=== PATIENT | female | born 1965 | race Hispanic/Latino ===

== ENCOUNTER 2017-07-09 09:50 | Emergency (ER) | payer BC ==
[2017-07-09 11:03] LABS: Absolute Lymphocytes (CBC) 1.8 K/uL (0.7-4.9); Absolute Monocytes 0.6 K/uL (0.1-1.3); Absolute Neutrophil 5.4 K/uL (1.8-8.0); Basophils % 0.3 % (0-1.3); Hematocrit 46.4 % (36.0-45.0); Lymphocytes % 22.7 % (15.3-44.8); MCH 31.3 pg (27.0-35.0); MCV 90.3 fL (80-100); MPV 8.7 fL (7.6-11.3); RBC Red Blood Cell Count 5.14 M/uL (3.86-4.86)
[2017-07-09 11:08] LABS: Protime INR 1.03
[2017-07-09 11:15] LABS: Bicarbonate 29 mEq/L (21-31); Glucose Level 98 mg/dL (65-120); Lipase 19 U/L (22-51); Sodium Level 137 mEq/L (135-145)
[2017-07-09] MEDS ORDERED: ASPIRIN 81 MG CHEWABLE TABLET ONE (11:16)
[2017-07-09 11:21] LABS: ALT/SGPT 40 IU/L (10-60); AST/SGOT 30 IU/L (10-42); Alkaline Phosphatase 94 IU/L (42-121); BUN Blood Urea Nitrogen 11 mg/dL (6-20); Bilirubin Direct 0.1 mg/dL (0-0.2); Bilirubin Total 0.4 mg/dL (0.3-1.2); Creatine Phosphokinase 109 IU/L (22-269); Magnesium 2.2 mg/dL (1.8-2.5); Protein, Total 8.3 g/dL (6.0-8.3)
[2017-07-09 11:23] LABS: CKMB Creatine Kinase MB 2.2 ng/ml (0.3-4.0)
--- NOTE | 2017-07-09 11:46 | RAD REPORT ---
EXAM DESCRIPTION: Vikki Single View07/09/2017 11:15 am CLINICAL HISTORY: Chest pain COMPARISON: April 2017 FINDINGS: The lungs appear clear of acute infiltrate. The heart is normal size IMPRESSION: No acute abnormalities displayed
[2017-07-09 11:47] LABS: Urine Blood NEGATIVE (NEG); Urine Glucose NEGATIVE (NEG); Urine Protein NEGATIVE (NEG)
--- NOTE | 2017-07-09 11:55 | EDPHYS ---
Physician Documentation [facility] Name: Sonya Duff Age: 52 yrs Sex: Female : 1965 Arrival Date: 07/09/2017 Time: 09:52 Bed 8 Private MD: Reema Lehman ED Physician Marcos Cody HPI: 07/09 10:35 This 52 yrs old Female presents to ER via Ambulatory with complaints of Low cp Back Pain, Chest Pain. 10:35 The patient presents with pain that is acute, with no known mechanism of injury. cp 10:35 The symptoms are located in the generalized back pain that started in upper back and cp now radiates to under left breast. The problem was sustained from unknown cause. Onset: The symptoms/episode began/occurred yesterday. Associated signs and symptoms: Pertinent negatives: constipation, dysuria, fever, headache, incontinence, numbness, urinary retention, vomiting, weakness. Severity of symptoms: in the emergency department the symptoms are unchanged, despite home interventions. 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 - Social history:: Smoking status: Patient/guardian denies using tobacco. ROS: 10:40 Constitutional: Negative for body aches, chills, fever, poor PO intake. cp 10:40 Eyes: Negative for injury, pain, redness, and discharge. cp 10:40 ENT: Negative for drainage from ear(s), ear pain, sore throat, difficulty swallowing, difficulty handling secretions. 10:40 Neck: Negative for pain with movement, pain at rest, stiffness, swollen nodes, tenderness. 10:40 Cardiovascular: Positive for chest pain, Negative for edema, palpitations. 10:40 Respiratory: Negative for cough, shortness of breath, wheezing. 10:40 Back: Positive for pain at rest, pain with movement. 10:40 : Negative for urinary symptoms. 10:40 Skin: Negative for cellulitis, rash. 10:40 Neuro: Negative for altered mental status, dizziness, headache, weakness. 10:40 All other systems are negative. Exam: 10:30 ECG was reviewed by the Attending Physician. cp 10:54 Head/Face: Normocephalic, atraumatic. Eyes: Pupils equal round and reactive to light, cp extra-ocular motions intact. Lids and lashes normal. Conjunctiva and sclera are non-icteric and not injected. Cornea within normal limits. Periorbital areas with no swelling, redness, or edema. ENT: Nares patent. No nasal discharge, no septal abnormalities noted. Tympanic membranes are normal and external auditory canals are clear. Oropharynx with no redness, swelling, or masses, exudates, or evidence of obstruction, uvula midline. Mucous membranes moist. Neck: Trachea midline, no thyromegaly or masses palpated, and no cervical lymphadenopathy. Supple, full range of motion without nuchal rigidity, or vertebral point tenderness. No Meningismus. Chest/axilla: Normal chest wall appearance and motion. Nontender with no deformity. No lesions are appreciated. 10:54 Constitutional: The patient appears in no acute distress, alert, awake, non-diaphoretic, non-toxic, well developed, well nourished. 10:54 Cardiovascular: Rate: normal, Rhythm: regular, Pulses: Pulses are 2+ in right radial artery and left radial artery. Heart sounds: murmur, not appreciated, rub, not appreciated, gallop, not appreciated, Edema: is not appreciated, JVD: is not appreciated. 10:54 Respiratory: the patient does not display signs of respiratory distress, Respirations: cp normal, no use of accessory muscles, no retractions, no splinting, no tachypnea, labored breathing, is not present, Breath sounds: are clear throughout, no decreased breath sounds, no stridor, no wheezing. 10:54 Abdomen/GI: Inspection: obese Bowel sounds: active, all quadrants, Palpation: abdomen is soft and non-tender, in all quadrants, rebound tenderness, is not appreciated, voluntary guarding, is not appreciated, involuntary guarding, is not appreciated. 10:54 Back: pain, that is mild, of the left scapular area, right scapular area, left subscapular area, right subscapular area, low back area and mid back area, ROM is normal, muscle spasm, is not present, Straight leg raises: of both lower extremities does not illicit pain. 10:54 Skin: cellulitis, is not appreciated, no rash present. 10:54 Neuro: Orientation: to person, place \T\ time. Mentation: is normal, Cerebellar function: is grossly normal, Motor: moves all fours, strength is normal, Sensation: no obvious gross deficits, Gait: is steady, at a normal pace, without difficulty. Vital Signs: 10:14 BP 152 / 103; Pulse 85; Resp 18; Temp 98.6; Pulse Ox 97% on R/A; Weight 79.83 kg; aj Height 5 ft. 1 in. (154.94 cm); Pain 10/10; 10:45 BP 149 / 97; Pulse 88; Resp 17; Pulse Ox 98% on R/A; tw2 11:14 BP 128 / 87; Pulse 76; Resp 12; Pulse Ox 98% on R/A; tw2 12:03 BP 142 / 90; Pulse 72; Resp 14; Pulse Ox 99% on R/A; tw2 10:14 Body Mass Index 33.25 (79.83 kg, 154.94 cm) aj MDM: 10:20 Patient medically screened. cp 11:00 Differential diagnosis: strain, sciatica, Herniated disc UTI, rhabdomyolysis. cp 11:50 Data reviewed: vital signs, nurses notes, lab test result(s), EKG, radiologic studies, cp plain films. 11:50 Test interpretation: by ED physician or midlevel provider: ECG, plain radiologic cp studies. Response to treatment: the patient's symptoms have mildly improved after treatment, and as a result, I will discharge patient. 07/09 10:37 Order name: Basic Metabolic Panel; Complete Time: 11:40 cp 07/09 11:41 Interpretation: Reviewed. cp 07/09 10:37 Order name: BNP; Complete Time: 11:40 cp 07/09 10:37 Order name: CBC with Diff; Complete Time: 11:40 cp 07/09 11:40 Interpretation: Normal except: RBC 5.14; HGB 16.1; HCT 46.4. cp 07/09 10:37 Order name: Ckmb; Complete Time: 11:40 cp 07/09 10:37 Order name: CPK; Complete Time: 11:40 cp 07/09 10:37 Order name: LFT's; Complete Time: 11:40 cp 07/09 10:37 Order name: Magnesium; Complete Time: 11:40 cp 07/09 11:43 Interpretation: Reviewed. cp 07/09 10:37 Order name: PT-INR; Complete Time: 11:40 cp 07/09 10:37 Order name: Ptt, Activated; Complete Time: 11:40 cp 07/09 10:37 Order name: Troponin (emerg Dept Use Only); Complete Time: 11:40 cp 07/09 11:41 Interpretation: Reviewed. cp 07/09 10:37 Order name: Lipase; Complete Time: 11:40 cp 07/09 11:40 Interpretation: LIP 19; Reviewed. cp 07/09 10:37 Order name: XRAY Chest (1 view); Complete Time: 11:47 cp 07/09 11:47 Interpretation: Report review. 07/09 10:38 Order name: Urine Dipstick--Ancillary (enter results); Complete Time: 11:47 mw 07/09 11:47 Interpretation: Reviewed. 07/09 10:37 Order name: Urine Test (obtain specimen); Complete Time: 11:20 cp 07/09 10:37 Order name: EKG; Complete Time: 10:37 cp 07/09 10:37 Order name: Cardiac monitoring; Complete Time: 11:07 cp 07/09 10:37 Order name: EKG - Nurse/Tech; Complete Time: 11:07 cp 07/09 10:37 Order name: IV Saline Lock; Complete Time: 11:07 cp 07/09 10:37 Order name: Labs collected and sent; Complete Time: 11:07 cp 07/09 10:37 Order name: O2 Per Protocol; Complete Time: 11:07 cp 07/09 10:37 Order name: O2 Sat Monitoring; Complete Time: 11:07 cp 07/09 10:37 Order name: Urine Dipstick-Ancillary (obtain specimen); Complete Time: 11:20 cp EC:30 Rate is 85 beats/min. Rhythm is regular. PA interval is normal. QRS interval is normal. cp QT interval is normal. No ST changes noted. Interpreted by me. Reviewed by me. Administered Medications: 11:20 Drug: Aspirin Chewable Tablet 324 mg Route: PO; tw2 12:20 Follow up: Response: No adverse reaction tw2 Disposition: 19:06 Co-signature as Attending Physician, Marcos Cody MD I agree with the assessment and [facility] plan of care. Disposition: 07/09/17 11:53 Discharged to Home. Impression: Back Pain, Other chest pain. - Condition is Stable. - Discharge Instructions: Back Pain, Adult, Nonspecific Chest Pain, Musculoskeletal Pain, Aspirin and Your Heart, Back Exercises, [id number]. - Prescriptions for Naprosyn 500 mg Oral Tablet - take 1 tablet by ORAL route 2 times per day take with food; 20 tablet. Cyclobenzaprine 10 mg Oral Tablet - take 1 tablet by ORAL route every 8 hours As needed no driving while taking medication; 20 tablet. - Medication Reconciliation Form, Thank You Letter, Antibiotic Education, Prescription Opioid Use, Work release form form. - Follow up: Reema Lehman MD; When: Tomorrow; Reason: Recheck today's complaints, as scheduled. - Problem is new. - Symptoms have improved. Signatures: Dispatcher [employer] Roopa Kate, RN Marcos Moncada MD MD cha Page, Corey, PA PA cp Wise, Tara, RN RN tw2
--- NOTE | 2017-07-09 11:55 | ER ---
Nurse's Notes [facility] Name: Sonya Duff Age: 52 yrs Sex: Female : 1965 Arrival Date: 07/09/2017 Time: 09:52 Bed 8 Private MD: Reema Lehman Diagnosis: Other chest pain;Back Pain Presentation: 07/09 10:12 Presenting complaint: Patient states: Reports mid-low back pain that started yesterday. aj Reports pain radiates to chest. Transition of care: patient was not received from another setting of care. Onset of symptoms was July 08, 2017. Initial Sepsis Screen: Does the patient meet any 2 criteria? No. Patient's initial sepsis screen is negative. Does the patient have a suspected source of infection? No. Patient's initial sepsis screen is negative. Care prior to arrival: None. 10:12 Method Of Arrival: Ambulatory aj 10:12 Acuity: MICHELLE 3 aj Triage Assessment: 10:14 General: Appears in no apparent distress. uncomfortable, Behavior is cooperative, aj appropriate for age, crying. Pain: Complains of pain in left mid back, posterior aspect of left lateral abdomen and anterior aspect of left lateral abdomen. Neuro: Level of Consciousness is awake, alert, obeys commands, Oriented to person, place, time, situation. Cardiovascular: Reports chest pain. Respiratory: Airway is patent Respiratory effort is even, unlabored, Respiratory pattern is regular, symmetrical. GI: Reports nausea. : Reports pain in left flank(s). Derm: Skin is intact, is healthy with good turgor, Skin is pink, warm \T\ dry. normal. 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 - Social history:: Smoking status: Patient/guardian denies using tobacco. Screenin:04 Abuse screen: Denies threats or abuse. Nutritional screening: No deficits noted. tw2 Tuberculosis screening: No symptoms or risk factors identified. Fall Risk None identified. Assessment: 11:15 Reassessment: Patient appears in no apparent distress at this time. No changes from tw2 previously documented assessment. Patient and/or family updated on plan of care and expected duration. Pain level reassessed. Patient is alert, oriented x 3, equal unlabored respirations, skin warm/dry/pink. 12:04 Reassessment: Patient appears in no apparent distress at this time. No changes from tw2 previously documented assessment. Patient and/or family updated on plan of care and expected duration. Pain level reassessed. Patient is alert, oriented x 3, equal unlabored respirations, skin warm/dry/pink. 12:05 Pain: Pain does not radiate. Pain began 1 day ago. tw2 Vital Signs: 10:14 BP 152 / 103; Pulse 85; Resp 18; Temp 98.6; Pulse Ox 97% on R/A; Weight 79.83 kg; aj Height 5 ft. 1 in. (154.94 cm); Pain 10/10; 10:45 BP 149 / 97; Pulse 88; Resp 17; Pulse Ox 98% on R/A; tw2 11:14 BP 128 / 87; Pulse 76; Resp 12; Pulse Ox 98% on R/A; tw2 12:03 BP 142 / 90; Pulse 72; Resp 14; Pulse Ox 99% on R/A; tw2 10:14 Body Mass Index 33.25 (79.83 kg, 154.94 cm) ED Course: 09:52 Patient arrived in ED. rg4 09:52 Reema Lehman MD is Private Physician. rg4 10:13 Triage completed. aj 10:14 Arm band placed on right wrist. Patient placed in an exam room. aj 10:17 Niecy Celis RN is Primary Nurse. tw2 10:20 Marcos Mcguire PA is PHCP. cp 10:20 Marcos Cody MD is Attending Physician. cp 10:20 Placed in gown. Bed in low position. Call light in reach. hospital monitor on. Pulse ox tw2 on. NIBP on. Warm blanket given. 10:32 Inserted saline lock: 20 gauge in left antecubital area, using aseptic technique. Blood tw2 collected. Patient maintains SpO2 saturation greater than 95% on room air. 10:37 EKG done, by geothermal technician. reviewed by Marcos NIETO. at1 11:15 XRAY Chest (1 view) In Process Unspecified. EDMS 11:15 X-ray completed. Portable x-ray completed in exam room. Patient tolerated procedure mh1 well. 11:51 Reema Lehman MD is Referral Physician. cp 12:05 No provider procedures requiring assistance completed. tw2 12:18 IV discontinued, intact, bleeding controlled, No redness/swelling at site. Pressure tw2 dressing applied. Administered Medications: 11:20 Drug: Aspirin Chewable Tablet 324 mg Route: PO; tw2 12:20 Follow up: Response: No adverse reaction tw2 Outcome: 11:53 Discharge ordered by MD. cp 12:18 Discharged to home ambulatory. tw2 12:18 Condition: stable 12:18 Discharge instructions given to patient, Instructed on discharge instructions, follow up and referral plans. no drinking with medication, no driving heavy equipment, medication usage, Demonstrated understanding of instructions, follow-up care, medications, Prescriptions given X 2. 12:19 Patient left the ED. tw2 Signatures: Dispatcher [employer] EDMS Roopa Rene, RN Autumn Rosenthal 1 Roopa farrell, industrial design intern EKG Tat1 Marcos Mcguire PA PA cp Niecy Celis RN RN tw2 Blanquita Garcia rg4
--- NOTE | 2017-07-09 17:02 | EKG ---
Test Date: 2017-07-09 Test Time: 10:24:32 Vice President Media Relations: YAS MEASUREMENT RESULTS: Intervals: Rate: 85 [place]: 124 QRSD: 70 QT: 378 QTc: 449 Lamar: P: 33 [place]: 124 QRS: 14 T: 20 INTERPRETIVE STATEMENTS: Normal sinus rhythm Normal ECG Compared to ECG 02/28/2016 09:18:06 No significant changes Electronically Signed On 07-09-17 17:01:54 CDT by Ramon Nieto
== END 2017-07-09 12:19 | disposition home or self-care (01) ==
LOC: ER 09:50
DX: R07.89 Other chest pain (principal); I10 Essential (primary) hypertension; E11.9 Type 2 diabetes mellitus without complications; E78.00 Pure hypercholesterolemia, unspecified
CPT/HCPCS: 36415; 71045; 80048; 80076; 81003; 82550; 82553; 83690; 83735; 83880; 84484; 85025; 85610; 85730; 93005; 99285

== ENCOUNTER 2019-04-11 15:40 | Emergency (ER) | payer BC ==
--- OUTSIDE RECORDS SUMMARY | 2019-04-11 15:42 | XMS REPORT ---
:1965 [facility] [address] [place] [address] Dr. Coleman [address] [place] [id number] Care Team Providers Name Role Phone Unavailable Unavailable Unavailable Problems This patient has no known problems. Allergies, Adverse Reactions, Alerts This patient has no known allergies or adverse reactions. Medications This patient has no known medications.
--- OUTSIDE RECORDS SUMMARY | 2019-04-11 15:43 | XMS REPORT | Summary of Care ---
:1965 Author Organization [facility] - Health Address [address] [place] [address] Care Team Providers Name Role Phone Reema Lehman Primary Care Provider Encounter Details Date Type Department Care Team Description 10/25/2018 Orders Only [facility] Doctor Unassigned, No [address] [facility] [place] [address] [address] [place] [address] Allergies No Known Allergiesdocumented as of this encounter (statuses as of 10/25/2018) Medications Medication Sig Dispensed Refills Start Date End Date Status zolpidem (AMBIEN) 5 mg Take 5 mg by 0 Active tablet mouth at bedtime as needed for Insomnia. levothyroxine Take 1 Tab by 90 Tab 1 10/06/2014 Active (SYNTHROID) 50 mcg mouth every tabletIndications: morning. Central hypothyroidism lisinopril Take 20 mg by 0 Active (PRINIVIL,ZESTRIL) 20 mg mouth daily. tablet metFORMIN (GLUCOPHAGE) Take 500 mg by 0 Active 500 mg tablet mouth daily. amitriptyline (ELAVIL) Take 50 mg by 0 Active 50 mg tablet mouth at bedtime. pantoprazole (PROTONIX) Take 40 mg by 0 Active 40 mg EC tablet mouth daily. metoprolol tartrate Take 25 mg by 0 Active (LOPRESSOR) 25 mg tablet mouth 2 (two) times daily. clindamycin (CLEOCIN) Take 1 Cap by 30 Cap 1 01/31/2015 Active 150 mg mouth 3 (three) capsuleIndications: times daily. Staph aureus infection mupirocin (BACTROBAN Apply to 22 g 5 01/31/2015 Active OINT) 2 % area(s) 3 ointmentIndications: (three) times Staph aureus infection daily. 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 Clinical Medical Aubree Carr MD [address] [place] [address] Laboratory 1, [facility] Health Maintenance Due Date Last Done Comments PNEUMOCOCCAL 0-64 YEARS COMBINED 1973 SERIES (1 of 1 - PPSV23) EYE EXAM 1977 FOOT EXAM 1985 DTaP,Tdap,and Td Vaccines (1 - 1986 Tdap) PAP SMEAR 05/26/2011 05/25/2008 COLONOSCOPY 2017 Zoster Recombinant Vaccine 2017 (SHINGRIX) (1 of 2) MAMMOGRAM 07/24/2018 07/24/2017, 05/29/2016, 05/18/2015, Additional history exists HgA1C 11/12/2018 05/15/2018, 07/11/2017, 12/30/2016, Additional history exists INFLUENZA VACCINE 11/21/2018 CREATININE (SERUM) 05/15/2019 05/15/2018, 07/11/2017, 12/30/2016, Additional history exists LDL-C 05/15/2019 05/15/2018, 07/11/2017, 12/30/2016, Additional history exists URINE MICROALBUMIN 05/15/2019 05/15/2018, 12/30/2016, 06/05/2016 documented as of this encounter Procedures Procedure Name Priority Date/Time Associated Diagnosis Comments CONSENT/REFUSAL FOR Routine 10/25/2018 12:20 PM DIAGNOSIS AND TREATMENT CDT ASSIGNMENT OF BENEFITS Routine 10/25/2018 12:20 PM CDT documented in this encounter Results Not on filedocumented in this encounter Insurance Payer Benefit Plan Subscriber ID Effective Dates Phone Address Type / Group [facility] [id number] [phone] [address]PO/[place] [id number] [place] [address] documented as of this encounter
--- OUTSIDE RECORDS SUMMARY | 2019-04-11 15:43 | XMS REPORT ---
:1965 Author Organization [employer] Care Team Providers Name Role Phone Fallon Reema Provider Role Unavailable Allergies, Adverse Reactions, Alerts Substance Reaction Event Type N.K.D.A. Info Not Available Non Drug Allergy Problems Problem Type Condition Code Onset Dates Condition Status Assessment Insomnia, unspecified type G47.00 Active Assessment Depression, unspecified depression F32.9 Active type Assessment Hypothyroidism, unspecified type E03.9 Active Assessment Vitamin D deficiency E55.9 Active Assessment Hyperlipidemia, unspecified E78.5 Active hyperlipidemia type Assessment Uncontrolled type 2 diabetes E11.65 Active mellitus with hyperglycemia Assessment Irritable bowel syndrome with K58.1 Active constipation Assessment Dietary surveillance and counseling Z71.3 Active Assessment Obesity (BMI 35.0-39.9 without E66.9 Active comorbidity) Problem Hypothyroidism, unspecified type E03.9 Active Assessment Nausea without vomiting R11.0 Active Problem Hyperlipidemia, unspecified E78.5 Active hyperlipidemia type Assessment Dizziness R42 Active Problem Dietary surveillance and counseling Z71.3 Active Problem Acute left-sided back pain, M54.9 Active unspecified back location Problem Hypertension, unspecified type I10 Active Problem Nausea without vomiting R11.0 Active Problem Irritable bowel syndrome with K58.1 Active constipation Problem Thyroid condition E07.9 Active Problem Dizziness R42 Active Assessment Hypertension, unspecified type I10 Active Problem Hypertension I10 Active Problem Anxiety F41.9 Active Problem Uncontrolled type 2 diabetes E11.65 Active mellitus with hyperglycemia Problem Hyperlipidemia E78.5 Active Problem Type II diabetes mellitus, well E11.9 Active controlled Problem Migraine G43.909 Active Problem Obesity (BMI 35.0-39.9 without E66.9 Active comorbidity) Problem IBS (irritable bowel syndrome) K58.9 Active Problem Insomnia, unspecified type G47.00 Active Problem Depression, unspecified depression F32.9 Active type Problem Edema R60.9 Active Problem Vitamin D deficiency E55.9 Active Medications Medication Code Code Instructions Start End Status Dosage System Date Date Metformin HCl [facility] 62812627533 500 MG Orally Active 1 tablet Once a day Metoprolol [facility] 86987895496 25 MG Orally Active 1 tablet Tartrate Twice a day with food Ultram [facility] 21502532748 50 MG Orally Active 1 tablet bid as needed Zolpidem Tartrate [facility] 11325954192 5 MG Orally Active 1 tablet Once a day at bedtime Linzess [facility] 86817602034 290 MCG Orally Feb 08, Active 1 capsule Once a day [address] [facility] 01661216556 10 MG Orally Active 1 tablet Twice a day prn anxiety Synthroid [facility] 61795430685 50 MCG Orally Active 1 tablet Once a day on an empty stomach in the morning Amitriptyline HCl [facility] 72999774019 75 MG Orally Active 1 tablet Once a day as at bedtime needed for insomnia Wellbutrin XL [facility] 27518660205 150 MG Orally Jen Active 1 tablet Once a day 2017 in the morning Trazodone HCl [facility] 36282725316 100 MG Orally Active 1 tablet Once a day at bedtime Belsomra [facility] 04213384473 10 MG Orally Active 1 tablet Once a day at bedtime as needed Ambien [facility] 05816849205 5 MG Orally Active 1 tablet Once a day at bedtime Vitamin D3 [facility] 57493460625 75866 UNIT Active 1 tablet Orally once a week Lipitor [facility] 86439338376 40 MG Orally Active 1 tablet Once a day in evening Lisinopril [facility] 29036288067 20 mg Orally Active 1 tablet Twice daily HydrOXYzine HCl [facility] 40101605851 25 MG Orally Active 1 tablet every 6 hrs as needed Gabapentin [facility] 86087635522 300 MG Orally Active 1 capsule Once a day before bedtime Norvasc [facility] 81026674536 5 MG Orally Active 1 tablet Once a day Protonix [facility] 62531323750 40 MG Orally Active 1 tablet Once a day Adipex-P [facility] 12781738357 37.5 MG Orally Nancy Active 1 tablet Once a day 22, in am 2018 Results No Known Results Summary Purpose [employer] Submission
--- OUTSIDE RECORDS SUMMARY | 2019-04-11 15:43 | XMS REPORT ---
:1965 Author Organization [employer] Care Team Providers Name Role Phone Reema Lehman Provider Role Unavailable Allergies No Known Allergies Problems Problem Type Condition Code Onset Dates Condition Status Problem Dietary surveillance and counseling Z71.3 Active Problem Acute left-sided back pain, M54.9 Active unspecified back location Problem Hypertension, unspecified type I10 Active Problem Nausea without vomiting R11.0 Active Problem Thyroid condition E07.9 Active Problem Irritable bowel syndrome with K58.1 Active constipation Assessment Hypothyroidism, unspecified type E03.9 Active Problem Dizziness R42 Active Problem Hypertension I10 Active Problem Anxiety [...] Active type Problem Edema R60.9 Active Problem Hypothyroidism, unspecified type E03.9 Active Problem Vitamin D deficiency E55.9 Active Problem Hyperlipidemia, unspecified E78.5 Active hyperlipidemia type Medications Medication Code Code Instructions Start End Status Dosage System Date Date Amitriptyline HCl [facility] 21757137529 75 MG Orally Active 1 tablet Once a day as at bedtime needed for insomnia Lisinopril [facility] 31842384591 20 mg Orally Active 1 tablet Twice daily Wellbutrin XL ND 16805644667 150 MG Orally June Active 1 tablet Once a day 2017 in the morning Metoprolol ND 64226578133 25 MG Orally Active 1 tablet Tartrate Twice a day with food HydrOXYzine HCl ND 06540041096 25 MG Orally Active 1 tablet every 6 hrs as needed Ultram [facility] 09307931416 50 MG Orally Active 1 tablet bid as needed Adipex-P [facility] 51630009970 37.5 MG Orally Nancy Active 1 tablet Once a day 22, in am 2018 Belsomra [facility] 82263971987 10 MG Orally Active 1 tablet Once a day at bedtime as needed Lipitor [facility] 97379610041 40 MG Orally Active 1 tablet Once a day in evening Gabapentin [facility] 38160756391 300 MG Orally Active 1 capsule Once a day before bedtime BusPIRone HCl [facility] 08056230274 10 MG Orally Active 1 tablet Twice a day prn anxiety Protonix [facility] 01889154680 40 MG Orally Active 1 tablet Once a day Norvasc [facility] 86870787940 5 MG Orally Active 1 tablet Once a day Linzess [facility] 88187450699 290 MCG Orally Feb 08, Active 1 capsule Once a day 2018 Synthroid [facility] 96214718039 50 MCG Orally Active 1 tablet Once a day on an empty stomach in the morning Vitamin D3 [facility] 31790394174 33748 UNIT Active 1 tablet Orally once a week Trazodone HCl [facility] 49839944205 100 MG Orally Active 1 tablet Once a day at bedtime Zolpidem Tartrate [facility] 70224636467 5 MG Orally Active 1 tablet Once a day at bedtime Metformin HCl [facility] 24607083250 500 MG Orally Active 1 tablet Once a day Ambien [facility] 62222590535 5 MG Orally Active 1 tablet Once a day at bedtime Results No Known Results Summary Purpose eClinicalWorks Submission
--- OUTSIDE RECORDS SUMMARY | 2019-04-11 15:44 | XMS REPORT | Summary of Care ---
:1965 Author Organization [facility] Address [address] [place] [id number] Care Team Providers Name Role Phone Reema Lehman Primary Care Provider Reason for Visit Reason Comments LAB WORK Auth/Cert Status Reason Specialty Diagnoses / Referred By Referred To Procedures Contact Contact Clinical Medical Diagnoses Essential (primary) hypertension Obesity, unspecified Essential (primary) hypertension [I10] Obesity, unspecified [E66.9] [facility] Lab Laboratory Procedures VITAMIN D, 25-OH GLYCOSYLATED HEMOGLOBIN (A1C) THYROID STIMULATING HORMONE MICROALBUMIN URINE CBC WITH DIFF COMP. 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 Utility Fatigue 06/06/2014 documented as of this [...] filedocumented in this encounter Plan of Treatment Name Type Priority Associated Diagnoses Date/Time FREE T3 LAB Routine Hypertension, unspecified 10/25/2018 12:58 PM type CDT Obesity, unspecified classification, unspecified obesity type, unspecified whether serious comorbidity present Uncontrolled type 2 diabetes mellitus with hyperglycemia Hyperlipidemia, unspecified hyperlipidemia type Hypothyroidism, adult Insomnia, unspecified type Depression, unspecified depression type FREE T4 LAB Routine Hypertension, unspecified 10/25/2018 12:58 PM type CDT Obesity, unspecified classification, unspecified obesity type, unspecified whether serious comorbidity present Uncontrolled type 2 diabetes mellitus with hyperglycemia Hyperlipidemia, unspecified hyperlipidemia type Hypothyroidism, adult Insomnia, unspecified type Depression, unspecified depression type LIPID PANEL LAB Routine Hypertension, unspecified 10/25/2018 12:58 PM (43723)(TOTAL type CDT CHOLESTEROL, Obesity, unspecified TRIGLYCERIDES, HDL) classification, unspecified obesity type, unspecified whether serious comorbidity present Uncontrolled type 2 diabetes mellitus with hyperglycemia Hyperlipidemia, unspecified hyperlipidemia type Hypothyroidism, adult Insomnia, unspecified type Depression, unspecified depression type CBC WITH DIFF LAB Routine Hypertension, unspecified 10/25/2018 12:58 PM type CDT Obesity, unspecified classification, unspecified obesity type, unspecified whether serious comorbidity present Uncontrolled type 2 diabetes mellitus with hyperglycemia Hyperlipidemia, unspecified hyperlipidemia type Hypothyroidism, adult Insomnia, unspecified type Depression, unspecified depression type COMP. METABOLIC PANEL LAB Routine Hypertension, unspecified 10/25/2018 12: 58 PM (06750) type CDT Obesity, unspecified classification, unspecified obesity type, unspecified whether serious comorbidity present Uncontrolled type 2 diabetes mellitus with hyperglycemia Hyperlipidemia, unspecified hyperlipidemia type Hypothyroidism, adult Insomnia, unspecified type Depression, unspecified depression type MICROALBUMIN URINE LAB Routine Hypertension, unspecified 10/25/2018 12:58 PM type CDT Obesity, unspecified classification, unspecified obesity type, unspecified whether serious comorbidity present Uncontrolled type 2 diabetes mellitus with hyperglycemia Hyperlipidemia, unspecified hyperlipidemia type Hypothyroidism, adult Insomnia, unspecified type Depression, unspecified depression type THYROID STIMULATING LAB Routine Hypertension, unspecified 10/25/2018 12:58 PM HORMONE type CDT Obesity, unspecified classification, unspecified obesity type, unspecified whether serious comorbidity present Uncontrolled type 2 diabetes mellitus with hyperglycemia Hyperlipidemia, unspecified hyperlipidemia type Hypothyroidism, adult Insomnia, unspecified type Depression, unspecified depression type GLYCOSYLATED HEMOGLOBIN LAB Routine Hypertension, unspecified 10/25/2018 12 :58 PM (A1C) type CDT Obesity, unspecified classification, unspecified obesity type, unspecified whether serious comorbidity present Uncontrolled type 2 diabetes mellitus with hyperglycemia Hyperlipidemia, unspecified hyperlipidemia type Hypothyroidism, adult Insomnia, unspecified type Depression, unspecified depression type VITAMIN D, 25-OH LAB Routine Hypertension, unspecified 10/25/2018 12:58 PM type CDT Obesity, unspecified classification, unspecified obesity type, unspecified whether serious comorbidity present Uncontrolled type 2 diabetes mellitus with hyperglycemia Hyperlipidemia, unspecified hyperlipidemia type Hypothyroidism, adult Insomnia, unspecified type Depression, unspecified depression type CBC WITH DIFFERENTIAL LAB Routine Hypertension, unspecified 10/25/2018 12: 58 PM type CDT Obesity, unspecified classification, unspecified obesity type, unspecified whether serious comorbidity present Uncontrolled type 2 diabetes mellitus with hyperglycemia Hyperlipidemia, unspecified hyperlipidemia type Hypothyroidism, adult Insomnia, unspecified type Depression, unspecified depression type Health Maintenance Due Date Last Done Comments [...] 12/30/2016, 06/05/2016 documented as of this encounter Results Not on filedocumented in this encounter Visit Diagnoses Diagnosis Obesity, unspecified classification, unspecified obesity type, unspecified whether serious comorbidity present - Primary Hypertension, unspecified type Uncontrolled type 2 diabetes mellitus with hyperglycemia Hyperlipidemia, unspecified hyperlipidemia type Hypothyroidism, adult Other specified acquired hypothyroidism Insomnia, unspecified type Depression, unspecified depression type documented in this encounter Insurance Payer Benefit Plan Subscriber ID Effective Dates Phone Address Type / Group [employer] [facility] [id number] 2014-Yvette [phone] [address] PPO/POS [facility] [id number] [place] [address] documented as of this encounter
--- OUTSIDE RECORDS SUMMARY | 2019-04-11 15:44 | XMS REPORT ---
:1965 Author Organization [employer] Care Team Providers Name Role Phone Reema Lehman Provider Role Unavailable Allergies No Known Allergies Problems Problem Type Condition Code Onset Dates Condition Status Problem Migraine G43.909 Active Problem Vitamin D deficiency E55.9 Active Problem Edema R60.9 Active Problem Nausea and vomiting, intractability R11.2 Active of vomiting not specified, unspecified vomiting type Problem Depression, unspecified depression F32.9 Active type Problem Abdominal pain, unspecified R10.9 Active abdominal location Problem Acute left-sided back pain, M54.9 Active unspecified back location Problem Hypertension, unspecified type I10 Active Problem Migraine without status G43.909 Active migrainosus, not intractable, unspecified migraine type Problem Uncontrolled type 2 diabetes E11.65 Active mellitus with hyperglycemia Problem Dizziness R42 Active Problem Irritable bowel syndrome with K58.1 Active constipation Problem Nausea without vomiting R11.0 Active Problem Anxiety F41.9 Active Problem Hypertension I10 Active Problem Hypothyroidism, unspecified type E03.9 Active Problem Hyperlipidemia, unspecified E78.5 Active hyperlipidemia type Problem Thyroid condition E07.9 Active Problem Obesity (BMI 35.0-39.9 without E66.9 Active comorbidity) Problem Hyperlipidemia E78.5 Active Problem IBS (irritable bowel syndrome) K58.9 Active Problem Dietary surveillance and counseling Z71.3 Active Problem Insomnia, unspecified type G47.00 Active Problem Type II diabetes mellitus, well E11.9 Active controlled Medications Medication Code System Code Instructions Start Date End Date Status Dosage Crestor [facility] 02916725173 20 MG Orally Once Oct 29, Active 1 tablet a day 2019 Results No Known Results Summary Purpose eClinicalWorks Submission
--- OUTSIDE RECORDS SUMMARY | 2019-04-11 15:44 | XMS REPORT ---
:1965 Author Organization eClinicalWorks Care Team Providers Name Role Phone Fallon Reema Provider Role Unavailable Allergies, Adverse Reactions, Alerts Substance Reaction Event Type N.K.D.A. Info Not Available Non Drug Allergy Problems Problem Type Condition Code Onset Dates Condition Status Assessment Hypothyroidism, unspecified type E03.9 Active Assessment Vitamin D deficiency E55.9 Active Assessment Uncontrolled type 2 diabetes E11.65 Active mellitus with hyperglycemia Assessment Hyperlipidemia, unspecified E78.5 Active hyperlipidemia type Assessment Irritable bowel syndrome with K58.1 Active constipation Assessment Abdominal pain, unspecified R10.9 Active abdominal location Assessment Nausea and vomiting, intractability R11.2 Active of vomiting not specified, unspecified vomiting type Assessment Migraine without status G43.909 Active migrainosus, not intractable, unspecified migraine type Assessment Hypertension, unspecified type I10 Active Problem IBS (irritable bowel syndrome) K58.9 Active Problem Type II diabetes mellitus, well E11.9 Active controlled Problem Dietary surveillance and counseling Z71.3 Active Problem Migraine G43.909 Active Problem Vitamin D deficiency E55.9 Active Problem Edema R60.9 Active Problem Nausea and vomiting, intractability R11.2 Active of vomiting not specified, unspecified vomiting type Problem Abdominal pain, unspecified R10.9 Active abdominal location Problem Depression, unspecified depression F32.9 Active type Problem Acute left-sided back pain, M54.9 Active unspecified back location Problem Migraine without status G43.909 Active migrainosus, not intractable, unspecified migraine type Problem Hypertension, unspecified type I10 Active Problem Uncontrolled type 2 diabetes E11.65 Active mellitus with hyperglycemia Problem Dizziness R42 Active Problem Irritable bowel syndrome with K58.1 Active constipation Problem Nausea without vomiting R11.0 Active Assessment Insomnia, unspecified type G47.00 Active Problem Anxiety F41.9 Active Assessment Obesity (BMI 35.0-39.9 without E66.9 Active comorbidity) Problem Hypertension I10 Active Problem Hypothyroidism, unspecified type E03.9 Active Assessment Depression, unspecified depression F32.9 Active type Problem Hyperlipidemia, unspecified E78.5 Active hyperlipidemia type Problem Thyroid condition E07.9 Active Problem Obesity (BMI 35.0-39.9 without E66.9 Active comorbidity) Problem Hyperlipidemia E78.5 Active Problem Insomnia, unspecified type G47.00 Active Medications Medication Code Code Instructions Start End Status Dosage System Date Date Zolpidem [facility] 34197049237 5 MG Orally Active 1 tablet at Tartrate Once a day bedtime Vitamin D3 [facility] 49127273501 80219 UNIT Active 1 tablet Orally once a week Topamax [facility] 39620569416 25 MG Orally Oct 25, Active 1 tablet at Once a day 2018 bedtime for migraines Ambien [facility] 37682765256 5 MG Orally Active 1 tablet at Once a day bedtime BusPIRone HCl [facility] 90157415064 10 MG Orally Active 1 tablet Twice a day prn anxiety Lisinopril [facility] 47520353413 20 mg Orally Active 1 tablet Twice daily Trazodone HCl [facility] 40245868883 100 MG Orally Active 1 tablet at Once a day bedtime Wellbutrin XL [facility] 25345986864 150 MG Orally Jen Active 1 tablet in Once a day 2017 the morning Synthroid [facility] 60767290443 50 MCG Orally Active 1 tablet on Once a day an empty stomach in the morning Metoprolol [facility] 48087358650 25 MG Orally Active 1 tablet Tartrate Twice a day with food Belsomra [facility] 06090660737 10 MG Orally Active 1 tablet at Once a day bedtime as needed Metformin HCl [facility] 94584588036 500 MG Orally Active 1 tablet Once a day Lipitor [facility] 56770941080 40 MG Orally Active 1 tablet in Once a day evening Gabapentin [facility] 82629436899 300 MG Orally Active 1 capsule Once a day before bedtime Linzess [facility] 28842798600 290 MCG Orally July 21, Active 1 capsule Once a day 2019 Protonix [facility] 40921284597 40 MG Orally Active 1 tablet Once a day Ultram [facility] 98960087843 50 MG Orally Active 1 tablet as bid needed Amitriptyline [facility] 50560777135 75 MG Orally Active 1 tablet at HCl Once a day as bedtime needed for insomnia Norvasc [facility] 84312077899 5 MG Orally Active 1 tablet Once a day Zofran [facility] 89966489296 4 MG Orally Oct 25, Active 1 tablet as Every 4-6 hours 2018 needed for nausea/vomi ting HydrOXYzine HCl [facility] 58769946475 25 MG Orally Active 1 tablet as every 6 hrs needed Imitrex [facility] 77843292229 50 MG Orally 1 Oct 25, Active as directed tablet 2018 initially for migraine; may repeat q2h prn MYERS; max of 200 mg/day Results No Known Results Summary Purpose eClinicalWorks Submission
[2019-04-11] MEDS ORDERED: MAGNE/ALUM HYDROXD 30 ML UCUP ONE (16:19)
[2019-04-11] MEDS ORDERED: NA CHLORIDE 0.9% 1,000 ML ONE (16:20)
[2019-04-11] MEDS ORDERED: ONDANSETRON 4 MG/2 ML VIAL ONE (16:20)
[2019-04-11] MEDS ORDERED: LIDOCAINE VISCOUS 2% SOLN 15 ML UDC ONE (16:20)
[2019-04-11] MEDS ORDERED: MORPHINE 2 MG/ML SYR ONE (16:20)
[2019-04-11] MEDS ORDERED: FAMOTIDINE 20 MG/2 ML VIAL IV ONE (16:20)
[2019-04-11 16:33] LABS: Absolute Lymphocytes (CBC) 2.3 K/uL (0.7-4.9); Basophils % 0.7 % (0-1.3); Hematocrit 41.2 % (36.0-45.0); Lymphocytes % 31.8 % (15.3-44.8); MPV 8.6 fL (7.6-11.3)
[2019-04-11 16:56] LABS: Albumin 3.9 g/dL (3.4-5.0); Bilirubin Direct 0.1 mg/dL (0-0.2); Bilirubin Total 0.3 mg/dL (0.2-1.0); Protein, Total 7.2 g/dL (6.4-8.2)
[2019-04-11 17:13] LABS: Urine Blood NEGATIVE (NEG); Urine Glucose NEGATIVE (NEG); Urine Protein NEGATIVE (NEG)
--- NOTE | 2019-04-11 17:50 | RAD REPORT ---
EXAM DESCRIPTION: CT - Abdomen Pelvis W Contrast - 04/11/2019 5:27 pm CLINICAL HISTORY: Abdominal pain COMPARISON: 2015 TECHNIQUE: Computed axial tomography of the abdomen pelvis was obtained. 100 cc Isovue-300 was admin istered intravenously. Oral contrast was not requested which limits evaluation of bowel. All CT scans are performed using dose optimization technique as appropriate and may include automated exposure control or mA/KV adjustment according to patient size. FINDINGS: Fatty liver Spleen, pancreas, adrenal and kidneys appear unremarkable. There is no evidence of diverticulitis. A normal appendix. Hysterectomy. Small umbilical hernia A 9 millimeter partially calcified splenic arterial aneurysm IMPRESSION: A 9 millimeter partially calcified splenic arterial aneurysm Fatty liver
--- NOTE | 2019-04-11 17:57 | ER ---
Nurse's Notes [facility] Name: Sonya Duff Age: 54 yrs Sex: Female : 1965 Arrival Date: 04/11/2019 Time: 15:42 Bed 7 Private MD: Diagnosis: Upper abdominal pain, unspecified Presentation: 04/11 15:47 Presenting complaint: Patient states: i have abdominal pain radiating to my back for 4 mg2 days now. i had tummy tuck done last year Nov. Olga been nauseous too. Transition of care: patient was not received from another setting of care. Onset of symptoms was March 2019. Risk Assessment: Do you want to hurt yourself or someone else? Patient reports no desire to harm self or others. Initial Sepsis Screen: Does the patient meet any 2 criteria? No. Patient's initial sepsis screen is negative. Does the patient have a suspected source of infection? No. Patient's initial sepsis screen is negative. Care prior to arrival: None. 15:47 Method Of Arrival: Ambulatory mg2 15:47 Acuity: MICHELLE 3 mg2 Historical: - Allergies: 15:50 No Known Allergies; mg2 - Home Meds: 15:50 lisinopril Oral [Active]; Metformin Oral [Active]; Metoprolol Tartrate Oral [Active]; mg2 - PMHx: 15:50 Diabetes - NIDDM; Gastric Reflux; High Cholesterol; Hypertension; mg2 - PSHx: 15:50 tummy tuck; mg2 - Immunization history:: Flu vaccine is not up to date. - Social history:: Smoking status: Patient denies any tobacco usage or history of. Patient uses alcohol, occasionally. Patient/guardian denies using street drugs, IV drugs, Patient/guardian denies using alcohol, The patient lives with family. - Ebola Screening: : No symptoms or risks identified at this time. - Family history:: not pertinent. Screenin:53 Abuse screen: Denies threats or abuse. Denies injuries from another. Nutritional sv screening: No deficits noted. Tuberculosis screening: No symptoms or risk factors identified. Fall Risk None identified. Assessment: 16:20 General: Appears in no apparent distress. uncomfortable, well groomed, well developed, sv Behavior is calm, cooperative, appropriate for age. General: Reports HTN that has been ongoing for years, Dr Lehman has been adjusting her BP meds routinely and says her BP fluctuates. Pain: Complains of pain in chest Pain radiates to back Pain currently is 5 out of 10 on a pain scale. Pain began 1 day ago. Is intermittent. Neuro: Level of Consciousness is awake, alert, obeys commands, Oriented to person, place, time, situation, Moves all extremities. Full function Gait is steady, Speech is normal. Respiratory: Airway is patent Respiratory effort is even, unlabored, Respiratory pattern is regular, symmetrical. GI: Abdomen is round Abd is soft X 4 quads Reports lower abdominal pain, upper abdominal pain, nausea. Derm: Skin is pink, warm \T\ dry. 17:00 Reassessment: Patient appears in no apparent distress at this time. Patient and/or sv family updated on plan of care and expected duration. Pain level reassessed. Patient is alert, oriented x 3, equal unlabored respirations, skin warm/dry/pink. 18:15 Reassessment: Patient appears in no apparent distress at this time. Patient and/or sv family updated on plan of care and expected duration. Pain level reassessed. Patient is alert, oriented x 3, equal unlabored respirations, skin warm/dry/pink. Patient states feeling better. Patient states symptoms have improved. Vital Signs: 15:49 BP 155 / 85; Pulse 87; Resp 18; Temp 98.3; Pulse Ox 100% on R/A; Weight 81.65 kg; mg2 Height 5 ft. 2 in. (157.48 cm); 16:42 BP 174 / 107; Pulse 88; Resp 16; Pulse Ox 96% ; sv 17:06 BP 150 / 88; Pulse 78; Resp 16; Pulse Ox 95% ; sv 18:14 BP 146 / 89; Pulse 77; Resp 17; Pulse Ox 99% ; sv 15:49 Body Mass Index 32.92 (81.65 kg, 157.48 cm) mg2 ED Course: 15:42 Patient arrived in ED. ds1 15:49 Triage completed. mg2 15:50 Arm band placed on. mg2 15:53 Sheyla Son, DOUGLAS is Primary Nurse. sv 15:53 Patient has correct armband on for positive identification. Placed in gown. Bed in low sv position. Call light in reach. Door closed. Head of bed elevated. 15:55 Lana Moy MD is Attending Physician. ma2 16:00 Pulse ox on. NIBP on. jp3 16:00 Patient maintains SpO2 saturation greater than 95% on room air. jp3 16:00 Urine collected: clean catch specimen, clear, jack colored. jp3 16:20 Inserted saline lock: 20 gauge in left antecubital area, using aseptic technique. Blood sv collected. Flushed left antecubital with 5 ml normal saline. 16:[address] Scan. sv 17:[address] via wheelchair. sv 17:27 CT Abd/Pelvis - IV Contrast Only In Process Unspecified. EDMS 18:15 No provider procedures requiring assistance completed. IV discontinued, intact, sv bleeding controlled, No redness/swelling at site. Pressure dressing applied. Administered Medications: 16:30 Drug: NS 0.9% 1000 ml Route: IV; Rate: 1 bolus; Site: left antecubital; sv 18:15 Follow up: Response: No adverse reaction; IV Status: Completed infusion; IV Intake: sv 1000ml 16:30 Drug: Zofran 4 mg Route: IVP; Site: left antecubital; sv 17:08 Follow up: Response: No adverse reaction sv 16:32 Drug: Pepcid 20 mg Route: IVP; Site: left antecubital; sv 17:08 Follow up: Response: No adverse reaction sv 16:34 Drug: morphine 2 mg {Note: rass0.} Route: IVP; Site: left antecubital; sv 17:08 Follow up: Response: No adverse reaction; RASS: Alert and Calm (0) sv 16:39 Drug: GI Cocktail without - (Maalox Suspension 30 ml, Lidocaine Liquid 2 % 15 sv ml) Route: PO; 17:08 Follow up: Response: No adverse reaction sv Intake: 18:15 IV: 1000ml; Total: 1000ml. sv Outcome: 17:56 Discharge ordered by . ma2 18:15 Discharged to home ambulatory, with family. sv 18:15 Condition: stable 18:15 Discharge instructions given to patient, Instructed on discharge instructions, follow up and referral plans. medication usage, Demonstrated understanding of instructions, follow-up care, medications, Prescriptions given X 2. 18:15 Patient left the ED. sv Signatures: Dispatcher [employer] EDMT Sheyla Son RN RN Christine Sterling ds1 Lana Moy MD MD ma2 Grover Christianson RN RN mg2 Macario Cr jp3 Corrections: (The following items were deleted from the chart) 16:39 16:34 morphine 2 mg IVP in left antecubital sv sv
--- NOTE | 2019-04-11 17:57 | EDPHYS ---
Physician Documentation [facility] Name: Sonya Duff Age: 54 yrs Sex: Female : 1965 Arrival Date: 04/11/2019 Time: 15:42 Bed 7 Private MD: ED Physician Lana Moy HPI: 04/11 16:13 This 54 yrs old Female presents to ER via Ambulatory with complaints of ma2 Abdominal Pain, High Blood Pressure. 16:13 Onset: The symptoms/episode began/occurred gradually, 1 day(s) ago. Associated signs ma2 and symptoms: Pertinent negatives: dizziness, lightheadedness, visual changes, vomiting. Severity of symptoms: At its worst the blood pressure was mild, in the emergency department the blood pressure is unchanged. The patient has not experienced similar symptoms in the past. Historical: - Allergies: 15:50 No Known Allergies; mg2 - Home Meds: 15:50 lisinopril Oral [Active]; Metformin Oral [Active]; Metoprolol Tartrate Oral [Active]; mg2 - PMHx: 15:50 Diabetes - NIDDM; Gastric Reflux; High Cholesterol; Hypertension; mg2 - PSHx: 15:50 tummy tuck; mg2 - Immunization history:: Flu vaccine is not up to date. - Social history:: Smoking status: Patient denies any tobacco usage or history of. Patient uses alcohol, occasionally. Patient/guardian denies using street drugs, IV drugs, Patient/guardian denies using alcohol, The patient lives with family. - Ebola Screening: : No symptoms or risks identified at this time. - Family history:: not pertinent. ROS: 16:13 Constitutional: Negative for fever, chills, and weight loss. ma2 16:13 All other systems are negative. Exam: 16:13 Constitutional: This is a well developed, well nourished patient who is awake, alert, ma2 and in no acute distress. Neck: Trachea midline, no thyromegaly or masses palpated, and no cervical lymphadenopathy. Supple, full range of motion without nuchal rigidity, or vertebral point tenderness. No Meningismus. Chest/axilla: Normal chest wall appearance and motion. Nontender with no deformity. No lesions are appreciated. Cardiovascular: Regular rate and rhythm with a normal S1 and S2. No gallops, murmurs, or rubs. Normal PMI, no JVD. No pulse deficits. Respiratory: Lungs have equal breath sounds bilaterally, clear to auscultation and percussion. No rales, rhonchi or wheezes noted. No increased work of breathing, no retractions or nasal flaring. Abdomen/GI: Soft, non-tender, with normal bowel sounds. No distension or tympany. No guarding or rebound. No evidence of tenderness throughout. MS/ Extremity: Pulses equal, no cyanosis. Neurovascular intact. Full, normal range of motion. Neuro: Awake and alert, GCS 15, oriented to person, place, time, and situation. Cranial nerves II-XII grossly intact. Motor strength 5/5 in all extremities. Sensory grossly intact. Cerebellar exam normal. Normal gait. Vital Signs: 15:49 BP 155 / 85; Pulse 87; Resp 18; Temp 98.3; Pulse Ox 100% on R/A; Weight 81.65 kg; mg2 Height 5 ft. 2 in. (157.48 cm); 16:42 BP 174 / 107; Pulse 88; Resp 16; Pulse Ox 96% ; sv 17:06 BP 150 / 88; Pulse 78; Resp 16; Pulse Ox 95% ; sv 18:14 BP 146 / 89; Pulse 77; Resp 17; Pulse Ox 99% ; sv 15:49 Body Mass Index 32.92 (81.65 kg, 157.48 cm) mg2 MDM: 15:55 Patient medically screened. ma2 16:13 Differential diagnosis: hypertensive crisis, abd pain, vs gastritis. Data reviewed: ma2 vital signs, nurses notes. Counseling: I had a detailed discussion with the patient and/or guardian regarding: the historical points, exam findings, and any diagnostic results supporting the discharge/admit diagnosis, the presence of at least one elevated blood pressure reading (>120/80) during this emergency department visit, the need for outpatient follow up. Response to treatment: the patient's symptoms have markedly improved after treatment. 04/11 16:00 Order name: Urine Dipstick--Ancillary (enter results); Complete Time: 17:55 bd 04/11 16:00 Order name: Urine --Ancillary (enter results); Complete Time: 17:55 bd 04/11 16:06 Order name: Basic Metabolic Panel; Complete Time: 17:55 ma2 01/20 16:06 Order name: CBC with Diff; Complete Time: 17:55 ma2 04/11 16:06 Order name: Creatinine for Radiology; Complete Time: 17:55 ma2 04/11 16:06 Order name: Hepatic Function; Complete Time: 17:55 ma2 04/11 16:06 Order name: Lipase; Complete Time: 17:55 ma2 04/11 16:06 Order name: IV Saline Lock; Complete Time: 16:28 ma2 04/11 16:12 Order name: CT Abd/Pelvis - IV Contrast Only; Complete Time: 17:55 ma2 04/11 16:06 Order name: Labs collected and sent; Complete Time: 16:28 ma2 04/11 16:06 Order name: Urine Dipstick-Ancillary (obtain specimen); Complete Time: 16:28 ma2 Administered Medications: 16:30 Drug: NS 0.9% 1000 ml Route: IV; Rate: 1 bolus; Site: left antecubital; sv 18:15 Follow up: Response: No adverse reaction; IV Status: Completed infusion; IV Intake: sv 1000ml 16:30 Drug: Zofran 4 mg Route: IVP; Site: left antecubital; sv 17:08 Follow up: Response: No adverse reaction sv 16:32 Drug: Pepcid 20 mg Route: IVP; Site: left antecubital; sv 17:08 Follow up: Response: No adverse reaction sv 16:34 Drug: morphine 2 mg {Note: rass0.} Route: IVP; Site: left antecubital; sv 17:08 Follow up: Response: No adverse reaction; RASS: Alert and Calm (0) sv 16:39 Drug: GI Cocktail without - (Maalox Suspension 30 ml, Lidocaine Liquid 2 % 15 sv ml) Route: PO; 17:08 Follow up: Response: No adverse reaction sv Disposition: 04/11/19 17:56 Discharged to Home. Impression: Upper abdominal pain, unspecified. - Condition is Stable. - Discharge Instructions: Abdominal Pain, Adult. - Prescriptions for Pepcid 20 mg Oral Tablet - take 1 tablet by ORAL route every 12 hours for 5 days; 10 tablet. Zofran 4 mg Oral Tablet - take 1 tablet by ORAL route every 12 hours As needed; 20 tablet. - Medication Reconciliation Form, Thank You Letter, Antibiotic Education, Prescription Opioid Use form. - Follow up: Private Physician; When: Tomorrow; Reason: Continuance of care. Signatures: Dispatcher [employer] Sheyla Villalta RN RN sv Lana Moy MD MD ma2 Grover Christianson RN RN mg2 Corrections: (The following items were deleted from the chart) 18:15 17:56 04/11/2019 17:56 Discharged to Home. Impression: Upper abdominal pain, sv unspecified. Condition is Stable. Prescriptions for Pepcid 20 mg Oral Tablet - take 1 tablet by ORAL route every 12 hours for 5 days; 10 tablet, Zofran 4 mg Oral Tablet - take 1 tablet by ORAL route every 12 hours As needed; 20 tablet. and Forms are Medication Reconciliation Form, Thank You Letter, Antibiotic Education, Prescription Opioid Use. Follow up: Private Physician; When: Tomorrow; Reason: Continuance of care. ma2
[2019-04-11 21:20] VITALS: TEMP 98.3
[2019-04-11 21:23] VITALS: BP 146/89; O2SAT 99
== END 2019-04-11 18:15 | disposition home or self-care (01) ==
LOC: ER 15:40
DX: R10.10 Upper abdominal pain, unspecified (principal); I10 Essential (primary) hypertension; E11.9 Type 2 diabetes mellitus without complications; E78.00 Pure hypercholesterolemia, unspecified
CPT/HCPCS: 96361; 85025; 80048; 36415; 81025; 80076; 81003; 83690; 74177; 96375; 96374; 99285; Q9967; J2270; J7030; J2405

== ENCOUNTER 2019-07-16 12:20 | Emergency (ER) | payer BC ==
--- OUTSIDE RECORDS SUMMARY | 2019-07-16 12:22 | XMS REPORT ---
:1965 Author Organization [employer] Care Team Providers Name Role Phone Reema Lehman Provider Role Unavailable Allergies No Known Allergies Problems Problem Type Condition Code Onset Dates Condition Statu s Problem Dietary surveillance and counseling Z71.3 Active Problem Acute left-sided back pain, M54.9 Active unspecified back location Problem Hypertension, unspecified type I10 Active Problem Nausea without vomiting R11.0 Acti ve Problem Thyroid condition E07.9 Active Problem Irritable [...] K58.9 Active Problem Insomnia, unspecified type G47.00 A ctive Problem Depression, unspecified depression F32.9 Active type Problem Edema R60.9 Active Problem Hypothyroidism, unspecified type E03.9 Active Problem Vitamin D deficiency E55.9 Active Problem Hyperlipidemia, unspecified E78.5 Active hyperlipidemia type Medications Medication Code Code Instructions Start End Status Dosage System Date Date Amitriptyline HCl ND 54794779393 75 MG Orally Activ e 1 tablet Once a day as at bedtime needed for insomnia Lisinopril ND 34530018743 20 mg Orally Active 1 ta blet Twice daily Wellbutrin XL ND 52191089289 150 MG Orally Jen Active 1 tablet Once a day 2017 in the morning Metoprolol ND 23742789782 25 MG Orally Active 1 ta blet Tartrate Twice a day with food HydrOXYzine HCl ND 78005562087 25 MG Orally Active 1 tablet every 6 hrs as needed Ultram ND 76611422621 50 MG Orally Active 1 table t bid as needed Adipex-P ND 36452328330 37.5 MG Orally Nancy Active 1 ta blet Once a day , in am [address] [facility] 04948890169 10 MG Orally Active 1 tabl et Once a day at bedtime as needed Lipitor [facility] 81477508189 40 MG Orally Active 1 table t Once a day in evening Gabapentin [facility] 09548886493 300 MG Orally Active 1 c apsule Once a day before bedtime BusPIRone HCl [facility] 96709318424 10 MG Orally Active 1 tablet Twice a day prn anxiety Protonix [facility] 32908565314 40 MG Orally Active 1 tabl et Once a day Norvasc [facility] 38606968053 5 MG Orally Active 1 tablet Once a day Linzess [facility] 03702362518 290 MCG Orally Feb 08, Active 1 cap timmy Once a day [address] [facility] 95007849859 50 MCG Orally Active 1 ta blet Once a day on an empty stomach in the morning Vitamin D3 [facility] 83061537071 61889 UNIT Active 1 tabl et Orally once a week Trazodone HCl [facility] 76230208029 100 MG Orally Active 1 tablet Once a day at bedtime Zolpidem Tartrate [facility] 64376375646 5 MG Orally Active 1 tablet Once a day at bedtime Metformin HCl [facility] 33085469124 500 MG Orally Active 1 tablet Once a day Ambien [facility] 98106810714 5 MG Orally Active 1 tablet Once a day at bedtime Results No Known Results Summary Purpose [employer] Submission
--- OUTSIDE RECORDS SUMMARY | 2019-07-16 12:22 | XMS REPORT ---
:1965 Author Organization [facility] t Address [address] [place] [address] Care Team Providers Name Role Phone Unavailable Unavailable Unavailable Problems Condition Condition Condition Status Onset Resolution Last Treatin g Comments Name Details Category Date Date Treatment Clinician Date Insomnia, Insomnia, Problem Active unspecified unspecified type type Obesity Obesity Problem Active (BMI (BMI 35.0-39.9 35.0-39.9 without without comorbidity comorbidity ) ) Dietary Dietary Problem Active surveillanc surveillanc e and e and counseling counseling Vitamin D Vitamin D Problem Active deficiency deficiency Hypothyroid Hypothyroid Problem Active ism, ism, unspecified unspecified type type Hyperlipide Hyperlipide Problem Active jt jt Thyroid Thyroid Problem Active condition condition IBS IBS Problem Active (irritable (irritable bowel bowel syndrome) syndrome) Hypertensio Hypertensio Problem Active n, n, unspecified unspecified type type Anxiety Anxiety Problem Active Depression, Depression, Problem Active unspecified unspecified depression depression type type Type II Type II Problem Active diabetes diabetes mellitus, mellitus, well well controlled controlled Migraine Migraine Problem Active without without status status migrainosus migrainosus , not , not intractable intractable , , unspecified unspecified migraine migraine type type Edema Edema Problem Active Acute Acute Problem Active left-sided left-sided back pain, back pain, unspecified unspecified back back location location Uncontrolle Uncontrolle Problem Active d type 2 d type 2 diabetes diabetes mellitus mellitus with with hyperglycem hyperglycem ia ia Irritable Irritable Problem Active bowel bowel syndrome syndrome with with constipatio constipatio n n Nausea Nausea Problem Active without without vomiting vomiting Dizziness Dizziness Problem Active Abdominal Abdominal Problem Active pain, pain, unspecified unspecified abdominal abdominal location location Nausea and Nausea and Problem Active vomiting, vomiting, intractabil intractabil ity of ity of vomiting vomiting not not specified, specified, unspecified unspecified vomiting vomiting type type Mixed Mixed Problem Active hyperlipide hyperlipide jt jt Screening Screening Diagnosis Active mammogram, mammogram, encounter encounter for for Allergies, Adverse Reactions, Alerts This patient has no known allergies or adverse reactions. Medications Ordered Filled Start Stop Current Ordering Indication Dosage Frequency Signature Comments Components Medication Medication Date Date Medication? Clinician (SIG) Name Name Simvastatin Simvastatin Yes Reema 1 table t 2-18 [facility] in the 00:00: evening 00 Crestor Crestor 2018- Yes Reema 1 tablet 8-09 [facility] 00:00: 00 Zofran Zofran Yes Reema 1 tablet 8-05 [facility]ender as needed 00:00: for 00 nausea/vom iting Topamax Topamax 2018- Yes Reema 1 tablet 8-05 Millender at bedtime 00:00: for 00 migraines Imitrex Imitrex Yes Reema as 8-05 Millender directed 00:00: 00 Wellbutrin Wellbutrin Yes Reema 1 tablet XL XL 4-20 Millender in the 00:00: morning 00 Ultram Ultram Yes Reema 1 tablet [place]ender as needed Vitamin D3 Vitamin D3 Yes Reema 1 tablet [place] Ambien Ambien Yes Reema 1 tablet Millender at bedtime Metoprolol Metoprolol Yes Reema 1 tablet Tartrate Tartrate Millender with food Trazodone Trazodone Yes Reema 1 tablet HCl HCl Millender at bedtime Protonix Protonix Yes Reema 1 tablet [place] HydrOXYzine HydrOXYzine Yes Reema 1 tablet HCl HCl Millender as needed Amitriptyli Amitriptyli Yes Reema 1 tablet ne HCl ne HCl Millender at bedtime Gabapentin Gabapentin Yes Reema 1 capsule Millender before bedtime Lipitor Lipitor Yes Reema 1 tablet Millender in evening Synthroid Synthroid Yes Reema 1 tablet Millender on an empty stomach in the morning Belsomra Belsomra Yes Reema 1 tablet Millender at bedtime as needed BusPIRone BusPIRone Yes Reema 1 tablet HCl HCl Millender prn anxiety Metformin Metformin Yes Reema 1 tablet HCl HCl [place] Lisinopril Lisinopril Yes Reema 1 tablet [place] Zolpidem Zolpidem Yes Reema 1 tablet Tartrate Tartrate Millender at bedtime Norvasc Norvasc Yes Reema 1 tablet [place] Linzess Linzess 2020- No Reema 1 capsule 0501 [facility]ender 00:00 :00 Encounters Start End Encounter Admission Attending Care Care Encounter Date/Time Date/Time Type Type Clinicians Facility Department ID 2019-05-10 2019-05-10 [id number] 16:45:00 16:45:00 [facility] 2018-10-29 2018-10-29 [id number] 15:28:00 15:28:00 [facility] 2018-10-25 2018-10-25 [facility] [id number] 10:00:00 10:00:00 [facility] 2018-05-24 2018-05-24 [facility] [id number] 14:15:00 14:15:00 [facility] 2018-05-14 2018-05-14 [id number] 13:00:00 13:00:00 [facility] 2017-07-17 2017-07-17 [facility] [id number] 14:52:00 14:52:00 [facility] 2017-07-10 2017-07-10 [facility] [id number] 10:00:00 10:00:00 [facility]
--- OUTSIDE RECORDS SUMMARY | 2019-07-16 12:22 | XMS REPORT ---
:1965 [facility] Care Team Providers Name Role Phone Rogejerod Reema Provider Role Unavailable Allergies, Adverse Reactions, Alerts Substance Reaction Event Type N.K.D.A. Info Not Available Non Drug Allergy Problems Problem Type Condition Code Onset Dates Condition Statu s Assessment Insomnia, unspecified type G47.00 A ctive Assessment Depression, unspecified depression F32.9 Active type [...] E03.9 Active Assessment Nausea without vomiting R11.0 Acti ve Problem Hyperlipidemia, unspecified E78.5 Active hyperlipidemia type Assessment Dizziness R42 Active Problem Dietary surveillance and counseling Z71.3 Active Problem Acute left-sided back pain, M54.9 Active unspecified back location Problem Hypertension, unspecified type I10 Active Problem Nausea without vomiting R11.0 Acti ve Problem Irritable bowel syndrome with K58.1 Active [...] Status Dosage System Date Date Metformin HCl [facility] 16981653976 500 MG Orally Active 1 tablet Once a day Metoprolol [facility] 55054486615 25 MG Orally Active 1 ta blet Tartrate Twice a day with food Ultram [facility] 17085855785 50 MG Orally Active 1 table t bid as needed Zolpidem Tartrate ND 06320763428 5 MG Orally Active 1 tablet Once a day at bedtime Linzess [facility] 27763815818 290 MCG Orally Feb 08, Active 1 cap timmy Once a day 2018 BusPIRone HCl [facility] 61273218757 10 MG Orally Active 1 tablet Twice a day prn anxiety Synthroid [facility] 88872185445 50 MCG Orally Active 1 ta blet Once a day on an empty stomach in the morning Amitriptyline HCl [facility] 07216250075 75 MG Orally Activ e 1 tablet Once a day as at bedtime needed for insomnia Wellbutrin XL [facility] 08604206980 150 MG Orally Jen Active 1 tablet Once a day 2017 in the morning Trazodone HCl [facility] 18241109322 100 MG Orally Active 1 tablet Once a day at bedtime Belsomra [facility] 78493080364 10 MG Orally Active 1 tabl et Once a day at bedtime as needed Ambien [facility] 57775216083 5 MG Orally Active 1 tablet Once a day at bedtime Vitamin D3 [facility] 09790556096 67410 UNIT Active 1 tabl et Orally once a week Lipitor [facility] 24720456415 40 MG Orally Active 1 table t Once a day in evening Lisinopril [facility] 15053368317 20 mg Orally Active 1 ta blet Twice daily HydrOXYzine HCl [facility] 53354408742 25 MG Orally Active 1 tablet every 6 hrs as needed Gabapentin [facility] 76661243729 300 MG Orally Active 1 c apsule Once a day before bedtime Norvasc [facility] 69896952292 5 MG Orally Active 1 tablet Once a day Protonix [facility] 32778437009 40 MG Orally Active 1 tabl et Once a day Adipex-P [facility] 17840788553 37.5 MG Orally Nancy Active 1 ta blet Once a day 22, in am 2019 Results No Known Results Summary Purpose eClinicalWorks Submission
--- OUTSIDE RECORDS SUMMARY | 2019-07-16 12:23 | XMS REPORT ---
:1965 Author Organization [employer] Care Team Providers Name Role Phone Reema Lehman Provider Role Unavailable Allergies No Known Allergies Problems Problem Type Condition Code Onset Dates Condition Statu s Problem Migraine G43.909 Active Problem Vitamin D [...] I10 Active Problem Migraine without status G43.909 Acti ve migrainosus, not intractable, unspecified migraine type Problem Uncontrolled type 2 diabetes E11.65 Active mellitus with hyperglycemia Problem Dizziness R42 Active Problem Irritable bowel syndrome with K58.1 Active constipation Problem Nausea without vomiting R11.0 Acti ve Problem Anxiety F41.9 Active Problem Hypertension I10 Active Problem Hypothyroidism, unspecified type E03.9 Active Problem Hyperlipidemia, unspecified E78.5 Active hyperlipidemia type Problem Thyroid condition E07.9 Active Problem Obesity (BMI 35.0-39.9 without E66.9 Active comorbidity) Problem Hyperlipidemia E78.5 Active Problem IBS (irritable bowel syndrome) K58.9 Active Problem Dietary surveillance and counseling Z71.3 Active Problem Insomnia, unspecified type G47.00 A ctive Problem Type II diabetes mellitus, well E11.9 Active controlled Medications Medication Code System Code Instructions Start Date End Date Status Dosage Crestor [facility] 55084742911 20 MG Orally Once Oct 29, Active 1 tablet a day 2018 Results No Known Results Summary Purpose eClinicalWorks Submission
--- OUTSIDE RECORDS SUMMARY | 2019-07-16 12:23 | XMS REPORT | Summary of Care ---
:1965 Author Organization [facility] - Health Address [address] [place] [address] Care Team Providers Name Role Phone Maribell Lehman Primary Care Provider Encounter Details Date Type Department Care Team Description 05/04/2019 Orders Only [facility] Doctor Unassigned, No [address] [facility] [place] [address] [address] [place] [address] Allergies No Known Allergiesdocumented as of this encounter (statuses as of 05/04/2019) Medications Medication Sig Dispensed Refills Start Date End Date Status zolpidem (AMBIEN) 5 mg Take 5 mg by 0 Active tablet mouth at bedtime as needed for Insomnia. levothyroxine Take 1 Tab by 90 Tab 1 10/06/2014 A ctive (SYNTHROID) 50 mcg mouth every tabletIndications: morning. Central hypothyroidism lisinopril Take 20 mg by 0 Activ e (PRINIVIL,ZESTRIL) 20 mg mouth daily. tablet metFORMIN [...] as of this encounter (statuses as of 05/04/2019) Active Problems Problem Noted Date Type 2 diabetes mellitus without complication 02/01/20 15 Essential hypertension 01/31/2015 Vitamin D deficiency 06/15/2014 Abnormal weight gain 06/06/2014 Headache 06/06/2014 Overview: ICD10 Diagnosis Term Manager Fraud Utility Fatigue 06/06/2014 documented as of this encounter (statuses as of 05/04/2019) Resolved Problems Problem Noted Date Resolved Date Prediabetes 06/06/2014 01/31/2015 documented as of this encounter (statuses as of 05/04/2019) Social History Tobacco Use Types Packs/Day Years [...] Treatment Date Type Specialty Care Team Description 05/04/2019 Supercharge Repair Supervisor Visit Phlebotomy Aubree Carr MD [address] [place] [phone] Arrived Pob, Adc Lab Main Health Maintenance Due Date Last Done Comments PNEUMOCOCCAL 0-64 YEARS COMBINED 1973 SERIES (1 of 1 - PPSV23) EYE EXAM 1977 FOOT EXAM 1985 DTaP,Tdap,and Td Vaccines (1 - 1986 Tdap) PAP SMEAR 05/26/2011 05/25/2008 COLONOSCOPY 2017 Zoster Recombinant Vaccine 2017 (SHINGRIX) (1 of 2) Breast Cancer Screening 07/24/2018 07/24/2017, 05/29/2016, (MAMMOGRAM) 05/18/2015, Additional history exists INFLUENZA VACCINE (#1) 2018 HgA1C 04/27/2019 10/25/2018, 05/15/2018, 07/11/2017, Additional history exists CREATININE (SERUM) 10/26/2019 10/25/2018, 05/15/2018, 07/11/2017, Additional history exists LDL-C 10/26/2019 10/25/2018, 05/15/2018, 07/11/2017, Additional history exists URINE MICROALBUMIN 10/26/2019 10/25/2018, 05/15/2018, 12/30/2016, Additional history exists documented as of this encounter Procedures Procedure Name Priority Date/Time Associated Diagnosis Comme nts CONSENT/REFUSAL FOR Routine 05/04/2019 7:54 AM DIAGNOSIS AND TREATMENT CSO ASSIGNMENT OF BENEFITS Routine 05/04/2019 7:54 AM CSO documented in this encounter Results Not on filedocumented in this encounter Insurance Payer Benefit Plan Subscriber ID Effective Dates Phone Address Type / Group BCBS OF [facility] [id number] 2014-Prese [phone] [address] PPO/POS [place] nt [address] [id number] [place] [address] documented as of this encounter
--- OUTSIDE RECORDS SUMMARY | 2019-07-16 12:23 | XMS REPORT ---
:1965 Author Organization eClinicalWorks Care Team Providers Name Role Phone Fallon Reema Provider Role Unavailable Allergies, Adverse Reactions, Alerts Substance Reaction Event Type N.K.D.A. Info Not Available Non Drug Allergy Problems Problem Type Condition Code Onset Dates Condition Statu s Assessment Hypothyroidism, unspecified type E03.9 Active Assessment [...] vomiting type Assessment Migraine without status G43.909 Acti ve migrainosus, not intractable, unspecified migraine type Assessment [...] back location Problem Migraine without status G43.909 Acti ve migrainosus, not intractable, unspecified migraine type Problem Hypertension, unspecified type I10 Active Problem Uncontrolled type 2 diabetes E11.65 Active mellitus with hyperglycemia Problem Dizziness R42 Active Problem Irritable bowel syndrome with K58.1 Active constipation Problem Nausea without vomiting R11.0 Acti ve Assessment Insomnia, unspecified type G47.00 A ctive Problem Anxiety F41.9 Active Assessment Obesity (BMI 35.0-39.9 without E66.9 Active comorbidity) Problem Hypertension I10 Active Problem Hypothyroidism, unspecified type E03.9 Active Assessment Depression, unspecified depression F32.9 Active type Problem Hyperlipidemia, unspecified E78.5 Active hyperlipidemia type Problem Thyroid condition E07.9 Active Problem Obesity (BMI 35.0-39.9 without E66.9 Active comorbidity) Problem Hyperlipidemia E78.5 Active Problem Insomnia, unspecified type G47.00 A ctive Medications Medication Code Code Instructions Start End Status Dosage System Date Date Zolpidem [facility] 15267181389 5 MG Orally Active 1 table t at Tartrate Once a day bedtime Vitamin D3 [facility] 00517998203 93127 UNIT Active 1 tabl et Orally once a week Topamax [facility] 08236212174 25 MG Orally Oct 25, Active 1 table t at Once a day 2018 bedtime for migraines Ambien [facility] 10432288762 5 MG Orally Active 1 tablet at Once a day bedtime BusPIRone HCl [facility] 41831970532 10 MG Orally Active 1 tablet Twice a day prn anxiety Lisinopril ND 85842826764 20 mg Orally Active 1 ta blet Twice daily Trazodone HCl [facility] 28626658855 100 MG Orally Active 1 tablet at Once a day bedtime Wellbutrin XL [facility] 84939438829 150 MG Orally June Active 1 tablet in Once a day 2017 the morning Synthroid [facility] 57873095422 50 MCG Orally Active 1 ta blet on Once a day an empty stomach in the morning Metoprolol ND 51741205486 25 MG Orally Active 1 ta blet Tartrate Twice a day with food Belsomra [facility] 29451032599 10 MG Orally Active 1 tabl et at Once a day bedtime as needed Metformin HCl [facility] 69035014685 500 MG Orally Active 1 tablet Once a day Lipitor ND 93453258050 40 MG Orally Active 1 table t in Once a day evening Gabapentin ND 40385643716 300 MG Orally Active 1 c apsule Once a day before bedtime Linzess [facility] 54678439974 290 MCG Orally July 21, Active 1 cap timmy Once a day 2019 Protonix ND 25324973899 40 MG Orally Active 1 tabl et Once a day Ultram [facility] 28720828861 50 MG Orally Active 1 table t as bid needed Amitriptyline [facility] 74180787840 75 MG Orally Active 1 tablet at HCl Once a day as bedtime needed for insomnia Norvasc [facility] 64743055708 5 MG Orally Active 1 tablet Once a day Zofran [facility] 87480005403 4 MG Orally Oct 25, Active 1 tablet as Every 4-6 hours 2018 needed f or nausea/vomi ting HydrOXYzine HCl [facility] 88484645400 25 MG Orally Active 1 tablet as every 6 hrs needed Imitrex [facility] 67592670758 50 MG Orally 1 Oct 25, Active as di rected tablet 2018 initially for migraine; july repeat q2h prn MYERS; max of 200 mg/day Results No Known Results Summary Purpose eClinicalWorks Submission
--- OUTSIDE RECORDS SUMMARY | 2019-07-16 12:24 | XMS REPORT | Summary of Care ---
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 [facility] Aubree Carr MD [address] [place] [address] Shortness of breath (Primary Dx); Professional Office Pob, Adc Lab Main Type 2 diabetes mellitus without complic ation, without long- term current use of insulin; Building Phlebotomy Elevated lipoprotein A level Lab Professional [facility] Building [address] [facility] , [address] [place] [address] Allergies No Known Allergiesdocumented as of this [...] 06/06/2014 Headache 06/06/2014 Overview: ICD10 Diagnosis 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 METABOLIC PANEL LAB Routine Shortness of breath 05/04/2019 8:17 AM (34913) Type 2 diabetes mellitus SHIFT LEADER without complication, without long-term current use of i nsulin Elevated lipoprotein A level GLYCOSYLATED HEMOGLOBIN LAB Routine Shortnes s of breath 05/04/2019 8:17 AM (A1C) Type 2 diabetes mellitus SHIFT LEADER without complication, without long-term current use of i nsulin Elevated lipoprotein A level LIPID PANEL (73508)(TOTAL LAB Routine Shortn ess of breath 05/04/2019 8:17 AM CHOLESTEROL, Type 2 diabetes mellitus SHIFT LEADER TRIGLYCERIDES, HDL) without complication, without long-term current use of i nsulin Elevated lipoprotein A level THYROID STIMULATING LAB Routine Shortness of breath 05/04/2019 8:17 AM HORMONE Type 2 diabetes mellitus SHIFT LEADER without complication, without long-term current use of i nsulin Elevated lipoprotein A level HIGH SENSITIVITY CRP LAB Routine Shortness o f breath 05/04/2019 8:17 AM Type 2 diabetes mellitus SHIFT LEADER without complication, without long-term current use of i nsulin Elevated lipoprotein A level CBC WITH DIFFERENTIAL LAB Routine Shortness of breath 05/04/2019 8:17 AM Type 2 diabetes mellitus SHIFT LEADER without complication, without long-term current use of i nsulin Elevated lipoprotein A level Name Type Priority Associated Diagnoses Order S chedule CBC WITH DIFF LAB Routine Shortness of parminder ath Expected: 05/04/2019, Type 2 diabetes mellitus Exp ires: 05/04/2020 without complication, without long-term current use of i nsulin Elevated lipoprotein A level COMP. METABOLIC PANEL LAB Routine Shortness of breath Expected: 05/04/2019, (77478) Type 2 diabetes mellitus Exp ires: 05/04/2020 without complication, without long-term current use of i nsulin Elevated lipoprotein A level GLYCOSYLATED HEMOGLOBIN LAB Routine Shortnes s of breath Expected: 05/04/2019, (A1C) Type 2 diabetes mellitus Exp ires: 05/04/2020 without complication, without long-term current use of i nsulin Elevated lipoprotein A level LIPID PANEL (50585)(TOTAL LAB Routine Shortn ess of breath Expected: 05/04/2019, CHOLESTEROL, Type 2 diabetes mellitus Exp ires: 05/04/2020 TRIGLYCERIDES, HDL) without complication, without long-term current use of i nsulin Elevated lipoprotein A level THYROID STIMULATING LAB Routine Shortness of breath Expected: 05/04/2019, HORMONE Type 2 diabetes mellitus Exp ires: 05/04/2020 without complication, without long-term current use of i nsulin Elevated lipoprotein A level HIGH SENSITIVITY CRP LAB Routine Shortness o f breath Expected: 05/04/2019, Type 2 diabetes mellitus Exp ires: 05/04/2020 without complication, without long-term current use of i nsulin Elevated lipoprotein A level Health Maintenance Due Date Last Done Comments PNEUMOCOCCAL 0-64 YEARS COMBINED 1973 SERIES (1 of 1 - PPSV23) EYE EXAM 1977 DTaP,Tdap,and Td Vaccines (1 - 1978 Tdap) FOOT EXAM 1985 PAP SMEAR 05/26/2011 05/25/2008 COLONOSCOPY 2017 Zoster [...] history exists documented as of this encounter Results Not on filedocumented in this encounter Visit Diagnoses Diagnosis Shortness of breath - Primary Type 2 diabetes mellitus without complic ation, without long-term current use of insulin Elevated lipoprotein A level Other disorders of lipoid metabolism documented in this encounter Insurance Payer Benefit Plan Subscriber ID Effective Dates Phone Address Type / Group [facility] [id number] 2014-Yvette [phone] [address] PPO/POS [place] nt 7 [id number] [place] [address] documented as of this encounter
--- OUTSIDE RECORDS SUMMARY | 2019-07-16 12:24 | XMS REPORT | Summary of Care ---
:1965 Author Organization [facility] Address [address] [place] [address] Care Team Providers Name Role Phone Maribell Lehman Primary Care Provider Reason for Referral Radiology Services (Routine) Status Reason Specialty Diagnoses / Referred By Referred To Procedures Contact Contact Closed Diagnostic Diagnoses Breast cancer screening by mammogram Breast cancer screening by mammogram Reema Lehman Radiology Procedures BI SCREENING TOMOSYNTHESIS BILATERAL CHG SCREENING DIGITAL BREAST TOMOSYNTHESIS BI CHG SCREENING MAMMOGRAPHY BI 2-VIEW BREAST INC CAD BI SCREENING TOMOSYNTHESIS BILATERAL L [address] [place] [address] Reason for Visit Radiology Services (Routine) Status Reason Specialty Diagnoses / Referred By Referred To Procedures Contact Contact Closed Diagnostic Diagnoses Breast cancer screening by mammogram Breast cancer screening by mammogram Reema Lehman Radiology Procedures BI SCREENING TOMOSYNTHESIS BILATERAL CHG SCREENING DIGITAL BREAST TOMOSYNTHESIS BI CHG SCREENING MAMMOGRAPHY BI 2-VIEW BREAST INC CAD BI SCREENING TOMOSYNTHESIS BILATERAL L [address] [place] [address] Encounter Details Date Type Department Care Team Description 05/27/2019 Hospital Encounter [facility] Radiolog y Arrived [facility] [address] [place] [address] [place] [phone] Allergies No Known Allergiesdocumented as of this encounter (statuses as of 05/28/2019) Medications Medication Sig Dispensed Refills Start Date [...] as of this encounter (statuses as of 05/28/2019) Active Problems Problem Noted Date Type 2 diabetes mellitus without complication 02/01/20 15 Essential hypertension 01/31/2015 Vitamin D deficiency 06/15/2014 Abnormal weight gain 06/06/2014 Headache 06/06/2014 Overview: ICD10 Diagnosis 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 06/06/2014 documented as of this encounter (statuses as of 05/28/2019) Resolved Problems Problem Noted Date Resolved Date Prediabetes 06/06/2014 01/31/2015 documented as of this encounter (statuses as of 05/28/2019) Social History Tobacco Use Types Packs/Day Years [...] Name Type Priority Associated Diagnoses Date/Ti me BI SCREENING IMAGING Routine Breast cancer 05/27/2019 9: 51 AM TOMOSYNTHESIS BILATERAL screening 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 Name Type Priority Associated Diagnoses Order S chedule BI SCREENING IMAGING Routine Breast cancer 1 Occurrences starting TOMOSYNTHESIS BILATERAL screening by 08/2019 until mammogram 05/27/2019 Health Maintenance Due Date Last Done Comments PNEUMOCOCCAL 0-64 YEARS COMBINED 1973 SERIES (1 of 1 - PPSV23) EYE EXAM 1977 DTaP,Tdap,and Td Vaccines (1 - 1978 Tdap) FOOT EXAM 1985 PAP SMEAR 05/26/2011 05/25/2008 COLONOSCOPY 2017 Zoster Recombinant Vaccine 2017 (SHINGRIX) (1 of 2) Breast Cancer Screening 07/24/2018 07/24/2017, 05/29/2016, (MAMMOGRAM) 05/18/2015, Additional history exists INFLUENZA VACCINE (#1) 2018 URINE MICROALBUMIN 10/26/2019 10/25/2018, 05/15/2018, 12/30/2016, Additional history exists HgA1C 11/02/2019 05/04/2019, 10/25/2018, 05/15/2018, Additional history exists CREATININE (SERUM) 05/04/2020 05/04/2019, 10/25/2018, 05/15/2018, Additional history exists LDL-C 05/04/2020 05/04/2019, 10/25/2018, 05/15/2018, Additional history exists documented as of this encounter Results Not on filedocumented in this encounter Visit Diagnoses Diagnosis Breast cancer screening by mammogram documented in this encounter Insurance Payer Benefit Plan Subscriber ID Effective Dates Phone Address Type / Group [employer] [place] [id number] 2014-Yvette [phone] [address]PO/[place] nt [address] [id number] [place] [address] documented as of this encounter
--- OUTSIDE RECORDS SUMMARY | 2019-07-16 12:24 | XMS REPORT ---
:1965 [facility] Providers Name Role Phone Reema Lehman Provider Role Unavailable Allergies, Adverse Reactions, Alerts Substance Reaction Event Type N.K.D.A. Info Not Available Non Drug Allergy Problems Problem Type Condition Code Onset Dates Condition Statu s Assessment Hypothyroidism, unspecified type E03.9 Active Assessment Migraine without status G43.909 Acti ve migrainosus, not intractable, unspecified migraine type Assessment Mixed hyperlipidemia E78.2 Active Assessment Type II diabetes mellitus, well E11.9 Active controlled Assessment Screening mammogram, encounter for Z12.31 Active Assessment Hypertension, unspecified type I10 Active Problem Dietary surveillance and counseling Z71.3 Active Problem Type II diabetes mellitus, well E11.9 Active controlled Problem Migraine G43.909 Active Problem Depression, unspecified depression F32.9 Active type Problem Edema R60.9 Active Problem Dizziness R42 Active Problem Vitamin D deficiency E55.9 Active Problem Migraine without status G43.909 Acti ve migrainosus, not intractable, unspecified migraine type Problem Nausea and vomiting, intractability R11.2 Active of vomiting not specified, unspecified vomiting type Problem Insomnia, unspecified type G47.00 A ctive Problem Hyperlipidemia, unspecified E78.5 Active hyperlipidemia type Problem Mixed hyperlipidemia E78.2 Active Problem Hypothyroidism, unspecified type E03.9 Active Problem Uncontrolled type 2 diabetes E11.65 Active mellitus with hyperglycemia Problem Irritable bowel syndrome with K58.1 Active constipation Problem Abdominal pain, unspecified R10.9 Active abdominal location Problem Nausea without vomiting R11.0 Acti ve Problem Anxiety F41.9 Active Problem Hypertension I10 Active Problem Hypertension, unspecified type I10 Active Problem Acute left-sided back pain, M54.9 Active unspecified back location Problem Obesity (BMI 35.0-39.9 without E66.9 Active comorbidity) Problem IBS (irritable bowel syndrome) K58.9 Active Problem Hyperlipidemia E78.5 Active Problem Thyroid condition E07.9 Active Medications Medication Code Code Instructions Start End Status Dosage System Date Date Wellbutrin XL [facility] 88482947273 150 MG Orally June Active 1 tablet in Once a day 2017 the morning Ultram [facility] 48478390073 50 MG Orally bid Active 1 t ablet as needed Vitamin D3 [facility] 73911313388 13648 UNIT Active 1 tabl et Orally once a week Ambien [facility] 21727382414 5 MG Orally Once Active 1 t ablet at a day bedtime Metoprolol ND 76804507517 25 MG Orally Active 1 ta blet Tartrate Twice a day with food Trazodone HCl [facility] 96217492364 100 MG Orally Active 1 tablet at Once a day bedtime Crestor ND 27851540427 20 MG Orally Oct 29, Active 1 table t Once a day 2018 Zofran ND 96739812751 4 MG Orally Oct 25, Active 1 tablet as Every 4-6 hours 2018 needed f or nausea/vomi ting Protonix [facility] 15205241878 40 MG Orally Active 1 tabl et Once a day HydrOXYzine HCl ND 50377897466 25 MG Orally Active 1 tablet as every 6 hrs needed Amitriptyline [facility] 30926888000 75 MG Orally Active 1 tablet at HCl Once a day as bedtime needed for insomnia Gabapentin ND 70413536210 300 MG Orally Active 1 c apsule Once a day before bedtime Lipitor ND 62322492882 40 MG Orally Active 1 table t in Once a day evening Synthroid ND 45296365981 50 MCG Orally Active 1 ta blet on Once a day an empty stomach in the morning Simvastatin ND 92568117503 20 MG Orally May 10, Active 1 t ablet in Once a day for 2019 the eveni ng high cholesterol/high triglycerides Topamax [facility] 79036099126 25 MG Orally Oct 25, Active 1 table t at Once a day 2019 bedtime for migraines Belsomra ND 52423604549 10 MG Orally Active 1 tabl et at Once a day bedtime as needed BusPIRone HCl [facility] 40956789455 10 MG Orally Active 1 tablet Twice a day prn anxiety Imitrex ND 41775950844 50 MG Orally Oct 25, Active as di rected tablet initially 2019 for migraine; may repeat q2h prn MYERS; max of 200 mg/day Metformin HCl [facility] 76286480304 500 MG Orally Active 1 tablet Once a day Lisinopril [facility] 86834317533 20 MG Orally Active 1 ta blet Twice daily Zolpidem [facility] 61008507478 5 MG Orally Once Active 1 tablet at Tartrate a day bedtime Norvasc [facility] 17853572265 10 MG Orally Active 1 table t Once a day Linzess [facility] 98269238812 290 MCG Orally May Active 1 cap timmy Once a day 2019 Results No Known Results Summary Purpose eClinicalWorks Submission
--- OUTSIDE RECORDS SUMMARY | 2019-07-16 12:24 | XMS REPORT | Summary of Care ---
:1965 Author Organization [facility] - Health Address [address] [place] [address] Care Team Providers Name Role Phone Maribell Lehman Primary Care Provider Encounter Details Date Type Department Care Team Description 05/27/2019 Orders Only [facility] Doctor Unassigned, No [address] [facility] [place] [place] [address] [address] [place] [address] Allergies No Known Allergiesdocumented as of this encounter (statuses as of 05/27/2019) Medications Medication Sig Dispensed Refills Start Date [...] as of this encounter (statuses as of 05/27/2019) Active Problems Problem Noted Date Type 2 diabetes mellitus without complication 02/01/20 15 Essential hypertension 01/31/2015 Vitamin D deficiency 06/15/2014 Abnormal weight gain 06/06/2014 Headache 06/06/2014 Overview: ICD10 Diagnosis 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 06/06/2014 documented as of this encounter (statuses as of 05/27/2019) Resolved Problems Problem Noted Date Resolved Date Prediabetes 06/06/2014 01/31/2015 documented as of this encounter (statuses as of 05/27/2019) Social History Tobacco Use Types Packs/Day Years [...] filedocumented in this encounter Plan of Treatment Health Maintenance Due Date Last Done Comments [...] Name Priority Date/Time Associated Diagnosis Comme nts ASSIGNMENT OF BENEFITS Routine 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
[2019-07-16] MEDS ORDERED: ACETAMINOPHEN 325 MG TABLET ONE (13:01)
--- NOTE | 2019-07-16 14:01 | ER ---
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 Left arm and ll1 left knee area bruising and pain since. Slight pain to abdomen area also. No LOC. Coronavirus screen: Proceed with normal triage. Patient denies a cough. Patient denies shortness of breath or difficulty breathing. Patient denies measured and/or subjective temperature greater than 100.4F prior to today's visit. Patient denies travel on a cruise ship or to a country the [facility] currently lists as an affected area. Patient denies contact with known and/or suspected case of COVID-19. Ebola Screen: Patient denies travel to an Ebola-affected area in the 21 days before illness onset. Initial Sepsis Screen: Does the patient meet any 2 criteria? No. Patient's initial sepsis screen is negative. Does the patient have a suspected source of infection? No. Patient's initial sepsis screen is negative. Risk Assessment: Do you want to hurt yourself or someone else? Patient reports no desire to harm self or others. Onset of symptoms was July 15, 2019. 12:34 Method Of Arrival: Ambulatory ll1 12:34 Acuity: MICHELLE 4 ll1 Historical: - Allergies: 12:36 No Known Drug Allergies; ll1 - PMHx: 12:36 Diabetes - NIDDM; High Cholesterol; Hypertension; Gastric Reflux; ll1 - Immunization history:: Adult Immunizations unknown. - Social history:: Patient uses alcohol, only on a social basis. Patient/guardian denies using street drugs, tobacco products, Smoking status: unknown. Screenin:13 Abuse screen: Denies threats or abuse. Denies injuries from another. Nutritional ph screening: No deficits noted. Tuberculosis screening: No symptoms or risk factors identified. Fall Risk None identified. Assessment: 13:08 General: Appears in no apparent distress. comfortable, well groomed, Behavior is calm, ph cooperative, appropriate for age. Pain: Complains of pain in left arm and left leg. Neuro: Level of Consciousness is awake, alert, obeys commands, Oriented to person, place, time, situation. Cardiovascular: Capillary refill < 3 seconds in bilateral fingers Patient's skin is warm and dry. Respiratory: Airway is patent Respiratory effort is even, unlabored. Derm: Skin is healthy with good turgor, Skin is pink, warm \T\ dry. Bruising that is on palmar aspect of left forearm and left knee. Vital Signs: 12:34 BP 146 / 84; Pulse 81; Resp 17; Temp 98.3; Pulse Ox 99% ; Pain 9/10; ll1 14:35 BP 132 / 78; Pulse 71; Resp 18; Temp 98.0; Pulse Ox 99% on R/A; ph ED Course: 12:22 Patient arrived in ED. mr 12:22 Reema Lehman MD is Private Physician. mr 12:23 Noel Sahu FNP-C [facility]. la1 12:23 Marcos Cody MD is Attending Physician. la1 12:34 Ronda Kohler, DOUGLAS is Primary Nurse. ph 12:35 Triage completed. ll1 12:36 Arm band placed on Patient placed in an exam room, on a stretcher. ll1 13:13 Patient has correct armband on for positive identification. Placed in gown. Bed in low ph position. Call light in reach. Side rails up X 1. Pulse ox on. NIBP on. Door closed. Noise minimized. Warm blanket given. 13:45 Forearm Left XRAY In Process Unspecified. EDMS 13:46 Knee Left 3 View XRAY In Process Unspecified. EDMS 14:34 No provider procedures requiring assistance completed. Patient did not have IV access ph during this emergency room visit. [place] wrap to left wrist and left knee. Administered Medications: 13:04 Drug: Tylenol 650 mg Route: PO; ph 14:32 Follow up: Response: No adverse reaction ph Outcome: 14:01 Discharge ordered by . la1 14:34 Discharged to home ambulatory. ph 14:34 Condition: good 14:34 Discharge instructions given to patient, Instructed on discharge instructions, follow up and referral plans. medication usage, Demonstrated understanding of instructions, follow-up care, medications, Prescriptions given X 1. 14:35 Patient left the ED. ph Signatures: Dispatcher [employer] MARGARET Karrie Plunkett AdelinaNoel, GARAGEMAN-C GARAGEMAN-Cla1 Ronda Kohler RN RN ph Luis Alfredo Mcfarland RN RN ll1
--- NOTE | 2019-07-16 14:02 | EDPHYS ---
Physician Documentation [facility] Name: Sonya Duff Age: 54 yrs Sex: Female : 1965 Arrival Date: 07/16/2019 Time: 12:22 Bed 6 Private MD: Reema Lehman ED Physician Marcos Cody HPI: 07/15 13:10 This 54 yrs old Female presents to ER via Ambulatory with complaints of Fall la1 Injury. 13:10 Details of fall: The patient fell from an upright position, while standing. Onset: The la1 symptoms/episode began/occurred yesterday. Associated injuries: The patient sustained abdomen, left forearm, left knee. Severity of symptoms: At their worst the symptoms were mild. The patient has not experienced similar symptoms in the past. 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 Historical: - Allergies: 12:36 No Known Drug Allergies; ll1 - PMHx: 12:36 Diabetes - NIDDM; High Cholesterol; Hypertension; Gastric Reflux; ll1 - Immunization history:: Adult Immunizations unknown. - Social history:: Patient uses alcohol, only on a social basis. Patient/guardian denies using street drugs, tobacco products, Smoking status: unknown. ROS: 13:11 Constitutional: Negative for fever, chills, and weight loss, Eyes: Negative for injury, la1 pain, redness, and discharge, ENT: Negative for injury, pain, and discharge, Neck: Negative for injury, pain, and swelling, Cardiovascular: Negative for chest pain, palpitations, and edema, Respiratory: Negative for shortness of breath, cough, wheezing, and pleuritic chest pain. 13:11 Back: Negative for injury and pain, : Negative for injury, bleeding, discharge, and swelling. 13:11 Neuro: Negative for headache, weakness, numbness, tingling, and seizure. 13:11 Abdomen/GI: Positive for very mild abdominal pain. 13:11 MS/extremity: Positive for pain, swelling, of the left forearm and left knee. Exam: 13:13 Constitutional: This is a well developed, well nourished patient who is awake, alert, la1 and in no acute distress. Head/Face: Normocephalic, atraumatic. Eyes: Pupils equal round and reactive to light, extra-ocular motions intact ENT: Mucous membranes moist. Cardiovascular: Regular rate and rhythm with a normal S1 and S2. 13:13 Respiratory: Lungs have equal breath sounds bilaterally, clear to auscultation 13:13 Abdomen/GI: Inspection: obese Bowel sounds: normal, in all quadrants, Palpation: soft, in all quadrants, mild abdominal tenderness, in the epigastric area. 13:13 Musculoskeletal/extremity: Extremities: noted in the lateral aspect of distal left forearm and proximal aspect of left knee: ecchymosis, swelling, ROM: intact in all extremities, Pulses: noted to be 3+ in the right radial artery and left radial artery, Sensation intact. Vital Signs: 12:34 BP 146 / 84; Pulse 81; Resp 17; Temp 98.3; Pulse Ox 99% ; Pain 9/10; ll1 14:35 BP 132 / 78; Pulse 71; Resp 18; Temp 98.0; Pulse Ox 99% on R/A; ph MDM: 12:33 [facility] 13:59 Data reviewed: vital signs, nurses notes, radiologic studies, and as a result, I will la1 discharge patient. Data interpreted: Pulse oximetry: on room air is 99 %. Interpretation: normal. Test interpretation: by ED physician or midlevel provider: plain radiologic studies. Counseling: I had a detailed discussion with the patient and/or guardian regarding: the historical points, exam findings, and any diagnostic results supporting the discharge/admit diagnosis, radiology results, the need for outpatient follow up, a orthopedic surgeon, to return to the emergency department if symptoms worsen or persist or if there are any questions or concerns that arise at home. Special discussion: Based on the patient's Hx, exam, and Dx evaluation, there is no indication for emergent surgery or inpatient Tx. It is understood by the patient/guardian that if the Sx's persist or worsen they need to return immediately for re-evaluation. ED course: no obvious fractures noted to left forearm or left knee. Pt not having abd pain at this time with very mild tenderness only. Pt given strict return precautions and instructed to take tylenol for pain. . 07/15 12:51 Order name: Forearm Left XRAY la1 07/15 13:02 Order name: Knee Left 3 View XRAY la1 07/15 13:58 Order name: Washington Wrap: left knee and forearm please; Complete Time: 14:32 la1 Administered Medications: 13:04 Drug: Tylenol 650 mg Route: PO; ph 14:32 Follow up: Response: No adverse reaction ph Disposition: 07/16/19 14:01 Discharged to Home. Impression: Fall on same level from slipping, tripping and stumbling, Pain in left knee, Pain in left forearm. - Condition is Stable. - Discharge Instructions: Hematoma, Musculoskeletal Pain. - Prescriptions for Cyclobenzaprine 10 mg Oral Tablet - take 1 tablet by ORAL route every 8 hours As needed; 20 tablet. - Medication Reconciliation Form, Thank You Letter form. - Follow up: Private Physician; When: 2 - 3 days; Reason: Recheck today's complaints, Re-evaluation by your physician. Follow up: Emergency Department; When: As needed; Reason: Worsening of condition. - Problem is new. - Symptoms have improved. Addendum: 07/18/2019 09:56 Co-signature as Attending Physician, Marcos Cody MD I agree with the assessment and c vieyra plan of care. Signatures: Dispatcher [employer] EDMT Marcos Cody MD MD cha Attema, Lee, MARKET SALES MANAGER-C MARKET SALES MANAGER-Cla1 Ronda Kohler, RN RN Luis Alfredo Lion RN RN ll1 Corrections: (The following items were deleted from the chart) 07/15 14:35 14:01 07/16/2019 14:01 Discharged to Home. Impression: Fall on same level from ph slipping, tripping and stumbling; Pain in left knee; Pain in left forearm. Condition is Stable. Forms are Medication Reconciliation Form, Thank You Letter, Antibiotic Education, Prescription Opioid Use. Follow up: Private Physician; When: 2 - 3 days; Reason: Recheck today's complaints, Re-evaluation by your physician. Follow up: Emergency Department; When: As needed; Reason: Worsening of condition. Problem is new. Symptoms have improved. la1
--- NOTE | 2019-07-16 14:07 | RAD REPORT ---
EXAM DESCRIPTION: RAD - Forearm Left - 07/16/2019 1:45 pm CLINICAL HISTORY: Left forearm pain status post injury FINDINGS: No fracture is seen
--- NOTE | 2019-07-16 14:20 | RAD REPORT ---
EXAM DESCRIPTION: RAD - Knee Left 3 View - 07/16/2019 1:46 pm CLINICAL HISTORY: Left knee pain status post injury FINDINGS: A small bony/calcific density appears to be present within the intercondylar notch presuma calderon loose body. Age is indeterminate. There does not appear to be a significant joint effusion so thi s probably is not acute. No dislocation. If patient continues have symptoms to suggest an occult fracture, ligamentous or meniscal injury MRI would be recommended
[2019-07-16 14:42] VITALS: O2SAT 99
[2019-07-16 14:43] VITALS: BP 132/78; TEMP 98
== END 2019-07-16 14:35 | disposition home or self-care (01) ==
LOC: ER 12:20
DX: M79.632 Pain in left forearm (principal); W01.198A Fall on same level from slipping, tripping and stumbling with subsequent striking against other object, initial encounter; Y93.9 Activity, unspecified; Y92.9 Unspecified place or not applicable; I10 Essential (primary) hypertension
CPT/HCPCS: 99284

== ENCOUNTER 2021-01-16 08:44 | Day surgery (SDC) | payer BC ==
[2021-01-14 09:36] LABS: Absolute Lymphocytes (CBC) 1.5 K/uL (0.7-4.9); Basophils % 0.5 % (0-1.3); Hematocrit 42.6 % (36.0-45.0); Lymphocytes % 24.1 % (15.3-44.8); MPV 7.4 fL (7.6-11.3); RBC Red Blood Cell Count 4.64 M/uL (3.86-4.86)
[2021-01-14 09:40] LABS: Protime INR 1.03
--- NOTE | 2021-01-14 10:29 | RAD REPORT ---
EXAM DESCRIPTION: RAD - Chest Pa And Lat (2 Views) - 01/14/2021 9:34 am CLINICAL HISTORY: Pre Op pending Knee arthroscopy Chest pain. COMPARISON: Chest Single View dated 07/09/2017; Chest Single View dated 05/11/2017; Chest Pa And Lat ( 2 Views) dated 02/28/2016; CHEST SINGLE VIEW dated 07/26/2013 FINDINGS: The lungs are clear. The heart is normal in size. No displaced fractures. IMPRESSION: No acute or concerning finding suspected.
[2021-01-14 10:46] LABS: SARS-COV-2 RT PCR NEGATIVE (NEGATIVE)
[2021-01-14 13:43] LABS: Potassium 4.3 mmol/L (3.5-5.1)
[2021-01-16] MEDS ORDERED: MIDAZOLAM HCL 2 MG/2 ML INJ ONE (09:23)
[2021-01-16] MEDS ORDERED: FENTANYL CITR 100 MCG/2 ML ONE ×2 (09:23→12:20)
[2021-01-16] MEDS ORDERED: propofoL 200 MG/20 ML VIAL IV ONE ×2 (09:23→11:34)
[2021-01-16] MEDS ORDERED: dexAMETHasone 10 MG/ML VIAL ONE (09:23)
[2021-01-16] MEDS ORDERED: LIDOCAINE 2% MPF 5 ML VIAL ONE (09:24)
[2021-01-16] MEDS ORDERED: KETOROLAC 30 MG/ML INJ ONE (09:24)
[2021-01-16] MEDS ORDERED: ONDANSETRON 4 MG/2 ML VIAL ONE (09:25)
[2021-01-16] MEDS ORDERED: CEFAZOLIN/NS 1gm 1 GM/50 ML BAG ONE (09:28)
[2021-01-16] MEDS ORDERED: Ringers Lactate 1,000 ML IV ONE (09:28)
[2021-01-16] MEDS ORDERED: CELECOXIB 100 MG CAPSULE ONE (09:52)
[2021-01-16] MEDS ORDERED: ACETAMINOPHEN 500 MG TAB ONE (09:52)
[2021-01-16] MEDS ORDERED: BUPIVACAINE 0.25% PF 30 ML VIAL ONE (10:37)
[2021-01-16] MEDS ORDERED: GLYCOPYRROLATE 0.2 MG/ML SYR ONE (10:52)
--- NOTE | 2021-01-16 11:40 | P.BOP ---
Preoperative diagnosis: left knee medial meniscus tear Postoperative diagnosis: same,left knee lateral meniscus tear, chondromalacia medial femoral condyle Primary procedure: left knee arthroscopic partial medial and lateral meniscectomies Rack Cleaner: NONE,NONE Estimated blood loss: 5 cc Specimen: none Findings: see dictation Anesthesia: General Complications: None Implants: none Fluids & blood products: per anesthesia record; TT: 28 mins @ 300 mmHg Transferred to: Recovery Room Condition: Good
[2021-01-16] MEDS ORDERED: HYDROCODONE/APAP 5/325 MG TAB ONE (13:00)
[2021-01-16 13:18] VITALS: BP 145/74; TEMP 97.4; O2SAT 95
== END 2021-01-16 13:50 | disposition home or self-care (01) ==
LOC: PRE 08:44
PROVIDERS: ATTEND Orthopaedic Surgery Sports Medicine
PROC: 0SBD4ZZ Excision of Left Knee Joint, Percutaneous Endoscopic Approach (ICD-10-PCS; 2021-01-16)
PROC: 0SBD4ZZ Excision of Left Knee Joint, Percutaneous Endoscopic Approach (ICD-10-PCS; principal; 2021-01-16 10:45)
DX: S83.242A Other tear of medial meniscus, current injury, left knee, initial encounter (principal); M25.562 Pain in left knee; M25.561 Pain in right knee; M17.11 Unilateral primary osteoarthritis, right knee; Z20.822 Contact with and (suspected) exposure to COVID-19
CPT/HCPCS: 93005; 85025; 80048; 36415; 85610; 85730; 0241U; 71046; 29880; J2704 ×2; J2250; J3010 ×2; J1100; J0690; J7120; J2405

== ENCOUNTER 2021-04-06 10:19 | Emergency (ER) | payer SELFPAY ==
--- OUTSIDE RECORDS SUMMARY | 2021-04-06 10:23 | XMS REPORT | Clinical Summary ---
:1965 Author Organization [facility] MD Nava [facility] Address [address] [place] [address] Care Team Providers Name Role Phone Justin Smith MD Primary Care Provider Meghann Daigle MD Unavailable [phone] Chaparro Arroyo MD Unavailable Allergies No known active allergies Medications Medication Sig Dispensed Refills Start End Date Status Date levothyroxine Take 50 mcg 0 Acti ve (SYNTHROID, by mouth 5 LEVOTHROID) 50 mcg daily. tablet pantoprazole Take 20 mg by 0 Act jie (PROTONIX) 40 mg EC mouth daily tablet with breakfast. metoprolol tartrate Take 25 mg by 0 Active (LOPRESSOR) 25 mg mouth twice 0 tablet daily. lisinopril Take 10 mg by 0 Activ e (PRINIVIL,ZESTRIL) mouth every 10 mg tablet morning. amLODIPine (NORVASC) Take 5 mg by 0 Active 5 mg tablet mouth daily. 0 atorvastatin Take 20 mg by 0 Act jie (LIPITOR) 20 mg mouth. tablet prochlorperazine Take 1 tablet 30 tablet 3 Active (COMPAZINE) 10 mg (10 mg) by 0 tabletIndications: mouth every 6 Infiltrating duct (six) hours carcinoma of upper as needed for outer quadrant of nausea or left female breast vomiting. lidocaine-prilocaine Apply to 30 g 3 Active (EMLA) 2.5-2.5% Port-A-Cath 0 creamIndications: area 30 to 45 Infiltrating duct minutes prior carcinoma of upper to port outer quadrant of access as left female breast directed (topical anesthetic). triamcinolone Apply 30 g 0 Active (KENALOG) ointment topically to 0 0.1%Indications: affected Infiltrating duct area(s) twice carcinoma of upper daily. outer quadrant of left female breast, Dermatitis, not otherwise specified traMADol (ULTRAM) 50 Take 1 tablet 30 tablet 0 Active mg (50 mg) by 1 tabletIndications: mouth every 6 Infiltrating duct (six) hours carcinoma of upper as needed for outer quadrant of moderate left female breast pain. Linzess 290 mcg cap Take 1 0 Active capsule by 1 mouth as needed. citalopram (CeleXA) Take 1 tablet 30 tablet 3 Active 20 mg (20 mg) by 1 tabletIndications: mouth daily. Infiltrating duct carcinoma, 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; Left>, Reactive depression (situational) letrozole (FEMARA) TAKE 1 90 tablet 3 A ctive 2.5 mg TABLET(2.5 1 tabletIndications: MG) BY MOUTH Infiltrating duct DAILY carcinoma, 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; Left> ergocalciferol Take 1 12 capsule 0 05/24/19 Acti ve (Vitamin D2) 50,000 capsule 1 22 units (50,000 capsuleIndications: Units) by Infiltrating duct mouth every 7 carcinoma, NOS of days for 12 upper-outer quadrant doses. Take of breast <Female; 1 capsule PO Left>, Vitamin D once a week. deficiency, not After 12 otherwise specified weeks, then take Vit D3 5000 IU (OTC) once daily pregabalin (LYRICA) TAKE 1 90 capsule 0 Active 75 mg CAPSULE BY 2 capsuleIndications: MOUTH THREE Infiltrating duct TIMES DAILY carcinoma, 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; Left>, Drug-induced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 zolpidem (AMBIEN) 5 Take 5 mg by 0 0 Discontinued mg tablet mouth nightly 3 21 (Not A pplicable) as needed. busPIRone (BUSPAR) Take 10 mg by 0 05/26/2 0 Discontinued 10 mg tablet mouth daily. 21 (Not Applicable) ondansetron (ZOFRAN) Take 1 tablet 30 tablet 3 08/15 Discontinued 8 mg (8 mg) by 0 21 (Therapy tabletIndications: mouth every 8 completed) Infiltrating duct (eight) hours carcinoma of upper as needed for outer quadrant of nausea or left female breast vomiting. traMADol (ULTRAM) 50 Take 1 tablet 20 tablet 1 05/01 Discontinued mg (50 mg) by 0 21 (Reorder) tabletIndications: mouth every 6 Infiltrating duct (six) hours carcinoma of upper as needed for outer quadrant of moderate left female breast pain. gabapentin Take 1 tablet 90 tablet 3 05/01/19 Disco ntinued (NEURONTIN) 800 mg (800 mg) by 1 21 tabletIndications: mouth 3 Drug-induced (three) times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 a day. amoxicillin-clavulan Take 1 tablet 14 tablet 0 04/23 ate (AUGMENTIN) 875 (875 mg) by 1 21 mg-125 mg per mouth twice tabletIndications: daily for 7 Paronychia days. gabapentin Take 3 90 capsule 1 07/21/19 Disconti nued (NEURONTIN) 300 mg capsules (900 1 21 capsuleIndications: mg) by mouth Drug-induced 3 (three)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 times a day. traMADol (ULTRAM) 50 Take 1 tablet 20 tablet 0 05/18 Discontinued mg (50 mg) by 1 21 (Reorder) tabletIndications: mouth every 6 Infiltrating duct (six) hours carcinoma of upper as needed for outer quadrant of moderate left female breast pain. letrozole (FEMARA) Take 1 tablet 90 tablet 3 0 2.5 mg (2.5 mg) by 1 21 tabletIndications: mouth daily Infiltrating duct for 90 days. carcinoma of upper outer quadrant of left female breast pregabalin (Lyrica) Take 1 90 capsule 0 06/20/19 Discontinued 50 mg capsule (50 1 21 capsuleIndications: mg) by mouth Infiltrating duct 3 (three) carcinoma of upper times a day. outer quadrant of left female breast, Drug-induced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 pregabalin (LYRICA) TAKE 1 90 capsule 0 07/21/19 Discontinued 50 mg CAPSULE(50 1 21 (Reorder) capsuleIndications: MG) BY MOUTH Infiltrating duct THREE TIMES carcinoma of upper DAILY outer quadrant of left female breast, Drug-induced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 pregabalin (LYRICA) TAKE 1 90 capsule 0 08/07/19 Discontinued 50 mg CAPSULE(50 1 21 (Reorder) capsuleIndications: MG) BY MOUTH Infiltrating duct THREE TIMES carcinoma of upper DAILY outer quadrant of left female breast, Drug-induced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 pregabalin (LYRICA) TAKE 1 90 capsule 1 10/18/19 Discontinued 75 mg CAPSULE(50 1 21 capsuleIndications: MG) BY MOUTH Infiltrating duct THREE TIMES carcinoma of upper DAILY outer quadrant of left female breast, Drug-induced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 citalopram (CeleXA) Take 1 tablet 30 tablet 1 Discontinued 20 mg (20 mg) by 1 21 tabletIndications: mouth daily. 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, Reactive depression (situational) pregabalin (LYRICA) TAKE 1 90 capsule 0 11/22/19 Discontinued 75 mg CAPSULE BY 1 21 capsuleIndications: MOUTH THREE Infiltrating duct TIMES DAILY carcinoma of upper outer quadrant of left female breast, Drug-induced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 citalopram (CeleXA) TAKE 1 30 tablet 1 11/24/19 Discontinued 20 mg TABLET(20 MG) 1 21 tabletIndications: BY MOUTH Infiltrating duct DAILY carcinoma of upper outer quadrant of left female breast, Reactive depression (situational) pregabalin (LYRICA) TAKE 1 90 capsule 0 12/28/19 Discontinued 75 mg CAPSULE BY 1 21 capsuleIndications: MOUTH THREE Infiltrating duct TIMES DAILY carcinoma of upper outer quadrant of left female breast, Drug-induced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 citalopram (CeleXA) TAKE 1 30 tablet 0 02/05/20 Discontinued 20 mg TABLET(20 MG) 1 21 (Reord er) tabletIndications: BY MOUTH Infiltrating duct DAILY carcinoma of upper outer quadrant of left female breast, Reactive depression (situational) letrozole (FEMARA) Take 2.5 mg 0 02/20/20 Discontinued 2.5 mg tablet by mouth 1 21 daily. ergocalciferol Take 1 8 capsule 0 01/27/20 Expir ed (Vitamin D2) 50,000 capsule 1 21 units (50,000 capsuleIndications: Units) by Infiltrating duct mouth every 7 carcinoma of upper days for 8 outer quadrant of doses. Take left female breast, 1 capsule PO Reactive depression once a week. (situational), After 8 Vitamin D weeks, then deficiency, not take Vit D3 otherwise specified 5000 IU (OTC) once daily pregabalin (LYRICA) TAKE 1 90 capsule 0 01/31/20 Discontinued 75 mg CAPSULE BY 1 21 capsuleIndications: MOUTH THREE Infiltrating duct TIMES DAILY carcinoma, 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; Left>, Drug-induced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 pregabalin (LYRICA) TAKE 1 90 capsule 0 04/01/19 Discontinued 75 mg CAPSULE BY 1 22 capsuleIndications: MOUTH THREE Infiltrating duct TIMES DAILY carcinoma, 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; Left>, Drug-induced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 Cancer Staging: Pathologic: Stage IB (pT 2, pN0(sn), cM0, G3, ER+, GA+, HER2-, Oncotype DX score: 43) - Unsigned Encounters Date Type Specialty Care Team Description 04/01/2021 Refill Thoracic Medicine Irene Sherman Infiltra ting duct carcinoma, 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; Left>; RAAD Joseph Drug-induced po lyneuropathy 03/20/2021 Ancillary Procedure Radiology Daron Smith MD 03/20/2021 Ancillary Procedure Radiology Daron Smith MD 03/20/2021 Ancillary Procedure Radiology Daron Smith MD 03/20/2021 Ancillary Procedure Radiology Daron Smith MD 03/06/2021 Office Visit Thoracic Medicine Leslee Heredia, Infiltrati ng duct carcinoma, 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; Left>; MD Justin Reactive depres ryan (situational); Vitamin D defic iency, not otherwise specified 03/06/2021 Travel 02/19/2021 Refill Oncology Irene Sherman Infiltrating duct 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, 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 carcinoma of 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 outer quadrant of left female parminder ast (Primary Dx) 02/04/2021 Refill Oncology Irene Sherman Infiltrating duct carcinoma, 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; Left>; Opal, 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 Reactive depres ryan (situational) 01/29/2021 Refill Thoracic Medicine Irene Sherman Infiltra ting duct carcinoma, 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; Left>; 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, 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 Drug-induced po lyneuropathy 12/27/2020 Refill Thoracic Medicine Irene Sherman Infiltra ting duct carcinoma, 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; Left>; 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, 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 Drug-induced po lyneuropathy 12/07/2020 Office Visit Thoracic Medicine [facility], Vitamin D deficiency, not otherwise specified (Primary Dx); MD Justin 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; Reactive depres ryan (situational) 12/07/2020 Refill Thoracic Medicine [facility], Infiltrati ng duct carcinoma of upper outer quadrant of left female breast; MD Justin Reactive depres ryan (situational); Vitamin D defic iency, not otherwise specified 12/07/2020 Travel 11/23/2020 Refill Thoracic Medicine Irene Sherman Infiltra ting duct carcinoma of upper outer quadrant of left female breast; 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, 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 Reactive depres ryan (situational) 11/20/2020 Refill Thoracic Medicine Irene Sherman Infiltra ting duct carcinoma of upper outer quadrant of left female breast; 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, 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 Drug-induced po lyneuropathy 11/15/2020 Telephone Oncology Sonal Elizabeth RN vaccine 11/15/2020 Telephone Oncology Rasheeda Elizabeth RN 10/16/2020 Refill Thoracic Medicine [facility], Infiltrati ng duct carcinoma of upper outer quadrant of left female breast; MD Justin Drug-induced po lyneuropathy; Reactive depres ryan (situational) 08/15/2020 Office Visit Thoracic Medicine [facility], Reactive d epression (situational) (Primary Dx); MD Justin 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 08/15/2020 Ancillary Procedure Radiology Irene Sherman, 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 08/15/2020 Ancillary Procedure Radiology Irene Sherman Infilt rating duct Opal, 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 carcinoma of up per outer quadrant of left female parminder ast 08/15/2020 Ancillary Procedure Radiology Irene Sherman Infilt rating duct 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, 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 carcinoma of up per outer quadrant of left female parminder ast 08/15/2020 Travel 08/06/2020 Orders Only Thoracic Medicine [facility], Infiltrati ng duct carcinoma of upper outer quadrant of left female breast; MD Justin Drug-induced po lyneuropathy 07/27/2020 Documentation Radiation Oncology Dain Castillo MD 07/27/2020 Travel 07/26/2020 Travel 07/25/2020 Clinical Support Radiation Oncology Dain Castillo MD 07/25/2020 Travel 07/24/2020 Travel 07/23/2020 Documentation Radiation Oncology Denita Sen MD 07/23/2020 Travel 07/20/2020 Refill Thoracic Medicine [facility], Infiltrati ng duct carcinoma of upper outer quadrant of left female breast; MD Justin Drug-induced po lyneuropathy 07/20/2020 Travel 07/19/2020 Travel 07/18/2020 Clinical Support Radiation Oncology Dain Castillo MD 07/18/2020 Travel 07/17/2020 Travel 07/16/2020 Travel 07/13/2020 Documentation Radiation Oncology Dain Castillo MD 07/13/2020 Travel 07/12/2020 Travel 07/11/2020 Clinical Support Radiation Dain Kim MD 07/11/2020 Documentation Radiation Oncology Dain Castillo MD 07/11/2020 Travel 07/10/2020 Travel 07/09/2020 Travel 07/06/2020 Travel 07/05/2020 Travel 07/04/2020 Clinical Support Radiation Oncology Dain Castillo MD 07/04/2020 Travel 07/03/2020 Travel 07/02/2020 Documentation Radiation Oncology Dain Castillo MD 07/02/2020 Travel 06/29/2020 Documentation Radiation Oncology Dain Castillo MD 06/25/2020 Hospital Encounter Radiation Oncology Justin Smith MD 06/21/2020 Documentation Radiation Oncology Dain Castillo MD 06/21/2020 Documentation Radiation Oncology Dain Castillo MD 06/21/2020 Travel 06/20/2020 Documentation Radiation Oncology Iraida Macdonald 06/18/2020 Refill Oncology Leslee Heredia, 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; MD Justin Drug-induced po lyneuropathy 05/25/2020 Documentation Radiation Oncology Iraida Macdonald 05/24/2020 Clinical Support Infectious Rachel Celis PA Suspicion (Primary Dx); Diseases Maryam, 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 DOUGLAS Wilhelm 05/24/2020 Office Visit Radiation Oncology Dain Castillo rating duct RMD carcinoma of up per outer quadrant of left female parminder ast (Primary Dx) 05/24/2020 Documentation Radiation Oncology Dain Castillo MD 05/24/2020 Documentation Radiation Oncology Dain Castillo MD 05/24/2020 Documentation Radiation Oncology Iraida Macdonald 05/24/2020 Travel 05/23/2020 Orders Only Radiation Oncology Dain Castillo rating duct RMD carcinoma of up per outer quadrant of left female parminder ast (Primary Dx) 05/18/2020 Office Visit Oncology Leslee Heredia, 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; MD Justin Drug-induced po lyneuropathy; Encounter for a ntineoplastic chemotherapy; Anemia, not oth erwise specified 05/18/2020 Ancillary Procedure Radiology Lelsee Heredia, Infiltra ting duct carcinoma of upper outer quadrant of left female breast; MD Justin Drug-induced po lyneuropathy; Encounter for a ntineoplastic chemotherapy; Anemia, not oth erwise specified 05/18/2020 Travel 05/11/2020 Telephone Oncology Glenn, port removal in queleazar Dunn RN 05/01/2020 Telephone Oncology Irene Sherman FNP 04/19/2020 Orders Only Infectious [place], SARS-CoV-2 Diseases MD Mulu vaccination 04/16/2020 Orders Only Oncology Irene Sherman (RAAD Li Dx) 04/16/2020 Telephone Oncology carlos Elizabeth RN return to rk 04/10/2020 Infusion Infusion Services Irene Sherman Infiltra ting duct RAAD Joseph carcinoma of up per outer quadrant of left female parminder ast (Primary Dx) 04/10/2020 Travel after 04/06/2020 Immunizations Name Administration Dates Next Due Pfizer SARS-CoV-2 Vaccination 11/09/2020, 10/19/2020 Surgical History Surgery Date Site/Laterality Comments COLONOSCOPY 03/23/2017 - 03/22/2018 HYSTERECTOMY 03/23/1990 - 03/22/1991 STOMACH SURGERY 03/23/2017 - 03/22/2018 Frances Min Medical History Medical History Date Comments Hypertension 2017 Hyperlipidemia 2017 Migraine 2019 Fatty liver 2017 Irritable bowel syndrome 2010 Menopause 1993 Endometriosis 1992 Disorder of thyroid gland 2017 Diabetes mellitus 2017 Anxiety 2015 Breast cancer 2020 Gastroesophageal reflux disease Family History Medical History Relation Name Comments Lung cancer Maternal Uncle 2 70s+smoker Lymphoma Son follicular Relation Name Status Comments Brother 1 Alive Brother 2 (Age 54) Liver cirrhos is Daughter 1 Alive no cancer Daughter 2 Alive no cancer Father Alive Grandchild Alive Maternal Aunt 1 (Age 70s) Covid Maternal Aunt 2 Alive 2 living aunts, no cancer Maternal Cousin Alive multiple nieces/ nephews no cancer history Maternal Grandfather (Age 90s) Maternal Grandmother (Age 90s) Maternal Uncle 1 (Age 70s) 2 unclesno cancer Maternal Uncle 2 (Age 70s) Maternal Uncle 3 Alive no cancer Mother Keila Maxi Alive Benign breast biopsyhysterecto my at 27 Niece/Nephew Alive No nieces/nephew s with cancer history Paternal Aunt Alive 4 aunts no cance r Paternal Grandfather Paternal Grandmother Paternal Uncle Alive 3 uncles no canc er Sister Alive Son Alive Social History Tobacco Use Types Packs/Day Years Used Date Never Smoker 0 0 Smokeless Tobacco: Never Used Alcohol Use Standard Drinks/Week Comments Never 0 (1 standard drink = 0.6 oz pure alcoho l) Sex Assigned at Date Recorded Not on file Job Start Date Occupation Industry Not on file Not on file Not on file Obstetrics History Last Filed Vital Signs Vital Sign Reading Time Taken Comments Blood Pressure 143/88 03/06/2021 7:55 AM 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 CART 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 Pulse 77 03/06/2021 7:55 AM FOOD CART ATTENDANT Temperature 36.9 C (98.4 F) 03/06/2021 7:55 AM FOOD CART ATTENDANT Respiratory Rate 18 03/06/2021 7:55 AM FOOD CART ATTENDANT Oxygen Saturation 97% 03/06/2021 7:55 AM FOOD CART ATTENDANT Inhaled Oxygen Concentration - - Weight 97.2 kg (214 lb 4.6 oz) 03/06/2021 7:55 AM FOOD CART ATTENDANT Height 147.3 cm (4' 10") 05/18/2020 10:00 AM FOOD CART ATTENDANT Body Mass Index 44.79 05/18/2020 10:00 AM FOOD CART ATTENDANT Plan of Treatment Date Type Specialty Care Team Description 06/19/2021 Lab Lab Danielle Smith MD [address] [place], [place] [address] (Wo rk) 06/19/2021 Office Visit Thoracic Medicine Deborah Smith MD [address] [place], [place] [address] (Wo rk) Health Maintenance Due Date Last Done Comments COVID-19 Vaccination (3 - Pfizer risk 12/07/2020 11/09/2020 , 10/19/2020 4-dose series) Procedures Procedure Name Priority Date/Time Associated Diagnosis Comme nts FRACTIONATED BILIRUBIN Routine 03/06/2021 6:59 Infiltrating d uct Results for this AM FO[employer] CART ATTENDANT carcinoma, NOS of procedure are in upper-outer quadrant the res ults of breast <Female; section. Left> Reactive depression (situational) Vitamin D deficiency, not otherwise specified TOTAL PROTEIN Routine 03/06/2021 6:59 Infiltrating duct Resul ts for this AM [employer] CART ATTENDANT carcinoma, NOS of procedure are in upper-outer quadrant the res ults of breast <Female; section. Left> Reactive depression (situational) Vitamin D deficiency, not otherwise specified ASPARTATE Routine 03/06/2021 6:59 Infiltrating duct Result s for this AMINOTRANSFERASE AM FOOD CART ATTENDANT carcinoma, NOS of proced ure are in upper-outer quadrant the res ults of breast <Female; section. Left> Reactive depression (situational) Vitamin D deficiency, not otherwise specified ALANINE Routine 03/06/2021 6:59 Infiltrating duct Result s for this AMINOTRANSFERASE AM FOOD CART ATTENDANT carcinoma, NOS of proced ure are in upper-outer quadrant the res ults of breast <Female; section. Left> Reactive depression (situational) Vitamin D deficiency, not otherwise specified ALKALINE PHOSPHATASE Routine 03/06/2021 6:59 Infiltrating ramakrishna t Results for this AM FOOD CART ATTENDANT carcinoma, NOS of procedure are in upper-outer quadrant the res ults of breast <Female; section. Left> Reactive depression (situational) Vitamin D deficiency, not otherwise specified ALBUMIN LEVEL Routine 03/06/2021 6:59 Infiltrating duct Resul ts for this AM FO[employer] CART ATTENDANT carcinoma, NOS of procedure are in upper-outer quadrant the res ults of breast <Female; section. Left> Reactive depression (situational) Vitamin D deficiency, not otherwise specified CALCIUM LEVEL TOTAL Routine 03/06/2021 6:59 Infil[address]ating duct Results for this AM FO[employer] CART ATTENDANT carcinoma, NOS of procedure are in upper-outer quadrant the res ults of breast <Female; section. Left> Reactive depression (situational) Vitamin D deficiency, not otherwise specified .GLOMERULAR FILTRATION Routine 03/06/2021 6:59 Infiltrating d uct Results for this RATE AM [employer]OD CART ATTENDANT carcinoma, NOS of procedure are in upper-outer quadrant the res ults of breast <Female; section. Left> Reactive depression (situational) Vitamin D deficiency, not otherwise specified SERUM CREATININE Routine 03/06/2021 6:59 Infil[address]ating duct Re sults for this AM FOOD CART ATTENDANT carcinoma, NOS of procedure are in upper-outer quadrant the res ults of breast <Female; section. Left> Reactive depression (situational) Vitamin D deficiency, not otherwise specified ELECTROLYTE PANEL Routine 03/06/2021 6:59 In[address] duct R esults for this AM FOOD CART ATTENDANT carcinoma, NOS of procedure are in upper-outer quadrant the res ults of breast <Female; section. Left> Reactive depression (situational) Vitamin D deficiency, not otherwise specified BLOOD UREA NITROGEN Routine 03/06/2021 6:59 [address] duct Results for this AM FOOD CART ATTENDANT carcinoma, NOS of procedure are in upper-outer quadrant the res ults of breast <Female; section. Left> Reactive depression (situational) Vitamin D deficiency, not otherwise specified GLUCOSE LEVEL Routine 03/06/2021 6:59 Infil[address]ating duct Resul ts for this AM FOOD CART ATTENDANT carcinoma, NOS of procedure are in upper-outer quadrant the res ults of breast <Female; section. Left> Reactive depression (situational) Vitamin D deficiency, not otherwise specified MANUAL DIFFERENTIAL Routine 03/06/2021 6:59 Infiltrating duct Results for this AM FOOD CART ATTENDANT carcinoma, NOS of procedure are in upper-outer quadrant the res ults of breast <Female; section. Left> Reactive depression (situational) Vitamin D deficiency, not otherwise specified Results CBC Routine 03/06/2021 6:59 Infiltrating duct Result s for this AM FOOD CART ATTENDANT carcinoma, NOS of procedure are in upper-outer quadrant the res ults of breast <Female; section. Left> Reactive depression (situational) Vitamin D deficiency, not otherwise specified VITAMIN D 25 HYDROXY Routine 03/06/2021 6:59 Infiltrating ramakrishna t Results for this LEVEL AM FOOD CART ATTENDANT carcinoma, NOS of procedure are in upper-outer quadrant the res ults of breast <Female; section. Left> Reactive depression (situational) Vitamin D deficiency, not otherwise specified LACTATE DEHYDROGENASE Routine 03/06/2021 6:[address] Results for this AM FOOD CART ATTENDANT carcinoma, NOS of procedure are in upper-outer quadrant the res ults of breast <Female; section. Left> Reactive depression (situational) Vitamin D deficiency, not otherwise specified PHOSPHORUS LEVEL Routine 03/06/2021 6:59 [address] duct Re sults for this AM FOOD CART ATTENDANT carcinoma, NOS of procedure are in upper-outer quadrant the res ults of breast <Female; section. Left> Reactive depression (situational) Vitamin D deficiency, not otherwise specified MAGNESIUM LEVEL Routine 03/06/2021 6:59 Infil[address]ating duct Res ults for this AM FOOD CART ATTENDANT carcinoma, NOS of procedure are in upper-outer quadrant the res ults of breast <Female; section. Left> Reactive depression (situational) Vitamin D deficiency, not otherwise specified COMPREHENSIVE METABOLIC Routine 03/06/2021 6:59 [address] duct PANEL AM FOOD CART ATTENDANT carcinoma, 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; Left> Reactive depression (situational) Vitamin D deficiency, not otherwise specified COMPLETE BLOOD COUNT W/ Routine 03/06/2021 6:59 Infil[address]ating duct DIFFERENTIAL AM FOOD CART ATTENDANT carcinoma, 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; Left> Reactive depression (situational) Vitamin D deficiency, not otherwise specified FRACTIONATED BILIRUBIN Routine 12/07/2020 7:00 Infiltrating d uct Results for this AM CDT carcinoma of upper procedure are in outer quadrant of the result s left female coral st section. Reactive depression (situational) TOTAL PROTEIN Routine 12/07/2020 7:00 Infiltrating duct Resul ts for this AM CDT carcinoma of upper procedure are in outer quadrant of the result s left female coral st section. Reactive depression (situational) ASPARTATE Routine 12/07/2020 7:00 Infiltrating duct Result s for this AMINOTRANSFERASE AM CDT carcinoma of upper proce dure are in outer quadrant of the result s left female coral st section. Reactive depression (situational) ALANINE Routine 12/07/2020 7:00 Infiltrating duct Result s for this AMINOTRANSFERASE AM CDT carcinoma of upper proce dure are in outer quadrant of the result s left female coral st section. 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 ASPARTATE Routine 08/15/2020 9:11 [address] duct Result s for this AMINOTRANSFERASE AM CDT carcinoma of upper proce dure are in outer quadrant of the result s left female breast section. ALANINE Routine 08/15/2020 9:11 [address] duct Result s for this AMINOTRANSFERASE AM CDT carcinoma of upper proce dure are in outer quadrant of the result s left female breast section. 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 URIC ACID Routine 08/15/2020 9:[address] Result s for this AM CDT carcinoma of upper procedure are in outer quadrant of the result s left female breast section. PHOSPHORUS LEVEL Routine 08/15/2020 9:[address] duct Re sults for this AM CDT carcinoma of upper procedure are in outer quadrant of the result s left female breast section. MAGNESIUM LEVEL Routine 08/15/2020 9:[address] duct Res ults for this AM CDT carcinoma of upper procedure are in outer quadrant of the result s left female breast section. 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 COMPREHENSIVE METABOLIC Routine 08/15/2020 9:[address] PANEL AM CDT carcinoma of upper outer quadrant of left female breast COMPLETE BLOOD COUNT W/ Routine 08/15/2020 9:[address] DIFFERENTIAL AM CDT carcinoma of upper outer quadrant of left female breast 2019-NCOV COVID-19 Routine 05/24/2020 3:43 Suspicion Re sults for this PM FOOD CART ATTENDANT procedure are i n the results section. DEXA BONE MINERAL Routine 05/18/2020 10:45 [address] duct R esults for this DENSITY BOTH HIPS AND AM FOOD CART ATTENDANT carcinoma of upper procedure are in SPINE outer quadrant of the result s left female coral st section. Drug-induced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 Encounter for antineoplastic chemotherapy Anemia, not otherwise specified FRACTIONATED BILIRUBIN Routine 05/18/2020 10:31 Infiltrating d uct Results for this AM FOOD CART ATTENDANT carcinoma of upper procedure are in outer quadrant of the result s left female coral st section. Drug-induced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 Encounter for antineoplastic chemotherapy Anemia, not otherwise specified TOTAL PROTEIN Routine 05/18/2020 10:[address] duct Resul ts for this AM FOOD CART ATTENDANT carcinoma of upper procedure are in outer quadrant of the result s left female coral st section. Drug-induced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 Encounter for antineoplastic chemotherapy Anemia, not otherwise specified ASPARTATE Routine 05/18/2020 10:31 [address] duct Result s for this AMINOTRANSFERASE AM FOOD CART ATTENDANT carcinoma of upper proce dure are in outer quadrant of the result s left female coral st section. Drug-induced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 Encounter for antineoplastic chemotherapy Anemia, not otherwise specified ALANINE Routine 05/18/2020 10:31 [address] duct Result s for this AMINOTRANSFERASE AM FOOD CART ATTENDANT carcinoma of upper proce dure are in outer quadrant of the result s left female coral st section. Drug-induced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 Encounter for antineoplastic chemotherapy Anemia, not otherwise specified ALKALINE PHOSPHATASE Routine 05/18/2020 10:31 Infiltrating ramakrishna t Results for this AM FOOD CART ATTENDANT carcinoma of upper procedure are in outer quadrant of the result s left female coral st section. Drug-induced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 Encounter for antineoplastic chemotherapy Anemia, not otherwise specified ALBUMIN LEVEL Routine 05/18/2020 10:31 [address] duct Resul ts for this AM FOOD CART ATTENDANT carcinoma of upper procedure are in outer quadrant of the result s left female coral st section. Drug-induced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 Encounter for antineoplastic chemotherapy Anemia, not otherwise specified CALCIUM LEVEL TOTAL Routine 05/18/2020 10:31 [address] duct Results for this AM FOOD CART ATTENDANT carcinoma of upper procedure are in outer quadrant of the result s left female coral st section. Drug-induced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 Encounter for antineoplastic chemotherapy Anemia, not otherwise specified .GLOMERULAR FILTRATION Routine 05/18/2020 10:31 Infiltrating d uct Results for this RATE AM FOOD CART ATTENDANT carcinoma of upper procedure are in outer quadrant of the result s left female coral st section. Drug-induced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 Encounter for antineoplastic chemotherapy Anemia, not otherwise specified SERUM CREATININE Routine 05/18/2020 10:31 [address] duct Re sults for this AM FOOD CART ATTENDANT carcinoma of upper procedure are in outer quadrant of the result s left female coral st section. Drug-induced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 Encounter for antineoplastic chemotherapy Anemia, not otherwise specified ELECTROLYTE PANEL Routine 05/18/2020 10:31 [address] duct R esults for this AM FOOD CART ATTENDANT carcinoma of upper procedure are in outer quadrant of the result s left female coral st section. Drug-induced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 Encounter for antineoplastic chemotherapy Anemia, not otherwise specified BLOOD UREA NITROGEN Routine 05/18/2020 10:31 [address] duct Results for this AM FOOD CART ATTENDANT carcinoma of upper procedure are in outer quadrant of the result s left female coral st section. Drug-induced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 Encounter for antineoplastic chemotherapy Anemia, not otherwise specified GLUCOSE LEVEL Routine 05/18/2020 10:31 [address] duct Resul ts for this AM FOOD CART ATTENDANT carcinoma of upper procedure are in outer quadrant of the result s left female coral st section. Drug-induced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 Encounter for antineoplastic chemotherapy Anemia, not otherwise specified MANUAL DIFFERENTIAL Routine 05/18/2020 10:31 In[address] duct Results for this AM FOOD CART ATTENDANT carcinoma of upper procedure are in outer quadrant of the result s left female coral st section. Drug-induced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 Encounter for antineoplastic chemotherapy Anemia, not otherwise specified Results CBC Routine 05/18/2020 10:31 [address] duct Result s for this AM FOOD CART ATTENDANT carcinoma of upper procedure are in outer quadrant of the result s left female coral st section. Drug-induced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 Encounter for antineoplastic chemotherapy Anemia, not otherwise specified VITAMIN D 25 HYDROXY Routine 05/18/2020 10:31 Infiltrating ramakrishna t Results for this LEVEL AM FOOD CART ATTENDANT carcinoma of upper procedure are in outer quadrant of the result s left female coral st section. Drug-induced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 Encounter for antineoplastic chemotherapy Anemia, not otherwise specified LACTATE DEHYDROGENASE Routine 05/18/2020 10:[address] Results for this AM FOOD CART ATTENDANT carcinoma of upper procedure are in outer quadrant of the result s left female coral st section. Drug-induced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 Encounter for antineoplastic chemotherapy Anemia, not otherwise specified PHOSPHORUS LEVEL Routine 05/18/2020 10:31 [address] duct Re sults for this AM FOOD CART ATTENDANT carcinoma of upper procedure are in outer quadrant of the result s left female coral st section. Drug-induced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 Encounter for antineoplastic chemotherapy Anemia, not otherwise specified MAGNESIUM LEVEL Routine 05/18/2020 10:31 Infil[address] duct Res ults for this AM FOOD CART ATTENDANT carcinoma of upper procedure are in outer quadrant of the result s left female coral st section. Drug-induced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 Encounter for antineoplastic chemotherapy Anemia, not otherwise specified COMPREHENSIVE METABOLIC Routine 05/18/2020 10:[address] duct PANEL AM FOOD CART ATTENDANT carcinoma of upper outer quadrant of left female ocral st Drug-induced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 Encounter for antineoplastic chemotherapy Anemia, not otherwise specified COMPLETE BLOOD COUNT W/ Routine 05/18/2020 10:31 [address] duct DIFFERENTIAL AM FOOD CART ATTENDANT carcinoma of upper outer quadrant of left female coral st Drug-induced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 Encounter for antineoplastic chemotherapy Anemia, not otherwise specified MANUAL DIFFERENTIAL Routine 04/10/2020 12:52 [address] duct Results for this PM FOOD CART ATTENDANT carcinoma of upper procedure are in outer quadrant of the result s left female breast section. Results CBC Routine 04/10/2020 12:52 [address] duct Result s for this PM FOOD CART ATTENDANT carcinoma of upper procedure are in outer quadrant of the result s left female breast section. COMPLETE BLOOD COUNT W/ Routine 04/10/2020 12:52 [address] duct DIFFERENTIAL PM FOOD CART ATTENDANT carcinoma of upper outer quadrant of left female breast after 04/06/2020 Results .Serum Creatinine (03/06/2021 6:59 AM FOOD CART ATTENDANT)Only the most recent of4 results within the time period is included. Pathologist Sig nature Creatinine 0.69Comment: Testing 0.51 - 0.95 mg/dL LYERLY performed at [facility], [address] [place] [address] Specimen Blood Performing Organization Address City/State/ZIP Code Phon e Number [place], [place] [id number] [place] [address] (ABNORMAL) .CBC (03/06/2021 6:59 AM FOOD CART ATTENDANT)Only the most recent of5 resultswithin the time period is included. Pathologist [facility] WBC 5.1Comment: All 4.0 - 11.0 K/uL LYERLY components of the CBC performed at [facility], [address] [place] [address]497 RBC 4.32Comment: All 4.00 - 5.50 LYERLY components of the CBC M/uL performed at [facility], [address] [place] [address] 41398 Hgb 13.5Comment: As part 12.0 - 16.0 LYERLY of CBC or as an gm/dL individual orderable testing performed at [facility], [address] [place] [address] 21625 Hct 40.4Comment: As part 37.0 - 47.0 % LYERLY of CBC testing performed at [facility], [address] [place] [address] MCV 94Comment: As part of 82 - 98 fL LYERLY CBC testing performed at [facility], [address] [place] [address] MCH 31.3 (H)Comment: As 27.0 - 31.0 pg LYERLY part of CBC testing performed at [facility], [address] [place] [address], [place] [address] MCHC 33.4Comment: As part 31.0 - 36.0 LYERLY of CBC testing gm/dL performed at [facility], [address] [place] [address], [place] [address] RDW-SD 42.9Comment: As part 35.1 - 46.3 fL LYERLY of CBC testing performed at [facility], [address] [place] [address] RDW-CV 12.6Comment: As part 12.0 - 15.5 % LYERLY of CBC testing performed at [facility], [address] [place] [address] Platelet count 261Comment: As part 140 - 440 K/uL LYERLY of CBC or an individual orderable testing performed at [facility], [address] [place] [address] MPV 9.4Comment: As part 4.0 - 10.4 fL LYERLY of CBC testing performed at [facility], [address] [place] [address] Specimen Blood Performing Organization Address City/State/ZIP Code Phon e Number [place], [place] [id number] [place] [address] Glomerular Filtration Rate (03/06/2021 6:59 AM FOOD CART ATTENDANT)Only the most recent of4 resultswithin the time period is included. Pathologist Sig nature eGFR-AA 114 >=60 mL/min/1.73 LYERLY Comment: sq. m Normal eGFR >= 60 mL/min/1.73 m2 Note: The eGFR is calculated using the CKD-EPI equation. The eGFR declines with age. eGFR <60 mL/min/1.73 m2 is considered as "decreased". This equation should only be used for patients 18 and older. According to the National [facility]'s Kidney Disease Outcome Quality Initiative (KDOQI) classification and 2012 Kidney Disease Improving Global Outcomes (KDIGO) Clinical Practice Guideline, the stage of CKD should be categorized based on estimated GFR. Stage Description GFR mL/min/1.73 m2 1 Normal or high GFR >=90 2 Mildly decreased GFR 60-89 3a Mildly to moderately decreased GFR 45-59 3b Moderately to severely decreased GFR 30-44 4 Severely decreased GFR 15-29 5 Kidney failure <15 Testing performed at [facility], [address] [place] [address], [place] [address] eGFR-BRANDEN 99 >=60 mL/min/1.73 LYERLY Comment: sq. m Normal eGFR >= 60 mL/min/1.73 m2 Note: The eGFR is calculated using the CKD-EPI equation. The eGFR declines with age. eGFR <60 mL/min/1.73 m2 is considered as "decreased". This equation should only be used for patients 18 and older. According to the National [facility]'s Kidney Disease Outcome Quality Initiative (KDOQI) classification and 2012 Kidney Disease Improving Global Outcomes (KDIGO) Clinical Practice Guideline, the stage of CKD should be categorized based on estimated GFR. Stage Description GFR mL/min/1.73 m2 1 Normal or high GFR >=90 2 Mildly decreased GFR 60-89 3a Mildly to moderately decreased GFR 45-59 3b Moderately to severely decreased GFR 30-44 4 Severely decreased GFR 15-29 5 Kidney failure <15 Testing performed at [facility], [address] [place] [address], [place] [address] Specimen Blood Performing Organization Address City/State/[place] [address] [place] [address] Fractionated Bilirubin (03/06/2021 6:59 AM FOOD CART ATTENDANT)Only the most recent of4 results within the time period is included. [facility] Bili Total 0.3 <=1.2 mg/dL LYERLY Comment: Indocyanine Green (ICG) may cause falsely elevated bilirubin results. Total and direct bilirubin must not be measured from samples containing indocyanine green. False elevation of total michael irubin can be seen in patients with IgG concentrations above 28 g/L. Testing performed at [facility], [address] [place] [address], [place] [address] Bili Direct <0.2 <=0.3 mg/dL LYERLY Comment: Indocyanine Green (ICG) may cause falsely elevated bilirubin results. Total and direct bilirubin must not be measured from samples containing indocyanine green. Testing performed at [facility], [address] [place] [address] Bili Indirect See Note 0.0 - 0.9 LYERLY Comment: mg/dL Unable to calculate Indirect Bilirubin result due to some parameters are outside reportable range Testing performed at [facility], [address] [place] [address] Specimen Blood Performing Organization Address City/[facility]/[address] (ABNORMAL) Vitamin D 25OH (03/06/2021 6:59 AM FOOD CART ATTENDANT)Only the most recent of4 resultswithin the time period is included. Pathologist Will adams Vitamin D 25 OH 22 (L) 30 - 100 ng/mL LYERLY Comment: Reference Range: Deficiency: <10 ng/mL Insufficiency: 10-29 ng/mL Sufficiency: 30-100 ng/mL Potential toxicity: >100 ng/mL Testing performed at [facility], [address] [place] [address] Specimen Blood Performing Organization Address City/[facility] [place], [place] [id number] [place] [address] (ABNORMAL) Differential (03/06/2021 6:59 AM FOOD CART ATTENDANT)Only the most recent of5 resultswithin the time period is included. Neutrophil % 61.9Comment: All 42.0 - 66.0 % LYERLY components of the Differential performed at [facility], [address] [place] [address] Lymphocyte % 22.6 (L)Comment: As 24.0 - 44.0 % LYERLY part of the Differential testing performed at [facility], [address] [place] [address] Monocyte % 11.0 (H)Comment: As 2.0 - 7.0 % LYERLY part of the Differential testing performed at [facility], [address], [place] [address] Eosinophil % 3.3Comment: As part of 1.0 - 4.0 % LYERLY the Differential testing performed at [facility], [address] [place] [address] Basophil % 0.6Comment: As part of 0.0 - 1.0 % LYERLY the Differential testing performed at [facility], [address] [place] [address] IGRE % 0.6 (H) 0.0 - 0.4 % LYERLY Comment: IGRE % count includes Metamyelocytes, Myelocytes, and Promyelocytes. As part of the Differential testing performed at [facility], [address] [place] [address]6067 Neutrophil Abs 3.15Comment: As part 1.70 - 7.30 LYERLY of the Differential K/uL testing performed at [facility], [address] [place] [address]695 Lymphocyte Abs 1.15Comment: As part 1.00 - 4.80 LYERLY of the Differential K/uL testing performed at [facility], [address] [place] [address]202 Monocyte Abs 0.56Comment: As part 0.08 - 0.70 LYERLY of the Differential K/uL testing performed at [facility], [address] [place] [address] 61891 Eosinophil Abs 0.17Comment: As part 0.04 - 0.40 LYERLY of the Differential K/uL testing performed at [facility], [address] [place] [address]58[address] Basophil Abs 0.03Comment: As part 0.00 - 0.10 LYERLY of the Differential K/uL testing performed at [facility], [address] [place] [address] 32610 IG Abs 0.03Comment: As part 0.00 - 0.04 LYERLY of the Differential K/uL testing performed at [facility], [address] [place] [address]1699 Specimen Blood Performing Organization Address City/State/[facility] [place] [address] [place] [address] BUN (03/06/2021 6:59 AM FOOD CART ATTENDANT)Only the most recent of4 resultswithin the time period is included. Pathologist Sig [facility] BUN 8Comment: Testing performed 6 - 23 mg/dL [facility], [address] [place] [address] [id number] Specimen Blood Performing Organization Address City/[facility]/[place] [address] [place] [address] (ABNORMAL) ALT (03/06/2021 6:59 AM FOOD CART ATTENDANT)Only the most recent of4 resultswithin the time period is included. Pathologist Sig [facility] ALT 36 (H)Comment: Testing <=33 U/L LYERLY performed at [facility], [address] [place] [address] Specimen Blood Performing Organization Address City/[facility]/ZIP Code Phon e Number [place], [place] [id number] [place] [address] Aspartate Aminotransferase (03/06/2021 6:59 AM FOOD CART ATTENDANT)Only the most recent of4 resultswithin the time period is included. Pathologist [facility] AST 27Comment: Testing performed <=32 U/L [facility], [address] [place] [address] Specimen Blood Performing Organization Address City/[facility]/[place] [address] [place] [address] Total Protein (03/06/2021 6:59 AM FOOD CART ATTENDANT)Only the most recent of4 resultswithin the time period is included. Pathologist [facility] Total Protein 6.6Comment: Testing 6.4 - 8.3 g/dL LYERLY performed at [facility], [address] [place] [address] Specimen Blood Performing Organization Address City/State/[place] [address] [place] [address] Phosphorus Level (03/06/2021 6:59 AM FOOD CART ATTENDANT)Only the most recent of4 resultswithin the time period is included. Pathologist Sig nature Phosphorus 3.5Comment: Testing 2.5 - 4.5 mg/dL LYERLY performed at [facility], [address] [place] [address] Specimen Blood Performing Organization Address City/[facility]/ZIP Code Phon e Number [place], [place] [id number] [place] [address] (ABNORMAL) Alkaline Phosphatase (03/06/2021 6:59 AM FOOD CART ATTENDANT)Only the most recent of 4 resultswithin the time period is included. Pathologist Sig nature Alk Phos 117 (H)Comment: Testing 35 - 104 U/L LYERLY performed at [facility], [address] [place] [address] Specimen Blood Performing Organization Address City/[facility] Code Phon e [address] Magnesium Level (03/06/2021 6:59 AM FOOD CART ATTENDANT)Only the most recent of4 resultswithin the time period is included. Pathologist Sig nature Magnesium 1.9Comment: Testing 1.6 - 2.6 mg/dL LYERLY performed at [facility], [address] [place] [address] Specimen Blood Performing Organization Address City/[facility]/ZIP Code Phon e Number [address] (ABNORMAL) LDH (03/06/2021 6:59 AM FOOD CART ATTENDANT)Only the most recent of4 resultswithin the time period is included. Pathologist Sig nature LDH 284 (H) 135 - 214 U/L LYERLY Comment: Results greater than 1651 U/ L may not be reliable due to matrix effect with extended dilution as it exceeds the publications writer s recommended limit. Caution should be exercised when interpreting such donnell ues and done in conjunction with clinical context. Testing performed at [facility], [address] [place] [address] Specimen Blood Performing Organization Address City/[facility]/[place]IP [place] [address] (ABNORMAL) Glucose Level (03/06/2021 6:59 AM FOOD CART ATTENDANT)Only the most recent of4 resultswithin the time period is included. Pathologist Sig nature Glucose Level 103 (H) 70 - 99 mg/dL LYERLY Comment: Effective 10/17/15, the gluco se reference intervals have been updated based on [place] [employer] guidelines (Standards of Medical Care in Diabetes 2016. Diabetes Care 2016; 39: S13-S22). Fasting blood glucose: Normal: 70-99 mg/dL Impaired fasting glucose (in creased risk for diabetes or pre-diabetes): 100- 125 mg/dL Diabetes mellitus: >/=126 mg/dL Random blood glucose: Normal: 70-199 mg/dL Note: Random glucose >100 mg/dL is assoc iated with increased risk for diabetes Testing performed at [facility], [address] [place] [address] Specimen Blood Performing Organization Address City/[facility]/ZIP Code Phon e Number [address] Calcium Level (03/06/2021 6:59 AM FOOD CART ATTENDANT)Only the most recent of4 resultswithin the time period is included. Pathologist Sig nature Calcium Lvl 8.8Comment: Testing 8.4 - 10.2 mg/dL LYERLY performed at [facility], [address] [place] [address] Specimen Blood Performing Organization Address City/[facility]/ZIP Code Phon e Number [place] [id number] [place] [address] Albumin Level (03/06/2021 6:59 AM FOOD CART ATTENDANT)Only the most recent of4 resultswithin the time period is included. Pathologist Sig nature Albumin Lvl 4.3Comment: Testing 3.5 - 5.2 gm/dL LYERLY performed at [facility], [address] [place] [address]779 Specimen Blood Performing Organization Address City/[facility]/ZIP Code Phon e Number [address] Electrolyte Panel (03/06/2021 6:59 AM FOOD CART ATTENDANT)Only the most recent of4 results within the time period is included. Pathologist Sig nature Sodium Lvl 143Comment: Testing 136 - 145 mEq/L LYERLY performed at [facility], [address] [place] [address] Potassium Lvl 3.8Comment: Testing 3.5 - 5.1 mEq/L LYERLY performed at [facility], [address] [place] [address]266 Chloride 106Comment: Testing 98 - 107 mEq/L LYERLY performed at [facility], [address] [place] [address]283 CO2 27Comment: Testing 22 - 29 mEq/L LYERLY performed at [facility], [address] [place] [address] Anion Gap 10Comment: Testing 4 - 14 mEq/L LYERLY performed at [facility], [address] [place] [address] Specimen Blood Performing Organization Address City/State/[place] [address] [place] [address] NM Bone Scan Whole Body (08/15/2020 12:04 PM CDT) Specimen Impressions [id number] - 08/15/2020 12:10 PM CDT No scintigraphic evidence of osseous met astatic disease. Narrative [id number] - 08/15/2020 12:10 PM CDT FULL RESULT: Examination: Whole-Body Bone Scan, 2020 12:04 PM Clinical History: Breast cancer Indication: Subsequent treatment plannin g Comparison: Bone scan from 10/18/2019 Technique: Following the intravenous adm inistration of 21.4 mCi of technetium- 99m MDP, anterior and posterior delayed whole body planar images were acquired. Findings: No suspicious focal uptake in the osseous structures. Focal uptake in the left lower lumbar sp ine, stable, correlating with degenerative facet changes on CT. Hyperostosis. Mild diffuse activity in the left breast, nonspecific, possibly postsurgical. Simila r appearance of heterogeneous activity i n the thoracolumbar spine correlating with probable degenerative changes on CT. Excreted activity identified in the kidneys and urinary bladder. Procedure Note Annika Grossman MD - 08/15/2020 FULL RESULT: Examination: Whole-Body Bone Scan, 2020 12:04 PM Clinical History: Breast cancer Indication: Subsequent treatment plannin g Comparison: Bone scan from 10/18/2019 Technique: Following the intravenous adm inistration of 21.4 mCi of technetium- 99m MDP, anterior and posterior delayed whole body planar images were acquired. Findings: No suspicious focal uptake in the osseous structures. Focal uptake in the left lower lumbar sp ine, stable, correlating with degenerative facet changes on CT. Hyperostosis. Mild diffuse activity in the left breast, nonspecific, possibly postsurgical. Similar appearance of heterogeneous activity in the thoracolum bar spine correlating with probable degenerative changes on CT. Excreted activity identified in the kidneys and urinary bladder. IMPRESSION: No scintigraphic evidence of osseous met astatic disease. Performing Organization Address City/State/ZIP Code Phon e Number [id number] CT Chest Abdomen Pelvis with Contrast (08/15/2020 11:40 AM CDT) Specimen Impressions [id number] - 08/15/2020 12:06 PM CDT Incidental findings and postsurgical nani nges as described above without evidence of local disease recurrence or metastasis within the thorax, abdomen and pelvis. 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 Findings: CT thorax: Postsurgical changes of left segmental m astectomy. Diffuse skin thickening of the left breast seen. There is no lung mass or consolidation. A stable tiny left lower lobe lung nodule (series 7, image 100 ). Tiny right upper lobe lung nodule has resolved. There is no significant mediastinal, hilar or axillary lymphadenopathy. The heart and great vessels are normal. No pleural or pericardial effusion. The trachea and bilateral major airways are unremarkable. Multilevel degenerative changes of the visualized axial skeleton. CT abdomen and pelvis: Diffuse hepatic steatosis; a stable, tin y left hepatic vascular shunt (series 6, image 81). Tiny right perihepatic nodule has resolved. The pancreas, both adrenals, spleen, gallbladder and bilateral kid neys are normal. The stomach and small b owel loops are normal. Incidental sigmoid diverticulosis. There is no significant pelvic, retroperitoneal or mesenteric lymphadenopathy. There is no ascites. The urinary bladder is partially distended. Status post hysterectomy. Bilateral small ovarian cysts are seen. There is no solid adnexal mass. Partial thrombus within the right ovarian vein again seen. Anter ior pelvic wall subcutaneous postinjecti on changes. Multilevel degenerative changes of the visualized axial skeleton. Atherosclerotic changes of the abdominal aorta and its branches. 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 Findings: CT thorax: Postsurgical changes of left segmental m astectomy. Diffuse skin thickening of the left breast seen. There is no lung mass or consolidation. A stable tiny left lower lobe lung nodule (series 7, image 100). Tiny right upper lobe lung nodule has resolved. There is no significant mediastinal, hilar or axillary lymphadenopathy. The heart and great vessels are normal. No pleural or pericardial effusion. The trachea and bilateral major airways are unremarkable. Multilevel degenerativ e changes of the visualized axial skeleton. CT abdomen and pelvis: Diffuse hepatic steatosis; a stable, tin y left hepatic vascular shunt (series 6, image 81). Tiny right perihepatic nodule has resolved. The pancreas, both adrenals, spleen, gallbladder and bilateral kidneys are normal. The stomach and small bowel loop s are normal. Incidental sigmoid diverticulosis. There is no significant pelvic, retroperitoneal or mesenteric lymphadenopathy. There is no ascites. The urinary bladder is partially distended. Status post hystere ctomy. Bilateral small ovarian cysts are seen. There is no solid adnexal mass. Partial thrombus within the right ovarian vein again seen. Anterior pelvic wall subcutaneous postinjection changes. Multilevel degene rative changes of the visualized axial skeleton. Atherosclerotic changes of the abdominal aorta and its branches. IMPRESSION: Incidental findings and postsurgical nani nges as described above without evidence of local disease recurrence or metastasis within the thorax, abdomen and pelvis. Performing Organization Address City/State/ZIP Code Phon e Number [id number] Uric Acid (08/15/2020 9:11 AM CDT) Pathologist Sig nature Uric Acid 5.5Comment: Testing 2.4 - 5.7 mg/dL LYERLY performed at [facility], [address] [facility], [place] [address] Specimen Blood Performing Organization Address City/[facility]/[place] [address] [address] [facility] (ABNORMAL) COVID-19 (HAWK-CoV-2) PCR Asymptomatic (05/24/2020 3:43 PM FOOD CART ATTENDANT) COVID19 SARS Pre-Radiation Therapy [facility] COVID19 SARS Result Detected (C) Not Detected [facility] COVID19 SARS SARS-CoV-2 Detected. [facility] Reference Range: Not Detected Methodology: The Pak Real Time SARS-CoV-2 assay is a qualitative real-time reverse fur cleaner polymerase chain reaction (glove former-PCR) test to detect RNA from SARS-CoV-2 in nasal, nasopharyngeal and oropharyngeal swabs from patients with signs and symptoms of infection who ar e suspected of COVID-19 by their health care provider. The Pak RealTime SARS-CoV-2 performed on the Nuevora000 System is a dual target assay with primers and probes for the RdRp and N genes. Results must be interpreted within the context of all relevant clinical and laboratory findings, and epidemiological risk factors. Positive results are indicative of the presence of SARS-CoV-2 RNA; clinical correlation with patient history and other diagnostic information is ne cessary to determine patient infection status. Positive results do not rule out bacterial infection or co-infection with other viruses. Negative results do not preclude SARS- CoV-2 infection and should not be used as the sole basis for patient management decisions. The Pak RealTime SARS-CoV -2 assay is for in vitro diagnostic use under FDA Emergency Use Authorization only. Testing is limited to laboratories certified under the Clinical Laboratory Improvement Delmy ndments of 1988 (CLIA), 42U.S.C. 263a, to perform high complexity tests. The T est was performed by the CLIA-certified, high- complexity Molecular Diagnostics Laboratory ([facility]) at [facility] under the Food and Drug Administration (FDA) s Emergency Use Authorization. Factsheet for patients: https://www.[facility]erson.org/Abb ottFactSheetPatients Factsheet for healthcare pro viders: https://www.[facility]erson.org/AbbottFactSheetHCP Test performed by: [facility] [address] [place] [address] Specimen Nasopharyngeal Swab Performing Organization Address City/State/ZIP Code Phon e Number [facility] Unless otherwise noted, [place] [address] CENTER all lab tests performed by: Division of Pathology and Laboratory Medicine [address] [facility] DEXA Bone Mineral Density Both Hips and Spine (05/18/2020 10:45 AM FOOD CART ATTENDANT) Specimen Impressions [id number] - 05/18/2020 12:48 PM FOOD CART ATTENDANT Osteopenia based on measurements in the lumbar spine I personally reviewed these image(s) phuong baca with the resident's/fellow's interpretations, certify that if a procedure was performed I was physically present, and agree with the final report. Narrative [id number] - 05/18/2020 12:48 PM FOOD CART ATTENDANT FULL RESULT: Examination: Bone Mineral Density (DXA), 05/18/2020 Clinical History: 55-year-old postmenopa usal female with breast cancer. Indication: Assessment of bone mineral d ensity.. Comparison: None. Technique: Bone mineral density was obta ined using Hologic dual-energy X-ray absorptiometry. The nondominant distal forearm was added due to patient's BMI more than 40. Findings: The findings are provided in t he below table(s). Bone Density: Region Exam Date BMD T- Z- g/cm2 Score Score AP Spine (L1-L4) 05/18/2020 0. 910 -1.2 -0.3 Femoral Neck (Left) 05/18/2020 0. 849 0.0 0.9 Total Hip (Left) 05/18/2020 1. 018 0.6 1.2 Femoral Neck (Right) 05/18/2020 0. 776 -0.7 0.3 Total Hip (Right) 05/18/2020 0. 967 0.2 0.8 1/3 Forearm (Left) 05/18/2020 0. 632 -0.9 0.0 For postmenopausal women and men age 50 and over, the World Health Organization criteria for BMD interpreta tion classify patients as: Normal (T-score at or above -1.0), Osteopenia ( T-score between -1.0 and -2.5), or Osteoporosis (T-score at or be low -2.5). Procedure Note Phan Saez MD - 05/18/2020 FULL RESULT: Examination: Bone Mineral Density (DXA), 05/18/2020 Clinical History: 55-year-old postmenopa usal female with breast cancer. Indication: Assessment of bone mineral d ensity.. Comparison: None. Technique: Bone mineral density was obta ined using Hologic dual-energy X-ray absorptiometry. The nondominant distal forearm was added due to patient's BMI more than 40. Findings: The findings are provided in t he below table(s). Bone Density: Region Exam Date BMD T- Z- g/c m2 Score Score AP Spine (L1-L4) 05/18/2020 0.910 -1. 2 -0.3 Femoral Neck (Left) 05/18/2020 0.849 0. 0 0.9 Total Hip (Left) 05/18/2020 1.018 0. 6 1.2 Femoral Neck (Right) 05/18/2020 0.776 -0. 7 0.3 Total Hip (Right) 05/18/2020 0.967 0. 2 0.8 1/3 Forearm (Left) 05/18/2020 0.632 -0. 9 0.0 For postmenopausal women and men age 50 and over, the World Health Organization criteria for BMD interpreta tion classify patients as: Normal (T-score at or above -1.0), Osteopenia ( T-score between -1.0 and -2.5), or Osteoporosis (T-score at or be low -2.5). IMPRESSION: Osteopenia based on measurements in the lumbar spine I personally reviewed these image(s) phuong baca with the resident's/fellow's interpretations, certify that if a procedure was performed I was physically present, and agree with the final report. Performing Organization Address City/State/ZIP Code Phon e Number [id number] after 04/06/2020 Insurance Payer Benefit Plan / Subscriber ID Effective Dates Phone Addre ss Type Group [employer] PPO POS [id number] 2020-Present [id number] [place] [address] Care Teams Health Nurse Relationship Specialty Start Date End Date Justin Smith MD PCP - General Medical Oncology 09/27/[address] [place] [address] Meghann Daigle PCP - External Referring Surgical Oncology 09/27/19 MD Saba Calixto Arroyo, PCP - External Follow Up 05/18/20 MD Vidal VALENZUELA [place], [place] [address]
--- OUTSIDE RECORDS SUMMARY | 2021-04-06 10:29 | XMS REPORT | Continuity of Care Document ---
:1965 Author Organization [facility] t Address [address] [place] [address] Care Team Providers Name Role Phone [phone] Primary Care Physician Unavailable Jeanette BLAKELY Attending Clinician Unavailable SYSTEM, NOT IN Attending Clinician Unavailable Zora MONTEJO S Attending Clinician Opal Malagon Attending Clinician Melina Dixon MD Attending Clinician MELINA DIXON Attending Clinician Unavailable Jass CENTENO Attending Clinician Unavailable Glenn COLE, L. Attending Clinician Unavailable Jass Centeno MD Attending Clinician Doctor Unassigned, Name Attending Clinician Unavailable Latrell Castillo MD Attending Clinician Rosa Sen MD Attending Clinician Torres Attending Clinician Unavailable Demetrio Turcios DO Attending Clinician Vimal NIETO Attending Clinician Maryam COLE Attending Clinician Unavailable Maya MONTEJO Attending Clinician Elodia Gan RN Attending Clinician Unavailable Only, Test Attending Clinician Unavailable Latrell CASTILLO Attending Clinician Unavailable Deangelo MONTEJO Attending Clinician Edith CAMPOVERDE Attending Clinician Unavailable Only, Test Attending Clinician Unavailable Marlen Knight LMSW Attending Clinician Unavailable RADIOLOGY Attending Clinician Unavailable Radiology Attending Clinician Unavailable Pob, Lab Main Attending Clinician Unavailable Santiago Carr MD Attending Clinician 1, Lab Attending Clinician Unavailable Jeanette BLAKELY Admitting Clinician Unavailable Jeanette Blakely MD Admitting Clinician Maribell ALFARO Admitting Clinician Unavailable Payers Payer Name Policy Type Policy Number Effective Date Expiration Date S ource [employer] [place] [id number] 2014 00:00:00 BLUE CROSS BLUE [id number] 2020 MD [facility] [place] [facility] 00:00:00 [id number] 03/2020-[id number], [place] [id number] Problems Condition Condition Condition Status Onset Resolution Last Treating Co mments Source Name Details Category Date Date Treatment Clinician Date 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 unspecifie unspecifie Added d site of d site of automatic breast breast ally from request for surgery [id number] Type 2 Type 2 Disease Active 2014-03 Univers diabetes diabetes 1-11 ity of mellitus mellitus 00:00: [place] without without 00 Medical complicati complicati Br anch on on Essential Essential Disease Active 2014-03 Uni vers hypertensi hypertensi 1-11 it y of on on 00:00: [address] Branch Vitamin D Vitamin D Disease Active Uni vers deficiency deficiency 3-26 it y of 00:00: [place] [facility] Branch Abnormal Abnormal Disease Active Unive rs weight weight 3-17 ity of gain gain 00:00: [place] [facility] Branch Headache Headache Disease Active Overview: Un [place] 3-17 Form[place] ity of 00:00: g of this note Medical might be Branch different from the original. ICD10 Diagnosis Term [employer]ker[employer] Utility Fatigue Fatigue Disease Active Univers 3-17 ity of 00:00: [place] [address] Medical Branch Allergies, Adverse Reactions, Alerts Allergy Allergy Status Severity Reaction(s) Onset Inactive Treating Comm ents Source Name Type Date Date Clinician NO KNOWN Drug Active Univers ALLERGIE Class ity of [facility] Family History Family Member Diagnosis Comments Start Date Stop Date Source Maternal uncle Lung cancer MD [place]uca on Natural son Lymphoma MD [place] Social History Social Habit Start Date Stop Date Quantity Comments Source Exposure to Not sure [facility]-CoV-2 [facility] (event) Branch Alcohol intake 2021-03-06 2021-03-06 Lifetime MD [place] n 00:00:00 00:00:00 non-drinker (finding) Tobacco use and 2019-10-12 2019-10-12 Smokeless tobacco MD Cody exposure 00:00:00 00:00:00 non-user Sex Ass[birth year] At [birth year] MD [place] on 00:00:00 00:00:00 Smoking Status Start Date Stop Date Source Never smoked tobacco MD Cody Medications Ordered Filled Start Stop Current Ordering Indication Dosage Frequency Signature Comments Components Source Medication Medication Date Date Medication? Clinician (SIG) Name Name pregabalin Yes Drug-induce TAKE 1 MD (LYRICA) 75 1-10 d CAPSULE BY An derso mg capsule 00:00: polyneuropa MOUTH n 00 thy THREE TIMES DAILY pantoprazol 2020-03 Yes 20mg Take 20 mg MD e 2-15 by mouth Anderso (PROTONIX) 08:22: daily with n 40 mg EC 11 breakfast. tablet lisinopril 2020-03 Yes 10mg Take 10 mg M D (PRINIVIL,Z 2-15 by mouth Ronald rso ESTRIL) 10 08:22: every n mg tablet 11 morning. atorvastati 2020-03 Yes 20mg Take 20 mg MD n (LIPITOR) 2-15 by mouth. And erso 20 mg 08:22: n tablet 11 ergocalcife 2020-03- Yes Vitamin D 94201A Take 1 MD rol 2-15 03-04 deficiency, capsule Ronald rso (Vitamin 00:00: 05:59 not (50,000 n D2) 50,000 00 :00 otherwise Units) by units specified mouth capsule every 7 days for 12 doses. Take 1 capsule PO once a week. After 12 weeks, then take Vit D3 5000 IU (OTC) once daily letrozole 2020-03 Yes Infiltratin TAKE 1 MD (FEMARA) 1-30 g duct TABLET(2.5 And erso 2.5 mg 00:00: carcinoma, MG) BY n tablet 00 NOS of MOUTH upper-outer DAILY quadrant of breast <Female; Left> citalopram 2020-03 Yes Reactive 20mg Take 1 M D (CeleXA) 20 1-15 depression tablet (20 Anderso mg tablet 00:00: (situationa mg) by n 00 l) mouth daily. pregabalin 2020-03- No Drug-induce TAKE 1 MD (LYRICA) 75 1-10 01-10 d CAPSULE BY A nderso mg capsule 00:00: 00:00 polyneuropa MOUTH n 00 :00 thy THREE TIMES DAILY pregabalin 2020-03- No Drug-induce TAKE 1 MD (LYRICA) 75 0-07 11-10 d CAPSULE BY A nderso mg capsule 00:00: 00:00 polyneuropa MOUTH n 00 :00 thy THREE TIMES DAILY ergocalcife 2020- No Vitamin D 19450T Take 1 MD rol 9-17 11-07 deficiency, capsule Ronald rso (Vitamin 00:00: 04:59 not (50,000 n D2) 50,000 00 :00 otherwise Units) by units specified mouth capsule every 7 days for 8 doses. Take 1 capsule PO once a week. After 8 weeks, then take Vit D3 5000 IU (OTC) once daily citalopram 2020- No Reactive TAKE 1 MD (CeleXA) 20 9-03 11-15 depression TABLET(20 Anderso mg tablet 00:00: 00:00 (situationa MG) BY n 00 :00 l) MOUTH DAILY letrozole 2020- No 2.5mg Take 2.5 MD (FEMARA) 11-21 11-30 mg by Anderso 2.5 mg 00:00: 00:00 mouth n tablet 00 :00 daily. pregabalin 2020- No Drug-induce TAKE 1 MD (LYRICA) 75 11-21 10-07 d CAPSULE BY A nderso mg capsule 00:00: 00:00 polyneuropa MOUTH n 00 :00 thy THREE TIMES DAILY citalopram 2020- No Reactive TAKE 1 MD (CeleXA) 20 10-17 09- depression TABLET(20 Anderso mg tablet 00:00: 00:00 (situationa MG) BY n 00 :00 l) MOUTH DAILY pregabalin 2020- No Drug-induce TAKE 1 MD (LYRICA) 75 10-17 d CAPSULE BY A nderso mg capsule 00:00: 00:00 polyneuropa MOUTH n 00 :00 thy THREE TIMES DAILY busPIRone 2020- No 10mg Take 10 mg M D (BUSPAR) 10 08-15 05- by mouth And erso mg tablet 14:33: 00:00 daily. n 26 :00 citalopram 2020- No Reactive 20mg Take 1 MD (CeleXA) 20 08-15 depression tablet (20 Anderso mg tablet 00:00: 00:00 (situationa mg) by n 00 :00 l) mouth daily. pregabalin 2020- No Drug-induce TAKE 1 MD (LYRICA) 75 08-06 d CAPSULE(50 A nderso mg capsule 00:00: 00:00 polyneuropa MG) BY n 00 :00 thy MOUTH THREE TIMES DAILY zolpidem Yes 5mg Take 5 mg Univ ers (AMBIEN) 5 5-14 by mouth ity o f mg tablet 14:48: at [place]time [place] 13 as needed Medical for Branch Insomnia. lisinopril Yes 20mg Take 20 mg U nivers (PRINIVIL,Z 5-14 by mouth ity of ESTRIL) 20 14:48: daily. [place] mg tablet 13 Medical Branch metFORMIN Yes 500mg Take 500 Uni vers (GLUCOPHAGE 5-14 mg by ity of ) 500 mg 14:48: mouth [place] tablet 13 daily. Medical Branch amitriptyli 0 Yes 50mg Take 50 mg Univers ne (ELAVIL) 5-14 by mouth ity of 50 mg 14:48: at [place] tablet 13 bedtime. Medical Branch pantoprazol 0 Yes 40mg Take 40 mg Univers e 5-14 by mouth ity of (PROTONIX) 14:48: daily. [place] 40 mg EC 13 Medical tablet Branch zolpidem 0 Yes 5mg Take 5 mg Univ ers (AMBIEN) 5 5-14 by mouth ity o f mg tablet 14:48: at bedtime [place] 13 as needed Medical for Branch Insomnia. lisinopril 0 Yes 20mg Take 20 mg U nivers (PRINIVIL,Z 5-14 by mouth ity of ESTRIL) 20 14:48: daily. [place] mg tablet 13 Medical Branch metFORMIN Yes 500mg Take 500 Uni vers (GLUCOPHAGE 5-14 mg by ity of ) 500 mg 14:48: mouth [place] tablet 13 daily. Medical Branch amitriptyli Yes 50mg Take 50 mg Univers ne (ELAVIL) 5-14 by mouth ity of 50 mg 14:48: at [place] tablet 13 bedtime. Medical Branch pantoprazol Yes 40mg Take 40 mg Univers e 5-14 by mouth ity of (PROTONIX) 14:48: daily. [place] 40 mg EC 13 Medical tablet Branch zolpidem Yes 5mg Take 5 mg Univ ers (AMBIEN) 5 5-14 by mouth ity o f mg tablet 14:48: at bedtime [place] 13 as needed Medical for Branch Insomnia. lisinopril 0 Yes 20mg Take 20 mg U nivers (PRINIVIL,Z 5-14 by mouth ity of ESTRIL) 20 14:48: daily. [place] mg tablet 13 Medical Branch metFORMIN 0 Yes 500mg Take 500 Uni vers (GLUCOPHAGE 5-14 mg by ity of ) 500 mg 14:48: mouth [place] tablet 13 daily. Medical Branch amitriptyli 0 Yes 50mg Take 50 mg Univers ne (ELAVIL) 5-14 by mouth ity of 50 mg 14:48: at [place] tablet 13 bedtime. Medical Branch pantoprazol 0 Yes 40mg Take 40 mg Univers e 5-14 by mouth ity of (PROTONIX) 14:48: daily. [place] 40 mg EC 13 Medical tablet Branch zolpidem 0 Yes 5mg Take 5 mg Univ ers (AMBIEN) 5 5-14 by mouth ity o f mg tablet 14:48: at bedtime [place] 13 as needed Medical for Branch Insomnia. lisinopril 2020-0 Yes 20mg Take 20 mg U nivers (PRINIVIL,Z 5-14 by mouth ity of ESTRIL) 20 14:48: daily. [place] mg tablet 13 Medical Branch metFORMIN 0 Yes 500mg Take 500 Uni vers (GLUCOPHAGE 5-14 mg by ity of ) 500 mg 14:48: mouth [place] tablet 13 daily. Medical Branch amitriptyli 0 Yes 50mg Take 50 mg Univers ne (ELAVIL) 5-14 by mouth ity of 50 mg 14:48: at [place] tablet 13 bedtime. Medical Branch pantoprazol 0 Yes 40mg Take 40 mg Univers e 5-14 by mouth ity of (PROTONIX) 14:48: daily. [place] 40 mg EC 13 Medical tablet Branch zolpidem 0 Yes 5mg Take 5 mg Univ ers (AMBIEN) 5 5-14 by mouth ity o f mg tablet 14:48: at bedtime [place] 13 as needed Medical for Branch Insomnia. lisinopril 2020-0 Yes 20mg Take 20 mg U nivers (PRINIVIL,Z 5-14 by mouth ity of ESTRIL) 20 14:48: daily. [place] mg tablet 13 Medical Branch metFORMIN 0 Yes 500mg Take 500 Uni vers (GLUCOPHAGE 5-14 mg by ity of ) 500 mg 14:48: mouth [place] tablet 13 daily. Medical Branch amitriptyli 2020-0 Yes 50mg Take 50 mg Univers ne (ELAVIL) 5-14 by mouth ity of 50 mg 14:48: at [place] tablet 13 bedtime. Medical Branch pantoprazol 0 Yes 40mg Take 40 mg Univers e 5-14 by mouth ity of (PROTONIX) 14:48: daily. [place] 40 mg EC 13 Medical tablet Branch zolpidem 2021-0 Yes 5mg Take 5 mg Univ ers (AMBIEN) 5 5-14 by mouth ity o f mg tablet 14:48: at bedtime [place] 13 as needed Medical for Branch Insomnia. lisinopril Yes 20mg Take 20 mg U nivers (PRINIVIL,Z 5-14 by mouth ity of ESTRIL) 20 14:48: daily. [place] mg tablet 13 Medical Branch metFORMIN Yes 500mg Take 500 Uni vers (GLUCOPHAGE 5-14 mg by ity of ) 500 mg 14:48: mouth [place] tablet 13 daily. Medical Branch amitriptyli Yes 50mg Take 50 mg Univers ne (ELAVIL) 5-14 by mouth ity of 50 mg 14:48: at [place] tablet 13 bedtime. Medical Branch pantoprazol Yes 40mg Take 40 mg Univers e 5-14 by mouth ity of (PROTONIX) 14:48: daily. [place] 40 mg EC 13 Medical tablet Branch zolpidem Yes 5mg Take 5 mg Univ ers (AMBIEN) 5 5-14 by mouth ity o f mg tablet 09:48: at bedtime [place] 13 as needed Medical for Branch Insomnia. lisinopril Yes 20mg Take 20 mg U nivers (PRINIVIL,Z 5-14 by mouth ity of ESTRIL) 20 09:48: daily. [place] mg tablet 13 Medical Branch metFORMIN Yes 500mg Take 500 Uni vers (GLUCOPHAGE 5-14 mg by ity of ) 500 mg 09:48: mouth [place] tablet 13 daily. Medical Branch amitriptyli Yes 50mg Take 50 mg Univers ne (ELAVIL) 5-14 by mouth ity of 50 mg 09:48: at [place] tablet 13 bedtime. Medical Branch pantoprazol Yes 40mg Take 40 mg Univers e 5-14 by mouth ity of (PROTONIX) 09:48: daily. [place] 40 mg EC 13 Medical tablet Branch pregabalin 2020- No Drug-induce TAKE 1 MD (LYRICA) 50 4-30 05-17 d CAPSULE(50 A nderso mg capsule 00:00: 00:00 polyneuropa MG) BY n 00 :00 thy MOUTH THREE TIMES DAILY Linzess 290 Yes 1{capsu Take 1 M D mcg cap 4-21 le} capsule by [place] o 00:00: mouth as n 00 needed. pregabalin 2020- No Drug-induce TAKE 1 MD (LYRICA) 50 3-30 04-30 d CAPSULE(50 A nderso mg capsule 00:00: 00:00 polyneuropa MG) BY n 00 :00 thy MOUTH THREE TIMES DAILY traMADol Yes Infiltratin 50mg Take 1 MD (ULTRAM) 50 2-26 g duct tablet (50 Anderso mg tablet 00:00: carcinoma mg) by n 00 of upper mouth outer every 6 quadrant of (six) left female hours as breast needed for moderate pain. letrozole 2020- No Infiltratin 2.5mg Take 1 MD (FEMARA) 2-26 05-28 g duct tablet [place] o 2.5 mg 00:00: 04:59 carcinoma (2.5 mg) n tablet 00 :00 of upper by mouth outer daily for quadrant of 90 days. left female breast pregabalin 2020- No Drug-induce 50mg Take 1 MD (Lyrica) 50 2-26 03-30 d capsule Ronald rso mg capsule 00:00: 00:00 polyneuropa (50 mg) by n 00 :00 thy mouth 3 (three) times a day. gabapentin 2020- No Drug-induce 900mg Take 3 MD (NEURONTIN) 2-09 04-30 d capsules And erso 300 mg 00:00: 00:00 polyneuropa (900 mg) n capsule 00 :00 thy by mouth 3 (three) times a day. traMADol 2020- No Infiltratin 50mg Take 1 MD (ULTRAM) 50 2-09 02-26 g duct tablet (50 Anderso mg tablet 00:00: 00:00 carcinoma mg) by n 00 :00 of upper mouth outer every 6 quadrant of (six) left female hours as breast needed for moderate pain. amoxicillin 2020- No Paronychia 875mg Take 1 MD -clavulanat 1-25 02-02 tablet Elijah so e 00:00: 05:59 (875 mg) n (AUGMENTIN) 00 :00 by mouth 875 mg-125 twice mg per daily for tablet 7 days. gabapentin 2020-0 2020- No Drug-induce 800mg Take 1 MD (NEURONTIN) 104 02-09 d tablet Elijah so 800 mg 00:00: 00:00 polyneuropa (800 mg) n tablet 00 :00 thy by mouth 3 (three) times a day. triamcinolo 2019-03 Yes Dermatitis, Apply MD chahal 04-14 not topically Anderso (KENALOG) 00:00: otherwise to n ointment 00 specified affected 0.1% area(s) twice daily. zolpidem 2019-0 Yes 5mg Take 5 mg Univ ers (AMBIEN) 5 7-30 by mouth ity o f mg tablet 19:24: at bedtime [place] 55 as needed Medical for Branch Insomnia. lisinopril 2019-0 Yes 20mg Take 20 mg U nivers (PRINIVIL,Z 7-30 by mouth ity of ESTRIL) 20 19:24: daily. [place] mg tablet 55 Medical Branch metFORMIN 2019-0 Yes 500mg Take 500 Uni vers (GLUCOPHAGE 7-30 mg by ity of ) 500 mg 19:24: mouth [place] tablet 55 daily. Medical Branch amitriptyli 2019-0 Yes 50mg Take 50 mg Univers ne (ELAVIL) 7-30 by mouth ity of 50 mg 19:24: at [place] tablet 55 bedtime. Medical Branch pantoprazol 2019-0 Yes 40mg Take 40 mg Univers e 7-30 by mouth ity of (PROTONIX) 19:24: daily. [place] 40 mg EC 55 Medical tablet Branch metoprolol 2019-0 Yes 25mg Take 25 mg U nivers tartrate 7-30 by mouth 2 ity o f (LOPRESSOR) 19:24: (two) [place] 25 mg 55 times Medical tablet daily. Branch phentermine 2019-0 Yes 37.5mg Take 37.5 Univers 37.5 mg 7-30 mg by ity of capsule 19:24: mouth [place] 55 every Medical morning. Branch traZODone 2020-0 Yes 50mg Take 50 mg [place] 50 mg 7-30 by mouth ity of tablet 19:24: at [place] 55 bedtime. Medical Branch busPIRone 2019-0 Yes 10mg Take 10 mg Un [place] 10 mg 7-30 by mouth ity of tablet 19:24: as needed. [place] [address] Medical Branch topiramate 2020-0 Yes 25mg Take 25 mg U nivers 25 mg 7-30 by mouth. ity of tablet 19:24: [place] [address] Medical Branch zolpidem 2020-0 Yes 5mg Take 5 mg Univ ers (AMBIEN) 5 7-30 by mouth ity o f mg tablet 19:24: at bedtime [place] 55 as needed Medical for Branch Insomnia. lisinopril 2020-0 Yes 20mg Take 20 mg U nivers (PRINIVIL,Z 7-30 by mouth ity of ESTRIL) 20 19:24: daily. [place] mg tablet 55 Medical Branch metFORMIN 2020-0 Yes 500mg Take 500 Uni vers (GLUCOPHAGE 7-30 mg by ity of ) 500 mg 19:24: mouth [place] tablet 55 daily. Medical Branch amitriptyli 2020-0 Yes 50mg Take 50 mg Univers ne (ELAVIL) 7-30 by mouth ity of 50 mg 19:24: at [place] tablet 55 bedtime. Medical Branch pantoprazol 2020-0 Yes 40mg Take 40 mg Univers e 7-30 by mouth ity of (PROTONIX) 19:24: daily. [place] 40 mg EC 55 Medical tablet Branch metoprolol 2020-0 Yes 25mg Take 25 mg U nivers tartrate 7-30 by mouth 2 ity o f (LOPRESSOR) 19:24: (two) [place] 25 mg 55 times Medical tablet daily. Branch phentermine 2020-0 Yes 37.5mg Take 37.5 Univers 37.5 mg 7-30 mg by ity of capsule 19:24: mouth [place] 55 every Medical morning. Branch traZODone 2020-0 Yes 50mg Take 50 mg Un [place] 50 mg 7-30 by mouth ity of tablet 19:24: at [place] 55 bedtime. Medical Branch busPIRone 2020-0 Yes 10mg Take 10 mg Un [place] 10 mg 7-30 by mouth ity of tablet 19:24: as needed. [place] [address] Medical Branch topiramate 2020-0 Yes 25mg Take 25 mg U nivers 25 mg 7-30 by mouth. ity of tablet 19:24: [place] [address] Medical Branch zolpidem 2020-0 Yes 5mg Take 5 mg Univ ers (AMBIEN) 5 7-30 by mouth ity o f mg tablet 19:24: at bedtime [place] 55 as needed Medical for Branch Insomnia. lisinopril 2020-0 Yes 20mg Take 20 mg U nivers (PRINIVIL,Z 7-30 by mouth ity of ESTRIL) 20 19:24: daily. [place] mg tablet 55 Medical Branch metFORMIN 2020-0 Yes 500mg Take 500 Uni vers (GLUCOPHAGE 7-30 mg by ity of ) 500 mg 19:24: mouth [place] tablet 55 daily. Medical Branch amitriptyli 2020-0 Yes 50mg Take 50 mg Univers ne (ELAVIL) 7-30 by mouth ity of 50 mg 19:24: at [place] tablet 55 bedtime. Medical Branch pantoprazol 2020-0 Yes 40mg Take 40 mg Univers e 7-30 by mouth ity of (PROTONIX) 19:24: daily. [place] 40 mg EC 55 Medical tablet Branch metoprolol 2020-0 Yes 25mg Take 25 mg U nivers tartrate 7-30 by mouth 2 ity o f (LOPRESSOR) 19:24: (two) [place] 25 mg 55 times Medical tablet daily. Branch phentermine 2020-0 Yes 37.5mg Take 37.5 Univers 37.5 mg 7-30 mg by ity of capsule 19:24: mouth [place] 55 every Medical morning. Branch traZODone 2020-0 Yes 50mg Take 50 mg Un [place] 50 mg 7-30 by mouth ity of tablet 19:24: at [place] 55 bedtime. Medical Branch busPIRone 2020-0 Yes 10mg Take 10 mg Un [place] 10 mg 7-30 by mouth ity of tablet 19:24: as needed. [place] [address] Medical Branch topiramate 2020-0 Yes 25mg Take 25 mg U nivers 25 mg 7-30 by mouth. ity of tablet 19:24: [place] 55 Medical Branch zolpidem 2020-0 Yes 5mg Take 5 mg Univ ers (AMBIEN) 5 7-30 by mouth ity o f mg tablet 19:24: at bedtime [place] 55 as needed Medical for Branch Insomnia. lisinopril 2020-0 Yes 20mg Take 20 mg U nivers (PRINIVIL,Z 7-30 by mouth ity of ESTRIL) 20 19:24: daily. [place] mg tablet 55 Medical Branch metFORMIN 2020-0 Yes 500mg Take 500 Uni vers (GLUCOPHAGE 7-30 mg by ity of ) 500 mg 19:24: mouth [place] tablet 55 daily. Medical Branch amitriptyli 2020-0 Yes 50mg Take 50 mg Univers ne (ELAVIL) 7-30 by mouth ity of 50 mg 19:24: at [place] tablet 55 bedtime. Medical Branch pantoprazol 2020-0 Yes 40mg Take 40 mg Univers e 7-30 by mouth ity of (PROTONIX) 19:24: daily. [place] 40 mg EC 55 Medical tablet Branch metoprolol 2020-0 Yes 25mg Take 25 mg U nivers tartrate 7-30 by mouth 2 ity o f (LOPRESSOR) 19:24: (two) [place] 25 mg 55 times Medical tablet daily. Branch phentermine 2020-0 Yes 37.5mg Take 37.5 Univers 37.5 mg 7-30 mg by ity of capsule 19:24: mouth [place] 55 every Medical morning. Branch traZODone 2020-0 Yes 50mg Take 50 mg [place] 50 mg 7-30 by mouth ity of tablet 19:24: at [place] 55 bedtime. Medical Branch busPIRone 2020-0 Yes 10mg Take 10 mg Un [place] 10 mg 7-30 by mouth ity of tablet 19:24: as needed. [place] [address] Medical Branch topiramate 2020-0 Yes 25mg Take 25 mg U nivers 25 mg 7-30 by mouth. ity of tablet 19:24: [place] [address] Medical Branch zolpidem 2020-0 Yes 5mg Take 5 mg Univ ers (AMBIEN) 5 7-30 by mouth ity o f mg tablet 19:24: at bedtime [place] 55 as needed Medical for Branch Insomnia. lisinopril 2020-0 Yes 20mg Take 20 mg U nivers (PRINIVIL,Z 7-30 by mouth ity of ESTRIL) 20 19:24: daily. [place] mg tablet 55 Medical Branch metFORMIN 2020-0 Yes 500mg Take 500 Uni vers (GLUCOPHAGE 7-30 mg by ity of ) 500 mg 19:24: mouth [place] tablet 55 daily. Medical Branch amitriptyli 2020-0 Yes 50mg Take 50 mg Univers ne (ELAVIL) 7-30 by mouth ity of 50 mg 19:24: at [place] tablet 55 bedtime. Medical Branch pantoprazol 2020-0 Yes 40mg Take 40 mg Univers e 7-30 by mouth ity of (PROTONIX) 19:24: daily. [place] 40 mg EC 55 Medical tablet Branch metoprolol 2020-0 Yes 25mg Take 25 mg U nivers tartrate 7-30 by mouth 2 ity o f (LOPRESSOR) 19:24: (two) [place] 25 mg 55 times Medical tablet daily. Branch phentermine 2020-0 Yes 37.5mg Take 37.5 Univers 37.5 mg 7-30 mg by ity of capsule 19:24: mouth [place] 55 every Medical morning. Branch traZODone 2020-0 Yes 50mg Take 50 mg [place] 50 mg 7-30 by mouth ity of tablet 19:24: at [place] 55 bedtime. Medical Branch busPIRone 2020-0 Yes 10mg Take 10 mg [place] 10 mg 7-30 by mouth ity of tablet 19:24: as needed. [place] [address] Medical Branch topiramate 2020-0 Yes 25mg Take 25 mg U nivers 25 mg 7-30 by mouth. ity of tablet 19:24: [place] [address] Medical Branch zolpidem 2020-0 Yes 5mg Take 5 mg Univ ers (AMBIEN) 5 7-30 by mouth ity o f mg tablet 19:24: at bedtime [place] 55 as needed Medical for Branch Insomnia. lisinopril 2020-0 Yes 20mg Take 20 mg U nivers (PRINIVIL,Z 7-30 by mouth ity of ESTRIL) 20 19:24: daily. [place] mg tablet 55 Medical Branch metFORMIN 2020-0 Yes 500mg Take 500 Uni vers (GLUCOPHAGE 7-30 mg by ity of ) 500 mg 19:24: mouth [place] tablet 55 daily. Medical Branch amitriptyli 2020-0 Yes 50mg Take 50 mg Univers ne (ELAVIL) 7-30 by mouth ity of 50 mg 19:24: at [place] tablet 55 bedtime. Medical Branch pantoprazol 2020-0 Yes 40mg Take 40 mg Univers e 7-30 by mouth ity of (PROTONIX) 19:24: daily. [place] 40 mg EC 55 Medical tablet Branch metoprolol 2020-0 Yes 25mg Take 25 mg U nivers tartrate 7-30 by mouth 2 ity o f (LOPRESSOR) 19:24: (two) [place] 25 mg 55 times Medical tablet daily. Branch phentermine 2020-0 Yes 37.5mg Take 37.5 Univers 37.5 mg 7-30 mg by ity of capsule 19:24: mouth [place] 55 every Medical morning. Branch traZODone 2020-0 Yes 50mg Take 50 mg [place] 50 mg 7-30 by mouth ity of tablet 19:24: at [place] [address] bedtime. Medical Branch busPIRone 2020-0 Yes 10mg Take 10 mg [place] 10 mg 7-30 by mouth ity of tablet 19:24: as needed. [place] [address] Medical Branch topiramate 2020-0 Yes 25mg Take 25 mg U nivers 25 mg 7-30 by mouth. ity of tablet 19:24: [place] [address] Medical Branch metoprolol 2020-0 Yes 25mg Take 25 mg U nivers tartrate 7-30 by mouth 2 ity o f (LOPRESSOR) 19:24: (two) [place] 25 mg 55 times Medical tablet daily. Branch phentermine 2020-0 Yes 37.5mg Take 37.5 Univers 37.5 mg 7-30 mg by ity of capsule 19:24: mouth [place] 55 every Medical morning. Branch traZODone 2020-0 Yes 50mg Take 50 mg [place] 50 mg 7-30 by mouth ity of tablet 19:24: at [place] [address] bedtime. Medical Branch busPIRone 2020-0 Yes 10mg Take 10 mg [place] 10 mg 7-30 by mouth ity of tablet 19:24: as needed. [place] [address] Medical Branch topiramate 2020-0 Yes 25mg Take 25 mg U nivers 25 mg 7-30 by mouth. ity of tablet 19:24: [place] [address] Medical Branch metoprolol 2020-0 Yes 25mg Take 25 mg U nivers tartrate 7-30 by mouth 2 ity o f (LOPRESSOR) 19:24: (two) [place] 25 mg 55 times Medical tablet daily. Branch phentermine 2020-0 Yes 37.5mg Take 37.5 Univers 37.5 mg 7-30 mg by ity of capsule 19:24: mouth [place] 55 every Medical morning. Branch traZODone 2020-0 Yes 50mg Take 50 mg [place] 50 mg 7-30 by mouth ity of tablet 19:24: at [place] [address] bedtime. Medical Branch busPIRone 2020-0 Yes 10mg Take 10 mg [place] 10 mg 7-30 by mouth ity of tablet 19:24: as needed. [place] [address] Medical Branch topiramate 2020-0 Yes 25mg Take 25 mg U nivers 25 mg 7-30 by mouth. ity of tablet 19:24: [place] [address] Medical Branch metoprolol 2020-0 Yes 25mg Take 25 mg U nivers tartrate 7-30 by mouth 2 ity o f (LOPRESSOR) 19:24: (two) [place] 25 mg 55 times Medical tablet daily. Branch phentermine 2020-0 Yes 37.5mg Take 37.5 Univers 37.5 mg 7-30 mg by ity of capsule 19:24: mouth [place] 55 every Medical morning. Branch traZODone 2020-0 Yes 50mg Take 50 mg [place] 50 mg 7-30 by mouth ity of tablet 19:24: at [place] [address] bedtime. Medical Branch busPIRone 2020-0 Yes 10mg Take 10 mg [place] 10 mg 7-30 by mouth ity of tablet 19:24: as needed. [place] [address] Medical Branch topiramate 2020-0 Yes 25mg Take 25 mg U nivers 25 mg 7-30 by mouth. ity of tablet 19:24: [place] [address] Medical Branch metoprolol 2020-0 Yes 25mg Take 25 mg U nivers tartrate 7-30 by mouth 2 ity o f (LOPRESSOR) 19:24: (two) [place] 25 mg 55 times Medical tablet daily. Branch phentermine 2020-0 Yes 37.5mg Take 37.5 Univers 37.5 mg 7-30 mg by ity of capsule 19:24: mouth [place] 55 every Medical morning. Branch traZODone 2020-0 Yes 50mg Take 50 mg [place] 50 mg 7-30 by mouth ity of tablet 19:24: at [place] [address] bedtime. Medical Branch busPIRone 2020-0 Yes 10mg Take 10 mg [place] 10 mg 7-30 by mouth ity of tablet 19:24: as needed. [place] [address] Medical Branch topiramate 2020-0 Yes 25mg Take 25 mg U nivers 25 mg 7-30 by mouth. ity of tablet 19:24: [place] [address] Medical Branch metoprolol 2020-0 Yes 25mg Take 25 mg U nivers tartrate 7-30 by mouth 2 ity o f (LOPRESSOR) 19:24: (two) [place] 25 mg 55 times Medical tablet daily. Branch phentermine 2020-0 Yes 37.5mg Take 37.5 Univers 37.5 mg 7-30 mg by ity of capsule 19:24: mouth [place] 55 every Medical morning. Branch traZODone 2020-0 Yes 50mg Take 50 mg [place] 50 mg 7-30 by mouth ity of tablet 19:24: at [place] [address] bedtime. Medical Branch busPIRone 2020-0 Yes 10mg Take 10 mg [place] 10 mg 7-30 by mouth ity of tablet 19:24: as needed. [place] [address] Medical Branch topiramate 2020-0 Yes 25mg Take 25 mg U nivers 25 mg 7-30 by mouth. ity of tablet 19:24: [place] [address] Medical Branch metoprolol 2020-0 Yes 25mg Take 25 mg U nivers tartrate 7-30 by mouth 2 ity o f (LOPRESSOR) 19:24: (two) [place] 25 mg 55 times Medical tablet daily. Branch phentermine 2020-0 Yes 37.5mg Take 37.5 Univers 37.5 mg 7-30 mg by ity of capsule 19:24: mouth [place] [address] every Medical morning. Branch traZODone 2020-0 Yes 50mg Take 50 mg [place] 50 mg 7-30 by mouth ity of tablet 19:24: at [place] [address] bedtime. Medical Branch busPIRone 2020-0 Yes 10mg Take 10 mg [place] 10 mg 7-30 by mouth ity of tablet 19:24: as needed. [place] [address] Medical Branch topiramate 2020-0 Yes 25mg Take 25 mg U nivers 25 mg 7-30 by mouth. ity of tablet 19:24: [place] [address] Medical Branch lactated 2020-0 Yes 500mL at 75 Univers ringers IV 7-30 mL/hr, 500 ity of infusion 18:45: mL, IV [place] 500 mL 00 Infusion, Medical CONTINUOUS Branch , Starting [facility] 10/20/19 at 1345, Until Discontinu ed, Routine, PACU ondansetron 2020-0 Yes 4mg 4 mg, Slow Univers (ZOFRAN 7-30 IV Push, ity of (PF)) 18:34: PRN, 1 [place] injection 4 20 dose, Medical mg Starting Branch [facility] 10/20/19 at 1334, Until Discontinu ed, Routine, Nausea and Vomiting (N/V), PACU morpHINE 2020-0 Yes 2mg 2 mg, Slow Uni vers injection 2 7-30 IV Push, ity of mg 18:34: Q5MIN PRN, [place] 19 5 doses, Medical Starting Branch [facility] 10/20/19 at 1334, Until Discontinu ed, Routine, Pain (scale 4-6), PACU traMADol 2020-0 Yes 50mg 50 mg, Univers (ULTRAM) 7-30 Oral, PRN, ity o f tablet 50 18:34: 1 dose, [place] mg [address] [facility] 10/20/19 at 1334, Until Discontinu ed, Routine, Pain (scale 7-10), DSU Recovery traMADol 2020-0 Yes 50mg 50 mg, Univers (ULTRAM) 7-30 Oral, PRN, ity o f tablet 50 18:34: 1 dose, [place] mg [address] [facility] 10/20/19 at 1334, Until Discontinu ed, Routine, Pain (scale 4-6), DSU Recovery ibuprofen 2020-0 Yes 800mg 800 mg, Univ ers (IBU) 7-30 Oral, PRN, ity of tablet 800 18:34: 1 dose, [place] mg [address] [facility] 10/20/19 at 1334, Until Discontinu ed, Routine, Pain (scale 1-3), DSU Recovery hydrogen 2020-0 Yes PRN, Univers peroxide 3 10-19 Starting ity o f % topical 17:37: [facility] [place] solution 00 10/20/19 at Medic al 1237, Branch Until Discontinu ed, Routine, Intra-op heparin 2020-0 Yes PRN, Univers lock flush 10-19 Starting ity o f (HEPARIN 17:37: [facility] [place] LOCKFLUSH(P 10/20/19 at [place] dical ORCINE)(PF) 1237, Home ) 100 Until unit/mL Discontinu injection ed, Routine, Intra-op bupivacaine 2020-0 Yes PRN, Univer s (preserv 10-19 Starting ity of free) 0.5% 17:36: [facility] [place] (SENSORCAIN 00 10/20/19 at [place] dicnm E MPF) 0.5 1236, Home % (5 mg/mL) Intra-op 30 mL, NaCl 0.9% (NS) 30 mL lactated 2020-0 2020- No 1000mL at [address] [place] [address] rs ringers IV 10-19 07-30 mL/hr, ity of infusion 15:00: 15:09 1,000 mL, [place] as 1,000 mL 00 :00 IV Medical Infusion, Branch ONCE, 1 dose, [facility] 10/20/19 at 1000, Routine, DSU Pre-op metoprolol 2020-0 Yes 25mg Take 25 mg U nivers tartrate 7-30 by mouth 2 ity o f (LOPRESSOR) 14:24: (two) [place] 25 mg 55 times Medical tablet daily. Branch phentermine 2020-0 Yes 37.5mg Take 37.5 Univers 37.5 mg 7-30 mg by ity of capsule 14:24: mouth [place] 55 every Medical morning. Branch traZODone 2020-0 Yes 50mg Take 50 mg [place] 50 mg 7-30 by mouth ity of tablet 14:24: at [place] [address] bedtime. Medical Branch busPIRone 2020-0 Yes 10mg Take 10 mg [place] 10 mg 7-30 by mouth ity of tablet 14:24: as needed. [place] [address] Medical Branch topiramate 2020-0 Yes 25mg Take 25 mg U nivers 25 mg 7-30 by mouth. ity of tablet 14:24: [place] [address] Medical Branch prochlorper 2020-0 Yes Infiltratin 10mg Take 1 MD azine 7-27 g duct tablet (10 [place] o (COMPAZINE) 00:00: carcinoma mg) by n 10 mg 00 of upper mouth tablet outer every 6 quadrant of (six) left female hours as breast needed for nausea or vomiting. lidocaine-p 2019- Yes Infiltratin Apply to MD rilocaine 7-27 g duct Port-A-Cat An derso (EMLA) 00:00: carcinoma h area 30 n 2.5-2.5% 00 of upper to 45 cream outer minutes quadrant of prior to left female port breast access as directed (topical anesthetic ). ondansetron 2020- No Infiltratin 8mg Take 1 MD (ZOFRAN) 8 7-27 05-26 g duct tablet (8 A nderso mg tablet 00:00: 00:00 carcinoma mg) by n 00 :00 of upper mouth outer every 8 quadrant of (eight) left female hours as breast needed for nausea or vomiting. traMADol 2019-2020- No Infiltratin 50mg Take 1 MD (ULTRAM) 50 7-27 02-09 g duct tablet (50 [place] mg tablet 00:00: 00:00 carcinoma mg) by n 00 :00 of upper mouth outer every 6 quadrant of (six) left female hours as breast needed for moderate pain. zolpidem 2020-0 Yes 5mg Take 5 mg Univ ers (AMBIEN) 5 7-24 by mouth ity o f mg tablet 21:03: at bedtime [place] 07 as needed Medical for Branch Insomnia. metFORMIN 2020-0 Yes 500mg Take 500 Uni vers (GLUCOPHAGE 7-24 mg by ity of ) 500 mg 21:03: mouth [place] tablet 07 daily. Medical Branch pantoprazol 2020-0 Yes 40mg Take 40 mg Univers e 7-24 by mouth ity of (PROTONIX) 21:03: daily. [place] 40 mg EC 07 Medical tablet Branch metoprolol 2020-0 Yes 25mg Take 25 mg U nivers tartrate 7-24 by mouth 2 ity o f (LOPRESSOR) 21:03: (two) [place] 25 mg 07 times Medical tablet daily. Branch topiramate 2020-0 Yes 25mg Take 25 mg U nivers 25 mg 7-24 by mouth. ity of tablet 21:03: Medical Branch zolpidem 2020-0 Yes 5mg Take 5 mg Univ ers (AMBIEN) 5 7-24 by mouth ity o f mg tablet 21:03: at bedtime [place] 07 as needed Medical for Branch Insomnia. metFORMIN 2020-0 Yes 500mg Take 500 Uni vers (GLUCOPHAGE 7-24 mg by ity of ) 500 mg 21:03: mouth [place] tablet 07 daily. Medical Branch pantoprazol 2020-0 Yes 40mg Take 40 mg Univers e 7-24 by mouth ity of (PROTONIX) 21:03: daily. [place] 40 mg EC 07 Medical tablet Branch metoprolol 2020-0 Yes 25mg Take 25 mg U nivers tartrate 7-24 by mouth 2 ity o f (LOPRESSOR) 21:03: (two) [place] 25 mg 07 times Medical tablet daily. Branch topiramate 2020-0 Yes 25mg Take 25 mg U nivers 25 mg 7-24 by mouth. ity of tablet 21:03: Medical Branch zolpidem 2020-0 Yes 5mg Take 5 mg Univ ers (AMBIEN) 5 7-24 by mouth ity o f mg tablet 21:03: at bedtime [place] 07 as needed Medical for Branch Insomnia. metFORMIN 2020-0 Yes 500mg Take 500 Uni vers (GLUCOPHAGE 7-24 mg by ity of ) 500 mg 21:03: mouth [place] tablet 07 daily. Medical Branch pantoprazol 2020-0 Yes 40mg Take 40 mg Univers e 7-24 by mouth ity of (PROTONIX) 21:03: daily. [place] 40 mg EC 07 Medical tablet Branch metoprolol 2020-0 Yes 25mg Take 25 mg U nivers tartrate 7-24 by mouth 2 ity o f (LOPRESSOR) 21:03: (two) [place] 25 mg 07 times Medical tablet daily. Branch topiramate 2020-0 Yes 25mg Take 25 mg U nivers 25 mg 7-24 by mouth. ity of tablet 21:03: [place] 07 Medical Branch lisinopril 2020-0 Yes 20mg Take 20 mg U nivers (PRINIVIL,Z 7-24 by mouth ity of ESTRIL) 20 21:02: daily. [place] mg tablet 37 Medical Branch amitriptyli 2020-0 Yes 50mg Take 50 mg Univers ne (ELAVIL) 7-24 by mouth ity of 50 mg 21:02: at [place] tablet 37 bedtime. Medical Branch busPIRone 2020-0 Yes 10mg Take 10 mg [place] 10 mg 7-24 by mouth ity of tablet 21:02: as needed. [place] 37 Medical Branch lisinopril 2020-0 Yes 20mg Take 20 mg U nivers (PRINIVIL,Z 7-24 by mouth ity of ESTRIL) 20 21:02: daily. [place] mg tablet 37 Medical Branch amitriptyli 2020-0 Yes 50mg Take 50 mg Univers ne (ELAVIL) 7-24 by mouth ity of 50 mg 21:02: at [place] tablet 37 bedtime. Medical Branch busPIRone 2020-0 Yes 10mg Take 10 mg [place] 10 mg 7-24 by mouth ity of tablet 21:02: as needed. [place] [address] Medical Branch lisinopril 2020-0 Yes 20mg Take 20 mg U nivers (PRINIVIL,Z 7-24 by mouth ity of ESTRIL) 20 21:02: daily. [place] mg tablet 37 Medical Branch amitriptyli 2020-0 Yes 50mg Take 50 mg Univers ne (ELAVIL) 7-24 by mouth ity of 50 mg 21:02: at [place] tablet 37 bedtime. Medical Branch busPIRone 2020-0 Yes 10mg Take 10 mg [place] 10 mg 7-24 by mouth ity of tablet 21:02: as needed. [place] 37 Medical Branch amitriptyli 2020-0 Yes 50mg Take 50 mg Univers ne (ELAVIL) 7-06 by mouth ity of 50 mg 18:26: at [place] tablet 36 bedtime. Medical Branch pantoprazol 2020-0 Yes 40mg Take 40 mg Univers e 7-06 by mouth ity of (PROTONIX) 18:26: daily. [place] 40 mg EC 36 Medical tablet Branch metoprolol 2020-0 Yes 25mg Take 25 mg U nivers tartrate 7-06 by mouth 2 ity o f (LOPRESSOR) 18:26: (two) [place] 25 mg 36 times Medical tablet daily. Branch amitriptyli 2020-0 Yes 50mg Take 50 mg Univers ne (ELAVIL) 7-06 by mouth ity of 50 mg 18:26: at [place] tablet 36 bedtime. Medical Branch pantoprazol 2020-0 Yes 40mg Take 40 mg Univers e 7-06 by mouth ity of (PROTONIX) 18:26: daily. [place] 40 mg EC 36 Medical tablet Branch metoprolol 2020-0 Yes 25mg Take 25 mg U nivers tartrate 7-06 by mouth 2 ity o f (LOPRESSOR) 18:26: (two) [place] 25 mg 36 times Medical tablet daily. Branch amitriptyli 2020-0 Yes 50mg Take 50 mg Univers ne (ELAVIL) 7-06 by mouth ity of 50 mg 18:26: at [place] tablet 36 bedtime. Medical Branch pantoprazol 2020-0 Yes 40mg Take 40 mg Univers e 7-06 by mouth ity of (PROTONIX) 18:26: daily. [place] 40 mg EC 36 Medical tablet Branch metoprolol 2020-0 Yes 25mg Take 25 mg U nivers tartrate 7-06 by mouth 2 ity o f (LOPRESSOR) 18:26: (two) [place] 25 mg 36 times Medical tablet daily. Branch amitriptyli 2020-0 Yes 50mg Take 50 mg Univers ne (ELAVIL) 7-06 by mouth ity of 50 mg 18:26: at [place] tablet 36 bedtime. Medical Branch pantoprazol 2020-0 Yes 40mg Take 40 mg Univers e 7-06 by mouth ity of (PROTONIX) 18:26: daily. [place] 40 mg EC 36 Medical tablet Branch metoprolol 2020-0 Yes 25mg Take 25 mg U nivers tartrate 7-06 by mouth 2 ity o f (LOPRESSOR) 18:26: (two) [place] 25 mg 36 times Medical tablet daily. Branch zolpidem 2020-0 Yes 5mg Take 5 mg Univ ers (AMBIEN) 5 7-06 by mouth ity o f mg tablet 18:26: at bedtime [place] 16 as needed Medical for Branch Insomnia. lisinopril 2020-0 Yes 20mg Take 20 mg U nivers (PRINIVIL,Z 7-06 by mouth ity of ESTRIL) 20 18:26: daily. [place] mg tablet 16 Medical Branch metFORMIN 2020-0 Yes 500mg Take 500 Uni vers (GLUCOPHAGE 7-06 mg by ity of ) 500 mg 18:26: mouth [place] tablet 16 daily. Medical Branch phentermine 2020-0 Yes 37.5mg Take 37.5 Univers 37.5 mg 7-06 mg by ity of capsule 18:26: mouth [place] 16 every Medical morning. Branch traZODone 2020-0 Yes 50mg Take 50 mg [place] 50 mg 7-06 by mouth ity of tablet 18:26: at [place] 16 bedtime. Medical Branch busPIRone 2020-0 Yes 10mg Take 10 mg [place] 10 mg 7-06 by mouth ity of tablet 18:26: as needed. [place] [address] Medical Branch topiramate 2020-0 Yes 25mg Take 25 mg U nivers 25 mg 7-06 by mouth. ity of tablet 18:26: [place] 16 Medical Branch zolpidem 2020-0 Yes 5mg Take 5 mg Univ ers (AMBIEN) 5 7-06 by mouth ity o f mg tablet 18:26: at bedtime [place] 16 as needed Medical for Branch Insomnia. lisinopril 2020-0 Yes 20mg Take 20 mg U nivers (PRINIVIL,Z 7-06 by mouth ity of ESTRIL) 20 18:26: daily. [place] mg tablet 16 Medical Branch metFORMIN 2020-0 Yes 500mg Take 500 Uni vers (GLUCOPHAGE 7-06 mg by ity of ) 500 mg 18:26: mouth [place] tablet 16 daily. Medical Branch phentermine 2020-0 Yes 37.5mg Take 37.5 Univers 37.5 mg 7-06 mg by ity of capsule 18:26: mouth [place] 16 every Medical morning. Branch traZODone 2020-0 Yes 50mg Take 50 mg [place] 50 mg 7-06 by mouth ity of tablet 18:26: at [place] [address] bedtime. Medical Branch busPIRone 2020-0 Yes 10mg Take 10 mg [place] 10 mg 7-06 by mouth ity of tablet 18:26: as needed. [place] [address] Medical Branch topiramate 2020-0 Yes 25mg Take 25 mg U nivers 25 mg 7-06 by mouth. ity of tablet 18:26: [place] [address] Medical Branch zolpidem 2020-0 Yes 5mg Take 5 mg Univ ers (AMBIEN) 5 7-06 by mouth ity o f mg tablet 18:26: at bedtime [place] 16 as needed Medical for Branch Insomnia. lisinopril 2020-0 Yes 20mg Take 20 mg U nivers (PRINIVIL,Z 7-06 by mouth ity of ESTRIL) 20 18:26: daily. [place] mg tablet 16 Medical Branch metFORMIN 2020-0 Yes 500mg Take 500 Uni vers (GLUCOPHAGE 7-06 mg by ity of ) 500 mg 18:26: mouth [place] tablet 16 daily. Medical Branch phentermine 2020-0 Yes 37.5mg Take 37.5 Univers 37.5 mg 7-06 mg by ity of capsule 18:26: mouth [place] 16 every Medical morning. Branch traZODone 2020-0 Yes 50mg Take 50 mg [place] 50 mg 7-06 by mouth ity of tablet 18:26: at [place] [address] bedtime. Medical Branch busPIRone 2020-0 Yes 10mg Take 10 mg [place] 10 mg 7-06 by mouth ity of tablet 18:26: as needed. [place] [address] Medical Branch topiramate 2020-0 Yes 25mg Take 25 mg U nivers 25 mg 7-06 by mouth. ity of tablet 18:26: [place] [address] Medical Branch zolpidem 2020-0 Yes 5mg Take 5 mg Univ ers (AMBIEN) 5 7-06 by mouth ity o f mg tablet 18:26: at bedtime [place] 16 as needed Medical for Branch Insomnia. lisinopril 2020-0 Yes 20mg Take 20 mg U nivers (PRINIVIL,Z 7-06 by mouth ity of ESTRIL) 20 18:26: daily. [place] mg tablet 16 Medical Branch metFORMIN 2020-0 Yes 500mg Take 500 Uni vers (GLUCOPHAGE 7-06 mg by ity of ) 500 mg 18:26: mouth [place] tablet 16 daily. Medical Branch phentermine 2020-0 Yes 37.5mg Take 37.5 Univers 37.5 mg 7-06 mg by ity of capsule 18:26: mouth [place] 16 every Medical morning. Branch traZODone 2020-0 Yes 50mg Take 50 mg [place] 50 mg 7-06 by mouth ity of tablet 18:26: at [place] [address] bedtime. Medical Branch busPIRone 2020-0 Yes 10mg Take 10 mg [place] 10 mg 7-06 by mouth ity of tablet 18:26: as needed. [place] [address] Medical Branch topiramate 2020-0 Yes 25mg Take 25 mg U nivers 25 mg 7-06 by mouth. ity of tablet 18:26: [place] [address] Medical Branch phentermine 2020-0 Yes 37.5mg Take 37.5 Univers 37.5 mg 7-06 mg by ity of capsule 18:26: mouth [place] 16 every Medical morning. Branch traZODone 2020-0 Yes 50mg Take 50 mg [place] 50 mg 7-06 by mouth ity of tablet 18:26: at [place] [address] bedtime. Medical Branch phentermine 2020-0 Yes 37.5mg Take 37.5 Univers 37.5 mg 7-06 mg by ity of capsule 18:26: mouth [place] 16 every Medical morning. Branch traZODone 2020-0 Yes 50mg Take 50 mg [place] 50 mg 7-06 by mouth ity of tablet 18:26: at [place] [address] bedtime. Medical Branch phentermine 2020-0 Yes 37.5mg Take 37.5 Univers 37.5 mg 7-06 mg by ity of capsule 18:26: mouth [place] 16 every Medical morning. Branch traZODone 2020-0 Yes 50mg Take 50 mg [place] 50 mg 7-06 by mouth ity of tablet 18:26: at [place] [address] bedtime. Medical Branch zolpidem 2020-0 Yes 5mg Take 5 mg Univ ers (AMBIEN) 5 6-25 by mouth ity o f mg tablet 18:27: at bedtime [place] 13 as needed Medical for Branch Insomnia. lisinopril 2020-0 Yes 20mg Take 20 mg U nivers (PRINIVIL,Z 6-25 by mouth ity of ESTRIL) 20 18:27: daily. [place] mg tablet 13 Medical Branch metFORMIN 2020-0 Yes 500mg Take 500 Uni vers (GLUCOPHAGE 6-25 mg by ity of ) 500 mg 18:27: mouth [place] tablet 13 daily. Medical Branch amitriptyli 2020-0 Yes 50mg Take 50 mg Univers ne (ELAVIL) 6-25 by mouth ity of 50 mg 18:27: at [place] tablet 13 bedtime. Medical Branch pantoprazol 2020-0 Yes 40mg Take 40 mg Univers e 6-25 by mouth ity of (PROTONIX) 18:27: daily. [place] 40 mg EC 13 Medical tablet Branch metoprolol 2020-0 Yes 25mg Take 25 mg U nivers tartrate 6-25 by mouth 2 ity o f (LOPRESSOR) 18:27: (two) [place] 25 mg 13 times Medical tablet daily. Branch phentermine 2020-0 Yes 37.5mg Take 37.5 Univers 37.5 mg 6-25 mg by ity of capsule 18:27: mouth [place] 13 every Medical morning. Branch traZODone 2020-0 Yes 50mg Take 50 mg [place] 50 mg 6-25 by mouth ity of tablet 18:27: at [place] 13 bedtime. Medical Branch busPIRone 2020-0 Yes 10mg Take 10 mg [place] 10 mg 6-25 by mouth ity of tablet 18:27: as needed. [place] 13 Medical Branch topiramate 2020-0 Yes 25mg Take 25 mg U nivers 25 mg 6-25 by mouth. ity of tablet 18:27: 13 Medical Branch zolpidem 2020-0 Yes 5mg Take 5 mg Univ ers (AMBIEN) 5 6-25 by mouth ity o f mg tablet 18:27: at bedtime [place] 13 as needed Medical for Branch Insomnia. lisinopril 2020-0 Yes 20mg Take 20 mg U nivers (PRINIVIL,Z 6-25 by mouth ity of ESTRIL) 20 18:27: daily. [place] mg tablet 13 Medical Branch metFORMIN 2020-0 Yes 500mg Take 500 Uni vers (GLUCOPHAGE 6-25 mg by ity of ) 500 mg 18:27: mouth [place] tablet 13 daily. Medical Branch amitriptyli 2020-0 Yes 50mg Take 50 mg Univers ne (ELAVIL) 6-25 by mouth ity of 50 mg 18:27: at [place] tablet 13 bedtime. Medical Branch pantoprazol 2020-0 Yes 40mg Take 40 mg Univers e 6-25 by mouth ity of (PROTONIX) 18:27: daily. [place] 40 mg EC 13 Medical tablet Branch metoprolol 2020-0 Yes 25mg Take 25 mg U nivers tartrate 6-25 by mouth 2 ity o f (LOPRESSOR) 18:27: (two) [place] 25 mg 13 times Medical tablet daily. Branch phentermine 2020-0 Yes 37.5mg Take 37.5 Univers 37.5 mg 6-25 mg by ity of capsule 18:27: mouth [place] 13 every Medical morning. Branch traZODone 2020-0 Yes 50mg Take 50 mg [place] 50 mg 6-25 by mouth ity of tablet 18:27: at [place] 13 bedtime. Medical Branch busPIRone 2020-0 Yes 10mg Take 10 mg [place] 10 mg 6-25 by mouth ity of tablet 18:27: as needed. [place] [address] Medical Branch topiramate 2020-0 Yes 25mg Take 25 mg U nivers 25 mg 6-25 by mouth. ity of tablet 18:27: [place] [address] Medical Branch HYDROcodone 2020-0 Yes 1{tbl} 1 tablet, Univers -acetaminop 6-25 Oral, PRN, it y of hen (NORCO 17:07: 1 dose, [place] 5) 5-325 mg 51 Starting Medi ami tablet 1 [facility] Branch tablet 09/15/19 at 1207, Until Discontinu ed, Routine, Pain (scale 4-6), DSU Recovery ibuprofen 2020-0 Yes 800mg 800 mg, Univ ers (IBU) 6-25 Oral, PRN, ity of tablet 800 17:07: 1 dose, [place] mg 51 Starting Medical [facility] Branch 09/15/19 at 1207, Until Discontinu ed, Routine, Pain (scale 1-3), DSU Recovery HYDROmorpho 2020-0 Yes .2mg 0.2 mg, Uni vers ne 6-25 Slow IV ity of (DILAUDID) 17:07: Push, [place] injection 47 Q5MIN PRN, Medi ami 0.2 mg 10 doses, Branch Starting [facility] 09/15/19 at 1207, Until Discontinu ed, Routine, Pain (scale 7-10), PACU
Us e approved by (Faculty): PACU USE -ANESTHESI A SERVICE-HY DROMORPHON E INJECTIONS FENTanyl PF 2020-0 Yes 25ug 25 mcg, Uni vers (SUBLIMAZE 6-25 Slow IV ity of (PF)) 17:07: Push, [place] injection 47 Q5MIN PRN, Medi ami 25 mcg 4 doses, Branch Starting [facility] 09/15/19 at 1207, Until Discontinu ed, Routine, Pain (scale 4-6), PACU ondansetron 2019-0 Yes 4mg 4 mg, Slow Univers (ZOFRAN 6-25 IV Push, ity of (PF)) 17:07: PRN, 1 [place] injection 4 47 dose, Medical mg Starting Branch [facility] 09/15/19 at 1207, Until Discontinu ed, Routine, Nausea and Vomiting (N/V), PACU hydralAZINE 2019-0 Yes 5mg 5 mg, Unive rs (APRESOLINE 6-25 Intravenou it y of ) injection 15:00: s, Q15MIN [place] 5 mg 01 PRN, 4 Medical doses, Branch Starting [facility] 09/15/19 at 1000, Until Discontinu ed, Routine, Hypertensi on, SBP >160 or DBP >100 water for 2020-0 Yes PRN, Univers irrigation 6-25 Starting ity o f irrigation 14:17: [facility] [place] [facility] solution 09/15/19 at Medic al 0917, Branch Until Discontinu ed, Routine, Intra-op bupivacaine 2020-0 Yes PRN, Univer s (preserv 6-25 Starting ity of free) 0.5% 14:07: [facility] [place] [facility] (SENSORCAIN 00 09/15/19 at [place] d[place] E [facility]) 0.5 0907, Branch % (5 mg/mL) Intra-op 30 mL, NaCl 0.9% (NS) 30 mL isosulfan 2020-0 Yes PRN, Univers blue 6-25 Starting ity of (LYMPHAZURI 13:57: [facility] [place] [facility] N) 1 % 00 09/15/19 at Medical injection 0857, Branch Until Discontinu ed, Routine, Intra-op [place] 99m-garland. 2020- No 1mCi 1 Unive rs sulfur 09-14 millicurie ity of colloid 13:45: 13:42 , [place] injection 1 00 :00 Intraderma Me dical millicurie l, ONCE, 1 Bra nch dose, [facility] 09/15/19 at [facility], Routine gabapentin 2019- No 600mg 600 mg, [place] (NEURONTIN) 09-14 Oral, ity of tablet 600 12:45: 13:00 ONCE, 1 [place] mg 00 :00 dose, [facility] Medical 09/15/19 at [place] [address], Routine, DSU Pre-op acetaminoph 2019- No 1000mg 1,000 mg, Univers en 09-14 Oral, ity of (TYLENOL) 12:45: 13:00 ONCE, 1 [place] tablet 00 :00 dose, [facility] Medical 1,000 mg 09/15/19 at [place] [address], Routine, DSU Pre-op celecoxib 2019- No 200mg 200 mg, Uni vers (CELEBREX) 09-14 Oral, ity of capsule 200 12:45: 13:00 ONCE, 1 [place] mg 00 :00 dose, [facility] Medical 09/15/19 at [place] [address], Routine, DSU Pre-op lactated 2019- No 1000mL at 20 [place] [facility] rs ringers IV 09-14- mL/hr, ity of infusion 12:45: 13:01 1,000 mL, [place] 1,000 mL 00 :00 IV Medical Infusion, Branch ONCE, 1 dose, [facility] 09/15/19 at [facility], Routine, DSU Pre-op scopolamine 2019- Yes 1.5mg 1.5 mg, [place] transdermal 25 Topical, ity of (TRANSDERM- 12:42: Administer [place] SCOP) patch 16 over 72 Medic al 1.5 mg Hours, Branch Q72H, First dose on [facility] 09/15/19 at [facility], Until Discontinu ed, Routine, DSU Pre-op HYDROcodone 2019-0 Yes [id number] 1{tbl} Take 1 Univers -acetaminop -25 tablet by ity of hen (NORCO) 00:00: mouth [place] 5-325 mg 00 every 6 Medical tablet (six) Branch hours as needed for Pain (scale 7-10). HYDROcodone 2020-0 Yes [id number] 1{tbl} Take 1 Univers -acetaminop 6-25 tablet by ity of hen (NORCO) 00:00: mouth [place] 5-325 mg 00 every 6 Medical tablet (six) Branch hours as needed for Pain (scale 7-10). HYDROcodone 2020-0 Yes [id number] 1{tbl} Take 1 Univers -acetaminop 6-25 tablet by ity of hen (NORCO) 00:00: mouth [place] 5-325 mg 00 every 6 Medical tablet (six) Branch hours as needed for Pain (scale 7-10). HYDROcodone 2020-0 Yes [id number] 1{tbl} Take 1 Univers -acetaminop 6-25 tablet by ity of hen (NORCO) 00:00: mouth [place] 5-325 mg 00 every 6 Medical tablet (six) Branch hours as needed for Pain (scale 7-10). HYDROcodone 2020-0 Yes [id number] 1{tbl} Take 1 Univers -acetaminop 6-25 tablet by ity of hen (NORCO) 00:00: mouth [place] 5-325 mg 00 every 6 Medical tablet (six) Branch hours as needed for Pain (scale 7-10). HYDROcodone 2020-0 Yes [id number] 1{tbl} Take 1 Univers -acetaminop 6-25 tablet by ity of hen (NORCO) 00:00: mouth [place] 5-325 mg 00 every 6 Medical tablet (six) Branch hours as needed for Pain (scale 7-10). HYDROcodone 2020-0 Yes [id number] 1{tbl} Take 1 Univers -acetaminop 6-25 tablet by ity of hen (NORCO) 00:00: mouth [place] 5-325 mg 00 every 6 Medical tablet (six) Branch hours as needed for Pain (scale 7-10). HYDROcodone 2020-0 Yes [id number] 1{tbl} Take 1 [facility] -acetaminop 6-25 tablet by [facility] (NORCO) 00:00: mouth [place] 5-325 mg 00 every 6 Medical tablet (six) Branch hours as needed for Pain (scale 7-10). HYDROcodone 2020-0 Yes [id number] 1{tbl} Take 1 [facility] -acetaminop 6-25 tablet by [facility] of hen (NORCO) 00:00: mouth [place] 5-325 mg 00 every 6 Medical tablet (six) Branch hours as needed for Pain (scale 7-10). HYDROcodone 2020-0 Yes [id number] 1{tbl} Take 1 [facility] -acetaminop 6-25 tablet by [facility] of hen (NORCO) 00:00: mouth [place] 5-325 mg 00 every 6 Medical tablet (six) Branch hours as needed for Pain (scale 7-10). HYDROcodone 2020-0 Yes [id number] 1{tbl} Take 1 [facility] -acetaminop 6-25 tablet by [facility] of hen (NORCO) 00:00: mouth [place] 5-325 mg 00 every 6 Medical tablet (six) Branch hours as needed for Pain (scale 7-10). HYDROcodone 2020-0 Yes [id number] 1{tbl} Take 1 [facility] -acetaminop 6-25 tablet by [facility] of hen (NORCO) 00:00: mouth [place] 5-325 mg 00 every 6 Medical tablet (six) Branch hours as needed for Pain (scale 7-10). HYDROcodone 2020-0 Yes [id number] 1{tbl} Take 1 [facility] -acetaminop 6-25 tablet by [facility] of hen (NORCO) 00:00: mouth [place] 5-325 mg 00 every 6 Medical tablet (six) Branch hours as needed for Pain (scale 7-10). HYDROcodone 2020-0 Yes [id number] 1{tbl} Take 1 [facility] -acetaminop 6-25 tablet by [facility] of hen (NORCO) 00:00: mouth [place] 5-325 mg 00 every 6 Medical tablet (six) Branch hours as needed for Pain (scale 7-10). HYDROcodone 2020-0 Yes [id number] 1{tbl} Take 1 [facility] -acetaminop 6-25 tablet by [facility] of hen (NORCO) 00:00: mouth [place] 5-325 mg 00 every 6 Medical tablet (six) Branch hours as needed for Pain (scale 7-10). HYDROcodone 2020-0 Yes [id number] 1{tbl} Take 1 [facility] -acetaminop 6-25 tablet by [facility] of hen (NORCO) 00:00: mouth [place] 5-325 mg 00 every 6 Medical tablet (six) Branch hours as needed for Pain (scale 7-10). HYDROcodone 2020-0 Yes [id number] 1{tbl} Take 1 [facility] -acetaminop 6-25 tablet by [facility] ([facility]) 00:00: mouth [place] 5-325 mg 00 every 6 Medical tablet (six) Branch hours as needed for Pain (scale 7-10). HYDROcodone 2020-0 Yes [id number] 1{tbl} Take 1 [facility] -acetaminop 6-25 tablet by [facility] ([facility] at Home) 00:00: mouth [place] 5-325 mg 00 every 6 Medical tablet (six) Branch hours as needed for Pain (scale 7-10). HYDROcodone 2020-0 Yes [id number] 1{tbl} Take 1 [facility] -acetaminop 6-25 tablet by [facility] hen ([facility] at Home) 00:00: mouth [place] 5-325 mg 00 every 6 Medical tablet (six) Branch hours as needed for Pain (scale 7-10). HYDROcodone 2020-0 Yes [id number] 1{tbl} Take 1 [facility] -acetaminop 6-25 tablet by [facility] hen ([facility] at Home) 00:00: mouth [place] 5-325 mg 00 every 6 Medical tablet (six) Branch hours as needed for Pain (scale 7-10). HYDROcodone 2020-0 Yes [id number] 1{tbl} Take 1 [facility] -acetaminop 6-25 tablet by [facility] hen ([facility] at Home) 00:00: mouth [place] 5-325 mg 00 every 6 Medical tablet (six) Branch hours as needed for Pain (scale 7-10). zolpidem 2020-0 Yes 5mg Take 5 mg [facility] ers (AMBIEN) 5 6-19 by mouth ity o f mg tablet 21:35: at bedtime [place] 15 as needed Medical for Branch Insomnia. pantoprazol 2020-0 Yes 40mg Take 40 mg [facility] e 6-19 by mouth ity of (PROTONIX) 21:35: daily. [place] 40 mg EC 15 Medical tablet Branch phentermine 2020-0 Yes 37.5mg Take 37.5 [facility] 37.5 mg 6-19 mg by ity of capsule 21:35: mouth [place] 15 every Medical morning. Branch traZODone 2020-0 Yes 50mg Take 50 mg [facility] [place] 50 mg 6-19 by mouth ity of tablet 21:35: at [place] 15 bedtime. Medical Branch topiramate 2020-0 Yes 25mg Take 25 mg [facility] nivers 25 mg 6-19 by mouth. ity of tablet 21:35: [place] 15 Medical Branch zolpidem 2020-0 Yes 5mg Take 5 mg [facility] ers (AMBIEN) 5 6-19 by mouth ity o f mg tablet 21:35: at bedtime [place] 15 as needed Medical for Branch Insomnia. pantoprazol 2020-0 Yes 40mg Take 40 mg [facility] e 6-19 by mouth ity of (PROTONIX) 21:35: daily. [place] 40 mg EC 15 Medical tablet Branch phentermine 2020-0 Yes 37.5mg Take 37.5 [facility] 37.5 mg 6-19 mg by ity of capsule 21:35: mouth [place] 15 every Medical morning. Branch traZODone 2020-0 Yes 50mg Take 50 mg [facility] [place] 50 mg 6-19 by mouth ity of tablet 21:35: at [place] 15 bedtime. Medical Branch topiramate 2020-0 Yes 25mg Take 25 mg U nivers 25 mg 6-19 by mouth. ity of tablet 21:35: [place] 15 Medical Branch lisinopril 2020-0 Yes 20mg Take 20 mg U nivers (PRINIVIL,Z 6-19 by mouth ity of ESTRIL) 20 21:33: daily. [place] mg tablet 58 Medical Branch metFORMIN 2020-0 Yes 500mg Take 500 Uni vers (GLUCOPHAGE 6-19 mg by ity of ) 500 mg 21:33: mouth [place] tablet 58 daily. Medical Branch amitriptyli 2020-0 Yes 50mg Take 50 mg [facility] ne (ELAVIL) 6-19 by mouth ity of 50 mg 21:33: at [place] tablet 58 bedtime. Medical Branch metoprolol 2020-0 Yes 25mg Take 25 mg U nivers tartrate 6-19 by mouth 2 ity o f (LOPRESSOR) 21:33: (two) [place] 25 mg 58 times Medical tablet daily. Branch busPIRone 2020-0 Yes 10mg Take 10 mg [facility] [place] 10 mg 6-19 by mouth ity of tablet 21:33: as needed. [place] [address] Medical Branch lisinopril 2020-0 Yes 20mg Take 20 mg U nivers (PRINIVIL,Z 6-19 by mouth ity of ESTRIL) 20 21:33: daily. [place] mg tablet 58 Medical Branch metFORMIN 2020-0 Yes 500mg Take 500 Uni vers (GLUCOPHAGE 6-19 mg by ity of ) 500 mg 21:33: mouth [place] tablet 58 daily. Medical Branch amitriptyli 2020-0 Yes 50mg Take 50 mg [facility] ne (ELAVIL) 6-19 by mouth ity of 50 mg 21:33: at [place] tablet 58 bedtime. Medical Branch metoprolol 2020-0 Yes 25mg Take 25 mg U nivers tartrate 6-19 by mouth 2 ity o f (LOPRESSOR) 21:33: (two) [place] 25 mg 58 times Medical tablet daily. Branch busPIRone 2020-0 Yes 10mg Take 10 mg [facility] [place] 10 mg 6-19 by mouth ity of tablet 21:33: as needed. [place] [address] Medical Branch topiramate 2020-0 Yes 25mg Take 25 mg U nivers 25 mg 6-10 by mouth. ity of tablet 18:46: [place] [address] Medical Branch topiramate 2020-0 Yes 25mg Take 25 mg U nivers 25 mg 6-10 by mouth. ity of tablet 18:46: [place] [address] Medical Branch topiramate 2020-0 Yes 25mg Take 25 mg U nivers 25 mg 6-10 by mouth. ity of tablet 18:46: [place] [address] Medical Branch topiramate 2020-0 Yes 25mg Take 25 mg U nivers 25 mg 6-10 by mouth. ity of tablet 18:46: [place] [address] Medical Branch topiramate 2020-0 Yes 25mg Take 25 mg U nivers 25 mg 6-10 by mouth. ity of tablet 18:46: [place] [address] Medical Branch zolpidem 2020-0 Yes 5mg Take 5 mg [facility] ers (AMBIEN) 5 6-10 by mouth ity o f mg tablet 18:44: at bedtime [place] 57 as needed Medical for Branch Insomnia. metFORMIN 2020-0 Yes 500mg Take 500 [facility] vers (GLUCOPHAGE 6-10 mg by ity of ) 500 mg 18:44: mouth [place] tablet 57 daily. Medical Branch amitriptyli 2020-0 Yes 50mg Take 50 mg [facility] ne (ELAVIL) 6-10 by mouth ity of 50 mg 18:44: at [place] tablet 57 bedtime. Medical Branch pantoprazol 2020-0 Yes 40mg Take 40 mg [facility] e 6-10 by mouth ity of (PROTONIX) 18:44: daily. [place] 40 mg EC 57 Medical tablet Branch metoprolol 2020-0 Yes 25mg Take 25 mg U nivers tartrate 6-10 by mouth 2 ity o f (LOPRESSOR) 18:44: (two) [place] 25 mg 57 times Medical tablet daily. Branch phentermine 2020-0 Yes 37.5mg Take 37.5 [facility] 37.5 mg 6-10 mg by ity of capsule 18:44: mouth [place] 57 every Medical morning. Branch traZODone 2020-0 Yes 50mg Take 50 mg [facility] [place] 50 mg 6-10 by mouth ity of tablet 18:44: at [place] 57 bedtime. Medical Branch busPIRone 2020-0 Yes 10mg Take 10 mg [facility] [place] 10 mg 6-10 by mouth ity of tablet 18:44: as needed. [place] [facility] zolpidem 2020-0 Yes 5mg Take 5 mg [facility] ers (AMBIEN) 5 6-10 by mouth ity o f mg tablet 18:44: at bedtime [place] 57 as needed Medical for Branch Insomnia. metFORMIN 2020-0 Yes 500mg Take 500 [facility] vers (GLUCOPHAGE 6-10 mg by ity of ) 500 mg 18:44: mouth [place] tablet 57 daily. Medical Branch amitriptyli 2020-0 Yes 50mg Take 50 mg [facility] ne (ELAVIL) 6-10 by mouth ity of 50 mg 18:44: at [place] tablet 57 bedtime. Medical Branch pantoprazol 2020-0 Yes 40mg Take 40 mg [facility] e 6-10 by mouth ity of (PROTONIX) 18:44: daily. [place] 40 mg EC 57 Medical tablet Branch metoprolol 2020-0 Yes 25mg Take 25 mg U nivers tartrate 6-10 by mouth 2 ity o f (LOPRESSOR) 18:44: (two) [place] 25 mg 57 times Medical tablet daily. Branch phentermine 2020-0 Yes 37.5mg Take 37.5 [facility] 37.5 mg 6-10 mg by ity of capsule 18:44: mouth [place] 57 every Medical morning. Branch traZODone 2020-0 Yes 50mg Take 50 mg [place] 50 mg 6-10 by mouth ity of tablet 18:44: at [place] 57 bedtime. Medical Branch busPIRone 2020-0 Yes 10mg Take 10 mg [place] 10 mg 6-10 by mouth ity of tablet 18:44: as needed. [place] [address] Medical Branch zolpidem 2020-0 Yes 5mg Take 5 mg [facility] ers (AMBIEN) 5 6-10 by mouth ity o f mg tablet 18:44: at bedtime [place] 57 as needed Medical for Branch Insomnia. metFORMIN 2020-0 Yes 500mg Take 500 [facility] vers (GLUCOPHAGE 6-10 mg by ity of ) 500 mg 18:44: mouth [place] tablet 57 daily. Medical Branch amitriptyli 2020-0 Yes 50mg Take 50 mg [facility] ne (ELAVIL) 6-10 by mouth ity of 50 mg 18:44: at [place] tablet 57 bedtime. Medical Branch pantoprazol 2020-0 Yes 40mg Take 40 mg [facility] e 6-10 by mouth ity of (PROTONIX) 18:44: daily. [place] 40 mg EC 57 Medical tablet Branch metoprolol 2020-0 Yes 25mg Take 25 mg U nivers tartrate 6-10 by mouth 2 ity o f (LOPRESSOR) 18:44: (two) [place] 25 mg 57 times Medical tablet daily. Branch phentermine 2020-0 Yes 37.5mg Take 37.5 [facility] 37.5 mg 6-10 mg by ity of capsule 18:44: mouth [place] 57 every Medical morning. Branch traZODone 2020-0 Yes 50mg Take 50 mg [place] 50 mg 6-10 by mouth ity of tablet 18:44: at [place] 57 bedtime. Medical Branch busPIRone 2020-0 Yes 10mg Take 10 mg [place] 10 mg 6-10 by mouth ity of tablet 18:44: as needed. [place] [address] Medical Branch zolpidem 2020-0 Yes 5mg Take 5 mg [facility] ers (AMBIEN) 5 6-10 by mouth ity o f mg tablet 18:44: at bedtime [place] 57 as needed Medical for Branch Insomnia. metFORMIN 2020-0 Yes 500mg Take 500 Uni vers (GLUCOPHAGE 6-10 mg by ity of ) 500 mg 18:44: mouth [place] tablet 57 daily. Medical Branch amitriptyli 2020-0 Yes 50mg Take 50 mg [facility] ne (ELAVIL) 6-10 by mouth ity of 50 mg 18:44: at [place] tablet 57 bedtime. Medical Branch pantoprazol 2020-0 Yes 40mg Take 40 mg [facility] e 6-10 by mouth ity of (PROTONIX) 18:44: daily. [place] 40 mg EC 57 Medical tablet Branch metoprolol 2020-0 Yes 25mg Take 25 mg U nivers tartrate 6-10 by mouth 2 ity o f (LOPRESSOR) 18:44: (two) [place] 25 mg 57 times Medical tablet daily. Branch phentermine 2020-0 Yes 37.5mg Take 37.5 [facility] 37.5 mg 6-10 mg by ity of capsule 18:44: mouth [place] 57 every Medical morning. Branch traZODone 2020-0 Yes 50mg Take 50 mg [place] 50 mg 6-10 by mouth ity of tablet 18:44: at [place] 57 bedtime. Medical Branch busPIRone 2020-0 Yes 10mg Take 10 mg [place] 10 mg 6-10 by mouth ity of tablet 18:44: as needed. [place] 57 Medical Branch zolpidem 2020-0 Yes 5mg Take 5 mg [facility] ers (AMBIEN) 5 6-10 by mouth ity o f mg tablet 18:44: at bedtime [place] 57 as needed Medical for Branch Insomnia. metFORMIN 2020-0 Yes 500mg Take 500 Uni vers (GLUCOPHAGE 6-10 mg by ity of ) 500 mg 18:44: mouth [place] tablet 57 daily. Medical Branch amitriptyli 2020-0 Yes 50mg Take 50 mg [facility] ne (ELAVIL) 6-10 by mouth ity of 50 mg 18:44: at [place] tablet 57 bedtime. Medical Branch pantoprazol 2020-0 Yes 40mg Take 40 mg [facility] e 6-10 by mouth ity of (PROTONIX) 18:44: daily. [place] 40 mg EC 57 Medical tablet Branch metoprolol 2020-0 Yes 25mg Take 25 mg U nivers tartrate 6-10 by mouth 2 ity o f (LOPRESSOR) 18:44: (two) [place] 25 mg 57 times Medical tablet daily. Branch phentermine 2020-0 Yes 37.5mg Take 37.5 [facility] 37.5 mg 6-10 mg by ity of capsule 18:44: mouth [place] 57 every Medical morning. Branch traZODone 2020-0 Yes 50mg Take 50 mg [place] 50 mg 6-10 by mouth ity of tablet 18:44: at [place] 57 bedtime. Medical Branch busPIRone 2020-0 Yes 10mg Take 10 mg [place] 10 mg 6-10 by mouth ity of tablet 18:44: as needed. [place] 57 Medical Branch lisinopril 2020-0 Yes 20mg Take 20 mg U nivers (PRINIVIL,Z 6-10 by mouth ity of ESTRIL) 20 18:40: daily. [place] mg tablet 15 Medical Branch lisinopril 2020-0 Yes 20mg Take 20 mg U nivers (PRINIVIL,Z 6-10 by mouth ity of ESTRIL) 20 18:40: daily. [place] mg tablet 15 Medical Branch lisinopril 2020-0 Yes 20mg Take 20 mg U nivers (PRINIVIL,Z 6-10 by mouth ity of ESTRIL) 20 18:40: daily. [place] mg tablet 15 Medical Branch lisinopril 2020-0 Yes 20mg Take 20 mg U nivers (PRINIVIL,Z 6-10 by mouth ity of ESTRIL) 20 18:40: daily. [place] mg tablet 15 Medical Branch lisinopril 2020-0 Yes 20mg Take 20 mg U nivers (PRINIVIL,Z 6-10 by mouth ity of ESTRIL) 20 18:40: daily. [place] mg tablet 15 Medical Branch BusPIRone BusPIRone 2020-0 Yes Reema [address] [facility] 6-10 [facility] busPIRone 2020-0 Yes as needed. [place] 7.5 mg 6-10 ity of tablet 00:00: [place] [facility] busPIRone 2020-0 Yes as needed. [place] 7.5 mg 6-10 ity of tablet 00:00: [place] [facility] busPIRone 2020-0 Yes as needed. [place] 7.5 mg 6-10 ity of tablet 00:00: [place] [facility] busPIRone 2020-0 Yes as needed. [place] 7.5 mg 6-10 ity of tablet 00:00: [place] [facility] busPIRone 2020-0 Yes as needed. [place] 7.5 mg 6-10 ity of tablet 00:00: [place] [facility] busPIRone 2020-0 Yes as needed. [place] 7.5 mg 6-10 ity of tablet 00:00: [place] 00 Medical Branch busPIRone 2020-0 Yes as needed. [place] 7.5 mg 6-10 ity of tablet 00:00: 00 Medical Branch busPIRone 2020-0 Yes as needed. [place] 7.5 mg 6-10 ity of tablet 00:00: 00 Medical Branch busPIRone 2020-0 Yes as needed. [place] 7.5 mg 6-10 ity of tablet 00:00: 00 Medical Branch busPIRone 2020-0 Yes as needed. [place] 7.5 mg 6-10 ity of tablet 00:00: 00 Medical Branch busPIRone 2020-0 Yes as needed. [place] 7.5 mg 6-10 ity of tablet 00:00: 00 Medical Branch busPIRone 2020-0 Yes as needed. [place] 7.5 mg 6-10 ity of tablet 00:00: 00 Medical Branch busPIRone 2020-0 Yes as needed. [place] 7.5 mg 6-10 ity of tablet 00:00: 00 Medical Branch busPIRone 2020-0 Yes as needed. [place] 7.5 mg 6-10 ity of tablet 00:00: 00 Medical Branch busPIRone 2020-0 Yes as needed. [place] 7.5 mg 6-10 ity of tablet 00:00: 00 Medical Branch busPIRone 2020-0 Yes as needed. [place] 7.5 mg 6-10 ity of tablet 00:00: 00 [facility] Branch busPIRone 2020-0 Yes as needed. [place] 7.5 mg 6-10 ity of tablet 00:00: 00 Medical Branch busPIRone 2020-0 Yes as needed. [place] 7.5 mg 6-10 ity of tablet 00:00: 00 [facility] Branch busPIRone 2020-0 Yes as needed. [place] 7.5 mg 6-10 ity of tablet 00:00: 00 [facility] Branch busPIRone 2020-0 Yes as needed. [place] 7.5 mg 6-10 ity of tablet 00:00: 00 [facility] Branch busPIRone 2020-0 Yes as needed. [place] 7.5 mg 6-10 ity of tablet 00:00: [place] 00 Medical Branch busPIRone 2020-0 Yes as needed. [place] 7.5 mg 6-10 ity of tablet 00:00: [place] [facility] busPIRone 2020-0 Yes as needed. [place] 7.5 mg 6-10 ity of tablet 00:00: [place] [facility] busPIRone 2020-0 Yes as needed. [place] 7.5 mg 6-10 ity of tablet 00:00: [place] [facility] amLODIPine 2020-0 Yes 5mg Take 5 mg MD (NORVASC) 5 4-26 by mouth [facility] mg tablet 00:00: daily. 00 amLODIPine 2020-0 Yes TK 1 T PO [place] 5 mg tablet 4-26 ONCE A DAY it y of 00:00: [place] [facility] amLODIPine 2020-0 Yes TK 1 T PO [place] 5 mg tablet 4-26 ONCE A DAY it y of 00:00: [place] [facility] amLODIPine 2020-0 Yes TK 1 T PO [place] 5 mg tablet 4-26 ONCE A DAY it y of 00:00: [place] [facility] amLODIPine 2020-0 Yes TK 1 T PO [place] 5 mg tablet 4-26 ONCE A DAY it y of 00:00: [place] [facility] amLODIPine 2020-0 Yes TK 1 T PO [place] 5 mg tablet 4-26 ONCE A DAY it y of 00:00: [place] [facility] amLODIPine 2020-0 Yes TK 1 T PO [place] 5 mg tablet 4-26 ONCE A DAY it y of 00:00: [place] [facility] amLODIPine 2020-0 Yes TK 1 T PO [place] 5 mg tablet 4-26 ONCE A DAY it y of 00:00: [place] [facility] amLODIPine 2020-0 Yes TK 1 T PO [place] 5 mg tablet 4-26 ONCE A DAY it y of 00:00: [place] [facility] amLODIPine 2020-0 Yes TK 1 T PO [place] 5 mg tablet 4-26 ONCE A DAY it y of 00:00: [place] [facility] amLODIPine 2020-0 Yes TK 1 T PO [place] 5 mg tablet 4-26 ONCE A DAY it y of 00:00: [place] [facility] amLODIPine 2020-0 Yes TK 1 T PO [place] 5 mg tablet 4-26 ONCE A DAY it y of 00:00: [place] 00 Medical Branch amLODIPine 2020-0 Yes TK 1 T PO [place] 5 mg tablet 4-26 ONCE A DAY it y of 00:00: [place] [facility] amLODIPine 2020-0 Yes TK 1 T PO [place] 5 mg tablet 4-26 ONCE A DAY it y of 00:00: [place] [facility] amLODIPine 2020-0 Yes TK 1 T PO [place] 5 mg tablet 4-26 ONCE A DAY it y of 00:00: [place] [facility] amLODIPine 2020-0 Yes TK 1 T PO [place] 5 mg tablet 4-26 ONCE A DAY it y of 00:00: [place] [facility] amLODIPine 2020-0 Yes TK 1 T PO [place] 5 mg tablet 4-26 ONCE A DAY it y of 00:00: [place] [facility] amLODIPine 2020-0 Yes TK 1 T PO [place] 5 mg tablet 4-26 ONCE A DAY it y of 00:00: [place] [facility] amLODIPine 2020-0 Yes TK 1 T PO [place] 5 mg tablet 4-26 ONCE A DAY it y of 00:00: [place] [facility] amLODIPine 2020-0 Yes TK 1 T PO [place] 5 mg tablet 4-26 ONCE A DAY it y of 00:00: [place] [facility] amLODIPine 2020-0 Yes TK 1 T PO [place] 5 mg tablet 4-26 ONCE A DAY it y of 00:00: [place] [facility] amLODIPine 2020-0 Yes TK 1 T PO [place] 5 mg tablet 4-26 ONCE A DAY it y of 00:00: [place] [facility] amLODIPine 2020-0 Yes TK 1 T PO [place] 5 mg tablet 4-26 ONCE A DAY it y of 00:00: [place] [facility] amLODIPine 2020-0 Yes TK 1 T PO [place] 5 mg tablet 4-26 ONCE A DAY it y of 00:00: [place] [facility] amLODIPine 2020-0 Yes TK 1 T PO [place] 5 mg tablet 4-26 ONCE A DAY it y of 00:00: [place] [facility] metoprolol 2020-0 Yes 25mg Take 25 mg M D tartrate 2-18 by mouth [place] (LOPRESSOR) 00:00: twice n 25 mg 00 daily. tablet Simvastatin Simvastatin 2020-0 Yes Reema [address] [facility] 2[facility] Crestor Crestor Yes [facility] [address] [facility] [address] [facility] Guilherme Vanegas Yes Reema [address] [facility] - [facility] for [facility] nausea[facility]vom l [facility] Imitrex Imitrex Yes Re[facility] as [facility] Wellbutrin Wellbutrin Yes [place] [address] [facility] XL XL 4-20 [facility] amitriptyli 2014-03 Yes 50mg Take 50 mg [facility] ne (ELAVIL) 1-11 by mouth ity of 50 mg 21:45: at [place] tablet 32 bedtime. Medical Branch pantoprazol 2014-03 Yes 40mg Take 40 mg [facility] e 1-11 by mouth ity of (PROTONIX) 21:45: daily. [place] 40 mg EC 32 Medical tablet Branch metoprolol 2014-03 Yes 25mg Take 25 mg U nivers tartrate 1-11 by mouth 2 ity o f (LOPRESSOR) 21:45: (two) [place] 25 mg 32 times Medical tablet daily. Branch zolpidem 2014-03 Yes 5mg Take 5 mg Univ ers (AMBIEN) 5 1-11 by mouth ity o f mg tablet 21:45: at bedtime [place] 32 as needed Medical for Branch Insomnia. amitriptyli 2014-03 Yes 50mg Take 50 mg [facility] ne (ELAVIL) 1-11 by mouth ity of 50 mg 21:45: at [place] tablet 32 bedtime. Medical Branch pantoprazol 2014-03 Yes 40mg Take 40 mg [facility] e 1-11 by mouth ity of (PROTONIX) 21:45: daily. [place] 40 mg EC 32 Medical tablet Branch metoprolol 2014-03 Yes 25mg Take 25 mg U nivers tartrate 1-11 by mouth 2 ity o f (LOPRESSOR) 21:45: (two) [place] 25 mg 32 times Medical tablet daily. Branch zolpidem 2014-03 Yes 5mg Take 5 mg [facility] ers (AMBIEN) 5 1-11 by mouth ity o f mg tablet 21:45: at bedtime [place] 32 as needed Medical for Branch Insomnia. amitriptyli 2014-03 Yes 50mg Take 50 mg [facility] ne (ELAVIL) 1-11 by mouth ity of 50 mg 21:45: at [place] tablet 32 bedtime. Medical Branch pantoprazol 2014-03 Yes 40mg Take 40 mg [facility] e 1-11 by mouth ity of (PROTONIX) 21:45: daily. [place] 40 mg EC 32 Medical tablet Branch metoprolol 2014-03 Yes 25mg Take 25 mg U nivers tartrate 1-11 by mouth 2 ity o f (LOPRESSOR) 21:45: (two) [place] 25 mg 32 times Medical tablet daily. Branch zolpidem 2014-03 Yes 5mg Take 5 mg [facility] ers (AMBIEN) 5 1-11 by mouth ity o f mg tablet 21:45: at bedtime [place] 32 as needed Medical for Branch Insomnia. amitriptyli 2014-03 Yes 50mg Take 50 mg [facility] ne (ELAVIL) 1-11 by mouth ity of 50 mg 21:45: at [place] tablet 32 bedtime. Medical Branch pantoprazol 2014-03 Yes 40mg Take 40 mg [facility] e 1-11 by mouth ity of (PROTONIX) 21:45: daily. [place] 40 mg EC 32 Medical tablet Branch metoprolol 2014-03 Yes 25mg Take 25 mg U nivers tartrate 1-11 by mouth 2 ity o f (LOPRESSOR) 21:45: (two) [place] 25 mg 32 times Medical tablet daily. Branch zolpidem 2014-03 Yes 5mg Take 5 mg [facility] ers (AMBIEN) 5 1-11 by mouth ity o f mg tablet 21:45: at bedtime [place] 32 as needed Medical for Branch Insomnia. amitriptyli 2014-03 Yes 50mg Take 50 mg [facility] ne (ELAVIL) 1-11 by mouth ity of 50 mg 21:45: at [place] tablet 32 bedtime. Medical Branch pantoprazol 2014-03 Yes 40mg Take 40 mg [facility] e 1-11 by mouth ity of (PROTONIX) 21:45: daily. [place] 40 mg EC 32 Medical tablet Branch metoprolol 2014-03 Yes 25mg Take 25 mg U nivers tartrate 1-11 by mouth 2 ity o f (LOPRESSOR) 21:45: (two) [place] 25 mg 32 times Medical tablet daily. Branch zolpidem 2014-03 Yes 5mg Take 5 mg Univ ers (AMBIEN) 5 1-11 by mouth ity o f mg tablet 21:45: at bedtime [place] 32 as needed Medical for Branch Insomnia. amitriptyli 2014-03 Yes 50mg Take 50 mg [facility] ne (ELAVIL) 1-11 by mouth ity of 50 mg 21:45: at [place] tablet 32 bedtime. Medical Branch pantoprazol 2014-03 Yes 40mg Take 40 mg [facility] e 1-11 by mouth ity of (PROTONIX) 21:45: daily. [place] 40 mg EC 32 Medical tablet Branch metoprolol 2014-03 Yes 25mg Take 25 mg U nivers tartrate 1-11 by mouth 2 ity o f (LOPRESSOR) 21:45: (two) [place] 25 mg 32 times Medical tablet daily. Branch zolpidem 2014-03 Yes 5mg Take 5 mg Univ ers (AMBIEN) 5 1-11 by mouth ity o f mg tablet 21:45: at bedtime [place] 32 as needed Medical for Branch Insomnia. amitriptyli 2014-03 Yes 50mg Take 50 mg [facility] ne (ELAVIL) 1-11 by mouth ity of 50 mg 21:45: at [place] tablet 32 bedtime. Medical Branch pantoprazol 2014-03 Yes 40mg Take 40 mg [facility] e 1-11 by mouth ity of (PROTONIX) 21:45: daily. [place] 40 mg EC 32 Medical tablet Branch metoprolol 2014-03 Yes 25mg Take 25 mg U nivers tartrate 1-11 by mouth 2 ity o f (LOPRESSOR) 21:45: (two) [place] 25 mg 32 times Medical tablet daily. Branch zolpidem 2014-03 Yes 5mg Take 5 mg Univ ers (AMBIEN) 5 1-11 by mouth ity o f mg tablet 21:45: at bedtime [place] 32 as needed Medical for Branch Insomnia. amitriptyli 2014-03 Yes 50mg Take 50 mg [facility] ne (ELAVIL) 1-11 by mouth ity of 50 mg 21:45: at [place] tablet 32 bedtime. Medical Branch pantoprazol 2014-03 Yes 40mg Take 40 mg [facility] e 1-11 by mouth ity of (PROTONIX) 21:45: daily. [place] 40 mg EC 32 Medical tablet Branch metoprolol 2014-03 Yes 25mg Take 25 mg U nivers tartrate 1-11 by mouth 2 ity o f (LOPRESSOR) 21:45: (two) [place] 25 mg 32 times Medical tablet daily. Branch zolpidem 2014-03 Yes 5mg Take 5 mg Univ ers (AMBIEN) 5 1-11 by mouth ity o f mg tablet 21:45: at bedtime [place] 32 as needed Medical for Branch Insomnia. lisinopril 2014-03 Yes 20mg Take 20 mg U nivers (PRINIVIL,Z 1-11 by mouth ity of ESTRIL) 20 21:45: daily. [place] mg tablet 31 Medical Branch metFORMIN 2014-03 Yes 500mg Take 500 Uni vers (GLUCOPHAGE 1-11 mg by ity of ) 500 mg 21:45: mouth [place] tablet 31 daily. Medical Branch lisinopril 2014-03 Yes 20mg Take 20 mg U nivers (PRINIVIL,Z 1-11 by mouth ity of ESTRIL) 20 21:45: daily. [place] mg tablet 31 Medical Branch metFORMIN 2014-03 Yes 500mg Take 500 Uni vers (GLUCOPHAGE 1-11 mg by ity of ) 500 mg 21:45: mouth [place] tablet 31 daily. Medical Branch lisinopril 2014-03 Yes 20mg Take 20 mg U nivers (PRINIVIL,Z 1-11 by mouth ity of ESTRIL) 20 21:45: daily. [place] mg tablet 31 Medical Branch metFORMIN 2014-03 Yes 500mg Take 500 Uni vers (GLUCOPHAGE 1-11 mg by ity of ) 500 mg 21:45: mouth [place] tablet 31 daily. Medical Branch lisinopril 2014-03 Yes 20mg Take 20 mg U nivers (PRINIVIL,Z 1-11 by mouth ity of ESTRIL) 20 21:45: daily. [place] mg tablet 31 Medical Branch metFORMIN 2014-03 Yes 500mg Take 500 Uni vers (GLUCOPHAGE 1-11 mg by ity of ) 500 mg 21:45: mouth [place] tablet 31 daily. Medical Branch lisinopril 2014-03 Yes 20mg Take 20 mg U nivers (PRINIVIL,Z 1-11 by mouth ity of ESTRIL) 20 21:45: daily. [place] mg tablet 31 Medical [facility] metFORMIN 2014-03 Yes 500mg Take 500 Uni vers (GLUCOPHAGE 1-11 mg by ity of ) 500 mg 21:45: mouth [place] tablet 31 daily. Medical [facility] lisinopril 2014-03 Yes 20mg Take 20 mg U nivers (PRINIVIL,Z 1-11 by mouth ity of ESTRIL) 20 21:45: daily. [place] mg tablet 31 Medical Branch metFORMIN 2014-03 Yes 500mg Take 500 Uni vers (GLUCOPHAGE 1-11 mg by ity of ) 500 mg 21:45: mouth [place] tablet 31 daily. Medical Branch lisinopril 2014-03 Yes 20mg Take 20 mg U nivers (PRINIVIL,Z 1-11 by mouth ity of ESTRIL) 20 21:45: daily. [place] mg tablet 31 [facility] Branch metFORMIN 2014-03 Yes 500mg Take 500 Uni vers (GLUCOPHAGE 1-11 mg by ity of ) 500 mg 21:45: mouth [place] tablet 31 daily. Medical Branch lisinopril 2014-03 Yes 20mg Take 20 mg U nivers (PRINIVIL,Z 1-11 by mouth ity of ESTRIL) 20 21:45: daily. [place] mg tablet 31 Medical Branch metFORMIN 2014-03 Yes 500mg Take 500 Uni vers (GLUCOPHAGE 1-11 mg by ity of ) 500 mg 21:45: mouth [place] tablet 31 daily. Medical Branch clindamycin 2014-03 Yes [id number] 150mg Take 1 Cap Univers (CLEOCIN) 1-11 by mouth 3 ity of 150 mg 00:00: (three) [place] capsule 00 times Medical daily. Branch mupirocin 2014-03 Yes [id number] Apply to Univers (BACTROBAN 1-11 area(s) 3 ity of OINT) 2 % 00:00: (three) [place] ointment 00 times Medical daily. Branch clindamycin 2014-03 Yes [id number] 150mg Take 1 Cap Univers (CLEOCIN) 1-11 by mouth 3 ity of 150 mg 00:00: (three) [place] capsule 00 times Medical daily. Branch mupirocin 2014-03 Yes [id number] Apply to Univers (BACTROBAN 1-11 area(s) 3 ity of OINT) 2 % 00:00: (three) [place] ointment 00 times Medical daily. Branch clindamycin 2014-03 Yes [id number] 150mg Take 1 Cap Univers (CLEOCIN) 1-11 by mouth 3 ity of 150 mg 00:00: (three) [place] capsule 00 times Medical daily. Branch mupirocin 2014-03 Yes [id number] Apply to Univers (BACTROBAN 1-11 area(s) 3 ity of OINT) 2 % 00:00: (three) [place] ointment 00 times Medical daily. Branch clindamycin 2014-03 Yes [id number] 150mg Take 1 Cap Univers (CLEOCIN) 1-11 by mouth 3 ity of 150 mg 00:00: (three) [place] capsule 00 times Medical daily. Branch mupirocin 2014-03 Yes [id number] Apply to Univers (BACTROBAN 1-11 area(s) 3 ity of OINT) 2 % 00:00: (three) [place] ointment 00 times Medical daily. Branch clindamycin 2014-03 Yes [id number] 150mg Take 1 Cap Univers (CLEOCIN) 1-11 by mouth 3 ity of 150 mg 00:00: (three) [place] capsule 00 times Medical daily. Home mupirocin 2014-03 Yes [id number] Apply to Univers (BACTROBAN 1-11 area(s) 3 ity of OINT) 2 % 00:00: (three) [place] ointment 00 times Medical daily. Branch clindamycin 2014-03 Yes [id number] 150mg Take 1 Cap Univers (CLEOCIN) 1-11 by mouth 3 ity of 150 mg 00:00: (three) [place] capsule 00 times Medical daily. Branch mupirocin 2014-03 Yes [id number] Apply to Univers (BACTROBAN 1-11 area(s) 3 ity of OINT) 2 % 00:00: (three) [place] ointment 00 times Medical daily. Branch clindamycin 2014-03 Yes [id number] 150mg Take 1 Cap Univers (CLEOCIN) 1-11 by mouth 3 ity of 150 mg 00:00: (three) [place] capsule 00 times Medical daily. Branch mupirocin 2014-03 Yes [id number] Apply to Univers (BACTROBAN 1-11 area(s) 3 ity of OINT) 2 % 00:00: (three) [place] ointment 00 times Medical daily. Branch clindamycin 2014-03 Yes [id number] 150mg Take 1 Cap Univers (CLEOCIN) 1-11 by mouth 3 ity of 150 mg 00:00: (three) [place] capsule 00 times Medical daily. Branch mupirocin 2014-03 Yes [id number] Apply to Univers (BACTROBAN 1-11 area(s) 3 ity of OINT) 2 % 00:00: (three) [place] ointment 00 times Medical daily. Branch clindamycin 2014-03 Yes [id number] 150mg Take 1 Cap Univers (CLEOCIN) 1-11 by mouth 3 ity of 150 mg 00:00: (three) [place] capsule 00 times Medical daily. Branch mupirocin 2014-03 Yes [id number] Apply to Univers (BACTROBAN 1-11 area(s) 3 ity of OINT) 2 % 00:00: (three) [place] ointment 00 times Medical daily. Branch clindamycin 2014-03 Yes [id number] 150mg Take 1 Cap Univers (CLEOCIN) 1-11 by mouth 3 ity of 150 mg 00:00: (three) [place] capsule 00 times Medical daily. Branch mupirocin 2014-03 Yes [id number] Apply to Univers (BACTROBAN 1-11 area(s) 3 ity of OINT) 2 % 00:00: (three) [place] ointment 00 times Medical daily. Branch clindamycin 2014-03 Yes [id number] 150mg Take 1 Cap Univers (CLEOCIN) 1-11 by mouth 3 ity of 150 mg 00:00: (three) [place] capsule 00 times Medical daily. Branch mupirocin 2014-03 Yes [id number] Apply to Univers (BACTROBAN 1-11 area(s) 3 ity of OINT) 2 % 00:00: (three) [place] ointment 00 times Medical daily. Branch clindamycin 2014-03 Yes [id number] 150mg Take 1 Cap Univers (CLEOCIN) 1-11 by mouth 3 ity of 150 mg 00:00: (three) [place] capsule 00 times Medical daily. Branch mupirocin 2014-03 Yes [id number] Apply to Univers (BACTROBAN 1-11 area(s) 3 ity of OINT) 2 % 00:00: (three) [place] ointment 00 times Medical daily. Branch clindamycin 2014-03 Yes [id number] 150mg Take 1 Cap Univers (CLEOCIN) 1-11 by mouth 3 ity of 150 mg 00:00: (three) [place] capsule 00 times Medical daily. Branch mupirocin 2014-03 Yes [id number] Apply to Univers (BACTROBAN 11 area(s) 3 ity of OINT) 2 % 00:00: (three) [place] ointment 00 times Medical daily. Branch clindamycin 2014-03 2020- No [id number] 150mg Take 1 Cap Univers (CLEOCIN) 04-02 by mouth 3 ity of 150 mg 00:00: 00:00 (three) [place] capsule 00 :00 times Medical daily. Branch mupirocin 2014-03- No [id number] Apply to Univers (BACTROBAN 04-02 area(s) 3 ity of OINT) 2 % 00:00: 00:00 (three[place] 00 :00 times Medical daily. Branch levothyroxi Yes [id number] 50ug Take 1 Tab Univers ne 7-17 by mouth ity of (SYNTHROID) 00:00: every [place] 50 mcg 00 morning. Medical tablet Branch levothyroxi Yes [id number] 50ug Take 1 Tab Univers ne 7-17 by mouth ity of (SYNTHROID) 00:00: every [place] 50 mcg 00 morning. Medical tablet Branch levothyroxi Yes [id number] 50ug Take 1 Tab Univers ne 7-17 by mouth ity of (SYNTHROID) 00:00: every [place] 50 mcg 00 morning. Medical tablet Branch levothyroxi Yes [id number] 50ug Take 1 Tab Univers ne 7-17 by mouth ity of (SYNTHROID) 00:00: every [place] 50 mcg 00 morning. Medical tablet Branch levothyroxi Yes [id number] 50ug Take 1 Tab Univers ne 7-17 by mouth ity of (SYNTHROID) 00:00: every [place] 50 mcg 00 morning. Medical tablet Branch levothyroxi Yes [id number] 50ug Take 1 Tab Univers ne 7-17 by mouth ity of (SYNTHROID) 00:00: every [place] 50 mcg 00 morning. Medical tablet Branch levothyroxi Yes [id number] 50ug Take 1 Tab Univers ne 7-17 by mouth ity of (SYNTHROID) 00:00: every [place] 50 mcg 00 morning. Medical tablet Branch levothyroxi Yes [id number] 50ug Take 1 Tab Univers ne 7-17 by mouth ity of (SYNTHROID) 00:00: every [place] 50 mcg 00 morning. Medical tablet Branch levothyroxi Yes [id number] 50ug Take 1 Tab Univers ne 7-17 by mouth ity of (SYNTHROID) 00:00: every [place] 50 mcg 00 morning. Medical tablet Branch levothyroxi Yes [id number] 50ug Take 1 Tab Univers ne 7-17 by mouth ity of (SYNTHROID) 00:00: every [place] 50 mcg 00 morning. Medical tablet Branch levothyroxi Yes [id number] 50ug Take 1 Tab Univers ne 7-17 by mouth ity of (SYNTHROID) 00:00: every [place] 50 mcg 00 morning. Medical tablet Branch levothyroxi Yes [id number] 50ug Take 1 Tab Univers ne 7-17 by mouth ity of (SYNTHROID) 00:00: every [place] 50 mcg 00 morning. Medical tablet Branch levothyroxi Yes [id number] 50ug Take 1 Tab Univers ne 7-17 by mouth ity of (SYNTHROID) 00:00: every [place] 50 mcg 00 morning. Medical tablet Branch levothyroxi Yes [id number] 50ug Take 1 Tab Univers ne 7-17 by mouth ity of (SYNTHROID) 00:00: every [place] 50 mcg 00 morning. Medical tablet Branch levothyroxi Yes [id number] 50ug Take 1 Tab Univers ne 7-17 by mouth ity of (SYNTHROID) 00:00: every [place] 50 mcg 00 morning. Medical tablet Branch levothyroxi Yes [id number] 50ug Take 1 Tab Univers ne 7-17 by mouth ity of (SYNTHROID) 00:00: every [place] 50 mcg 00 morning. Medical tablet Branch levothyroxi Yes 50ug Take 50 MD ne 7-17 mcg by Anderso (SYNTHROID, 00:00: mouth n LEVOTHROID) 00 daily. 50 mcg tablet levothyroxi Yes [id number] 50ug Take 1 Tab Univers ne 7-17 by mouth ity of (SYNTHROID) 00:00: every [place] 50 mcg 00 morning. Medical tablet Branch levothyroxi Yes [id number] 50ug Take 1 Tab Univers ne 7-17 by mouth ity of (SYNTHROID) 00:00: every [place] 50 mcg 00 morning. Medical tablet Branch levothyroxi 0 Yes [id number] 50ug Take 1 Tab Univers ne 7-17 by mouth ity of (SYNTHROID) 00:00: every [place] 50 mcg 00 morning. Medical tablet Branch levothyroxi 0 Yes [id number] 50ug Take 1 Tab Univers ne 7-17 by mouth ity of (SYNTHROID) 00:00: every [place] 50 mcg 00 morning. Medical tablet Branch levothyroxi Yes [id number] 50ug Take 1 Tab Univers ne 7-17 by mouth ity of (SYNTHROID) 00:00: every [place] 50 mcg 00 morning. Medical tablet Branch levothyroxi Yes [id number] 50ug Take 1 Tab Univers ne 7-17 by mouth ity of (SYNTHROID) 00:00: every [place] 50 mcg 00 morning. Medical tablet Branch levothyroxi Yes [id number] 50ug Take 1 Tab Univers ne 7-17 by mouth ity of (SYNTHROID) 00:00: every [place] 50 mcg 00 morning. Medical tablet Branch levothyroxi Yes [id number] 50ug Take 1 Tab Univers ne 7-17 by mouth ity of (SYNTHROID) 00:00: every [place] 50 mcg 00 morning. Medical tablet Branch levothyroxi Yes [id number] 50ug Take 1 Tab Univers ne 7-17 by mouth ity of (SYNTHROID) 00:00: every [place] 50 mcg 00 morning. Medical tablet Branch levothyroxi Yes [id number] 50ug Take 1 Tab Univers ne 7-17 by mouth ity of (SYNTHROID) 00:00: every [place] 50 mcg 00 morning. Medical tablet Branch levothyroxi Yes [id number] 50ug Take 1 Tab Univers ne 7-17 by mouth ity of (SYNTHROID) 00:00: every [place] 50 mcg 00 morning. Medical tablet Branch levothyroxi Yes [id number] 50ug Take 1 Tab Univers ne 7-17 by mouth ity of (SYNTHROID) 00:00: every [place] 50 mcg 00 morning. Medical tablet Branch levothyroxi Yes [id number] 50ug Take 1 Tab Univers ne 7-17 by mouth ity of (SYNTHROID) 00:00: every [place] 50 mcg 00 morning. Medical tablet Branch levothyroxi Yes [id number] 50ug Take 1 Tab Univers ne 7-17 by mouth ity of (SYNTHROID) 00:00: every [place] 50 mcg 00 morning. Medical tablet Branch levothyroxi Yes [id number] 50ug Take 1 Tab Univers ne 7-17 by mouth ity of (SYNTHROID) 00:00: every [place] 50 mcg 00 morning. Medical tablet Branch levothyroxi Yes [id number] 50ug Take 1 Tab Univers ne 7-17 by mouth ity of (SYNTHROID) 00:00: every [place] 50 mcg 00 morning. Medical tablet Branch levothyroxi Yes [id number] 50ug Take 1 Tab Univers ne 7-17 by mouth ity of (SYNTHROID) 00:00: every [place] 50 mcg 00 morning. Medical tablet Branch levothyroxi Yes [id number] 50ug Take 1 Tab Univers ne 7-17 by mouth ity of (SYNTHROID) 00:00: every [place] 50 mcg 00 morning. Medical tablet Branch levothyroxi Yes [id number] 50ug Take 1 Tab Univers ne 7-17 by mouth ity of (SYNTHROID) 00:00: every [place] 50 mcg 00 morning. Medical tablet Branch levothyroxi Yes [id number] 50ug Take 1 Tab Univers ne 7-17 by mouth ity of (SYNTHROID) 00:00: every [place] 50 mcg 00 morning. Medical tablet Branch levothyroxi Yes [id number] 50ug Take 1 Tab Univers ne 7-17 by mouth ity of (SYNTHROID) 00:00: every [place] 50 mcg 00 morning. Medical tablet Branch pantoprazol 0 Yes Univer s e 40 mg EC 6-25 ity of tablet 00:00: [place] 00 Medical Branch pantoprazol 0 Yes Univer s e 40 mg EC 6-25 ity of tablet 00:00: [place] 00 Medical Branch pantoprazol 0 2020- No Unive rs e 40 mg EC 6-25 06-25 ity of tablet 00:00: 00:00 [place] 00 :00 Medical Branch pantoprazol 0 2020- No Unive rs e 40 mg EC 6-25 06-25 ity of tablet 00:00: 00:00 [place] 00 :00 Medical Branch amitriptyli 0 Yes as needed. Univers ne 50 mg 5-29 ity of tablet 00:00: Medical Branch amitriptyli Yes as needed. Univers ne 50 mg 5-29 ity of tablet 00:00: Medical Branch amitriptyli 2020- No as needed. Univers ne 50 mg 5-29 06-25 ity of tablet 00:00: 00:00 00 : Medical Branch amitriptyli 2020- No as needed. Univers ne 50 mg 5-29 06-25 ity of tablet 00:00: 00:00 00 :00 Medical Branch metoprolol Yes Univers tartrate 25 5-26 ity of mg tablet 00:00: [facility] metoprolol Yes Univers tartrate 25 5-26 ity of mg tablet 00:00: [facility] Branch metoprolol 2020- No Univer s tartrate 25 5-26 06-25 ity of mg tablet 00:00: 00:00 [place] 00 : Medical Branch metoprolol 2020- No Univer s tartrate 25 5-26 06-25 ity of mg tablet 00:00: 00:00 [place] 00 :00 Medical Branch zolpidem 2012-2020- No 5mg Take 5 mg MD MARY) 5 0-09 09-17 by mouth Ronald rso mg tablet 00:00: 00:00 nightly as n 00 :00 needed. BusPIRone BusPIRone Yes Reema [address] [facility] HCl HCl [facility] Ambien Ambien Yes Reema [address] [facility] [place] at bedtime [facility] Lipitor Lipitor Yes Reema [address] [facility] in evening [facility] Synthroid Synthroid Yes Reema [address] [facility] [place] on an [facility] empty [facility] stomach in l the Outpat[facility] morning ent [facility]ics Norvasc Norvasc Yes Reema [address] [facility] Ultram Ultram Yes Reema [address] [facility] as needed [facility] Gabapentin Gabapentin Yes Reema [address] [facility] before [facility] Lisinopril Lisinopril Yes Reema [address] [facility] Metoprolol Metoprolol Yes Reema [address] [facility] Tartrate Tartrate [place] with food [facility] Metformin Metformin Yes Reema [address] [facility] HCl HCl [place] [facility] Protonix Protonix Yes [facility]ema [address] [facility] Vitamin D3 Vitamin D3 Yes Reema [address] [facility] Amitriptyli Amitriptyli Yes Reema [address] [facility] ne HCl ne HCl [place] at bedtime [facility] Zolpidem Zolpidem Yes Reema [address] Tartrate Tartrate [place] at bedtime [facility] Topamax Topamax Yes Reema [address] [facility] [place] at bedtime [facility] - for [facility] migraines l [facility] HydrOXYzine HydrOXYzine Yes Reema [address] [facility] HCl HCl [place] as needed [facility] Belsomra Belsomra Yes Reema [address] [place] at bedtime [facility] - as needed [facility] Trazodone Trazodone Yes Reema [address] [facility] [address] HCl HCl [place] at bedtime [facility] Pantoprazol Pantoprazol Yes Reema [address] [facility] e Sodium e Sodium [place] Nadja kes - [facility] Immunizations Ordered Immunization Filled Immunization Date Status Commen ts Source Name Name Pfizer SARS-CoV-2 2020-11-09 Completed MD Cardenas rson Vaccination 00:00:00 Pfizer SARS-CoV-2 2020-10-19 Completed MD Cardenas rson Vaccination 00:00:00 Vital Signs Vital Name Observation Time Observation Value Comments Source Systolic blood 2020-08-03 14:46:00 137 mm[Hg] Univer sity of pressure [facility] Diastolic blood 2020-08-03 14:46:00 82 mm[Hg] Unive rsity of pressure [facility] Heart rate 2020-08-03 14:46:00 90 /min [facility] [place] [facility] Body temperature 2020-08-03 14:46:00 37.11 Sri [facility] ers[facility] [place] [facility] Respiratory rate 2020-08-03 14:46:00 18 /min [facility] [place] [facility] Body height 2020-08-03 14:46:00 152.4 cm [facility] [place] [facility] Body weight 2020-08-03 14:46:00 88.905 kg [facility] [place] [facility] BMI 2020-08-03 14:46:00 38.28 kg/m2 [facility] [place] [facility] Oxygen saturation in 2020-08-03 14:46:00 96 /min University of Arterial blood by [facility] Pulse oximetry Branch Systolic blood 2019-10-20 19:00:00 142 mm[Hg] Univer sity of pressure [place] [facility] Diastolic blood 2019-10-20 19:00:00 92 mm[Hg] Unive rsity of pressure [place] [facility] Heart rate 2019-10-20 18:55:00 81 /min [facility] [place] [facility] Respiratory rate 2019-10-20 18:55:00 16 /min Univ ers[facility] [place] [facility] Oxygen saturation in 2019-10-20 18:55:00 96 /min University of Arterial blood by [facility] Pulse oximetry Branch Body temperature 2019-10-20 18:25:00 36.67 Sri [facility] [place] [facility] Body height 2019-10-20 15:11:00 149.9 cm [facility] [place] [facility] Body weight 2019-10-20 15:11:00 86.183 kg [facility] [place] [facility] BMI 2019-10-20 15:11:00 38.38 kg/m2 [facility] [place] [facility] Systolic blood 2019-09-26 18:25:00 150 mm[Hg] Univer sity of pressure [place] [facility] Diastolic blood 2019-09-26 18:25:00 89 mm[Hg] Unive rsity of pressure [place] [facility] Heart rate 2019-09-26 18:25:00 89 /min [facility] [place] [facility] Body temperature 2019-09-26 18:25:00 37.17 Sri [facility] [place] [facility] Respiratory rate 2019-09-26 18:25:00 18 /min [facility] [place] [facility] Body height 2019-09-26 18:25:00 152.4 cm [facility] [place] [facility] Body weight 2019-09-26 18:25:00 87.544 kg [facility] [place] [facility] BMI 2019-09-26 18:25:00 37.69 kg/m2 [facility] [place] [facility] Oxygen saturation in 2019-09-26 18:25:00 98 /min University of Arterial blood by [facility] Pulse oximetry Branch Heart rate 2019-09-15 18:10:00 114 /min [facility] [place] [facility] Oxygen saturation in 2019-09-15 18:10:00 100 /min University of Arterial blood by [facility] Pulse oximetry Branch Systolic blood 2019-09-15 17:50:00 134 mm[Hg] Univer sity of pressure [place] [facility] Diastolic blood 2019-09-15 17:50:00 81 mm[Hg] Unive rsity of pressure [place] [facility] Respiratory rate 2019-09-15 17:50:00 11 /min Univ [facility] [place] [facility] Body temperature 2019-09-15 17:00:00 36.33 Sri [facility] [place] [facility] Body height 2019-09-15 13:06:00 152.4 cm [facility] [place] [facility] Body weight 2019-09-15 13:06:00 81.647 kg [facility] [place] [facility] BMI 2019-09-15 13:06:00 35.15 kg/m2 [facility] [place] [facility] Systolic blood 2019-08-31 18:39:00 158 mm[Hg] Univer sity of pressure [place] [facility] Diastolic blood 2019-08-31 18:39:00 100 mm[Hg] Unive rsity of pressure [place] [facility] Heart rate 2019-08-31 18:38:00 88 /min [facility] [place] [facility] Body temperature 2019-08-31 18:38:00 37.06 Sri [facility] [place] [facility] Respiratory rate 2019-08-31 18:38:00 18 /min Univ [facility] [place] [facility] Body height 2019-08-31 18:38:00 152.4 cm [facility] [place] [facility] Body weight 2019-08-31 18:38:00 87.771 kg [facility] [place] [facility] BMI 2019-08-31 18:38:00 37.79 kg/m2 [facility] [place] [facility] Oxygen saturation in 2019-08-31 18:38:00 97 /min University Arterial blood by [facility] Pulse oximetry Branch Systolic blood 2021-03-06 13:55:50 143 mm[Hg] pressure Diastolic blood 2021-03-06 13:55:50 88 mm[Hg] MD Blossom jacome pressure Heart rate 2021-03-06 13:55:50 77 /min MD Elijah dejesus Body temperature 2021-03-06 13:55:50 36.89 Sri MD Vidal johnson Respiratory rate 2021-03-06 13:55:50 18 /min MD Vidal aroraon Body weight 2021-03-06 13:55:50 97.2 kg MD Elijah dejesus BMI 2021-03-06 13:55:50 44.79 kg/m2 MD Elijah dejesus Oxygen saturation in 2021-03-06 13:55:50 97 /min MD Cody Arterial blood by Pulse oximetry Body height 2020-05-18 16:00:00 147.3 cm MD Elijah dejesus Procedures Procedure Date / Time Performing Clinician Source Performed COMPLETE BLOOD COUNT W/ 2021-03-06 12:59:17 Justin Smith DIFFERENTIAL COMPREHENSIVE METABOLIC 2021-03-06 12:59:17 Justin Smith PANEL MAGNESIUM LEVEL 2021-03-06 12:59:17 Justin Smith MD on PHOSPHORUS LEVEL 2021-03-06 12:59:17 uJstin Smith MD Elijah son LACTATE DEHYDROGENASE 2021-03-06 12:59:17 Justin Smith MD VITAMIN D 25 HYDROXY LEVEL 2021-03-06 12:59:17 Nancy Smith Results CBC 2021-03-06 12:59:17 Justin Smith MD on MANUAL DIFFERENTIAL 2021-03-06 12:59:17 Justin Smith MD GLUCOSE LEVEL 2021-03-06 12:59:17 Justin Smith MD on BLOOD UREA NITROGEN 2021-03-06 12:59:17 Justin Smith MD ELECTROLYTE PANEL 2021-03-06 12:59:17 Justin Smith MD rson SERUM CREATININE 2021-03-06 12:59:17 Justin Smith MD Elijah son .GLOMERULAR FILTRATION 2021-03-06 12:59:17 Justin Smith MD RATE CALCIUM LEVEL TOTAL 2021-03-06 12:59:17 Justin Smith MDson ALBUMIN LEVEL 2021-03-06 12:59:17 Justin Smith MD on ALKALINE PHOSPHATASE 2021-03-06 12:59:17 Justin Smith MD nderson ALANINE AMINOTRANSFERASE 2021-03-06 12:59:17 Justin Smith MD ASPARTATE AMINOTRANSFERASE 2021-03-06 12:59:17 Nancy Smith TOTAL PROTEIN 2021-03-06 12:59:17 Justin Smith MD on FRACTIONATED BILIRUBIN 2021-03-06 12:59:17 Justin Smith MD COMPLETE BLOOD COUNT W/ 2020-12-07 12:00:00 Justin Smith DIFFERENTIAL COMPREHENSIVE METABOLIC 2020-12-07 12:00:00 Justin Smith PANEL MAGNESIUM LEVEL 2020-12-07 12:00:00 Justin Smith MD on PHOSPHORUS LEVEL 2020-12-07 12:00:00 Justin Smith MD Elijah son LACTATE DEHYDROGENASE 2020-12-07 12:00:00 Justin Smith MD VITAMIN D 25 HYDROXY LEVEL 2020-12-07 12:00:00 Nancy Smith Results CBC 2020-12-07 12:00:00 Justin Smith MD on MANUAL DIFFERENTIAL 2020-12-07 12:00:00 Justin Smith MDson GLUCOSE LEVEL 2020-12-07 12:00:00 Justin Smith MD on BLOOD UREA NITROGEN 2020-12-07 12:00:00 Justin Smith MD ELECTROLYTE PANEL 2020-12-07 12:00:00 Justin Smith MD rson SERUM CREATININE 2020-12-07 12:00:00 Justin Smith MD Elijah son .GLOMERULAR FILTRATION 2020-12-07 12:00:00 Justin Smith MD RATE CALCIUM LEVEL TOTAL 2020-12-07 12:00:00 Justin Smith MD derson ALBUMIN LEVEL 2020-12-07 12:00:00 Justin Smith MD on ALKALINE PHOSPHATASE 2020-12-07 12:00:00 Justin Smith MD nderson ALANINE AMINOTRANSFERASE 2020-12-07 12:00:00 Justin Smith MD ASPARTATE AMINOTRANSFERASE 2020-12-07 12:00:00 Nancy Smith TOTAL PROTEIN 2020-12-07 12:00:00 Justin Smith MD on FRACTIONATED BILIRUBIN 2020-12-07 12:00:00 Justin Smith MD NM BONE SCAN WHOLE BODY 2020-08-15 17:04:[address] CHEST ABDOMEN PELVIS W 2020-08-15 16:40:00 Irene Sherman MD CONTRAST COMPLETE BLOOD COUNT W/ 2020-08-15 14:11:00 Irene Sherman MD DIFFERENTIAL COMPREHENSIVE METABOLIC 2020-08-15 14:11:00 Irene Sherman MD PANEL LACTATE DEHYDROGENASE 2020-08-15 14:11:00 Irene Sherman MAGNESIUM LEVEL 2020-08-15 14:11:00 Irene Sherman MD Ronald rson PHOSPHORUS LEVEL 2020-08-15 14:11:00 Irene Sherman MD And erson URIC ACID 2020-08-15 14:11:00 Irene Sherman MD Ronald rson VITAMIN D 25 HYDROXY LEVEL 2020-08-15 14:11:00 Irene Sherman MD Results CBC 2020-08-15 14:11:00 Irene Sherman MD Ronald rson MANUAL DIFFERENTIAL 2020-08-15 14:11:00 Irene Sherman MD GLUCOSE LEVEL 2020-08-15 14:11:00 Irene Sherman MD Ronald rson BLOOD UREA NITROGEN 2020-08-15 14:11:00 Irene Sherman MD ELECTROLYTE PANEL 2020-08-15 14:11:00 Irene Sherman MDson SERUM CREATININE 2020-08-15 14:11:00 Irene Sherman MD And erson .GLOMERULAR FILTRATION 2020-08-15 14:11:00 Irene Sherman MD RATE CALCIUM LEVEL TOTAL 2020-08-15 14:11:00 Irene Sherman MD ALBUMIN LEVEL 2020-08-15 14:11:00 Irene Sherman MD Ronald rson ALKALINE PHOSPHATASE 2020-08-15 14:11:00 Irene Sherman MD ALANINE AMINOTRANSFERASE 2020-08-15 14:11:00 Irene Sherman MD ASPARTATE AMINOTRANSFERASE 2020-08-15 14:11:00 Irene Sherman MD TOTAL PROTEIN 2020-08-15 14:11:00 Irene Sherman MD Ronald rson FRACTIONATED BILIRUBIN 2020-08-15 14:11:00 Irene Sherman MD PATIENT QUESTIONNAIRE 2020-08-03 05:01:00 Doctor Unassigned, [facility] [place] [facility] HC 2019-NCOV COVID-19 2020-05-24 21:43:00 Justin Smith MD DISCLOSURE AND CONSENT, 2020-05-23 06:01:00 Doctor Unassigned, [facility] [place] [facility] PROCEDURES DEXA BONE MINERAL DENSITY 2020-05-18 16:45:00 Justin Smith MD BOTH HIPS AND SPINE COMPLETE BLOOD COUNT W/ 2020-05-18 16:31:00 Justin Smith DIFFERENTIAL COMPREHENSIVE METABOLIC 2020-05-18 16:31:00 Justin Smith PANEL MAGNESIUM LEVEL 2020-05-18 16:31:00 Justin Smithers on PHOSPHORUS LEVEL 2020-05-18 16:31:00 Justin Smith MD Elijah son LACTATE DEHYDROGENASE 2020-05-18 16:31:00 Justin Smith MD VITAMIN D 25 HYDROXY LEVEL 2020-05-18 16:31:00 Nancy Smith Results CBC 2020-05-18 16:31:00 Justin Smith MD on MANUAL DIFFERENTIAL 2020-05-18 16:31:00 Justin Smith MDson GLUCOSE LEVEL 2020-05-18 16:31:00 Justin Smith MD on BLOOD UREA NITROGEN 2020-05-18 16:31:00 Justin Smith MDson ELECTROLYTE PANEL 2020-05-18 16:31:00 Justin Smith MD rson SERUM CREATININE 2020-05-18 16:31:00 Justin Smith MD Elijah son .GLOMERULAR FILTRATION 2020-05-18 16:31:00 Justin Smith MD RATE CALCIUM LEVEL TOTAL 2020-05-18 16:31:00 Justin Smith MD ALBUMIN LEVEL 2020-05-18 16:31:00 Justin Smith MD on ALKALINE PHOSPHATASE 2020-05-18 16:31:00 Justin Smith MD nderson ALANINE AMINOTRANSFERASE 2020-05-18 16:31:00 Justin Smith MD ASPARTATE AMINOTRANSFERASE 2020-05-18 16:31:00 Nancy Smith TOTAL PROTEIN 2020-05-18 16:31:00 Justin Smith MD on FRACTIONATED BILIRUBIN 2020-05-18 16:31:00 Justin Smith MD COMPLETE BLOOD COUNT W/ 2020-04-10 18:52:00 Irene Sherman MD DIFFERENTIAL Results CBC 2020-04-10 18:52:00 Irene Sherman MD rson MANUAL DIFFERENTIAL 2020-04-10 18:52:00 Irene Sherman MD XR CHEST 1 VW 2019-10-20 18:44:27 Uli [facility] [place] TIME OR 2019-10-20 18:27:[address] [facility] (NON-REPORTABLE) [facility] POCT GLUCOSE (AUTOMATED) 2019-10-20 15:08:00 [facility] 2019-10-20 05:01:00 Doctor Kaileessanthony, Uni versity of [facility] [place] [facility] DAY SURGERY - [facility] 2019-10-19 05:01:00 Doctor Kaileessanthony, [facility] [place] [facility] NON-UTMB ORDERS 2019-10-13 05:01:00 Doctor Woods, [facility] [place] [facility] SCANNED LAB RESULTS 2019-10-03 05:01:00 Doctor Chuck, [facility] [place] [facility] FL TIME OR 2019-09-15 15:52:05 [facility] (NON-REPORTABLE) Medical Branch NM INJECTION SENTINEL NODE 2019-09-15 13:44:00 Rae Card Ma luigi [facility] Home POCT GLUCOSE (AUTOMATED) 2019-09-15 13:04:00 Meghann Blakely U [facility] Medical Branch CONSENT/REFUSAL FOR 2019-09-15 12:36:41 Doctor Kaileessanthony, [facility] DIAGNOSIS AND TREATMENT [place] [facility] ASSIGNMENT OF BENEFITS 2019-09-15 12:36:11 Doctor [facility]essanthony, [facility] [place] [facility] SURG[facility] - [facility] 2019-09-15 05:01:00 Doctor Chuck, [facility] [place] [facility] ASSIGNMENT OF BENEFITS 2019-09-13 15:43:50 Doctor Kaileessanthony, [facility] [place] [facility] PATIENT QUESTIONNAIRE 2019-08-31 05:01:00 Doctor Chuck, [facility] [place] [facility] DISCLOSURE AND CONSENT, 2019-08-31 05:01:00 Doctor Kaileessanthony, [facility] MEDICAL AND SURGICAL [place] Medical Bra nch PROCEDURES BI ULTRASOUND BREAST 2019-08-12 22:20:10 Reema Alfaro [facility] COMPLETE LEFT Medical Branch ASSIGNMENT OF BENEFITS 2019-05-27 15:18:16 Doctor Unassigned, [facility] [place] [facility] CONSENT/REFUSAL FOR 2019-05-04 13:54:[address]NOSIS [facility] TREATMENT [place] [facility] ASSIGNMENT OF BENEFITS 2019-05-04 13:54:08 Doctor Unassigned, Un [facility] [place] [facility] CONSENT/REFUSAL FOR 2018-10-25 17:20:35 Doctor Unassigned, [facility] DIAGNOSIS AND TREATMENT [place] [facility] ASSIGNMENT OF BENEFITS 2018-10-25 17:20:19 Doctor Kaileessigned, Ricardo [facility] [place] [facility] Plan of Care Planned Activity Planned Date Details Comments Source Future Scheduled Test 2020-12-07 00:00:00 COVID-19 Vaccination (3 MD Escobar - Pfizer risk 4-dose series) [code = COVID-19 Vaccination (3 - Pfizer risk 4-dose series)] Encounters Start End Encounter Admission Attending Care Care Encounter Source Date/Time Date/Time Type Type Clinicians Facility Department ID 2021-01-18 [facility] [id number] Univers 08:20:19 MEGHANN [facility] 2021-01-15 Outpatient SYSTEM, RITA SALINAS [id number] 11:13:43 PROVIDER Yosi childers 2019-09-27 Outpatient SYSTEMRITA MDA [id number] 14:51:57 PROVIDER Yosi childers 2021-09-30 2021-09-[address] [facility] [id number] Univers 10:30:00 10:30:00 MEGHANN [id number] [facility] 2021-04-03 2021-04-03 [facility] [id number] Univers 00:00:00 00:00:00 [facility] [id number] ity of CANCER 4.2.7.2.686 [facility] - [phone] Med [place] [address] Branch 2021-04-02 2021-04-02 ambulatory STLMLC STLMLC [id number] [facility]ence [facility]ics 2021-03-20 2021-03-20 Outpatient ROBERT DIXON MDA MDA [id number] 13:31:43 13:31:43 JUSTIN childers 2021-03-20 2021-03-20 Outpatient ROBERT DIXON MDA MDA [id number] 13:29:23 13:29:23 JUSTIN childers 2021-03-20 2021-03-20 Outpatient ROBERT DIXON MDA MDA [id number] 13:29:19 13:29:19 JUSTIN childers 2021-03-20 2021-03-20 Outpatient ROBERT DIXON MDA MDA [id number] 13:12:06 13:12:06 JUSTIN childers 2021-03-14 2021-03-14 ambulatory STLMLC STLMLC [id number] [facility] 2021-03-12 2021-03-12 ambulatory STLMLC STLMLC [id number] [facility] 2021-03-11 2021-03-11 ambulatory STLMLC STLMLC [id number] [facility] 2021-03-07 2021-03-07 ambulatory STLMLC STLMLC [id number] [facility] 2021-03-06 2021-03-06 Outpatient ROBERT DIXON MDA MDA [id number] 07:06:22 08:43:54 JUSTIN childers 2021-03-06 2021-03-06 Outpatient ROBERT DIXON MDA MDA [id number] 06:50:19 06:55:29 JUSTIN childers 2021-03-05 2021-03-05 ambulatory STLMLC STLMLC [id number] [facility] 2021-02-25 2021-02-25 ambulatory STLMLC STLMLC [id number] [facility] 2021-02-19 2021-02-19 ambulatory STLMLC STLMLC [id number] [facility] 2021-02-12 2021-02-12 ambulatory STLMLC STLMLC [id number] [facility] 2021-02-07 2021-02-07 ambulatory STLMLC STLMLC [id number] [facility] 2021-02-04 2021-02-04 ambulatory STLMLC STLMLC [id number] [facility] 2021-01-24 2021-01-24 ambulatory STLMLC STLMLC [id number] [facility] 2021-01-15 2021-01-15 Outpatient STLMLC STLMLC [id number] [facility] 2020-12-27 2020-12-27 Outpatient STLMLC STLMLC [id number] [facility] 2020-12-26 2020-12-26 Outpatient STLMLC [facility]LMLC [id number] [facility] 2020-12-26 2020-12-26 ambulatory STLMLC STLMLC [id number] [facility] 2020-12-25 2020-12-25 Outpatient STLMLC STLMLC [id number] [facility] 2020-12-20 2020-12-20 Outpatient STLMLC STLMLC [id number] [facility] 2020-12-17 2020-12-17 Outpatient STLMLC [facility]LMLC [id number] [facility] 2020-12-07 2020-12-07 Outpatient ROBERT DIXON [facility] [id number] 07:04:33 09:15:23 JUSTIN childers 2020-12-07 2020-12-07 Outpatient ROBERT DIXON MDA [facility] [id number] 06:51:59 06:55:15 JUSTIN childers 2020-12-05 2020-12-05 Outpatient CAHRITY KINNEY [facility] [id number] Univers 13:30:00 13:30:00 [id number] [facility] 2020-12-05 2020-12-05 Outpatient STLMLC STLMLC [id number] [facility] 2020-11-29 2020-11-29 Outpatient STLMLC STLC [id number] [facility] 2020-10-15 2020-10-15 [facility] 1.2.840.114 [id number] Univers 14:30:00 23:59:00 Encounter Meghann Reid SPECIALTY [id number] ity of CARE 4.2.7.2.686 Aretha [facility] AT [phone] [address] 2020-10-15 2020-10-15 [facility]patient [facility] [id number] Univers 15:30:00 15:30:00 MEGHANN [id number] [facility] 2020-10-15 2020-10-15 Outpatient Latrell [facility] [id number] Univers 15:30:00 15:30:00 MEGHANN [facility] 2020-10-01 2020-10-01 [facility] [id number] Univers 14:00:00 14:00:00 MEGHANN [id number] [facility] 2020-08-29 2020-08-29 Outpatient STLMLC STLC [id number] [facility] 2020-08-27 2020-08-27 Outpatient STLMLC STLMLC [id number] [facility] 2020-08-22 2020-08-22 [facility] [id number] [facility] 2020-08-22 2020-08-22 [facility] [id number] [facility] 2020-08-22 2020-08-22 [facility] [id number] [facility] 2020-08-17 2020-08-17 [facility] [id number] [facility] 2020-08-07 2020-08-07 Telephone Charity Centeno [facility] 1.2.840.114 [id number] Univers 00:00:00 00:00:00 E Health 350.1.13.10 it y of Cancer 4.2.7.2.686 [facility] - [phone] Med ical [address] 2020-08-03 2020-08-03 Office Charity Centeno [facility] 1.2.840.114 [id number] Univers 09:25:44 09:55:44 Visit E Health 350.1.13.10 it y of Cancer 4.2.7.2.686 [facility] [place] - [phone] Med ica[address] 2020-08-03 2020-08-03 Outpatient R CHARITY CENTENO [facility] [id number] Univers 09:45:00 09:45:00 [id number] ity [facility] 2020-08-03 2020-08-03 Outpatient R CHARITY CENETNO [facility] [id number] Univers 09:45:00 09:45:00 ity [facility] 2020-08-03 2020-08-03 Orders Doctor MOHAMUD 1.2.840.114 [id number] Univers 00:00:00 00:00:00 Only Unassigned, GINI 350.1.13.10 ity of [place] [facility] 4.2.7.2.686 Benjamin [id number] [facility] 009 Branch 2020-07-31 2020-07-31 Outpatient [facility] [id number] [facility] 2020-07-24 2020-07-24 [facility] [id number] [facility] 2020-07-17 2020-07-17 [facility] [id number] [facility] 2020-07-11 2020-07-11 [facility] [id number] [facility] 2020-07-10 2020-07-10 [facility] [id number] [facility] 2020-06-05 2020-06-05 [facility] 1.2.840.114 [id number] Univers 00:00:00 00:00:00 Outreach Janusz GORE 350.1.13.10 i ty of [facility] 4.2.7.2.686 Aretha SOTO [phone] Ok dical 388 Branch 2020-05-23 2020-05-23 Outpatient Latrell [facility] [id number] Univers 15:45:00 15:45:00 MEGHANN [id number] ity [facility] 2020-05-23 2020-05-23 Outpatient Lartell [facility] [id number] Univers 15:45:00 15:45:00 [facility] 2020-05-23 2020-05-23 Orders Doctor MOHAMUD 1.2.840.114 [id number] Univers 00:00:00 00:00:00 Only Unassigned, GINI 350.1.13.10 ity of [place] [facility] 4.2.7.2.686 Benjamin as [phone] [facility] 009 Branch 2020-04-25 2020-04-25 [facility] [id number] [facility] 2020-04-04 2020-04-04 [facility] [id number] [facility] 2019-12-05 2019-12-05 [facility] [id number] 08:20:00 08:20:00 [facility] [address] s - Road [facility] Family [facility] l Medicine Outpati ent Clinics 2019-11-29 2019-11-29 [facility] [id number] 10:26:00 10:26:00 t [employer] Track s - Drive [facility] l Medicine Outpati ent Clinics 2019-11-02 2019-11-02 Outpatient R [facility] [id number] Univers 15:30:00 15:30:00 MEGHANN [id number] ity [facility] 2019-11-02 2019-11-02 Outpatient R [facility] [id number] Univers 13:30:00 13:30:00 MEGHANN [facility] 2019-11-02 2019-11-02 Tele[facility] 1.2.840.114 [id number] Univers 08:57:33 09:12:33 ne Visit Meghann S Health 350.1.13.10 i ty of Cancer 4.2.7.2.686 [facility] [place] - [phone] Med ical MDA [id number] Home 2019-10-20 2019-10-20 [facility] 1.2.840.114 [id number] Univers 13:28:00 23:59:00 Encounter Meghann S SPECIALTY 350.1.13.10 ity of CARE 4.2.7.2.686 [facility] AT [phone] Ok charlene ROJO 807 [facility] 2019-10-20 2019-10-20 [facility] 1.2.840.114 [id number] Univers 09:46:00 14:23:00 Encounter Meghann S Health 350.1.13.10 ity of [place] 4.2.7.2.686 [facility] [phone] [address] ([facility]) 2019-10-20 2019-10-20 Outpatient R [facility] [id number] Univers 08:00:00 08:00:[address] [facility] 2019-10-19 2019-10-19 Telephone Beaumarinal ONEIDA 1.2.475.002 [id number] Univers 00:00:00 00:00:00 MalikGINI rodriguez 350.1.13.10 ity of [facility] 4.2.7.2.686 Benjamin as [phone] [address] 2019-10-19 2019-10-19 Orders Doctor ONEIDA 1.2.840.114 [id number] Univers 00:00:00 00:00:00 Only UnassGINI cruz 350.1.13.10 ity of [facility] 4.2.7.2.686 Benjamin as [id number] [address] 2019-10-18 2019-10-18 Outpatient R [facility] [id number] Univers 13:00:00 13:00:[id number] [facility] 2019-10-18 2019-10-18 Outpatient R [facility] [id number] Univers 13:00:00 13:00:[address] [facility] 2019-10-18 2019-10-18 Laboratory Only, [facility] Test [facility] 1.2.840. 114 [id number] Univers 12:24:47 12:39:47 Only Meghann Blakely S SPECIALTY 350.1.13.1 0 ity of CARE 4.2.7.2.686 [facility] AT [phone] Ok abanils [address] 2019-10-17 2019-10-17 Outpatient R [facility] [id number] Univers 09:00:00 09:00:00 [id number] ity [facility] 2019-10-14 2019-10-14 Outpatient ROBERT CASTILLO MDA MDA [id number] 00:00:00 00:00:00 NICOLLE childers 2019-10-13 2019-10-13 Outpatient MDA MDA [id number] 00:00:00 00:00:00 Yosi o n 2019-10-12 2019-10-12 Outpatient EL SUMMERS DESTINY, MDA MDA [id number] 00:00:00 00:00:00 JUSTIN Yosi o n 2019-10-12 2019-10-12 Outpatient EL SUMMERS DESTINY, MDA MDA [id number] MD 00:00:00 00:00:00 JUSTIN Deluca o n 2019-10-12 2019-10-12 Prep For ONEIDA Bright 1.2.840.[id number] [place] [address] 00:00:00 00:00:00 Surgery Andrew GINI 350.1.13.10 it y of [facility] 4.2.7.2.686 Benjamin as [phone] [facility] ami 010 Branch 2019-10-10 2019-10-10 Outpatient EL SUMMERS DESTINY, MDA MDA [id number] MD 00:00:00 00:00:00 JUSTIN Deluca o n 2019-10-06 2019-10-06 Outpatient EL BESSYMAD, MDA MDA [id number] MD 00:00:00 00:00:00 NICOLLE Nava so alvarado 2019-10-05 2019-10-05 Outpatient EL SUMMERS DESTINY, MDA MDA [id number] 00:00:00 00:00:00 JUSTIN Gomezers o n 2019-10-05 2019-10-05 Outpatient EL MDA MDA [id number] MD 00:00:00 00:00:00 Yosi o alvarado 2019-10-03 2019-10-03 Outpatient EL MDA MDA [id number] MD 00:00:00 00:00:00 Yosi o alvarado 2019-10-03 2019-10-03 Orders Doctor MOHAMUD 1.2.840.114 [id number] [facility] 00:00:00 00:00:00 Only Unassigned, GINI 350.1.13.10 ity of [facility] 4.2.7.2.686 Benjamin as [phone] Medi ami 009 Branch 2019-09-29 2019-09-29 Outpatient EL CAMPOVERDE, MDA MDA [id number] MD 14:37:37 14:37:37 PARKER childers 2019-09-28 2019-09-28 Outpatient SUMMERS DESTINY, MDA MDA [id number] 08:22:18 08:22:18 JUSTIN Yosi o n 2019-09-28 2019-09-28 Outpatient SUMMERS DESTINY, MDA MDA [id number] 08:22:16 08:22:16 JUSTIN Yosi o n 2019-09-28 2019-09-28 Outpatient SUMMERS DESTINY, MDA MDA [id number] 08:22:15 08:22:15 JUSTIN Yosi vinh n 2019-09-28 2019-09-28 Outpatient SUMMERS DESTINY, MDA MDA [id number] 08:22:15 08:22:15 JUSTIN Yosi vinh n 2019-09-28 2019-09-28 Outpatient SUMMERS DESTINY, MDA MDA [id number] 08:22:14 08:22:14 JUSTIN Yosi vinh n 2019-09-28 2019-09-28 Outpatient SUMMERS DESTINY, MDA MDA [id number] 08:22:13 08:22:13 JUSTIN Yosi vinh childers 2019-09-28 2019-09-28 Outpatient SUMMERS DESTINY, MDA MDA [id number] 08:22:12 08:22:12 JUSTIN Yosi vinh childers 2019-09-28 2019-09-28 Outpatient SUMMERS DESTINY, MDA MDA [id number] 08:22:10 08:22:10 JUSTIN Yosi vinh childers 2019-09-28 2019-09-28 Outpatient SUMMERS DESTINY, MDA MDA [id number] 08:22:09 08:22:09 JUSTIN Yois vinh childers 2019-09-26 2019-09-[address] [facility] [id number] Univers 13:30:00 13:30:00 MEGHANN Parkinson06 [facility] 2019-09-26 2019-09-[address] [facility] [id number] Univers 13:30:00 13:30:00 MEGHANN [facility] 2019-09-26 2019-09-26 Office [facility] [id number] Univers 13:08:27 13:23:27 Visit [facility] 350.1.13.10 it y of Cancer 4.2.7.2.686 [facility] - [phone] [place] [address] Branch 2019-09-15 2019-09-15 [facility] 1.2.840.114 [id number] Univers 08:49:00 23:59:00 Encounter Meghann Reid SPECIALTY 350.1.13.10 ity of [facility] 4.2.7.2.686 [facility] AT [phone] Ok charlene ROJO 5 [facility] 2019-09-15 2019-09-15 [facility] 1.2.840.114 [id number] Univers 07:35:00 13:27:00 Encounter Meghann [facility] 350.1.13.10 ity of [place] 4.2.7.2.686 [facility] [id number] [address] ([facility]) 2019-09-15 2019-09-15 Outpatient [facility] VLS [id number] Univers 07:35:00 13:27:00 MEGHANN [facility] 2019-09-13 2019-09-13 Laboratory Only, Adc Test [facility] 1.2.840. 114 [id number] Univers 10:45:33 11:00:33 Only JossydeeMeghann [place] 350.1.13.10 ity of [place] 4.2.7.2.686 [facility] [id number] [facility] 353 Home 2019-09-13 2019-09-13 Outpatient [facility] [id number] Univers 10:45:00 10:45:00 [id number] ity [facility] 2019-09-13 2019-09-[address] [facility] [id number] Univers 10:45:00 10:45:00 [facility] 2019-09-13 2019-09-13 Orders Doctor ONEIDA 1.2.840.114 [id number] Univers 00:00:00 00:00:00 Only Unassigned, GINI 350.1.13.10 ity of [place] [facility] 4.2.7.2.686 [facility] [id number] [facility] 009 Branch 2019-09-02 2019-09-02 Telephone [facility] 1.2.840.114 [id number] Univers 00:00:00 00:00:00 Meghann Reid [facility] 350.1.13.10 it y of Cancer 4.2.7.2.686 [facility] [id number] Med ical MDA [address] [place] [address] 2019-08-31 2019-08-[address] [facility] [id number] Univers 15:15:00 15:15:00 MEGHANN ity [facility] 2019-08-31 2019-08-31 Office [facility] [id number] Univers 13:23:54 13:53:54 Visit [facility] 350.1.13.10 it y of Cancer 4.2.7.2.686 [facility] [phone] Med ical [address] 2019-08-31 2019-08-[address] [facility] [id number] Univers 13:30:00 13:30:00 MEGHANN [facility] 2019-08-31 2019-08-31 [facility] 1.2.840.114 [id number] Univers 00:00:00 00:00:00 Outreach [employer] 350.1.13.10 ity of K Cancer 4.2.7.2.686 [facility] [id number] Med ica[address] 2019-08-30 2019-08-30 [facility] [id number] 16:35:00 16:35:00 [facility] Medicine Outpati ent Clinics 2019-08-30 2019-08-30 Outpatient R ZORA [facility] [id number] Univers 14:00:00 14:00:[address] of [facility] 2019-08-30 2019-08-30 Outpatient R ZORA [facility] [id number] Univers 14:00:00 14:00:00 MEGHANN cruzy [facility] 2019-08-22 2019-08-22 Outpatient R RADIOLOGY [facility] [id number] Univers 10:09:40 23:59:[address] [facility] 2019-08-22 2019-08-22 Outpatient [facility] [id number] Univers 10:30:00 10:30:[address] [facility] 2019-08-19 2019-08-19 [facility] [id number] [facility] [address] 09:37:00 09:37:00 [facility] Medicine Outpati ent Clinics 2019-08-18 2019-08-18 Outpatient R [facility] [id number] Univers 08:30:00 08:30:[id number] [facility] 2019-08-17 2019-08-17 [facility] [id number] [address] 10:12:00 10:12:00 [facility] Medicine Outpati ent [facility] 2019-08-12 2019-08-12 Outpatient R RADIOLOGY [facility] [id number] [facility] 15:24:39 23:59:[address] [facility] 2019-08-12 2019-08-12 Hospital Radiology [facility] [id number] [facility] 15:24:00 23:59:00 Encounter SPECIALTY [id number] ity of CARE [id number] [facility] AT [id number] Ok dical VICTORY [address] [place] [address] 2019-08-12 2019-08-12 Outpatient R RADIOLOGY [facility] [id number] Univers 15:30:00 15:30:00 [id number] [facility] [facility] 2019-08-12 2019-08-12 Hospital Radiology [facility] [id number] Univers 15:17:00 15:23:00 Encounter SPECIALTY [id number] [id number] [phone] Ok dical HORATIOBraulio [address] [place] [address] 2019-08-01 2019-08-01 Outpatient [facility] [id number] Univers 14:30:00 14:30:[id number] [facility] 2019-07-21 2019-07-21 [facility] [id number] 14:48:00 14:48:00 [facility] Medicine Outpati ent Clinics 2019-07-21 2019-07-21 [facility] [id number] 10:18:00 10:18:00 [facility] Medicine Outpati ent Clinics 2019-05-27 2019-05-27 Hospital Radiology [facility] [id number] Univers 09:15:00 23:59:00 Encounter Mio [id number] [id number] [id number] [facility] [address] 2019-05-27 2019-05-27 Outpatient R RADIOLOGY [facility] [id number] Univers 09:15:00 09:15:[address] [facility] 2019-05-27 2019-05-27 Outpatient R RADIOLOGY [facility] [id number] Univers 00:00:00 00:00:[address] [facility] 2019-05-27 2019-05-27 Orders Doctor ONEIDA [id number] Univers 00:00:00 00:00:00 Only Unassigned, GINI [id number] ity of [place] [facility] [id number] Benjamin as [id number] [address] 2019-05-10 2019-05-10 [facility] [id number] [facility] 16:45:00 16:45:00 [facility] Medicine Outpati ent Clinics 2019-05-04 2019-05-04 Shoe Handler [place], Adc Lab Main [facility] [id number] Univers 07:53:31 08:08:31 Visit Aubree Carr 350.1.13 .10 ity of [place] [facility] [phone] Ok dic[address] Building 2019-05-04 2019-05-04 Orders Doctor ONEIDA [id number] Univers 00:00:00 00:00:00 Only Unassigned, GINI [id number] ity of [place] [facility] [id number] Benjamin as [phone] [facility] [address] 2018-10-29 2018-10-29 [facility] [id number] 15:28:00 15:28:00 [facility] Medicine Outpati ent Clinics 2018-10-25 2018-10-25 Shoe Handler 1, Karol Lab [facility] [id number] [facility] 12:22:10 12:37:10 Visit BrunoAubree zavaleta 350.1.13 .10 ity of [place] 4.2.7.2.686 [facility] [phone] [facility] [address] 2018-10-25 2018-10-25 [facility] [id number] 10:00:00 10:00:00 [facility] Medicine Outpati ent Clinics 2018-10-25 2018-10-25 Orders Doctor ONEIDA [id number] 00:00:00 00:00:00 Only Unassigned, GINI [id number] ity of [facility] 4.2.7.2.686 [facility] [id number] [facility] [address] 2018-05-24 2018-05-24 [facility] [id number] 14:15:00 14:15:00 [facility] Medicine Outpati ent Clinics 2018-05-14 2018-05-14 [facility] [id number] 13:00:00 13:00:00 [facility] Medicine Outpati ent Clinics 2017-07-17 2017-07-17 [facility] [id number] 14:52:00 14:52:00 [facility] Medicine Outpati ent Clinics 2017-07-10 2017-07-10 [facility] [id number] 10:00:00 10:00:00 [facility] Medicine Outpati ent Clinics Results Test Description Test Time Test Comments Results Result Comments Source COVID-19 (HAWK-CoV-2) PCR Asymptomatic 2020-05-25 12:21:43 Test Item Value Reference Range Interpretation Comme nts COVID19 SARS Indication (test Pre-Radiation Therapy code = 37536) COVID19 SARS Result (test code = Detected Not Detected A 71646-1) COVID19 SARS Interpretation SARS-CoV-2 Detected. Reference (test code = 07125) Range: Not Detected Methodology: The Pak RealTime SARS-CoV-2 assay is a qualitative real-time reverse lending advisor polymerase chain reaction (campus recruiting internship-PCR) test to detect RNA from SARS-CoV-2 in nasal, nasopharyngeal and oropharyngeal swabs from patients with signs and symptoms of infection who are suspected of COVID-19 by their health care provider. The Pak RealTime SARS-CoV-2 performed on the [employer]iusTech000 System is a dual target assay with primers and probes for the RdRp and N genes. Results must be interpreted within the context of all relevant clinical and laboratory findings, and epidemiological risk factors. Positive results are indicative of the presence of SARS-CoV-2 RNA; clinical correlation with patient history and other diagnostic information is necessary to determine patient infection status. Positive results do not rule out bacterial infection or co-infection with other viruses. Negative results do not preclude SARS-CoV-2 infection and should not be used as the sole basis for patient management decisions. The Pak RealTime SARS-CoV-2 assay is for in vitro diagnostic use under FDA Emergency Use Authorization only. Testing is limited to laboratories certified under the Clinical Laboratory Improvement Amendments of 1988 (CLIA), 42U.S.C. 263a, to perform high complexity tests. The Test was performed by the CLIA-certified, high-complexity Molecular Diagnostics Laboratory (MDL) at [facility] under the Food and Drug Administration (FDA) s Emergency Use Authorization. Factsheet for patients: https://www.[facility].org/[facility] tSheetPatientsFactsheet for healthcare providers: https://www.[facility].org/AbbottFa tSheetHCP Test performed by:[facility] Molecular Diagnostic [id number] [place] [address] Lab Interpretation (test code = Abnormal 84242-7) OffermanXR CHEST 1 [id number] 18:47:30FINDINGS/IMPRESSION: A right chest wall port is present with the distal tip of the catheterending atthe cavoatrial junction. No parenchymal consolidation, pneumothorax, or pleural effusion. Thecardiomediastinal be seen with a silhouette is not enlarged.EXAM: XR CHEST 1 VW HISTORY: ?54 yearsyear-old Female after right subclavian hemaport placement COMPARISON: None [facility], Radiant Results Inft User - 10/20/2019 1:48 PM CDTEXAM: XR CHEST 1 VWHISTORY: 54 yearsyear-old Female after right subclavian hemaport placementCOMPARISON: NoneIMPRESSIONFINDINGS/IMPRESSION:A right chest wall port is present with the distal tip of the catheterending at the cavoatrial junction.No parenchymal consolidation, pneumothorax, or pleural effusion. Thecardiomediastinal be seen with a silhouette is not enlarged.[facility] (NON-REPORTABLE)2019-10-20 18:27:48These images do not require a Radiology diagnostic report.[facility] POCT GLUCOSE (AUTOMATED)2019-10-20 15:10:00 Test Item Value Reference Range Interpretation Comments POCT GLU (test code = 0321900802) 106 mg/dL 70-110 Lab Interpretation (test code = Normal 54913-6) [facility] SENTINEL [id number] 16:30:27 Status post left breast injection for axillary sentinel node mapping.SENTINEL NODE INJECTION CLINICAL INDICATION: Left breast cancer TECHNIQUE AND FINDINGS: With aseptic technique 1 mCi of technetium 99multra filtrated sulfur colloid was injected intradermally in 4 doses aroundleft periareolar region. No images were obtained. The patient willfollow-up with intraoperative sentinel node localization. [facility], Radiant Results Inft User - 09/15/2019 11:31 AM CDTSENTINEL NODE INJECTION CLINICAL INDICATION:Left breast cancer TECHNIQUE AND FINDINGS: With aseptic technique 1 mCi of technetium 99multra filtrated sulfur colloid was injected intradermally in 4 doses aroundleft periareolar region. No images were obtained. The patient willfollow-up with intraoperative sentinel node localization.IMPRESSION Status post left breast injection for axillary sentinel node mapping.[facility] (NON-REPORTABLE) 2019-09-15 15:52:58These images do not require a Radiology diagnostic report. [facility])2019-09-15 13:05:00 Test Item Value Reference Range Interpretation Comments POCT GLU (test code = [id number]) 112 mg/dL 70-110 H Lab Interpretation (test code = Abnormal 10432-9) [facility] BRE[facility] COMPLETE [id number] 23:52:53Examination:BI ULTRASOUND BREAST COMPLETE LEFT History:Patient is 54 year old and is seen for: LEFT BREAST architectural distortion with associated fine linear calcifications in the upper outer quadrant at middle depth at a distance of 6 cm from the nipple.? Recommend Ultrasound with possible tomosynth esis spot compression - Left Comparisons: 05/27/2019 BI SCREENING TOMOSYNTHESIS BILATERAL, 07/24/2017 BI SCREENING TOMOSYNTHESIS BILATERAL, 05/29/2016 DIGITAL MAMMOGRAM, SCREENING, 05/18/2015 DIGITAL MAMMOGRAM, SCREENING, and 07/18/2008 DIGITAL MAMMOGRAM, SCREENING Findings:Complete breast ultrasound was performed There is a 23 mm x 19 mm x 17 mm irregularly shaped, non-parallel mass with spiculatedmargins with shadowing seen in the upper outer quadrant of the left breast at 2 o'clock, 6 cm from the nipple. The mass correlates with the prior mammogram finding. ? No internal vascularity is seen with color flow imaging. No sonographic abnormalities were identified in the remaining upper inner, lower outer, and lower inner quadrants or in the subareolar region. There is no lymphadenopathy including the axillary, infraclavicular, supraclavicular, and internal mammary chain regions. Impression:LEFT BREAST: 23 mm irregular mass with spiculated margins at 2 o'clock, 6 cm from the nipple is highly suggestive of malignancy. ?This mass correlates with the recent mammographic finding. Recommendation:Ultrasound guided core biopsy ?- Left - at 2 o'clock, 6 cm from the nipple BI-RADS Category: Left 5 - Highly Suggestive of Malignancy ?These findings and recommendations were discussed with the patient at the conclusion of today's examination.[facility]
--- NOTE | 2021-04-06 11:57 | EDPHYS ---
Physician Documentation [facility] Name: Sonya Duff Age: 56 yrs Sex: Female : 1965 Arrival Date: 04/06/2021 Time: 10:21 Bed Waiting Private MD: ARIELLE Physician Marcos Cody HPI: 04/06 11:47 This 56 yrs old Female presents to ER via Ambulatory with complaints of Covid nani Test, Headache, Fatigue. 11:47 The patient complains of pain to the forehead, right eye and left eye. The patient nani describes the headache as aching. Onset: The symptoms/episode began/occurred 2 day(s) ago. Associated signs and symptoms: Pertinent positives: sinus congestion. Severity of symptoms: At its worst the pain was mild, in the emergency department the pain is unchanged. 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 - Hysterectomy tw2 Historical: - Allergies: 10:28 No Known Allergies; tw2 - Home Meds: 10:28 zolpidem 10 mg Oral tab 1 tab once daily [Active]; pregabalin 75 mg Oral cap 1 cap 3 tw2 times per day [Active]; phentermine 30 mg oral TbDi 1 tab once daily [Active]; citalopram 10 mg tab 1 tab once daily [Active]; - PMHx: 10:28 Diabetes - NIDDM; Gastric Reflux; High Cholesterol; Hypertension; breast cancer, LEFT- tw2 invasive ductal; - PSHx: 10:28 hysterectomy, partial; left knee repair; breast reduction, with implants; tw2 - Immunization history:: Client reports receiving the 2nd dose of the Covid vaccine, Flu vaccine status is unknown. - Social history:: Smoking status: Patient denies any tobacco usage or history of. ROS: 11:50 Constitutional: Negative for fever, chills, and weight loss, Eyes: Negative for injury, nani pain, redness, and discharge, Neck: Negative for injury, pain, and swelling, Cardiovascular: Negative for chest pain, palpitations, and edema, Abdomen/GI: Negative for abdominal pain, nausea, vomiting, diarrhea, and constipation, Back: Negative for injury and pain, : Negative for injury, bleeding, discharge, and swelling, MS/Extremity: Negative for injury and deformity, Skin: Negative for injury, rash, and discoloration, Neuro: Negative for headache, weakness, numbness, tingling, and seizure, Psych: Negative for depression, anxiety, suicide ideation, homicidal ideation, and hallucinations, Allergy/Immunology: Negative for hives, rash, and allergies, Endocrine: Negative for neck swelling, polydipsia, polyuria, polyphagia, and marked weight changes, Hematologic/Lymphatic: Negative for swollen nodes, abnormal bleeding, and unusual bruising. 11:50 ENT: Positive for rhinorrhea, sinus congestion. Exam: 11:50 Constitutional: This is a well developed, well nourished patient who is awake, alert, nani and in no acute distress. Head/Face: Normocephalic, atraumatic. Eyes: Pupils equal round and reactive to light, extra-ocular motions intact. Lids and lashes normal. Conjunctiva and sclera are non-icteric and not injected. Cornea within normal limits. Periorbital areas with no swelling, redness, or edema. ENT: Nares patent. No nasal discharge, no septal abnormalities noted. Tympanic membranes are normal and external auditory canals are clear. Oropharynx with no redness, swelling, or masses, exudates, or evidence of obstruction, uvula midline. Mucous membranes moist. Neck: Trachea midline, no thyromegaly or masses palpated, and no cervical lymphadenopathy. Supple, full range of motion without nuchal rigidity, or vertebral point tenderness. No Meningismus. Chest/axilla: Normal chest wall appearance and motion. Nontender with no deformity. No lesions are appreciated. Cardiovascular: Regular rate and rhythm with a normal S1 and S2. No gallops, murmurs, or rubs. Normal PMI, no JVD. No pulse deficits. Abdomen/GI: Soft, non-tender, with normal bowel sounds. No distension or tympany. No guarding or rebound. No evidence of tenderness throughout. Back: No spinal tenderness. No costovertebral tenderness. Full range of motion. Skin: Warm, dry with normal turgor. Normal color with no rashes, no lesions, and no evidence of cellulitis. MS/ Extremity: Pulses equal, no cyanosis. Neurovascular intact. Full, normal range of motion. Neuro: Awake and alert, GCS 15, oriented to person, place, time, and situation. Cranial nerves II-XII grossly intact. Motor strength 5/5 in all extremities. Sensory grossly intact. Cerebellar exam normal. Normal gait. Psych: Awake, alert, with orientation to person, place and time. Behavior, mood, and affect are within normal limits. 11:50 Respiratory: the patient does not display signs of respiratory distress, Respirations: normal, Breath sounds: are clear throughout, rhonchi, that are mild, are scattered. Vital Signs: 10:26 BP 147 / 96; Pulse 100; Resp 18; Temp 97.5(TE); Pulse Ox 97% on R/A; tw2 Jessica Coma Score: 11:52 Eye Response: spontaneous(4). Verbal Response: oriented(5). Motor Response: obeys [facility] commands(6). Total: 15. MDM: 11:52 Differential diagnosis: sinusitis. Data reviewed: vital signs, nurses notes, lab test [facility] result(s). Data interpreted: monitoring manager: rate is 100 beats/min, Pulse oximetry: on room air is 97 %. Counseling: I had a detailed discussion with the patient and/or guardian regarding: the historical points, exam findings, and any diagnostic results supporting the discharge/admit diagnosis, lab results, the need for outpatient follow up, for definitive care, a family practitioner. 11:56 Patient medically screened. [facility] 04/06 10:34 Order name: SARS-COV-2 RT PCR (Document "Date of Onset" if Symptomatic); Complete Time: iw 11:43 Administered Medications: No medications were administered Disposition Summary: 04/06/21 11:56 Discharge Ordered Location: Home [facility] Problem: new nani Symptoms: have improved nani Condition: Stable nani Diagnosis - Acute upper respiratory infection, unspecified nani - Cough nani Followup: [facility] - With: Private Physician - When: 2 - 3 days - Reason: Recheck today's complaints, Continuance of care, Re-evaluation by your physician Discharge Instructions: - Discharge Summary Sheet nani - Upper Respiratory Infection, Adult nani - Cool Mist Vaporizer nani - Upper Respiratory Infection, Adult, Xedn-gf-Lrbd nani - Cough, Adult, Nseq-je-Pqay nani - Cough, Adult nani Forms: - Medication Reconciliation Form nani - Thank You Letter nani - Antibiotic Education nani - Prescription Opioid Use [facility] Prescriptions: - Coretta-D 12 Hour 60-120 mg Oral Tablet Sustained Release 12 hr - take 1 tablet by ORAL route every 12 hours As needed; 20 tablet; Refills: 0, nani Product Selection Permitted - Zithromax Z-Kamran 250 mg Oral Tablet - take 1 tablet by ORAL route as directed for 5 days Day 1 - take two (2) tablets nani one time. Day 2, 3, 4 , 5 take one (1) tablet once daily.; 6 tablet; Refills: 0, Product Selection Permitted - Medrol (Kamran) 4 mg Oral Tablets, Dose Pack - take 1 tablet by ORAL route as directed - follow package instructions; 1 nani packet; Refills: 0, Product Selection Permitted - Guaifenesin AC 10-100 mg/5 mL Oral Liquid - take 10 milliliters by ORAL route every 6 hours As needed; 160 milliliter; nani Refills: 0, Product Selection Permitted Signatures: Dispatcher [employer] Marcos Resendiz MD MD cha Wise, Tara RN RN tw2 Corrections: (The following items were deleted from the chart) 10:30 10:28 Allergies: Zolpidem; tw2 tw2
--- NOTE | 2021-04-06 11:57 | ER ---
Nurse's Notes [facility] Name: Sonya Duff Age: 56 yrs Sex: Female : 1965 Arrival Date: 04/06/2021 Time: 10:21 Bed Waiting Private MD: Diagnosis: Acute upper respiratory infection, unspecified;Cough Presentation: 04/06 10:26 Chief complaint: Patient states: i need to see if i can get tested. its been like 4 tw2 days. i have fever, drainage, and coughing at night with chills. i am congested. and a headache. Coronavirus screen: chills, cough unrelated to allergies, fatigue, Client presents with at least one sign or symptom that may indicate coronavirus-19. Standard/surgical mask placed on the client. Provider contacted for isolation considerations. Ebola Screen: Patient denies travel to an Ebola-affected area in the 21 days before illness onset. Initial Sepsis Screen: Does the patient meet any 2 criteria? HR > 90 bpm. No. Patient's initial sepsis screen is negative. Does the patient have a suspected source of infection? No. Patient's initial sepsis screen is negative. Risk Assessment: Do you want to hurt yourself or someone else? Patient reports no desire to harm self or others. Onset of symptoms was April 06, 2021. 10:26 Method Of Arrival: Ambulatory tw2 10:26 Acuity: MICHELLE 4 tw2 Triage Assessment: 10:31 Headache History: The patient has had previous headaches and this one is similar to tw2 previous episodes, and this one is more severe than previous episodes. General: Appears in no apparent distress. obese, well groomed, Behavior is calm, cooperative, appropriate for age. Pain: Pain currently is 8 out of 10 on a pain scale. Pain began 2-3 days ago. Also complains of no other associated symptoms. Neuro: Level of Consciousness is awake, alert, obeys commands, Oriented to person, place, time, situation. Respiratory: Airway is patent Respiratory effort is even, unlabored, Respiratory pattern is regular, symmetrical. 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 tw2 Historical: - Allergies: 10:28 No Known Allergies; tw2 - Home Meds: 10:28 zolpidem 10 mg Oral tab 1 tab once daily [Active]; pregabalin 75 mg Oral cap 1 cap 3 tw2 times per day [Active]; phentermine 30 mg oral TbDi 1 tab once daily [Active]; citalopram 10 mg tab 1 tab once daily [Active]; - PMHx: 10:28 Diabetes - NIDDM; Gastric Reflux; High Cholesterol; Hypertension; breast cancer, LEFT- tw2 invasive ductal; - PSHx: 10:28 hysterectomy, partial; left knee repair; breast reduction, with implants; tw2 - Immunization history:: Client reports receiving the 2nd dose of the Covid vaccine, Flu vaccine status is unknown. - Social history:: Smoking status: Patient denies any tobacco usage or history of. Screenin:55 Abuse screen: Denies threats or abuse. Denies injuries from another. Nutritional tw2 screening: No deficits noted. Tuberculosis screening: No symptoms or risk factors identified. Fall Risk None identified. Vital Signs: 10:26 BP 147 / 96; Pulse 100; Resp 18; Temp 97.5(TE); Pulse Ox 97% on R/A; tw2 Hestand Coma Score: 11:52 Eye Response: spontaneous(4). Verbal Response: oriented(5). Motor Response: obeys [facility] commands(6). Total: 15. ED Course: 10:21 Patient arrived in ED. mr 10:28 Triage completed. tw2 10:31 Arm band placed on. tw2 10:32 Marcos Cody MD is Attending Physician. [facility] 10:54 SARS-COV-2 RT PCR (Document "Date of Onset" if Symptomatic) Sent. 5 10:54 COVID swab sent to lab. [facility] 10:56 pt NAD returned to [facility] waiting area for results. pt texting on her phone at this time.tw2 12:07 Maite Cowan, RN is Primary Nurse. iw 12:07 No provider procedures requiring assistance completed. Patient did not have IV access iw during this emergency room visit. Administered Medications: No medications were administered Outcome: 11:56 Discharge ordered by . [facility] 12:07 Discharged to home ambulatory. iw 12:07 Condition: good 12:07 Discharge instructions given to patient, Instructed on discharge instructions, follow up and referral plans. medication usage, Demonstrated understanding of instructions, follow-up care, medications, Prescriptions given X 4. 12:07 Patient left the ED. iw Signatures: Marcos Cody MD MD cha Rivera, Mary mr Matie Cowan, RN RN iw Niecy Celis RN RN 2 Ivett Ramirez [facility] Corrections: (The following items were deleted from the chart) 10: 10:28 Allergies: Zolpidem; tw2 tw2 10:31 10:26 Chief complaint: Patient states: i need to see if i can get tested. its been like tw2 4 days. i have fever, drainage, and coughing at night with chills. i am congested. tw2
[2021-04-06 12:20] VITALS: BP 147/96; TEMP 97.5; O2SAT 97
== END 2021-04-06 12:07 | disposition home or self-care (01) ==
LOC: ER 10:19
DX: J06.9 Acute upper respiratory infection, unspecified (principal); R05.9 Cough, unspecified; I10 Essential (primary) hypertension; E11.9 Type 2 diabetes mellitus without complications; Z20.822 Contact with and (suspected) exposure to COVID-19; Z98.82 Breast implant status
CPT/HCPCS: 99283; U0003

== ENCOUNTER 2021-05-01 12:24 | Emergency (ER) | payer SELFPAY ==
--- OUTSIDE RECORDS SUMMARY | 2021-05-01 12:28 | XMS REPORT | Clinical Summary ---
:1965 Author Organization [facility] MD [facility] Address [address] [place] [address] Care Team Providers Name Role Phone Justin Simth MD Primary Care Provider Meghann Daigle MD Unavailable [phone] Chaparro Arroyo MD Unavailable Allergies No [...] 3 Drug-induced (three) times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 a day. gabapentin Take 3 90 capsule 1 07/21/19 [...] IB (pT 2, pN0(sn), cM0, G3, ER+, NE+, HER2-, Oncotype DX score: 43) - Unsigned Encounters Date Type Specialty Care Team Description 04/01/2021 Refill Thoracic Medicine Irene Shermana ting duct carcinoma, 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; Left>; RAAD Joseph Drug-induced po lyneuropathy 03/20/2021 Ancillary Procedure Radiology Daron Smith MD 03/20/2021 Ancillary Procedure Radiology Daron Smith MD 03/20/2021 Ancillary Procedure Radiology Daron Smith MD 03/20/2021 Ancillary Procedure Radiology Daron Smith MD 03/06/2021 Office Visit Thoracic Medicine Leslee Heredia, Ivetati ng duct carcinoma, 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; Left>; MD Justin Reactive depres ryan (situational); Vitamin D defic iency, not otherwise specified 03/06/2021 Travel 02/19/2021 Refill Oncology Irene Sherman Infiltrating duct Opal, BLASTING GANG MINER carcinoma of up per outer quadrant of left female parminder ast (Primary Dx) 02/04/2021 Refill Oncology Irene Sherman Infiltrating duct carcinoma, 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; Left>; Opal, BLASTING GANG MINER Reactive depres ryan (situational) 01/29/2021 Refill Thoracic Medicine Irene Sherman Infiltra ting duct carcinoma, 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; Left>; Opal, BLASTING GANG MINER Drug-induced po lyneuropathy 12/27/2020 Refill Thoracic Medicine Irene Sherman Infiltra ting duct carcinoma, 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; Left>; Opal, BLASTING GANG MINER Drug-induced po lyneuropathy 12/07/2020 Office Visit Thoracic Medicine [facility], Vitamin D deficiency, not otherwise specified (Primary Dx); MD Justin 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; Reactive depres ryan (situational) 12/07/2020 Refill Thor[facility], Infiltrati ng duct carcinoma of upper outer quadrant of left female breast; MD Justin Reactive depres ryan (situational); Vitamin D defic iency, not otherwise specified 12/07/2020 Travel 11/23/2020 Refill Thoracic Medicine Irene Sherman Infiltra ting duct carcinoma of upper outer quadrant of left female breast; Opal, BLASTING GANG MINER Reactive depres ryan (situational) 11/20/2020 Refill Thoracic Medicine Irene Sherman Infiltra ting duct carcinoma of upper outer quadrant of left female breast; Opal, BLASTING GANG MINER Drug-induced po lyneuropathy 11/15/2020 Telephone Oncology Bella Elizabeth RN vaccine 11/15/2020 Telephone Oncology Bella Elizabeth RN 10/16/2020 Refill Thoracic Medicine [facility], Infiltrati ng duct carcinoma of upper outer quadrant of left female breast; MD Justin Drug-induced po lyneuropathy; Reactive depres ryan (situational) 08/15/2020 Office Visit Thoracic Medicine [facility], Reactive d epression (situational) (Primary Dx); MD Justin 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 08/15/2020 Ancillary Procedure Radiology Irene Sherman, BLASTING GANG MINER 08/15/2020 Ancillary Procedure Radiology Irene Sherman Infilt rating duct Opal, BLASTING GANG MINER carcinoma of up per outer quadrant of left female parminder ast 08/15/2020 Ancillary Procedure Radiology Irene Sherman Infilt rating duct Opal, BLASTING GANG MINER carcinoma of up per outer quadrant of left female parminder ast 08/15/2020 Travel 08/06/2020 Orders Only Thoracic Medicine [facility], Infiltrati ng duct carcinoma of upper outer quadrant of left female breast; MD Justin Drug-induced po lyneuropathy 07/27/2020 Documentation Radiation Dain Castillo Oncology MD Latre[place] 07/27/2020 Travel 07/26/2020 Travel 07/25/2020 Clinical Support Radiation Hemant Castilloofbrian Oncology MD [place] 07/25/2020 Travel 07/24/2020 Travel 07/23/2020 Documentation Radiation Denita Sen Oncology MD Rosa 07/23/2020 Travel 07/20/2020 Refill Thoracic Medicine [facility], Infiltrati ng duct carcinoma of upper outer quadrant of left female breast; MD Justin Drug-induced po lyneuropathy 07/20/2020 Travel 07/19/2020 Travel 07/18/2020 Clinical Support Radiation Hemant Castilloofbrian Oncology MD [place] 07/18/2020 Travel 07/17/2020 Travel 07/16/2020 Travel 07/13/2020 Documentation Radiation Dain Castillo Oncology MD [place] 07/13/2020 Travel 07/12/2020 Travel 07/11/2020 Clinical Support Dain Palacios Oncology MD [place] 07/11/2020 Documentation Radiation Dain Castillo Oncology MD [place] 07/11/2020 Travel 07/10/2020 Travel 07/09/2020 Travel 07/06/2020 Travel 07/05/2020 Travel 07/04/2020 Clinical Support Hemant Palaciosofbrian Oncology MD [place] 07/04/2020 Travel 07/03/2020 Travel 07/02/2020 Documentation Radiation Hemant Castilloofbrian Oncology MD [place] 07/02/2020 Travel 06/29/2020 Documentation Radiation Hemant Castilloofbrian Oncology MD [place] 06/25/2020 Hospital Encounter Radiation Leslee Heredia, Oncology MD Justin 06/21/2020 Documentation Radiation Ahmad, Neelofur Oncology RMD 06/21/2020 Documentation Radiation Ansonmamargo Neelofur Oncology MD [place] 06/21/2020 Travel 06/20/2020 Documentation Radiation Iraida Macdonald Oncology 06/18/2020 Refill Oncology Leslee Heredia, 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; MD Justin Drug-induced po lyneuropathy 05/25/2020 Documentation Radiation Iraida Macdonald Oncology 05/24/2020 Clinical Support Rachel Lopez PA Suspicion (Primary Dx); Maryam, 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 DOUGLAS Wilhelm 05/24/2020 Office Visit Radiation Dain Castillo Infiltrating duct Oncology RMD carcinoma of up per outer quadrant of left female parminder ast (Primary Dx) 05/24/2020 Documentation Radiation AnsonmaGenesis aragonelofbrian Oncology MD [place] 05/24/2020 Documentation Radiation Anna Neelofur Oncology MD [place] 05/24/2020 Documentation Radiation Iraida Macdonald Oncology 05/24/2020 Travel 05/23/2020 Orders Only Radiation Ansonmamargo Neelofbrian Infiltrating duct Oncology RMD carcinoma of up per outer quadrant of left female parminder ast (Primary Dx) 05/18/2020 Office Visit Oncology Camilo Flandreau, 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; MD Justin Drug-induced po lyneuropathy; Encounter for a ntineoplastic chemotherapy; Anemia, not oth erwise specified 05/18/2020 Ancillary Procedure Radiology Camilo Giovanna, Infiltra ting duct carcinoma of upper outer quadrant of left female breast; MD Justin Drug-induced po lyneuropathy; Encounter for a ntineoplastic chemotherapy; Anemia, not oth erwise specified 05/18/2020 Travel 05/11/2020 Telephone Oncology Bella Elizabeth RN 05/01/2020 Telephone Oncology Irene Sherman FNP after 05/01/2020 Immunizations Name Administration Dates Next Due Pfizer [...] Comments Blood Pressure 143/88 03/06/2021 7:55 AM [employer]IOR [employer]EDIT OFFICER Pulse 77 03/06/2021 7:55 AM [employer]IOR [employer]ICER Temperature 36.9 C (98.4 F) 03/06/2021 7:55 AM S[employer]IOR [employer]EDIT OFFICER Respiratory Rate 18 03/06/2021 7:55 AM S[employer]IOR CREDIT OFFICER Oxygen Saturation 97% 03/06/2021 7:55 AM S[employer]IOR CREDIT OFFICER Inhaled Oxygen Concentration - - Weight 97.2 kg (214 lb 4.6 oz) 03/06/2021 7:55 AM S[employer]IOR CREDIT OFFICER Height 147.3 cm (4' 10") 05/18/2020 10:00 AM S[employer]IOR [employer]EDIT OFFICER Body Mass Index 44.79 05/18/2020 10:00 AM [employer]IOR [employer]EDIT OFFICER Plan of Treatment Date Type Specialty Care Team Description 06/19/2021 Lab Lab Danielle Smith MD [address], [place] [address] (Wo rk) 06/19/2021 Office Visit Thoracic Medicine Deborah Smith MD [address], [place] [address] (Wo rk) Health Maintenance Due Date Last Done Comments COVID-19 Vaccination (3 - Pfizer risk 12/07/2020 11/09/2020 , 10/19/2020 4-dose series) Procedures Procedure Name Priority Date/Time Associated Diagnosis Comme nts FRACTIONATED BILIRUBIN Routine 03/06/2021 6:59 Infiltrating d uct Results for this AM [employer]ER carcinoma, NOS of procedure are in upper-outer quadrant the res ults of breast <Female; section. Left> Reactive depression (situational) Vitamin D deficiency, not otherwise specified TOTAL PROTEIN Routine 03/06/2021 6:59 [address] duct Resul ts for this AM [employer] carcinoma, NOS of procedure are in upper-outer quadrant the res ults of breast <Female; section. Left> Reactive depression (situational) Vitamin D deficiency, not otherwise specified ASPARTATE Routine 03/06/2021 6:59 Infil[address]ating duct Result s for this AMINOTRANSFERASE AM [employer]ICER carcinoma, NOS of proced ure are in upper-outer quadrant the res ults of breast <Female; section. Left> Reactive depression (situational) Vitamin D deficiency, not otherwise specified ALANINE Routine 03/06/2021 6:59 Infil[address] duct Result s for this AMINOTRANSFERASE AM [employer]ER carcinoma, NOS of proced ure are in upper-outer quadrant the res ults of breast <Female; section. Left> Reactive depression (situational) Vitamin D deficiency, not otherwise specified ALKALINE PHOSPHATASE Routine 03/06/2021 6:59 Infiltrating ramakrishna t Results for this AM [employer]ER carcinoma, NOS of procedure are in upper-outer quadrant the res ults of breast <Female; section. Left> Reactive depression (situational) Vitamin D deficiency, not otherwise specified ALBUMIN LEVEL Routine 03/06/2021 6:59 In[address] duct Resul ts for this AM [employer] carcinoma, NOS of procedure are in upper-outer quadrant the res ults of breast <Female; section. Left> Reactive depression (situational) Vitamin D deficiency, not otherwise specified CALCIUM LEVEL TOTAL Routine 03/06/2021 6:59 [address] duct Results for this AM [employer]ER carcinoma, NOS of procedure are in upper-outer quadrant the res ults of breast <Female; section. Left> Reactive depression (situational) Vitamin D deficiency, not otherwise specified .GLOMERULAR FILTRATION Routine 03/06/2021 6:59 Infiltrating d uct Results for this RATE AM [employer]ER carcinoma, NOS of procedure are in upper-outer quadrant the res ults of breast <Female; section. Left> Reactive depression (situational) Vitamin D deficiency, not otherwise specified SERUM CREATININE Routine 03/06/2021 6:59 [address] duct Re sults for this AM [employer]ER carcinoma, NOS of procedure are in upper-outer quadrant the res ults of breast <Female; section. Left> Reactive depression (situational) Vitamin D deficiency, not otherwise specified ELECTROLYTE PANEL Routine 03/06/2021 6:59 [address] duct R esults for this AM [employer]ER carcinoma, NOS of procedure are in upper-outer quadrant the res ults of breast <Female; section. Left> Reactive depression (situational) Vitamin D deficiency, not otherwise specified BLOOD UREA NITROGEN Routine 03/06/2021 6:59 [address] duct Results for this AM [employer] carcinoma, NOS of procedure are in upper-outer quadrant the res ults of breast <Female; section. Left> Reactive depression (situational) Vitamin D deficiency, not otherwise specified GLUCOSE LEVEL Routine 03/06/2021 6:59 In[address] duct Resul ts for this AM [employer]ER carcinoma, NOS of procedure are in upper-outer quadrant the res ults of breast <Female; section. Left> Reactive depression (situational) Vitamin D deficiency, not otherwise specified MANUAL DIFFERENTIAL Routine 03/06/2021 6:59 [address] duct Results for this AM [employer]ER carcinoma, NOS of procedure are in upper-outer quadrant the res ults of breast <Female; section. Left> Reactive depression (situational) Vitamin D deficiency, not otherwise specified Results CBC Routine 03/06/2021 6:59 Infil[address]ating duct Result s for this AM [employer]ER carcinoma, NOS of procedure are in upper-outer quadrant the res ults of breast <Female; section. Left> Reactive depression (situational) Vitamin D deficiency, not otherwise specified VITAMIN D 25 HYDROXY Routine 03/06/2021 6:59 Infiltrating ramakrishna t Results for this LEVEL AM [employer]ER carcinoma, NOS of procedure are in upper-outer quadrant the res ults of breast <Female; section. Left> Reactive depression (situational) Vitamin D deficiency, not otherwise specified LACTATE DEHYDROGENASE Routine 03/06/2021 6:[address] Results for this AM [employer]ER carcinoma, NOS of procedure are in upper-outer quadrant the res ults of breast <Female; section. Left> Reactive depression (situational) Vitamin D deficiency, not otherwise specified PHOSPHORUS LEVEL Routine 03/06/2021 6:59 In[address] duct Re sults for this AM [employer]ER carcinoma, NOS of procedure are in upper-outer quadrant the res ults of breast <Female; section. Left> Reactive depression (situational) Vitamin D deficiency, not otherwise specified MAGNESIUM LEVEL Routine 03/06/2021 6:59 Infil[address] duct Res ults for this AM [employer]ICER carcinoma, NOS of procedure are in upper-outer quadrant the res ults of breast <Female; section. Left> Reactive depression (situational) Vitamin D deficiency, not otherwise specified COMPREHENSIVE METABOLIC Routine 03/06/2021 6:59 [address] duct PANEL AM [employer]ICER carcinoma, 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; Left> Reactive depression (situational) Vitamin D deficiency, not otherwise specified COMPLETE BLOOD COUNT W/ Routine 03/06/2021 6:59 Infil[address] duct DIFFERENTIAL AM [employer]ICER carcinoma, NOS of upper-outer quadrant of breast [...] female coral st section. Reactive depression (situational) PHOSPHORUS LEVEL [...] upper outer quadrant of left female breast HC 2019-NCOV COVID-19 Routine 05/24/2020 3:43 Suspicion Re sults for this PM [employer] OFFICER procedure are i n the results section. DEXA BONE MINERAL Routine 05/18/2020 10:45 Infiltrating duct R esults for this DENSITY BOTH HIPS AND AM [employer]EDIT OFFICER carcinoma of upper procedure are in SPINE outer quadrant of the result s left female coral st section. Drug-induced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 Encounter for antineoplastic chemotherapy Anemia, not otherwise specified FRACTIONATED BILIRUBIN Routine 05/18/2020 10:31 Infiltrating d uct Results for this AM [employer] carcinoma of upper procedure are in outer quadrant of the result s left female coral st section. Drug-induced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 Encounter for antineoplastic chemotherapy Anemia, not otherwise specified TOTAL PROTEIN Routine 05/18/2020 10:31 Infiltrating duct Resul ts for this AM [employer]ER carcinoma of upper procedure are in outer quadrant of the result s left female [address] section. Drug-induced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 Encounter for antineoplastic chemotherapy Anemia, not otherwise specified ASPARTATE Routine 05/18/2020 10:31 Infiltrating duct Result s for this AMINOTRANSFERASE AM [employer]ER carcinoma of upper proce dure are in outer quadrant of the result s left female coral st section. Drug-induced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 Encounter for antineoplastic chemotherapy Anemia, not otherwise specified ALANINE Routine 05/18/2020 10:31 Infiltrating duct Result s for this AMINOTRANSFERASE AM [employer]ICER carcinoma of upper proce dure are in outer quadrant of the result s left female coral st section. Drug-induced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 Encounter for antineoplastic chemotherapy Anemia, not otherwise specified ALKALINE PHOSPHATASE Routine 05/18/2020 10:31 Infiltrating ramakrishna t Results for this AM [employer]ER carcinoma of upper procedure are in outer quadrant of the result s left female coral st section. Drug-induced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 Encounter for antineoplastic chemotherapy Anemia, not otherwise specified ALBUMIN LEVEL Routine 05/18/2020 10:31 Infiltrating duct Resul ts for this AM [employer]ER carcinoma of upper procedure are in outer quadrant of the result s left female coral st section. Drug-induced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 Encounter for antineoplastic chemotherapy Anemia, not otherwise specified CALCIUM LEVEL TOTAL Routine 05/18/2020 10:31 Infiltrating duct Results for this AM [employer]ER carcinoma of upper procedure are in outer quadrant of the result s left female coral st section. Drug-induced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 Encounter for antineoplastic chemotherapy Anemia, not otherwise specified .GLOMERULAR FILTRATION Routine 05/18/2020 10:31 Infiltrating d uct Results for this RATE AM [employer]ER carcinoma of upper procedure are in outer quadrant of the result s left female coral st section. Drug-induced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 Encounter for antineoplastic chemotherapy Anemia, not otherwise specified SERUM CREATININE Routine 05/18/2020 10:31 Infiltrating duct Re sults for this AM [employer]ICER carcinoma of upper procedure are in outer quadrant of the result s left female [address] section. Drug-induced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 Encounter for antineoplastic chemotherapy Anemia, not otherwise specified ELECTROLYTE PANEL Routine 05/18/2020 10:31 In[address]ating duct R esults for this AM [employer]ICER carcinoma of upper procedure are in outer quadrant of the result s left female coral st section. Drug-induced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 Encounter for antineoplastic chemotherapy Anemia, not otherwise specified BLOOD UREA NITROGEN Routine 05/18/2020 10:31 Infil[address]ating duct Results for this AM [employer]ER carcinoma of upper procedure are in outer quadrant of the result s left female coral st section. Drug-induced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 Encounter for antineoplastic chemotherapy Anemia, not otherwise specified GLUCOSE LEVEL Routine 05/18/2020 10:31 Infiltrating duct Resul ts for this AM [employer] OFFICER carcinoma of upper procedure are in outer quadrant of the result s left female coral st section. Drug-induced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 Encounter for antineoplastic chemotherapy Anemia, not otherwise specified MANUAL DIFFERENTIAL Routine 05/18/2020 10:31 Infiltrating duct Results for this AM [employer]ICER carcinoma of upper procedure are in outer quadrant of the result s left female coral [address] section. Drug-induced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 Encounter for antineoplastic chemotherapy Anemia, not otherwise specified Results CBC Routine 05/18/2020 10:31 Infiltrating duct Result s for this AM [employer]ICER carcinoma of upper procedure are in outer quadrant of the result s left female coral st section. Drug-induced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 Encounter for antineoplastic chemotherapy Anemia, not otherwise specified VITAMIN D 25 HYDROXY Routine 05/18/2020 10:31 Infiltrating ramakrishna t Results for this LEVEL AM [employer]ICER carcinoma of upper procedure are in outer quadrant of the result s left female coral st section. Drug-induced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 Encounter for antineoplastic chemotherapy Anemia, not otherwise specified LACTATE DEHYDROGENASE Routine 05/18/2020 10:[address] Results for this AM [employer]ICER carcinoma of upper procedure are in outer quadrant of the result s left female coral st section. Drug-induced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 Encounter for antineoplastic chemotherapy Anemia, not otherwise specified PHOSPHORUS LEVEL Routine 05/18/2020 10:31 Infiltrating duct Re sults for this AM [employer] OFFICER carcinoma of upper procedure are in outer quadrant of the result s left female coral st section. Drug-induced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 Encounter for antineoplastic chemotherapy Anemia, not otherwise specified MAGNESIUM LEVEL Routine 05/18/2020 10:31 Infiltrating duct Res ults for this AM [employer] OFFICER carcinoma of upper procedure are in outer quadrant of the result s left female coral st section. Drug-induced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 Encounter for antineoplastic chemotherapy Anemia, not otherwise specified COMPREHENSIVE METABOLIC Routine 05/18/2020 10:31 Infil[address]ating duct PANEL AM [employer] OFFICER carcinoma of upper outer quadrant of left female coral st Drug-induced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 Encounter for antineoplastic chemotherapy Anemia, not otherwise specified COMPLETE BLOOD COUNT W/ Routine 05/18/2020 10:31 Infil[address]ating duct DIFFERENTIAL AM [employer] OFFICER carcinoma of upper outer quadrant of left female [address] Drug-induced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 Encounter for antineoplastic chemotherapy Anemia, not otherwise specified after 05/01/2020 Results .Serum Creatinine (03/06/2021 6:59 AM SENIOR CREDIT OFFICER)Only the most recent of4 results within the time period is included. Pathologist Sig bryan Creatinine 0.69Comment: Testing 0.51 - 0.95 mg/dL COHASSET performed at [facility], [address] [place] [id number] Specimen Blood Performing Organization Address City/State/ZIP Code Phon e Number [place], [place] [id number] [place] [address] (ABNORMAL) .CBC (03/06/2021 6:59 AM SENIOR CREDIT OFFICER)Only the most recent of4 resultswithin the time period is included. Pathologist Sig bryan WBC 5.1Comment: All 4.0 - 11.0 K/uL COHASSET components of the CBC performed at [facility], [address] [place], [place] [id number] RBC 4.32Comment: All 4.00 - 5.50 COHASSET components of the CBC M/uL performed at [facility], [address] [place] [address] Hgb 13.5Comment: As part 12.0 - 16.0 COHASSET of CBC or as an gm/dL individual orderable testing performed at [facility], [address] [place] [address] Hct 40.4Comment: As part 37.0 - 47.0 % COHASSET of CBC testing performed at [facility], [address] [place] [address] MCV 94Comment: As part of 82 - 98 fL COHASSET CBC testing performed at [facility], [address] [place] [address] MCH 31.3 (H)Comment: As 27.0 - 31.0 pg COHASSET part of CBC testing performed at [facility], [address] [place] [address] MCHC 33.4Comment: As part 31.0 - 36.0 COHASSET of CBC testing gm/dL performed at [facility], [address] [place] [address] RDW-SD 42.9Comment: As part 35.1 - 46.3 fL COHASSET of CBC testing performed at [facility], [address] [place] [address] RDW-CV 12.6Comment: As part 12.0 - 15.5 % COHASSET of CBC testing performed at [facility], [address] [place], [place] [id number] Platelet count 261Comment: As part 140 - 440 K/uL COHASSET of CBC or an individual orderable testing performed at [facility], [address] [place] [address] MPV 9.4Comment: As part 4.0 - 10.4 fL COHASSET of CBC testing performed at [facility], [address] [place] [address] Specimen Blood Performing Organization Address City/State/ZIP Code Phon e Number [facility] [place] [address] [address] [facility] Glomerular Filtration Rate (03/06/2021 6:59 AM SENIOR CREDIT OFFICER)Only the most recent of4 resultswithin the time period is included. [facility] nature eGFR-AA 114 >=60 mL/min/1.73 COHASSET Comment: sq. m Normal eGFR >= 60 mL/min/1.73 m2 Note: The eGFR is calculated using the CKD-EPI equation. The eGFR declines with age. eGFR <60 mL/min/1.73 m2 is considered as "decreased". This equation should only be used for patients 18 and older. According to the [employer] [facility]'s Kidney Disease Outcome Quality Initiative (KDOQI) classification [...] 5 Kidney failure <15 Testing performed at [facility], [address] [place] [id number] eGFR-BRANDEN 99 >=60 mL/min/1.73 COHASSET Comment: sq. m Normal eGFR >= 60 mL/min/1.73 m2 Note: The eGFR is calculated using the CKD-EPI equation. The eGFR declines with age. eGFR <60 mL/min/1.73 m2 is considered as "decreased". This equation should only be used for patients 18 and older. According to the [facility]'s Kidney Disease Outcome Quality Initiative (KDOQI) classification [...] 5 Kidney failure <15 Testing performed at [facility], [address] [place] [address] Specimen Blood Performing Organization Address City/State/[place] [address] [place] [address] Fractionated Bilirubin (03/06/2021 6:59 AM SENIOR CREDIT OFFICER)Only the most recent of4 results within the time period is included. Bili Total 0.3 <=1.2 mg/dL [place] Comment: Indocyanine Green (ICG) may cause falsely elevated bilirubin results. Total and direct bilirubin must not be measured from samples containing indocyanine green. False elevation of total michael irubin can be seen in patients with IgG concentrations above 28 g/L. Testing performed at [facility], [address] [place] [address] Bili Direct <0.2 <=0.3 mg/dL [place] Comment: Indocyanine Green (ICG) may cause falsely elevated bilirubin results. Total and direct bilirubin must not be measured from samples containing indocyanine green. Testing performed at [facility], [address] [place] [address] Bili Indirect See Note 0.0 - 0.9 [place] Comment: mg/dL Unable to calculate Indirect Bilirubin result due to some parameters are outside reportable range Testing performed at [facility], [address] [place] [address] 71310 Specimen Blood Performing Organization Address City/[facility]/[place] [address] [place] [address] (ABNORMAL) Vitamin D 25OH (03/06/2021 6:59 AM SENIOR CREDIT OFFICER)Only the most recent of4 resultswithin the time period is included. Pathologist Sig nature Vitamin D 25 OH 22 (L) 30 - 100 ng/mL [place] Comment: Reference Range: Deficiency: <10 ng/mL Insufficiency: 10-29 ng/mL Sufficiency: 30-100 ng/mL Potential toxicity: >100 ng/mL Testing performed at [facility], [address] [place] [address] Specimen Blood Performing Organization Address City/State/[place] [address] [place] [address] (ABNORMAL) Differential (03/06/2021 6:59 AM SENIOR CREDIT OFFICER)Only the most recent of4 resultswithin the time period is included. Neutrophil % 61.9Comment: All 42.0 - 66.0 % [place] components of the Differential performed at [facility], [address] [place] [address], [place] [address] Lymphocyte % 22.6 (L)Comment: As 24.0 - 44.0 % [place] part of the Differential testing performed at [facility], [address] [place], [place] [id number] Monocyte % 11.0 (H)Comment: As 2.0 - 7.0 % [place] part of the Differential testing performed at [facility], [address] [place] [address] Eosinophil % 3.3Comment: As part of 1.0 - 4.0 % [place] the Differential testing performed at [facility], [address] [place] [address] 90693 Basophil % 0.6Comment: As part of 0.0 - 1.0 % [place] the Differential testing performed at [facility], [address] [place] [address], [place] [address] IGRE % 0.6 (H) 0.0 - 0.4 % [place] Comment: IGRE % count includes Metamyelocytes, Myelocytes, and Promyelocytes. As part of the Differential testing performed at [facility], [address] [place] [address], [place] [address] Neutrophil Abs 3.15Comment: As part 1.70 - 7.30 [place] of the Differential K/uL testing performed at [facility], [address] [place] [address] Lymphocyte Abs 1.15Comment: As part 1.00 - 4.80 [place] of the Differential K/uL testing performed at [facility], [address] [place] [address] 79165 Monocyte Abs 0.56Comment: As part 0.08 - 0.70 [place] of the Differential K/uL testing performed at [facility], [address] [place] [address] 97536 Eosinophil Abs 0.17Comment: As part 0.04 - 0.40 [place] of the Differential K/uL testing performed at [facility], [address] [place] [address] Basophil Abs 0.03Comment: As part 0.00 - 0.10 [place] of the Differential K/uL testing performed at [facility], [address] [place] [address] IG Abs 0.03Comment: As part 0.00 - 0.04 [place] of the Differential K/uL testing performed at [facility], [address] [place] [address] Specimen Blood Performing Organization Address City/[facility]/ZIP Code Phon e Number [address] BUN (03/06/2021 6:59 AM SENIOR CREDIT OFFICER)Only the most recent of4 resultswithin the time period is included. Pathologist Sig nature BUN 8Comment: Testing performed 6 - 23 mg/dL [facility], [address] [place] [address] Specimen Blood Performing Organization Address City/State/ZIP Code Phon e Number [address] (ABNORMAL) ALT (03/06/2021 6:59 AM SENIOR CREDIT OFFICER)Only the most recent of4 resultswithin the time period is included. Pathologist Sig nature ALT 36 (H)Comment: Testing <=33 U/L [place] performed at [facility], [address] [place] [address] Specimen Blood Performing Organization Address City/State/ZIP Code Phon e [address] Aspartate Aminotransferase (03/06/2021 6:59 AM SENIOR CREDIT OFFICER)Only the most recent of4 resultswithin the time period is included. Pathologist Sig nature AST 27Comment: Testing performed <=32 U/L [facility], [address] [place] [address] 90434 Specimen Blood Performing Organization Address City/[facility] Phon e Number [place], [place] [id number] [place] [address] Total Protein (03/06/2021 6:59 AM SENIOR CREDIT OFFICER)Only the most recent of4 resultswithin the time period is included. Pathologist Sig nature Total Protein 6.6Comment: Testing 6.4 - 8.3 g/dL [place] performed at [facility], [address] [place] [address] 33548 Specimen Blood Performing Organization Address City/[facility] Code Phon e Number [place], [place] [address] [place] [address] Phosphorus Level (03/06/2021 6:59 AM SENIOR CREDIT OFFICER)Only the most recent of4 resultswithin the time period is included. Pathologist Sig nature Phosphorus 3.5Comment: Testing 2.5 - 4.5 mg/dL [place] performed at [facility], [address] [place] [address]18 Specimen Blood Performing Organization Address City/[facility] Code Phon e Number [place], [place] [address] [place] [address] (ABNORMAL) Alkaline Phosphatase (03/06/2021 6:59 AM SENIOR CREDIT OFFICER)Only the most recent of 4 resultswithin the time period is included. Pathologist Sig nature Alk Phos 117 (H)Comment: Testing 35 - 104 U/L [place] performed at [facility], [address] [place] [address] 9[address] Specimen Blood Performing Organization Address City/[facility]/[place] [address] [place] [address] Magnesium Level (03/06/2021 6:59 AM SENIOR CREDIT OFFICER)Only the most recent of4 resultswithin the time period is included. Pathologist Sig nature Magnesium 1.9Comment: Testing 1.6 - 2.6 mg/dL [place] performed at [facility], [address] [place] [address]27 Specimen Blood Performing Organization Address City/[facility]/[place] [address] [place] [address] (ABNORMAL) LDH (03/06/2021 6:59 AM SENIOR CREDIT OFFICER)Only the most recent of4 resultswithin the time period is included. Pathologist Sig nature LDH 284 (H) 135 - 214 U/L [place] Comment: Results greater than 1651 U/ L may not be reliable due to matrix effect with extended dilution as it exceeds the methods time analyst s recommended limit. Caution should be exercised when interpreting such donnell ues and done in conjunction with clinical context. Testing performed at [facility], [address] [place] [address] 67379 Specimen Blood Performing Organization Address City/[facility] Phon e Number [place], [place] [address] [place] [address] (ABNORMAL) Glucose Level (03/06/2021 6:59 AM SENIOR CREDIT OFFICER)Only the most recent of4 resultswithin the time period is included. Pathologist Sig nature Glucose Level 103 (H) 70 - 99 mg/dL [place] Comment: Effective 10/17/15, the gluco se reference intervals have been updated based on [place] Diabetes Association guidelines (Standards of Medical Care in Diabetes 2016. Diabetes Care 2016; 39: S13-S22). Fasting blood glucose: Normal: 70-99 mg/dL Impaired fasting glucose (in creased risk for diabetes or pre-diabetes): 100- 125 mg/dL Diabetes mellitus: >/=126 mg/dL Random blood glucose: Normal: 70-199 mg/dL Note: Random glucose >100 mg/dL is assoc iated with increased risk for diabetes Testing performed at [facility], [address] [place] [address]28 Specimen Blood Performing Organization Address City/[facility]/[place] [address] [place] [address] Calcium Level (03/06/2021 6:59 AM SENIOR CREDIT OFFICER)Only the most recent of4 resultswithin the time period is included. Pathologist Sig nature Calcium Lvl 8.8Comment: Testing 8.4 - 10.2 mg/dL [place] performed at [facility], [address] [place] [address]195 Specimen Blood Performing Organization Address City/[facility]/[place] [address] [place] [address] Albumin Level (03/06/2021 6:59 AM SENIOR CREDIT OFFICER)Only the most recent of4 resultswithin the time period is included. Pathologist Sig nature Albumin Lvl 4.3Comment: Testing 3.5 - 5.2 gm/dL [place] performed at [facility], [address] [place] [address]10 Specimen Blood Performing Organization Address City/[facility] [place] [address] [place] [address] Electrolyte Panel (03/06/2021 6:59 AM SENIOR CREDIT OFFICER)Only the most recent of4 results within the time period is included. Pathologist Sig nature Sodium Lvl 143Comment: Testing 136 - 145 mEq/L [place] performed at [facility], [address] [place] [address] 18411 Potassium Lvl 3.8Comment: Testing 3.5 - 5.1 mEq/L [place] performed at [facility], [address] [place] [address] 23182 Chloride 106Comment: Testing 98 - 107 mEq/L [place] performed at [facility], [address] [place] [address] 35629 CO2 27Comment: Testing 22 - 29 mEq/L [place] performed at [facility], [address] [place] [address] 98473 Anion Gap 10Comment: Testing 4 - 14 mEq/L [place] performed at [facility], [address] [place] [address] 57487 Specimen Blood Performing Organization Address City/[facility] [place] [address] [place] [address] NM Bone Scan Whole Body (08/15/2020 12:04 PM CDT) Specimen Impressions [id number] - 08/15/2020 12:10 PM CDT No scintigraphic evidence of osseous met astatic disease. Narrative [id number] - 08/15/2020 12:10 PM CDT FULL RESULT: [...] Organization Address City/State/ZIP Code Phon e Number [id number] CT Chest Abdomen Pelvis with Contrast (08/15/2020 11:40 AM CDT) Specimen Impressions [id number] - 08/15/2020 12:06 PM CDT Incidental findings and postsurgical nani nges as described above without evidence of local disease recurrence or metastasis within the thorax, abdomen and pelvis. Narrative [id number] - 08/15/2020 12:06 PM CDT FULL RESULT: [...] thorax, abdomen and pelvis. Performing Organization Address City/[facility]/ZIP Code Phon e Number [id number] Uric Acid (08/15/2020 9:11 AM CDT) Pathologist Sig nature Uric Acid 5.5Comment: Testing 2.4 - 5.7 mg/dL [place] performed at [facility], [address] [place] [address]47 Specimen Blood Performing Organization Address City/State/[place] [address] [place] [address] (ABNORMAL) COVID-19 (HAWK-CoV-2) PCR Asymptomatic (05/24/2020 3:43 PM SENIOR CREDIT OFFICER) COVID19 SARS Pre-Radiation Therapy [facility] [place] COVID19 SARS Result Detected (C) Not Detected [facility] COVID19 SARS SARS-CoV-2 Detected. [facility] [place] Reference Range: Not Detected Methodology: The Pak Real Time SARS-CoV-2 assay is a qualitative real-time reverse chemistry account manager polymerase chain reaction (box toe stitcher-PCR) test to detect RNA from SARS-CoV-2 in nasal, nasopharyngeal and oropharyngeal swabs from patients with signs and symptoms of infection who ar e suspected of COVID-19 by their health care provider. The Pak RealTime SARS-CoV-2 performed on the Quest app000 System is a dual target assay with [...] high- complexity Molecular Diagnostics Laboratory (MDL) at [facility] under the Food and Drug Administration (FDA) s Emergency Use Authorization. Factsheet for patients: https://www.[facility].org/Abb ottFactSheetPatients Factsheet for healthcare pro viders: https://www.[facility].org/AbbottFactSheetHCP Test performed by: [facility] [address] [place] [address] Specimen Nasopharyngeal Swab Performing Organization Address City/State/ZIP Code Phon e Number [facility] Unless otherwise noted, [place] [address] CENTER all lab tests performed by: Division of Pathology and Laboratory Medicine [address] [facility] DEXA Bone Mineral Density Both Hips and Spine (05/18/2020 10:45 AM SENIOR CREDIT OFFICER) Specimen Impressions [id number] - 05/18/2020 12:48 PM SENIOR CREDIT OFFICER Osteopenia based on measurements in the lumbar spine I personally reviewed these image(s) phuong baca with the resident's/fellow's interpretations, certify that if a procedure was performed I was physically present, and agree with the final report. Narrative [id number] - 05/18/2020 12:48 PM SENIOR CREDIT OFFICER FULL RESULT: Examination: Bone Mineral Density (DXA), [...] final report. Performing Organization Address City/State/ZIP Code [facility] e Number [id number] after 05/01/2020 Care Teams Boatswain Mate Relationship Specialty Start Date End Date Justin Smith MD PCP - General Medical Oncology 09/27/19 [facility] [place] [address] Meghann Daigle PCP - External Referring Surgical Oncology 09/27/19 MD Saba Calixto Arroyo PCP - External Follow Up 05/18/20 MD Vidal Ortega [place], [place] [id number]
--- OUTSIDE RECORDS SUMMARY | 2021-05-01 12:34 | XMS REPORT | Continuity of Care Document ---
:1965 Author Organization [facility] t Address [address] [place] [address] Care Team Providers Name Role Phone Maribell ALFARO Primary Care Physician Unavailable Manuel Veliz Attending Clinician Unavailable [place] Attending Clinician Unavailable Shreya BLAKELY Attending Clinician Unavailable SYSTEM, NOT IN [...] Attending Clinician Maryam COLE Attending Clinician Unavailable Elodia Gan RN Attending Clinician Unavailable Only, Test Attending Clinician Unavailable Latrell CASTILLO Attending Clinician Unavailable Deangelo MONTEJO Attending Clinician Edith CAMPOVERDE Attending Clinician Unavailable Only, Test Attending Clinician Unavailable Marlen Knight LMSW Attending Clinician Unavailable RADIOLOGY Attending Clinician Unavailable Radiology Attending Clinician Unavailable Pob, Lab Main Attending Clinician Unavailable Santiago Carr MD Attending Clinician 1, Lab Attending Clinician Unavailable Shreya BLAKELY Admitting Clinician Unavailable Shreya Blakely MD Admitting Clinician Maribell ALFARO Admitting Clinician Unavailable Payers Payer Name Policy Type Policy Number Effective Date Expiration Date S ource [place] [id number] 2014 00:00:00 [place] [id number] 2020 00:00:00 Problems Condition Condition Condition Status Onset Resolution [...] (BMI 6-22 ity of 30-39.9) 30-39.9) 00:00: [address] Malignant Malignant Disease Active Overview: Univers neoplasm neoplasm 6-10 Formattin ity of of left of left 00:00: g of this [place] breast in breast in 00 note Medi ami female, female, might be Branch estrogen estrogen different receptor receptor from the positive, positive, original. unspecifie unspecifie Added d site of d site of automatic breast breast ally from request for surgery [id number] Type 2 Type 2 Disease Active 2014-03 Univers diabetes diabetes 1-11 ity of mellitus mellitus 00:00: [place] without without 00 Medical complicati complicati Br anch on on Essential Essential Disease Active 2014-03 Uni vers hypertensi hypertensi 1-11 it y of on on 00:00: [address] Vitamin D Vitamin D Disease Active Uni vers deficiency deficiency 3-26 it y of 00:00: [address] Abnormal Abnormal Disease Active Unive rs weight weight 3-17 ity of gain gain 00:00: [place] 00 Medical Branch Headache Headache Disease Active Overview: Un [place] 3-17 Formattin ity of 00:00: g of this [place] note Medical might be Branch different from the original. 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 Fatigue Fatigue Disease Active Univers 3-17 ity of 00:00: [place] [address] Medical Branch Allergies, Adverse Reactions, Alerts Allergy Allergy Status Severity Reaction(s) Onset Inactive Treating Comm ents Source Name Type Date Date Clinician NO KNOWN Drug Active Univers ALLERGIE Class ity of [facility] Branch Family History Family Member Diagnosis Comments Start Date Stop Date Source Maternal uncle Lung cancer MD [place] on Natural son Lymphoma MD [place] Social History Social Habit Start Date Stop Date Quantity Comments Source Exposure to Not sure University of SARS-CoV-2 [facility] (event) Branch Alcohol intake 2021-03-06 2021-03-06 Lifetime [...] Name Name pregabalin Yes Drug-induce TAKE 1 (LYRICA) 75 1-10 d CAPSULE BY An [...] mg 08:22: n tablet 11 ergocalcife 2020-03- Vitamin D 02213O Take 1 MD rol 2-15 03-04 deficiency, [...] TIMES DAILY ergocalcife 2020- No Vitamin D 75646Q Take 1 MD rol 9-17 11-07 deficiency, [...] 2020- No 2.5mg Take 2.5 MD (FEMARA) 9 11-30 mg by Anderso 2.5 mg 00:00: 00:00 mouth n tablet 00 :00 daily. pregabalin 2020- No Drug-induce TAKE 1 MD (LYRICA) 75 9- 10-07 d CAPSULE BY A nderso mg capsule 00:00: 00:00 polyneuropa MOUTH n 00 :00 thy THREE TIMES DAILY citalopram 2020- No Reactive TAKE 1 MD (CeleXA) 20 7-28 09-03 depression TABLET(20 Anderso mg tablet 00:00: 00:00 (situationa MG) BY n 00 :00 l) MOUTH DAILY pregabalin 2020- No Drug-induce TAKE 1 MD (LYRICA) 75 7-28 09- d CAPSULE BY A nderso mg capsule 00:00: 00:00 polyneuropa MOUTH n 00 :00 thy THREE TIMES DAILY busPIRone 2020- No 10mg Take 10 mg M D (BUSPAR) 10 08-15 05-26 by mouth And erso mg tablet 14:33: 00:00 daily. n 26 :00 citalopram 2020- No Reactive 20mg Take 1 MD (CeleXA) 20 5- 07-28 depression tablet (20 Anderso mg tablet 00:00: 00:00 (situationa mg) by n 00 :00 l) mouth daily. pregabalin 2020- No Drug-induce TAKE 1 MD (LYRICA) 75 5-17 07-28 d CAPSULE(50 A nderso mg capsule 00:00: [...] [place] tablet 13 daily. Medical Branch amitriptyli 2021-0 Yes 50mg Take 50 mg Univers ne [...] thy MOUTH THREE TIMES DAILY Linzess 290 0 Yes 1{capsu Take 1 M D mcg [...] hours as breast needed for moderate pain. gabapentin 2020- No Drug-induce 800mg Take 1 MD (NEURONTIN) 1-04 02-09 d tablet Elijah so 800 mg 00:00: 00:00 polyneuropa (800 mg) n tablet 00 :00 thy by mouth 3 (three) times a day. triamcinolo 2019-03 Yes Dermatitis, Apply MD ne - not topically Anderso (KENALOG) 00:00: otherwise to n ointment 00 specified affected 0.1% area(s) twice daily. zolpidem 2020-0 Yes 5mg Take 5 mg [...] mouth ity of tablet 19:24: as needed. [place] 55 Medical Branch topiramate 2020-0 Yes 25mg Take 25 mg U nivers 25 mg 7-30 by mouth. ity of tablet 19:24: [place] 55 Medical Branch zolpidem 2020-0 Yes 5mg [...] mouth ity of tablet 19:24: as needed. [place] [address] Medical Branch topiramate 2020-0 Yes 25mg Take 25 mg U nivers 25 mg 7-30 by mouth. ity of tablet 19:24: [place] [address] Medical Branch zolpidem 2020-0 Yes 5mg Take [...] mouth ity of tablet 19:24: as needed. [place] [address] Medical Branch topiramate 2020-0 Yes 25mg Take 25 mg U nivers 25 mg 7-30 by mouth. ity of tablet 19:24: [place] [address] Medical Branch zolpidem 2020-0 Yes 5mg Take [...] mouth ity of tablet 19:24: as needed. [place] [address] Medical Branch topiramate 2020-0 Yes 25mg Take 25 mg U nivers 25 mg 7-30 by mouth. ity of tablet 19:24: [place] [address] Medical Branch zolpidem 2020-0 Yes 5mg Take [...] mouth ity of tablet 19:24: as needed. [place] [address] Medical Branch topiramate 2020-0 Yes 25mg Take 25 mg U nivers 25 mg 7-30 by mouth. ity of tablet 19:24: [place] Medical Branch zolpidem 2020-0 Yes 5mg [...] mouth ity of tablet 19:24: as needed. [place] [address] Medical Branch topiramate 2020-0 Yes 25mg Take 25 mg U nivers 25 mg 7-30 by mouth. ity of tablet 19:24: [place] [address] Medical Branch metoprolol 2020-0 Yes 25mg Take [...] mouth ity of tablet 19:24: at [place] bedtime. Medical Branch busPIRone 2020-0 Yes 10mg Take 10 mg Un [place] 10 mg 7-30 by mouth ity of tablet 19:24: as needed. [place] [address] Medical Branch topiramate 2020-0 Yes 25mg Take 25 mg U nivers 25 mg 7-30 by mouth. ity of tablet 19:24: [place] [address] Medical Branch metoprolol 2020-0 Yes 25mg Take [...] by mouth ity of tablet 19:24: at [place] [address] bedtime. Medical Branch busPIRone 2020-0 Yes 10mg Take 10 mg Un [place] 10 mg 7-30 by mouth ity of tablet 19:24: as needed. [place] [address] Medical Branch topiramate 2020-0 Yes 25mg Take 25 mg U nivers 25 mg 7-30 by mouth. ity of tablet 19:24: [place] [address] Medical Branch metoprolol 2020-0 Yes 25mg Take [...] by mouth ity of tablet 19:24: at [place] [address] bedtime. Medical Branch busPIRone 2020-0 Yes 10mg Take 10 mg Un [place] 10 mg 7-30 by mouth ity of tablet 19:24: as needed. [place] [address] Medical Branch topiramate 2020-0 Yes 25mg Take 25 mg U nivers 25 mg 7-30 by mouth. ity of tablet 19:24: [place] [address] Medical Branch metoprolol 2020-0 Yes 25mg Take [...] by mouth ity of tablet 19:24: at [place] [address] bedtime. Medical Branch busPIRone 2020-0 Yes 10mg Take 10 mg Un [place] 10 mg 7-30 by mouth ity of tablet 19:24: as needed. [place] [address] Medical Branch topiramate 2020-0 Yes 25mg Take 25 mg U nivers 25 mg 7-30 by mouth. ity of tablet 19:24: [place] [address] Medical Branch metoprolol 2020-0 Yes 25mg Take [...] by mouth ity of tablet 19:24: at [place] [address] bedtime. Medical Branch busPIRone 2020-0 Yes 10mg Take 10 mg Un [place] 10 mg 7-30 by mouth ity of tablet 19:24: as needed. [place] [address] Medical Branch topiramate 2020-0 Yes 25mg Take 25 mg U nivers 25 mg 7-30 by mouth. ity of tablet 19:24: [place] [address] Medical Branch metoprolol 2020-0 Yes 25mg Take [...] by mouth ity of tablet 19:24: at [place] [address] bedtime. Medical Branch busPIRone 2020-0 Yes 10mg Take 10 mg Un [place] 10 mg 7-30 by mouth ity of tablet 19:24: as needed. [place] [address] Medical Branch topiramate 2020-0 Yes 25mg Take 25 mg U nivers 25 mg 7-30 by mouth. ity of tablet 19:24: [place] [address] Medical Branch lactated 2020-0 Yes 500mL at [...] [place] 19 5 doses, Medical Starting Branch [facility] 10/20/19 at 1334, Until Discontinu ed, Routine, Pain (scale 4-6), PACU traMADol 2020-0 Yes 50mg 50 mg, Univers (ULTRAM) 7-30 Oral, PRN, ity o f tablet 50 18:34: 1 dose, [place] mg 10 Starting Medical Digna Branch 10/20/19 at 1334, Until Discontinu ed, Routine, Pain (scale 7-10), DSU Recovery traMADol 2020-0 Yes 50mg 50 mg, Univers (ULTRAM) 10-19 Oral, PRN, ity o f tablet 50 18:34: 1 dose, [place] mg 10 Starting Medical Digna [place] 10/20/19 at 1334, Until Discontinu ed, Routine, Pain (scale 4-6), DSU Recovery ibuprofen 2020-0 Yes 800mg 800 mg, Univ ers (IBU) 10-19 Oral, PRN, ity of tablet 800 18:34: 1 dose, [place] mg 10 Starting Medical Digna [place] 10/20/19 at 1334, Until Discontinu ed, Routine, Pain (scale 1-3), DSU Recovery hydrogen 2020-0 Yes PRN, Univers peroxide 3 10-19 Starting ity o f % topical 17:37: Digna [place] solution 00 10/20/19 at Medic al 1237, Branch Until Discontinu ed, Routine, Intra-op heparin 2020-0 Yes PRN, Univers lock flush 10-19 Starting ity o f (HEPARIN 17:37: Digna [place] LOCKFLUSH(P 00 10/20/19 at [place] ORCINE)(PF) 1237, Branch ) 100 Until unit/mL Discontinu injection ed, Routine, Intra-op bupivacaine 2020-0 Yes PRN, Univer s (preserv 10-19 Starting ity of free) 0.5% 17:36: Digna [place] (SENSORCAIN 00 10/20/19 at [place] E MPF) 0.5 1236, Branch % (5 mg/mL) Intra-op 30 mL, NaCl 0.9% (NS) 30 mL lactated 2020-0 2020- No 1000mL at 20 [facility] rs ringers IV 10-19 07-30 mL/hr, ity of infusion 15:00: 15:09 1,000 mL, [place] as 1,000 mL 00 :00 IV Medical Infusion, Branch ONCE, 1 dose, Digna 10/20/19 at 1000, Routine, DSU Pre-op metoprolol 2020-0 Yes 25mg Take 25 mg U nivers tartrate 10-19 by mouth 2 ity o f (LOPRESSOR) 14:24: (two) [place] 25 mg 55 times Medical tablet daily. Branch phentermine 2020-0 Yes 37.5mg Take 37.5 Univers 37.5 mg 7-30 mg by ity of capsule 14:24: mouth [place] [address] every Medical morning. Branch traZODone 2020-0 Yes 50mg Take 50 mg Un [place] 50 mg 7-30 by mouth ity of tablet 14:24: at [place] [address] bedtime. Medical Branch busPIRone 2020-0 Yes 10mg Take 10 mg Un [place] 10 mg 7-30 by mouth ity of tablet 14:24: as needed. [place] [address] Medical Branch topiramate 2020-0 Yes 25mg Take 25 mg U nivers 25 mg 7-30 by mouth. ity of tablet 14:24: [place] [address] Medical Branch prochlorper 2020-0 Yes Infiltratin 10mg Take 1 MD azine 7-27 g duct tablet (10 [place] o (COMPAZINE) 00:00: carcinoma mg) by n 10 mg 00 of upper mouth tablet outer every 6 quadrant of (six) left female hours as breast needed for nausea or vomiting. lidocaine-p Yes Infiltratin Apply to MD rilocaine 7-27 [...] breast needed for nausea or vomiting. traMADol 0 2020- No Infiltratin 50mg Take 1 MD [...] 7-24 by mouth. ity of tablet 21:03: [place] 07 Medical Branch lisinopril 2020-0 Yes 20mg [...] mouth ity of tablet 21:02: as needed. [place] 37 Medical Branch lisinopril 2020-0 Yes 20mg [...] mouth ity of tablet 21:02: as needed. [place] 37 Medical Branch lisinopril 2020-0 Yes 20mg [...] mouth ity of tablet 21:02: as needed. [place] 37 Medical Branch amitriptyli 2020-0 Yes 50mg [...] mouth ity of tablet 18:26: as needed. [place] [address] Medical Branch topiramate 2020-0 Yes 25mg Take 25 mg U nivers 25 mg 7-06 by mouth. ity of tablet 18:26: [place] [address] Medical Branch zolpidem 2020-0 Yes 5mg Take [...] mouth ity of tablet 18:26: as needed. [place] [address] Medical Branch topiramate 2020-0 Yes 25mg Take 25 mg U nivers 25 mg 7-06 by mouth. ity of tablet 18:26: [place] [address] Medical Branch zolpidem 2020-0 Yes 5mg Take [...] mouth ity of tablet 18:26: as needed. [place] [address] Medical Branch topiramate 2020-0 Yes 25mg Take 25 mg U nivers 25 mg 7-06 by mouth. ity of tablet 18:26: [place] [address] Medical Branch zolpidem 2020-0 Yes 5mg Take [...] by mouth ity of tablet 18:26: at [place] [address] bedtime. Medical Branch busPIRone 2020-0 Yes 10mg Take 10 mg [place] 10 mg 7-06 by mouth ity of tablet 18:26: as needed. [place] [address] Medical Branch topiramate 2020-0 Yes 25mg Take 25 mg U nivers 25 mg 7-06 by mouth. ity of tablet 18:26: [place] [address] Medical Branch phentermine 2020-0 Yes 37.5mg Take 37.5 Univers 37.5 mg 7-06 mg by ity of capsule 18:26: mouth [place] 16 every Medical morning. Branch traZODone 2020-0 Yes 50mg Take 50 mg [place] 50 mg 7-06 by mouth ity of tablet 18:26: at [place] [address] bedtime. Medical Branch phentermine 2020-0 Yes 37.5mg Take 37.5 Univers 37.5 mg 7-06 mg by ity of capsule 18:26: mouth [place] [address] every Medical morning. Branch traZODone 2020-0 Yes 50mg Take 50 mg [place] 50 mg 7-06 by mouth ity of tablet 18:26: at [place] [address] bedtime. Medical Branch phentermine 2020-0 Yes 37.5mg Take 37.5 Univers 37.5 mg 7-06 mg by ity of capsule 18:26: mouth [place] 16 every Medical morning. Branch traZODone 2020-0 Yes 50mg Take 50 mg [place] 50 mg 7-06 by mouth ity of tablet 18:26: at [place] [address] bedtime. Medical Branch zolpidem 2020-0 Yes 5mg [...] mouth ity of tablet 18:27: as needed. [place] [address] Medical Branch topiramate 2020-0 Yes 25mg Take 25 mg U nivers 25 mg 6-25 by mouth. ity of tablet 18:27: [place] 13 Medical Branch zolpidem 2020-0 Yes 5mg [...] mg by ity of capsule 18:27: mouth [place] 13 every Medical morning. Branch traZODone 2020-0 Yes 50mg Take 50 mg [place] 50 mg 6-25 by mouth ity of tablet 18:27: at [place] [address] bedtime. Medical Branch busPIRone 2020-0 Yes 10mg Take 10 mg [place] 10 mg 6-25 by mouth ity of tablet 18:27: as needed. [place] [address] Medical Branch topiramate 2020-0 Yes 25mg Take 25 mg U nivers 25 mg 6-25 by mouth. ity of tablet 18:27: [place] [address] Medical Branch HYDROcodone 2020-0 Yes 1{tbl} 1 tablet, Univers -acetaminop 6-25 Oral, PRN, it y of hen (NORCO 17:07: 1 dose, [place] 5) 5-325 mg 51 Starting Medi ami tablet 1 Digna Branch tablet 09/15/19 at 1207, Until Discontinu ed, Routine, Pain (scale 4-6), DSU Recovery ibuprofen 2020-0 Yes 800mg 800 mg, Univ ers (IBU) 6-25 Oral, PRN, ity of tablet 800 17:07: 1 dose, [place] mg 51 Starting Medical Digna Branch 09/15/19 at 1207, Until Discontinu ed, Routine, Pain (scale 1-3), DSU Recovery HYDROmorpho 2020-0 Yes .2mg 0.2 mg, Uni vers ne 6-25 Slow IV ity of (DILAUDID) 17:07: Push, [place] injection 47 Q5MIN PRN, Medi ami 0.2 [...] 4 47 dose, Medical mg Starting Branch Digna 09/15/19 at 1207, Until Discontinu ed, Routine, Nausea and Vomiting (N/V), PACU hydralAZINE 2019-0 Yes 5mg 5 mg, Unive rs (APRESOLINE 25 Intravenou it y of ) injection 15:00: s, Q15MIN [place] 5 mg 01 PRN, 4 Medical doses, Branch Starting Digna 09/15/19 at 1000, Until Discontinu ed, Routine, Hypertensi on, SBP >160 or DBP >100 water for 2020-0 Yes PRN, Univers irrigation 09-14 Starting ity o f irrigation 14:17: Digna [place] solution 00 09/15/19 at Medic al 0917, Branch Until Discontinu ed, Routine, Intra-op bupivacaine 2019-0 Yes PRN, Univer s (preserv 09-14 Starting ity of free) 0.5% 14:07: Digna [place] (SENSORCAIN 00 09/15/19 at [place] E MPF) 0.5 0907, Branch % (5 mg/mL) Intra-op 30 mL, NaCl 0.9% (NS) 30 mL isosulfan 2020-0 Yes PRN, Univers blue 09-14 Starting ity of (LYMPHAZURI 13:57: Digna [place] N) 1 % 00 09/15/19 at Medical injection 0857, Branch Until Discontinu ed, Routine, Intra-op [place] 99m-garland. 2019-0 2020- No 1mCi 1 Unive rs sulfur 09-14- millicurie ity of colloid 13:45: 13:42 , [place] injection 1 00 :00 Intraderma Me dical millicurie l, ONCE, 1 Bra nch dose, Digna 09/15/19 at 0845, Routine gabapentin 2020-0 2020- No 600mg 600 mg, [place] (NEURONTIN) 09-14-25 Oral, ity of tablet 600 12:45: 13:00 ONCE, 1 [place] as mg 00 :00 dose, Digna Medical 09/15/19 at [place] [address], Routine, DSU Pre-op acetaminoph 2020- No 1000mg 1,000 mg, Univers en 09-14 Oral, ity of (TYLENOL) 12:45: 13:00 ONCE, 1 [place] tablet 00 :00 dose, Digna Medical 1,000 mg 09/15/19 at [place] [address], Routine, DSU Pre-op celecoxib 2020- No 200mg 200 mg, Uni vers (CELEBREX) 09-14 Oral, ity of capsule 200 12:45: 13:00 ONCE, 1 [place] mg 00 :00 dose, Digna Medical 09/15/19 at [place] [address], Routine, DSU Pre-op lactated 2020- No 1000mL at [address] [place] [address] rs ringers IV 09-14 mL/hr, ity of infusion 12:45: 13:01 1,000 mL, [place] as 1,000 mL 00 :00 IV Medical Infusion, [place] ONCE, 1 dose, Digna 09/15/19 at [facility], Routine, DSU Pre-op scopolamine 2019-0 Yes 1.5mg 1.5 mg, [place] transdermal 09-14 Topical, ity of (TRANSDERM- 12:42: Administer [place] SCOP) patch 16 over 72 Medic al 1.5 mg Hours, Branch Q72H, First dose on Digna 09/15/19 at [facility], Until Discontinu ed, Routine, DSU Pre-op HYDROcodone 2019-0 Yes [id number] 1{tbl} Take 1 Univers -acetaminop 6-25 tablet by ity of hen (NORCO) 00:00: mouth [place] 5-325 mg 00 every 6 Medical tablet (six) Branch hours as needed for Pain (scale 7-10). HYDROcodone 2020-0 Yes [id number] 1{tbl} Take 1 Univers -acetaminop 6-25 tablet by ity of hen (NORCO) 00:00: mouth [place] 5-325 mg 00 every 6 Medical tablet (six) Branch hours as needed for Pain (scale 7-10). HYDROcodone 2020-0 Yes [id number] 1{tbl} Take 1 Univers -acetaminop 6-25 tablet by ity of hen (NORCO) 00:00: mouth [place] 5-325 mg 00 every 6 Medical tablet (six) Branch hours as needed for Pain (scale 7-10). HYDROcodone 2020-0 Yes [id number] 1{tbl} Take 1 Univers -acetaminop 6-25 tablet by ity of hen (NORCO) 00:00: mouth [place] 5-325 mg 00 every 6 Medical tablet (six) Branch hours as needed for Pain (scale 7-10). HYDROcodone 2020-0 Yes [id number] 1{tbl} Take 1 Univers -acetaminop 6-25 tablet by ity of hen (NORCO) 00:00: mouth [place] 5-325 mg 00 every 6 Medical tablet (six) Branch hours as needed for Pain (scale 7-10). HYDROcodone 2020-0 Yes [id number] 1{tbl} Take 1 Univers -acetaminop 6-25 tablet by ity of hen (NORCO) 00:00: mouth [place] 5-325 mg 00 every 6 Medical tablet (six) Branch hours as needed for Pain (scale 7-10). HYDROcodone 2020-0 Yes [id number] 1{tbl} Take 1 Univers -acetaminop 6-25 tablet by ity of hen (NORCO) 00:00: mouth [place] 5-325 mg 00 every 6 Medical tablet (six) Branch hours as needed for Pain (scale 7-10). HYDROcodone 2020-0 Yes [id number] 1{tbl} Take 1 Univers -acetaminop 6-25 tablet by ity of hen (NORCO) 00:00: mouth [place] 5-325 mg 00 every 6 Medical tablet (six) Branch hours as needed for Pain (scale 7-10). HYDROcodone 2020-0 Yes [id number] 1{tbl} Take 1 Univers -acetaminop 6-25 tablet by ity of hen (NORCO) 00:00: mouth [place] 5-325 mg 00 every 6 Medical tablet (six) Branch hours as needed for Pain (scale 7-10). HYDROcodone 2020-0 Yes [id number] 1{tbl} Take 1 Univers -acetaminop 6-25 tablet by ity of hen (NORCO) 00:00: mouth [place] 5-325 mg 00 every 6 Medical tablet (six) Branch hours as needed for Pain (scale 7-10). HYDROcodone 2020-0 Yes [id number] 1{tbl} Take 1 Univers -acetaminop 6-25 tablet by ity of hen ([employer]) 00:00: mouth [place] 5-325 mg 00 every 6 Medical tablet (six) Branch hours as needed for Pain (scale 7-10). HYDROcodone 2020-0 Yes [id number] 1{tbl} Take 1 Univers -acetaminop 6-25 tablet by ity of hen (NORCO) 00:00: mouth [place] 5-325 mg 00 every 6 Medical tablet (six) Branch hours as needed for Pain (scale 7-10). HYDROcodone 2020-0 Yes [id number] 1{tbl} Take 1 Univers -acetaminop 6-25 tablet by ity of hen ([employer]) 00:00: mouth [place] 5-325 mg 00 every 6 Medical tablet (six) Branch hours as needed for Pain (scale 7-10). HYDROcodone 2020-0 Yes [id number] 1{tbl} Take 1 Univers -acetaminop 6-25 tablet by ity of hen ([employer]) 00:00: mouth [place] 5-325 mg 00 every 6 Medical tablet (six) Branch hours as needed for Pain (scale 7-10). HYDROcodone 2020-0 Yes [id number] 1{tbl} Take 1 Univers -acetaminop 6-25 tablet by ity of hen ([employer]) 00:00: mouth [place] 5-325 mg 00 every 6 Medical tablet (six) Branch hours as needed for Pain (scale 7-10). HYDROcodone 2020-0 Yes [id number] 1{tbl} Take 1 Univers -acetaminop 6-25 tablet by ity of hen ([employer]) 00:00: mouth [place] 5-325 mg 00 every 6 Medical tablet (six) Branch hours as needed for Pain (scale 7-10). HYDROcodone 2020-0 Yes [id number] 1{tbl} Take 1 Univers -acetaminop 6-25 tablet by ity of hen (NORCO) 00:00: mouth [place] 5-325 mg 00 every 6 Medical tablet (six) Branch hours as needed for Pain (scale 7-10). HYDROcodone 2020-0 Yes [id number] 1{tbl} Take 1 Univers -acetaminop 6-25 tablet by ity of hen (NORCO) 00:00: mouth [place] 5-325 mg 00 every 6 Medical tablet (six) Branch hours as needed for Pain (scale 7-10). HYDROcodone 2020-0 Yes [id number] 1{tbl} Take 1 Univers -acetaminop 6-25 tablet by ity of hen (NORCO) 00:00: mouth [place] 5-325 mg 00 every 6 Medical tablet (six) Branch hours as needed for Pain (scale 7-10). HYDROcodone 2020-0 Yes [id number] 1{tbl} Take 1 Univers -acetaminop 6-25 tablet by ity of hen (NORCO) 00:00: mouth [place] 5-325 mg 00 every 6 Medical tablet (six) Branch hours as needed for Pain (scale 7-10). HYDROcodone 2020-0 Yes [id number] 1{tbl} Take 1 Univers -acetaminop 6-25 tablet [...] 6-19 by mouth. ity of tablet 21:35: [place] 15 Medical Branch zolpidem 2020-0 Yes 5mg [...] 6-19 by mouth. ity of tablet 21:35: [place] 15 Medical Branch lisinopril 2020-0 Yes 20mg [...] mouth ity of tablet 21:33: as needed. [place] 58 Medical Branch lisinopril 2020-0 Yes 20mg Take [...] mouth ity of tablet 21:33: as needed. [place] [address] Medical Branch topiramate 2020-0 Yes 25mg Take 25 mg U nivers 25 mg 6-10 by mouth. ity of tablet 18:46: [place] [address] Medical Branch topiramate 2020-0 Yes 25mg Take 25 mg U nivers 25 mg 6-10 by mouth. ity of tablet 18:46: [place] [address] Medical Branch topiramate 2020-0 Yes 25mg Take 25 mg U nivers 25 mg 6-10 by mouth. ity of tablet 18:46: [place] [address] Medical Branch topiramate 2020-0 Yes 25mg Take 25 mg U nivers 25 mg 6-10 by mouth. ity of tablet 18:46: [place] [address] Medical Branch topiramate 2020-0 Yes 25mg Take 25 mg U nivers 25 mg 6-10 by mouth. ity of tablet 18:46: [place] [address] Medical Branch zolpidem 2020-0 Yes 5mg Take [...] mouth ity of tablet 18:44: as needed. [place] [address] Medical Branch zolpidem 2020-0 Yes 5mg Take [...] mouth ity of tablet 18:44: as needed. [place] [address] Medical Branch zolpidem 2020-0 Yes 5mg Take [...] 2020-0 Yes 50mg Take 50 mg Un [place] 50 mg 6-10 by mouth ity of tablet 18:44: at [place] 57 bedtime. Medical Branch busPIRone 2020-0 Yes 10mg Take 10 mg [place] 10 mg 6-10 by mouth ity of tablet 18:44: as needed. [place] [address] Medical Branch zolpidem 2020-0 Yes 5mg Take [...] mouth ity of tablet 18:44: as needed. [place] 57 Medical Branch lisinopril 2020-0 Yes 20mg [...] HCl HCl 6-10 [facility]: [facility] busPIRone 2020-0 Yes as needed. [place] 7.5 mg 6-10 ity of tablet 00:00: [place] Medical Branch busPIRone 2020-0 Yes as needed. [place] 7.5 mg 6-10 ity of tablet 00:00: [place] Medical Branch busPIRone 2020-0 Yes as needed. [place] 7.5 mg 6-10 ity of tablet 00:00: [place] Medical Branch busPIRone 2020-0 Yes as needed. [place] 7.5 mg 6-10 ity of tablet 00:00: [place] Medical Branch busPIRone 2020-0 Yes as needed. [place] 7.5 mg 6-10 ity of tablet 00:00: [place] Medical Branch busPIRone 2020-0 Yes as needed. [place] 7.5 mg 6-10 ity of tablet 00:00: [place] Medical Branch busPIRone 2020-0 Yes as needed. [place] 7.5 mg 6-10 ity of tablet 00:00: [place] [facility] busPIRone 2020-0 Yes as needed. [place] 7.5 mg 6-10 ity of tablet 00:00: [place] [facility] busPIRone 2020-0 Yes as needed. [place] 7.5 mg 6-10 ity of tablet 00:00: [place] [facility] busPIRone 2020-0 Yes as needed. [place] 7.5 mg 6-10 ity of tablet 00:00: 00 [facility] busPIRone 2020-0 Yes as needed. [place] 7.5 mg 6-10 ity of tablet 00:00: 00 [facility] busPIRone 2020-0 Yes as needed. [place] 7.5 mg 6-10 ity of tablet 00:00: [facility] busPIRone 2020-0 Yes as needed. [place] 7.5 mg 6-10 ity of tablet 00:00: [facility] busPIRone 2020-0 Yes as needed. [place] 7.5 mg 6-10 ity of tablet 00:00: [facility] busPIRone 2020-0 Yes as needed. [place] 7.5 mg 6-10 ity of tablet 00:00: [facility] busPIRone 2020-0 Yes as needed. [place] 7.5 mg 6-10 ity of tablet 00:00: [facility] busPIRone 2020-0 Yes as needed. [place] 7.5 mg 6-10 ity of tablet 00:00: [facility] busPIRone 2020-0 Yes as needed. [place] 7.5 mg 6-10 ity of tablet 00:00: [facility] busPIRone 2020-0 Yes as needed. [place] 7.5 mg 6-10 ity of tablet 00:00: [facility] busPIRone 2020-0 Yes as needed. [place] 7.5 mg 6-10 ity of tablet 00:00: [facility] busPIRone 2020-0 Yes as needed. [place] 7.5 mg 6-10 ity of tablet 00:00: [facility] busPIRone 2020-0 Yes as needed. [place] 7.5 mg 6-10 ity of tablet 00:00: [facility] busPIRone 2020-0 Yes as needed. [place] 7.5 mg 6-10 ity of tablet 00:00: [facility] busPIRone 2020-0 Yes as needed. [place] 7.5 mg 6-10 ity of tablet 00:00: [facility] amLODIPine 2020-0 Yes 5mg Take 5 mg MD (NORVASC) 5 4-26 by mouth Ronald [facility]so mg tablet 00:00: daily. 00 amLODIPine 2020-0 Yes TK 1 T PO [place] 5 mg tablet 4-26 ONCE A DAY it y of 00:00: [place] [facility] amLODIPine 2020-0 Yes TK 1 T PO [place] 5 mg tablet 4-26 ONCE A DAY it y of 00:00: [facility] [place] [facility] amLODIPine 2020-0 Yes TK 1 T PO [place] 5 mg tablet 4-26 ONCE A DAY it y of 00:00: [place] [facility] amLODIPine 2020-0 Yes TK 1 T PO [place] 5 mg tablet 4-26 ONCE A DAY it y of 00:00: [place] [facility] amLODIPine 2020-0 Yes TK 1 T PO [place] 5 mg tablet 4-26 ONCE A DAY it y of 00:00: [place] [facility] amLODIPine 2020-0 Yes TK 1 T PO [place] 5 mg tablet 4-26 ONCE A DAY it y of 00:00: [place] [facility] amLODIPine 2020-0 Yes TK 1 T PO [place] 5 mg tablet 4-26 ONCE A DAY it y of 00:00: [place] [facility] amLODIPine 2020-0 Yes TK 1 T PO [place] 5 mg tablet 4-26 ONCE A DAY it y of 00:00: [place] [facility] amLODIPine 2020-0 Yes TK 1 T PO [place] 5 mg tablet 4-26 ONCE A DAY it y of 00:00: [facility] [place] [facility] amLODIPine 2020-0 Yes TK 1 T PO [place] 5 mg tablet 4-26 ONCE A DAY it y of 00:00: [place] [facility] amLODIPine 2020-0 Yes TK 1 T PO [place] 5 mg tablet 4-26 ONCE A DAY it y of 00:00: [place] [facility] amLODIPine 2020-0 Yes TK 1 T PO [place] 5 mg tablet 4-26 ONCE A DAY it y of 00:00: [place] [facility] amLODIPine 2020-0 Yes TK 1 T PO [place] 5 mg tablet 4-26 ONCE A DAY it y of 00:00: [place] [address] Medical Branch amLODIPine 2020-0 Yes TK 1 T PO [place] 5 mg tablet 4-26 ONCE A DAY it y of 00:00: [place] [facility] amLODIPine 2020-0 Yes TK 1 T PO [place] 5 mg tablet 4-26 ONCE A DAY it y of 00:00: [place] [facility] amLODIPine 2020-0 Yes TK 1 T PO [place] 5 mg tablet 4-26 ONCE A DAY it y of 00:00: [place] [facility] amLODIPine 2020-0 Yes TK 1 T PO [place] 5 mg tablet 4-26 ONCE A DAY it y of 00:00: [place] [facility] amLODIPine 2020-0 Yes TK 1 T PO [place] 5 mg tablet 4-26 ONCE A DAY it y of 00:00: [place] [facility] amLODIPine 2020-0 Yes TK 1 T PO [place] 5 mg tablet 4-26 ONCE A DAY it y of 00:00: [place] [facility] amLODIPine 2020-0 Yes TK 1 T PO [place] 5 mg tablet 4-26 ONCE A DAY it y of 00:00: [place] [facility] amLODIPine 2020-0 Yes TK 1 T PO [place] 5 mg tablet 4-26 ONCE A DAY it y of 00:00: [place] [facility] amLODIPine 2020-0 Yes TK 1 T PO [place] 5 mg tablet 4-26 ONCE A DAY it y of 00:00: [place] [facility] amLODIPine 2020-0 Yes TK 1 T PO [place] 5 mg tablet 4-26 ONCE A DAY it y of 00:00: [facility] [place] [facility] amLODIPine 2020-0 Yes TK 1 T PO [place] 5 mg tablet 4-26 ONCE A DAY it y of 00:00: [place] [facility] metoprolol 2020-0 Yes 25mg Take 25 mg M D tartrate 2-18 by mouth Anderso (LOPRESSOR) 00:00: twice n 25 mg 00 daily. tablet Simvastatin Simvastatin 2019-0 Yes Reema [address] [facility] [place] [facility] Crestor Crestor 2018- Yes Reema [address] [facility] [place] [facility] Zofran Zofran Yes Reema [address] [facility] [place] as needed [facility]: for [facility] 00 nausea/vom l [facility] Imitrex Imitrex Yes Reema as [facility] [place] [facility]: [facility] 00 [facility] Wellbutrin Wellbutrin 2018-0 Yes Reema [address] [facility] XL XL 4-20 [place] [facility]: morning [facility] 00 [facility] amitriptyli 2014-03 Yes 50mg Take [...] 20 21:45: daily. [place] mg tablet 31 [facility] metFORMIN 2014-03 Yes 500mg Take 500 Uni vers (GLUCOPHAGE 1-11 mg by ity of ) 500 mg 21:45: mouth [place] tablet 31 daily. [facility] lisinopril 2014-03 Yes 20mg Take 20 mg U nivers (PRINIVIL,Z 1-11 by mouth ity of ESTRIL) 20 21:45: daily. [place] mg tablet 31 [facility] metFORMIN 2014-03 Yes 500mg Take 500 Uni vers (GLUCOPHAGE 1-11 mg by ity of ) 500 mg 21:45: mouth [place] tablet 31 daily. [facility] lisinopril 2014-03 Yes 20mg Take 20 mg U nivers (PRINIVIL,Z 1-11 by mouth ity of ESTRIL) 20 21:45: daily. [place] mg tablet 31 [facility] metFORMIN 2014-03 Yes 500mg Take 500 Uni vers (GLUCOPHAGE 1-11 mg by ity of ) 500 mg 21:45: mouth [place] tablet 31 daily. [facility] lisinopril 2014-03 Yes 20mg Take 20 mg U nivers (PRINIVIL,Z 1-11 by mouth ity of ESTRIL) 20 21:45: daily. [place] mg tablet 31 [facility] metFORMIN 2014-03 Yes 500mg Take 500 Uni vers (GLUCOPHAGE 1-11 mg by ity of ) 500 mg 21:45: mouth [place] tablet 31 daily. [facility] lisinopril 2014-03 Yes 20mg Take 20 mg U nivers (PRINIVIL,Z 1-11 by mouth ity of ESTRIL) 20 21:45: daily. [place] mg tablet 31 [facility] metFORMIN 2014-03 Yes 500mg Take 500 Uni vers (GLUCOPHAGE 1-11 mg by ity of ) 500 mg 21:45: mouth [place] tablet 31 daily. [facility] lisinopril 2014-03 Yes 20mg Take 20 mg U nivers (PRINIVIL,Z 1-11 by mouth ity of ESTRIL) 20 21:45: daily. [place] mg tablet 31 [facility] metFORMIN 2014-03 Yes 500mg Take 500 Uni vers (GLUCOPHAGE 1-11 mg by ity of ) 500 mg 21:45: mouth [place] tablet 31 daily. [facility] lisinopril 2014-03 Yes 20mg Take 20 [...] 31 daily. Medical Branch clindamycin 2014-03 Yes [id number] 150mg Take 1 Cap Univers (CLEOCIN) 1-11 by mouth 3 ity of 150 mg 00:00: (three) [place] capsule 00 times Medical daily. Branch mupirocin 2014-03 Yes [id number] Apply to Univers (BACTROBAN 1-11 area(s) 3 ity of OINT) 2 % 00:00: (three) [place] ointment 00 times Medical daily. Branch clindamycin 2014-03 Yes [id number] 150mg Take 1 Cap Univers (CLEOCIN) 1-11 by mouth 3 ity of 150 mg 00:00: (three) [place] capsule 00 times Medical daily. Branch mupirocin 2014-03 Yes [id number] Apply to Univers (BACTROBAN 1-11 area(s) 3 ity of OINT) 2 % 00:00: (three) [place] ointment 00 times Medical daily. Branch clindamycin 2014-03 Yes [id number] 150mg Take 1 Cap Univers (CLEOCIN) 1-11 by mouth 3 ity of 150 mg 00:00: (three) [place] capsule 00 times Medical daily. Branch mupirocin 2014-03 Yes [id number] Apply to Univers (BACTROBAN 1-11 area(s) 3 ity of OINT) 2 % 00:00: (three) [place] ointment 00 times Medical daily. Branch clindamycin 2014-03 Yes [id number] 150mg Take 1 Cap Univers (CLEOCIN) 1-11 by mouth 3 ity of 150 mg 00:00: (three) [place] capsule 00 times Medical daily. Branch mupirocin 2014-03 Yes [id number] Apply to Univers (BACTROBAN 1-11 area(s) 3 ity of OINT) 2 % 00:00: (three) [place] ointment 00 times Medical daily. Branch clindamycin 2014-03 Yes [id number] 150mg Take 1 Cap Univers (CLEOCIN) 1-11 by mouth 3 ity of 150 mg 00:00: (three) [place] capsule 00 times Medical daily. Branch mupirocin 2014-03 Yes [id number] Apply to Univers (BACTROBAN 1-11 area(s) 3 ity of OINT) 2 % 00:00: (three) [place] ointment 00 times Medical daily. Branch clindamycin 2014-03 Yes [id number] 150mg Take 1 Cap Univers (CLEOCIN) 1-11 by mouth 3 ity of 150 mg 00:00: (three) [place] capsule 00 times Medical daily. Branch mupirocin 2014-03 Yes [id number] Apply to Univers (BACTROBAN 1-11 area(s) 3 ity of OINT) 2 % 00:00: (three) [place] ointment 00 times Medical daily. Branch clindamycin 2014-03 Yes [id number] 150mg Take 1 Cap Univers (CLEOCIN) 1-11 by mouth 3 ity of 150 mg 00:00: (three) [place] capsule 00 times Medical daily. Branch mupirocin 2014-03 Yes [id number] Apply to Univers (BACTROBAN 1-11 area(s) 3 ity of OINT) 2 % 00:00: (three) [place] ointment 00 times Medical daily. Branch clindamycin 2014-03 Yes [id number] 150mg Take 1 Cap Univers (CLEOCIN) 1-11 by mouth 3 ity of 150 mg 00:00: (three) [place] capsule 00 times Medical daily. Branch mupirocin 2014-03 Yes [id number] Apply to Univers (BACTROBAN 1-11 area(s) 3 ity of OINT) 2 % 00:00: (three) [place] ointment 00 times Medical daily. Branch clindamycin 2014-03 Yes [id number] 150mg Take 1 Cap Univers (CLEOCIN) 1-11 by mouth 3 ity of 150 mg 00:00: (three) [place] capsule 00 times Medical daily. Branch mupirocin 2014-03 Yes [id number] Apply to Univers (BACTROBAN 1-11 area(s) 3 ity of OINT) 2 % 00:00: (three) [place] ointment 00 times Medical daily. Branch clindamycin 2014-03 Yes [id number] 150mg Take 1 Cap Univers (CLEOCIN) 1-11 by mouth 3 ity of 150 mg 00:00: (three) [place] capsule 00 times Medical daily. Branch mupirocin 2014-03 Yes [id number] Apply to Univers (BACTROBAN 1-11 area(s) 3 ity of OINT) 2 % 00:00: (three) [place] ointment 00 times Medical daily. [place] clindamycin 2014-03 Yes [id number] 150mg Take 1 Cap Univers (CLEOCIN) 1-11 by mouth 3 ity of 150 mg 00:00: (three) [place] capsule 00 times Medical daily. [place] mupirocin 2014-03 Yes [id number] Apply to Univers (BACTROBAN 1-11 area(s) 3 ity of OINT) 2 % 00:00: (three) [place] ointment 00 times Medical daily. [place] clindamycin 2014-03 Yes [id number] 150mg Take 1 Cap Univers (CLEOCIN) 1-11 by mouth 3 ity of 150 mg 00:00: (three) [place] capsule 00 times Medical daily. Branch mupirocin 2014-03 Yes [id number] Apply to Univers (BACTROBAN 1-11 area(s) 3 ity of OINT) 2 % 00:00: (three) [place] ointment 00 times Medical daily. Branch clindamycin 2014-03 Yes [id number] 150mg Take 1 Cap Univers (CLEOCIN) 1-11 by mouth 3 ity of 150 mg 00:00: (three) [place] capsule 00 times Medical daily. Branch mupirocin 2014-03 Yes [id number] Apply to Univers (BACTROBAN 1-11 area(s) 3 ity of OINT) 2 % 00:00: (three) [place] ointment 00 times Medical daily. [place] clindamycin 2014-03 2020- No [id number] 150mg Take 1 Cap Univers (CLEOCIN) 1-11 06-19 by mouth 3 ity of 150 mg 00:00: 00:00 (three) [place] capsule 00 :00 times Medical daily. Branch mupirocin 2014-03 2020- No [id number] Apply to Univers (BACTROBAN 04-02 area(s) 3 ity of OINT) 2 % 00:00: 00:00 (three[place] oint[place] :00 times Medical daily. Branch levothyroxi 2014- Yes [id number] 50ug Take 1 Tab Univers ne 7-17 by mouth ity of (SYNTHROID) 00:00: every [place] 50 mcg 00 morning. Medical tablet Branch levothyroxi Yes [id number] 50ug Take 1 Tab Univers ne 7-17 by mouth ity of (SYNTHROID) 00:00: every [place] 50 mcg 00 morning. Medical tablet Branch levothyroxi Yes [id number] 50ug Take 1 Tab Univers ne 7-17 by mouth ity of (SYNTHROID) 00:00: every [place] 50 mcg 00 morning. Medical tablet Branch levothyroxi Yes [id number] 50ug Take 1 Tab Univers ne 7-17 by mouth ity of (SYNTHROID) 00:00: every [place] 50 mcg 00 morning. Medical tablet Branch levothyroxi Yes [id number] 50ug Take 1 Tab Univers ne 7-17 by mouth ity of (SYNTHROID) 00:00: every [place] 50 mcg 00 morning. Medical tablet Branch levothyroxi Yes [id number] 50ug Take 1 Tab Univers ne 7-17 by mouth ity of (SYNTHROID) 00:00: every [place] 50 mcg 00 morning. Medical tablet Branch levothyroxi 2014- Yes [id number] 50ug Take 1 Tab Univers ne 7-17 by mouth ity of (SYNTHROID) 00:00: every [place] 50 mcg 00 morning. Medical tablet Branch levothyroxi Yes [id number] 50ug Take 1 Tab Univers ne 7-17 by mouth ity of (SYNTHROID) 00:00: every [place] 50 mcg 00 morning. Medical tablet Branch levothyroxi 2014- Yes [id number] 50ug Take 1 Tab Univers ne 7-17 by mouth ity of (SYNTHROID) 00:00: every [place] 50 mcg 00 morning. Medical tablet Branch levothyroxi Yes [id number] 50ug Take 1 Tab Univers ne 7-17 by mouth ity of (SYNTHROID) 00:00: every [place] 50 mcg 00 morning. Medical tablet Branch levothyroxi 0 Yes [id number] 50ug Take 1 Tab Univers ne 7-17 by mouth ity of (SYNTHROID) 00:00: every [place] 50 mcg 00 morning. Medical tablet Branch levothyroxi 0 Yes [id number] 50ug Take 1 Tab Univers ne 7-17 by mouth ity of (SYNTHROID) 00:00: every [place] 50 mcg 00 morning. Medical tablet Branch levothyroxi Yes [id number] 50ug Take 1 Tab Univers ne 7-17 by mouth ity of (SYNTHROID) 00:00: every [place] 50 mcg 00 morning. Medical tablet Branch levothyroxi Yes [id number] 50ug Take 1 Tab Univers ne 7-17 by mouth ity of (SYNTHROID) 00:00: every [place] 50 mcg 00 morning. Medical tablet Branch levothyroxi Yes [id number] 50ug Take 1 Tab Univers ne 7-17 by mouth ity of (SYNTHROID) 00:00: every [place] 50 mcg 00 morning. Medical tablet Branch levothyroxi Yes [id number] 50ug Take 1 Tab Univers ne 7-17 by mouth ity of (SYNTHROID) 00:00: every [place] 50 mcg 00 morning. Medical tablet Branch levothyroxi Yes [id number] 50ug Take 1 Tab Univers ne 7-17 by mouth ity of (SYNTHROID) 00:00: every [place] 50 mcg 00 morning. Medical tablet Branch levothyroxi Yes [id number] 50ug Take 1 Tab Univers ne 7-17 by mouth ity of (SYNTHROID) 00:00: every [place] 50 mcg 00 morning. Medical tablet Branch levothyroxi Yes [id number] 50ug Take 1 Tab Univers ne 7-17 by mouth ity of (SYNTHROID) 00:00: every [place] 50 mcg 00 morning. Medical tablet Branch levothyroxi Yes [id number] 50ug Take 1 Tab Univers ne 7-17 by mouth ity of (SYNTHROID) 00:00: every [place] 50 mcg 00 morning. Medical tablet Branch levothyroxi Yes [id number] 50ug Take 1 Tab Univers ne 7-17 by mouth ity of (SYNTHROID) 00:00: every [place] 50 mcg 00 morning. Medical tablet Branch levothyroxi Yes [id number] 50ug Take 1 Tab Univers ne 7-17 by mouth ity of (SYNTHROID) 00:00: every [place] 50 mcg 00 morning. Medical tablet Branch levothyroxi Yes [id number] 50ug Take 1 Tab Univers ne 7-17 by mouth ity of (SYNTHROID) 00:00: every [place] 50 mcg 00 morning. Medical tablet Branch levothyroxi Yes [id number] 50ug Take 1 Tab Univers ne 7-17 by mouth ity of (SYNTHROID) 00:00: every [place] 50 mcg 00 morning. Medical tablet Branch levothyroxi Yes [id number] 50ug Take 1 Tab Univers ne 7-17 by mouth ity of (SYNTHROID) 00:00: every [place] 50 mcg 00 morning. Medical tablet Branch levothyroxi Yes [id number] 50ug Take 1 Tab Univers ne 7-17 by mouth ity of (SYNTHROID) 00:00: every [place] 50 mcg 00 morning. Medical tablet Branch levothyroxi Yes [id number] 50ug Take 1 Tab Univers ne 7-17 by mouth ity of (SYNTHROID) 00:00: every [place] 50 mcg 00 morning. Medical tablet Branch levothyroxi Yes [id number] 50ug Take 1 Tab Univers ne 7-17 by mouth ity of (SYNTHROID) 00:00: every [place] 50 mcg 00 morning. Medical tablet Branch levothyroxi Yes [id number] 50ug Take 1 Tab Univers ne 7-17 by mouth ity of (SYNTHROID) 00:00: every [place] 50 mcg 00 morning. Medical tablet Branch levothyroxi Yes [id number] 50ug Take 1 Tab Univers ne 7-17 by mouth ity of (SYNTHROID) 00:00: every [place] 50 mcg 00 morning. Medical tablet Branch levothyroxi Yes [id number] 50ug Take 1 Tab Univers ne 7-17 by mouth ity of (SYNTHROID) 00:00: every [place] 50 mcg 00 morning. Medical tablet Branch levothyroxi Yes [id number] 50ug Take 1 Tab Univers ne 7-17 by mouth ity of (SYNTHROID) 00:00: every [place] 50 mcg 00 morning. Medical tablet Branch levothyroxi Yes [id number] 50ug Take 1 Tab Univers ne 7-17 by mouth ity of (SYNTHROID) 00:00: every [place] 50 mcg 00 morning. Medical tablet Branch levothyroxi Yes [id number] 50ug Take 1 Tab Univers ne 7-17 by mouth ity of (SYNTHROID) 00:00: every [place] 50 mcg 00 morning. Medical tablet Branch levothyroxi Yes [id number] 50ug Take 1 Tab Univers ne 7-17 by mouth ity of (SYNTHROID) 00:00: every [place] 50 mcg 00 morning. Medical tablet Branch levothyroxi Yes 50ug Take 50 MD ne 7-17 mcg by Anderso (SYNTHROID, 00:00: mouth n LEVOTHROID) 00 daily. 50 mcg tablet levothyroxi Yes [id number] 50ug Take 1 Tab Univers ne 7-17 by mouth ity of (SYNTHROID) 00:00: every [place] 50 mcg 00 morning. Medical tablet Branch levothyroxi Yes [id number] 50ug Take 1 Tab Univers ne 7-17 by mouth ity of (SYNTHROID) 00:00: every [place] 50 mcg 00 morning. Medical tablet Branch pantoprazol Yes Univer s e 40 mg EC [...] 50 mg 5-29 ity of tablet 00:00: [place] 00 Medical Branch amitriptyli 0 Yes as needed. Univers ne 50 mg 5-29 ity of tablet 00:00: [place] 00 Medical Branch amitriptyli 0 2020- No as needed. Univers ne 50 mg 5-29 06-25 ity of tablet 00:00: 00:00 [place] 00 :00 Medical Branch amitriptyli 0 2020- No as needed. Univers ne 50 mg 5-29 06-25 ity of tablet 00:00: 00:00 [place] 00 :00 Medical Branch metoprolol Yes Univers tartrate 25 5-26 ity of mg tablet 00:00: [place] [facility] metoprolol Yes Univers tartrate 25 5-26 ity of mg tablet 00:00: [place] 00 Medical Branch metoprolol 2019- No Univer s tartrate 25 5- 06-25 ity of mg tablet 00:00: 00:00 [place] 00 :00 Medical Branch metoprolol 2019- No Univer s tartrate 25 5- 06-25 ity of mg tablet 00:00: 00:00 [place] 00 :00 Medical Branch zolpidem 2012-03- No 5mg Take 5 mg MD HERNANDEZ) 5 0-09 -17 by mouth Ronald rso mg tablet 00:00: [...] [facility] Metoprolol Metoprolol Yes Reema [address] [facility] Tartrate Tartrate [place] with food [facility] Metformin Metformin Yes Reema [address] [facility] HCl HCl [place] [facility] Protonix Protonix Yes Reema [address] [facility] Vitamin D3 Vitamin D3 Yes Reema [address] [facility] [place] [facility] Amitriptyli Amitriptyli Yes Reema [address] [facility] ne HCl ne HCl [place] at bedtime [facility] Zolpidem Zolpidem Yes Reema [address] Tartrate Tartrate [place] at bedtime [facility] Topamax Topamax Yes Reema [address] [facility] [place] at bedtime [facility] HydrOXYzine HydrOXYzine Yes Reema [address] [facility] HCl HCl [place] as needed [facility] Belsomra Belsomra Yes Reema [address] [place] at bedtime [facility] - as [facility] Trazodone Trazodone Yes Reema [address] [facility] HCl HCl [place] at bedtime [facility] Pantoprazol Pantoprazol Yes Reema [address] [facility] e Sodium e Sodium [place] Nadja [facility] Immunizations Ordered Immunization Filled Immunization Date Status Commen ts Source Name Name Pfizer SARS-CoV-2 2020-11-09 Completed MD [facility] Vaccination 00:00:00 Pfizer SARS-CoV-2 2020-10-19 Completed MD C[facility]as r[facility] Vaccination 00:00:00 Vital Signs Vital Name Observation Time Observation Value Comments Source Systolic blood 2020-08-03 14:46:00 137 mm[Hg] Univer [facility] pressure [facility] Diastolic blood 2020-08-03 14:46:00 82 mm[Hg] [facility] Heart rate 2020-08-03 14:46:00 90 /min [facility] Body temperature 2020-08-03 14:46:00 37.11 Sri [facility] Respiratory rate 2020-08-03 14:46:00 18 /min [facility] Body height 2020-08-03 14:46:[address] [facility] Body weight 2020-08-03 14:46:[address] [facility] BMI 2020-08-03 14:46:00 38.28 kg/m2 [facility] [place] [facility] Oxygen saturation in 2020-08-03 14:46:00 96 /min [facility] of Arterial blood by [facility] Pulse oximetry Branch Systolic blood 2019-10-20 19:00:00 142 mm[Hg] Univer sity of pressure [place] [facility] Diastolic blood 2019-10-20 19:00:00 92 mm[Hg] Unive rsity of pressure [facility] [place] [facility] Heart rate 2019-10-20 18:55:00 81 /min [facility] [place] [facility] Respiratory rate 2019-10-20 18:55:00 16 /min [facility] [place] [facility] Oxygen saturation in 2019-10-20 18:55:00 96 /min [facility] of Arterial blood by [facility] Pulse oximetry Branch Body temperature 2019-10-20 18:25:00 36.67 Sri [facility] [place] [facility] Body height 2019-10-20 15:11:00 149.9 cm [facility] [place] [facility] Body weight 2019-10-20 15:11:00 86.183 kg [facility] [place] [facility] BMI 2019-10-20 15:11:00 38.38 kg/m2 [facility] [place] [facility] Systolic blood 2019-09-26 18:25:00 150 mm[Hg] Univer sity of pressure [facility] [place] [facility] Diastolic blood 2019-09-26 18:25:00 89 mm[Hg] Unive rsity of pressure [facility] [place] [facility] Heart rate 2019-09-26 18:25:00 89 /min [facility] [place] [facility] Body temperature 2019-09-26 18:25:00 37.17 Sri [facility] [place] [facility] Respiratory rate 2019-09-26 18:25:00 18 /min [facility] [place] [facility] Body height 2019-09-26 18:25:00 152.4 cm [facility] [place] [facility] Body weight 2019-09-26 18:25:00 87.544 kg [facility] [place] [facility] BMI 2019-09-26 18:25:00 37.69 kg/m2 [facility] [place] [facility] Oxygen saturation in 2019-09-26 18:25:00 98 /min University of Arterial blood by [facility] Pulse oximetry Branch Heart rate 2019-09-15 18:10:00 114 /min [facility] [place] [facility] Oxygen saturation in 2019-09-15 18:10:00 100 /min [facility] of Arterial blood by [facility] Pulse oximetry Branch Systolic blood 2019-09-15 17:50:00 134 mm[Hg] Univer sity of pressure [facility] [place] [facility] Diastolic blood 2019-09-15 17:50:00 81 mm[Hg] Unive rsity of pressure [facility] [place] [facility] Respiratory rate 2019-09-15 17:50:00 11 /min [facility] [place] [facility] Body temperature 2019-09-15 17:00:00 36.33 Sri [facility] [place] [facility] Body height 2019-09-15 13:06:00 152.4 cm [facility] [place] [facility] Body weight 2019-09-15 13:06:00 81.647 kg [facility] [place] [facility] BMI 2019-09-15 13:06:00 35.15 kg/m2 [facility] [place] [facility] Systolic blood 2019-08-31 18:39:00 158 mm[Hg] Univer sity of pressure [facility] Diastolic blood 2019-08-31 18:39:00 100 mm[Hg] Unive rsity of pressure [facility] Heart rate 2019-08-31 18:38:00 88 /min [facility] [place] [facility] Body temperature 2019-08-31 18:38:00 37.06 Sri [facility] [place] [facility] Respiratory rate 2019-08-31 18:38:00 18 /min [facility] [place] [facility] Body height 2019-08-31 18:38:00 152.4 cm [facility] [place] [facility] Body weight 2019-08-31 18:38:00 87.771 kg [facility] [place] [facility] BMI 2019-08-31 18:38:00 37.79 kg/m2 [facility] [place] [facility] Oxygen saturation in 2019-08-31 18:38:00 97 /min [facility] Arterial blood by [facility] Pulse oximetry Branch Systolic blood 2021-03-06 13:55:50 143 mm[Hg] pressure Diastolic blood 2021-03-06 13:55:50 88 mm[Hg] MD Blossom jacome pressure Heart rate 2021-03-06 13:55:50 77 /min MD Nava son Body temperature 2021-03-06 13:55:50 36.89 Sri MD Vidal johnson Respiratory rate 2021-03-06 13:55:50 18 /min MD Vidal johnson Body weight 2021-03-06 13:55:50 97.2 kg MD [...] Smith MD on PHOSPHORUS LEVEL 2021-03-06 12:59:17 Justin Smith MD Elijah son LACTATE DEHYDROGENASE 2021-03-06 12:59:17 Justin Smith MD VITAMIN D 25 HYDROXY LEVEL 2021-03-06 12:59:17 Nancy Smith Results CBC 2021-03-06 12:59:17 Justin Smith MD on MANUAL DIFFERENTIAL 2021-03-06 12:59:17 Justin Smith MD derson GLUCOSE LEVEL 2021-03-06 12:59:17 Justin Smith MD on BLOOD UREA NITROGEN 2021-03-06 12:59:17 Justin Smith MD derson ELECTROLYTE PANEL 2021-03-06 12:59:17 Justin Smith MD Ronald rson SERUM CREATININE 2021-03-06 12:59:17 Justin Smith MD Elijah son .GLOMERULAR FILTRATION 2021-03-06 12:59:17 Justin Smith MD RATE CALCIUM LEVEL TOTAL 2021-03-06 12:59:17 Justin Smith MDson ALBUMIN LEVEL 2021-03-06 12:59:17 Justin Smith MD on ALKALINE PHOSPHATASE 2021-03-06 12:59:17 Justin Smith MD ALANINE AMINOTRANSFERASE 2021-03-06 12:59:17 Justin Smith MD [...] BLOOD UREA NITROGEN 2020-12-07 12:00:00 Justin Smith MDson ELECTROLYTE PANEL 2020-12-07 12:00:00 Justin Smith MD rson SERUM CREATININE 2020-12-07 12:00:00 Justin Smith MD Elijah son .GLOMERULAR FILTRATION 2020-12-07 12:00:00 Justin Smith MD RATE CALCIUM LEVEL TOTAL 2020-12-07 12:00:00 Justin Smith MDson ALBUMIN LEVEL 2020-12-07 12:00:00 Justin Smith MD on ALKALINE PHOSPHATASE 2020-12-07 12:00:00 Justin Smith MD ALANINE AMINOTRANSFERASE 2020-12-07 12:00:00 Justin Smith MD ASPARTATE AMINOTRANSFERASE 2020-12-07 12:00:00 Nancy Smith TOTAL PROTEIN 2020-12-07 12:00:00 Justin Smith MD Yosi on FRACTIONATED BILIRUBIN 2020-12-07 12:00:00 Justin Smith [...] MD ELECTROLYTE PANEL 2020-08-15 14:11:00 Irene Sherman MD SERUM CREATININE 2020-08-15 14:11:00 Irene Sherman MD And erson .GLOMERULAR FILTRATION 2020-08-15 14:11:00 Irene Sherman MD RATE CALCIUM LEVEL TOTAL 2020-08-15 14:11:00 Irene Sherman MD ALBUMIN LEVEL 2020-08-15 14:11:00 Irene Sherman MD Ronald rson ALKALINE PHOSPHATASE 2020-08-15 14:11:00 Irene Sherman MD ALANINE AMINOTRANSFERASE 2020-08-15 14:11:00 Irene Sherman MD ASPARTATE AMINOTRANSFERASE 2020-08-15 14:11:00 Irene Sherman MD TOTAL PROTEIN 2020-08-15 14:11:00 Irene Sherman MD rson FRACTIONATED BILIRUBIN 2020-08-15 14:11:00 Irene Sherman MD PATIENT QUESTIONNAIRE 2020-08-03 05:01:00 Doctor Unassigned, [facility] HC 2019-NCOV COVID-19 2020-05-24 21:43:00 Justin Smith MD DISCLOSURE AND CONSENT, 2020-05-23 06:01:00 Doctor Unassigned, [facility] MEDICAL AND SURGICAL [place] [facility] PROCEDURES DEXA BONE MINERAL DENSITY 2020-05-18 16:45:00 Justin Smith MD BOTH HIPS AND SPINE COMPLETE BLOOD COUNT W/ 2020-05-18 16:31:00 Justin Smith DIFFERENTIAL COMPREHENSIVE METABOLIC 2020-05-18 16:31:00 Justin Smith PANEL MAGNESIUM LEVEL 2020-05-18 16:31:00 Justin Smith MD on PHOSPHORUS LEVEL 2020-05-18 16:31:00 Justin Smither son LACTATE DEHYDROGENASE 2020-05-18 16:31:00 Justin Smith MD VITAMIN D 25 HYDROXY LEVEL 2020-05-18 16:31:00 Nancy Smith Results CBC 2020-05-18 16:31:00 Justin Smith MD on MANUAL DIFFERENTIAL 2020-05-18 16:31:00 Justin Smith MDson GLUCOSE LEVEL 2020-05-18 16:31:00 Justin Smith MD on BLOOD UREA NITROGEN 2020-05-18 16:31:00 Justin Smith MD ELECTROLYTE PANEL 2020-05-18 16:31:00 Justin Smith MD rson SERUM CREATININE 2020-05-18 16:31:00 Justin Smith MD Elijah son .GLOMERULAR FILTRATION 2020-05-18 16:31:00 Justin Smith MD RATE CALCIUM LEVEL TOTAL 2020-05-18 16:31:00 Justin Smith MD ALBUMIN LEVEL 2020-05-18 16:31:00 Justin Smith MD on ALKALINE PHOSPHATASE 2020-05-18 16:31:00 Justin Smith MD nderson ALANINE AMINOTRANSFERASE 2020-05-18 16:31:00 Jsutin Smith MD ASPARTATE AMINOTRANSFERASE 2020-05-18 16:31:00 Nancy Smith TOTAL PROTEIN 2020-05-18 16:31:00 Justin Smith MD on FRACTIONATED BILIRUBIN 2020-05-18 16:31:00 Justin Smith MD XR CHEST 1 VW 2019-10-20 18:44:27 Uli [facility] [place] TIME OR 2019-10-20 18:27:00 Meghann Blakely [facility] (NON-REPORTABLE) [facility] POCT GLUCOSE (AUTOMATED) 2019-10-20 15:08:00 Meghann Blakely U [facility] DAY SURGERY - VICTORY 2019-10-20 05:01:00 Doctor Unassigned, Uni [facility] Name Medical [place] DAY SURGERY - VICTORY 2019-10-19 05:01:00 Doctor Unassigned, Marguerite [facility] Name Medical [place] NON-UTMB ORDERS 2019-10-13 05:01:00 Doctor Chuck [facility] Name Medical [place] SCANNED LAB RESULTS 2019-10-03 05:01:00 Buddy Haji [facility] Name Medical [place] TIME OR 2019-09-15 15:52:05 Uli [facility] (NON-REPORTABLE) [facility] NM INJECTION SENTINEL NODE 2019-09-15 13:44:00 Rae Card Ma [facility] Medical Branch POCT GLUCOSE (AUTOMATED) 2019-09-15 13:04:00 [facility] CONSENT/REFUSAL FOR 2019-09-15 12:36:41 Doctor [facility]assigned, [facility] [place] [facility]AT[facility] ASSIGNMENT OF BENEFITS 2019-09-15 12:36:11 Doctor Unassigned, [facility] [place] [facility] DAY SURGERY - VICTORY 2019-09-15 05:01:00 Doctor Unassigned, Uni [facility] [place] [facility] ASSIGNMENT OF BENEFITS 2019-09-13 15:43:50 Doctor Unassigned, [facility] [place] [facility] PATIENT QUESTIONNAIRE 2019-08-31 05:01:00 Doctor Unassigned, [facility] [place] [facility] DISCLOSURE AND CONSENT, 2019-08-31 05:01:00 Doctor [facility]igned, [facility]ICAL [place] [facility] n[facility] PROCEDURES BI ULTRASOUND BREAST 2019-08-12 22:20:10 Reema [facility] COMPLETE LEFT Medical Branch ASSIGNMENT OF BENEFITS 2019-05-27 15:18:16 Doctor Unassigned, [facility] [place] [facility] CONSENT/REFUSAL FOR 2019-05-04 13:54:22 Doctor Unassigned, [facility] [place] [facility] [facility] ASSIGNMENT OF BENEFITS 2019-05-04 13:54:08 Doctor Unassigned, [facility] [place] [facility] CONSENT/REFUSAL FOR 2018-10-25 17:20:35 Doctor Unassigned, [facility] DIAGNOSIS AND TREATMENT [facility] [facility] ASSIGNMENT OF BENEFITS 2018-10-25 17:20:19 Doctor Unassigned, [facility] [place] [facility] Plan of Care Planned Activity Planned Date Details Comments Source Future Scheduled Test 2020-12-07 00:00:00 COVID-19 Vaccination (3 MD Escobar - Pfizer risk 4-dose series) [code = COVID-19 Vaccination (3 - Pfizer risk 4-dose series)] Encounters Start End Encounter Admission Attending Care Care Encounter Source Date/Time Date/Time Type Type Clinicians Facility Department ID 2021-04-[address] [facility] [id number] [facility] 14:38:38 [facility] 2021-04-17 [facility] Veliz[facility] [id number] 14:30:47 [facility] 2021-04-17 Out[facility] Veliz, [facility] [id number] 14:29:36 Ajay [id number] [facility] 2021-04-17 Outpatient Veliz, [facility] [id number] 14:27:52 Ajay [id number] [facility] 2021-04-17 [facility] [id number] 14:27:12 [id number] [facility] 2021-04-17 [facility] [id number] 13:14:53 [id number] [facility] 2021-04-17 [facility] [id number] 13:11:26 [id number] [facility] 2021-04-17 [facility] Veliz, [facility] [id number] 12:53:41 Ajay [id number] [facility] 2021-04-17 Out[facility] Veliz, [facility] 12:23:02 Ajay [id number] [facility] 2021-04-17 Out[facility] Veliz, [facility] [id number] 12:20:51 Ajay [id number] [facility] 2021-04-17 [facility] [id number] 12:18:12 [id number] [facility] 2021-04-17 [facility] Rogeender, [facility] [id number] 11:45:32 Reema [id number] [facility] 2021-04-17 Outpatient Rogeender, [facility] [id number] 11:21:05 Reema [id number] [facility] 2021-04-17 Outpatient Fallon [facility]PATR[facility] [id number] 11:08:39 Reema [id number] [facility] 2021-04-17 Outpatient Fallon [facility] [id number] 11:07:44 Reema [id number] [facility] 2021-01-18 Outpatient [facility] [id number] Univers 08:20:19 MEGHANN [facility] 2021-01-15 Outpatient SYSTEM, MDA MDA [id number] 11:13:43 PROVIDER Yosi childers 2019-09-27 Outpatient SYSTEM, MDA MDA [id number] 14:51:57 PROVIDER Yosi childers 2021-09-30 2021-09-30 Outpatient [facility] [id number] Univers 15:00:00 15:00:00 MEGHANN [id number] [facility] 2021-04-22 2021-04-22 ambulatory [facility] [id number] [facility] 2021-04-12 2021-04-12 ambulatory [facility] [id number] [facility] 2021-04-03 2021-04-03 [facility] [id number] Univers 00:00:00 00:00:00 Management [facility] [id number] ity of CANCER [id number] [facility] - [id number] [place] [address] [place] 2021-04-02 2021-04-02 ambulatory [facility]LMLC [facility] [id number] [facility] 2021-03-20 2021-03-20 Outpatient FLORENTIN DIXON MDA MDA [id number] 13:31:43 13:31:43 CELYNE Yosi childers 2021-03-20 2021-03-20 Outpatient EL MELINA DIXON MDA MDA [id number] 13:29:23 13:29:23 JUSTIN childers 2021-03-20 2021-03-20 Outpatient FLORENTIN DIXON MDA MDA [id number] 13:29:19 13:29:19 JUSTIN childers 2021-03-20 2021-03-20 Outpatient FLORENTIN DIXON MDA MDA [id number] 13:12:06 13:12:06 JUSTIN childers 2021-03-14 2021-03-14 ambulatory [facility]LMLC [facility] [id number] [facility] 2021-03-12 2021-03-12 ambulatory [facility]LMLC [facility] [id number] [facility] 2021-03-11 2021-03-11 ambulatory [facility]LMLC [facility] [id number] [facility] 2021-03-07 2021-03-07 ambulatory [facility]LMLC [facility] [id number] [facility] 2021-03-06 2021-03-06 Outpatient FLORENTIN DIXON MDA MDA [id number] 07:06:22 08:43:54 JUSTIN childers 2021-03-06 2021-03-06 Outpatient FLORENTIN DIXON MDA MDA [id number] 06:50:19 06:55:29 JUSTIN childers 2021-03-05 2021-03-05 ambulatory [facility]LMLC [facility] [id number] [facility] 2021-02-25 2021-02-25 ambulatory [facility]LMLC [facility] [id number] [facility] 2021-02-19 2021-02-19 ambulatory [facility] [id number] [facility] 2021-02-12 2021-02-12 ambulatory [facility]LMLC [facility] [id number] [facility] 2021-02-07 2021-02-07 ambulatory [facility]MLC [facility] [id number] [facility] 2021-02-04 2021-02-04 ambulatory [facility]LMLC [facility] [id number] [facility] 2021-01-24 2021-01-24 ambulatory [facility]LMLC [facility] [id number] [facility] 2021-01-15 2021-01-15 Outpatient [facility] [id number] [facility] 2020-12-27 2020-12-27 Outpatient [facility] [id number] [facility] 2020-12-26 2020-12-26 Outpatient [facility]ML[facility] [id number] [facility] 2020-12-26 2020-12-26 ambulatory [facility]LMLC [facility] [id number] [facility] 2020-12-25 2020-12-25 Outpatient [facility]LMLC [facility] [id number] [facility] 2020-12-20 2020-12-20 Outpatient [facility]LMLC [facility] [id number] [facility] 2020-12-17 2020-12-17 Outpatient [facility]LMLC [facility] [id number] [facility] 2020-12-07 2020-12-07 Outpatient FLORENTIN DIXON MDA MDA [id number] 07:04:33 09:15:23 JUSTIN childers 2020-12-07 2020-12-07 Outpatient FLORENTIN DIXON MDA MDA [id number] 06:51:59 06:55:15 JUSTIN childers 2020-12-05 2020-12-05 Outpatient Latrell SANDRA [facility] [id number] Univers 13:30:00 13:30:00 [id number] [facility] 2020-12-05 2020-12-05 Outpatient [facility] [id number] [facility] 2020-11-29 2020-11-29 Outpatient [facility] [id number] [facility]00 [facility] 2020-10-15 2020-10-15 [facility] [id number] Univers 14:30:00 23:59:00 Encounter Meghann Reid SPECIALTY [id number] ity of CARE [id number] [facility] AT [id number] [address] 2020-10-15 2020-10-15 Outpatient Latrell [facility] [id number] Univers 15:30:00 15:30:00 MEGHANN [id number] [facility] 2020-10-15 2020-10-15 Outpatient R [facility] [id number] Univers 15:30:00 15:30:00 MEGHANN [facility] 2020-10-01 2020-10-01 Outpatient R [facility] [id number] Univers 14:00:00 14:00:00 MEGHANN [id number] [facility] 2020-08-29 2020-08-29 Outpatient [facility] [id number] [facility] 2020-08-27 2020-08-27 [facility] [id number] [facility] 2020-08-22 2020-08-22 [facility] [id number] [facility] 2020-08-22 2020-08-22 Out[facility] [id number] [facility] 2020-08-22 2020-08-22 [facility] [id number] [facility] 2020-08-17 2020-08-17 [facility] [id number] [facility] 2020-08-07 2020-08-07 Telephone Sandra Charity [facility] 1.2.840.114 [id number] Univers 00:00:00 00:00:00 E Health 350.1.13.10 it y of Cancer [id number] [facility] - [id number] Med ica[address] 2020-08-03 2020-08-03 Office SandraCharity [facility] 1.2.840.114 [id number] Univers 09:25:44 09:55:44 Visit E Health [id number] it y of Cancer [id number] [facility] - [id number] Med ica[address] 2020-08-03 2020-08-03 Outpatient R CHARITY CENTENO [facility] [id number] Univers 09:45:00 09:45:00 [id number] ity [facility] 2020-08-03 2020-08-03 Outpatient CHARITY CENTENO [facility] [id number] Univers 09:45:00 09:45:00 ity [facility] 2020-08-03 2020-08-03 Orders Doctor MOHAMUD 1.2.840.114 [id number] Univers 00:00:00 00:00:00 Only Unassigned, GINI 350.1.13.10 [facility] [id number] Benjamin as [id number] [place] [address] Branch 2020-07-31 2020-07-31 [facility] [id number] [facility] 2020-07-24 2020-07-24 [facility] [id number] [facility] 2020-07-17 2020-07-17 [facility] [id number] [facility]00 [facility] 2020-07-11 2020-07-11 [facility] [id number] [facility] 2020-07-10 2020-07-10 Outpatient [facility] [id number] [facility]00 [facility] 2020-06-05 2020-06-05 Patient Tam [facility] 1.2.840.114 [id number] Univers 00:00:00 00:00:00 Outreach Januszshreya GORE 350.1.13.10 i ty of [facility] [id number] [place] [id number] [place] [address] 2020-05-23 2020-05-23 Outpatient Latrell BLAKELY [facility] [id number] Univers 15:45:00 15:45:00 [facility] [id number] [facility] 2020-05-23 2020-05-23 Outpatient Latrell BLAKELY [facility] [id number] Univers 15:45:00 15:45:00 MEGHANN [facility] 2020-05-23 2020-05-23 Orders Doctor MOHAMUD 1.2.840.114 [id number] Univers 00:00:00 00:00:00 Only Unassigned, GINI 350.1.13.10 [facility] [id number] Benjamin as [id number] [address] 2020-04-25 2020-04-25 [facility] [id number] [facility] 2020-04-04 2020-04-04 [facility] [id number] [facility] 2019-12-05 2019-12-05 [facility] [id number] 08:20:00 08:20:00 t [facility] [place] [facility] Family Medicine l Medicine Outpati ent Clinics 2019-11-29 2019-11-29 [facility] [id number] 10:26:00 10:26:00 t [employer] [place] [facility] Family Medicine l Medicine Outpati ent Clinics 2019-11-02 2019-11-02 Outpatient R [facility] [id number] Univers 15:30:00 15:30:00 MEGHANN [id number] [facility] 2019-11-02 2019-11-02 Outpatient R [facility] [id number] Univers 13:30:00 13:30:00 MEGHANN [facility] 2019-11-02 2019-11-02 Telemedici [facility] 1.2.840.114 [id number] Univers 08:57:33 09:12:33 ne Visit Meghann S Health 350.1.13.10 i ty of Cancer [id number] [facility] - [id number] Med ical MDA [address] 2019-10-20 2019-10-20 [facility] 1.2.840.114 [id number] Univers 13:28:00 23:59:00 Encounter Meghann S SPECIALTY [id number] ity of CARE 4.2.7.2.686 [facility] AT [id number] [place] charlene ROJO 807 [facility] 2019-10-20 2019-10-20 [facility] 1.2.840.114 [id number] Univers 09:46:00 14:23:00 Encounter Meghann S Health 350.1.13.10 ity of [place] 4.2.7.2.686 [place] [facility] [id number] [address] ([facility]) 2019-10-20 2019-10-20 Outpatient R [facility] [id number] Univers 08:00:00 08:00:00 ity of [facility] 2019-10-19 2019-10-19 Telephone Beamor MOHAMUD [id number] Univers 00:00:00 00:00:00 MalikGINI rodriguez 350.1.13.10 ity of [facility] 4.2.7.2.686 Benjamin as [id number] [address] 2019-10-19 2019-10-19 Orders Doctor ONEIDA 1.2.840.114 [id number] Univers 00:00:00 00:00:00 Only Unassigned, GINI 350.1.13.[address] [facility] 4.2.7.2.686 Benjamin as [id number] [address] 2019-10-18 2019-10-18 Outpatient R [facility] [id number] Univers 13:00:00 13:00:00 [id number] ity of [facility] 2019-10-18 2019-10-18 Outpatient R [facility] [id number] Univers 13:00:00 13:00:00 ity of [facility] 2019-10-18 2019-10-18 Laboratory Only, [facility] Test [facility] 1.2.840. 114 [id number] Univers 12:24:47 12:39:47 Only Meghann Blakely S SPECIALTY 350.1.13.1 0 ity of CARE 4.2.7.2.686 [facility] AT [id number] [place] charlene [address] 2019-10-17 2019-10-17 Outpatient R [facility] [id number] Univers 09:00:00 09:00:00 [id number] ity of [facility] 2019-10-14 2019-10-14 Outpatient FLORENTIN CASTILLO MDA MDA [id number] 00:00:00 00:00:00 NICOLLE childers 2019-10-13 2019-10-13 Outpatient MDA MDA [id number] MD 00:00:00 00:00:00 Yosi o alvarado 2019-10-12 2019-10-12 Outpatient EL SUMMERS DESTINY, MDA MDA [id number] MD 00:00:00 00:00:00 JUSTIN Deluca o n 2019-10-12 2019-10-12 Outpatient EL SUMMERS DESTINY, MDA MDA [id number] MD 00:00:00 00:00:00 JUSTIN childers 2019-10-12 2019-10-12 Prep For ONEIDA Bright 1.2.840.114 [id number] [facility] 00:00:00 00:00:00 Surgery Andrewaj RUBALCAVA 350.1.13.10 it y of [facility] 4.2.7.2.686 Benjamin as [phone] [facility] [address] 2019-10-10 2019-10-10 Outpatient EL SUMMERS DESTINY, MDA MDA [id number] MD 00:00:00 00:00:00 JUSTIN childers 2019-10-06 2019-10-06 Outpatient EL [facility], MDA MDA [id number] MD 00:00:00 00:00:00 NICOLLE childers 2019-10-05 2019-10-05 Outpatient EL SUMMERS DESTINY, MDA MDA [id number] 00:00:00 00:00:00 JUSTIN Deluca o n 2019-10-05 2019-10-05 Outpatient EL MDA MDA [id number] MD 00:00:00 00:00:00 Yosi o alvarado 2019-10-03 2019-10-03 Outpatient EL MDA MDA [id number] MD 00:00:00 00:00:00 Yosi o alvarado 2019-10-03 2019-10-03 Lyndon MOHAMUD 1.2.840.114 [id number] Univers 00:00:00 00:00:00 Only Unassigned, GINI 350.1.13.[address] [facility] [id number] Benjamin as [id number] [facility] [address] Branch 2019-09-29 2019-09-29 Outpatient EL CAMPOVERDE, MDA MDA [id number] MD 14:37:37 14:37:37 PARKER childers 2019-09-28 2019-09-28 Outpatient SUMMERS DESTINY, MDA MDA [id number] 08:22:18 08:22:18 JUSTIN Yosieverardo childers 2019-09-28 2019-09-28 Outpatient SUMMERS DESTINY, MDA MDA [id number] 08:22:16 08:22:16 JUSTIN Yosieverardo childers 2019-09-28 2019-09-28 Outpatient SUMMERS DESTINY, MDA MDA [id number] 08:22:15 08:22:15 JUSTIN childers 2019-09-28 2019-09-28 Outpatient SUMMERS DESTINY, MDA MDA [id number] 08:22:15 08:22:15 JUSTIN Yosieverardo childers 2019-09-28 2019-09-28 Outpatient SUMMERS DESTINY, MDA MDA [id number] 08:22:14 08:22:14 JUSTIN Yosieverardo childers 2019-09-28 2019-09-28 Outpatient SUMMERS DESTINY, MDA MDA [id number] 08:22:13 08:22:13 JUSTIN childers 2019-09-28 2019-09-28 Outpatient SUMMERS DESTINY, MDA MDA [id number] 08:22:12 08:22:12 JUSTIN childers 2019-09-28 2019-09-28 Outpatient SUMMERS DESTINY, MDA MDA [id number] 08:22:10 08:22:10 JUSTIN childers 2019-09-28 2019-09-28 Outpatient [facility] DESTINY, MDA MDA [id number] 08:22:09 08:22:09 JUSTIN childers 2019-09-26 2019-09-26 [facility] [id number] Univers 13:30:00 13:30:00 MEGHANN [facility] 2019-09-26 2019-09-26 [facility] [id number] Univers 13:30:00 13:30:00 MEGHANN [facility] 2019-09-26 2019-09-26 Office [facility] [id number] Univers 13:08:27 13:23:27 Visit [facility] [id number] it y of Cancer [id number] [facility] - [id number] Med ical MDA [id number] Branch 2019-09-15 2019-09-15 [facility] [id number] Univers 08:49:00 23:59:00 Encounter Meghann Reid SPECIALTY [id number] ity of CARE [id number] [facility] AT [id number] [place] charlene ROJO 805 [facility] 2019-09-15 2019-09-15 [facility] [id number] Univers 07:35:00 13:27:00 Encounter Meghann Reid [facility] [id number] ity of League 4.2.7.2.686 [facility] [id number] [address] ([facility]) 2019-09-15 2019-09-15 [facility] [id number] Univers 07:35:00 13:27:00 [facility]ANN [facility] 2019-09-13 2019-09-13 Laboratory Only, Adc Test [facility] 1.2.840. 114 [id number] Univers 10:45:33 11:00:33 Only Meghann Blakely [place] 350.1.13.10 ity of [place] 4.2.7.2.686 [facility] [id number] [facility] [address] 2019-09-13 2019-09-13 Outpatient [facility] [id number] Univers 10:45:00 10:45:00 [id number] ity of [facility] 2019-09-13 2019-09-13 [facility] [id number] Univers 10:45:00 10:45:00 MEGHANN cruzUSMD [facility] 2019-09-13 2019-09-13 Orders Doctor ONEIDA 1.2.840.114 [id number] Univers 00:00:00 00:00:00 Only Unassigned, GINI 350.1.13.10 ity of [place] [facility] 4.2.7.2.686 [facility] [id number] [facility] [address] 2019-09-02 2019-09-02 [facility]phone [facility] [id number] Univers 00:00:00 00:00:00 Meghann Tanner Research 350.1.13.10 it y of Cancer 4.2.7.2.686 [facility] [id number] Med [address] 2019-08-31 2019-08-31 [facility] [id number] Univers 15:15:00 15:15:00 MEGHANN ity [facility] 2019-08-31 2019-08-31 Office [facility] [id number] Univers 13:23:54 13:53:54 Visit Meghann S Tanner Research 350.1.13.10 it y of Cancer 4.2.7.2.686 [facility] [id number] Med [address] 2019-08-31 2019-08-31 Outpatient R [facility] [id number] Univers 13:30:00 13:30:00 MEGHANN [facility] 2019-08-31 2019-08-31 [facility] 1.2.840.114 [id number] Univers 00:00:00 00:00:00 Outreach [employer] Experience 350.1.13.10 ity of K Cancer 4.2.7.2.686 [facility] [id number] Med [address] 2019-08-30 2019-08-30 [facility] [id number] 16:35:00 16:35:00 [facility] Medicine Outpati ent Clinics 2019-08-30 2019-08-30 [facility] [id number] Univers 14:00:00 14:00:00 MEGHANN anthonyy [facility] 2019-08-30 2019-08-30 [facility] [id number] Univers 14:00:00 14:00:00 MEGHANN malcolm [facility] 2019-08-22 2019-08-22 Outpatient R RADIOLOGY [facility] [id number] Univers 10:09:40 23:59:00 ity [facility] 2019-08-22 2019-08-22 Outpatient [facility] [id number] Univers 10:30:00 10:30:00 ity of [facility] 2019-08-19 2019-08-19 [facility] [id number] 09:37:00 09:37:00 [facility] Medicine Outpati ent [facility] 2019-08-18 2019-08-18 Outpatient R [facility] [id number] Univers 08:30:00 08:30:00 [id number] ity of [facility] 2019-08-17 2019-08-17 [facility] [id number] 10:12:00 10:12:00 [facility] Medicine Outpati ent [facility] 2019-08-12 2019-08-12 Outpatient R RADIOLOGY [facility] [id number] Univers 15:24:39 23:59:00 ity of [facility] 2019-08-12 2019-08-12 Hospital Radiology [facility] 1.2.840.114 [id number] Univers 15:24:00 23:59:00 Encounter SPECIALTY 350.1.13.10 ity of CARE 4.2.7.2.686 [id number] [place] dical [place] [address] [place] [address] 2019-08-12 2019-08-12 Outpatient R RADIOLOGY [facility] [id number] Univers 15:30:00 15:30:00 [id number] ity of [facility] 2019-08-12 2019-08-12 Hospital Radiology [facility] 1.2.840.114 [id number] Univers 15:17:00 15:23:00 Encounter SPECIALTY 350.1.13.10 ity of C[place].2.7.2.[id number] [place] dical [place] [address] [place] [address] 2019-08-01 2019-08-01 Outpatient [facility] [id number] Univers 14:30:00 14:30:00 [id number] ity of [facility] 2019-07-21 2019-07-21 [facility] [id number] 14:48:00 14:48:00 [facility] Medicine Outpati ent Clinics 2019-07-21 2019-07-21 [facility] [id number] 10:18:00 10:18:00 [facility] Medicine Outpati ent Clinics 2019-05-27 2019-05-27 Hospital Radiology [facility] 1.2.840.114 [id number] Univers 09:15:00 23:59:00 Encounter Mio 350.1.13.10 ity of [place].7.2.686 [place] [id number] [facility] [address] 2019-05-27 2019-05-27 Outpatient R RADIOLOGY [facility] [id number] Univers 09:15:00 09:15:00 ity of [facility] 2019-05-27 2019-05-27 Outpatient R RADIOLOGY [facility] [id number] Univers 00:00:00 00:00:00 ity of [facility] 2019-05-27 2019-05-27 Orders Doctor ONEIDA 1.2.840.114 [id number] Univers 00:00:00 00:00:00 Only Unassigned, GINI 350.1.13.10 ity of [place] [facility] 4.2.7.2.686 Benjamin as [id number] [facility] [address] 2019-05-10 2019-05-10 [facility] [id number] 16:45:00 16:45:00 [facility] 2019-05-04 2019-05-04 Director Of Student Affairs [place], Karol Lab Main [facility] 1.2.8 40.114 [id number] Univers 07:53:31 08:08:31 Visit Aubree Carr 350.1.13 .10 ity of [place] 4.2.7.2.[address] [facility] [id number] [facility] [address] 2019-05-04 2019-05-04 Orders Doctor MOHAMUD 1.2.840.114 [id number] Univers 00:00:00 00:00:00 Only Unassigned, GINI 350.1.13.10 ity of [place] [facility] 4.2.7.2.686 Benjamin as [id number] [place] [address] [address] 2018-10-29 2018-10-29 [facility] [id number] 15:28:00 15:28:00 [facility] Medicine Outpati ent Clinics 2018-10-25 2018-10-25 Director Of Student Affairs 1, Adc Lab [place] 1.2.840.114 [id number] [facility] 12:22:10 12:37:10 Visit Aubree Carr 350.1.13 .10 ity [facility] 4.2.7.2.686 [facility] [id number] [facility] [address] 2018-10-25 2018-10-25 [facility] [id number] 10:00:00 10:00:00 [facility] Medicine Outpati ent Clinics 2018-10-25 2018-10-25 Orders Doctor MOHAMUD 1.2.840.114 [id number] 00:00:00 00:00:00 Only Unassigned, GINI 350.1.13.[address] [facility] 4.2.7.2.[address] [place] [address] [id number] [facility] [address] 2018-05-24 2018-05-24 [facility] [id number] 14:15:00 14:15:00 [facility] Medicine Outpati ent Clinics 2018-05-14 2018-05-14 [facility] [id number] 13:00:00 13:00:00 [facility] Medicine Outpati ent Clinics 2017-07-17 2017-07-17 [facility] [id number] 14:52:00 14:52:00 [facility] Medicine Outpati ent Clinics 2017-07-10 2017-07-10 [facility] [id number] 10:00:00 10:00:00 [facility] Medicine Outpati ent Clinics Results Test Description Test Time Test Comments Results Result Comments Source COVID-19 (HAWK-CoV-2) PCR Asymptomatic 2020-05-25 12:21:43 Test Item Value Reference Range Interpretation Comme nts COVID19 SARS Indication (test Pre-Radiation Therapy code = 09812) COVID19 SARS Result (test code = Detected Not Detected A 02250-8) COVID19 SARS Interpretation SARS-CoV-2 Detected. Reference (test code = 74485) Range: Not Detected Methodology: The Pak RealTime SARS-CoV-2 assay is a qualitative real-time reverse salesperson recreational vehicles polymerase chain reaction (amalgamator-PCR) test to detect RNA from SARS-CoV-2 in nasal, nasopharyngeal and oropharyngeal swabs from patients with signs and symptoms of infection who are suspected of COVID-19 by their health care provider. The Pak RealTime SARS-CoV-2 performed on the [employer] in [employer] Box000 System is a dual target assay with [...] CLIA-certified, high-complexity Molecular Diagnostics Laboratory (MDL) at [facility] under the Food and Drug Administration (FDA) s Emergency Use Authorization. Factsheet for patients: https://www.[facility].org/G[employer] Interactive GroupProvidence Regional [facility] tSheetPatientsFactsheet for healthcare providers: https://www.[facility].[email or web address]/AbbottFa tSheetHCP Test performed by:[facility] Molecular Diagnostic [address] [place] [address] Lab Interpretation (test code = Abnormal 50513-2) KarthausXR CHEST 1 [id number] 18:47:30FINDINGS/IMPRESSION: A right chest wall port is [...] be seen with a silhouette is not enlarged.[facility] TIME OR (NON-REPORTABLE)2019-10-20 18:27:48These images do not require a Radiology diagnostic report.[facility] POCT GLUCOSE (AUTOMATED)2019-10-20 15:10:00 Test Item Value Reference Range Interpretation Comments POCT GLU (test code = 7117152912) 106 mg/dL 70-110 Lab Interpretation (test code = Normal 92561-6) [facility] AustinNM INJECTION SENTINEL [id number] 16:30:27 Status post left breast injection for axillary sentinel node mapping.SENTINEL NODE INJECTION CLINICAL INDICATION: Left breast cancer TECHNIQUE AND FINDINGS: With aseptic technique 1 mCi of technetium 99multra filtrated sulfur colloid was injected intradermally in 4 doses aroundleft periareolar region. No images were obtained. The patient willfollow-up with intraoperative sentinel node localization. [facility], Radiant Results Inft User - 09/15/2019 11:31 AM CDTSENTINEL NODE INJECTION CLINICAL INDICATION:Left breast cancer TECHNIQUE AND FINDINGS: With aseptic technique 1 mCi of technetium 99multra filtrated sulfur colloid was injected intradermally in 4 doses aroundleft periareolar region. No images were obtained. The patient willfollow-up with intraoperative sentinel node localization.IMPRESSION Status post left breast injection for axillary sentinel node mapping.[facility] AustinFL TIME OR (NON-REPORTABLE) 2019-09-15 15:52:58These images do not require a Radiology diagnostic report. [facility] AustinPOCT GLUCOSE (AUTOMATED)2019-09-15 13:05:00 Test Item Value Reference Range Interpretation Comments POCT GLU (test code = 5140054574) 112 mg/dL 70-110 H Lab Interpretation (test code = Abnormal 19567-1) [facility] AustinBI ULTRASOUND BREAST COMPLETE [id number] 23:52:53Examination:BI ULTRASOUND BREAST COMPLETE LEFT History:Patient is [...] the patient at the conclusion of today's examination.[facility]
[2021-05-01] MEDS ORDERED: KETOROLAC 30 MG/ML INJ ONE (12:48)
[2021-05-01] MEDS ORDERED: NA CHLORIDE 0.9% 1,000 ML ONE (12:48)
[2021-05-01] MEDS ORDERED: DIPHENHYDRAMINE 50 MG/ML VIAL ONE (12:49)
[2021-05-01] MEDS ORDERED: METOCLOPRAMIDE 10 MG/2mL INJ ONE (12:50)
[2021-05-01] MEDS ORDERED: HYDROCODONE/APAP 7.5/325 MG TAB ONE (13:44)
--- NOTE | 2021-05-01 14:46 | RAD REPORT ---
EXAM DESCRIPTION: CT - Head Brain Wo Cont - 05/01/2021 2:35 pm CLINICAL HISTORY: HEADACHE COMPARISON: No comparisons TECHNIQUE: All CT scans are performed using dose optimization technique as appropriate and may inclu de automated exposure control or mA/KV adjustment according to patient size. FINDINGS: No intracranial hemorrhage, hydrocephalus or extra-axial fluid collection.No areas of brai n edema or evidence of midline shift. The paranasal sinuses and mastoids are clear. The calvarium is intact. IMPRESSION: No acute intracranial abnormality.
--- NOTE | 2021-05-01 15:11 | ER ---
Nurse's Notes [facility] Name: Sonya Duff Age: 56 yrs Sex: Female : 1965 Arrival Date: 05/01/2021 Time: 12:25 Bed 10 Private MD: Diagnosis: Migraine without aura, not intractable Presentation: 05/01 12:31 Chief complaint: Patient states: headache for a couple of weeks; states was told by PCP vg1 to take OTC medicine and states 'nothing works'. States pain starts in back of head and radiates to the front; states nausea and pressure behind eyes. Coronavirus screen: Vaccine status: Patient reports receiving the 2nd dose of the covid vaccine. Client denies travel out of the [place] in the last 14 days. Ebola Screen: Patient negative for fever greater than or equal to 101.5 degrees Fahrenheit, and additional compatible Ebola Virus Disease symptoms. Initial Sepsis Screen: Does the patient meet any 2 criteria? No. Patient's initial sepsis screen is negative. Does the patient have a suspected source of infection? No. Patient's initial sepsis screen is negative. Risk Assessment: Do you want to hurt yourself or someone else? Patient reports no desire to harm self or others. Onset of symptoms was April 17, 2021. 12:31 Method Of Arrival: Ambulatory vg1 12:31 Acuity: MICHELLE 3 vg1 Triage Assessment: 12:33 Headache History: The patient has had previous headaches and this one is more severe vg1 than previous episodes. General: Appears in no apparent distress. uncomfortable, Behavior is calm, cooperative. Pain: Complains of pain in head Pain currently is 10 out of 10 on a pain scale. Pain began x 2 weeks Also complains of nausea. Neuro: Level of Consciousness is awake, alert, obeys commands, Oriented to person, place, time, situation, Denies blurred vision headache. Historical: - Allergies: 12:33 No Known Allergies; vg1 - Home Meds: 12:33 phentermine 30 mg Oral TbDi 1 tab once daily [Active]; letrozole oral [Active]; vg1 zolpidem 10 mg Oral tab 1 tab once daily [Active]; - PMHx: 12:33 breast cancer, LEFT- invasive ductal; Diabetes - NIDDM; Gastric Reflux; High vg1 Cholesterol; Hypertension; - PSHx: 12:33 breast reduction, with implants; hysterectomy, partial; left knee repair; vg1 - Immunization history:: Client reports receiving the 2nd dose of the Covid vaccine. - Social history:: Smoking status: Patient denies any tobacco usage or history of. Screenin:57 Abuse screen: Denies threats or abuse. Denies injuries from another. Nutritional ab2 screening: No deficits noted. Tuberculosis screening: No symptoms or risk factors identified. Fall Risk None identified. Assessment: 12:56 General: Appears in no apparent distress. comfortable, Behavior is calm, cooperative, ab2 appropriate for age. Pain: Complains of pain in head Pain does not radiate. Pain currently is 9 out of 10 on a pain scale. Quality of pain is described as aching. Neuro: Level of Consciousness is awake, alert, obeys commands, Oriented to person, place, time, situation, Appropriate for age Lime Supervisor are equal bilaterally Moves all extremities. Gait is steady, Speech is normal, Reports headache in entire. Cardiovascular: No deficits noted. Denies chest pain, shortness of breath, Heart tones S1 S2 present Patient's skin is warm and dry. Respiratory: No deficits noted. Airway is patent Breath sounds are clear bilaterally. GI: No deficits noted. No signs and/or symptoms were reported involving the gastrointestinal system. Abdomen is round non-distended. : No deficits noted. No signs and/or symptoms were reported regarding the genitourinary system. EENT: No deficits noted. No signs and/or symptoms were reported regarding the EENT system. Derm: No deficits noted. No signs and/or symptoms reported regarding the dermatologic system. Musculoskeletal: No deficits noted. No signs and/or symptoms reported regarding the musculoskeletal system. 13:43 Reassessment: Patient appears in no apparent distress at this time. Pt states ab2 medications that were given did not help her headache. JAYLEN Matthew made aware, new order for medication carried through. 15:30 Reassessment: Patient states feeling better. ab2 Vital Signs: 12:31 BP 131 / 81; Pulse 99; Resp 16; Temp 97.7; Pulse Ox 100% ; Weight 83.91 kg; Height 5 vg1 ft. 1 in. (154.94 cm); Pain 10/10; 13:44 BP 126 / 83; Pulse 87; Resp 16; Pulse Ox 100% on R/A; Pain 9/10; ab2 15:30 BP 137 / 81; Pulse 83; Resp 16; Pulse Ox 98% on R/A; ab2 12:31 Body Mass Index 34.96 (83.91 kg, 154.94 cm) vg1 Jessica Coma Score: 15:16 Eye Response: spontaneous(4). Verbal Response: oriented(5). Motor Response: obeys kb commands(6). Total: 15. ED Course: 12:25 Patient arrived in ED. as 12:33 Triage completed. vg1 12:33 Arm band placed on. vg1 12:34 Oksana Gleason FNP-C is PHCP. kb 12:34 Marcos Cody MD is Attending Physician. kb 12:42 Andrew Ireland is Primary Nurse. ab2 12:57 Patient has correct armband on for positive identification. Call light in reach. Side ab2 rails up X2. 12:57 No provider procedures requiring assistance completed. Inserted saline lock: 20 gauge ab2 in right forearm, using aseptic technique. 14:34 CT Head Brain wo Cont In Process Unspecified. EDMS 15:31 IV discontinued, intact, bleeding controlled, No redness/swelling at site. Pressure ab2 dressing applied. Administered Medications: 12:49 Drug: NS 0.9% 1000 ml Route: IV; Rate: 1000 ml; Site: right forearm; ab2 13:45 Follow up: Response: No adverse reaction; IV Status: Completed infusion ab2 12:49 Drug: Reglan (metoCLOPramide) 10 mg Route: IVP; Site: right forearm; ab2 13:45 Follow up: Response: No adverse reaction ab2 12:49 Drug: Ketorolac 30 mg Route: IVP; Site: right forearm; ab2 13:45 Follow up: Response: No adverse reaction ab2 12:49 Drug: Benadryl (diphenhydrAMINE) 12.5 mg Route: IVP; Site: right forearm; ab2 13:45 Follow up: Response: No adverse reaction ab2 13:45 Drug: Laurens (HYDROcodone-acetaminophen) (7.5 mg-325 mg) 1 tabs Route: PO; ab2 Outcome: 15:10 Discharge ordered by . kb 15:30 Discharged to home ambulatory. ab2 15:30 Condition: good 15:30 Discharge instructions given to patient, Instructed on discharge instructions, follow up and referral plans. medication usage, Demonstrated understanding of instructions, follow-up care, medications, Prescriptions given X 1. 15:31 Patient left the ED. ab2 Signatures: Dispatcher [employer] EDOksana Magallon, TOBACCO SPRAYER-C TOBACCO SPRAYER-Isabel Dunham Victoria, RN RN vg1 Andrew Ireland ab2
--- NOTE | 2021-05-01 15:11 | EDPHYS ---
Physician Documentation [facility] Name: Sonya Duff Age: 56 yrs Sex: Female : 1965 Arrival Date: 05/01/2021 Time: 12:25 Bed 10 Private MD: ED Physician Marcos Cody HPI: 05/01 15:17 This 56 yrs old Female presents to ER via Ambulatory with complaints of kb Headache. 15:17 The patient complains of pain to the top of head and forehead. The patient describes kb the headache as throbbing. Onset: The symptoms/episode began/occurred 2 week(s) ago. Associated signs and symptoms: Pertinent positives: nausea, Photophobia. Severity of symptoms: At its worst the pain was moderate, in the emergency department the pain is unchanged. Headache History: The patient has had previous headaches and this one is similar to previous episodes. The symptoms are alleviated by nothing. the symptoms are aggravated by nothing. The patient has experienced similar episodes in the past. The patient has not recently seen a physician. 15:19 Pt reports intermittent migraine for 2 weeks. States she has been taking excedrine kb migraine with no relief. Has been trying to get a hold of her PCP, but on one answers the phone at the office. States she has a history of migraines that were similar. Historical: - Allergies: 12:33 No Known Allergies; vg1 - Home Meds: 12:33 phentermine 30 mg Oral TbDi 1 tab once daily [Active]; letrozole oral [Active]; vg1 zolpidem 10 mg Oral tab 1 tab once daily [Active]; - PMHx: 12:33 breast cancer, LEFT- invasive ductal; Diabetes - NIDDM; Gastric Reflux; High vg1 Cholesterol; Hypertension; - PSHx: 12:33 breast reduction, with implants; hysterectomy, partial; left knee repair; vg1 - Immunization history:: Client reports receiving the 2nd dose of the Covid vaccine. - Social history:: Smoking status: Patient denies any tobacco usage or history of. ROS: 15:20 Constitutional: Negative for fever, chills, and weight loss. kb 15:20 Abdomen/GI: Positive for nausea. 15:20 Neuro: Positive for headache. 15:20 All other systems are negative. Exam: 15:20 Constitutional: This is a well developed, well nourished patient who is awake, alert, kb and in no acute distress. Head/Face: Normocephalic, atraumatic. Eyes: Pupils equal round and reactive to light, extra-ocular motions intact. Lids and lashes normal. Conjunctiva and sclera are non-icteric and not injected. Cornea within normal limits. Periorbital areas with no swelling, redness, or edema. ENT: Moist Mucous membranes Cardiovascular: Regular rate and rhythm with a normal S1 and S2. No gallops, murmurs, or rubs. No pulse deficits. Respiratory: Respirations even and unlabored. No increased work of breathing. Talking in full sentences Skin: Warm, dry with normal turgor. Normal color. MS/ Extremity: Pulses equal, no cyanosis. Neurovascular intact. Full, normal range of motion. Neuro: Awake and alert, GCS 15, oriented to person, place, time, and situation. Moves all extremities. Normal gait. Psych: Awake, alert, with orientation to person, place and time. Behavior, mood, and affect are within normal limits. Vital Signs: 12:31 BP 131 / 81; Pulse 99; Resp 16; Temp 97.7; Pulse Ox 100% ; Weight 83.91 kg; Height 5 vg1 ft. 1 in. (154.94 cm); Pain 10/10; 13:44 BP 126 / 83; Pulse 87; Resp 16; Pulse Ox 100% on R/A; Pain 9/10; ab2 15:30 BP 137 / 81; Pulse 83; Resp 16; Pulse Ox 98% on R/A; ab2 12:31 Body Mass Index 34.96 (83.91 kg, 154.94 cm) vg1 Jessica Coma Score: 15:16 Eye Response: spontaneous(4). Verbal Response: oriented(5). Motor Response: obeys kb commands(6). Total: 15. MDM: 12:36 Patient medically screened. nani 15:16 Data reviewed: vital signs, nurses notes. Data interpreted: Pulse oximetry: on room air kb is 100 %. Interpretation: normal. Counseling: I had a detailed discussion with the patient and/or guardian regarding: the historical points, exam findings, and any diagnostic results supporting the discharge/admit diagnosis, radiology results, the need for outpatient follow up, a neurologist, to return to the emergency department if symptoms worsen or persist or if there are any questions or concerns that arise at home. 05/01 14:24 Order name: CT Head Brain wo Cont; Complete Time: 14:47 kb 05/01 12:43 Order name: IV Start; Complete Time: 12:50 kb Administered Medications: 12:49 Drug: NS 0.9% 1000 ml Route: IV; Rate: 1000 ml; Site: right forearm; ab2 13:45 Follow up: Response: No adverse reaction; IV Status: Completed infusion ab2 12:49 Drug: Reglan (metoCLOPramide) 10 mg Route: IVP; Site: right forearm; ab2 13:45 Follow up: Response: No adverse reaction ab2 12:49 Drug: Ketorolac 30 mg Route: IVP; Site: right forearm; ab2 13:45 Follow up: Response: No adverse reaction ab2 12:49 Drug: Benadryl (diphenhydrAMINE) 12.5 mg Route: IVP; Site: right forearm; ab2 13:45 Follow up: Response: No adverse reaction ab2 13:45 Drug: [place] (HYDROcodone-acetaminophen) (7.5 mg-325 mg) 1 tabs Route: PO; ab2 Disposition: 15:44 Co-signature as Attending Physician, Marcos Cody MD I agree with the assessment and nani plan of care. Disposition Summary: 05/01/21 15:10 Discharge Ordered Location: Home kb Condition: Stable kb Diagnosis - Migraine without aura, not intractable kb Followup: kb - With: Emergency Department - When: As needed - Reason: Worsening of condition Followup: kb - With: Private Physician - When: 2 - 3 days - Reason: Recheck today's complaints, Continuance of care, Re-evaluation by your physician Discharge Instructions: - Discharge Summary Sheet kb - Migraine Headache, [id number] kb Forms: - Medication Reconciliation Form kb - Thank You Letter kb - Antibiotic Education kb - Prescription Opioid Use kb Prescriptions: - Diclofenac Sodium 75 mg Oral tablet,delayed release (DR/EC) - take 1 tablet by ORAL route 2 times per day As needed; 30 tablet; Refills: 0, kb Product Selection Permitted Signatures: Dispatcher [employer] Oksana Lambert, JUSTINO SHANKAR-Marcos Williamson MD MD cha Garcia, Victoria, RN RN vg1 Bleininger, Andrew ab2
[2021-05-01 15:36] VITALS: TEMP 97.7
[2021-05-01 15:39] VITALS: BP 137/81; O2SAT 98
== END 2021-05-01 15:31 | disposition home or self-care (01) ==
LOC: ER 12:24
DX: G43.009 Migraine without aura, not intractable, without status migrainosus (principal); I10 Essential (primary) hypertension; E11.9 Type 2 diabetes mellitus without complications
CPT/HCPCS: 70450; 96361; 96374; 96375; 99284; J1200; J2765; J7030

== ENCOUNTER 2022-02-28 14:10 | Emergency (ER) | payer BC, SELFPAY ==
--- OUTSIDE RECORDS SUMMARY | 2022-02-28 14:14 | XMS REPORT | Clinical Summary ---
:1965 Author Organization [facility] MD [facility] Address [address] [place] [address] Care Team Providers Name Role Phone Justin Smith MD Primary Care Provider Meghann Daigle MD Unavailable [phone] Calixto Arroyo MD Unavailable Ajay Veliz DO Unavailable Allergies No known active allergies Medications Medication Sig Dispensed Refills Start End Date Status Date traMADol (ULTRAM) 50 Take 1 tablet 30 tablet 0 Active mg (50 mg) by 1 tabletIndications: mouth every 6 Infiltrating duct (six) hours carcinoma of upper as needed for outer quadrant of moderate left female breast pain. Linzess 290 mcg cap Take 1 0 Active capsule by 1 mouth as needed. zolpidem (AMBIEN) 10 Take 10 mg by 0 Active mg tablet mouth nightly 2 as needed. pregabalin (Lyrica) Take 1 60 capsule 0 Active 150 mg capsule (150 2 capsuleIndications: mg) by mouth Drug-induced twice daily.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 atorvastatin TAKE ONE (1) 0 Acti ve (LIPITOR) 10 mg TABLET(S) BY 2 tablet MOUTH ONCE A DAY. lisinopriL-hydrochlo TAKE ONE (1) 0 Active rothiazide TABLET(S) BY 2 (PRINZIDE,ZESTORETIC MOUTH ONCE A ) 10-12.5 mg per DAY. tablet divalproex TAKE 1 TABLET 0 Activ e (DEPAKOTE) [address] BY MOUTH 2 tablet EVERY 8 HOURS cholecalciferol, Take 1 tablet 0 Active vitamin D3, (Vitamin (5,000 Units) 2 D3) 5,000 units tab by mouth tabletIndications: daily. OTC Infiltrating duct carcinoma, 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; Left> letrozole (FEMARA) Take 1 tablet 90 tablet 3 Active 2.5 mg (2.5 mg) by 2 tabletIndications: mouth daily. Infiltrating duct carcinoma, 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; Left> levothyroxine Take 50 mcg 0 06/20/19 Disc ontinued (SYNTHROID, by mouth 5 22 (Discont inued by LEVOTHROID) 50 mcg daily. a sheldonher tablet clinician) pantoprazole Take 20 mg by 0 10/30/19 Dis continued (PROTONIX) 40 mg EC mouth daily 22 tablet with breakfast. metoprolol tartrate Take 25 mg by 0 Discontinued (LOPRESSOR) 25 mg mouth twice 0 22 (Discontinued by tablet daily. another clinician) lisinopril Take 10 mg by 0 06/20/19 Disco ntinued (PRINIVIL,ZESTRIL) mouth every 22 (Not Applicable) 10 mg tablet morning. amLODIPine (NORVASC) Take 5 mg by 0 Discontinued 5 mg tablet mouth daily. 0 22 (Disc ontinued by another clinician) atorvastatin Take 20 mg by 0 06/20/19 Dis continued (LIPITOR) 20 mg mouth. 22 (Dis continued by tablet another clinician) prochlorperazine Take 1 tablet 30 tablet 3 09/28/19 Discontinued (COMPAZINE) 10 mg (10 mg) by 0 22 tabletIndications: mouth every 6 Infiltrating duct (six) hours carcinoma of upper as needed for outer quadrant of nausea or left female breast vomiting. lidocaine-prilocaine Apply to 30 g 3 06/20/19 Discontinued (EMLA) 2.5-2.5% Port-A-Cath 0 22 creamIndications: area 30 to 45 Infiltrating duct minutes prior carcinoma of upper to port outer quadrant of access as left female breast directed (topical anesthetic). triamcinolone Apply 30 g 0 09/28/19 Discon tinued (KENALOG) ointment topically to 0 22 0.1%Indications: affected Infiltrating duct area(s) twice carcinoma of upper daily. outer quadrant of left female breast, Dermatitis, not otherwise specified pregabalin (LYRICA) TAKE 1 90 capsule 0 04/01/19 Discontinued 75 mg CAPSULE BY 1 22 capsuleIndications: MOUTH THREE Infiltrating duct TIMES DAILY carcinoma, 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; Left>, Drug-induced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 citalopram (CeleXA) Take 1 tablet 30 tablet 3 Discontinued 20 mg (20 mg) by 1 22 tabletIndications: mouth daily. Infiltrating duct carcinoma, 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; Left>, Reactive depression (situational) letrozole (FEMARA) TAKE 1 90 tablet 3 12/26/19 D iscontinued 2.5 mg TABLET(2.5 1 22 (Reorder) tabletIndications: MG) BY MOUTH Infiltrating duct DAILY carcinoma, 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; Left> ergocalciferol Take 1 12 capsule 0 05/24/19 Expi red (Vitamin D2) 50,000 capsule 1 22 units (50,000 capsuleIndications: Units) by Infiltrating duct mouth every 7 carcinoma, NOS of days for 12 upper-outer quadrant doses. Take 1 of breast <Female; capsule PO Left>, Vitamin D once a week. deficiency, not After 12 otherwise specified weeks, then take Vit D3 5000 IU (OTC) once daily pregabalin (LYRICA) TAKE 1 90 capsule 0 06/20/19 Discontinued 75 mg CAPSULE BY 2 22 (Reorder) capsuleIndications: MOUTH THREE Infiltrating duct TIMES DAILY carcinoma, 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; Left>, Drug-induced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 pregabalin (LYRICA) Take 1 90 capsule 0 09/28/19 Discontinued 75 mg capsule (75 2 22 capsuleIndications: mg) by mouth Infiltrating duct 3 (three) carcinoma, NOS of times a day. upper-outer quadrant of breast <Female; Left>, Drug-induced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 citalopram (CeleXA) TAKE 1 30 tablet 3 12/26/19 Discontinued 20 mg TABLET(20 MG) 2 22 tabletIndications: BY MOUTH Infiltrating duct DAILY carcinoma, 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; Left>, Reactive depression (situational) pregabalin (Lyrica) Take 1 60 capsule 0 10/30/19 Discontinued 150 mg capsule (150 2 22 (Reorde r) capsuleIndications: mg) by mouth Drug-induced twice daily.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 pregabalin (Lyrica) Take 1 60 capsule 0 12/03/19 Discontinued 150 mg capsule (150 2 22 (Reorde r) capsuleIndications: mg) by mouth Drug-induced twice daily.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 Cancer Staging: Pathologic: Stage IB (pT 2, pN0(sn), cM0, G3, ER+, KY+, HER2-, Oncotype DX score: 43) - Unsigned Encounters Date Type Specialty Care Team Description 12/25/2021 Office Visit Thoracic Medicine Justin Smith, Inf iltrating duct carcinoma, 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; Left>; MD Gregorio du ct carcinoma of upper outer quadrant of left female breast 12/25/2021 Travel 12/02/[address], Irene Drug-induced Opal, [employer]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 11/29/2021 Telephone Oncology Bella Elizabeth burning in stomach DOUGLAS Dunn and breast 10/29/[address], Irene Drug-induced Opal, [employer]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 10/29/2021 Telephone Oncology Bella Elizabeth insurance c iqra and DOUGLAS Dunn lyromuloa rx reque st 09/27/[address], Irene Opal, [employer] 09/27/[address], Irene Drug-induced Opal, [employer]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 (Primary Dx) 09/27/[address], Irene Drug-induced Opal, [employer]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 (Primary Dx) 09/27/2021 Telephone Oncology Bella Elizabeth Lyrica dose question Mona RN and refill requ est 09/04/2021 Telephone Oncology Bella Elizabeth left breast pain Mona RN 09/04/2021 Orders Only Oncology Irene Sherman Infiltrating duct Opal, [employer] carcinoma of up per outer quadrant of left female parminder ast (Primary Dx) 08/13/2021 Telephone Oncology Bella Elizabeth ER visit fo r blisters Mona RN 07/22/2021 Telephone Oncology Bella Elizabeth burning low er legs Mona, RN and fingers 07/05/2021 Ancillary Radiology ShermanIrene Infiltrating duct Procedure Opal, [employer] carcinoma, NOS of upper-outer stiven drant of breast <Fema le; Left> 07/05/[address], Irene Infiltrating duct Procedure Opal, [employer] carcinoma, NOS of upper-outer stiven drant of breast <Fema le; Left> 07/05/2021 Travel 07/03/2021 Refill Oncology Irene Sherman Infiltrating duct carcinoma, 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; Left>; Opal, [employer] Reactive depres ryan (situational) 07/02/2021 Orders Only Oncology Irene Sherman Drug-induced Opal, [employer]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 (Primary Dx) 07/02/2021 Telephone Oncology Bella Elizabeth neurology eleanor Dunn RN request 06/27/2021 Telephone Thoracic Medicine Justin Smith MD 06/26/2021 Ancillary Radiology Irene Sherman Infiltrating duct Procedure Opal, [employer] carcinoma, NOS of upper-outer stiven drant of breast <Fema le; Left> 06/26/2021 Travel 06/19/2021 Office Visit Thoracic Medicine Justin Smith, Inf iltrating duct carcinoma, 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; Left>; Drug-induced po lyneuropathy 06/19/2021 Orders Only Radiology Dennis Delgado PA 06/19/2021 Travel 05/06/2021 Telephone Oncology Bella Elizabeth headaches a sai Dunn RN stopping citalo pram 04/01/[address] Irene Infiltra ting duct carcinoma, 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; Left>; Opal, [employer] Drug-induced po lyneuropathy 03/20/2021 Ancillary Radiology Justin Smith Cancer Procedure 03/20/2021 Ancillary Radiology Justin Smith, Cancer Procedure 03/20/2021 Ancillary Radiology Justin Smith, Cancer Procedure 03/20/2021 Ancillary Radiology Justin Smith Cancer Procedure 03/06/2021 Office Visit Thoracic Medicine Justin Smith, Inf iltrating duct carcinoma, 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; Left>; Reactive pedro davis (situational); Vitamin D defic iency, not otherwise specified 03/06/2021 Travel after 02/28/2021 Immunizations Name Administration Dates Next Due Pfizer SARS-CoV-2 Vaccination (Purple Cap) 11/09/2020, 09/22 Surgical History Surgery Date Site/Laterality Comments COLONOSCOPY [...] 1 Alive Brother 2 (Age 54) Liver cirrhosi s Daughter 1 Alive no cancer Daughter 2 Alive no cancer Father Alive Grandchild Alive Maternal Aunt 1 (Age 70s) Covid Maternal Aunt 2 Alive 2 living aunts, no cancer Maternal Cousin Alive multiple nieces/ nephews no cancer history Maternal Grandfather (Age 90s) Maternal Grandmother (Age 90s) Maternal Uncle 1 (Age 70s) 2 unclesno c ancer Maternal Uncle 2 (Age 70s) Maternal Uncle 3 Alive no cancer Mother Keila Maxi Alive Benign breast biopsyhysterecto my at 27 Niece/Nephew Alive No nieces/nephew s with cancer history Paternal Aunt Alive 4 aunts no cance r Paternal Grandfather Paternal Grandmother Paternal Uncle Alive 3 uncles no canc er Sister Alive Son Alive Social History Tobacco Use Types Packs/Day Years Used Date Smoking Tobacco: Never Smokeless Tobacco: Never Alcohol Use Standard Drinks/Week Comments Never 0 (1 standard drink = 0.6 oz pure alcoho l) Sex Assigned at Date Recorded Not on file Job Start Date Occupation Industry Not on file Not on file Not on file Obstetrics History Last Filed Vital Signs Vital Sign Reading Time Taken Comments Blood Pressure 108/65 12/25/2021 8:14 AM CDT Pulse 79 12/25/2021 8:14 AM CDT Temperature 36.8 C (98.2 F) 12/25/2021 8:14 AM CDT Respiratory Rate 20 12/25/2021 8:14 AM CDT Oxygen Saturation 99% 12/25/2021 8:14 AM CDT Inhaled Oxygen Concentration - - Weight 96.7 kg (213 lb 3 oz) 12/25/2021 8:14 AM CDT Height 147.3 cm (4' 9.99") 06/26/2021 12:20 PM CDT Body Mass Index 44.57 06/26/2021 12:20 PM CDT Plan of Treatment Date Type Specialty Care Team Description 06/25/2022 Lab Lab Danielle Smith MD [address] [place], [place] [address] (Wo rk) 06/25/2022 Ancillary Procedure Radiology Justin Smith MD [address] [place] [address] (Wo rk) 06/25/2022 Ancillary Procedure Radiology Justin Smith MD [address] [place] [address] (Wo rk) 06/25/2022 Ancillary Procedure Radiology Justin Smith MD [address] [place] [address] (Wo rk) 06/25/2022 Follow-Up Thoracic Medicine Deborah Smith MD [address] [facility] [place] [address] (Wo rk) Health Maintenance Due Date Last Done Comments COVID-19 Vaccination (3 - Pfizer risk 12/07/2020 11/09/2020 , 10/19/2020 series) Procedures Procedure Name Priority Date/Time Associated Comments Diagnosis FRACTIONATED BILIRUBIN Routine 12/25/2021 7:[address] Results for this AM CDT carcinoma, NOS of procedure are in upper-outer the results quadrant of breast section. <Female; Left> TOTAL PROTEIN Routine 12/25/2021 7:13 Infiltrating duct Result s for this AM CDT carcinoma, NOS of procedure are in upper-outer the results quadrant of breast section. <Female; Left> ASPARTATE Routine 12/25/2021 7:13 Infiltrating duct Results for this AMINOTRANSFERASE AM CDT carcinoma, NOS of proced ure are in upper-outer the results quadrant of breast section. <Female; Left> ALANINE AMINOTRANSFERASE Routine 12/25/2021 7:13 Infiltrating duct Results for this AM CDT carcinoma, NOS of procedure are in upper-outer the results quadrant of breast section. <Female; Left> ALKALINE PHOSPHATASE Routine 12/25/2021 7:13 Infiltrating duct Results for this AM CDT carcinoma, NOS of procedure are in upper-outer the results quadrant of breast section. <Female; Left> ALBUMIN LEVEL Routine 12/25/2021 7:13 Infiltrating duct Result s for this AM CDT carcinoma, NOS of procedure are in upper-outer the results quadrant of breast section. <Female; Left> CALCIUM LEVEL TOTAL Routine 12/25/2021 7:13 Infiltrating duct Results for this AM CDT carcinoma, NOS of procedure are in upper-outer the results quadrant of breast section. <Female; Left> .GLOMERULAR FILTRATION Routine 12/25/2021 7:[address] Results for this RATE AM CDT carcinoma, NOS of procedure are in upper-outer the results quadrant of breast section. <Female; Left> SERUM CREATININE Routine 12/25/2021 7:13 Infiltrating duct Res ults for this AM CDT carcinoma, NOS of procedure are in upper-outer the results quadrant of breast section. <Female; Left> ELECTROLYTE PANEL Routine 12/25/2021 7:13 Infiltrating duct Re sults for this AM CDT carcinoma, NOS of procedure are in upper-outer the results quadrant of breast section. <Female; Left> BLOOD UREA NITROGEN Routine 12/25/2021 7:13 Infiltrating duct Results for this AM CDT carcinoma, NOS of procedure are in upper-outer the results quadrant of breast section. <Female; Left> GLUCOSE LEVEL Routine 12/25/2021 7:13 Infiltrating duct Result s for this AM CDT carcinoma, NOS of procedure are in upper-outer the results quadrant of breast section. <Female; Left> MANUAL DIFFERENTIAL Routine 12/25/2021 7:13 Infiltrating duct Results for this AM CDT carcinoma, NOS of procedure are in upper-outer the results quadrant of breast section. <Female; Left> Results CBC Routine 12/25/2021 7:13 Infiltrating duct Results for this AM CDT carcinoma, NOS of procedure are in upper-outer the results quadrant of breast section. <Female; Left> VITAMIN D 25 HYDROXY Routine 12/25/2021 7:13 Infiltrating duct Results for this LEVEL AM CDT carcinoma, NOS of procedure are in upper-outer the results quadrant of breast section. <Female; Left> URIC ACID Routine 12/25/2021 7:13 Infiltrating duct Results for this AM CDT carcinoma, NOS of procedure are in upper-outer the results quadrant of breast section. <Female; Left> PHOSPHORUS LEVEL Routine 12/25/2021 7:13 Infiltrating duct Res ults for this AM CDT carcinoma, NOS of procedure are in upper-outer the results quadrant of breast section. <Female; Left> MAGNESIUM LEVEL Routine 12/25/2021 7:13 Infiltrating duct Resu lts for this AM CDT carcinoma, NOS of procedure are in upper-outer the results quadrant of breast section. <Female; Left> LACTATE DEHYDROGENASE Routine 12/25/2021 7:13 Infiltrating ramakrishna t Results for this AM CDT carcinoma, NOS of procedure are in upper-outer the results quadrant of breast section. <Female; Left> COMPREHENSIVE METABOLIC Routine 12/25/2021 7:13 [address] d uct PANEL AM CDT carcinoma, 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; Left> COMPLETE BLOOD COUNT W/ Routine 12/25/2021 7:13 Infiltrating d uct DIFFERENTIAL AM CDT carcinoma, 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; Left> US CHEST/INFRACLAV Routine 07/05/2021 2:44 Infiltrating duct R esults for this PM CDT carcinoma, NOS of procedure are in upper-outer the results quadrant of breast section. <Female; Left> US BREAST COMPLETE Routine 07/05/2021 2:44 Infiltrating duct R esults for this BILATERAL PM CDT carcinoma, NOS of procedure are in upper-outer the results quadrant of breast section. <Female; Left> MAMMO DIGITAL DIAGNOSTIC Routine 07/05/2021 2:12 Infiltrating duct Results for this BILATERAL W PARTH PM CDT carcinoma, NOS of proced ure are in upper-outer the results quadrant of breast section. <Female; Left> MRI BRAIN W WO CONTRAST Routine 06/26/2021 1:14 Infiltrating d uct Results for this PM CDT carcinoma, NOS of procedure are in upper-outer the results quadrant of breast section. <Female; Left> FRACTIONATED BILIRUBIN Routine 06/19/2021 10:59 Infiltrating d uct Results for this AM CDT carcinoma, NOS of procedure are in upper-outer the results quadrant of breast section. <Female; Left> TOTAL PROTEIN Routine 06/19/2021 10:59 Infiltrating duct Resul ts for this AM CDT carcinoma, NOS of procedure are in upper-outer the results quadrant of breast section. <Female; Left> ASPARTATE Routine 06/19/2021 10:59 Infiltrating duct Result s for this AMINOTRANSFERASE AM CDT carcinoma, NOS of proced ure are in upper-outer the results quadrant of breast section. <Female; Left> ALANINE AMINOTRANSFERASE Routine 06/19/2021 10:59 Infiltrating duct Results for this AM CDT carcinoma, NOS of procedure are in upper-outer the results quadrant of breast section. <Female; Left> ALKALINE PHOSPHATASE Routine 06/19/2021 10:59 Infiltrating ramakrishna t Results for this AM CDT carcinoma, NOS of procedure are in upper-outer the results quadrant of breast section. <Female; Left> ALBUMIN LEVEL Routine 06/19/2021 10:59 Infiltrating duct Resul ts for this AM CDT carcinoma, NOS of procedure are in upper-outer the results quadrant of breast section. <Female; Left> CALCIUM LEVEL TOTAL Routine 06/19/2021 10:59 Infiltrating duct Results for this AM CDT carcinoma, NOS of procedure are in upper-outer the results quadrant of breast section. <Female; Left> .GLOMERULAR FILTRATION Routine 06/19/2021 10:59 In[address] d uct Results for this RATE AM CDT carcinoma, NOS of procedure are in upper-outer the results quadrant of breast section. <Female; Left> SERUM CREATININE Routine 06/19/2021 10:59 Infiltrating duct Re sults for this AM CDT carcinoma, NOS of procedure are in upper-outer the results quadrant of breast section. <Female; Left> ELECTROLYTE PANEL Routine 06/19/2021 10:59 Infiltrating duct R esults for this AM CDT carcinoma, NOS of procedure are in upper-outer the results quadrant of breast section. <Female; Left> BLOOD UREA NITROGEN Routine 06/19/2021 10:59 Infiltrating duct Results for this AM CDT carcinoma, NOS of procedure are in upper-outer the results quadrant of breast section. <Female; Left> GLUCOSE LEVEL Routine 06/19/2021 10:59 Infiltrating duct Resul ts for this AM CDT carcinoma, NOS of procedure are in upper-outer the results quadrant of breast section. <Female; Left> MANUAL DIFFERENTIAL Routine 06/19/2021 10:59 Infiltrating duct Results for this AM CDT carcinoma, NOS of procedure are in upper-outer the results quadrant of breast section. <Female; Left> Results CBC Routine 06/19/2021 10:59 Infiltrating duct Result s for this AM CDT carcinoma, NOS of procedure are in upper-outer the results quadrant of breast section. <Female; Left> VITAMIN D 25 HYDROXY Routine 06/19/2021 10:59 Infiltrating ramakrishna t Results for this LEVEL AM CDT carcinoma, NOS of procedure are in upper-outer the results quadrant of breast section. <Female; Left> LACTATE DEHYDROGENASE Routine 06/19/2021 10:[address] Results for this AM CDT carcinoma, NOS of procedure are in upper-outer the results quadrant of breast section. <Female; Left> PHOSPHORUS LEVEL Routine 06/19/2021 10:59 Infiltrating duct Re sults for this AM CDT carcinoma, NOS of procedure are in upper-outer the results quadrant of breast section. <Female; Left> MAGNESIUM LEVEL Routine 06/19/2021 10:59 Infiltrating duct Res ults for this AM CDT carcinoma, NOS of procedure are in upper-outer the results quadrant of breast section. <Female; Left> COMPREHENSIVE METABOLIC Routine 06/19/2021 10:59 Infiltrating duct PANEL AM CDT carcinoma, 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; Left> COMPLETE BLOOD COUNT W/ Routine 06/19/2021 10:59 Infil[address]ating duct DIFFERENTIAL AM CDT carcinoma, 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; Left> FRACTIONATED BILIRUBIN Routine 03/06/2021 6:[address] Results for this AM COORDINATOR OF [employer]LINE PROGRAMS carcinoma, NOS of procedure are in upper-outer the results quadrant of breast section. <Female; Left> Reactive depression (situational) Vitamin D deficiency, not otherwise specified TOTAL PROTEIN Routine 03/06/2021 6:59 Infil[address]ating duct Result s for this AM COORDINATOR [employer]GR[employer] carcinoma, NOS of procedure are in upper-outer the results quadrant of breast section. <Female; Left> Reactive depression (situational) Vitamin D deficiency, not otherwise specified ASPARTATE Routine 03/06/2021 6:59 Infiltrating duct Results for this AMINOTRANSFERASE AM COORDINATOR [employer]GRAMS carcinoma, NOS of proced ure are in upper-outer the results quadrant of breast section. <Female; Left> Reactive depression (situational) Vitamin D deficiency, not otherwise specified ALANINE AMINOTRANSFERASE Routine 03/06/2021 6:59 Infiltrating duct Results for this AM COORDINATOR [employer]GRAMS carcinoma, NOS of procedure are in upper-outer the results quadrant of breast section. <Female; Left> Reactive depression (situational) Vitamin D deficiency, not otherwise specified ALKALINE PHOSPHATASE Routine 03/06/2021 6:59 Infiltrating duct Results for this AM COORDINATOR [employer] carcinoma, NOS of procedure are in upper-outer the results quadrant of breast section. <Female; Left> Reactive depression (situational) Vitamin D deficiency, not otherwise specified ALBUMIN LEVEL Routine 03/06/2021 6:59 Infiltrating duct Result s for this AM COORDINATOR [employer] carcinoma, NOS of procedure are in upper-outer the results quadrant of breast section. <Female; Left> Reactive depression (situational) Vitamin D deficiency, not otherwise specified CALCIUM LEVEL TOTAL Routine 03/06/2021 6:59 Infiltrating duct Results for this AM CO[employer]IN[employer] carcinoma, NOS of procedure are in upper-outer the results quadrant of breast section. <Female; Left> Reactive depression (situational) Vitamin D deficiency, not otherwise specified .GLOMERULAR FILTRATION Routine 03/06/2021 6:[address] Results for this RATE AM COORDINATOR [employer] carcinoma, NOS of procedure are in upper-outer the results quadrant of breast section. <Female; Left> Reactive depression (situational) Vitamin D deficiency, not otherwise specified SERUM CREATININE Routine 03/06/2021 6:59 Infiltrating duct Res ults for this AM COORDIN[employer] carcinoma, NOS of procedure are in upper-outer the results quadrant of breast section. <Female; Left> Reactive depression (situational) Vitamin D deficiency, not otherwise specified ELECTROLYTE PANEL Routine 03/06/2021 6:59 Infiltrating duct Re sults for this AM CO[employer]IN[employer] carcinoma, NOS of procedure are in upper-outer the results quadrant of breast section. <Female; Left> Reactive depression (situational) Vitamin D deficiency, not otherwise specified BLOOD UREA NITROGEN Routine 03/06/2021 6:59 Infiltrating duct Results for this AM CO[employer]INATOR [employer] carcinoma, NOS of procedure are in upper-outer the results quadrant of breast section. <Female; Left> Reactive depression (situational) Vitamin D deficiency, not otherwise specified GLUCOSE LEVEL Routine 03/06/2021 6:59 Infiltrating duct Result s for this AM CO[employer]IN[employer] carcinoma, NOS of procedure are in upper-outer the results quadrant of breast section. <Female; Left> Reactive depression (situational) Vitamin D deficiency, not otherwise specified MANUAL DIFFERENTIAL Routine 03/06/2021 6:59 Infiltrating duct Results for this AM CO[employer]IN[employer] carcinoma, NOS of procedure are in upper-outer the results quadrant of breast section. <Female; Left> Reactive depression (situational) Vitamin D deficiency, not otherwise specified Results CBC Routine 03/06/2021 6:59 Infiltrating duct Results for this AM [employer]IN[employer] carcinoma, NOS of procedure are in upper-outer the results quadrant of breast section. <Female; Left> Reactive depression (situational) Vitamin D deficiency, not otherwise specified VITAMIN D 25 HYDROXY Routine 03/06/2021 6:59 Infiltrating duct Results for this LEVEL AM COORDINATOR OF ONLINE PROGRAMS carcinoma, NOS of procedure are in upper-outer the results quadrant of breast section. <Female; Left> Reactive depression (situational) Vitamin D deficiency, not otherwise specified LACTATE DEHYDROGENASE Routine 03/06/2021 6:59 Infiltrating ramakrishna t Results for this AM COORDINATOR OF ONLINE PROGRAMS carcinoma, NOS of procedure are in upper-outer the results quadrant of breast section. <Female; Left> Reactive depression (situational) Vitamin D deficiency, not otherwise specified PHOSPHORUS LEVEL Routine 03/06/2021 6:59 Infiltrating duct Res ults for this AM COORDINATOR OF ONLINE PROGRAMS carcinoma, NOS of procedure are in upper-outer the results quadrant of breast section. <Female; Left> Reactive depression (situational) Vitamin D deficiency, not otherwise specified MAGNESIUM LEVEL Routine 03/06/2021 6:59 [address] duct Resu lts for this AM COORDINATOR OF ONLINE PROGRAMS carcinoma, NOS of procedure are in upper-outer the results quadrant of breast section. <Female; Left> Reactive depression (situational) Vitamin D deficiency, not otherwise specified COMPREHENSIVE METABOLIC Routine 03/06/2021 6:59 Infiltrating d uct PANEL AM COORDINATOR OF ONLINE PROGRAMS carcinoma, 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; Left> Reactive depression (situational) Vitamin D deficiency, not otherwise specified COMPLETE BLOOD COUNT W/ Routine 03/06/2021 6:59 Infiltrating d uct DIFFERENTIAL AM COORDINATOR OF ONLINE PROGRAMS carcinoma, 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; Left> Reactive depression (situational) Vitamin D deficiency, not otherwise specified after 02/28/2021 Results .Serum Creatinine (12/25/2021 7:13 AM CDT)Only the most recent of3 resultswithin the time period is included. athologist Signature Creatinine 0.76 0.51 - 0.95 [place] mg/dL Comment: Testing performed at [facility], [address] [place] [address] Specimen Anatomical Collection Method Collection Time Receive d Time (Source) Location / / Volume Laterality Blood 12/25/2021 7:13 AM 7:14 CDT AM CDT Irene Sherman MACHINE [employer] LAB BLOOD ORDERABLES Performing Organization Address City/State/ZIP Code Phon e Number [address] .CBC (12/25/2021 7:13 AM CDT)Only the most recent of3 resultswithin the time period is included. athologist Signature WBC 6.5 4.0 - 11.0 [place] K/uL Comment: All components of the CBC perfo rmed at [facility], [address] [place] [address] 3 RBC 4.46 4.00 - 5.50 M/uL [place] Comment: All components of the CBC perfo rmed at [facility], [address] [place] [address] 3 Hgb 13.7 12.0 - 16.0 gm/dL [place] Comment: As part of CBC or as an individ ual orderable testing performed at [facility], [address] [place] [address] Hct 39.3 37.0 - 47.0 % [place] Comment: As part of CBC testing performe d at [facility], [address] [place] [address] 19[address] MCV 88 82 - 98 fL [place] Comment: As part of CBC testing performe d at [facility], [address] [place] [address], [place] [address] MCH 30.7 27.0 - 31.0 pg [place] Comment: As part of CBC testing performe d at [facility], [address] [place] [address] MCHC 34.9 31.0 - 36.0 gm/dL [place] Comment: As part of CBC testing performe d at [facility], [address] [place] [address] RDW-SD 39.4 35.1 - 46.3 fL [place] Comment: As part of CBC testing performe d at [facility], [address] [place] [address] 25236 RDW-CV 12.2 12.0 - 15.5 % [place] Comment: As part of CBC testing performe d at [facility], [address] [place] [address] 11212 Platelet count 285 140 - 440 K/uL [facility] JENNIE EDMUNDSON Comment: As part of CBC or an individual orderable testing performed at [facility], [address] [place] [address] 47127 MPV 9.3 4.0 - 10.4 fL [place] Comment: As part of CBC testing performe d at [facility], [address] [place] [address] Specimen Anatomical Collection Method Collection Time Receive d Time (Source) Location / / Volume Laterality Blood 12/25/2021 7:13 AM 7:14 CDT AM CDT Irene Sherman MACHINE [employer] WORK[employer] LAB BLOOD ORDERABLES Performing Organization Address City/State/ZIP Code Phon e Number [place], [place] [phone] [place] [address] Glomerular Filtration Rate (12/25/2021 7:13 AM CDT)Only the most recent of3 resultswithin the time period is included. athologist Signature eGFR-AA 103 >=60 [place] mL/min/1.73 sq. m Comment: Normal eGFR >= 60 mL/min/1.73 m2 Note: The eGFR is calculated using the C KD-EPI equation. The eGFR declines with age. eGFR <60 mL/min/1.73 m2 is considered as "decreased". This equation should only be used for patients 18 and older. According to the National Kid[employer] ion's Kidney Disease Outcome Quality Initiative (KDOQI) classification and 2012 Kidney Disease Improving Global Outcomes (KDIGO) Clinical Practice Guideline, the stage of CKD should be categorized based on estimated GFR. Stage Description GFR mL/min/1. 73 m2 1 Normal or high GFR >=90 2 Mildly decreased GFR 60-89 3a Mildly to moderately decreased GFR 45-59 3b Moderately to severely decreased GFR 30-44 4 Severely decreased GFR 15-29 5 Kidney failure <15 Testing performed at [facility], [address] [place] [address] eGFR-BRANDEN 89 >=60 mL/min/1.73 sq. m [place] Comment: Normal eGFR >= 60 mL/min/1.73 m2 Note: The eGFR is calculated using the C KD-EPI equation. The eGFR declines with age. eGFR <60 mL/min/1.73 m2 is considered as "decreased". This equation should only be used for patients 18 and older. According to the National [employer] ion's Kidney Disease Outcome Quality Initiative (KDOQI) classification and 2012 Kidney Disease Improving Global Outcomes (KDIGO) Clinical Practice Guideline, the stage of CKD should be categorized based on estimated GFR. Stage Description GFR mL/min/1. 73 m2 1 Normal or high GFR >=90 2 Mildly decreased GFR 60-89 3a Mildly to moderately decreased GFR 45-59 3b Moderately to severely decreased GFR 30-44 4 Severely decreased GFR 15-29 5 Kidney failure <15 Testing performed at [facility], [address] [place] [address] Specimen Anatomical Collection Method Collection Time Receive d Time (Source) Location / / Volume Laterality Blood 12/25/2021 7:13 AM 7:14 CDT AM CDT Irene Opal [facility] BLOOD ORDERABLES Performing Organization Address City/State/ZIP Code Phon e Number [place], [place] [id number] [place] [address] Fractionated Bilirubin (12/25/2021 7:13 AM CDT)Only the most recent of3 results within the time period is included. athologist Signature Bili Total 0.5 <=1.2 mg/dL [place] Comment: Indocyanine Green (ICG) may cause falsel y elevated bilirubin results. Total and direct bilirubin must not be measured from samples containing indocyanine green. False elevation of total bilirubin can b e seen in patients with IgG concentrations above 28 g/L. Testing performed at [facility], [address] [address] Bili Direct <0.2 <=0.3 mg/dL [place] Comment: Indocyanine Green (ICG) may cause falsel y elevated bilirubin results. Total and direct bilirubin must not be measured from samples containing indocyanine green. Testing performed at [facility], [address] [place] [address] Bili Indirect See Note 0.0 - 0.9 mg/dL [facility] Comment: Unable to calculate Indirect Bilirubin r esult due to some parameters are outside reportable range Testing performed at [facility], [address] [place] [address] Specimen Anatomical Collection Method Collection Time Receive d Time (Source) Location / / Volume Laterality Blood 12/25/2021 7:13 AM 7:14 CDT AM CDT Irene Opal [facility] LAB BLOOD ORDERABLES Performing Organization Address City/State/ZIP Code Phon e Number [facility], [place] [phone] [place] [address] (ABNORMAL) Vitamin D 25OH (12/25/2021 7:13 AM CDT)Only the most recent of3 resultswithin the time period is included. P athologist Signature Vitamin D 25 OH 22 (L) 30 - 100 [place] ng/mL Comment: Reference Range: Deficiency: <10 ng/mL Insufficiency: 10-29 ng/mL Sufficiency: 30-100 ng/mL Potential toxicity: >100 ng/mL Testing performed at [facility], [address] [place] [address] Specimen Anatomical Collection Method Collection Time Receive d Time (Source) Location / / Volume Laterality Blood 12/25/2021 7:13 AM 7:14 CDT AM CDT Irene Sherman MACHINE [employer] WORK[employer] LAB BLOOD ORDERABLES Performing Organization Address City/State/ZIP Code Phon e Number [place], [place] [id number] [place] [address] (ABNORMAL) Differential (12/25/2021 7:13 AM CDT)Only the most recent of3 results within the time period is included. athologist Signature Neutrophil % 54.2 42.0 - 66.0 [place] % Comment: All components of the Different ial performed at [facility], [address] [place] [address] Lymphocyte % 30.1 24.0 - 44.0 % [place] Comment: As part of the Differential trey ting performed at [facility], [address] [place] [address] 11542 Monocyte % 12.1 (H) 2.0 - 7.0 % [place] Comment: As part of the Differential trey ting performed at [facility], [address] [place] [address] Eosinophil % 2.6 1.0 - 4.0 % [place] Comment: As part of the Differential trey ting performed at [facility], [address] [place] [address] Basophil % 0.5 0.0 - 1.0 % [place] Comment: As part of the Differential trey ting performed at [facility], [address] [place] [address] IGRE % 0.5 (H) 0.0 - 0.4 % [place] Comment: IGRE % count includes Metamyelocytes, My elocytes, and Promyelocytes. As part of the Differential testing perf ormed at [facility], [address] [place] [address]35 Neutrophil Abs 3.54 1.70 - 7.30 K/uL SHILOH ITY Comment: As part of the Differential trey ting performed at [facility], [address] [place] [address], [place] [address] Lymphocyte Abs 1.96 1.00 - 4.80 K/uL SHILOH C ITY Comment: As part of the Differential trey ting performed at [facility], [address] [place] [address] Monocyte Abs 0.79 (H) 0.08 - 0.70 K/uL [facility] Comment: As part of the Differential trey ting performed at [facility], [address] [place] [address] Eosinophil Abs 0.17 0.04 - 0.40 K/uL SHILOH ITY Comment: As part of the Differential trey ting performed at [facility], [address] [place] [address] Basophil Abs 0.03 0.00 - 0.10 K/uL [facility] Comment: As part of the Differential trey ting performed at [facility], [address] [place] [address] IG Abs 0.03 0.00 - 0.04 K/uL [place] Comment: As part of the Differential trey ting performed at [facility], [address] [place] [address] Specimen Anatomical Collection Method Collection Time Receive d Time (Source) Location / / Volume Laterality Blood 12/25/2021 7:13 AM 7:14 CDT AM CDT Irene [facility] LAB BLOOD ORDERABLES Performing Organization Address City/State/ZIP Code Phon e Number [address] (ABNORMAL) Uric Acid (12/25/2021 7:13 AM CDT) athologist Signature Uric Acid 6.3 (H) 2.4 - 5.7 [place] mg/dL Comment: Testing performed at [facility], [address] [place] [address] Specimen Anatomical Collection Method Collection Time Receive d Time (Source) Location / / Volume Laterality Blood 12/25/2021 7:13 AM 7:14 CDT AM CDT Irene Opalute Sherman MACHINE [employer] WORK[employer] LAB BLOOD ORDERABLES Performing Organization Address City/[facility]/ZIP Code Phon e Number [place], [place] [phone] [place] [address] BUN (12/25/2021 7:13 AM CDT)Only the most recent of3 resultswithin the time period is included. athologist Signature BUN 14 6 - 23 mg/dL [place] Comment: Testing performed at [facility], [address] [place] [address] Specimen Anatomical Collection Method Collection Time Receive d Time (Source) Location / / Volume Laterality Blood 12/25/2021 7:13 AM 7:14 CDT AM CDT Irene Opal Sherman MACHINE [employer] WORK[employer] LAB BLOOD ORDERABLES Performing Organization Address City/[facility]/ZIP Code Phon e Number [place], [place] [phone] [place] [address] (ABNORMAL) ALT (12/25/2021 7:13 AM CDT)Only the most recent of3 resultswithin the time period is included. athologist Signature ALT 40 (H) <=33 U/L [place] Comment: Testing performed at [facility], [address] [place] [address] Specimen Anatomical Collection Method Collection Time Receive d Time (Source) Location / / Volume Laterality Blood 12/25/2021 7:13 AM 2 7:14 CDT AM CDT Irene Opal Sherman MACHINE [employer] WORK[employer] LAB BLOOD ORDERABLES Performing Organization Address City/[facility]/ZIP Code Phon e Number [address] (ABNORMAL) Aspartate Aminotransferase (12/25/2021 7:13 AM CDT)Only the most recent of3 resultswithin the time period is included. P athologist Signature AST 37 (H) <=32 U/L [place] Comment: Testing performed at [facility], [address] [place] [address] Specimen Anatomical Collection Method Collection Time Receive d Time (Source) Location / / Volume Laterality Blood 12/25/2021 7:13 AM 7:14 CDT AM CDT Irene Sherman MACHINE [employer] WORK[employer] LAB BLOOD ORDERABLES Performing Organization Address City/State/ZIP Code Phon e Number [address] Total Protein (12/25/2021 7:13 AM CDT)Only the most recent of3 resultswithin the time period is included. athologist Signature Total Protein 7.1 6.4 - 8.3 [place] g/dL Comment: Testing performed at [facility], [address] [place] [address] Specimen Anatomical Collection Method Collection Time Receive d Time (Source) Location / / Volume Laterality Blood 12/25/2021 7:13 AM 7:14 CDT AM CDT Irene Sherman MACHINE SH[employer] WORKER LAB BLOOD ORDERABLES Performing Organization Address City/State/[facility] Phon e Number [address] (ABNORMAL) Phosphorus Level (12/25/2021 7:13 AM CDT)Only the most recent of3 resultswithin the time period is included. P athologist Signature Phosphorus 4.8 (H) 2.5 - 4.5 [place] mg/dL Comment: Testing performed at [facility], [address] [place] [address] Specimen Anatomical Collection Method Collection Time Receive d Time (Source) Location / / Volume Laterality Blood 12/25/2021 7:13 AM 7:14 CDT AM CDT Irene [facility] LAB BLOOD ORDERABLES Performing Organization Address City/[facility]/ZIP Code Phon e Number [address] (ABNORMAL) Alkaline Phosphatase (12/25/2021 7:13 AM CDT)Only the most recent of3 resultswithin the time period is included. athologist Signature Alk Phos 117 (H) 35 - 104 [place] U/L Comment: Testing performed at [facility], [address] [place] [address] Specimen Anatomical Collection Method Collection Time Receive d Time (Source) Location / / Volume Laterality Blood 12/25/2021 7:13 AM 7:14 CDT AM CDT Irene Sherman [facility] LAB BLOOD ORDERABLES Performing Organization Address City/[facility]/ZIP Code Phon e Number [address] Magnesium Level (12/25/2021 7:13 AM CDT)Only the most recent of3 resultswithin the time period is included. athologist [facility] Magnesium 2.1 1.6 - 2.6 [place] mg/dL Comment: Testing performed at [facility], [address] [place] [address] Specimen Anatomical Collection Method Collection Time Receive d Time (Source) Location / / Volume Laterality Blood 12/25/2021 7:13 AM 7:14 CDT AM CDT Irene Sherman [facility] LAB BLOOD ORDERABLES Performing Organization Address City/[facility]/ZIP Code Phon e Number [address] (ABNORMAL) LDH (12/25/2021 7:13 AM CDT)Only the most recent of3 resultswithin the time period is included. athologist Signature LDH 292 (H) 135 - 214 [place] U/L Comment: Results greater than 1651 U/L may not be reliable due to matrix effect with extended dilution as it exceeds the theater manager's recommended limit. Caution should be exercised when interpreting such values and done in conjunction with clinical context. Testing performed at [facility], [address] [place] [address] Specimen Anatomical Collection Method Collection Time Receive d Time (Source) Location / / Volume Laterality Blood 12/25/2021 7:13 AM 7:14 CDT AM CDT Irene Opal [facility] LAB BLOOD ORDERABLES Performing Organization Address City/[facility]/ZIP Code Phon e Number [place], [place] [phone] [place] [address] (ABNORMAL) Glucose Level (12/25/2021 7:13 AM CDT)Only the most recent of3 resultswithin the time period is included. athologist Signature Glucose Level 111 (H) 70 - 99 [place] mg/dL Comment: Effective 10/17/15, the glucose reference intervals have been updated based on [place] [employer] guidelines (Standards of Medical Care in Diabetes 2016. Diabetes Care 2016; 39: S13-S22). Fasting blood glucose: Normal: 70-99 mg/dL Impaired fasting glucose (increased risk for diabetes or pre-diabetes): 100- 125 mg/dL Diabetes mellitus: >/=126 mg/dL Random blood glucose: Normal: 70-199 mg/dL Note: Random glucose >100 mg/dL is assoc iated with increased risk for diabetes Testing performed at [facility], [address] [address] Specimen Anatomical Collection Method Collection Time Receive d Time (Source) Location / / Volume Laterality Blood 12/25/2021 7:13 AM 7:14 CDT AM CDT Irene Opal Sherman [facility] LAB BLOOD ORDERABLES Performing Organization Address City/[facility] Phon e Number [place], [place] [phone] [place] [address] Calcium Level (12/25/2021 7:13 AM CDT)Only the most recent of3 resultswithin the time period is included. athologist Signature Calcium Lvl 9.5 8.4 - 10.2 [place] mg/dL Comment: Testing performed at [facility], [address] [place] [address] Specimen Anatomical Collection Method Collection Time Receive d Time (Source) Location / / Volume Laterality Blood 12/25/2021 7:13 AM 7:14 CDT AM CDT Irene Sherman [facility] LAB BLOOD ORDERABLES Performing Organization Address City/[facility] Phon e Number [place], [place] [phone] [place] [address] Albumin Level (12/25/2021 7:13 AM CDT)Only the most recent of3 resultswithin the time period is included. athologist Signature Albumin Lvl 4.4 3.5 - 5.2 [place] gm/dL Comment: Testing performed at [facility], [address] [place] [address] Specimen Anatomical Collection Method Collection Time Receive d Time (Source) Location / / Volume Laterality Blood 12/25/2021 7:13 AM 7:14 CDT AM CDT Irenechino Joseph Sherman [facility] LAB BLOOD ORDERABLES Performing Organization Address City/[facility] Phon e Number [place], [place] [phone] [place] [address] Electrolyte Panel (12/25/2021 7:13 AM CDT)Only the most recent of3 resultswithin the time period is included. athologist Signature Sodium Lvl 141 136 - 145 [place] mEq/L Comment: Testing performed at [facility], [address] [place] [address] Potassium Lvl 4.3 3.5 - 5.1 mEq/L [facility] Comment: Testing performed at [facility], [address] [place] [address] 25788 Chloride 100 98 - 107 mEq/L [place] Comment: Testing performed at [facility], [address] [place] [address] 70171 CO2 29 22 - 29 mEq/L [place] Comment: Testing performed at [facility], [address] [place] [address] 6[address]15 Anion Gap 12 4 - 14 mEq/L [place] Comment: Testing performed at [facility], [address] [place] [address], [place] [address] Specimen Anatomical Collection Method Collection Time Receive d Time (Source) Location / / Volume Laterality Blood 12/25/2021 7:13 AM 7:14 CDT AM CDT Irene Joseph Lane MACHINE [employer] WORK[employer] LAB BLOOD ORDERABLES Performing Organization Address City/State/ZIP Code Phon e Number [place], [place] [id number] [place] [address] US Chest/Infraclav for Breast Ultrasound (Add-on Only) (07/05/2021 2:44 PM CDT) Anatomical Region Laterality Modality Chest Ultrasound Specimen (Source) Anatomical Collection Method Collection Time Re ceived Time Location / / Volume Laterality 07/05/2021 2:50 PM CDT Impressions 07/05/2021 2:50 PM CDT There is no evidence of malignancy. Follow-up mammogram in 1 year is recomme nded. BI-RADS Category 2: Benign Finding(s) These results and recommendations were p ersonally discussed with the patient at the time of her visit to our facility. Narrative 07/05/2021 2:50 PM CDT CLINICAL INDICATION: Patient is a 56 year old female and is s een for history of breast cancer FILMS COMPARED The present examination has been compare d to prior imaging studies performed at an outside location on 07/24/2017, 05/26 and 08/22/2019, and at [facility] on 07/05/2021 . Images were obtained in multiple scannin g planes. Real-time sonographic imaging of both br easts (including all 4 quadrants and retroareolar region) was performed. Re al-time sonographic imaging of the left regional enrique basins including ultrasou nd of the chest/mediastinum to evaluate the axillary (level I,II,III) and administration intern al mammary regions was performed. There are bilateral pre-pectoral silicon e gel implants. There is a post surgical scar in the lef t breast outer hemisphere at 3 o'clock located 6 centimeters from the nipple. There is no sonographic evidence of tumor recurrence. There is no evidence of any solid mass o r other abnormality in the right breast. Left Regional Enrique Basins: No suspic ious axillary levels I, II, III (infraclavicular) or internal mammary ly mph node is identified. Procedure Note Angel Pastor MD - 07/05/2021 CLINICAL INDICATION: Patient is a 56 year old female and is s een for history of breast cancer FILMS COMPARED The present examination has been compare d to prior imaging studies performed at an outside location on 07/24/2017, 05/26 and 08/22/2019, and at [facility] on 07/05/2021 . Images were obtained in multiple scannin g planes. Real-time sonographic imaging of both br easts (including all 4 quadrants and retroareolar region) was performed. Real -time sonographic imaging of the left regional enrique basins including ultrasou nd of the chest/mediastinum to evaluate the axillary (level I,II,III) and administration intern al mammary regions was performed. There are bilateral pre-pectoral silicon e gel implants. There is a post surgical scar in the lef t breast outer hemisphere at 3 o'clock located 6 centimeters from the nipple. T here is no sonographic evidence of tumor recurrence. There is no evidence of any solid mass o r other abnormality in the right breast. Left Regional Enrique Basins: No suspiciou s axillary levels I, II, III (infraclavicular) or internal mammary ly mph node is identified. IMPRESSION: There is no evidence of malignancy. Follow-up mammogram in 1 year is recomme nded. BI-RADS Category 2: Benign Finding(s) These results and recommendations were p ersonally discussed with the patient at the time of her visit to our facility. Irene SHANKAR IMG US ORDERABLES US Breast Bilateral incl Enrique Basins (07/05/2021 2:44 PM CDT) Anatomical Region Laterality Modality Breast Bilateral Ultrasound Specimen (Source) Anatomical Collection Method Collection Time Re ceived Time Location / / Volume Laterality 07/05/2021 2:50 PM CDT Impressions 07/05/2021 2:50 PM CDT There is no evidence of malignancy. Follow-up mammogram in 1 year is recomme nded. BI-RADS Category 2: Benign Finding(s) These results and recommendations were p ersonally discussed with the patient at the time of her visit to our facility. Narrative 07/05/2021 2:50 PM CDT CLINICAL INDICATION: Patient is a 56 year old female and is s een for history of breast cancer FILMS COMPARED The present examination has been compare d to prior imaging studies performed at an outside location on 07/24/2017, 05/26 and 08/22/2019, and at [facility] on 07/05/2021 . Images were obtained in multiple scannin g planes. Real-time sonographic imaging of both br easts (including all 4 quadrants and retroareolar region) was performed. Re al-time sonographic imaging of the left regional enrique basins including ultrasou nd of the chest/mediastinum to evaluate the axillary (level I,II,III) and administration intern al mammary regions was performed. There are bilateral pre-pectoral silicon e gel implants. There is a post surgical scar in the lef t breast outer hemisphere at 3 o'clock located 6 centimeters from the nipple. There is no sonographic evidence of tumor recurrence. There is no evidence of any solid mass o r other abnormality in the right breast. Left Regional Enrique Basins: No suspic ious axillary levels I, II, III (infraclavicular) or internal mammary ly mph node is identified. Procedure Note Angel Pastor MD - 07/05/2021 CLINICAL INDICATION: Patient is a 56 year old female and is s een for history of breast cancer FILMS COMPARED The present examination has been compare d to prior imaging studies performed at an outside location on 07/24/2017, 05/26 and 08/22/2019, and at [facility] on 07/05/2021 . Images were obtained in multiple scannin g planes. Real-time sonographic imaging of both br easts (including all 4 quadrants and retroareolar region) was performed. Real -time sonographic imaging of the left regional enrique basins including ultrasou nd of the chest/mediastinum to evaluate the axillary (level I,II,III) and administration intern al mammary regions was performed. There are bilateral pre-pectoral silicon e gel implants. There is a post surgical scar in the lef t breast outer hemisphere at 3 o'clock located 6 centimeters from the nipple. T here is no sonographic evidence of tumor recurrence. There is no evidence of any solid mass o r other abnormality in the right breast. Left Regional Enrique Basins: No suspiciou s axillary levels I, II, III (infraclavicular) or internal mammary ly mph node is identified. IMPRESSION: There is no evidence of malignancy. Follow-up mammogram in 1 year is recomme nded. BI-RADS Category 2: Benign Finding(s) These results and recommendations were p ersonally discussed with the patient at the time of her visit to our facility. Irene CREWSP IMG US ORDERABLES Mammography Digital Diagnostic Bilateral with Parth (07/05/2021 2:12 PM CDT) Anatomical Region Laterality Modality Breast Bilateral Mammography Specimen (Source) Anatomical Collection Method Collection Time Re ceived Time Location / / Volume Laterality 07/05/2021 2:56 PM CDT Impressions 07/05/2021 2:56 PM CDT There is no mammographic evidence of malignancy. Follow-up mammogram in 1 year is recomme nded. BI-RADS Category 2: Benign Finding(s) Narrative 07/05/2021 2:56 PM CDT CLINICAL INDICATION: Patient is a 56 year old female and is s een for history of breast cancer MAMMO DIGITAL DIAGNOSTIC BILATERAL W EZEQUIEL O COMPARISON: The present examination has been compare d to prior imaging studies performed at an outside location on 05/18/2015, 05/29, 07/24/2017, 05/27/2019 and 08/22/2019. FINDINGS: The breasts are heterogeneously dense, w hich may obscure small masses. There are bilateral pre-pectoral silicon e gel implants. 1: There is a post surgical scar with associated surgical clips in the left breast outer hemisphere at 2 to 3 o'cloc k. 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 There is no mammographic evidence of tumor recurrence. 2: There are benign appearing calcific ations with scattered distribution in both breasts. Tomosynthesis performed in CC and MLO pr ojections. Procedure Note Angel Pastor MD - 07/05/2021 CLINICAL INDICATION: Patient is a 56 year old female and is s een for history of breast cancer MAMMO DIGITAL DIAGNOSTIC BILATERAL W EZEQUIEL O COMPARISON: The present examination has been compare d to prior imaging studies performed at an outside location on 05/18/2015, 05/29, 07/24/2017, 05/27/2019 and 08/22/2019. FINDINGS: The breasts are heterogeneously dense, w hich may obscure small masses. There are bilateral pre-pectoral silicon e gel implants. 1: There is a post surgical scar with as sociated surgical clips in the left breast outer hemisphere at 2 to 3 o'cloc k. 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 There is no mammographic evidence of tumor recurrence. 2: There are benign appearing calcificat ions with scattered distribution in both breasts. Tomosynthesis performed in CC and MLO pr ojections. IMPRESSION: There is no mammographic evidence of mal ignancy. Follow-up mammogram in 1 year is recomme nded. BI-RADS Category 2: Benign Finding(s) Irene Sherman [employer] IMG MAMMOGRAPHY ORDERABLES MRI Brain with and without Contrast (06/26/2021 1:14 PM CDT) Anatomical Region Laterality Modality Head Magnetic Resonance Specimen (Source) Anatomical Collection Method Collection Time Re ceived Time Location / / Volume Laterality 06/27/2021 11:21 AM CDT Impressions 06/27/2021 11:38 AM CDT There are no findings to suggest intracranial malignancy or metastasis. No visualized extracranial lesions. Narrative 06/27/2021 11:38 AM CDT FULL RESULT: Examination: MRI BRAIN W WO CONTRAST on 06/26/2021 1:14 PM Clinical History: Infiltrating duct carc inoma, 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; Left> Indication: New onset headache and visio n changes. Comparison: None Technique: Multiplanar pre and post cont rast T1 and T2 weighted sequences were obtained through the brain. Findings: There are no suspicious intracranial f oci of enhancement or abnormal signal to suggest malignancy or metastasis. Symmetric increase signal on the 3-D T1 sequences is seen along the bilateral cistern al cranial nerve VII and VIII regions an d is likely related to motion artifact. There is no signal abnormality here on the fast in echo T1 sequence. A 5 mm susceptibility focus is centered in the right thalamic capsular junction (series 14, image 16) and is likely a incidental cavernoma versus sequela from prior infection and/or hypertensive microhemorrhage. A few scattered T2/FLAIR hyperintense fo ci are compatible with sequela from chronic small vessel changes. No acute infarct, acute hemorrhage, inte rval ventricular enlargement, or concerning extra-axial fluid collection. No visualized extracranial lesions, Procedure Note Jaylon Ramsey MD - 06/27/2021Formattin g of this note might be different from the original. FULL RESULT: Examination: MRI BRAIN W WO CONTRAST on 06/26/2021 1:14 PM Clinical History: Infiltrating duct carc inoma, 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; Left> Indication: New onset headache and visio n changes. Comparison: None Technique: Multiplanar pre and post cont rast T1 and T2 weighted sequences were obtained through the brain. Findings: There are no suspicious intracranial foc i of enhancement or abnormal signal to suggest malignancy or metastasis. Symmetric increase signal on the 3-D T1 sequences is seen along the bilateral cisternal cranial nerve VII and VIII regions and is likely relat ed to motion artifact. There is no signal abnormality here on the fast in echo T1 sequence. A 5 mm susceptibility focus is centered in the right thalamic capsular junction (series 14, image 16) and is likely a incidental cavernoma versus sequela from prior infection and/or hypertensive microhemorrhage. A few scattered T2/FLAIR hyperintense fo ci are compatible with sequela from chronic small vessel changes. No acute infarct, acute hemorrhage, inte rval ventricular enlargement, or concerning extra-axial fluid collection. No visualized extracranial lesions, IMPRESSION: There are no findings to suggest intracr anial malignancy or metastasis. No visualized extracranial lesions. Irene Sherman [employer] IMG MRI ORDERABLES after 02/28/2021 Care Teams Rn Intake Relationship Specialty Start Date End Date Justin Smith MD PCP - General Medical Oncology 09/27/19 [address] [place] [address] Meghann Daigle PCP - External Referring Surgical Oncology 09/27/19 MD Saba Calixto Arroyo, PCP - External Follow Up 05/18/20 MD [address] [place], [place] [id number] Ajay Veliz, PCP - External Primary Family Practice 2 Care Provider [address] [place] [address] [address] [place], [place] [id number]
--- OUTSIDE RECORDS SUMMARY | 2022-02-28 14:27 | XMS REPORT | Continuity of Care Document ---
:1965 Author Organization [facility] t Address [address] [place] [address] Care Team Providers Name Role Phone [phone] Primary Care Physician Unavailable Ajay Veliz Attending Clinician Unavailable Reema Lehman Attending Clinician Unavailable MEGHANN BLAKELY Attending Clinician Unavailable SYSTEM, PROVIDER NOT IN Attending Clinician Unavailable LUIS AN Attending Clinician Unavailable LUIS AN Attending Clinician Unavailable Luis An MD Attending Clinician AGUSTIN BOWMAN Attending Clinician Unavailable Agustin Bowman MD Attending Clinician [phone] Bernabe Starkey MD Attending Clinician Wali Miles CRNA Attending Clinician [phone] Chris Rodgers MD Attending Clinician VERONIKA LUCERO Attending Clinician Unavailable IDANIA RAMOS Attending Clinician Unavailable Veronika Lucero MD Attending Clinician AMPARO OROPEZA Attending Clinician Unavailable Tech, [facility] Attending Clinician Unavailable Doctor Unassigned, [place] Attending Clinician Unavailable Po, [facility] Main Attending Clinician Unavailable Abdon Arias MD Attending Clinician ABDON ARIAS Attending Clinician Unavailable CHARITY FLORES Attending Clinician Unavailable Charity Flores MD Attending Clinician Melina Heredia MD, Justin Attending Clinician JUSTIN SMITH Attending Clinician Unavailable IRENE SHERMAN Attending Clinician Unavailable CHRIS RODGERS Attending Clinician Unavailable CHRIS RODGERS Attending Clinician Unavailable Irene Malagon Attending Clinician Glenn COLE, Bella Dunn Attending Clinician Unavailable Ana SINGER Attending Clinician Unavailable Ana Rutherford Attending Clinician SURENDRA CHICAS Attending Clinician Unavailable Surendra Chicas MD Attending Clinician Meghann Blakely MD Attending Clinician Dennis Sherman Attending Clinician [place] Attending Clinician Janusz Turcios DO Attending Clinician Callie Hale RN Attending Clinician Unavailable Only, [facility] Attending Clinician Unavailable NICOLLE DIMAS Attending Clinician Unavailable Andrew Bright MD Attending Clinician PARKER CAMPOVERDE Attending Clinician Unavailable Only, [facility] Attending Clinician Unavailable Hubert Knight LMSW Attending Clinician Unavailable RADIOLOGY Attending Clinician Unavailable Radiology Attending Clinician Unavailable Aubree Carr MD Attending Clinician 1, [facility] Attending Clinician Unavailable Drake Schultz Attending Clinician MEGHANN BLAKELY Admitting Clinician Unavailable AGUSTIN BOWMAN Admitting Clinician Unavailable Ana SINGER Admitting Clinician Unavailable SURENDRA CHICAS Admitting Clinician Unavailable Meghann Blakely MD Admitting Clinician REEMA LEHMAN Admitting Clinician Unavailable Payers Payer Name Policy Type Policy Number Effective Date Expiration Date S peter [employer] OF [place] [id number] 2014 00:00:00 Blue Cross Blue 6 [id number] Common [facility] BCBS PPO POS EPO [id number] 2021 [place] 00[place]00:00 [place] [id number] 2021 [place]ALTHCARE [place] 00:00:00 [place] [id number] 2021 HEALTHCARE PPO 00:00:00 Blue Cross Blue 6 [id number] 2017 [facility] 00:00:00 [facility] [place] PPO POS [id number] 2020 00:00:00 Problems Condition Condition Condition Status Onset Resolution Last Treating Co mments Source Name Details Category Date Date Treatment Clinician Date 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 [place] 00 outer outer Anderso quadrant quadrant n of left of left Cancer female female Center breast breast E66.9 - E66.9 - Diagnosis Active 2016-10-03 Memoria "OBESITY, "OBESITY, 09-29 09:13:00 l UNSPECIFIE UNSPECIFIE 00:01: He erinn D" Z71.3 - D" Z71.3 - 00 D D Active 09/29/2016 OPID [place] Type 2 Type 2 Disease Active 2014-03 [facility] diabetes diabetes 1-11 ity of mellitus mellitus 00:00: [place] without without 00 Medical complicati complicati Br anch on on Essential Essential Disease Active 2014-03 Uni vers hypertensi hypertensi 1-11 it y of on on 00:00: [place] 00 Medical Branch Abnormal Abnormal Disease Active Unive rs weight weight 3-17 ity of gain gain 00:00: [place] 00 Medical Branch Headache Headache Disease Active Overview: Un [place] 3-17 Formattin ity of 00:00: g of this [place] 00 note Medical might be Branch different from the original. ICD10 Diagnosis Term Physician Specialist Utility Fatigue Fatigue Disease Active 06-06 ity of 00:00: [place] 00 Medical Branch 788.33 788.33 Diagnosis Active 2012-032013-01-05 Me moria Active 0-04 07:50:00 l 12/24/2012 00:00: Raheem childers [address] Diabetes Diabetes Problem Active 2021-08-13 Memoria mellitus mellitus 00:41:52 l (disorder) (disorder) He rmann Active Problem 08/13/2021 Medical Group,[facility] her Neuro Hyperchole Hyperchol Problem Active 2021-08-13 Memoria sterolemia esterolemi 00:41:52 l (disorder) a Raheem childers (disorder) Active Problem 08/13/2021 Medical [facility] her Neuro,[facility], OPID [place] Low back Low back Problem Active 2021-08-13 Memoria pain pain 00:41:52 l (disorder) (disorder) He rmann Active Problem 08/13/2021 Medical [facility] her Neuro Malignant Malignant Problem Active 2021-08-13 Memoria tumor of tumor of 00:41:52 l breast breast [place] (disorder) (disorder) Active Problem 08/13/2021 [facility] her Neuro Morbid Morbid Problem Active 2021-08-13 Stu dipak obesity obesity 00:41:52 l (disorder) (disorder) He rmann Active Problem 08/13/2021 [facility] her Neuro Peripheral Periphera Problem Active 2021-08-13 Memoria nerve l nerve 00:41:52 l disease disease [place] (disorder) (disorder) Active Problem 08/13/2021 [facility] her Neuro Urinary Urinary Problem Active 2021-08-13 Me moria incontinen incontinen 00:41:52 l ce ce [place] (finding) (finding) Active Problem 08/13/2021 [facility] her Neuro,[facility] OPID [place] [id number] Type II Problem Common diabetes Spirit mellitus, - CHI well [facility] Hypertensi Hypertensi Problem C ommon on on, Spirit unspecifie - CHI d type [facility] Anxiety Anxiety Problem Common Spirit - CHI [facility] Edema Edema Problem Common Spirit - [facility] Hyperlipid Hyperlipid Problem C ommon emia emia, [facility] unspecifie - CHI d hyperlipid [facility] emia [facility] [id number] Uncontroll Problem Co mmon ed type 2 Spirit diabetes - [facility] mellitus with [facility] hyperglyce Medica l [facility] [id number] Vitamin D Problem Comm on deficiency [facility] [id number] Decreased Problem Com mon hearing of Spirit both ears - [facility] Disorder Thyroid Problem Common of thyroid condition Spi rit gland [facility] [id number] Port-a-cat Problem Co mmon h in place [facility] Migraine Migraine Problem Commo n without Spirit status - [facility] migrainosu [facility], [facility] intractabl Medica l e, Center unspecifie d migraine type Irritable IBS Problem Common bowel (irritable Spirit syndrome bowel - CHI syndrome) [facility] [id number] Obesity Problem Commo n (BMI Spirit 35.0-39.[address] [facility] without [facility] y) [facility] [id number] Nausea and Problem Com mon vomiting, Spirit intractabi - CHI lity of [facility] not Medical specified, Center unspecifie d vomiting type [id number] Mixed Problem Common hyperlipid [facility] emia [facility] [id number] Hypothyroi Problem Com mon dism, [facility] unspecifie - CHI d [facility] [id number] Abdominal Problem Comm on pain, Spirit unspecifie - CHI d abdominal [facility] [id number] Depression Problem Com mon , Spirit unspecifie - CHI d depression [facility] [id number] S/P Problem Commo n 9100 lumpectomy [facility] , left - [facility] breast [facility] Abnormal Abnormal Problem Commo n mammogram mammogram Spir it [facility] [id number] Malignant Problem Com mon neoplasm Spirit of left [facility] un[facility]ie Medica l d estrogen Center receptor status, unspecifie d site of breast [id number] Acute Problem Common left-sided Spirit back pain, - CHI unspecifie St back [facility] [id number] Gastroesop Problem Co mmon hageal Spirit reflux - CHI disease, esophagiti [facility] s presence Medica l not Center specified [id number] Dietary Problem Commo n surveillan Spirit ce and - CHI counseling [facility] [id number] Primary Problem Comm on osteoarthr Spirit itis of - CHI left knee [facility] [id number] Coughing Problem Commo n Spirit - CHI [facility] [id number] Upper Problem Common respirator Spirit y tract - [facility] [id number] Nausea Problem Common without Spirit vomiting - CHI [facility] [id number] Dizziness Problem Com mon Spirit - CHI [facility] [id number] Irritable Problem Com mon bowel Spirit syndrome - CHI with [facility] [id number] Insomnia, Problem Com mon unspecifie Spirit d type - CHI [facility] [id number] Arthritis Problem Co mmon [id number] of right Spirit knee - CHI [facility] [id number] Primary Problem Comm on osteoarthr Spirit itis of - CHI right knee [facility] [id number] Arthritis Problem Co mmon [id number] of both Spirit knees - CHI [facility] [id number] 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 [id number] Body mass Problem Com mon index Spirit [BMI] - CHI 40.0-44.9, [facility] Allergies, Adverse Reactions, Alerts Allergy Allergy Status Severity Reaction(s) Onset Inactive Treating Comm ents Source Name Type Date Date Clinician NO KNOWN Allergy Active SLSL ALLERGIE S NO KNOWN Drug Active Univers ALLERGIE Class ity of S [facility] Family History Family Member Diagnosis Comments Start Date Stop Date Source Natural brother [facility] [place] [facility] [place] Natural daughter Universi ty [facility] [place] Natural father [facility] [place] Grandchild [facility] MD [facility] [place] [facility]aternal aunt [facility] MD [facility] [place] Maternal cousin Universit y [facility] MD [facility] [place] Maternal grandfather Univ [facility] MD [facility] [place] Maternal grandmother [facility] MD [facility] [place] Maternal uncle [facility] MD [facility] r Center Natural mother [facility] Escobar Cance r [place] Niece/nephew Ava o f [facility] Cance r [place] Paternal aunt [facility] [place] Paternal grandfather Univ [facility] Escobar [facility] [place] Paternal [facility] C[facility] [place] Paternal uncle [facility] Cance r [place] Natural sister [facility] Cance r [place] Natural son Lymphoma [facility] Cance r [place] Social History Social Habit Start Date Stop Date Quantity Comments Source History of Tobacco Common Spirit - Use [facility] History SDOH [facility] Alcohol Std Drinks Medica l Center History SDOH [facility] Alcohol Binge Medical Grace ter History SDOH [facility] Alcohol Comment Medical C enter Alcohol intake 2022-02-17 2022-02-[address] [facility] 00:00:00 00:00:00 non-drinker Medical Cente r (finding) Exposure to 2022-01-31 2022-02-[address] [facility] [facility] SARS-CoV-2 (event) 00:00:00 13:58:00 Medica l Center History SDOH 2022-02-10 2022-02-[address] [facility] Alcohol Frequency 00:00:00 00:00:00 Medical Center Tobacco use and 2022-01-13 2022-01-[address] [facility] exposure 00:00:00 00:00:00 Medical Center Social History 2020-06-06 2020-06-06 [facility] 20:59:27 20:59:27 Sex Assigned At [address] [facility] 00:00:00 00:00:00 Medical Center Smoking Status Start Date Stop Date Source Never smoker [facility] Medications Ordered Filled Start Stop Current Ordering Indication Dosage Frequency Signature Comments Components Source Medication Medication Date Date Medication? Clinician (SIG) Name Name Reshma Justice 10 2021-03 No QD Ambien 10 MG MG 2-01 MG 00:00: 00 Ambien 10 Ambien 10 2021-03 No QD Ambien 10 MG MG 2-01 MG 00:00: 00 Ambien 10 Ambien 10 2021-03 No QD Ambien 10 MG MG 2-01 MG 00:00: 00 lisinopriL 2021-03 Yes 10mg Take [address] (PRINIVIL,Z 04-19 by mouth. [facility] es ESTRIL) 10 10:53: Medical MG tablet 11 Center pantoprazol 2021-03 Yes [address] e 04-19 [facility] (PROTONIX) 10:53: Medical 40 MG 11 Center tablet pregabalin 2021-03 Yes [id number] 225mg Take 3 Univers (LYRICA) 75 1-04 capsules ity of mg capsule 00:00: by mouth Benjamin as 00 in the Medical morning Branch and 3 capsules in the evening. pregabalin 2021-03 Yes [id number] 225mg Take 3 Univers (LYRICA) 75 1-04 capsules ity of mg capsule 00:00: by mouth Benjamin as 00 in the Medical morning Branch and 3 capsules in the evening. pregabalin 2021-03 Yes [id number] 225mg Take 3 Univers (LYRICA) 75 1-04 capsules ity of mg capsule 00:00: by mouth Benjamin as 00 in the Medical morning Branch and 3 capsules in the evening. pregabalin 2021-03 Yes [id number] 225mg Take 3 Univers (LYRICA) 75 1-04 capsules ity of mg capsule 00:00: by mouth Benjamin as 00 in the Medical morning Branch and 3 capsules in the evening. pregabalin 2021-03 Yes [id number] 225mg Take 3 Univers (LYRICA) 75 1-04 capsules ity of mg capsule 00:00: by mouth Benjamin as 00 in the Medical morning Branch and 3 capsules in the evening. pregabalin 2021-03 Yes [id number] 225mg Take 3 Univers (LYRICA) 75 1-04 capsules ity of mg capsule 00:00: by mouth Benjamin as 00 in the Medical morning Branch and 3 capsules in the evening. pregabalin 2021-03 Yes [id number] 225mg Take 3 Univers (LYRICA) 75 1-04 capsules ity of mg capsule 00:00: by mouth Benjamin as 00 in the Medical morning Branch and 3 capsules in the evening. pregabalin 2021-03 Yes [id number] 225mg Take 3 Univers (LYRICA) 75 1-04 capsules ity of mg capsule 00:00: by mouth Benjamin as 00 in the Medical morning Branch and 3 capsules in the evening. pregabalin 2021-03 Yes [id number] 225mg Take 3 Univers (LYRICA) 75 1-04 capsules ity of mg capsule 00:00: by mouth Benjamin as 00 in the Medical morning Branch and 3 capsules in the evening. Mounjaro 2021-03 Yes 1{syrin Q7D Inject [address] 2.5 mg/0.5 0-06 ge} Syringe [facility]ukes mL PnIj 00:00: subcutaneo Medi ami 00 usly once Center a week. lisinopriL- 2021-03 Yes 1 tablet Un [place] hydrochloro 0-05 ity of thiazide 11:10: [place] 10-12.5 mg 33 Medical per tablet Branch linaCLOtide 2021-03 Yes Univer s (LINZESS) 0-05 ity of 290 mcg Cap 11:10: [address] pantoprazol 2021-03 Yes 1 tablet Un [place] e 40 mg EC 0-05 ity of tablet 11:10: [address] lisinopriL- 2021-03 Yes 1 tablet Un [place] hydrochloro 0-05 ity of thiazide 11:10: [place] 10-12.5 mg 33 Medical per tablet Branch linaCLOtide 2021-03 Yes Univer s (LINZESS) 0-05 ity of 290 mcg Cap 11:10: [address] pantoprazol 2021-03 Yes 1 tablet Un [place] e 40 mg EC 0-05 ity of tablet 11:10: [address] lisinopriL- 2021-03 Yes 1 tablet Un [place] hydrochloro 0-05 ity of thiazide 11:10: [place] 10-12.5 mg 33 Medical per tablet Branch linaCLOtide 2021-03 Yes Univer s (LINZESS) 0-05 ity of 290 mcg Cap 11:10: [address] pantoprazol 2021-03 Yes 1 tablet Un [place] e 40 mg EC 0-05 ity of tablet 11:10: [address] lisinopriL- 2021-03 Yes 1 tablet Un [place] hydrochloro 0-05 ity of thiazide 11:10: [place] 10-12.5 mg 33 Medical per tablet Branch linaCLOtide 2021-03 Yes Univer s (LINZESS) 0-05 ity of 290 mcg Cap 11:10: [address] pantoprazol 2021-03 Yes 1 tablet Un [place] e 40 mg EC 0-05 ity of tablet 11:10: [address] lisinopriL- 2021-03 Yes 1 tablet Un [place] hydrochloro 0-05 ity of thiazide 11:10: [place] 10-12.5 mg 33 Medical per tablet Branch linaCLOtide 2021-03 Yes Univer s (LINZESS) 0-05 ity of 290 mcg Cap 11:10: [address] pantoprazol 2021-03 Yes 1 tablet Un [place] e 40 mg EC 0-05 ity of tablet 11:10: [address] lisinopriL- 2021-03 Yes 1 tablet Un [place] hydrochloro 0-05 ity of thiazide 11:10: [place] 10-12.5 mg 33 Medical per tablet [place] linaCLOtide 2021-03 Yes Univer s (LINZESS) 0-05 ity of 290 mcg Cap 11:10: [address] pantoprazol 2021-03 Yes 1 tablet Un [place] e 40 mg EC 0-05 ity of tablet 11:10: [address] lisinopriL- 2021-03 Yes 1 tablet Un [place] hydrochloro 0-05 ity of thiazide 11:10: [place] 10-12.5 mg 33 Medical per tablet Branch linaCLOtide 2021-03 Yes Univer s (LINZESS) 0-05 ity of 290 mcg Cap 11:10: [address] pantoprazol 2021-03 Yes 1 tablet Un [place] e 40 mg EC 0-05 ity of tablet 11:10: [address] lisinopriL- 2021-03 Yes 1 tablet Un [place] hydrochloro 0-05 ity of thiazide 11:10: [place] 10-12.5 mg 33 Medical per tablet Branch linaCLOtide 2021-03 Yes Univer s (LINZESS) 0-05 ity of 290 mcg Cap 11:10: [address] pantoprazol 2021-03 Yes 1 tablet Un [place] e 40 mg EC 0-05 ity of tablet 11:10: [address] lisinopriL- 2021-03 Yes 1 tablet Un [place] hydrochloro 0-05 ity of thiazide 11:10: [place] 10-12.5 mg 33 Medical per tablet Branch linaCLOtide 2021-03 Yes Univer s (LINZESS) 0-05 ity of 290 mcg Cap 11:10: [place] [address] Medical [place] pantoprazol 2021-03 Yes 1 tablet Un [place] e 40 mg EC 0-05 ity of tablet 11:10: [address] lisinopriL- 2021-03 Yes 1 tablet Un [place] hydrochloro 0-05 ity of thiazide 11:10: [place] 10-12.5 mg 33 Medical per tablet Branch linaCLOtide 2021-03 Yes Univer s (LINZESS) 0-05 ity of 290 mcg Cap 11:10: [address] pantoprazol 2021-03 Yes 1 tablet Un [place] e 40 mg EC 0-05 ity of tablet 11:10: [address] lisinopriL- 2021-03 Yes 1 tablet Un [place] hydrochloro 0-05 ity of thiazide 11:10: [place] 10-12.5 mg 33 Medical per tablet Branch linaCLOtide 2021-03 Yes Univer s (LINZESS) 0-05 ity of 290 mcg Cap 11:10: [address] pantoprazol 2021-03 Yes 1 tablet Un [place] e 40 mg EC 0-05 ity of tablet 11:10: [address] lisinopriL- 2021-03 Yes 1 tablet Un [place] hydrochloro 0-05 ity of thiazide 11:10: [place] 10-12.5 mg 33 Medical per tablet Branch linaCLOtide 2021-03 Yes Univer s (LINZESS) 0-05 ity of 290 mcg Cap 11:10: [address] pantoprazol 2021-03 Yes 1 tablet Un [place] e 40 mg EC 0-05 ity of tablet 11:10: [address] lisinopriL- 2021-03 Yes 1 tablet Un [place] hydrochloro 0-05 ity of thiazide 11:10: [place] 10-12.5 mg 33 Medical per tablet Branch linaCLOtide 2021-03 Yes Univer s (LINZESS) 0-05 ity of 290 mcg Cap 11:10: [address] pantoprazol 2021-03 Yes 1 tablet Un [place] e 40 mg EC 0-05 ity of tablet 11:10: [address] lisinopriL- 2021-03 Yes 1 tablet Un [place] hydrochloro 0-05 ity of thiazide 11:10: [place] 10-12.5 mg 33 Medical per tablet Branch linaCLOtide 2021-03 Yes Univer s (LINZESS) 0-05 ity of 290 mcg Cap 11:10: [address] pantoprazol 2021-03 Yes 1 tablet Un [place] e 40 mg EC 0-05 ity of tablet 11:10: [address] lisinopriL- 2021-03 Yes 1 tablet Un [place] hydrochloro 0-05 ity of thiazide 11:10: [place] 10-12.5 mg 33 Medical per tablet Branch linaCLOtide 2021-03 Yes Univer s (LINZESS) 0-05 ity of 290 mcg Cap 11:10: [address] pantoprazol 2021-03 Yes 1 tablet Un [place] e 40 mg EC 0-05 ity of tablet 11:10: [address] lisinopriL- 2021-03 Yes 1 tablet Un [place] hydrochloro 0-05 ity of thiazide 11:10: [place] 10-12.5 mg 33 Medical per tablet Branch linaCLOtide 2021-03 Yes Univer s (LINZESS) 0-05 ity of 290 mcg Cap 11:10: [address] pantoprazol 2021-03 Yes 1 tablet Un [place] e 40 mg EC 0-05 ity of tablet 11:10: [address] lisinopriL- 2021-03 Yes 1 tablet Un [place] hydrochloro 0-05 ity of thiazide 11:10: [place] 10-12.5 mg 33 Medical per tablet Branch linaCLOtide 2021-03 Yes Univer s (LINZESS) 0-05 ity of 290 mcg Cap 11:10: [address] pantoprazol 2021-03 Yes 1 tablet Un [place] e 40 mg EC 0-05 ity of tablet 11:10: [address] lisinopriL- 2021-03 Yes 1 tablet Un [place] hydrochloro 0-05 ity of thiazide 11:10: [place] 10-12.5 mg 33 Medical per tablet Branch linaCLOtide 2021-03 Yes Univer s (LINZESS) 0-05 ity of 290 mcg Cap 11:10: [address] pantoprazol 2021-03 Yes 1 tablet Un [place] e 40 mg EC 0-05 ity of tablet 11:10: [place] 33 Medical Branch zolpidem 5 2021-03 Yes 5mg Take 5 mg Un [place] mg tablet 0-05 by mouth ity of 11:07: at bedtime [place] 37 as needed Medical for Branch Insomnia. zolpidem 2021-03 Yes 5mg Take 5 mg Un [place] mg tablet 0-05 by mouth ity of 11:07: at bedtime [place] 37 as needed Medical for Branch Insomnia. zolpidem 2021-03 Yes 5mg Take 5 mg [place] mg tablet 0-05 by mouth ity of 11:07: at bedtime [place] 37 as needed Medical for Branch Insomnia. zolpidem 2021-03 Yes 5mg Take 5 mg [place] mg tablet 0-05 by mouth ity of 11:07: at bedtime [place] 37 as needed Medical for Branch Insomnia. zolpidem 2021-03 Yes 5mg Take 5 mg [place] mg tablet 0-05 by mouth ity of 11:07: at bedtime [place] 37 as needed Medical for Branch Insomnia. zolpidem 2021-03 Yes 5mg Take 5 mg [place] mg tablet 0-05 by mouth ity of 11:07: at bedtime [place] 37 as needed Medical for Branch Insomnia. zolpidem 2021-03 Yes 5mg Take 5 mg [place] mg tablet 0-05 by mouth ity of 11:07: at bedtime [place] 37 as needed Medical for Branch Insomnia. zolpidem 2021-03 Yes 5mg Take 5 mg Un [place] mg tablet 0-05 by mouth ity of 11:07: at bedtime [place] 37 as needed Medical for Branch Insomnia. zolpidem 2021-03 Yes 5mg Take 5 mg Un [place] mg tablet 0-05 by mouth ity of 11:07: at bedtime [place] 37 as needed Medical for Branch Insomnia. zolpidem 2021-03 Yes 5mg Take 5 mg [place] mg tablet 0-05 by mouth ity of 11:07: at bedtime [place] 37 as needed Medical for Branch Insomnia. zolpidem 2021-03 Yes 5mg Take 5 mg [place] mg tablet 0-05 by mouth ity of 11:07: at bedtime [place] 37 as needed Medical for Branch Insomnia. zolpidem 5 2022-1 Yes 5mg Take 5 mg [place] mg tablet 0-05 by mouth ity of 11:07: at bedtime [place] [address] as needed Medical for Branch Insomnia. zolpidem 5 2021-03 Yes 5mg Take 5 mg Un [place] mg tablet 0-05 by mouth ity of [place] [address] [place] Medical for Branch Insomnia. zolpidem 2021-03 Yes 5mg Take 5 mg [place] mg tablet 0-05 by mouth ity of 11:07: at bedtime [place] [address] as needed Medical for Branch Insomnia. zolpidem 5 2021-03 Yes 5mg Take 5 mg [place] mg tablet 0-05 by mouth ity of [place]: [place] [address] as needed Medical for Branch Insomnia. zolpidem 2021-03 Yes 5mg Take 5 mg [place] mg tablet 0-05 by mouth ity of [place]: [place] [address] as needed Medical for Branch Insomnia. zolpidem 2021-03 Yes 5mg Take 5 mg [place] mg tablet 0-05 by mouth ity of 11:07: at bedtime [place] [address] as needed Medical for Branch Insomnia. zolpidem 2021-03 Yes 5mg Take 5 mg [facility] [place] mg tablet 0-05 [place] [id number] [place] Medical for Branch Insomnia. zolpidem 2021-03 Yes 5mg Take 5 mg [facility] [place] mg tablet 0-05 by mouth ity of 11:07: [place] [id number] as needed Medical for Branch Insomnia. letrozole 2021-03 Yes [address] [facility] tablet 00 Center cholecalcif 2021-03 Yes Infiltratin 5000U Take 1 [facility] crow, 0-05 g duct tablet ity of vitamin D3, 00:00: carcinoma, (5,000 [place] (Vitamin 00 NOS of Units) by D3) 5,000 upper-outer mouth An derso units tab quadrant of daily. OTC n tablet breast Cancer <Female; Center Left> letrozole 2021-03 Yes Infiltratin 2.5mg Take 1 [facility] (FEMARA) 0-05 g duct tablet ity of 2.5 mg 00:00: carcinoma, (2.5 mg) [place] tablet 00 NOS of by mouth MD upper-outer daily. [place] o quadrant of n breast Cancer <Female; Center Left> Ambien 10 Ambien 10 2021-03 No QD Ambien 10 MG MG 0-05 MG 00:00: 00 Ambien 10 Ambien 10 2021-03 No QD Ambien 10 MG MG 0-05 MG 00:00: 00 Ambien 10 Ambien 10 2021-03 No QD Ambien 10 MG MG 0-05 MG 00:00: 00 Ambien 10 Ambien 10 2021-03 No QD Ambien 10 MG MG 0-05 MG 00:00: 00 Ambien 10 Ambien 10 2021-03 No QD Ambien 10 MG MG 0-05 MG 00:00: 00 Ambien 10 Ambien 10 2021-03 No QD Ambien 10 MG MG 0-05 MG 00:00: 00 Ambien 10 Ambien 10 2021-03 No QD Ambien 10 MG MG 0-05 MG 00:00: 00 Ambien 10 Ambien 2021-03 No QD Ambien 10 MG MG 0-05 MG 00:00: 00 Ambien 10 Ambien 10 2021-03 No QD Ambien 10 MG MG 0-05 MG 00:00: 00 Cholecalcif 2021-03 Yes 5000U Take 5,000 [facility] crow, 0-05 Units by ity of Vitamin D3, 00:[place] 125 [place] 00 Medical (5,000 Branch unit) tablet Cholecalcif 2021- Yes 5000U Take 5,000 [facility] crow, 0-05 Units by ity of Vitamin D3, 00:00: [place] 125 [place] 00 Medical (5,000 Branch unit) tablet Cholecalcif 2021-1 Yes 5000U Take 5,000 [facility] crow, 0-05 Units by ity of Vitamin D3, 00:00: [place] 125 [place] 00 Medical (5,000 Branch unit) tablet Cholecalcif 2021-1 Yes 5000U Take 5,000 [facility] crow, 0-05 Units by ity of Vitamin D3, 00:00: [place]. [place] 125 [place]cg 00 Medical (5,000 Branch unit) tablet Cholecalcif 2021-1 Yes 5000U Take 5,000 [facility] crow, 0-05 Units by ity of Vitamin D3, 00:00: [place]. [place] 125 [place] 00 Medical (5,000 Branch unit) tablet Cholecalcif 2022-1 Yes 5000U Take 5,000 [facility] crow, 0-05 Units by ity of Vitamin D3, 00:00: [place]. [place] 125 [place] 00 Medical (5,000 Branch unit) tablet Cholecalcif 2022-1 Yes 5000U Take 5,000 [facility] crow, 0-05 Units by ity of Vitamin D3, 00:00: mouth. [place] 125 [place]cg 00 Medical (5,000 Branch unit) tablet Cholecalcif 2022-1 Yes 5000U Take 5,000 [facility] crow, 0-05 Units by ity of Vitamin D3, 00:00: [place]. [place] 125 [place]cg 00 Medical (5,000 Branch unit) tablet Cholecalcif 2022-1 Yes 5000U Take 5,000 [facility] crow, 0-05 Units by ity of Vitamin D3, 00:00: [place]. [place] 125 [place]cg 00 Medical (5,000 Branch unit) tablet Cholecalcif 2022-1 Yes 5000U Take 5,000 [facility] crow, 0-05 Units by ity of Vitamin D3, 00:00: mouth. [place] 125 [place]cg 00 Medical (5,000 Branch unit) tablet Cholecalcif 2022-1 Yes 5000U Take 5,000 [facility] crow, 0-05 Units by ity of Vitamin D3, 00:00: mouth. [place] 125 [place]cg 00 Medical (5,000 Branch unit) tablet Cholecalcif 2022-1 Yes 5000U Take 5,000 [facility] crow, 0-05 Units by ity of Vitamin D3, 00:00: mouth. [place] 125 [place]cg 00 Medical (5,000 Branch unit) tablet Cholecalcif 2022-1 Yes 5000U Take 5,000 [facility] crow, 0-05 Units by ity of Vitamin D3, 00:00: mouth. [place] 125 [place]cg 00 Medical (5,000 Branch unit) tablet Cholecalcif 2022-1 Yes 5000U Take 5,000 [facility] crow, 0-05 Units by ity of Vitamin D3, 00:00: mouth. [place] 125 [place]cg 00 Medical (5,000 Branch unit) tablet Cholecalcif 2022-1 Yes 5000U Take 5,000 [facility] crow, 0-05 Units by ity of Vitamin D3, 00:00: mouth. [place] 125 [place]cg 00 Medical (5,000 Branch unit) tablet Cholecalcif 2021-03 Yes 5000U Take 5,000 [facility] crow, 0-05 Units by ity of Vitamin D3, 00:00: mouth. [place] 125 [place]cg 00 Medical (5,000 Branch unit) tablet Cholecalcif 2021-03 Yes 5000U Take 5,000 [facility] crow, 0-05 Units by ity of Vitamin D3, 00:00: mouth. [place] 125 [place]cg 00 Medical (5,000 Branch unit) tablet Cholecalcif 2021-03 Yes 5000U Take 5,000 [facility] corw, 0-05 Units by ity of Vitamin D3, 00:00: [place]. [place] 125 [place] 00 Medical (5,000 Branch unit) tablet Mounjaro Mounjaro 2021-03- No Mounjaro 2.5 2.5 0-05 12-03 2.5 MG/0.5ML MG/0.5ML 00:00: 00:00 MG/0.5ML 00 :00 Mounjaro Mounjaro 2021-03- No Mounjaro 2.5 2.5 0-05 12-03 2.5 MG/0.5ML MG/0.5ML 00:00: 00:00 MG/0.5ML 00 :00 Mounjaro Mounjaro 2021-03- No Mounjaro 2.5 2.5 0-05 12-03 2.5 MG/0.5ML MG/0.5ML 00:00: 00:00 MG/0.5ML 00 :00 Mounjaro Mounjaro 2021-03- No Mounjaro 2.5 2.5 0-05 12-03 2.5 MG/0.5ML MG/0.5ML 00:00: 00:00 MG/0.5ML 00 :00 Mounjaro Mounjaro 2021-03- No Mounjaro 2.5 2.5 0-05 12-03 2.5 MG/0.5ML MG/0.5ML 00:00: 00:00 MG/0.5ML 00 :00 Mounjaro Mounjaro 2021-03- No Mounjaro 2.5 2.5 0-05 12-03 2.5 MG/0.5ML MG/0.5ML 00:00: 00:00 MG/0.5ML 00 :00 Mounjaro 5 Mounjaro 5 2021-03- No Mounjaro 5 MG/0.5ML MG/0.5ML 0-05 11-24 MG/0.5ML 00:00: 00:00 00 :00 Mounjaro 5 Mounjaro 5 2021-03- No Mounjaro 5 MG/0.5ML MG/0.5ML 0-05 11-24 MG/0.5ML 00:00: 00:00 00 :00 pregabalin 2021-03- No 75mg Take 75 mg [facility] 75 mg 0-03 10-03 by mouth 3 ity of capsule 14:11: 00:00 (three) [place] 16 :00 times Medical daily. Branch pregabalin 2021-03- No 75mg Take 75 mg [facility] 75 mg 0-03 10-03 by mouth 3 ity of capsule 14:11: 00:00 (three) [place] 16 :00 times Medical daily. Branch traMADoL 50 2021-03 Yes 50mg Take 50 mg [facility] mg tablet 0-03 by mouth ity of 00:00: every 6 [place] 00 (six) Medical hours as Branch needed. traMADoL 50 2021-03 Yes 50mg Take 50 mg [facility] mg tablet 0-03 by mouth ity of 00:00: every 6 [place] 00 (six) Medical hours as Branch needed. traMADoL 50 2021-03 Yes 50mg Take 50 mg [facility] mg tablet 0-03 by mouth ity of 00:00: every 6 [place] 00 (six) Medical hours as Branch needed. traMADoL 50 2021-03 Yes 50mg Take 50 mg [facility] mg tablet 0-03 by mouth ity of 00:00: every 6 [place] 00 (six) Medical hours as Branch needed. traMADoL 50 2021-03 Yes 50mg Take 50 mg [facility] mg tablet 0-03 by mouth ity of 00:00: every 6 [place] 00 (six) Medical hours as Branch needed. traMADoL 50 2021-03 Yes 50mg Take 50 mg [facility] mg tablet 0-03 by mouth ity of 00:00: every 6 [place] 00 (six) Medical hours as Branch needed. pregabalin 2021-03 Yes [address] [facility] 75 [facility]-03 [facility] Center traMADol traMADol 2021-03 No 1{table traMADol HCl 50 MG HCl 50 MG 0-03 t_as_ne HCl 50 MG 00:00: eded} 00 traMADol traMADol 2021-03 No 1{table traMADol HCl 50 MG HCl 50 MG 0-03 t_as_ne HCl 50 MG 00:00: eded} 00 traMADol traMADol 2021-03 No 1{table traMADol HCl 50 MG HCl 50 MG 0-03 t_as_ne HCl 50 MG 00:00: eded} 00 traMADol traMADol 2021-03 No 1{table traMADol HCl 50 MG HCl 50 MG 0-03 t_as_ne HCl 50 MG 00:00: eded} 00 traMADol traMADol 2021-03 No 1{table traMADol HCl 50 MG HCl 50 MG 0-03 t_as_ne HCl 50 MG 00:00: eded} 00 traMADol traMADol 2021-03 No 1{table traMADol HCl 50 MG HCl 50 MG 0-03 t_as_ne HCl 50 MG 00:00: eded} 00 traMADol traMADol 2021-03 No 1{table traMADol HCl 50 MG HCl 50 MG 0-03 t_as_ne HCl 50 MG 00:00: eded} 00 traMADol traMADol 2021-03 No 1{table traMADol HCl 50 MG HCl 50 MG 0-03 t_as_ne HCl 50 MG 00:00: eded} 00 traMADol traMADol 2021-03 No 1{table traMADol HCl 50 MG HCl 50 MG 0-03 t_as_ne HCl 50 MG 00:00: eded} 00 traMADol traMADol 2021-03 No 1{table traMADol HCl 50 MG HCl 50 MG 0-03 t_as_ne HCl 50 MG 00:00: eded} 00 traMADol traMADol 2021- No 1{table traMADol HCl 50 MG HCl 50 MG 0-03 t_as_ne HCl 50 MG 00:00: eded} 00 traMADol traMADol 2021-03 No 1{table traMADol HCl 50 MG HCl 50 MG 0-03 t_as_ne HCl 50 MG 00:00: eded} 00 traMADoL 50 2021-03 Yes 50mg Take 50 mg [facility] mg tablet 0-03 by mouth ity of 00:00: every 6 [place] 00 (six) Medical hours as Branch needed. traMADoL 50 2021-03 Yes 50mg Take 50 mg [facility] mg tablet 0-03 by mouth ity of 00:00: every 6 [place] 00 (six) Medical hours as Branch needed. traMADoL 50 2021-03 Yes 50mg Take 50 mg [facility] mg tablet 0-03 by mouth ity of 00:00: every 6 [place] 00 (six) Medical hours as Branch needed. traMADoL 50 2021-03 Yes 50mg Take 50 mg [facility] mg tablet 0-03 by mouth ity of 00:00: every 6 [place] 00 (six) Medical hours as Branch needed. traMADoL 50 2021-03 Yes 50mg Take 50 mg [facility] mg tablet 0-03 by mouth ity of 00:00: every 6 [place] 00 (six) Medical hours as Branch needed. traMADoL 50 2021-03 Yes 50mg Take 50 mg [facility] mg tablet 0-03 by mouth ity of 00:00: every 6 [place] 00 (six) Medical hours as Branch needed. traMADoL 50 2021-03 Yes 50mg Take 50 mg [facility] mg tablet 0-03 by mouth ity of 00:00: every 6 [place] 00 (six) Medical hours as Branch needed. traMADoL 50 2021-03 Yes 50mg Take 50 mg [facility] mg tablet 0-03 by mouth ity of 00:00: every 6 [place] 00 (six) Medical hours as Branch needed. traMADoL 50 2021-03 Yes 50mg Take 50 mg [facility] mg tablet 0-03 by mouth ity of 00:00: every 6 [place] 00 (six) Medical hours as Branch needed. traMADoL 50 2021-03 Yes 50mg Take 50 mg [facility] mg tablet 0-03 by mouth ity of 00:00: every 6 [place] 00 (six) Medical hours as Branch needed. traMADoL 50 2021-03 Yes 50mg Take 50 mg [facility] mg tablet 0-03 by mouth ity of 00:00: every 6 [place] 00 (six) Medical hours as Branch needed. traMADoL 50 2021-03 Yes 50mg Take 50 mg [facility] mg tablet 0-03 by mouth ity of 00:00: every 6 [place] 00 (six) Medical hours as Branch needed. pregabalin 2021-03- Yes [id number] 150mg Take 2 [facility] (LYRICA) 75 0-03 01-02 capsules ity of mg capsule 00:00: 05:59 by mouth [place] 00 :00 in the Medical morning Branch and 2 capsules in the evening. Do all this for 90 days. pregabalin 2021-03- Yes [id number] 150mg Take 2 [facility] (LYRICA) 75 0-03 01-02 capsules ity of mg capsule 00:00: 05:59 by mouth [place] 00 :00 in the Medical morning Branch and 2 capsules in the evening. Do all this for 90 days. pregabalin 2021-03- Yes [id number] 150mg Take 2 [facility] (LYRICA) 75 0-03 01-02 capsules ity of mg capsule 00:00: 05:59 by mouth [place] 00 :00 in the [facility] Branch and 2 capsules in the evening. Do all this for 90 days. pregabalin 2021-03- Yes [id number] 150mg Take 2 [facility] (LYRICA) 75 0-03 01-02 capsules ity of mg capsule 00:00: 05:59 by mouth [place] 00 :00 in the [facility] Branch and 2 capsules in the evening. Do all this for 90 days. pregabalin 2021-03- Yes [id number] 150mg Take 2 Univers (LYRICA) 75 0-03 01-02 capsules ity of mg capsule 00:00: 05:59 by mouth [place] 00 :00 in the [facility] Branch and 2 capsules in the evening. Do all this for 90 days. pregabalin 2021-03- Yes [id number] 150mg Take 2 [facility] (LYRICA) 75 0-03 01-02 capsules ity of mg capsule 00:00: 05:59 by mouth [place] 00 :[address] [facility] Branch and 2 capsules in the evening. Do all this for 90 days. pregabalin 2021-03- Yes [id number] 150mg Take 2 Univers (LYRICA) 75 0-03 01-02 capsules ity of mg capsule 00:00: 05:59 by mouth [place] 00 :00 in the [facility] Branch and 2 capsules in the evening. Do all this for 90 days. pregabalin 2021-03- Yes [id number] 150mg Take 2 [facility] (LYRICA) 75 0-03 01-02 capsules ity of mg capsule 00:00: 05:59 by mouth [place] 00 :00 in the Medical morning Branch and 2 capsules in the evening. Do all this for 90 days. pregabalin 2021-03- Yes [id number] 150mg Take 2 [facility] (LYRICA) 75 0-03 01-02 capsules ity of mg capsule 00:00: 05:59 by mouth [place] 00 :00 in the Medical morning Branch and 2 capsules in the evening. Do all this for 90 days. pregabalin 2021-03- Yes [id number] 150mg Take 2 [facility] (LYRICA) 75 0-03 01-02 capsules ity of mg capsule 00:00: 05:59 by mouth [place] 00 :00 in the Medical morning Branch and 2 capsules in the evening. Do all this for 90 days. pregabalin 2021-03- No [id number] 150mg Take 2 [facility] (LYRICA) 75 0-03 11-04 capsules ity of mg capsule 00:00: 00:00 by mouth [place] 00 :00 in the Medical morning Branch and 2 capsules in the evening. Do all this for 90 days. pregabalin 2021-03- No [id number] 150mg Take 2 [facility] (LYRICA) 75 0-03 11-04 capsules ity of mg capsule 00:00: 00:00 by mouth [place] 00 :00 in the Medical morning Branch and 2 capsules in the evening. Do all this for 90 days. atorvastati Yes 10mg Take 10 mg Univers n 10 mg 9-24 by mouth ity of tablet 00:00: in the [place] 00 morning. Medical Branch atorvastati 0 Yes 10mg Take 10 mg [facility] n 10 mg 9-24 by mouth ity of tablet 00:00: in the [place] 00 morning. [facility] Branch atorvastati 0 Yes 10mg Take 10 mg Univers n 10 mg 9-24 by mouth ity of tablet 00:00: in the [place] 00 morning. [facility] Branch atorvastati 0 Yes 10mg Take 10 mg Univers n 10 mg 9-24 by mouth ity of tablet 00:00: in the [place] 00 morning. Medical Branch atorvastati 2-0 Yes 10mg Take 10 mg Univers n 10 mg 9-24 by mouth ity of tablet 00:00: in the [place] 00 morning. Medical Branch atorvastati 2-0 Yes 10mg Take 10 mg Univers n 10 mg 9-24 by mouth ity of tablet 00:00: in the [place] 00 morning. Medical Branch atorvastati 2-0 Yes 10mg Take 10 mg Univers n 10 mg 9-24 by mouth ity of tablet 00:00: in the [place] 00 morning. Medical Branch atorvastati 2-0 Yes 10mg Take 10 mg Univers n 10 mg 9-24 by mouth ity of tablet 00:00: in the [place] 00 morning. Medical Branch atorvastati 2-0 Yes 10mg Take 10 mg Univers n 10 mg 9-24 by mouth ity of tablet 00:00: in the [place] 00 morning. Medical Branch atorvastati 2-0 Yes 10mg Take 10 mg Univers n 10 mg 9-24 by mouth ity of tablet 00:00: in the [place] morning. Medical Branch atorvastati 2-0 Yes 10mg Take 10 mg Univers n 10 mg 9-24 by mouth ity of tablet 00:00: in the [place] 00 morning. Medical Branch atorvastati 2-0 Yes 10mg Take 10 mg Univers n 10 mg 9-24 by mouth ity of tablet 00:00: in the [place] 00 morning. Medical Branch atorvastati 2-0 Yes 10mg Take 10 mg Univers n 10 mg 9-24 by mouth ity of tablet 00:00: in the [place] morning. Medical Branch atorvastati 2-0 Yes 10mg Take 10 mg Univers n 10 mg 9-24 by mouth ity of tablet 00:00: in the [place] 00 morning. Medical Branch atorvastati 2022-0 Yes 10mg Take 10 mg Univers n 10 mg 9-24 by mouth ity of tablet 00:00: in the [place] 00 morning. Medical Branch atorvastati 2022-0 Yes 10mg Take 10 mg Univers n 10 mg 9-24 by mouth ity of tablet 00:00: in the [place] 00 morning. Medical Branch atorvastati 2022-0 Yes 10mg Take 10 mg Univers n 10 mg 9-24 by mouth ity of tablet 00:00: in the [place] morning. Medical Branch atorvastati Yes 10mg Take 10 mg [facility] n 10 mg 9-24 by mouth ity of tablet 00:00: in the [place] morning. Medical Branch atorvastati Yes [address] [facility]LIPITOR[facility] 9-24 [facility] 10 MG 00:[facility] Medical tablet Center atorvastati Yes TAKE ONE [facility] [place] n (LIPITOR) 9-24 (1) ity of 10 mg 00:00: TABLET(S) [place] tablet 00 BY MOUTH ONCE A Anderso DAY. n [facility] lisinopriL- Yes TAKE ONE [place] hydrochloro 24 (1) ity of thiazide 00:00: [place]T(S[place] (PRINZIDE,Z 00 BY MOUTH MD PRITCHARD) ONCE A Anderso 10-12.5 mg DAY. n per tablet [facility] [place] pregabalin Yes Drug-induce 150mg Take 1 Univers (Lyrica) 9-12 d capsule ity of 150 mg 00:00: polyneuropa (150 mg) [place] capsule 00 thy by mouth twice Anderso daily. n [facility] naproxen 2021- No 500mg 500 mg, Univ ers (NAPROSYN) 11-16 Oral, ity of tablet 500 21:30: 20:49 ONCE, 1 [place] as mg 00 :00 dose, On [facility] Sat Branch 11/16/21 at 1630, Routine naproxen 0 Yes [id number] 500mg Take 1 Uni vers (NAPROSYN) 11-16 tablet by ity of 500 mg 00:00: mouth in [place] tablet 00 the Medical morning Branch and 1 tablet in the evening. Take with meals. naproxen 0 Yes [id number] 500mg Take 1 Uni vers (NAPROSYN) 8- tablet by ity of 500 mg 00:00: mouth in [place] tablet 00 the Medical morning Branch and 1 tablet in the evening. Take with meals. naproxen 0 Yes [id number] 500mg Take 1 Uni vers (NAPROSYN) 11-16 tablet by ity of 500 mg 00:00: mouth in [place] tablet 00 the Medical morning Branch and 1 tablet in the evening. Take with meals. naproxen Yes [id number] 500mg Take 1 Uni vers (NAPROSYN) 8-27 tablet by ity of 500 mg 00:00: mouth in [place] tablet 00 the Medical morning Branch and 1 tablet in the evening. Take with meals. naproxen 2021- No [id number] 500mg Take 1 [facility] [place] (NAPROSYN) 8 10-05 tablet by ity of 500 mg 00:00: 00:00 mouth in [place] tablet 00 :00 the Medical morning Branch and 1 tablet in the evening. Take with meals. naproxen 2021- No [id number] 500mg Take 1 [facility] [place] (NAPROSYN) 8 10-05 tablet by ity of 500 mg 00:00: 00:00 mouth in [place] tablet 00 :00 the Medical morning Branch and 1 tablet in the evening. Take with meals. naproxen 2021- No [id number] 500mg Take 1 [facility] [place] (NAPROSYN) 11-16 1005 tablet by ity of 500 mg 00:00: 00:00 mouth in [place] tablet 00 :00 the Medical morning Branch and 1 tablet in the evening. Take with meals. pantoprazol 2021- No 20mg Take 20 mg Univers e 10-29 by mouth ity of (PROTONIX) 11:47: 00:00 daily with [place] 40 mg EC 47 :00 breakfast. MD sherron Tuttle [facility] pregabalin 2021- No Drug-induce 150mg Take 1 Univers (Lyrica) 10-2912 d capsule ity of 150 mg 00:00: 00:00 polyneuropa (150 mg) [place] capsule 00 :00 thy by mouth twice Andersvinh daily. [facility] pregabalin 2021- No Drug-induce 150mg Take 1 Univers (Lyrica) 09-27 d capsule ity of 150 mg 00:00: 00:00 polyneuropa (150 mg) [place] capsule 00 :00 thy by mouth MD dwyer Andazeb daily. [facility] Atorvastati Atorvastati 2022-0 No 1{table QD Atorvastat n Calcium n Calcium 6-30 t} in Calcium 10 MG 10 MG 00:00: 10 MG 00 Ambien 10 Ambien 10 2021-0 No QD Ambien 10 MG MG 6-30 MG 00:00: 00 Atorvastati Atorvastati 2021-0 No 1{table QD Atorvastat n Calcium n Calcium 6-30 t} in [place] 10 MG 10 MG 00:00: 10 MG 00 Ambien 10 Ambien 10 2021-0 No QD Ambien 10 MG MG 6-30 MG 00:00: 00 Lomaira 8 Lomaira 8 2021-0 2021- No TID [place] 8 MG MG 6-30 07-30 MG 00:00: 00:00 00 :00 [place] 8 [place] 8 2021-0 2021- No TID [place] 8 MG MG 6-30 07-30 MG 00:00: 00:00 00 :00 traMADol traMADol 2021-0 No 1{table traMADol HCl 50 MG HCl 50 MG 6-14 t_as_ne HCl 50 MG 00:00: eded} 00 traMADol traMADol 2021-0 No 1{table traMADol HCl 50 MG HCl 50 MG 6-14 t_as_ne HCl 50 MG 00:00: eded} 00 traMADol traMADol 2021-0 No 1{table traMADol HCl 50 MG HCl 50 MG 6-14 t_as_ne HCl 50 MG 00:00: eded} 00 traMADol traMADol 2-0 No 1{table traMADol HCl 50 MG HCl 50 MG 6-14 t_as_ne HCl 50 MG 00:00: eded} 00 traMADol traMADol 2-0 No 1{table traMADol HCl 50 MG HCl 50 MG 6-14 t_as_ne HCl 50 MG 00:00: eded} 00 traMADol traMADol 2-0 No 1{table traMADol HCl 50 MG HCl 50 MG 6-14 t_as_ne HCl 50 MG 00:00: eded} 00 traMADol traMADol 2-0 No 1{table traMADol HCl 50 MG HCl 50 MG 6-14 t_as_ne HCl 50 MG 00:00: eded} 00 traMADol traMADol 2-0 No 1{table traMADol HCl 50 MG HCl 50 MG 6-14 t_as_ne HCl 50 MG 00:00: eded} 00 traMADol traMADol 2-0 No 1{table traMADol HCl 50 MG HCl 50 MG 6-14 t_as_ne HCl 50 MG 00:00: eded} 00 traMADol traMADol 2-0 No 1{table traMADol HCl 50 MG HCl 50 MG 6-14 t_as_ne HCl 50 MG 00:00: eded} 00 traMADol traMADol 2-0 No 1{table traMADol HCl 50 MG HCl 50 MG 6-14 t_as_ne HCl 50 MG 00:00: eded} 00 traMADol traMADol 2-0 No 1{table traMADol HCl 50 MG HCl 50 MG 6-14 t_as_ne HCl 50 MG 00:00: eded} 00 traMADol traMADol 2-0 No 1{table traMADol HCl 50 MG HCl 50 MG 6-14 t_as_ne HCl 50 MG 00:00: eded} 00 traMADol traMADol 2-0 No 1{table traMADol HCl 50 MG HCl 50 MG 6-14 t_as_ne HCl 50 MG 00:00: eded} 00 traMADol traMADol 2-0 No 1{table traMADol HCl 50 MG HCl 50 MG 6-14 t_as_ne HCl 50 MG 00:00: eded} 00 traMADol traMADol 2-0 No 1{table traMADol HCl 50 MG HCl 50 MG 6-14 t_as_ne HCl 50 MG 00:00: eded} 00 traMADol traMADol 2-0 No 1{table traMADol HCl 50 MG HCl 50 MG 6-14 t_as_ne HCl 50 MG 00:00: eded} 00 traMADol traMADol 2-0 No 1{table traMADol HCl 50 MG HCl 50 MG 6-14 t_as_ne HCl 50 MG 00:00: eded} 00 traMADol traMADol 2-0 No 1{table traMADol HCl 50 MG HCl 50 MG 6-14 t_as_ne HCl 50 MG 00:00: eded} 00 traMADol traMADol 2-0 No 1{table traMADol HCl 50 MG HCl 50 MG 6-14 t_as_ne HCl 50 MG 00:00: eded} 00 traMADol traMADol 2-0 No 1{table traMADol HCl 50 MG HCl 50 MG 6-14 t_as_ne HCl 50 MG 00:00: eded} 00 Lisinopril- Lisinopril- 2021-0 No 1{table QD Lisinopril hydroCHLORO hydroCHLORO 6-02 t} -hydroCHLO thiazide thiazide 00:00: ROthiazide 10-12.5 MG 10-12.5 MG 00 10-12.5 MG Pseudoeph-B Pseudoeph-B 202-0 No Pseudoeph- romphen-DM romphen-DM 6-02 Bromphen-D 30-2-10 30-2-10 00:00: M 30-2-10 MG/5ML MG/5ML 00 MG/5ML Kenalog Kenalog 2021-0 No 40mg Common (Triamcinol (Triamcinol 08-22 S pirit one) one) 00:00: - [facility] Bupivicaine Bupivicaine 2021-0 No 2.5mg Common [place] 08-22 Spirit 00:00: - [facility] traMADol traMADol 2021-0 No 1{table traMADol HCl 50 MG HCl 50 MG 6-02 t_as_ne HCl 50 MG 00:00: eded} 00 Lisinopril- Lisinopril- 2021-0 No 1{table QD Lisinopril hydroCHLORO hydroCHLORO 6-02 t} -hydroCHLO thiazide thiazide 00:00: ROthiazide 10-12.5 MG 10-12.5 MG 00 10-12.5 MG Pseudoeph-B Pseudoeph-B 2021-0 No Pseudoeph- romphen-DM romphen-DM - Bromphen-D 30-2-10 30-2-10 00:00: M 30-2-10 MG/5ML MG/5ML 00 MG/5ML Kenalog Kenalog 2021-0 No 40mg Common (Triamcinol (Triamcinol - S pirit one) one) 00:00: - [facility] Bupivicaine Bupivicaine 2021-0 No 2.5mg [facility] [place] 08-22 Spirit 00:00: - [facility] 00 [facility] traMADol traMADol 2021-0 No 1{table traMADol HCl 50 MG HCl 50 MG - t_as_ne HCl 50 MG 00:00: eded} 00 Lisinopril- Lisinopril- 2021-0 No 1{table QD Lisinopril hydroCHLORO hydroCHLORO 08-22 t} -hydroCHLO thiazide thiazide 00:00: ROthiazide 10-12.5 MG 10-12.5 MG 00 10-12.5 MG Pseudoeph-B Pseudoeph-B 2021-0 No Pseudoeph- romphen-DM romphen-DM 6- Bromphen-D 30-2-10 30-2-10 00:00: M 30-2-10 MG/5ML MG/5ML 00 MG/5ML Kenalog Kenalog 2021-0 No 40mg Common (Triamcinol (Triamcinol - S pirit one) one) 00:00: - [facility] Bupivicaine Bupivicaine 2021-0 No 2.5mg Common [place] 08-22 Spirit 00:00: - [facility] Pseudoeph-B Pseudoeph-B 2021-0 No Pseudoeph- romphen-DM romphen-DM - Bromphen-D 30-2-10 302-10 00:00: M 30-2-10 MG/5ML MG/5ML 00 MG/5ML traMADol traMADol 2021-0 No 1{table traMADol HCl 50 MG HCl 50 MG - t_as_ne HCl 50 MG 00:00: eded} 00 Kenalog Kenalog 2021-0 No 40mg Common (Triamcinol (Triamcinol - S pirit one) one) 00:00: - [facility] Bupivicaine Bupivicaine 2021-0 No 2.5mg [facility] [place] 08-22 Spirit 00:00: - [facility] Pseudoeph-B Pseudoeph-B 2021-0 No Pseudoeph- romphen-DM romphen-DM 6- Bromphen-D 30-2-10 30-2-10 00:00: M 30-2-10 MG/5ML MG/5ML 00 MG/5ML traMADol traMADol 2021-0 No 1{table traMADol HCl 50 MG HCl 50 MG 6-02 t_as_ne HCl 50 MG 00:00: eded} 00 Kenalog Kenalog 2021-0 No 40mg Common (Triamcinol (Triamcinol 6- S pirit one) one) 00:00: - [facility] 00 [facility] Bupivicaine Bupivicaine 2021-0 No 2.5mg [facility] [place] 08-22 Spirit 00:00: - [facility] 00 [facility] Pseudoeph-B Pseudoeph-B 2021-0 No Pseudoeph- romphen-DM romphen-DM 6- Bromphen-D 30-2-10 30-2-10 00:00: M 30-2-10 MG/5ML MG/5ML 00 MG/5ML traMADol traMADol 2021-0 No 1{table traMADol HCl 50 MG HCl 50 MG 6-02 t_as_ne HCl 50 MG 00:00: eded} 00 Kenalog Kenalog 2021-0 No 40mg Common (Triamcinol (Triamcinol - S pirit one) one) 00:00: - [facility] 00 [facility] Bupivicaine Bupivicaine 2021-0 No 2.5mg Common [place] 08-22 Spirit 00:00: - [facility] traMADol traMADol 2021-0 No 1{table traMADol HCl 50 MG HCl 50 MG 6-02 t_as_ne HCl 50 MG 00:00: eded} 00 Pseudoeph-B Pseudoeph-B 2021-0 No Pseudoeph- romphen-DM romphen-DM 6-02 Bromphen-D 30-2-10 30-2-10 00:00: M 30-2-10 MG/5ML MG/5ML 00 MG/5ML Kenalog Kenalog 2021-0 No 40mg Common (Triamcinol (Triamcinol 6-02 S pirit one) one) 00:00: - [facility] 00 [facility] Bupivicaine Bupivicaine 2-0 No 2.5mg Common [place] 08-22 Spirit 00:00: - [facility] 00 [facility] traMADol traMADol 2021-0 No 1{table traMADol HCl 50 MG HCl 50 MG 6-02 t_as_ne HCl 50 MG 00:00: eded} 00 Pseudoeph-B Pseudoeph-B 2021-0 No Pseudoeph- romphen-DM romphen-DM 6- Bromphen-D 30-2-10 30-2-10 00:00: M 30-2-10 MG/5ML MG/5ML 00 MG/5ML Kenalog Kenalog 2-0 No 40mg Common (Triamcinol (Triamcinol 6- S pirit one) one) 00:00: - [facility] 00 [facility] Bupivicaine Bupivicaine 2-0 No 2.5mg [place]22 Spirit 00:00: - [facility] 00 [facility] traMADol traMADol 2021-0 No 1{table traMADol HCl 50 MG HCl 50 MG 6- t_as_ne HCl 50 MG 00:00: eded} 00 Pseudoeph-B Pseudoeph-B 2021-0 No Pseudoeph- romphen-DM romphen-DM 6- Bromphen-D 30-2-10 210 00:00: M 30-2-10 MG/5ML MG/5ML 00 MG/5ML Kenalog Kenalog 2021-0 No 40mg Common (Triamcinol (Triamcinol 6-02 S pirit one) one) 00:00: - [facility] Bupivicaine Bupivicaine 2-0 No 2.5mg Common [place]-22 Spirit 00:00: - [facility] 00 [facility] traMADol traMADol 2021-0 No 1{table traMADol HCl 50 MG HCl 50 MG 6- t_as_ne HCl 50 MG 00:00: eded} 00 Pseudoeph-B Pseudoeph-B 2021-0 No Pseudoeph- romphen-DM romphen-DM 6-02 Bromphen-D 30-2-10 30-2-10 00:00: M 30-2-10 MG/5ML MG/5ML 00 MG/5ML Kenal[place] Kenalog 2-0 No 40mg Common (Triamcinol (Triamcinol 6-02 S pirit one) one) 00:00: - [facility] Bupivicaine Bupivicaine 2-0 No 2.5mg Common [place] - Spirit 00:00: - [facility] traMADol traMADol 2021-0 No 1{table traMADol HCl 50 MG HCl 50 MG 6-02 t_as_ne HCl 50 MG 00:00: eded} 00 Pseudoeph-B Pseudoeph-B 2021-0 No Pseudoeph- romphen-DM romphen-DM 6- Bromphen-D 30-2-10 302-10 00:00: M 30-2-10 MG/5ML MG/5ML 00 MG/5ML Kenalog Kenalog 2021-0 No 40mg Common (Triamcinol (Triamcinol - S pirit one) one) 00:00: - [facility] Bupivicaine Bupivicaine 2-0 No 2.5mg Common [place] 08-22 Spirit 00:00: - [facility] traMADol traMADol 2021-0 No 1{table traMADol HCl 50 MG HCl 50 MG 6-02 t_as_ne HCl 50 MG 00:00: eded} 00 Pseudoeph-B Pseudoeph-B 2021-0 No Pseudoeph- romphen-DM romphen-DM 6- Bromphen-D 302-10 -10 00:00: M 30-2-10 MG/5ML MG/5ML 00 MG/5ML Kenalog Kenalog 2-0 No 40mg Common (Triamcinol (Triamcinol - S pirit one) one) 00:00: - [facility] Bupivicaine Bupivicaine 2-0 No 2.5mg Common [place] 08-22 Spirit 00:00: - [facility] traMADol traMADol 2-0 No 1{table traMADol HCl 50 MG HCl 50 MG 6-02 t_as_ne HCl 50 MG 00:00: eded} 00 Pseudoeph-B Pseudoeph-B 2021-0 No Pseudoeph- romphen-DM romphen-DM 6-02 Bromphen-D 30-2-10 302-10 00:00: M 30-2-10 MG/5ML MG/5ML 00 MG/5ML Kenalog Kenalog 2-0 No 40mg Common (Triamcinol (Triamcinol 6- S pirit one) one) 00:00: - [facility] Bupivicaine Bupivicaine 2-0 No 2.5mg Common [place] 08-22 Spirit 00:00: - [facility] traMADol traMADol 2021-0 No 1{table traMADol HCl 50 MG HCl 50 MG 6- t_as_ne HCl 50 MG 00:00: eded} 00 Pseudoeph-B Pseudoeph-B 2021-0 No Pseudoeph- romphen-DM romphen-DM 6- Bromphen-D 30-2-10 302-10 00:00: M 30-2-10 MG/5ML MG/5ML 00 MG/5ML Kenalog Kenalog 2021-0 No 40mg Common (Triamcinol (Triamcinol 6- S pirit one) one) 00:00: - [facility] Bupivicaine Bupivicaine 2021-0 No 2.5mg Common [place] 08-22 Spirit 00:00: - [facility] traMADol traMADol 2021-0 No 1{table traMADol HCl 50 MG HCl 50 MG 6-02 t_as_ne HCl 50 MG 00:00: eded} 00 Pseudoeph-B Pseudoeph-B 2021-0 No Pseudoeph- romphen-DM romphen-DM 6- Bromphen-D 30-2-10 302-10 00:00: M 30-2-10 MG/5ML MG/5ML 00 MG/5ML Kenalog Kenalog 2-0 No 40mg Common (Triamcinol (Triamcinol 6-02 S pirit one) one) 00:00: - [facility] Bupivicaine Bupivicaine 2-0 No 2.5mg Common [place] 08-22 Spirit 00:00: - [facility] traMADol traMADol 2021-0 No 1{table traMADol HCl 50 MG HCl 50 MG 6-02 t_as_ne HCl 50 MG 00:00: eded} 00 Pseudoeph-B Pseudoeph-B 2021-0 No Pseudoeph- romphen-DM romphen-DM 6-02 Bromphen-D 30-2-10 302-10 00:00: M 30-2-10 MG/5ML MG/5ML 00 MG/5ML Kenalog Kenalog 2-0 No 40mg Common (Triamcinol (Triamcinol 6-02 S pirit one) one) 00:00: - [facility] Bupivicaine Bupivicaine 2021-0 No 2.5mg Common [place] 08-22 Spirit 00:00: - [facility] 00 [facility] traMADol traMADol 2021-0 No 1{table traMADol HCl 50 MG HCl 50 MG 6- t_as_ne HCl 50 MG 00:00: eded} 00 Pseudoeph-B Pseudoeph-B 2021-0 No Pseudoeph- romphen-DM romphen-DM 6- Bromphen-D 302-10 00:00: M 30-2-10 MG/5ML MG/5ML 00 MG/5ML Kenalog Kenalog 2-0 No 40mg Common (Triamcinol (Triamcinol 6-02 S pirit one) one) 00:00: - [facility] Bupivicaine Bupivicaine 2021-0 No 2.5mg Common [place] 08-22 Spirit 00:00: - [facility] traMADol traMADol 2021-0 No 1{table traMADol HCl 50 MG HCl 50 MG 6-02 t_as_ne HCl 50 MG 00:00: eded} 00 Pseudoeph-B Pseudoeph-B 2021-0 No Pseudoeph- romphen-DM romphen-DM 6-02 Bromphen-D 30-2-10 302-10 00:00: M 30-2-10 MG/5ML MG/5ML 00 MG/5ML Kenalog Kenalog 2-0 No 40mg Common (Triamcinol (Triamcinol 6-02 S pirit one) one) 00:00: - [facility] Bupivicaine Bupivicaine 2-0 No 2.5mg Common [place] - Spirit 00:00: - [facility] traMADol traMADol 2021-0 No 1{table traMADol HCl 50 MG HCl 50 MG 6-02 t_as_ne HCl 50 MG 00:00: eded} 00 Pseudoeph-B Pseudoeph-B 2021-0 No Pseudoeph- romphen-DM romphen-DM 6- Bromphen-D 302-10 00:00: M 30-2-10 MG/5ML MG/5ML 00 MG/5ML Kenalog Kenalog 2021-0 No 40mg Common (Triamcinol (Triamcinol - S pirit one) one) 00:00: - [facility] Bupivicaine Bupivicaine 2021-0 No 2.5mg Common [place] 08-22 Spirit 00:00: - [facility] traMADol traMADol 2021-0 No 1{table traMADol HCl 50 MG HCl 50 MG 6- t_as_ne HCl 50 MG 00:00: eded} 00 Pseudoeph-B Pseudoeph-B 2021-0 No Pseudoeph- romphen-DM romphen-DM - Bromphen-D 30- 00:00: M 30-2-10 MG/5ML MG/5ML 00 MG/5ML Kenalog Kenalog 2021-0 No 40mg Common (Triamcinol (Triamcinol - S pirit one) one) 00:00: - [facility] Bupivicaine Bupivicaine 2021-0 No 2.5mg Common [place] 08-22 Spirit 00:00: - [facility] Pseudoeph-B Pseudoeph-B 2021-0 No Pseudoeph- romphen-DM romphen-DM -02 Bromphen-D 302-10 302-10 00:00: M 30-2-10 MG/5ML MG/5ML 00 MG/5ML traMADol traMADol 2-0 No 1{table traMADol HCl 50 MG HCl 50 MG 6-02 t_as_ne HCl 50 MG 00:00: eded} 00 Lisinopril- Lisinopril- 2022-0 No 1{table QD Lisinopril hydroCHLORO hydroCHLORO 6-02 t} -hydroCHLO thiazide thiazide 00:00: ROthiazide 10-12.5 MG 10-12.5 MG 00 10-12.5 MG Ambien 10 Ambien 10 2021-0 No QD Ambien 10 MG MG 6-02 MG 00:00: 00 Kenalog Kenalog 2-0 No 40mg Common (Triamcinol (Triamcinol 6-02 S pirit one) one) 00:00: - [facility] 00 [facility] Bupivicaine Bupivicaine 2-0 No 2.5mg Common [place] 08-22 Spirit 00:00: - [facility] 00 [facility] Ambien 10 Ambien 10 2021-0 No QD Ambien 10 MG MG 6-02 MG 00:00: 00 traMADol traMADol 2-0 No 1{table traMADol HCl 50 MG HCl 50 MG 6-02 t_as_ne HCl 50 MG 00:00: eded} 00 Lisinopril- Lisinopril- 2-0 No 1{table QD Lisinopril hydroCHLORO hydroCHLORO 6-02 t} -hydroCHLO thiazide thiazide 00:00: ROthiazide 10-12.5 MG 10-12.5 MG 00 10-12.5 MG Pseudoeph-B Pseudoeph-B 2-0 No Pseudoeph- romphen-DM romphen-DM - Bromphen-D 30-2-10 30-2-10 00:00: M 30-2-10 MG/5ML MG/5ML 00 MG/5ML Kenalog Kenalog 2-0 No 40mg Common (Triamcinol (Triamcinol 6-02 S pirit one) one) 00:00: - [facility] 00 [facility] Bupivicaine Bupivicaine 2-0 No 2.5mg Common [place] - [facility] 00:00: - [facility] 00 [facility] Lisinopril- Lisinopril- 2022-0 No 1{table QD Lisinopril hydroCHLORO hydroCHLORO 6-02 t} -hydroCHLO thiazide thiazide 00:00: ROthiazide 10-12.5 MG 10-12.5 MG 00 10-12.5 MG traMADol traMADol 2021-0 No 1{table traMADol HCl 50 MG HCl 50 MG 6-02 t_as_ne HCl 50 MG 00:00: eded} 00 Pseudoeph-B Pseudoeph-B No Pseudoeph- romphen-DM romphen-DM - Bromphen-D 00:00: M 30-2-10 MG/5ML MG/5ML 00 MG/5ML Ambien 10 Ambien 10 No QD Ambien 10 MG MG 6-02 MG 00:00: 00 Kenalog Kenalog No 40mg Common (Triamcinol (Triamcinol - S pirit one) one) 00:00: - [facility] 00 [facility] Bupivicaine Bupivicaine 0 No 2.5mg Common [place] 08-22 Spirit 00:00: - [facility] 00 [facility] traMADoL 0 Yes 1 tablet [facility] S t (ULTRAM) 50 08-22 as needed [place] mg tablet 00:00: Medical 00 [place] traMADol traMADol 0 No 1{table traMADol HCl 50 MG HCl 50 MG - t_as_ne HCl 50 MG 00:00: eded} 00 Ambien 10 Ambien 10 No QD Ambien 10 MG MG 6-02 MG 00:00: 00 Lisinopril- Lisinopril- 0 No 1{table QD Lisinopril hydroCHLORO hydroCHLORO -02 t} -hydroCHLO thiazide thiazide 00:00: ROthiazide 10-12.5 MG 10-12.5 MG 00 10-12.5 MG Pseudoeph-B Pseudoeph-B No Pseudoeph- romphen-DM romphen-DM - Bromphen-D 00:00: M 30-2-10 MG/5ML MG/5ML 00 MG/5ML Kenalog Kenalog 0 No 40mg Common (Triamcinol (Triamcinol 6-02 S pirit one) one) 00:00: - [facility] 00 [facility] Bupivicaine Bupivicaine 2021-0 No 2.5mg Common [place] 6-02 Spirit 00:00: - [facility] 00 [facility] traMADol traMADol 2021-0 No 1{table traMADol HCl 50 MG HCl 50 MG -02 t_as_ne HCl 50 MG 00:00: eded} 00 Ambien 10 Ambien 10 2021-0 No QD Ambien 10 MG MG 6-02 MG 00:00: 00 letrozole 2-0 Yes 2.5mg Take 2.5 Uni vers 2.5 mg 6-01 mg by ity of tablet 10:12: mouth [place] [address] daily Medical Branch pregabalin 2-0 Yes 75mg Take 75 mg U nivers 75 mg 6-01 by mouth 3 ity of capsule 10:12: (three) [place] 31 times Medical daily. Branch letrozole 2-0 Yes 2.5mg Take 2.5 Uni vers 2.5 mg 6-01 mg by ity of tablet 10:12: mouth [place] [address] daily Medical Branch pregabalin 2-0 Yes 75mg Take 75 mg U nivers 75 mg 6-01 by mouth 3 ity of capsule 10:12: (three) [place] 31 times Medical daily. Branch letrozole 2-0 Yes 2.5mg Take 2.5 Uni vers 2.5 mg 6-01 mg by ity of tablet 10:12: mouth [place] [address] daily Medical Branch pregabalin 2-0 Yes 75mg Take 75 mg U nivers 75 mg 6-01 by mouth 3 ity of capsule 10:12: (three) [place] 31 times Medical daily. Branch letrozole 2022-0 Yes 2.5mg Take 2.5 Uni vers 2.5 mg 6-01 mg by ity of tablet 10:12: mouth [place] [address] daily Medical Branch pregabalin 2022-0 Yes 75mg Take 75 mg U nivers 75 mg 6-01 by mouth 3 ity of capsule 10:12: (three) [place] 31 times Medical daily. Branch letrozole 2022-0 Yes 2.5mg Take 2.5 Uni vers 2.5 mg 6-01 mg by ity of tablet 10:12: mouth [place] [address] daily Medical Branch pregabalin 2022-0 Yes 75mg Take 75 mg U nivers 75 mg 6-01 by mouth 3 ity of capsule 10:12: (three) [place] 31 times Medical daily. Branch letrozole 2022-0 Yes 2.5mg Take 2.5 Uni vers 2.5 mg 6-01 mg by ity of tablet 10:12: mouth [place] 31 daily Medical Branch pregabalin 2022-0 Yes 75mg Take 75 mg U nivers 75 mg 6-01 by mouth 3 ity of capsule 10:12: (three) [place] 31 times Medical daily. Branch letrozole 2022-0 Yes 2.5mg Take 2.5 Uni vers 2.5 mg 6-01 mg by ity of tablet 10:12: mouth [place] 31 daily Medical Branch pregabalin 2022-0 Yes 75mg Take 75 mg U nivers 75 mg 6-01 by mouth 3 ity of capsule 10:12: (three) [place] 31 times Medical daily. Branch letrozole 2022-0 Yes 2.5mg Take 2.5 Uni vers 2.5 mg 6-01 mg by ity of tablet 10:12: mouth [place] 31 daily Medical Branch pregabalin 2022-0 Yes 75mg Take 75 mg U nivers 75 mg 6-01 by mouth 3 ity of capsule 10:12: (three) [place] 31 times Medical daily. Branch letrozole 2022-0 Yes 2.5mg Take 2.5 Uni vers 2.5 mg 6-01 mg by ity of tablet 10:12: mouth [place] 31 daily Medical Branch pregabalin 2022-0 Yes 75mg Take 75 mg U nivers 75 mg 6-01 by mouth 3 ity of capsule 10:12: (three) [place] 31 times Medical daily. Branch letrozole 2022-0 Yes 2.5mg Take 2.5 Uni vers 2.5 mg 6-01 mg by ity of tablet 10:12: mouth [place] 31 daily Medical Branch letrozole 2022-0 Yes 2.5mg Take 2.5 Uni vers 2.5 mg 6-01 mg by ity of tablet 10:12: mouth [place] 31 daily Medical Branch letrozole 2022-0 Yes 2.5mg Take 2.5 Uni vers 2.5 mg 6-01 mg by ity of tablet 10:12: mouth [place] 31 daily Medical Branch letrozole 2022-0 Yes 2.5mg Take 2.5 Uni vers 2.5 mg 6-01 mg by ity of tablet 10:12: [place] [address] daily Medical Branch letrozole 2022-0 Yes 2.5mg Take 2.5 Uni vers 2.5 mg 6-01 mg by ity of tablet 10:12: [place] [address] daily Medical Branch letrozole 2022-0 Yes 2.5mg Take 2.5 Uni vers 2.5 mg 6-01 mg by ity of tablet 10:12: [place] [address] daily Medical Branch letrozole 2-0 Yes 2.5mg Take 2.5 Uni vers 2.5 mg 6-01 mg by ity of tablet 10:12: [place] [address] daily Medical Branch letrozole 2-0 Yes 2.5mg Take 2.5 Uni vers 2.5 mg 6-01 mg by ity of tablet 10:12: [place] [address] daily Medical Branch letrozole 2-0 Yes 2.5mg Take 2.5 Uni vers 2.5 mg 6-01 mg by ity of tablet 10:12: [place] [address] daily Medical Branch letrozole 2-0 Yes 2.5mg Take 2.5 Uni vers 2.5 mg 6-01 mg by ity of tablet 10:12: [place] [address] daily Medical Branch letrozole 2-0 Yes 2.5mg Take 2.5 Uni vers 2.5 mg 6-01 mg by ity of tablet 10:12: [place] [address] daily Medical Branch letrozole 2022-0 Yes 2.5mg Take 2.5 Uni vers 2.5 mg 6-01 mg by ity of tablet 10:12: [place] [address] daily Medical Branch letrozole 2022-0 Yes 2.5mg Take 2.5 Uni vers 2.5 mg 6-01 mg by ity of tablet 10:12: [place] [address] daily Medical Branch letrozole 2022-0 Yes 2.5mg Take 2.5 Uni vers 2.5 mg 6-01 mg by ity of tablet 10:12: [place] [address] daily Medical Branch letrozole 2022-0 Yes 2.5mg Take 2.5 Uni vers 2.5 mg 6-01 mg by ity of tablet 10:12: [place] [address] daily Medical Branch letrozole 2022-0 Yes 2.5mg Take 2.5 Uni vers 2.5 mg 6-01 mg by ity of tablet 10:12: [place] [address] daily Medical Branch letrozole 2022-0 Yes 2.5mg Take 2.5 Uni vers 2.5 mg 6-01 mg by ity of tablet 10:12: [place] [address] daily Medical Branch letrozole 2-0 Yes 2.5mg Take 2.5 Uni vers 2.5 mg 6-01 mg by ity of tablet 10:12: [place] [address] daily Medical Branch letrozole 2-0 Yes 2.5mg Take 2.5 Uni vers 2.5 mg 6-01 mg by ity of tablet 10:12: [place] [address] daily Medical Branch letrozole 2-0 Yes 2.5mg Take 2.5 Uni vers 2.5 mg 6-01 mg by ity of tablet 10:12: [place] [address] daily Medical Branch letrozole 2-0 Yes 2.5mg Take 2.5 Uni vers 2.5 mg 6-01 mg by ity of tablet 10:12: [place] [address] daily Medical Branch zolpidem 2022-0 Yes 5mg Take 5 mg Univ ers (AMBIEN) 5 6-01 by mouth ity o f mg tablet 10:11: at bedtime [place] 44 as needed Medical for Branch Insomnia. zolpidem 2022-0 Yes 5mg Take 5 mg Univ ers (AMBIEN) 5 6-01 by mouth ity o f mg tablet 10:11: at bedtime [place] 44 as needed Medical for Branch Insomnia. zolpidem 2022-0 Yes 5mg Take 5 mg Univ ers (AMBIEN) 5 6-01 by mouth ity o f mg tablet 10:11: at bedtime [place] 44 as needed Medical for Branch Insomnia. zolpidem 2022-0 Yes 5mg Take 5 mg Univ ers (AMBIEN) 5 6-01 by mouth ity o f mg tablet 10:11: at bedtime [place] 44 as needed Medical for Branch Insomnia. zolpidem 2022-0 Yes 5mg Take 5 mg Univ ers (AMBIEN) 5 6-01 by mouth ity o f mg tablet 10:11: at bedtime [place] 44 as needed Medical for Branch Insomnia. zolpidem 2022-0 Yes 5mg Take 5 mg Univ ers (AMBIEN) 5 6-01 by mouth ity o f mg tablet 10:11: at bedtime [place] 44 as needed Medical for Branch Insomnia. zolpidem 2022-0 Yes 5mg Take 5 mg Univ ers (AMBIEN) 5 6-01 by mouth ity o f mg tablet 10:11: at bedtime [place] 44 as needed Medical for Branch Insomnia. zolpidem 2022-0 Yes 5mg Take 5 mg Univ ers (AMBIEN) 5 6-01 by mouth ity o f mg tablet 10:11: at bedtime [place] 44 as needed Medical for Branch Insomnia. zolpidem 2022-0 Yes 5mg Take 5 mg Univ ers (AMBIEN) 5 6-01 by mouth ity o f mg tablet 10:11: at bedtime [place] 44 as needed Medical for Branch Insomnia. zolpidem 2022-0 Yes 5mg Take 5 mg Univ ers (AMBIEN) 5 6-01 by mouth ity o f mg tablet 10:11: at bedtime [place] 44 as needed Medical for Branch Insomnia. zolpidem 2022-0 Yes 5mg Take 5 mg Univ ers (AMBIEN) 5 6-01 by mouth ity o f mg tablet 10:11: at bedtime [place] 44 as needed Medical for Branch Insomnia. hydrOXYzine 2-0 Yes [id number] 25mg Take 1 Univers (VISTARIL) 5-21 capsule by ity of 25 mg 00:00: mouth 3 [place] capsule 00 (three) Medical times Branch daily as needed for Itching. mupirocin 2 2021-0 Yes [id number] Apply to Univers % ointment 5-21 area(s) 3 ity of 00:00: (three) [place] 00 times Medical daily. Branch hydrOXYzine 2-0 Yes [id number] 25mg Take 1 Univers (VISTARIL) 5-21 capsule by ity of 25 mg 00:00: mouth 3 [place] capsule 00 (three) Medical times Branch daily as needed for Itching. mupirocin 2 2-0 Yes [id number] Apply to Univers % ointment 5-21 area(s) 3 ity of 00:00: (three) [place] 00 times Medical daily. Branch hydrOXYzine 2022-0 Yes [id number] 25mg Take 1 Univers (VISTARIL) 5-21 capsule by ity of 25 mg 00:00: mouth 3 [place] capsule 00 (three) Medical times Branch daily as needed for Itching. mupirocin 2 2021-0 Yes [id number] Apply to Univers % ointment 5-21 area(s) 3 ity of 00:00: (three) [place] 00 times Medical daily. Branch hydrOXYzine 2-0 Yes [id number] 25mg Take 1 Univers (VISTARIL) 5-21 capsule by ity of 25 mg 00:00: mouth 3 [place] capsule 00 (three) Medical times Branch daily as needed for Itching. mupirocin 2 2021-0 Yes [id number] Apply to Univers % ointment 5-21 area(s) 3 ity of 00:00: (three) [place] 00 times Medical daily. Branch hydrOXYzine 2021-0 Yes [id number] 25mg Take 1 Univers (VISTARIL) 5-21 capsule by ity of 25 mg 00:00: mouth 3 [place] capsule 00 (three) Medical times Branch daily as needed for Itching. mupirocin 2 2021-0 Yes [id number] Apply to Univers % ointment 5-21 area(s) 3 ity of 00:00: (three) [place] 00 times Medical daily. Branch hydrOXYzine 2021-0 Yes [id number] 25mg Take 1 Univers (VISTARIL) 5-21 capsule by ity of 25 mg 00:00: mouth 3 [place] capsule 00 (three) Medical times Branch daily as needed for Itching. mupirocin 2 2021-0 Yes [id number] Apply to Univers % ointment 5-21 area(s) 3 ity of 00:00: (three) [place] 00 times Medical daily. Branch hydrOXYzine 2021-0 Yes [id number] 25mg Take 1 Univers (VISTARIL) 5-21 capsule by ity of 25 mg 00:00: mouth 3 [place] capsule 00 (three) Medical times Branch daily as needed for Itching. mupirocin 2 2021-0 Yes [id number] Apply to Univers % ointment 5-21 area(s) 3 ity of 00:00: (three) [place] 00 times Medical daily. Branch hydrOXYzine 2-0 Yes [id number] 25mg Take 1 Univers (VISTARIL) 5-21 capsule by ity of 25 mg 00:00: mouth 3 [place] capsule 00 (three) Medical times Branch daily as needed for Itching. mupirocin 2 2021-0 Yes [id number] Apply to Univers % ointment 5-21 area(s) 3 ity of 00:00: (three) [place] 00 times Medical daily. Branch hydrOXYzine 2021-0 Yes [id number] 25mg Take 1 Univers (VISTARIL) 5-21 capsule by ity of 25 mg 00:00: mouth 3 [place] capsule 00 (three) Medical times Branch daily as needed for Itching. mupirocin 2 2021-0 Yes [id number] Apply to Univers % ointment 5-21 area(s) 3 ity of 00:00: (three) [place] 00 times Medical daily. Branch hydrOXYzine 2021-0 Yes [id number] 25mg Take 1 Univers (VISTARIL) 5-21 capsule by ity of 25 mg 00:00: mouth 3 [place] capsule 00 (three) Medical times Branch daily as needed for Itching. mupirocin 2 2021-0 Yes [id number] Apply to Univers % ointment 5-21 area(s) 3 ity of 00:00: (three) [place] 00 times Medical daily. Branch hydrOXYzine 2021-0 Yes [id number] 25mg Take 1 Univers (VISTARIL) 5-21 capsule by ity of 25 mg 00:00: mouth 3 [place] capsule 00 (three) Medical times Branch daily as needed for Itching. mupirocin 2 2021-0 Yes [id number] Apply to Univers % ointment 5-21 area(s) 3 ity of 00:00: (three) [place] 00 times Medical daily. Branch hydrOXYzine 2021-0 2021- No [id number] 25mg Take 1 Univers (VISTARIL) 5-21 10-05 capsule by it y of 25 mg 00:00: 00:00 mouth 3 [place] capsule 00 :00 (three) Medical times Branch daily as needed for Itching. mupirocin 2 2021-0 2- No [id number] Apply to Univers % ointment 5-21 10-05 area(s) 3 ity of 00:00: 00:00 (three) [place] 00 :00 times Medical daily. Branch hydrOXYzine 2021-0 2- No [id number] 25mg Take 1 Univers (VISTARIL) 5-21 10-05 capsule by it y of 25 mg 00:00: 00:00 mouth 3 [place] capsule 00 :00 (three) Medical times Branch daily as needed for Itching. mupirocin 2 2021- No [id number] Apply to Univers % ointment -05 area(s) 3 ity of 00:00: 00:00 (three) [place] 00 :00 times Medical daily. Branch hydrOXYzine 2021- No [id number] 25mg Take 1 Univers (VISTARIL) -12-25 capsule by it y of 25 mg 00:00: 00:00 mouth 3 [place] capsule 00 :00 (three) Medical times Branch daily as needed for Itching. mupirocin 2 2021- No [id number] Apply to Univers % ointment -12-25 area(s) 3 ity of 00:00: 00:00 (three) [place] 00 :00 times Medical daily. Branch Ambien 10 Ambien No QD Ambien 10 MG MG 5-04 MG 00:00: 00 traMADol traMADol No 1{table QD traMADol HCl 50 MG HCl 50 MG 5-04 t_as_ne HCl 50 MG 00:00: eded} 00 Ambien 10 Ambien 10 No QD Ambien 10 MG MG 5-04 MG 00:00: 00 traMADol traMADol No 1{table QD traMADol HCl 50 MG HCl 50 MG 5-04 t_as_ne HCl 50 MG 00:00: eded} 00 Ambien 10 Ambien 10 No QD Ambien 10 MG MG 5-04 MG 00:00: 00 traMADol traMADol No 1{table QD traMADol HCl 50 MG HCl 50 MG 5-04 t_as_ne HCl 50 MG 00:00: eded} 00 Ambien 10 Ambien 10 No QD Ambien 10 MG MG 5-04 MG 00:00: 00 traMADol traMADol No 1{table QD traMADol HCl 50 MG HCl 50 MG 5-04 t_as_ne HCl 50 MG 00:00: eded} 00 divalproex Yes TAKE 1 Unive rs (DEPAKOTE) 5-02 TABLET BY ity of [address] 00:00: MOUTH [place] tablet 00 EVERY 8 MD HOURS [facility] divalproex 2022-0 Yes [id number] 125mg Take 1 Univers 125 mg EC 4-29 tablet by ity o f tablet 00:00: mouth [place] 00 every 8 Medical (eight) Branch hours. divalproex 2022-0 Yes [id number] 125mg Take 1 Univers 125 mg EC 4-29 tablet by ity o f tablet 00:00: mouth [place] 00 every 8 Medical (eight) Branch hours. divalproex 2022-0 Yes [id number] 125mg Take 1 Univers 125 mg EC 4-29 tablet by ity o f tablet 00:00: mouth [place] 00 every 8 Medical (eight) Branch hours. divalproex 2022-0 Yes [id number] 125mg Take 1 Univers 125 mg EC 4-29 tablet by ity o f tablet 00:00: mouth [place] 00 every 8 Medical (eight) Branch hours. divalproex 2022-0 Yes [id number] 125mg Take 1 Univers 125 mg EC 4-29 tablet by ity o f tablet 00:00: mouth [place] 00 every 8 Medical (eight) Branch hours. divalproex 2022-0 Yes [id number] 125mg Take 1 Univers 125 mg EC 4-29 tablet by ity o f tablet 00:00: mouth [place] 00 every 8 Medical (eight) Branch hours. divalproex 2022-0 Yes [id number] 125mg Take 1 Univers 125 mg EC 4-29 tablet by ity o f tablet 00:00: mouth [place] 00 every 8 Medical (eight) Branch hours. divalproex 2022-0 Yes [id number] 125mg Take 1 [facility] 125 mg EC 4-29 tablet by [facility] o f tablet 00:00: mouth [place] 00 every 8 [facility] (eight) [facility] hours. divalproex 2022-0 Yes [id number] 125mg Take 1 [facility] 125 mg EC 4-29 tablet by [facility] o f tablet 00:00: mouth [place] 00 every 8 [facility] (eight) Branch hours. divalproex 2022-0 Yes [id number] 125mg Take 1 [facility] 125 mg EC 4-29 tablet by [facility] o f tablet 00:00: mouth [place] 00 every 8 [facility] (eight) [facility] hours. divalproex 2022-0 Yes [id number] 125mg Take 1 [facility] 125 mg EC 4-29 tablet by [facility] o f tablet 00:00: mouth [place] 00 every 8 [facility] (eight) Branch hours. divalproex 2022-0 Yes [id number] 125mg Take 1 [facility] 125 mg EC 4-29 tablet by [facility] o f tablet 00:00: mouth [place] 00 every 8 [facility] (eight) [facility] hours. divalproex 2022-0 Yes [id number] 125mg Take 1 [facility] 125 mg EC 4-29 tablet by [facility] o f tablet 00:00: mouth [place] 00 every 8 [facility] (eight) Branch hours. divalproex 2022-0 Yes [id number] 125mg Take 1 [facility] 125 mg EC 4-29 tablet by [facility] o f tablet 00:00: mouth [place] 00 every 8 [facility] (eight) Branch hours. divalproex 2022-0 Yes [id number] 125mg Take 1 [facility] 125 mg EC 4-29 tablet by [facility] o f tablet 00:00: mouth [place] 00 every 8 [facility] (eight) Branch hours. divalproex 2022-0 Yes [id number] 125mg Take 1 [facility] 125 mg EC 4-29 tablet by [facility] o f tablet 00:00: mouth [place] 00 every 8 [facility] (eight) Branch hours. divalproex 2022-0 Yes [id number] 125mg Take 1 [facility] 125 mg EC 4-29 tablet by ity o f tablet 00:00: mouth [place] 00 every 8 Medical (eight) Branch hours. divalproex 2022-0 Yes [id number] 125mg Take 1 [facility] 125 mg EC 4-29 tablet by ity o f tablet 00:00: mouth [place] 00 every 8 Medical (eight) Branch hours. divalproex 2022-0 Yes [id number] 125mg Take 1 [facility] 125 mg EC 4-29 tablet by ity o f tablet 00:00: mouth [place] 00 every 8 Medical (eight) Branch hours. divalproex 2022-0 Yes [id number] 125mg Take 1 [facility] 125 mg EC 4-29 tablet by ity o f tablet 00:00: mouth [place] 00 every 8 Medical (eight) Branch hours. divalproex 2022-0 Yes [id number] 125mg Take 1 [facility] 125 mg EC 4-29 tablet by ity o f tablet 00:00: mouth [place] 00 every 8 Medical (eight) Branch hours. divalproex 2022-0 Yes [id number] 125mg Take 1 [facility] 125 mg EC 4-29 tablet by ity o f tablet 00:00: mouth [place] 00 every 8 Medical (eight) Branch hours. divalproex 2021-0 Yes [id number] 125mg Take 1 [facility] 125 mg EC 4-29 tablet by ity o f tablet 00:00: mouth [place] 00 every 8 Medical (eight) Branch hours. divalproex 2021-0 Yes [id number] 125mg Take 1 [facility] 125 mg EC 4-29 tablet by ity o f tablet 00:00: mouth [place] 00 every 8 Medical (eight) Branch hours. divalproex 2021-0 Yes [id number] 125mg Take 1 [facility] 125 mg EC 4-29 tablet by ity o f tablet 00:00: mouth [place] 00 every 8 Medical (eight) Branch hours. divalproex 2021-0 Yes [id number] 125mg Take 1 [facility] 125 mg EC 4-29 tablet by ity o f tablet 00:00: mouth [place] 00 every 8 Medical (eight) Branch hours. divalproex 2021-0 Yes [id number] 125mg Take 1 [facility] 125 mg EC 4-29 tablet by ity o f tablet 00:00: mouth [place] 00 every 8 Medical (eight) Branch hours. divalproex 2021-0 Yes [id number] 125mg Take 1 [facility] 125 mg EC 4-29 tablet by ity o f tablet 00:00: mouth [place] 00 every 8 Medical (eight) Branch hours. divalproex 2021-0 Yes [id number] 125mg Take 1 [facility] 125 mg EC 4-29 tablet by ity o f tablet 00:00: mouth [place] 00 every 8 Medical (eight) Branch hours. divalproex 2021-0 Yes [id number] 125mg Take 1 [facility] 125 mg EC 4-29 tablet by ity o f tablet 00:00: mouth [place] 00 every 8 Medical (eight) Branch hours. citalopram 2021-0 2021- No Reactive TAKE 1 [facility] (CeleXA) 20 4-13 10-05 depression TABLET(20 ity of mg tablet 00:00: 00:00 (situationa MG) BY [place] 00 :00 l) FRED MONTEJO DAILY [facility] traMADol traMADol 0 No 1{table traMADol HCl 50 MG HCl 50 MG 4-11 t_as_ne HCl 50 MG 00:00: eded} 00 traMADol traMADol No 1{table traMADol HCl 50 MG HCl 50 MG 4-11 t_as_ne HCl 50 MG 00:00: eded} traMADol traMADol No 1{table traMADol HCl 50 MG HCl 50 MG 4-11 t_as_ne HCl 50 MG 00:00: eded} 00 traMADol traMADol No 1{table traMADol HCl 50 MG HCl 50 MG 4-11 t_as_ne HCl 50 MG 00:00: eded} traMADol traMADol No 1{table traMADol HCl 50 MG HCl 50 MG 4-11 t_as_ne HCl 50 MG 00:00: eded} atorvastati 2021- No 20mg Take 20 mg [facility] n (LIPITOR) 330 -30 by mouth. it y of 20 mg 12:24: 00:00 [place] tablet 14 :00 MD [facility] lisinopril 2021- No 10mg Take 10 mg [facility] (PRINIVIL,Z 06-1928 by mouth ity of ESTRIL) 10 12:23: 00:00 every [place] mg tablet 14 :00 morning. MD [facility] pregabalin 2021- No Drug-induce 75mg Take 1 [facility] (LYRICA) 75 30 07-08 d capsule ity of mg capsule 00:00: 00:00 polyneuropa (75 mg) by [place] 00 :00 thy mouth 3 (three) [facility] a n day[facility] Ambien 10 Ambien No QD Ambien 10 MG MG 3-28 MG 00:00: 00 traMADol traMADol No 1{table traMADol HCl 50 MG HCl 50 MG 3-28 t_as_ne HCl 50 MG 00:00: eded} 00 Ambien 10 Ambien 10 No QD Ambien 10 MG MG 3-28 MG 00:00: 00 traMADol traMADol No 1{table traMADol HCl 50 MG HCl 50 MG 3-28 t_as_ne HCl 50 MG 00:00: eded} 00 Ambien 10 Ambien 10 No QD Ambien 10 MG MG 3-28 MG 00:00: 00 traMADol traMADol No 1{table traMADol HCl 50 MG HCl 50 MG 3-28 t_as_ne HCl 50 MG 00:00: eded} traMADol traMADol No 1{table traMADol HCl 50 MG HCl 50 MG 3-28 t_as_ne HCl 50 MG 00:00: eded} traMADol traMADol No 1{table traMADol HCl 50 MG HCl 50 MG 3-28 t_as_ne HCl 50 MG 00:00: eded} traMADol traMADol No 1{table traMADol HCl 50 MG HCl 50 MG 3-28 t_as_ne HCl 50 MG 00:00: eded} traMADol traMADol No 1{table traMADol HCl 50 MG HCl 50 MG 3-28 t_as_ne HCl 50 MG 00:00: eded} 00 zolpidem Yes 1 tablet [facility] (Ambien) 10 3-28 at bedtime Nadja kes mg tablet 00:00: as needed Med ical 00 for sleep Center zolpidem Yes 10mg Take 10 mg Uni vers (AMBIEN) 10 3-28 by mouth ity [place] mg [place] 00:00[place] 00 needed. MD [facility] Ambien 10 Ambien 10 No QD Ambien 10 MG MG 1-21 MG 00:00: 00 Pantoprazol Pantoprazol No 1{table QD Pantoprazo e Sodium 40 e Sodium 40 1-21 t} le Sodium MG MG 00:00: 40 MG 00 Ambien 10 Ambien 10 No QD Ambien 10 MG MG 1-21 MG 00:00: 00 Pantoprazol Pantoprazol 2021- No 1{table QD Pantoprazo e Sodium 40 e Sodium 40 1-21 t} le Sodium MG MG 00:00: 40 MG 00 Ambien 10 Ambien 10 No QD Ambien 10 MG MG 1-21 MG 00:00: 00 Pantoprazol Pantoprazol 2021- No 1{table QD Pantoprazo e Sodium 40 e Sodium 40 1-21 t} le Sodium MG MG 00:00: 40 MG 00 Ambien 10 Ambien No QD Ambien 10 MG MG 1-21 MG 00:00: 00 Pantoprazol Pantoprazol 2021- No 1{table QD Pantoprazo e Sodium 40 e Sodium 40 1-21 t} le Sodium MG MG 00:00: 40 MG 00 Phentermine Phentermine 2021- No 1{capsu QD Phentermin HCl 30 MG HCl 30 MG 04-12 le} e HCl 30 00:00: 00:00 MG 00 :00 Phentermine Phentermine 2021- No 1{capsu QD Phentermin HCl 30 MG HCl 30 MG 04-12 le} e HCl 30 00:00: 00:00 MG 00 :00 Phentermine Phentermine 2021- No 1{capsu QD Phentermin HCl 30 MG HCl 30 MG 04-12 le} e HCl 30 00:00: 00:00 MG 00 :00 Phentermine Phentermine 2021- No 1{capsu QD Phentermin HCl 30 MG HCl 30 MG 04-12 le} e HCl 30 00:00: 00:00 MG 00 :00 Ambien 10 Ambien 10 No QD Ambien 10 MG MG 1-11 MG 00:00: 00 pregabalin 2021- No Drug-induce TAKE 1 [facility] (LYRICA) 75 1-10 03-30 d CAPSULE BY i ty of mg capsule 00:00: 00:00 polyneuropa MOUTH [place] 00 :00 thy THREE MD TIMES [place] DAILY [facility] Phentermine Phentermine 2020-03- No 1{capsu QD Phentermin HCl 30 MG HCl 30 MG 05-15 le} e HCl 30 00:00: 00:00 MG 00 :00 Phentermine Phentermine 2020-03- No 1{capsu QD Phentermin HCl 30 MG HCl 30 MG 05-15 le} e HCl 30 00:00: 00:00 MG 00 :00 ergocalcife 2020-03- No Vitamin D [id number] Take 1 [facility] rol 05-07 03-04 deficiency, capsule ity of (Vitamin 00:00: 05:59 not (50,000 [place] D2) 50,000 00 :00 otherwise Units) by units specified mouth Anderso capsule every 7 n days for Cancer 12 doses. Center Take 1 capsule PO once a week. After 12 weeks, then take Vit D3 5000 IU (OTC) once daily traMADol traMADol 2020-03 No 1{table traMADol HCl 50 MG HCl 50 MG 2-14 t_as_ne HCl 50 MG 00:00: eded} 00 traMADol traMADol 2020-03 No 1{table traMADol HCl 50 MG HCl 50 MG 2-14 t_as_ne HCl 50 MG 00:00: eded} traMADol traMADol 2020-03 No 1{table traMADol HCl 50 MG HCl 50 MG 2-14 t_as_ne HCl 50 MG 00:00: eded} traMADol traMADol 2020-03 No 1{table traMADol HCl 50 MG HCl 50 MG 2-14 t_as_ne HCl 50 MG 00:00: eded} traMADol traMADol 2020-03 No 1{table traMADol HCl 50 MG HCl 50 MG 2-14 t_as_ne HCl 50 MG 00:00: eded} traMADol traMADol 2020-03 No 1{table traMADol HCl 50 MG HCl 50 MG 2-14 t_as_ne HCl 50 MG 00:00: eded} traMADol traMADol 2020-03 No 1{table traMADol HCl 50 MG HCl 50 MG 2-14 t_as_ne HCl 50 MG 00:00: eded} 00 traMADol traMADol 2020-03 No 1{table traMADol HCl 50 MG HCl 50 MG 2-14 t_as_ne HCl 50 MG 00:00: eded} 00 traMADol traMADol 2020-03 No 1{table traMADol HCl 50 MG HCl 50 MG 2-14 t_as_ne HCl 50 MG 00:00: eded} 00 traMADol traMADol 2020-03 No 1{table traMADol HCl 50 MG HCl 50 MG 2-14 t_as_ne HCl 50 MG 00:00: eded} 00 traMADol traMADol 2020-03 No 1{table traMADol HCl 50 MG HCl 50 MG 2-14 t_as_ne HCl 50 MG 00:00: eded} 00 traMADol traMADol 2020-03 No 1{table traMADol HCl 50 MG HCl 50 MG 2-14 t_as_ne HCl 50 MG 00:00: eded} 00 traMADol traMADol 2020-03 No 1{table traMADol HCl 50 MG HCl 50 MG 2-14 t_as_ne HCl 50 MG 00:00: eded} traMADol traMADol 2020-03 No 1{table traMADol HCl 50 MG HCl 50 MG 2-14 t_as_ne HCl 50 MG 00:00: eded} traMADol traMADol 2020-03 No 1{table traMADol HCl 50 MG HCl 50 MG 2-14 t_as_ne HCl 50 MG 00:00: eded} traMADol traMADol 2020-03 No 1{table traMADol HCl 50 MG HCl 50 MG 2-14 t_as_ne HCl 50 MG 00:00: eded} traMADol traMADol 2020-03 No 1{table traMADol HCl 50 MG HCl 50 MG 2-14 t_as_ne HCl 50 MG 00:00: eded} 00 traMADol traMADol 2020-03 No 1{table traMADol HCl 50 MG HCl 50 MG 2-14 t_as_ne HCl 50 MG 00:00: eded} 00 Ambien 10 Ambien 10 2020-03 No QD Ambien 10 MG MG 1-30 MG 00:00: 00 Ambien 10 Ambien 10 2020-03 No QD Ambien 10 MG MG 1-30 MG 00:00: 00 Ambien 10 Ambien 10 2020-03 No QD Ambien 10 MG MG 1-30 MG 00:00: 00 Ambien 10 Ambien 10 2020-03 No QD Ambien 10 MG MG 1-30 MG 00:00: 00 Ambien 10 Ambien 10 2020-03 No QD Ambien 10 MG MG 1-30 MG 00:00: 00 Ambien 10 Ambien 10 2020-03 No QD Ambien 10 MG MG 1-30 MG 00:00: 00 letrozole 2020-03- No Infiltratin TAKE 1 [facility] (FEMARA) 1-30 10-05 g duct TABLET(2.5 it y of 2.5 mg 00:00: 00:00 [place], MG[place] 00 :00 NOS of MOUTH MD upper-outer DAILY Anderso quadrant of n breast Cancer <Female; Center Left> citalopram 2020-03- No Reactive 20mg Take 1 [facility] (CeleXA) 20 1-15 04-13 depression tablet (20 ity of mg tablet 00:00: 00:00 (situationa mg) by [place] 00 :00 l) mouth daily. [facility] pregabalin 2020-03- No Drug-induce TAKE 1 [facility] (LYRICA) 75 1-10 01-10 d CAPSULE BY joe ty of mg capsule 00:00: 00:00 polyneuropa MOUTH [place] 00 :00 thy THREE MD TIMES Marry DAILY [facility] Ambien 5 MG Ambien 5 MG 2020-03 No QD Ambien 5 1-04 MG 00:00: 00 Ambien 5 MG Ambien 5 MG 2020-03 No QD Ambien 5 1-04 MG 00:00: 00 Ambien 5 MG Ambien 5 MG 2020-03 No QD Ambien 5 1-04 MG 00:00: 00 Ambien 5 MG Ambien 5 MG 2020-03 No QD Ambien 5 1-04 MG 00:00: 00 HYDROcodone HYDROcodone 2020-03- No 1{table HYDROcodon -Acetaminop -Acetaminop 0-15 02- t_as_ne e-Acetamin hen 7.5-325 hen 7.5-325 00:00: 00:00 eded} ophen MG MG 00 :00 7.5-325 MG HYDROcodone HYDROcodone 2020-03- No 1{table HYDROcodon -Acetaminop -Acetaminop 0-15 02- t_as_ne e-Acetamin hen 7.5-325 hen 7.5-325 00:00: 00:00 eded} ophen MG MG 00 :00 7.5-325 MG HYDROcodone HYDROcodone 2020-03- No 1{table HYDROcodon -Acetaminop -Acetaminop 0-15 02- t_as_ne e-Acetamin hen 7.5-325 hen 7.5-325 00:00: 00:00 eded} ophen MG MG 00 :00 7.5-325 MG HYDROcodone HYDROcodone 2020-03- No 1{table HYDROcodon -Acetaminop -Acetaminop 0-15 02- t_as_ne e-Acetamin hen 7.5-325 hen 7.5-325 00:00: 00:00 eded} ophen MG MG 00 :00 7.5-325 MG HYDROcodone HYDROcodone 2020-03- No 1{table HYDROcodon -Acetaminop -Acetaminop 02-14 t_as_ne e-Acetamin hen 7.5-325 hen 7.5-325 00:00: 00:00 eded} ophen MG MG 00 :00 7.5-325 MG HYDROcodone HYDROcodone 2020-03- No 1{table HYDROcodon -Acetaminop -Acetaminop 02-14 t_as_ne e-Acetamin hen 7.5-325 hen 7.5-325 00:00: 00:00 eded} ophen MG MG 00 :00 7.5-325 MG traMADol traMADol 2020-03- No 1{table traMADol HCl 50 MG HCl 50 MG 014 t_as_ne HCl 50 MG 00:00: 00:00 eded} 00 :00 traMADol traMADol 2020-03- No 1{table traMADol HCl 50 MG HCl 50 MG 014 t_as_ne HCl 50 MG 00:00: 00:00 eded} 00 :00 Bupivicaine Bupivicaine 2020-03 No 2.5mg [place]-05 [facility] 00:00: - [facility] 00 [facility] Kenalog Kenalog 2020-03 No 40mg Common (Triamcinol (Triamcinol 0-05 S pirit one) one) 00:00: - [facility]I 00 [facility] Bupivicaine Bupivicaine 2020-03 No 2.5mg [place] 0-05 Spirit 00:00: - [facility] 00 [facility] Kenalog Kenalog 2020-03 No 40mg Common (Triamcinol (Triamcinol 0-05 S pirit one) one) 00:00: - [facility]I 00 [facility] Bupivicaine Bupivicaine 2020-03 No 2.5mg [place] 0-05 Spirit 00:00: - [facility]I 00 [facility] Kenalog Kenalog 2020-03 No 40mg Common (Triamcinol (Triamcinol 0-05 S pirit one) one) 00:00: - [facility]I 00 [facility] Bupivicaine Bupivicaine 2020-03 No 2.5mg [facility] [place] 0-05 Spirit 00:00: - [facility]I 00 [facility] Kenalog Kenalog 2020-03 No 40mg Common (Triamcinol (Triamcinol 0-05 S pirit one) one) 00:00: - [facility]I 00 [facility] Bupivicaine Bupivicaine 2020-03 No 2.5mg [place] 0-05 Spirit 00:00: - [facility] 00 [facility] Kenalog Kenalog 2020-03 No 40mg Common (Triamcinol (Triamcinol 0-05 S pirit one) one) 00:00: - [facility]I 00 [facility] Bupivicaine Bupivicaine 2020-03 No 2.5mg [place] 0-05 Spirit 00:00: - [facility] 00 [facility] Kenalog Kenalog 2020-03 No 40mg Common (Triamcinol (Triamcinol 0-05 S pirit one) one) 00:00: - CHI 00 [facility] Bupivicaine Bupivicaine 2020-03 No 2.5mg [facility] [place] 0-05 Spirit 00:00: - [facility] 00 [facility] Kenalog Kenalog 2020-03 No 40mg Common (Triamcinol (Triamcinol 0-05 S pirit one) one) 00:00: - CHI 00 [facility] Bupivicaine Bupivicaine 2020-03 No 2.5mg [place] 0-05 Spirit 00:00: - [facility]I 00 [facility] Kenalog Kenalog 2020-03 No 40mg Common (Triamcinol (Triamcinol 0-05 S pirit one) one) 00:00: - CHI 00 [facility] Bupivicaine Bupivicaine 2020-03 No 2.5mg [place] 0-05 Spirit 00:00: - [facility] 00 [facility] Kenalog Kenalog 2020-03 No 40mg Common (Triamcinol (Triamcinol 0-05 S pirit one) one) 00:00: - CHI 00 [facility] Bupivicaine Bupivicaine 2020-03 No 2.5mg [facility] [place] 0-05 Spirit 00:00: - [facility] 00 [facility] Eric Mulleralog 2020-03 No 40mg Common (Triamcinol (Triamcinol 0-05 S pirit one) one) 00:00: - [facility]I 00 [facility] Bupivicaine Bupivicaine 2020-03 No 2.5mg [facility] [place] 0-05 Spirit 00:00: - [facility] 00 [facility] Eric Kenalog 2020-03 No 40mg Common (Triamcinol (Triamcinol 0-05 S pirit one) one) 00:00: - CHI 00 [facility] Bupivicaine Bupivicaine 2020-03 No 2.5mg [facility] [place] 0-05 Spirit 00:00: - [facility]I 00 [facility] Eric Mulleralog 2020-03 No 40mg Common (Triamcinol (Triamcinol 0-05 S pirit one) one) 00:00: - CHI 00 [facility] Bupivicaine Bupivicaine 2020-03 No 2.5mg [facility] [place] 0-05 Spirit 00:00: - [facility] 00 [facility] Eric Mulleralog 2020-03 No 40mg Common (Triamcinol (Triamcinol 0-05 S pirit one) one) 00:00: - CHI 00 [facility] Bupivicaine Bupivicaine 2020-03 No 2.5mg [facility] [place] 0-05 Spirit 00:00: - [facility]I 00 [facility] Eric Kenalog 2020-03 No 40mg Common (Triamcinol (Triamcinol 0-05 S pirit one) one) 00:00: - [facility]I 00 [facility] Bupivicaine Bupivicaine 2020-03 No 2.5mg [facility] [place] 0-05 Spirit 00:00: - [facility] 00 [facility] Eric Kenalog 2020-03 No 40mg Common (Triamcinol (Triamcinol 0-05 S pirit one) one) 00:00: - CHI 00 [facility] Bupivicaine Bupivicaine 2020-03 No 2.5mg [facility] [place] 0-05 Spirit 00:00: - [facility]I 00 [facility] Kenalog Kenalog 2020-03 No 40mg Common (Triamcinol (Triamcinol 0-05 S pirit one) one) 00:00: - CHI 00 [facility] Bupivicaine Bupivicaine 2020-03 No 2.5mg [facility] [place] 0-05 Spirit 00:00: - [facility]I 00 [facility] Kenalog Kenalog 2020-03 No 40mg Common (Triamcinol (Triamcinol 0-05 S pirit one) one) 00:00: - CHI 00 [facility] Bupivicaine Bupivicaine 2020-03 No 2.5mg [facility] [place] 0-05 Spirit 00:00: - [facility]I 00 [facility] Kenalog Kenalog 2020-03 No 40mg Common (Triamcinol (Triamcinol 0-05 S pirit one) one) 00:00: - CHI 00 [facility] Bupivicaine Bupivicaine 2020-03 No 2.5mg [facility] [place] 0-05 Spirit 00:00: - [facility]I 00 [facility] Kenalog Kenalog 2020-03 No 40mg Common (Triamcinol (Triamcinol 0-05 S pirit one) one) 00:00: - CHI 00 [facility] Bupivicaine Bupivicaine 2020-03 No 2.5mg [place] 0-05 Spirit 00:00: - [facility]I 00 [facility] Kenalog Kenalog 2020-03 No 40mg Common (Triamcinol (Triamcinol 0-05 S pirit one) one) 00:00: - CHI 00 [facility] Bupivicaine Bupivicaine 2020-03 No 2.5mg [facility] [place] 0-05 Spirit 00:00: - CHI 00 [facility] Kenalog Kenalog 2020-03 No 40mg Common (Triamcinol (Triamcinol 0-05 S pirit one) one) 00:00: - CHI 00 [facility] Bupivicaine Bupivicaine 2020-03 No [place] 0-05 Spirit 00:00: - [facility] 00 [facility] Kenalog Kenalog 2020-03 No 40mg Common (Triamcinol (Triamcinol 0-05 S pirit one) one) 00:00: - CHI 00 [facility] Bupivicaine Bupivicaine 2020-03 No [place] 0-05 Spirit 00:00: - [facility]I 00 [facility] Kenalog Kenalog 2020-03 No 40mg Common (Triamcinol (Triamcinol 0-05 S pirit one) one) 00:00: - CHI 00 [facility] Bupivicaine Bupivicaine 2020-03 No [place] 0-05 Spirit 00:00: - [facility]I 00 [facility] Kenalog Kenalog 2020-03 No 40mg Common (Triamcinol (Triamcinol 0-05 S pirit one) one) 00:00: - CHI 00 [facility] Bupivicaine Bupivicaine 2020-03 No 2.5mg [facility] [place] 0-05 Spirit 00:00: - [facility]I 00 [facility] Kenalog Kenalog 2020-03 No 40mg Common (Triamcinol (Triamcinol 0-05 S pirit one) one) 00:00: - CHI 00 [facility] Bupivicaine Bupivicaine 2020-03 No 2.5mg [facility] [place] 0-05 Spirit 00:00: - CHI 00 [facility] Kenalog Kenalog 2020-03 No 40mg Common (Triamcinol (Triamcinol 0-05 S pirit one) one) 00:00: - CHI 00 [facility] Bupivicaine Bupivicaine 2020-03 No 2.5mg [facility] [place] 0-05 Spirit 00:00: - [facility] 00 [facility] Kenalog Kenalog 2020-03 No 40mg Common (Triamcinol (Triamcinol 0-05 S pirit one) one) 00:00: - CHI 00 [facility] Bupivicaine Bupivicaine 2020-03 No 2.5mg [facility] [place] 0-05 [facility] 00:00: - [facility] 00 [facility] Kenalog Kenalog 2020-03 No 40mg Common (Triamcinol (Triamcinol 0-05 S pirit one) one) 00:00: - [facility] 00 [facility] Bupivicaine Bupivicaine 2020-03 No 2.5mg [facility] [place] 0-05 Spirit 00:00: - [facility] 00 [facility] Eric Reyes 2020-03 No 40mg Common (Triamcinol (Triamcinol 0-05 S pirit one) one) 00:00: - [facility]I 00 [facility] Bupivicaine Bupivicaine 2020-03 No 2.5mg [facility] [place] 0-05 [facility] 00:00: - [facility] 00 [facility] Eric Mulleralog 2020-03 No 40mg Common (Triamcinol (Triamcinol 0-05 S pirit one) one) 00:00: - [facility]I 00 [facility] Bupivicaine Bupivicaine 2020-03 No 2.5mg [facility] [place] 0-05 [facility] 00:00: - [facility] Eric Mulleralog 2020-03 No 40mg Common (Triamcinol (Triamcinol 0-05 S pirit one) one) 00:00: - [facility] 00 [facility] Bupivicaine Bupivicaine 2020-03 No 2.5mg [place] 0-05 [facility] 00:00: - [facility] Eric Reyes 2020-03 No 40mg Common (Triamcinol (Triamcinol 0-05 S pirit one) one) 00:00: - [facility] traMADol traMADol 2020- No traMADol HCl 50 MG HCl 50 MG 11-29 HCl 50 MG 00:00: 00:00 00 :00 traMADol traMADol 2020- No traMADol HCl 50 MG HCl 50 MG 11-29 HCl 50 MG 00:00: 00:00 00 :00 traMADol traMADol 2020- No traMADol HCl 50 MG HCl 50 MG 11-29 HCl 50 MG 00:00: 00:00 00 :00 traMADol traMADol 2020-2020- No traMADol HCl 50 MG HCl 50 MG 11-29 HCl 50 MG 00:00: 00:00 00 :00 traMADol traMADol 2020- No traMADol HCl 50 MG HCl 50 MG 11-2909 HCl 50 MG 00:00: 00:00 00 :00 guaiFENesin guaiFENesin 2021-0 No 10{ml_a guaiFENesi -Codeine -Codeine 6-02 s_neede n-Codeine 100-10 100-10 00:00: d} 100-10 MG/5ML MG/5ML 00 MG/5ML guaiFENesin guaiFENesin 2021-0 No 10{ml_a guaiFENesi -Codeine -Codeine 6-02 s_neede n-Codeine 100-10 100-10 00:00: d} 100-10 MG/5ML MG/5ML 00 MG/5ML guaiFENesin guaiFENesin 2021-0 No 10{ml_a guaiFENesi -Codeine -Codeine 6-02 s_neede n-Codeine 100-10 100-10 00:00: d} 100-10 MG/5ML MG/5ML 00 MG/5ML guaiFENesin guaiFENesin 2021-0 No 10{ml_a guaiFENesi -Codeine -Codeine 6-02 s_neede n-Codeine 100-10 100-10 00:00: d} 100-10 MG/5ML MG/5ML 00 MG/5ML guaiFENesin guaiFENesin 2021-0 No 10{ml_a guaiFENesi -Codeine -Codeine 6-02 s_neede n-Codeine 100-10 100-10 00:00: d} 100-10 MG/5ML MG/5ML 00 MG/5ML guaiFENesin guaiFENesin 2021-0 No 10{ml_a guaiFENesi -Codeine -Codeine 6-02 s_neede n-Codeine 100-10 100-10 00:00: d} 100-10 MG/5ML MG/5ML 00 MG/5ML guaiFENesin guaiFENesin 2021-0 No 10{ml_a guaiFENesi -Codeine -Codeine 6-02 s_neede n-Codeine 100-10 100-10 00:00: d} 100-10 MG/5ML MG/5ML 00 MG/5ML Hyalgan 20 Hyalgan 20 2021-0 No 20mg C ommon mg mg 07-31 Spirit 00:00: - [facility] Hyalgan 20 Hyalgan 20 2020-0 No 20mg C ommon mg mg 07-31 Spirit 00:00: - [facility] Hyalgan 20 Hyalgan 20 2020-0 No 20mg C ommon mg mg 07-31 Spirit 00:00: - [facility] Hyalgan 20 Hyalgan 20 2020-0 No 20mg C ommon mg mg 07-31 Spirit 00:00: - [facility] Hyalgan 20 Hyalgan 20 2020-0 No 20mg C ommon mg mg 07-31 Spirit 00:00: - [facility] Hyalgan 20 Hyalgan 20 2020-0 No 20mg C ommon mg mg 07-31 Spirit 00:00: - [facility] Hyalgan 20 Hyalgan 20 2020-0 No 20mg C ommon mg mg 07-31 Spirit 00:00: - [facility] Hyalgan 20 Hyalgan 20 2020-0 No 20mg C ommon mg mg 07-31 Spirit 00:00: - [facility] Hyalgan 20 Hyalgan 20 2020-0 No 20mg C ommon mg mg 07-31 Spirit 00:00: - [facility] Hyalgan 20 Hyalgan 20 2020-0 No 20mg C ommon mg mg 07-31 Spirit 00:00: - [facility] Hyalgan 20 Hyalgan 20 2020-0 No 20mg C ommon mg mg 07-31 Spirit 00:00: - [facility] Hyalgan 20 Hyalgan 20 2020-0 No 20mg C ommon mg mg 07-31 Spirit 00:00: - [facility] Hyalgan 20 Hyalgan 20 2020-0 No 20mg C ommon mg mg 07-31 Spirit 00:00: - [facility] Hyalgan 20 Hyalgan 20 1-0 No 20mg C ommon mg mg 07-31 Spirit 00:00: - [facility] Hyalgan 20 Hyalgan 20 2020-0 No 20mg C [facility] mg mg 07-31 [facility] 00:00: - [facility] [place] 20 [place] 20 2020-0 No 20mg C [facility] mg mg 07-31 [facility] 00:00: - [facility] [place] 20 [place] 20 2020-0 No 20mg C [facility] mg mg 07-31 [facility] 00:00: - [facility] [place] 20 [place] 20 1-0 No 20mg C [facility] mg mg 07-31 [facility] 00:00: - [facility] [place] 20 [place] 20 2020-0 No 20mg C [facility] mg mg 07-31 [facility] 00:00: - [facility] [place] 20 [place] 20 2020-0 No 20mg C [facility] mg mg 07-31 [facility] 00:00: - [facility] [place] 20 [place] 20 2020-0 No 20mg C [facility] mg mg 07-31 [facility] 00:00: - [facility] [place] 20 [place] 20 2020-0 No 20mg C [facility] mg mg 07-31 [facility] 00:00: - [facility] [place] 20 [place] 20 2020-0 No 20mg C [facility] mg mg 07-31 [facility] 00:00: - [facility] [place] 20 [place] 20 2020-0 No 20mg C [facility] mg mg 07-31 [facility] 00:00: - [facility] [place] 20 [place] 20 2020-0 No 20mg C [facility] mg mg 07-31 [facility] 00:00: - [facility] [place] 20 [place] 20 2020-0 No 20mg C [facility] mg mg 07-31 [facility] 00:00: - [facility] [place] 20 [place] 20 1-0 No 20mg C [facility] mg mg 07-31 [facility] 00:00: - [facility] [place] 20 [place] 20 1-0 No 20mg C [facility] mg mg 07-31 [facility] 00[facility]00: - [facility] [place] 20 Hyalgan 20 1-0 No 20mg C ommon mg mg 07-31 Spirit 00:00: - [facility] Hyalgan 20 Hyalgan 20 1-0 No 20mg C ommon mg mg 07-31 Spirit 00:00: - [facility] Hyalgan 20 Hyalgan 20 2020-0 No 20mg C ommon mg mg 07-31 Spirit 00:00: - [facility] Hyalgan 20 Hyalgan 20 2020-0 No 20mg C ommon mg mg 07-31 Spirit 00:00: - [facility] Hyalgan 20 Hyalgan 20 2020-0 No 20mg C ommon mg mg 07-24 Spirit 00:00: - [facility] Hyalgan 20 Hyalgan 20 2020-0 No 20mg C ommon mg mg 07-24 Spirit 00:00: - [facility] Hyalgan 20 Hyalgan 20 2020-0 No 20mg C ommon mg mg 07-24 Spirit 00:00: - [facility] Hyalgan 20 Hyalgan 20 2020-0 No 20mg C ommon mg mg 07-24 Spirit 00:00: - [facility] Hyalgan 20 Hyalgan 20 2020-0 No 20mg C ommon mg mg 07-24 Spirit 00:00: - [facility] Hyalgan 20 Hyalgan 20 2020-0 No 20mg C ommon mg mg 07-24 Spirit 00:00: - [facility] Hyalgan 20 Hyalgan 20 2020-0 No 20mg C ommon mg mg 07-24 Spirit 00:00: - [facility] Hyalgan 20 Hyalgan 20 2020-0 No 20mg C ommon mg mg 07-24 Spirit 00:00: - [facility] Hyalgan 20 Hyalgan 20 2020-0 No 20mg C ommon mg mg 07-24 Spirit 00:00: - [facility] Hyalgan 20 Hyalgan 20 1-0 No 20mg C ommon mg mg 07-24 Spirit 00:00: - [facility] Hyalgan 20 Hyalgan 20 1-0 No 20mg C ommon mg mg 07-24 Spirit 00:00: - [facility] Hyalgan 20 Hyalgan 20 1-0 No 20mg C ommon mg mg 07-24 Spirit 00:00: - [facility] Hyalgan 20 Hyalgan 20 2020-0 No 20mg C ommon mg mg 07-24 Spirit 00:00: - [facility] Hyalgan 20 Hyalgan 20 2020-0 No 20mg C ommon mg mg 07-24 Spirit 00:00: - [facility] Hyalgan 20 Hyalgan 20 2020-0 No 20mg C ommon mg mg 07-24 Spirit 00:00: - [facility] Hyalgan 20 Hyalgan 20 2020-0 No 20mg C ommon mg mg 07-24 Spirit 00:00: - [facility] Hyalgan 20 Hyalgan 20 2020-0 No 20mg C ommon mg mg 07-24 Spirit 00:00: - [facility] Hyalgan 20 Hyalgan 20 2020-0 No 20mg C ommon mg mg 07-24 Spirit 00:00: - [facility] Hyalgan 20 Hyalgan 20 2020-0 No 20mg C ommon mg mg 07-24 Spirit 00:00: - [facility] Hyalgan 20 Hyalgan 20 2020-0 No 20mg C ommon mg mg 07-24 Spirit 00:00: - [facility] Hyalgan 20 Hyalgan 20 2020-0 No 20mg C ommon mg mg 07-24 Spirit 00:00: - [facility] Hyalgan 20 Hyalgan 20 2020-0 No 20mg C ommon mg mg 07-24 Spirit 00:00: - [facility] Hyalgan 20 Hyalgan 20 2020-0 No 20mg C ommon mg mg 07-24 Spirit 00:00: - [facility] Hyalgan 20 Hyalgan 20 2020-0 No 20mg C ommon mg mg 07-24 Spirit 00:00: - [facility] Hyalgan 20 Hyalgan 20 2020-0 No 20mg C ommon mg mg 07-24 Spirit 00:00: - [facility] Hyalgan 20 Hyalgan 20 2020-0 No 20mg C ommon mg mg 07-24 Spirit 00:00: - [facility] Hyalgan 20 Hyalgan 20 2020-0 No 20mg C ommon mg mg 07-24 Spirit 00:00: - [facility] Hyalgan 20 Hyalgan 20 2020-0 No 20mg C ommon mg mg 07-24 Spirit 00:00: - [facility] Hyalgan 20 Hyalgan 20 2020-0 No 20mg C ommon mg mg 07-24 Spirit 00:00: - [facility] Hyalgan 20 Hyalgan 20 2020-0 No 20mg C ommon mg mg 07-24 Spirit 00:00: - [facility] Hyalgan 20 Hyalgan 20 2020-0 No 20mg C ommon mg mg 07-24 Spirit 00:00: - [facility] 00 [facility] Hyalgan 20 Hyalgan 20 2020-0 No 20mg C ommon mg mg 07-24 Spirit 00:00: - [facility] Hyalgan 20 Hyalgan 20 2020-0 No 20mg C ommon mg mg 07-17 Spirit 00:00: - [facility] Bupivicaine Bupivicaine 2020-0 No 2.5mg [place] - Spirit 00:00: - [facility] Kenalog Kenalog 2020-0 No 40mg Common (Triamcinol (Triamcinol -27 S pirit one) one) 00:00: - [facility] 00 [facility] Hyalgan 20 Hyalgan 20 2020-0 No 20mg C ommon mg mg 07-17 Spirit 00:00: - [facility] Bupivicaine Bupivicaine 2020-0 No 2.5mg Common [place] - Spirit 00:00: - [facility] Kenalog Kenalog 2020-0 No 40mg Common (Triamcinol (Triamcinol 4-27 S pirit one) one) 00:00: - [facility] Hyalgan 20 Hyalgan 20 2020-0 No 20mg C ommon mg mg 07-17 Spirit 00:00: - [facility] Bupivicaine Bupivicaine 2020-0 No 2.5mg Common [place] 4-27 Spirit 00:00: - [facility] Kenalog Kenalog 2020-0 No 40mg Common (Triamcinol (Triamcinol 4-27 S pirit one) one) 00:00: - [facility] 00 [facility] Hyalgan 20 Hyalgan 20 2020-0 No 20mg C ommon mg mg 4-27 Spirit 00:00: - [facility] 00 [facility] Bupivicaine Bupivicaine 2020-0 No 2.5mg Common [place] 4-27 Spirit 00:00: - [facility] 00 [facility] Kenalog Kenalog 2020-0 No 40mg Common (Triamcinol (Triamcinol 4-27 S pirit one) one) 00:00: - [facility] 00 [facility] Hyalgan 20 Hyalgan 20 2020-0 No 20mg C ommon mg mg 4-27 Spirit 00:00: - [facility] 00 [facility] Bupivicaine Bupivicaine 2020-0 No 2.5mg Common [place] 4-27 Spirit 00:00: - [facility] 00 [facility] Kenalog Kenalog 2020-0 No 40mg Common (Triamcinol (Triamcinol 4-27 S pirit one) one) 00:00: - [facility] 00 [facility] Hyalgan 20 Hyalgan 20 2020-0 No 20mg C ommon mg mg -27 Spirit 00:00: - [facility] 00 [facility] Bupivicaine Bupivicaine 2020-0 No 2.5mg Common [place] 4-27 Spirit 00:00: - [facility] 00 [facility] Kenalog Kenalog 2020-0 No 40mg Common (Triamcinol (Triamcinol 4-27 S pirit one) one) 00:00: - [facility] 00 [facility] Hyalgan 20 Hyalgan 20 2020-0 No 20mg C ommon mg mg -27 Spirit 00:00: - [facility] 00 [facility] Bupivicaine Bupivicaine 2020-0 No 2.5mg Common [place] 4-27 Spirit 00:00: - [facility] 00 [facility] Kenalog Kenalog 2020-0 No 40mg Common (Triamcinol (Triamcinol 4-27 S pirit one) one) 00:00: - [facility] 00 [facility] Hyalgan 20 Hyalgan 20 2020-0 No 20mg C ommon mg mg 4-27 Spirit 00:00: - [facility] 00 [facility] Bupivicaine Bupivicaine 2020-0 No 2.5mg Common [place] 4-27 Spirit 00:00: - [facility] 00 [facility] Kenalog Kenalog 2020-0 No 40mg Common (Triamcinol (Triamcinol 4-27 S pirit one) one) 00:00: - [facility] 00 [facility] Hyalgan 20 Hyalgan 20 2020-0 No 20mg C ommon mg mg - Spirit 00:00: - [facility] 00 [facility] Bupivicaine Bupivicaine 2020-0 No 2.5mg Common [place] 4-27 Spirit 00:00: - [facility] 00 [facility] Kenalog Kenalog 2020-0 No 40mg Common (Triamcinol (Triamcinol 4-27 S pirit one) one) 00:00: - [facility] 00 [facility] Hyalgan 20 Hyalgan 20 2020-0 No 20mg C ommon mg mg - Spirit 00:00: - [facility] 00 [facility] Bupivicaine Bupivicaine 2020-0 No 2.5mg Common [place] - [facility] 00:00: - [facility] 00 [facility] Kenalog Kenalog 2020-0 No 40mg Common (Triamcinol (Triamcinol 4-27 S pirit one) one) 00:00: - [facility] 00 [facility] Hyalgan 20 Hyalgan 20 2020-0 No 20mg C ommon mg mg - Spirit 00:00: - [facility] 00 [facility] Bupivicaine Bupivicaine 2020-0 No 2.5mg Common [place] -27 [facility] 00:00: - [facility] 00 [facility] Kenalog Kenalog 2020-0 No 40mg Common (Triamcinol (Triamcinol 4-27 S pirit one) one) 00:00: - [facility] 00 [facility] Hyalgan 20 Hyalgan 20 2020-0 No 20mg C ommon mg mg - Spirit 00:00: - [facility] 00 [facility] Bupivicaine Bupivicaine 2020-0 No 2.5mg Common [place] 4-27 [facility] 00:00: - [facility] 00 [facility] Kenalog Kenalog 2020-0 No 40mg Common (Triamcinol (Triamcinol 4-27 S pirit one) one) 00:00: - [facility] 00 [facility] Hyalgan 20 Hyalgan 20 2020-0 No 20mg C ommon mg mg -27 Spirit 00:00: - [facility] 00 [facility] Bupivicaine Bupivicaine 2020-0 No 2.5mg Common [place] 4-27 [facility] 00:00: - [facility] 00 [facility] Kenalog Kenalog 2020-0 No 40mg Common (Triamcinol (Triamcinol 4-27 S pirit one) one) 00:00: - [facility] 00 [facility] Hyalgan 20 Hyalgan 20 2020-0 No 20mg C ommon mg mg 07-17 Spirit 00:00: - [facility] 00 [facility] Bupivicaine Bupivicaine 2020-0 No 2.5mg Common [place] - [facility] 00:00: - [facility] 00 [facility] Kenalog Kenalog 0 No 40mg Common (Triamcinol (Triamcinol 4-27 S pirit one) one) 00:00: - [facility] 00 [facility] Hyalgan 20 Hyalgan 20 2020-0 No 20mg C ommon mg mg - Spirit 00:00: - [facility] 00 [facility] Bupivicaine Bupivicaine 2020-0 No 2.5mg Common [place] - [facility] 00:00: - [facility] 00 [facility] Kenalog Kenalog 2020-0 No 40mg Common (Triamcinol (Triamcinol 4-27 S pirit one) one) 00:00: - [facility] 00 [facility] Hyalgan 20 Hyalgan 20 2020-0 No 20mg C ommon mg mg - Spirit 00:00: - [facility] 00 [facility] Bupivicaine Bupivicaine 2020-0 No 2.5mg Common [place] 4-27 [facility] 00:00: - [facility] 00 [facility] Kenalog Kenalog 2020-0 No 40mg Common (Triamcinol (Triamcinol 4-27 S pirit one) one) 00:00: - [facility] 00 [facility] Hyalgan 20 Hyalgan 20 2020-0 No 20mg C ommon mg mg 4-27 Spirit 00:00: - [facility] 00 [facility] Bupivicaine Bupivicaine 2020-0 No 2.5mg Common [place] 4-27 [facility] 00:00: - [facility] 00 [facility] Kenalog Kenalog 2020-0 No 40mg Common (Triamcinol (Triamcinol 4-27 S pirit one) one) 00:00: - [facility] 00 [facility] Hyalgan 20 Hyalgan 20 2020-0 No 20mg C ommon mg mg 4-27 [facility] 00:00: - [facility] 00 [facility] Bupivicaine Bupivicaine 2020-0 No 2.5mg Common [place] 4-27 [facility] 00:00: - [facility] 00 [facility] Kenalog Kenalog 2020-0 No 40mg Common (Triamcinol (Triamcinol 4-27 S pirit one) one) 00:00: - [facility] 00 [facility] Hyalgan 20 Hyalgan 20 2020-0 No 20mg C ommon mg mg - Spirit 00:00: - [facility] 00 [facility] Bupivicaine Bupivicaine 2020-0 No 2.5mg Common [place] 4-27 [facility] 00:00: - [facility] 00 [facility] Kenalog Kenalog 2020-0 No 40mg Common (Triamcinol (Triamcinol 4-27 S pirit one) one) 00:00: - [facility] 00 [facility] Hyalgan 20 Hyalgan 20 2020-0 No 20mg C ommon mg mg -27 Spirit 00:00: - [facility] 00 [facility] Bupivicaine Bupivicaine 2020-0 No 2.5mg Common [place] 4-27 [facility] 00:00: - [facility] 00 [facility] Kenalog Kenalog 2020-0 No 40mg Common (Triamcinol (Triamcinol 4-27 S pirit one) one) 00:00: - [facility] 00 [facility] Hyalgan 20 Hyalgan 20 2020-0 No 20mg C ommon mg mg 4-27 [facility] 00:00: - [facility] 00 [facility] Bupivicaine Bupivicaine 2020-0 No 2.5mg Common [place] 4-27 [facility] 00:00: - [facility] 00 [facility] Kenalog Kenalog 2020-0 No 40mg Common (Triamcinol (Triamcinol 4-27 S pirit one) one) 00:00: - [facility] 00 [facility] Hyalgan 20 Hyalgan 20 2020-0 No 20mg C ommon mg mg 4-27 [facility] 00:00: - [facility] 00 [facility] Bupivicaine Bupivicaine 2020-0 No Common [place] 4-27 [facility] 00:00: - [facility] 00 [facility] Kenalog Kenalog 2020-0 No 40mg Common (Triamcinol (Triamcinol 4-27 S pirit one) one) 00:00: - [facility] 00 [facility] Hyalgan 20 Hyalgan 20 2020-0 No 20mg C ommon mg mg - Spirit 00:00: - [facility] 00 [facility] Bupivicaine Bupivicaine 2020-0 No Common [place] 4-27 [facility] 00:00: - [facility] 00 [facility] Kenalog Kenalog 2020-0 No 40mg Common (Triamcinol (Triamcinol 4-27 S pirit one) one) 00:00: - [facility] 00 [facility] Hyalgan 20 Hyalgan 20 2020-0 No 20mg C ommon mg mg - Spirit 00:00: - [facility] 00 [facility] Bupivicaine Bupivicaine 2020-0 No Common [place] 4-27 [facility] 00:00: - [facility] 00 [facility] Kenalog Kenalog 2020-0 No 40mg Common (Triamcinol (Triamcinol 4-27 S pirit one) one) 00:00: - [facility] 00 [facility] Hyalgan 20 Hyalgan 20 2020-0 No 20mg C ommon mg mg 4-27 [facility] 00:00: - [facility] 00 [facility] Bupivicaine Bupivicaine 2020-0 No 2.5mg Common [place] 4-27 [facility] 00:00: - [facility] 00 [facility] Kenalog Kenalog 2020-0 No 40mg Common (Triamcinol (Triamcinol 4-27 S pirit one) one) 00:00: - [facility] 00 [facility] Hyalgan 20 Hyalgan 20 2020-0 No 20mg C ommon mg mg 4-27 Spirit 00:00: - [facility] 00 [facility] Bupivicaine Bupivicaine 2020-0 No 2.5mg Common [place] 4-27 [facility] 00:00: - [facility] 00 [facility] Kenalog Kenalog 2020-0 No 40mg Common (Triamcinol (Triamcinol 4-27 S pirit one) one) 00:00: - [facility] 00 [facility] Hyalgan 20 Hyalgan 20 2020-0 No 20mg C ommon mg mg -27 Spirit 00:00: - [facility] 00 [facility] Bupivicaine Bupivicaine 2020-0 No 2.5mg Common [place] 4-27 [facility] 00:00: - [facility] 00 [facility] Kenalog Kenalog 2020-0 No 40mg Common (Triamcinol (Triamcinol 4-27 S pirit one) one) 00:00: - [facility] 00 [facility] Hyalgan 20 Hyalgan 20 2020-0 No 20mg C ommon mg mg - Spirit 00:00: - [facility] 00 [facility] Bupivicaine Bupivicaine 2020-0 No 2.5mg Common [place] 4-27 [facility] 00:00: - [facility] 00 [facility] Kenalog Kenalog 2020-0 No 40mg Common (Triamcinol (Triamcinol 4-27 S pirit one) one) 00:00: - [facility] 00 [facility] Hyalgan 20 Hyalgan 20 2020-0 No 20mg C ommon mg mg - Spirit 00:00: - [facility] 00 [facility] Bupivicaine Bupivicaine 2020-0 No 2.5mg Common [place] 4-27 [facility] 00:00: - [facility] 00 [facility] Kenalog Kenalog 2020-0 No 40mg Common (Triamcinol (Triamcinol 4-27 S pirit one) one) 00:00: - [facility] 00 [facility] Hyalgan 20 Hyalgan 20 2020-0 No 20mg C ommon mg mg 4-27 Spirit 00:00: - [facility] 00 [facility] Bupivicaine Bupivicaine 0 No 2.5mg Common [place] 4-27 [facility] 00:00: - [facility] Kenalog Kenalog No 40mg Common (Triamcinol (Triamcinol 4-27 S pirit one) one) 00:00: - [facility] 00 [facility] Hyalgan 20 Hyalgan 20 0 No 20mg C ommon mg mg - Spirit 00:00: - [facility] Bupivicaine Bupivicaine 0 No 2.5mg Common [place] 4-27 [facility] 00:00: - [facility] Kenalog Kenalog No 40mg Common (Triamcinol (Triamcinol 4-27 S pirit one) one) 00:00: - [facility] Hyalgan 20 Hyalgan 20 0 No 20mg C ommon mg mg - [facility] 00:00: - [facility] Bupivicaine Bupivicaine 0 No 2.5mg Common [place] - [facility] 00:00: - [facility] Kenalog Kenalog No 40mg Common (Triamcinol (Triamcinol 4-27 S pirit one) one) 00:00: - [facility] Linzess 290 Yes 1{capsu Take 1 U nivers mcg cap 4-21 le} capsule by ity of 00:00: mouth as [place] 00 needed. MD [facility] Mirtazapine Yes 15 mg = 1 M emoria 15 MG Oral 3-17 tab, PO, l Tablet 21:38: Bedtime, # Penelope nn [Remeron] 00 30 tab, 3 Refill(s), Pharmacy: [facility][id number], 149.86, cm, 06/06/20 15:47:00 CDT, Height, 89.091, kg, 06/06/20 15:47:00 CDT, Weight Mirtazapine Yes 15 mg = 1 M emoria 15 MG Oral 3-17 tab, PO, l Tablet 21:38: Bedtime, # Penelope nn [Remeron] 00 30 tab, 3 Refill(s), Pharmacy: [facility] #[id number], 149.86, cm, 06/06/20 15:47:00 CDT, Height, 89.091, kg, 06/06/20 15:47:00 CDT, Weight pregabalin Yes 50 mg, PO, M emoria 3-17 TID, 0 l 20:51: Refill(s) letrozole 0 Yes 2.5 mg, Memor ia 3-17 PO, Daily, l 20:51: 0 Refill(s) pregabalin 0 Yes 50 mg, PO, M emoria 3-17 TID, 0 l 20:51: Refill(s) letrozole Yes 2.5 mg, Memor ia 3-17 PO, Daily, l 20:51: 0 Refill(s) Vitamin D3 0 Yes 0 Memoria 3-17 Refill(s) l 20:50: Tramadol Yes 50 mg, PO, Mem oria 3-17 PRN, PRN l 20:50: Pain Vitamin D3 Yes 0 Memoria 3-17 Refill(s) l 20:50: Tramadol 0 Yes 50 mg, PO, Mem oria 3-17 PRN, PRN l 20:50: Pain traMADol 0 Yes Infiltratin 50mg Take 1 [facility] (ULTRAM) 50 2-26 g duct tablet (50 ity of mg tablet 00:00: carcinoma mg) by [place] 00 of upper mouth MD outer every 6 Anderso quadrant of (six) n left female hours as Canc er breast needed for Center moderate pain. triamcinolo 2019-03- No Dermatitis, Apply [facility] ne 04-14 not topically ity of (KENALOG) 00:00: 00:[place] ointment 00 :00 specified affected MD 0.1% area(s) Anderso twice n daily. [facility] prochlorper 2021- No Infiltratin 10mg Take 1 [facility] azine 10-16 07-08 g duct tablet (10 ity o f (COMPAZINE) 00:00: 00:00 carcinoma mg) by [place] 10 mg 00 :00 of upper mouth MD tablet outer every 6 Anderso quadrant of (six) n left female hours as Canc er breast needed for Center nausea or vomiting. lidocaine-p 2021- No Infiltratin Apply to [facility] rilocaine 10-16 03-30 g duct [place] of (EMLA) 00:00: 00:00 carcinoma h area 30 [place] 2.5-2.5% 00 :00 of upper to 45 MD cream outer minutes Anderso quadrant of prior to n left female port Cancer breast access as Center directed (topical anesthetic ). BusPIRone BusPIRone Yes Reema 1 tablet Common HCl HCl 6-10 [place] [facility] 00:00: - [facility] 00 [facility] busPIRone busPIRone 2019- No 1{table busPIRone HCl 7.5 MG HCl 7.5 MG 6-10 t} HCl 7.5 MG 00:00: 00 busPIRone busPIRone 2019-0 No 1{table busPIRone HCl 7.5 MG HCl 7.5 MG 6-10 t} HCl 7.5 MG 00:00: 00 busPIRone busPIRone 2019-0 No 1{table busPIRone HCl 7.5 MG HCl 7.5 MG 6-10 t} HCl 7.5 MG 00:00: 00 busPIRone busPIRone 2019-0 No 1{table busPIRone HCl 7.5 MG HCl 7.5 MG 6-10 t} HCl 7.5 MG 00:00: 00 busPIRone busPIRone 2019-0 No 1{table busPIRone HCl 7.5 MG HCl 7.5 MG 6-10 t} HCl 7.5 MG 00:00: 00 busPIRone busPIRone 2019-0 No 1{table busPIRone HCl 7.5 MG HCl 7.5 MG 6-10 t} HCl 7.5 MG 00:00: 00 busPIRone busPIRone 2019- No 1{table busPIRone HCl 7.5 MG HCl 7.5 MG 6-10 t} HCl 7.5 MG 00:00: 00 busPIRone busPIRone 2019- No 1{table busPIRone HCl 7.5 MG HCl 7.5 MG 6-10 t} HCl 7.5 MG 00:00: 00 busPIRone busPIRone No 1{table busPIRone HCl 7.5 MG HCl 7.5 MG 6-10 t} HCl 7.5 MG 00:00: 00 busPIRone busPIRone No 1{table busPIRone HCl 7.5 MG HCl 7.5 MG 6-10 t} HCl 7.5 MG 00:00: 00 busPIRone busPIRone No 1{table busPIRone HCl 7.5 MG HCl 7.5 MG 6-10 t} HCl 7.5 MG 00:00: 00 amLODIPine 2021- No 5mg Take 5 mg U nivers (NORVASC) 5 07-16-30 by mouth ity of mg tablet 00:00: 00:00 daily. [place] [facility] :[facility] Simvastatin Simvastatin Yes Reema 1 tablet Common 18 [place] in the [facility] 00:00: evening - [facility] 00 [facility] metoprolol 2021- No 25mg Take 25 mg [facility] tartrate 05-10-30 by mouth ity of (LOPRESSOR) 00:00: 00:[place] 25 mg 00 :00 daily. [facility] Crestor Crestor Yes Reema 1 tablet Co mmon 10-29 [facility] 00:00: - [facility] 00 [facility] Crestor 20 Crestor 20 No 1{table QD Crestor 20 MG MG 8- t} MG 00:00: 00 Crestor 20 Crestor 20 No 1{table QD Crestor 20 MG MG 8-09 t} MG 00:00: 00 Crestor 20 Crestor 20 No 1{table QD Crestor 20 MG MG 8-09 t} MG 00:00: 00 Crestor 20 Crestor 20 No 1{table QD Crestor 20 MG MG 8-09 t} MG 00:00: 00 Crestor 20 Crestor 20 No 1{table QD Crestor 20 MG MG 8-09 t} MG 00:00: 00 Crestor 20 Crestor 20 No 1{table QD Crestor 20 MG MG 8-09 t} MG 00:00: 00 Crestor 20 Crestor 20 No 1{table QD Crestor 20 MG MG 8-09 t} MG 00:00: 00 Crestor 20 Crestor 20 No 1{table QD Crestor 20 MG MG 8-09 t} MG 00:00: 00 Crestor 20 Crestor 20 No 1{table QD Crestor 20 MG MG 8-09 t} MG 00:00: 00 Crestor 20 Crestor 20 No 1{table QD Crestor 20 MG MG 8-09 t} MG 00:00: 00 Crestor 20 Crestor 20 No 1{table QD Crestor 20 MG MG 8-09 t} MG 00:00: 00 Zofran Zofran 2018-0 Yes Reema 1 tablet Comm on 805 [place] as needed Spiri t 00:00: for - [facility] 00 nausea/vom [facility] Imitrex Imitrex Yes Reema as Common 805 [place] directed Spirit 00:00: - [facility] 00 [facility] Zofran 4 MG Zofran 4 MG 2018-0 No Zofran 4 8-05 MG 00:00: 00 Imitrex 50 Imitrex 50 No Imitrex 50 MG MG 8-05 MG 00:00: 00 Zofran 4 MG Zofran 4 MG 2018-0 No Zofran 4 8-05 MG 00:00: 00 Imitrex 50 Imitrex 50 2018-0 No Imitrex 50 MG MG 8-05 MG 00:00: 00 Zofran 4 MG Zofran 4 MG 2018-0 No Zofran 4 8-05 MG 00:00: 00 Imitrex 50 Imitrex 50 2018-0 No Imitrex 50 MG MG 8-05 MG 00:00: 00 Imitrex 50 Imitrex 50 2018-0 No Imitrex 50 MG MG 8-05 MG 00:00: 00 Zofran 4 MG Zofran 4 MG 2018-0 No Zofran 4 8-05 MG 00:00: 00 Imitrex 50 Imitrex 50 2018- No Imitrex 50 MG MG 8-05 MG 00:00: 00 Zofran 4 MG Zofran 4 MG 2019-0 No Zofran 4 8-05 MG 00:00: 00 Imitrex 50 Imitrex 50 2019-0 No Imitrex 50 MG MG 8-05 MG 00:00: 00 Zofran 4 MG Zofran 4 MG 2019-0 No Zofran 4 8-05 MG 00:00: 00 Imitrex 50 Imitrex 50 2019-0 No Imitrex 50 MG MG 8-05 MG 00:00: 00 Zofran 4 MG Zofran 4 MG 2019-0 No Zofran 4 8-05 MG 00:00: 00 Zofran 4 MG Zofran 4 MG 2019-0 No Zofran 4 8-05 MG 00:00: 00 Imitrex 50 Imitrex 50 2019-0 No Imitrex 50 MG MG 8-05 MG 00:00: 00 Zofran 4 MG Zofran 4 MG 2018-0 No Zofran 4 8-05 MG 00:00: 00 Imitrex 50 Imitrex 50 2018-0 No Imitrex 50 MG MG 8-05 MG 00:00: 00 Imitrex 50 Imitrex 50 2018-0 No Imitrex 50 MG MG 8-05 MG 00:00: 00 Zofran 4 MG Zofran 4 MG 2018-0 No Zofran 4 8-05 MG 00:00: 00 Imitrex 50 Imitrex 50 2019-0 No Imitrex 50 MG MG 8-05 MG 00:00: 00 Zofran 4 MG Zofran 4 MG 2018-0 No Zofran 4 8-05 MG 00:00: 00 Wellbutrin Wellbutrin Yes Reema 1 tablet Common XL XL 4-20 [place] in the [facility] 00:00: morning - [facility] 00 [facility] Wellbutrin Wellbutrin No 1{table QD Wellbutrin XL 150 MG XL 150 MG 4-20 t_in_th XL 150 MG 00:00: e_[email or web address] 00 ng} Wellbutrin Wellbutrin No 1{table QD Wellbutrin XL 150 MG XL 150 MG 4-20 t_in_th XL 150 MG 00:00: e_[email or web address] 00 ng} Wellbutrin Wellbutrin No 1{table QD Wellbutrin XL 150 MG XL 150 MG 4-20 t_in_th XL 150 MG 00:00: e_[email or web address] 00 ng} Wellbutrin Wellbutrin 2017-0 No 1{table QD Wellbutrin XL 150 MG XL 150 MG 4-20 t_in_th XL 150 MG 00:00: e_[email or web address] 00 ng} Wellbutrin Wellbutrin 2017-0 No 1{table QD Wellbutrin XL 150 MG XL 150 MG 4-20 t_in_th XL 150 MG 00:00: e_[email or web address] 00 ng} Wellbutrin Wellbutrin 2017-0 No 1{table QD Wellbutrin XL 150 MG XL 150 MG 4-20 t_in_th XL 150 MG 00:00: e_[email or web address] 00 ng} Wellbutrin Wellbutrin 2017- No 1{table QD Wellbutrin XL 150 MG XL 150 MG 4-20 t_in_th XL 150 MG 00:00: e_[email or web address] 00 ng} Wellbutrin Wellbutrin 2017- No 1{table QD Wellbutrin XL 150 MG XL 150 MG 4-20 t_in_th XL 150 MG 00:00: e_[email or web address] 00 ng} Wellbutrin Wellbutrin 2017- No 1{table QD Wellbutrin XL 150 MG XL 150 MG 4-20 t_in_th XL 150 MG 00:00: e_morni 00 ng} Wellbutrin Wellbutrin 2017-0 No 1{table QD Wellbutrin XL 150 MG XL 150 MG 4-20 t_in_th XL 150 MG 00:00: e_morni 00 ng} Wellbutrin Wellbutrin 2017-0 No 1{table QD Wellbutrin XL 150 MG XL 150 MG 4-20 t_in_th XL 150 MG 00:00: e_[email or web address] 00 ng} levothyroxi 2021- No 50ug Take 50 Un [place] 10-06 03-30 mcg by ity of (SYNTHROID, 00:00[place] LEVOTHR[place] 00 :00 daily. 50 mcg Anderso tablet n [facility] [facility] Phenergan 2012-03 No Haja 12.5 mg, Me moria 0-16 Phelpsmargo Diaz Route: l 18:21: IVPB, Pruden 00 ONCE, Dosing Weight 78.636, kg, PRN Nausea & Vomiting, Start date: 01/05/13 13:21:00 Phenergan 2012-03 No Haja 12.5 mg, Me moria 0-16 Phelps Diaz Route: l 18:21: IVPB, Pruden 00 ONCE, Dosing Weight 78.636, kg, PRN Nausea & Vomiting, Start date: 01/05/13 13:21:00 [place] 2012-03 No Haja 1 tab, Memoria 10/325 oral 0-16 Phelps Diaz Route: PO, l tablet 17:55: Dosing Wayne 00 Weight 78.636, kg, ONCE, Start date: 01/05/13 12:55:00, Stop date: 01/05/13 12:55:00 [place] 2012-03 No Haja 1 tab, Memoria 10/325 oral 0-16 Phelps Diaz Route: PO, l tablet 17:55: Dosing Pruden 00 Weight 78.636, kg, ONCE, Start date: 01/05/13 12:55:00, Stop date: 01/05/13 12:55:00 Ofirmev 2012-03 No Haja 1,000 mg, Mem oria 0-16 Phelps Emily Route: IV, l 17:10: Drug form: Pruden 00 INJ, ONCE, Dosing Weight 78.636, kg, PRN Pain, for > or = 50 kg, Start date: 01/05/13 12:10:00 Ofirmev 2012-03 No Haja 1,000 mg, Mem oria 0-16 Phelps Diaz Route: IV, l 17:10: Drug form: Wayne 00 INJ, ONCE, Dosing Weight 78.636, kg, PRN Pain, for > or = 50 kg, Start date: 01/05/13 12:10:00 [place] 2012-03 Yes Dc Casimiro 1 tab, PO, Memoria oral tablet 0-16 Hinh Q4-6H, l 17:04: PRN, 30 Pruden 32 tab, as needed for pain, Substituti on Allowed, Maintenanc e [place] 2012-03 Yes Dc Casimiro 1 tab, PO, Memoria oral tablet 0-16 Hinh Q4-6H, l 17:04: PRN, 30 Pruden 32 tab, as needed for pain, Substituti on Allowed, Maintenanc e hydrALAZINE 2012-03 No Peter 5 mg, Stu dipak 0-16 Shun-Hsien Route: l 16:55: Felder IVP, Pruden 00 Q5Min, Dosing Weight 78.636, kg, PRN Elevated BP, Start date: 01/05/13 11:55:00, Duration: 4 doses or times, Stop date: Limited # of times metoprolol 2012-03 No Peter 1 mg, Memor ia 0-16 Shun-Hsien Route: l 16:55: Felder IVP, Wayne 00 Q5Min, Dosing Weight 78.636, kg, PRN Elevated BP, Start date: 01/05/13 11:55:00, Duration: 5 doses or times, Stop date: Limited # of times labetalol 2012-03 No Peter 5 mg, Memori a 0-16 Shun-Hsien Route: l 16:55: Felder IVP, Wayne 00 Q5Min, Dosing Weight 78.636, kg, PRN Elevated BP, Start date: 01/05/13 11:55:00, Duration: 5 doses or times, Stop date: Limited # of times enalapril 2012-03 No Peter 0.625 mg, Me moria 0-16 Shun-Hsien Route: l 16:55: Felder IVP, Wayne 00 Q5Min, Dosing Weight 78.636, kg, PRN Elevated BP, Start date: 01/05/13 11:55:00, Duration: 4 doses or times, Stop date: Limited # of times morphine 2012-03 No Peter 2 mg, Memoria Sulfate 0-16 Shun-Hsien Route: l 16:55: Felder IVP, Wayne 00 Q5Min, Dosing Weight 78.636, kg, PRN Pain Score 4-6, Start date: 01/05/13 11:55:00, Duration: 5 doses or times, Stop date: Limited # of times hydromorpho 2012-03 No Peter 0.5 mg, Me moria ne 0-16 Shun-Hsien Route: l 16:55: Felder IVP, Pruden 00 Q5Min, Dosing Weight 78.636, kg, PRN Pain Score 7-10, Start date: 01/05/13 11:55:00, Duration: 5 doses or times, Stop date: Limited # of times dexamethaso 2012-03 No Dc 4 mg, Stu dipak ne 0-16 Shun-Hsien Route: l 16:55: Felder IVP, ONCE, Raheem n 00 Dosing Weight 78.636, kg, PRN Nausea & Vomiting, Start date: 01/05/13 11:55:00 ondansetron 2012-03 No Dc 4 mg, Stu dipak 0-16 Shun-Hsien Route: l 16:55: Felder IVP, ONCE, Raheem n 00 Dosing Weight 78.636, kg, PRN Nausea & Vomiting, Start date: 01/05/13 11:55:00 diphenhydrA 2012-03 No Dc 12.5 mg, M emoria MINE 0-16 Shun-Hsien Route: l 16:55: Felder IVP, Drug Pruden 00 form: INJ, PRN, Dosing Weight 78.636, kg, PRN Itching, Start date: 01/05/13 11:55:00, Duration: 30 day, Stop date: 02/04/13 10:54:00 promethazin 2012-03 No Dc 6.25 mg, M emoria e 0-16 Shun-Hsien Route: l 16:55: Felder IVPB, Pruden 00 ONCE, Dosing Weight 78.636, kg, PRN Nausea & Vomiting, Start date: 01/05/13 11:55:00 flumazenil 2012-03 No Dc 0.2 mg, Mem oria 0-16 Shun-Hsien Route: l 16:55: Felder IVP, PRN, Wayne 00 Dosing Weight 78.636, kg, PRN Benzodiaze pine Reversal, Initial dose, Start date: 01/05/13 11:55:00, Duration: 30 day, Stop date: 02/04/13 10:54:00 naloxone 2012-03 No Dc 0.04 mg, Stu dipak 0-16 Shun-Hsien Route: l 16:55: Felder IVP, Pruden 00 Q2MIN, Dosing Weight 78.636, kg, PRN Narcotic Reversal, Start date: 01/05/13 11:55:00, Duration: 8 doses or times, Stop date: Limited # of times meperidine 2012-03 No Peter 12.5 mg, Me moria 0-16 Shun-Hsien Route: l 16:55: Felder IVP, Pruden 00 Q30Min, Dosing Weight 78.636, kg, PRN Other -See Comment, For shivering, Start date: 01/05/13 11:55:00, Duration: 2 doses or times, Stop date: Limited # of times hydrALAZINE 2012-03 No Peter 5 mg, Stu dipak 0-16 Shun-Hsien Route: l 16:55: Felder IVP, Wayne 00 Q5Min, Dosing Weight 78.636, kg, PRN Elevated BP, Start date: 01/05/13 11:55:00, Duration: 4 doses or times, Stop date: Limited # of times metoprolol 2012-03 No Dc 1 mg, Memor ia 0-16 Shun-Hsien Route: l 16:55: Felder IVP, Pruden 00 Q5Min, Dosing Weight 78.636, kg, PRN Elevated BP, Start date: 01/05/13 11:55:00, Duration: 5 doses or times, Stop date: Limited # of times labetalol 2012-03 No Peter 5 mg, Memori a 0-16 Shun-Hsien Route: l 16:55: Felder IVP, Pruden 00 Q5Min, Dosing Weight 78.636, kg, PRN Elevated BP, Start date: 01/05/13 11:55:00, Duration: 5 doses or times, Stop date: Limited # of times enalapril 2012-03 No Peter 0.625 mg, Me moria 0-16 Shun-Hsien Route: l 16:55: Felder IVP, Pruden 00 Q5Min, Dosing Weight 78.636, kg, PRN Elevated BP, Start date: 01/05/13 11:55:00, Duration: 4 doses or times, Stop date: Limited # of times morphine 2012-03 No Peter 2 mg, Memoria Sulfate 0-16 Shun-Hsien Route: l 16:55: Felder IVP, Pruden 00 Q5Min, Dosing Weight 78.636, kg, PRN Pain Score 4-6, Start date: 01/05/13 11:55:00, Duration: 5 doses or times, Stop date: Limited # of times hydromorpho 2012-03 No Peter 0.5 mg, Me moria ne 0-16 Shun-Hsien Route: l 16:55: Felder IVP, Pruden 00 Q5Min, Dosing Weight 78.636, kg, PRN Pain Score 7-10, Start date: 01/05/13 11:55:00, Duration: 5 doses or times, Stop date: Limited # of times dexamethaso 2012-03 No Dc 4 mg, Stu dipak ne 0-16 Shun-Hsien Route: l 16:55: Felder IVP, ONCE, Raheem n 00 Dosing Weight 78.636, kg, PRN Nausea & Vomiting, Start date: 01/05/13 11:55:00 ondansetron 2012-03 No Dc 4 mg, Stu dipak 0-16 Shun-Hsien Route: l 16:55: Felder IVP, ONCE, Raheem n 00 Dosing Weight 78.636, kg, PRN Nausea & Vomiting, Start date: 01/05/13 11:55:00 diphenhydrA 2012-03 No cD 12.5 mg, M emoria MINE 0-16 Shun-Hsien Route: l 16:55: Felder IVP, Drug Pruden 00 form: INJ, PRN, Dosing Weight 78.636, kg, PRN Itching, Start date: 01/05/13 11:55:00, Duration: 30 day, Stop date: 02/04/13 10:54:00 promethazin 2012-03 No Dc 6.25 mg, M emoria e 0-16 Shun-Hsien Route: l 16:55: Felder IVPB, Wayne 00 ONCE, Dosing Weight 78.636, kg, PRN Nausea & Vomiting, Start date: 01/05/13 11:55:00 flumazenil 2012-03 No Dc 0.2 mg, Mem oria 0-16 Shun-Hsien Route: l 16:55: Felder IVP, PRN, Pruden 00 Dosing Weight 78.636, kg, PRN Benzodiaze pine Reversal, Initial dose, Start date: 01/05/13 11:55:00, Duration: 30 day, Stop date: 02/04/13 10:54:00 naloxone 2012-03 No Dc 0.04 mg, Stu dipak 0-16 Shun-Hsien Route: l 16:55: Felder IVP, Wayne 00 Q2MIN, Dosing Weight 78.636, kg, PRN Narcotic Reversal, Start date: 01/05/13 11:55:00, Duration: 8 doses or times, Stop date: Limited # of times meperidine 2012-03 No Dc 12.5 mg, Me moria 0-16 Shun-Hsien Route: l 16:55: Felder IVP, Wayne 00 Q30Min, Dosing Weight 78.636, kg, PRN Other -See Comment, For shivering, Start date: 01/05/13 11:55:00, Duration: 2 doses or times, Stop date: Limited # of times cefazolin 2012-03 No Dc Casimiro 2 gm, M emoria 0-16 Hinh Route: l 13:34: IVPB, Pruden 00 ONCE, Dosing Weight 78.636, kg, Start date: 01/05/13 8:34:00, Stop date: 01/05/13 8:34:00 Cipro I.V. 2012-03 No Dc Casimiro 400 mg, Memoria 400 mg/200 0-16 Hinh Route: l mL 13:34: IVPB, Wayne intravenous 00 ONCE, solution Dosing Weight 78.636, kg, Start date: 01/05/13 8:34:00, Stop date: 01/05/13 8:34:00 cefazolin 2012-03 No Dc Casimiro 2 gm, M emoria 0-16 Hinh Route: l 13:34: IVPB, Wayne 00 ONCE, Dosing Weight 78.636, kg, Start date: 01/05/13 8:34:00, Stop date: 01/05/13 8:34:00 Cipro I.V. 2012-03 No Dc Casimiro 400 mg, Memoria 400 mg/200 0-16 Hinh Route: l mL 13:34: IVPB, Wayne intravenous 00 ONCE, solution Dosing Weight 78.636, kg, Start date: 01/05/13 8:34:00, Stop date: 01/05/13 8:34:00 Lactated 2012-03 No Denny 1,000 mL, Me moria Ringers 0-16 Elie Rate: 25 l Injection 13:32: Dominguez ml/hr, Herm flex IV 1000 mL 00 Infuse over: 40 hr, Route: IV, Dosing Weight 78.636 kg, Total Volume: 1,000, Start date: 01/05/13 8:32:00, Duration: 30 day, Stop date: 02/04/13 8:31:00 Lactated 2012-03 No Denny 1,000 mL, Me moria Ringers 0-16 Elie Rate: 25 l Injection 13:32: Dominguez ml/hr, Herm flex IV 1000 mL 00 Infuse over: 40 hr, Route: IV, Dosing Weight 78.636 kg, Total Volume: 1,000, Start date: 01/05/13 8:32:00, Duration: 30 day, Stop date: 02/04/13 8:31:00 biotin 2012-03 Yes PO, Daily, Memor ia 0-09 Substituti l 19:35: on Allowed Pruden 39 biotin 2012-03 Yes PO, Daily, Memor ia 0-09 Substituti l 19:35: on Allowed Wayne 39 Ambien 5 mg 2012-03 Yes 5 mg, 1 Mem oria oral tablet 0-09 tab, PO, l 19:35: Bedtime, Wayne 20 PRN, for sleep, Substituti on Allowed, TAB Ambien 5 mg 2012-03 Yes 5 mg, 1 Mem oria oral tablet 0-09 tab, PO, l 19:35: Bedtime, Wayne 20 PRN, for sleep, Substituti on Allowed, TAB Linzess 2012-03 Yes PO, Daily, Stu dipak 0-09 Substituti l 19:31: on Allowed Wayne 43 Linzess 2012-03 Yes PO, Daily, Stu dipak 0-09 Substituti l 19:31: on Allowed Wayne 43 Benicar HCT 2012-03 Yes 1 tab, PO, Memoria 25 mg-40 mg 0-09 Daily, 30 l oral tablet 19:31: tab, Raheem n 03 Substituti on Allowed, Maintenanc e, TAB Benicar HCT 2012-03 Yes 1 tab, PO, Memoria 25 mg-40 mg 0-09 Daily, 30 l oral tablet 19:31: tab, Raheem n 03 Substituti on Allowed, Maintenanc e, TAB Lipitor 40 2012-03 Yes 40 mg, 1 Mem oria mg oral 0-09 tab, PO, l tablet 19:30: Daily, 30 Raheem n 27 tab, Substituti on Allowed, TAB Lipitor 40 2013-1 Yes 40 mg, 1 Mem oria mg oral 0-09 tab, PO, l tablet 19:30: Daily, 30 Raheem n 27 tab, Substituti on Allowed, TAB BusPIRone BusPIRone Yes Reema 1 tablet Common HCl HCl Millender prn [facility] anxiety [facility] Ambien Ambien Yes Reema 1 tablet Common Millender at bedtime [facility] as needed [facility] Lipitor Lipitor Yes Reema 1 tablet Comm on Millender in evening Spir it - [facility] Synthroid Synthroid Yes Reema 1 tablet Common Millender on an [facility] empty - [facility] stomach in [facility] Norvasc Norvasc Yes Reema 1 tablet Comm on Millender [facility] Ultram Ultram Yes Reema 1 tablet Common Millender as needed Spiri t [facility] Gabapentin Gabapentin Yes Reema 1 capsule Common Millender before [facility] bedtime [facility] Lisinopril Lisinopril Yes Reema 1 tablet Common Millender [facility] Metoprolol Metoprolol Yes Reema 1 tablet Common Tartrate Tartrate Millender with food [facility] Metformin Metformin Yes Reema 1 tablet Common HCl HCl Millender [facility] Protonix Protonix Yes Reema 1 tablet Co mmon Millender [facility] Vitamin D3 Vitamin D3 Yes Reema 1 tablet Common Millender [facility] Amitriptyli Amitriptyli Yes Reema 1 tablet Common ne HCl ne HCl Millender at bedtime [facility] Zolpidem Zolpidem Yes Reema 1 tablet Co mmon Tartrate Tartrate Millender at bedtime [facility] Topamax Topamax Yes Reema 1 tablet Comm on Millender at bedtime Spir it for - [facility] migraines [facility] HydrOXYzine HydrOXYzine Yes Reema 1 tablet Common HCl HCl Millender as needed Spiri t - [facility] Belsomra Belsomra Yes Reema 1 tablet Co mmon Millender at bedtime Spir it as needed - [facility] Trazodone Trazodone Yes Reema 1 tablet Common HCl HCl Millender at bedtime Spir it - [facility] Pantoprazol Pantoprazol Yes Reema 1 tablet Common e Sodium e Sodium Millender Sp galindo [facility] Letrozole Letrozole No 1{table QD Letrozole 2.5 MG 2.5 MG t} 2.5 MG Linzess 290 Linzess 290 No Linzess mcg mcg 290 mcg Pregabalin Pregabalin No 1{capsu BID Pregabalin 75 MG 75 MG le} 75 MG Pantoprazol Pantoprazol No 1{table QD Pantoprazo e Sodium 40 e Sodium 40 t} le Sodium MG MG 40 MG Letrozole Letrozole No 1{table QD Letrozole 2.5 MG 2.5 MG t} 2.5 MG Linzess 290 Linzess 290 No Linzess mcg mcg 290 mcg Pregabalin Pregabalin No 1{capsu BID Pregabalin 75 MG 75 MG le} 75 MG Pantoprazol Pantoprazol No 1{table QD Pantoprazo e Sodium 40 e Sodium 40 t} le Sodium MG MG 40 MG traMADol traMADol No 1{table QD traMADol HCl 50 MG HCl 50 MG t_as_ne HCl 50 MG eded} Linzess 290 Linzess 290 No Linzess mcg mcg 290 mcg Pantoprazol Pantoprazol No 1{table QD Pantoprazo e Sodium 40 e Sodium 40 t} le Sodium MG MG 40 MG Pregabalin Pregabalin No 1{capsu BID Pregabalin 75 MG 75 MG le} 75 MG traMADol traMADol No 1{table QD traMADol HCl 50 MG HCl 50 MG t_as_ne HCl 50 MG eded} Linzess 290 Linzess 290 No Linzess mcg mcg 290 mcg Pantoprazol Pantoprazol No 1{table QD Pantoprazo e Sodium 40 e Sodium 40 t} le Sodium MG MG 40 MG Pregabalin Pregabalin No 1{capsu BID Pregabalin 75 MG 75 MG le} 75 MG Pantoprazol Pantoprazol No 1{table QD Pantoprazo e Sodium 40 e Sodium 40 t} le Sodium MG MG 40 MG Ambien 10 Ambien 10 No QD Ambien 10 MG MG MG Linzess 290 Linzess 290 No Linzess mcg mcg 290 mcg Atorvastati Atorvastati No 1{table QD Atorvastat n Calcium n Calcium t} in Calcium 10 MG 10 MG 10 MG traMADol traMADol No 1{table QD traMADol HCl 50 MG HCl 50 MG t_as_ne HCl 50 MG eded} Lisinopril- Lisinopril- No 1{table QD Lisinopril hydroCHLORO hydroCHLORO t} -hydroCHLO thiazide thiazide ROthiazide 10-12.5 MG 10-12.5 MG 10-12.5 MG Pregabalin Pregabalin No 1{capsu BID Pregabalin 75 MG 75 MG le} 75 MG Lomaira 8 Lomaira 8 No TID Lomaira 8 MG MG MG Letrozole Letrozole No 1{table QD Letrozole 2.5 MG 2.5 MG t} 2.5 MG Pantoprazol Pantoprazol No 1{table QD Pantoprazo e Sodium 40 e Sodium 40 t} le Sodium MG MG 40 MG Ambien 10 Ambien 10 No QD Ambien 10 MG MG MG Linzess 290 Linzess 290 No Linzess mcg mcg 290 mcg Atorvastati Atorvastati No 1{table QD Atorvastat n Calcium n Calcium t} in Calcium 10 MG 10 MG 10 MG traMADol traMADol No 1{table QD traMADol HCl 50 MG HCl 50 MG t_as_ne HCl 50 MG eded} Lisinopril- Lisinopril- No 1{table QD Lisinopril hydroCHLORO hydroCHLORO t} -hydroCHLO thiazide thiazide ROthiazide 10-12.5 MG 10-12.5 MG 10-12.5 MG Pregabalin Pregabalin No 1{capsu BID Pregabalin 75 MG 75 MG le} 75 MG Lomaira 8 Lomaira 8 No TID Lomaira 8 MG MG MG Letrozole Letrozole No 1{table QD Letrozole 2.5 MG 2.5 MG t} 2.5 MG Pantoprazol Pantoprazol No 1{table QD Pantoprazo e Sodium 40 e Sodium 40 t} le Sodium MG MG 40 MG Ambien 10 Ambien 10 No QD Ambien 10 MG MG MG Linzess 290 Linzess 290 No Linzess mcg mcg 290 mcg Atorvastati Atorvastati No 1{table QD Atorvastat n Calcium n Calcium t} in Calcium 10 MG 10 MG 10 MG traMADol traMADol No 1{table QD traMADol HCl 50 MG HCl 50 MG t_as_ne HCl 50 MG eded} Lisinopril- Lisinopril- No 1{table QD Lisinopril hydroCHLORO hydroCHLORO t} -hydroCHLO thiazide thiazide ROthiazide 10-12.5 MG 10-12.5 MG 10-12.5 MG Pregabalin Pregabalin No 1{capsu BID Pregabalin 75 MG 75 MG le} 75 MG Lomaira 8 Lomaira 8 No TID Lomaira 8 MG MG MG Letrozole Letrozole No 1{table QD Letrozole 2.5 MG 2.5 MG t} 2.5 MG Atorvastati Atorvastati No 1{table QD Atorvastat n Calcium n Calcium t} in Calcium 10 MG 10 MG 10 MG Linzess 290 Linzess 290 No Linzess mcg mcg 290 mcg Lisinopril- Lisinopril- No 1{table QD Lisinopril hydroCHLORO hydroCHLORO t} -hydroCHLO thiazide thiazide ROthiazide 10-12.5 MG 10-12.5 MG 10-12.5 MG Letrozole Letrozole No 1{table QD Letrozole 2.5 MG 2.5 MG t} 2.5 MG Pantoprazol Pantoprazol No 1{table QD Pantoprazo e Sodium 40 e Sodium 40 t} le Sodium MG MG 40 MG traMADol traMADol No 1{table QD traMADol HCl 50 MG HCl 50 MG t_as_ne HCl 50 MG eded} Pregabalin Pregabalin No 1{capsu BID Pregabalin 75 MG 75 MG le} 75 MG Ambien 10 Ambien 10 No QD Ambien 10 MG MG MG Lomaira 8 Lomaira 8 No TID Lomaira 8 MG MG MG Atorvastati Atorvastati No 1{table QD Atorvastat n Calcium n Calcium t} in Calcium 10 MG 10 MG 10 MG Linzess 290 Linzess 290 No Linzess mcg mcg 290 mcg Letrozole Letrozole No 1{table QD Letrozole 2.5 MG 2.5 MG t} 2.5 MG Pantoprazol Pantoprazol No 1{table QD Pantoprazo e Sodium 40 e Sodium 40 t} le Sodium MG MG 40 MG Lisinopril- Lisinopril- No 1{table QD Lisinopril hydroCHLORO hydroCHLORO t} -hydroCHLO thiazide thiazide ROthiazide 10-12.5 MG 10-12.5 MG 10-12.5 MG Pregabalin Pregabalin No 1{capsu BID Pregabalin 75 MG 75 MG le} 75 MG traMADol traMADol No 1{table QD traMADol HCl 50 MG HCl 50 MG t_as_ne HCl 50 MG eded} Atorvastati Atorvastati No 1{table QD Atorvastat n Calcium n Calcium t} in Calcium 10 MG 10 MG 10 MG Linzess 290 Linzess 290 No Linzess mcg mcg 290 mcg Letrozole Letrozole No 1{table QD Letrozole 2.5 MG 2.5 MG t} 2.5 MG Pantoprazol Pantoprazol No 1{table QD Pantoprazo e Sodium 40 e Sodium 40 t} le Sodium MG MG 40 MG Lisinopril- Lisinopril- No 1{table QD Lisinopril hydroCHLORO hydroCHLORO t} -hydroCHLO thiazide thiazide ROthiazide 10-12.5 MG 10-12.5 MG 10-12.5 MG Pregabalin Pregabalin No 1{capsu BID Pregabalin 75 MG 75 MG le} 75 MG traMADol traMADol No 1{table QD traMADol HCl 50 MG HCl 50 MG t_as_ne HCl 50 MG eded} Atorvastati Atorvastati No 1{table QD Atorvastat n Calcium n Calcium t} in Calcium 10 MG 10 MG 10 MG Linzess 290 Linzess 290 No Linzess mcg mcg 290 mcg Letrozole Letrozole No 1{table QD Letrozole 2.5 MG 2.5 MG t} 2.5 MG Pantoprazol Pantoprazol No 1{table QD Pantoprazo e Sodium 40 e Sodium 40 t} le Sodium MG MG 40 MG Lisinopril- Lisinopril- No 1{table QD Lisinopril hydroCHLORO hydroCHLORO t} -hydroCHLO thiazide thiazide ROthiazide 10-12.5 MG 10-12.5 MG 10-12.5 MG Pregabalin Pregabalin No 1{capsu BID Pregabalin 75 MG 75 MG le} 75 MG traMADol traMADol No 1{table QD traMADol HCl 50 MG HCl 50 MG t_as_ne HCl 50 MG eded} Synvisc 16 Synvisc 16 No Synvisc 16 MG/2ML MG/2ML MG/2ML Pantoprazol Pantoprazol No 1{table QD Pantoprazo e Sodium 40 e Sodium 40 t} le Sodium MG MG 40 MG traMADol traMADol No 1{table QD traMADol HCl 50 MG HCl 50 MG t_as_ne HCl 50 MG eded} Lisinopril- Lisinopril- No 1{table QD Lisinopril hydroCHLORO hydroCHLORO t} -hydroCHLO thiazide thiazide ROthiazide 10-12.5 MG 10-12.5 MG 10-12.5 MG Atorvastati Atorvastati No Atorvastat n Calcium n Calcium in Calcium 10 MG 10 MG 10 MG Pregabalin Pregabalin No 1{capsu BID Pregabalin 75 MG 75 MG le} 75 MG Linzess 290 Linzess 290 No Linzess mcg mcg 290 mcg Letrozole Letrozole No 1{table QD Letrozole 2.5 MG 2.5 MG t} 2.5 MG Synvisc 16 Synvisc 16 No Synvisc 16 MG/2ML MG/2ML MG/2ML Synvisc 16 Synvisc 16 No Synvisc 16 MG/2ML MG/2ML MG/2ML Pantoprazol Pantoprazol No 1{table QD Pantoprazo e Sodium 40 e Sodium 40 t} le Sodium MG MG 40 MG traMADol traMADol No 1{table QD traMADol HCl 50 MG HCl 50 MG t_as_ne HCl 50 MG eded} Lisinopril- Lisinopril- No 1{table QD Lisinopril hydroCHLORO hydroCHLORO t} -hydroCHLO thiazide thiazide ROthiazide 10-12.5 MG 10-12.5 MG 10-12.5 MG Atorvastati Atorvastati No Atorvastat n Calcium n Calcium in Calcium 10 MG 10 MG 10 MG Pregabalin Pregabalin No 1{capsu BID Pregabalin 75 MG 75 MG le} 75 MG Linzess 290 Linzess 290 No Linzess mcg mcg 290 mcg Letrozole Letrozole No 1{table QD Letrozole 2.5 MG 2.5 MG t} 2.5 MG Synvisc 16 Synvisc 16 No Synvisc 16 MG/2ML MG/2ML MG/2ML Lisinopril- Lisinopril- No 1{table QD Lisinopril hydroCHLORO hydroCHLORO t} -hydroCHLO thiazide thiazide ROthiazide 10-12.5 MG 10-12.5 MG 10-12.5 MG Pregabalin Pregabalin No 1{capsu BID Pregabalin 75 MG 75 MG le} 75 MG Pantoprazol Pantoprazol No 1{table QD Pantoprazo e Sodium 40 e Sodium 40 t} le Sodium MG MG 40 MG traMADol traMADol No 1{table QD traMADol HCl 50 MG HCl 50 MG t_as_ne HCl 50 MG eded} Letrozole Letrozole No 1{table QD Letrozole 2.5 MG 2.5 MG t} 2.5 MG Linzess 290 Linzess 290 No Linzess mcg mcg 290 mcg Atorvastati Atorvastati No QD Atorvastat n Calcium n Calcium in Calcium 10 MG 10 MG 10 MG Synvisc 16 Synvisc 16 No Synvisc 16 MG/2ML MG/2ML MG/2ML Synvisc 16 Synvisc 16 No Synvisc 16 MG/2ML MG/2ML MG/2ML Pregabalin Pregabalin No 1{capsu BID Pregabalin 75 MG 75 MG le} 75 MG traMADol traMADol No 1{table QD traMADol HCl 50 MG HCl 50 MG t_as_ne HCl 50 MG eded} Linzess 290 Linzess 290 No Linzess mcg mcg 290 mcg Pantoprazol Pantoprazol No 1{table QD Pantoprazo e Sodium 40 e Sodium 40 t} le Sodium MG MG 40 MG Letrozole Letrozole No 1{table QD Letrozole 2.5 MG 2.5 MG t} 2.5 MG Atorvastati Atorvastati No 1{table QD Atorvastat n Calcium n Calcium t} in Calcium 10 MG 10 MG 10 MG Mounjaro Mounjaro No Mounjaro Atorvastati Atorvastati No QD Atorvastat n Calcium n Calcium in Calcium 10 MG 10 MG 10 MG Mounjaro 10 Mounjaro 10 No Mounjaro MG/0.5ML MG/0.5ML 10 MG/0.5ML Synvisc 16 Synvisc 16 No Synvisc 16 MG/2ML MG/2ML MG/2ML Lisinopril- Lisinopril- No 1{table QD Lisinopril hydroCHLORO hydroCHLORO t} -hydroCHLO thiazide thiazide ROthiazide 10-12.5 MG 10-12.5 MG 10-12.5 MG Synvisc 16 Synvisc 16 No Synvisc 16 MG/2ML MG/2ML MG/2ML Pregabalin Pregabalin No 1{capsu BID Pregabalin 75 MG 75 MG le} 75 MG traMADol traMADol No 1{table QD traMADol HCl 50 MG HCl 50 MG t_as_ne HCl 50 MG eded} Linzess 290 Linzess 290 No Linzess mcg mcg 290 mcg Pantoprazol Pantoprazol No 1{table QD Pantoprazo e Sodium 40 e Sodium 40 t} le Sodium MG MG 40 MG Letrozole Letrozole No 1{table QD Letrozole 2.5 MG 2.5 MG t} 2.5 MG Atorvastati Atorvastati No 1{table QD Atorvastat n Calcium n Calcium t} in Calcium 10 MG 10 MG 10 MG Mounjaro Mounjaro No Mounjaro Atorvastati Atorvastati No QD Atorvastat n Calcium n Calcium in Calcium 10 MG 10 MG 10 MG Mounjaro 10 Mounjaro 10 No Mounjaro MG/0.5ML MG/0.5ML 10 MG/0.5ML Synvisc 16 Synvisc 16 No Synvisc 16 MG/2ML MG/2ML MG/2ML Lisinopril- Lisinopril- No 1{table QD Lisinopril hydroCHLORO hydroCHLORO t} -hydroCHLO thiazide thiazide ROthiazide 10-12.5 MG 10-12.5 MG 10-12.5 MG Synvisc 16 Synvisc 16 No Synvisc 16 MG/2ML MG/2ML MG/2ML Pregabalin Pregabalin No 1{capsu BID Pregabalin 75 MG 75 MG le} 75 MG traMADol traMADol No 1{table QD traMADol HCl 50 MG HCl 50 MG t_as_ne HCl 50 MG eded} Linzess 290 Linzess 290 No Linzess mcg mcg 290 mcg Pantoprazol Pantoprazol No 1{table QD Pantoprazo e Sodium 40 e Sodium 40 t} le Sodium MG MG 40 MG Letrozole Letrozole No 1{table QD Letrozole 2.5 MG 2.5 MG t} 2.5 MG Atorvastati Atorvastati No 1{table QD Atorvastat n Calcium n Calcium t} in Calcium 10 MG 10 MG 10 MG Mounjaro Mounjaro No Mounjaro Atorvastati Atorvastati No QD Atorvastat n Calcium n Calcium in Calcium 10 MG 10 MG 10 MG Mounjaro 10 Mounjaro 10 No Mounjaro MG/0.5ML MG/0.5ML 10 MG/0.5ML Synvisc 16 Synvisc 16 No Synvisc 16 MG/2ML MG/2ML MG/2ML Lisinopril- Lisinopril- No 1{table QD Lisinopril hydroCHLORO hydroCHLORO t} -hydroCHLO thiazide thiazide ROthiazide 10-12.5 MG 10-12.5 MG 10-12.5 MG Atorvastati Atorvastati No 1{table QD Atorvastat n Calcium n Calcium t} in Calcium 10 MG 10 MG 10 MG Linzess 290 Linzess 290 No Linzess mcg mcg 290 mcg Lisinopril- Lisinopril- No 1{table QD Lisinopril hydroCHLORO hydroCHLORO t} -hydroCHLO thiazide thiazide ROthiazide 10-12.5 MG 10-12.5 MG 10-12.5 MG Letrozole Letrozole No 1{table QD Letrozole 2.5 MG 2.5 MG t} 2.5 MG Pantoprazol Pantoprazol No 1{table QD Pantoprazo e Sodium 40 e Sodium 40 t} le Sodium MG MG 40 MG traMADol traMADol No 1{table QD traMADol HCl 50 MG HCl 50 MG t_as_ne HCl 50 MG eded} Pregabalin Pregabalin No 1{capsu BID Pregabalin 75 MG 75 MG le} 75 MG Ambien 10 Ambien 10 No QD Ambien 10 MG MG MG Lomaira 8 Lomaira 8 No TID Lomaira 8 MG MG MG Atorvastati Atorvastati No 1{table QD Atorvastat n Calcium n Calcium t} in Calcium 10 MG 10 MG 10 MG Linzess 290 Linzess 290 No Linzess mcg mcg 290 mcg Letrozole Letrozole No 1{table QD Letrozole 2.5 MG 2.5 MG t} 2.5 MG Pantoprazol Pantoprazol No 1{table QD Pantoprazo e Sodium 40 e Sodium 40 t} le Sodium MG MG 40 MG Lisinopril- Lisinopril- No 1{table QD Lisinopril hydroCHLORO hydroCHLORO t} -hydroCHLO thiazide thiazide ROthiazide 10-12.5 MG 10-12.5 MG 10-12.5 MG Pregabalin Pregabalin No 1{capsu BID Pregabalin 75 MG 75 MG le} 75 MG traMADol traMADol No 1{table QD traMADol HCl 50 MG HCl 50 MG t_as_ne HCl 50 MG eded} Atorvastati Atorvastati No 1{table QD Atorvastat n Calcium n Calcium t} in Calcium 10 MG 10 MG 10 MG Linzess 290 Linzess 290 No Linzess mcg mcg 290 mcg Letrozole Letrozole No 1{table QD Letrozole 2.5 MG 2.5 MG t} 2.5 MG Pantoprazol Pantoprazol No 1{table QD Pantoprazo e Sodium 40 e Sodium 40 t} le Sodium MG MG 40 MG Lisinopril- Lisinopril- No 1{table QD Lisinopril hydroCHLORO hydroCHLORO t} -hydroCHLO thiazide thiazide ROthiazide 10-12.5 MG 10-12.5 MG 10-12.5 MG Pregabalin Pregabalin No 1{capsu BID Pregabalin 75 MG 75 MG le} 75 MG traMADol traMADol No 1{table QD traMADol HCl 50 MG HCl 50 MG t_as_ne HCl 50 MG eded} Atorvastati Atorvastati No 1{table QD Atorvastat n Calcium n Calcium t} in Calcium 10 MG 10 MG 10 MG Linzess 290 Linzess 290 No Linzess mcg mcg 290 mcg Letrozole Letrozole No 1{table QD Letrozole 2.5 MG 2.5 MG t} 2.5 MG Pantoprazol Pantoprazol No 1{table QD Pantoprazo e Sodium 40 e Sodium 40 t} le Sodium MG MG 40 MG Lisinopril- Lisinopril- No 1{table QD Lisinopril hydroCHLORO hydroCHLORO t} -hydroCHLO thiazide thiazide ROthiazide 10-12.5 MG 10-12.5 MG 10-12.5 MG Pregabalin Pregabalin No 1{capsu BID Pregabalin 75 MG 75 MG le} 75 MG traMADol traMADol No 1{table QD traMADol HCl 50 MG HCl 50 MG t_as_ne HCl 50 MG eded} Lisinopril Lisinopril No 1{table Lisinopril 20 MG 20 MG t} 20 MG Vitamin D3 Vitamin D3 No 1{table Vitamin D3 19967 UNIT 76511 UNIT t} 79537 UNIT Pantoprazol Pantoprazol No 1{table QD Pantoprazo e Sodium 20 e Sodium 20 t} le Sodium MG MG 20 MG Ultram 50 Ultram 50 No 1{table BID Ultram 50 MG MG t_as_ne MG eded} Protonix 40 Protonix 40 No 1{table QD Protonix MG MG t} 40 MG Belsomra 10 Belsomra 10 No 1{table QD Belsomra MG MG t_at_be 10 MG dtime_a s_neede d} Amitriptyli Amitriptyli No 1{table Amitriptyl ne HCl 75 ne HCl 75 t_at_be ine HCl 75 MG MG dtime} MG Ambien 5 MG Ambien 5 MG No QD Ambien 5 MG hydrOXYzine hydrOXYzine No 1{table QID hydrOXYzin HCl 25 MG HCl 25 MG t_as_ne e HCl 25 eded} MG traMADol traMADol No traMADol HCl HCl HCl Zolpidem Zolpidem No 1{table QD Zolpidem Tartrate 5 Tartrate 5 t_at_be Tartrate 5 MG MG dtime} MG Lipitor 40 Lipitor 40 No QD Lipitor 40 MG MG MG Metoprolol Metoprolol No 1{table BID Metoprolol Tartrate 25 Tartrate 25 t_with_ Tartrate MG MG food} 25 MG Lisinopril Lisinopril No 1{table Lisinopril 20 MG 20 MG t} 20 MG Vitamin D3 Vitamin D3 No 1{table Vitamin D3 49441 UNIT 12004 UNIT t} 55936 UNIT Pantoprazol Pantoprazol No 1{table QD Pantoprazo e Sodium 20 e Sodium 20 t} le Sodium MG MG 20 MG Ultram 50 Ultram 50 No 1{table BID Ultram 50 MG MG t_as_ne MG eded} Protonix 40 Protonix 40 No 1{table QD Protonix MG MG t} 40 MG Belsomra 10 Belsomra 10 No 1{table QD Belsomra MG MG t_at_be 10 MG dtime_a s_neede d} Amitriptyli Amitriptyli No 1{table Amitriptyl ne HCl 75 ne HCl 75 t_at_be ine HCl 75 MG MG dtime} MG Ambien 5 MG Ambien 5 MG No QD Ambien 5 MG hydrOXYzine hydrOXYzine No 1{table QID hydrOXYzin HCl 25 MG HCl 25 MG t_as_ne e HCl 25 eded} MG traMADol traMADol No traMADol HCl HCl HCl Zolpidem Zolpidem No 1{table QD Zolpidem Tartrate 5 Tartrate 5 t_at_be Tartrate 5 MG MG dtime} MG Lipitor 40 Lipitor 40 No QD Lipitor 40 MG MG MG Metoprolol Metoprolol No 1{table BID Metoprolol Tartrate 25 Tartrate 25 t_with_ Tartrate MG MG food} 25 MG hydrOXYzine hydrOXYzine No 1{table QID hydrOXYzin HCl 25 MG HCl 25 MG t_as_ne e HCl 25 eded} MG Protonix 40 Protonix 40 No 1{table QD Protonix MG MG t} 40 MG Vitamin D3 Vitamin D3 No 1{table Vitamin D3 52285 UNIT 90433 UNIT t} 94824 UNIT Ambien 5 MG Ambien 5 MG No QD Ambien 5 MG Lipitor 40 Lipitor 40 No QD Lipitor 40 MG MG MG Metoprolol Metoprolol No 1{table BID Metoprolol Tartrate 25 Tartrate 25 t_with_ Tartrate MG MG food} 25 MG Lisinopril Lisinopril No 1{table Lisinopril 20 MG 20 MG t} 20 MG traMADol traMADol No traMADol HCl HCl HCl Amitriptyli Amitriptyli No 1{table Amitriptyl ne HCl 75 ne HCl 75 t_at_be ine HCl 75 MG MG dtime} MG Zolpidem Zolpidem No 1{table QD Zolpidem Tartrate 5 Tartrate 5 t_at_be Tartrate 5 MG MG dtime} MG Pantoprazol Pantoprazol No 1{table QD Pantoprazo e Sodium 20 e Sodium 20 t} le Sodium MG MG 20 MG Belsomra 10 Belsomra 10 No 1{table QD Belsomra MG MG t_at_be 10 MG dtime_a s_neede d} Ultram 50 Ultram 50 No 1{table BID Ultram 50 MG MG t_as_ne MG eded} Ultram 50 Ultram 50 No 1{table BID Ultram 50 MG MG t_as_ne MG eded} Protonix 40 Protonix 40 No 1{table QD Protonix MG MG t} 40 MG Lipitor 40 Lipitor 40 No QD Lipitor 40 MG MG MG Pantoprazol Pantoprazol No 1{table QD Pantoprazo e Sodium 20 e Sodium 20 t} le Sodium MG MG 20 MG traMADol traMADol No traMADol HCl HCl HCl Belsomra 10 Belsomra 10 No 1{table QD Belsomra MG MG t_at_be 10 MG dtime_a s_neede d} Amitriptyli Amitriptyli No 1{table Amitriptyl ne HCl 75 ne HCl 75 t_at_be ine HCl 75 MG MG dtime} MG hydrOXYzine hydrOXYzine No 1{table QID hydrOXYzin HCl 25 MG HCl 25 MG t_as_ne e HCl 25 eded} MG Zolpidem Zolpidem No 1{table QD Zolpidem Tartrate 5 Tartrate 5 t_at_be Tartrate 5 MG MG dtime} MG Vitamin D3 Vitamin D3 No 1{table Vitamin D3 48140 UNIT 10498 UNIT t} 51745 UNIT Ambien 5 MG Ambien 5 MG No QD Ambien 5 MG Metoprolol Metoprolol No 1{table BID Metoprolol Tartrate 25 Tartrate 25 t_with_ Tartrate MG MG food} 25 MG Lisinopril Lisinopril No 1{table Lisinopril 20 MG 20 MG t} 20 MG Ultram 50 Ultram 50 No 1{table BID Ultram 50 MG MG t_as_ne MG eded} Protonix 40 Protonix 40 No 1{table QD Protonix MG MG t} 40 MG Lipitor 40 Lipitor 40 No QD Lipitor 40 MG MG MG Pantoprazol Pantoprazol No 1{table QD Pantoprazo e Sodium 20 e Sodium 20 t} le Sodium MG MG 20 MG traMADol traMADol No traMADol HCl HCl HCl Belsomra 10 Belsomra 10 No 1{table QD Belsomra MG MG t_at_be 10 MG dtime_a s_neede d} Amitriptyli Amitriptyli No 1{table Amitriptyl ne HCl 75 ne HCl 75 t_at_be ine HCl 75 MG MG dtime} MG hydrOXYzine hydrOXYzine No 1{table QID hydrOXYzin HCl 25 MG HCl 25 MG t_as_ne e HCl 25 eded} MG Zolpidem Zolpidem No 1{table QD Zolpidem Tartrate 5 Tartrate 5 t_at_be Tartrate 5 MG MG dtime} MG Vitamin D3 Vitamin D3 No 1{table Vitamin D3 68718 UNIT 67175 UNIT t} 23251 UNIT Ambien 5 MG Ambien 5 MG No QD Ambien 5 MG Metoprolol Metoprolol No 1{table BID Metoprolol Tartrate 25 Tartrate 25 t_with_ Tartrate MG MG food} 25 MG Lisinopril Lisinopril No 1{table Lisinopril 20 MG 20 MG t} 20 MG Protonix 40 Protonix 40 No 1{table QD Protonix MG MG t} 40 MG Pantoprazol Pantoprazol No 1{table QD Pantoprazo e Sodium 20 e Sodium 20 t} le Sodium MG MG 20 MG Zolpidem Zolpidem No 1{table QD Zolpidem Tartrate 5 Tartrate 5 t_at_be Tartrate 5 MG MG dtime} MG traMADol traMADol No traMADol HCl HCl HCl Belsomra 10 Belsomra 10 No 1{table QD Belsomra MG MG t_at_be 10 MG dtime_a s_neede d} Metoprolol Metoprolol No 1{table BID Metoprolol Tartrate 25 Tartrate 25 t_with_ Tartrate MG MG food} 25 MG hydrOXYzine hydrOXYzine No 1{table QID hydrOXYzin HCl 25 MG HCl 25 MG t_as_ne e HCl 25 eded} MG Lisinopril Lisinopril No 1{table Lisinopril 20 MG 20 MG t} 20 MG Lipitor 40 Lipitor 40 No QD Lipitor 40 MG MG MG Vitamin D3 Vitamin D3 No 1{table Vitamin D3 65638 UNIT 05892 UNIT t} 38719 UNIT Amitriptyli Amitriptyli No 1{table Amitriptyl ne HCl 75 ne HCl 75 t_at_be ine HCl 75 MG MG dtime} MG Ambien 5 MG Ambien 5 MG No QD Ambien 5 MG Ultram 50 Ultram 50 No 1{table BID Ultram 50 MG MG t_as_ne MG eded} Protonix 40 Protonix 40 No 1{table QD Protonix MG MG t} 40 MG Pantoprazol Pantoprazol No 1{table QD Pantoprazo e Sodium 20 e Sodium 20 t} le Sodium MG MG 20 MG Zolpidem Zolpidem No 1{table QD Zolpidem Tartrate 5 Tartrate 5 t_at_be Tartrate 5 MG MG dtime} MG traMADol traMADol No traMADol HCl HCl HCl Belsomra 10 Belsomra 10 No 1{table QD Belsomra MG MG t_at_be 10 MG dtime_a s_neede d} Metoprolol Metoprolol No 1{table BID Metoprolol Tartrate 25 Tartrate 25 t_with_ Tartrate MG MG food} 25 MG hydrOXYzine hydrOXYzine No 1{table QID hydrOXYzin HCl 25 MG HCl 25 MG t_as_ne e HCl 25 eded} MG Lisinopril Lisinopril No 1{table Lisinopril 20 MG 20 MG t} 20 MG Lipitor 40 Lipitor 40 No QD Lipitor 40 MG MG MG Vitamin D3 Vitamin D3 No 1{table Vitamin D3 32404 UNIT 58934 UNIT t} 28800 UNIT Amitriptyli Amitriptyli No 1{table Amitriptyl ne HCl 75 ne HCl 75 t_at_be ine HCl 75 MG MG dtime} MG Ambien 5 MG Ambien 5 MG No QD Ambien 5 MG Ultram 50 Ultram 50 No 1{table BID Ultram 50 MG MG t_as_ne MG eded} Letrozole Letrozole No 1{table QD Letrozole 2.5 MG 2.5 MG t} 2.5 MG Lisinopril Lisinopril No 1{table Lisinopril 20 MG 20 MG t} 20 MG Pantoprazol Pantoprazol No 1{table QD Pantoprazo e Sodium 20 e Sodium 20 t} le Sodium MG MG 20 MG hydrOXYzine hydrOXYzine No 1{table QID hydrOXYzin HCl 25 MG HCl 25 MG t_as_ne e HCl 25 eded} MG Belsomra 10 Belsomra 10 No 1{table QD Belsomra MG MG t_at_be 10 MG dtime_a s_neede d} Lipitor 40 Lipitor 40 No QD Lipitor 40 MG MG MG Ultram 50 Ultram 50 No 1{table BID Ultram 50 MG MG t_as_ne MG eded} Vitamin D3 Vitamin D3 No 1{table Vitamin D3 83147 UNIT 34769 UNIT t} 60630 UNIT traMADol traMADol No traMADol HCl HCl HCl Amitriptyli Amitriptyli No 1{table Amitriptyl ne HCl 75 ne HCl 75 t_at_be ine HCl 75 MG MG dtime} MG Metoprolol Metoprolol No 1{table BID Metoprolol Tartrate 25 Tartrate 25 t_with_ Tartrate MG MG food} 25 MG Protonix 40 Protonix 40 No 1{table QD Protonix MG MG t} 40 MG Letrozole Letrozole No 1{table QD Letrozole 2.5 MG 2.5 MG t} 2.5 MG Lisinopril Lisinopril No 1{table Lisinopril 20 MG 20 MG t} 20 MG Pantoprazol Pantoprazol No 1{table QD Pantoprazo e Sodium 20 e Sodium 20 t} le Sodium MG MG 20 MG hydrOXYzine hydrOXYzine No 1{table QID hydrOXYzin HCl 25 MG HCl 25 MG t_as_ne e HCl 25 eded} MG Belsomra 10 Belsomra 10 No 1{table QD Belsomra MG MG t_at_be 10 MG dtime_a s_neede d} Lipitor 40 Lipitor 40 No QD Lipitor 40 MG MG MG Ultram 50 Ultram 50 No 1{table BID Ultram 50 MG MG t_as_ne MG eded} Vitamin D3 Vitamin D3 No 1{table Vitamin D3 16532 UNIT 42039 UNIT t} 74233 UNIT traMADol traMADol No traMADol HCl HCl HCl Amitriptyli Amitriptyli No 1{table Amitriptyl ne HCl 75 ne HCl 75 t_at_be ine HCl 75 MG MG dtime} MG Metoprolol Metoprolol No 1{table BID Metoprolol Tartrate 25 Tartrate 25 t_with_ Tartrate MG MG food} 25 MG Protonix 40 Protonix 40 No 1{table QD Protonix MG MG t} 40 MG Lipitor 40 Lipitor 40 No QD Lipitor 40 MG MG MG hydrOXYzine hydrOXYzine No 1{table QID hydrOXYzin HCl 25 MG HCl 25 MG t_as_ne e HCl 25 eded} MG Metoprolol Metoprolol No 1{table BID Metoprolol Tartrate 25 Tartrate 25 t_with_ Tartrate MG MG food} 25 MG Letrozole Letrozole No 1{table QD Letrozole 2.5 MG 2.5 MG t} 2.5 MG Protonix 40 Protonix 40 No 1{table QD Protonix MG MG t} 40 MG Belsomra 10 Belsomra 10 No 1{table QD Belsomra MG MG t_at_be 10 MG dtime_a s_neede d} Vitamin D3 Vitamin D3 No 1{table Vitamin D3 44224 UNIT 59207 UNIT t} 03649 UNIT traMADol traMADol No traMADol HCl HCl HCl Ultram 50 Ultram 50 No 1{table BID Ultram 50 MG MG t_as_ne MG eded} Amitriptyli Amitriptyli No 1{table Amitriptyl ne HCl 75 ne HCl 75 t_at_be ine HCl 75 MG MG dtime} MG Pantoprazol Pantoprazol No 1{table QD Pantoprazo e Sodium 20 e Sodium 20 t} le Sodium MG MG 20 MG Lisinopril Lisinopril No 1{table Lisinopril 20 MG 20 MG t} 20 MG Lipitor 40 Lipitor 40 No QD Lipitor 40 MG MG MG hydrOXYzine hydrOXYzine No 1{table QID hydrOXYzin HCl 25 MG HCl 25 MG t_as_ne e HCl 25 eded} MG Metoprolol Metoprolol No 1{table BID Metoprolol Tartrate 25 Tartrate 25 t_with_ Tartrate MG MG food} 25 MG Letrozole Letrozole No 1{table QD Letrozole 2.5 MG 2.5 MG t} 2.5 MG Protonix 40 Protonix 40 No 1{table QD Protonix MG MG t} 40 MG Belsomra 10 Belsomra 10 No 1{table QD Belsomra MG MG t_at_be 10 MG dtime_a s_neede d} Vitamin D3 Vitamin D3 No 1{table Vitamin D3 51441 UNIT 54000 UNIT t} 97947 UNIT traMADol traMADol No traMADol HCl HCl HCl Ultram 50 Ultram 50 No 1{table BID Ultram 50 MG MG t_as_ne MG eded} Amitriptyli Amitriptyli No 1{table Amitriptyl ne HCl 75 ne HCl 75 t_at_be ine HCl 75 MG MG dtime} MG Pantoprazol Pantoprazol No 1{table QD Pantoprazo e Sodium 20 e Sodium 20 t} le Sodium MG MG 20 MG Lisinopril Lisinopril No 1{table Lisinopril 20 MG 20 MG t} 20 MG Pregabalin Pregabalin No 1{capsu BID Pregabalin 75 MG 75 MG le} 75 MG CeleXA 20 CeleXA 20 No 1{table QD CeleXA 20 MG MG t} MG Letrozole Letrozole No 1{table QD Letrozole 2.5 MG 2.5 MG t} 2.5 MG Meloxicam Meloxicam No 1{table QD Meloxicam 7.5 MG 7.5 MG t} 7.5 MG Letrozole Letrozole No 1{table QD Letrozole 2.5 MG 2.5 MG t} 2.5 MG Pregabalin Pregabalin No 1{capsu BID Pregabalin 75 MG 75 MG le} 75 MG CeleXA 20 CeleXA 20 No 1{table QD CeleXA 20 MG MG t} MG Meloxicam Meloxicam No 1{table QD Meloxicam 7.5 MG 7.5 MG t} 7.5 MG Letrozole Letrozole No 1{table QD Letrozole 2.5 MG 2.5 MG t} 2.5 MG CeleXA 20 CeleXA 20 No 1{table QD CeleXA 20 MG MG t} MG Pregabalin Pregabalin No 1{capsu BID Pregabalin 75 MG 75 MG le} 75 MG Meloxicam Meloxicam No 1{table QD Meloxicam 7.5 MG 7.5 MG t} 7.5 MG Letrozole Letrozole No 1{table QD Letrozole 2.5 MG 2.5 MG t} 2.5 MG CeleXA 20 CeleXA 20 No 1{table QD CeleXA 20 MG MG t} MG Pregabalin Pregabalin No 1{capsu BID Pregabalin 75 MG 75 MG le} 75 MG Meloxicam Meloxicam No 1{table QD Meloxicam 7.5 MG 7.5 MG t} 7.5 MG Letrozole Letrozole No 1{table QD Letrozole 2.5 MG 2.5 MG t} 2.5 MG CeleXA 20 CeleXA 20 No 1{table QD CeleXA 20 MG MG t} MG Pregabalin Pregabalin No 1{capsu BID Pregabalin 75 MG 75 MG le} 75 MG Letrozole Letrozole No 1{table QD Letrozole 2.5 MG 2.5 MG t} 2.5 MG CeleXA 20 CeleXA 20 No 1{table QD CeleXA 20 MG MG t} MG Meloxicam Meloxicam No 1{table QD Meloxicam 7.5 MG 7.5 MG t} 7.5 MG Pregabalin Pregabalin No 1{capsu BID Pregabalin 75 MG 75 MG le} 75 MG Ambien 10 Ambien 10 No QD Ambien 10 MG MG MG Pregabalin Pregabalin No 1{capsu BID Pregabalin 75 MG 75 MG le} 75 MG Letrozole Letrozole No 1{table QD Letrozole 2.5 MG 2.5 MG t} 2.5 MG Meloxicam Meloxicam No 1{table QD Meloxicam 7.5 MG 7.5 MG t} 7.5 MG CeleXA 20 CeleXA 20 No 1{table QD CeleXA 20 MG MG t} MG CeleXA 20 CeleXA 20 No 1{table QD CeleXA 20 MG MG t} MG Pregabalin Pregabalin No 1{capsu BID Pregabalin 75 MG 75 MG le} 75 MG Letrozole Letrozole No 1{table QD Letrozole 2.5 MG 2.5 MG t} 2.5 MG Meloxicam Meloxicam No 1{table QD Meloxicam 7.5 MG 7.5 MG t} 7.5 MG Letrozole Letrozole No 1{table QD Letrozole 2.5 MG 2.5 MG t} 2.5 MG Meloxicam Meloxicam No 1{table QD Meloxicam 7.5 MG 7.5 MG t} 7.5 MG CeleXA 20 CeleXA 20 No 1{table QD CeleXA 20 MG MG t} MG Pregabalin Pregabalin No 1{capsu BID Pregabalin 75 MG 75 MG le} 75 MG Letrozole Letrozole No 1{table QD Letrozole 2.5 MG 2.5 MG t} 2.5 MG Meloxicam Meloxicam No 1{table QD Meloxicam 7.5 MG 7.5 MG t} 7.5 MG CeleXA 20 CeleXA 20 No 1{table QD CeleXA 20 MG MG t} MG Pregabalin Pregabalin No 1{capsu BID Pregabalin 75 MG 75 MG le} 75 MG Letrozole Letrozole No 1{table QD Letrozole 2.5 MG 2.5 MG t} 2.5 MG Meloxicam Meloxicam No 1{table QD Meloxicam 7.5 MG 7.5 MG t} 7.5 MG CeleXA 20 CeleXA 20 No 1{table QD CeleXA 20 MG MG t} MG Pregabalin Pregabalin No 1{capsu BID Pregabalin 75 MG 75 MG le} 75 MG Letrozole Letrozole No 1{table QD Letrozole 2.5 MG 2.5 MG t} 2.5 MG Meloxicam Meloxicam No 1{table QD Meloxicam 7.5 MG 7.5 MG t} 7.5 MG CeleXA 20 CeleXA 20 No 1{table QD CeleXA 20 MG MG t} MG Pregabalin Pregabalin No 1{capsu BID Pregabalin 75 MG 75 MG le} 75 MG Pantoprazol Pantoprazol No 1{table QD Pantoprazo e Sodium 40 e Sodium 40 t} le Sodium MG MG 40 MG Pregabalin Pregabalin No 1{capsu BID Pregabalin 75 MG 75 MG le} 75 MG Meloxicam Meloxicam No 1{table QD Meloxicam 7.5 MG 7.5 MG t} 7.5 MG Ambien 10 Ambien 10 No QD Ambien 10 MG MG MG Letrozole Letrozole No 1{table QD Letrozole 2.5 MG 2.5 MG t} 2.5 MG CeleXA 20 CeleXA 20 No 1{table QD CeleXA 20 MG MG t} MG Pantoprazol Pantoprazol No 1{table QD Pantoprazo e Sodium 40 e Sodium 40 t} le Sodium MG MG 40 MG CeleXA 20 CeleXA 20 No 1{table QD CeleXA 20 MG MG t} MG Pregabalin Pregabalin No 1{capsu BID Pregabalin 75 MG 75 MG le} 75 MG Meloxicam Meloxicam No 1{table QD Meloxicam 7.5 MG 7.5 MG t} 7.5 MG Letrozole Letrozole No 1{table QD Letrozole 2.5 MG 2.5 MG t} 2.5 MG Pantoprazol Pantoprazol No 1{table QD Pantoprazo e Sodium 40 e Sodium 40 t} le Sodium MG MG 40 MG CeleXA 20 CeleXA 20 No 1{table QD CeleXA 20 MG MG t} MG Pregabalin Pregabalin No 1{capsu BID Pregabalin 75 MG 75 MG le} 75 MG Meloxicam Meloxicam No 1{table QD Meloxicam 7.5 MG 7.5 MG t} 7.5 MG Letrozole Letrozole No 1{table QD Letrozole 2.5 MG 2.5 MG t} 2.5 MG Pantoprazol Pantoprazol No 1{table QD Pantoprazo e Sodium 40 e Sodium 40 t} le Sodium MG MG 40 MG CeleXA 20 CeleXA 20 No 1{table QD CeleXA 20 MG MG t} MG Pregabalin Pregabalin No 1{capsu BID Pregabalin 75 MG 75 MG le} 75 MG Meloxicam Meloxicam No 1{table QD Meloxicam 7.5 MG 7.5 MG t} 7.5 MG Letrozole Letrozole No 1{table QD Letrozole 2.5 MG 2.5 MG t} 2.5 MG Linzess 290 Linzess 290 No Linzess mcg mcg 290 mcg Divalproex Divalproex No Divalproex Sodium Sodium Sodium Meloxicam Meloxicam No 1{table QD Meloxicam 7.5 MG 7.5 MG t} 7.5 MG Citalopram Citalopram No 1{table QD Citalopram Hydrobromid Hydrobromid t} Hydrobromi e 20 MG e 20 MG de 20 MG Pantoprazol Pantoprazol No 1{table QD Pantoprazo e Sodium 40 e Sodium 40 t} le Sodium MG MG 40 MG Letrozole Letrozole No 1{table QD Letrozole 2.5 MG 2.5 MG t} 2.5 MG Pregabalin Pregabalin No 1{capsu BID Pregabalin 75 MG 75 MG le} 75 MG CeleXA 20 CeleXA 20 No 1{table QD CeleXA 20 MG MG t} MG Linzess 290 Linzess 290 No Linzess mcg mcg 290 mcg Divalproex Divalproex No Divalproex Sodium Sodium Sodium Meloxicam Meloxicam No 1{table QD Meloxicam 7.5 MG 7.5 MG t} 7.5 MG Citalopram Citalopram No 1{table QD Citalopram Hydrobromid Hydrobromid t} Hydrobromi e 20 MG e 20 MG de 20 MG Pantoprazol Pantoprazol No 1{table QD Pantoprazo e Sodium 40 e Sodium 40 t} le Sodium MG MG 40 MG Letrozole Letrozole No 1{table QD Letrozole 2.5 MG 2.5 MG t} 2.5 MG Pregabalin Pregabalin No 1{capsu BID Pregabalin 75 MG 75 MG le} 75 MG CeleXA 20 CeleXA 20 No 1{table QD CeleXA 20 MG MG t} MG Linzess 290 Linzess 290 No Linzess mcg mcg 290 mcg Divalproex Divalproex No Divalproex Sodium Sodium Sodium Meloxicam Meloxicam No 1{table QD Meloxicam 7.5 MG 7.5 MG t} 7.5 MG Citalopram Citalopram No 1{table QD Citalopram Hydrobromid Hydrobromid t} Hydrobromi e 20 MG e 20 MG de 20 MG Pantoprazol Pantoprazol No 1{table QD Pantoprazo e Sodium 40 e Sodium 40 t} le Sodium MG MG 40 MG Letrozole Letrozole No 1{table QD Letrozole 2.5 MG 2.5 MG t} 2.5 MG Pregabalin Pregabalin No 1{capsu BID Pregabalin 75 MG 75 MG le} 75 MG CeleXA 20 CeleXA 20 No 1{table QD CeleXA 20 MG MG t} MG Linzess 290 Linzess 290 No Linzess mcg mcg 290 mcg Divalproex Divalproex No Divalproex Sodium Sodium Sodium Meloxicam Meloxicam No 1{table QD Meloxicam 7.5 MG 7.5 MG t} 7.5 MG Citalopram Citalopram No 1{table QD Citalopram Hydrobromid Hydrobromid t} Hydrobromi e 20 MG e 20 MG de 20 MG Pantoprazol Pantoprazol No 1{table QD Pantoprazo e Sodium 40 e Sodium 40 t} le Sodium MG MG 40 MG Letrozole Letrozole No 1{table QD Letrozole 2.5 MG 2.5 MG t} 2.5 MG Pregabalin Pregabalin No 1{capsu BID Pregabalin 75 MG 75 MG le} 75 MG CeleXA 20 CeleXA 20 No 1{table QD CeleXA 20 MG MG t} MG Linzess 290 Linzess 290 No Linzess mcg mcg 290 mcg Pregabalin Pregabalin No 1{capsu BID Pregabalin 75 MG 75 MG le} 75 MG Pantoprazol Pantoprazol No 1{table QD Pantoprazo e Sodium 40 e Sodium 40 t} le Sodium MG MG 40 MG Letrozole Letrozole No 1{table QD Letrozole 2.5 MG 2.5 MG t} 2.5 MG Pregabalin Pregabalin No 1{capsu BID Pregabalin 75 MG 75 MG le} 75 MG Letrozole Letrozole No 1{table QD Letrozole 2.5 MG 2.5 MG t} 2.5 MG Linzess 290 Linzess 290 No Linzess mcg mcg 290 mcg Pantoprazol Pantoprazol No 1{table QD Pantoprazo e Sodium 40 e Sodium 40 t} le Sodium MG MG 40 MG Pantoprazol Pantoprazol No 1{table QD Pantoprazo e Sodium 40 e Sodium 40 t} le Sodium MG MG 40 MG Letrozole Letrozole No 1{table QD Letrozole 2.5 MG 2.5 MG t} 2.5 MG Pregabalin Pregabalin No 1{capsu BID Pregabalin 75 MG 75 MG le} 75 MG Linzess 290 Linzess 290 No Linzess mcg mcg 290 mcg Letrozole Letrozole 2021- No 1{table QD Letrozole 2.5 MG 2.5 MG 12-18 t} 2.5 MG 00:00 :00 Letrozole Letrozole 2021- No 1{table QD Letrozole 2.5 MG 2.5 MG 12-18 t} 2.5 MG 00:00 :00 Immunizations Ordered Filled Immunization Date Status Comments Sourc e Immunization Name Name Eric Reyes 2020-12-25 Completed [facility] - (Triam[facility] (Triamcinolone) 14:52:00 [facility] Eric Reyes 2020-12-25 Completed [facility] - (Triamcinolone) (Triamcinolone) 14:52:00 [facility] Kenalog Kenalog 2020-12-25 Completed [facility] - (Triamcinolone) (Triamcinolone) 14:52:00 [facility] Kenalog Kenalog 2020-12-25 Completed [facility] - (Triamcinolone) (Triamcinolone) 14:52:00 [facility] Bupivicaine [place] Bupivicaine [place] 2020-12-25 Completed [facility] - 14:51:00 [facility] Bupivicaine [place] Bupivicaine [place] 2020-12-25 Completed [facility] - 14:51:00 [facility] Bupivicaine [place] Bupivicaine [place] 2020-12-25 Completed [facility] - 14:51:00 [facility] Bupivicaine [place] Bupivicaine [place] 2020-12-25 Completed [facility] - 14:51:00 [facility] Pfizer SARS-CoV-2 2020-11-09 Completed [facility]Pur[facility] 00:00:00 [place] [facility] [place] Pfizer SARS-CoV-2 2020-10-19 Completed [facility] Vacc[facility] (Purple 00:00:00 [place] [facility] [place] 20 mg [place] 20 mg 2020-07-31 [facility] 15:32[facility]00 [facility] [place] 20 mg [place] 20 mg 2020-07-31 Completed [facility] 15:32:00 [facility] [place] 20 mg [place] 20 mg 2020-07-31 Completed [facility] 15:32:00 [facility] [place] 20 mg [place] 20 mg 2020-07-31 Completed [facility] - 15:32:00 [facility] [place] 20 mg [place] 20 mg 2020-07-31 Completed [facility] 15:32:00 [facility] [place] 20 mg [place] 20 mg 2020-07-31 Completed [facility] 15:32:00 [facility] [place] 20 mg [place] 20 mg 2020-07-24 Completed [facility] - 16:23:00 [facility] [place] 20 mg [place] 20 mg 2020-07-24 Completed [facility] - 16:23:00 [facility] [place] 20 mg [place] 20 mg 2020-07-24 [facility]pleted [facility] 16:23:00 [facility] [place] 20 mg [place] 20 mg 2020-07-24 Completed [facility] - 16:23:00 [facility] [place] 20 mg [place] 20 mg 2020-07-24 Completed [facility] - 16:23:00 [facility] [place] 20 mg [place] 20 mg 2020-07-24 Completed [facility] - 16:23:00 [facility] [place]ivicaine [place] Bupivicaine [place] 2020-07-17 Completed [facility] - 13:28:00 [facility] [place] 20 mg [place] 20 mg 2020-07-17 Com[facility] 13:28:00 [facility] [place] Kenalog 2020-07-17 Completed [facility] - (Triamcinolone) (Triamcinolone) 13:28:00 [facility] Bupivicaine [place] Bupivicaine [place] 2020-07-17 Completed [facility] - 13:28:00 [facility] [place] 20 mg [place] 20 mg 2020-07-17 Completed [facility] 13:28:00 [facility] [place] Kenalog 2020-07-17 Completed [facility] - (Triamcinolone) (Triamcinolone) 13:28:00 [facility] Bupivicaine [place] Bupivicaine [place] 2020-07-17 Completed [facility] - 13:28:00 [facility] [place] 20 mg [place] 20 mg 2020-07-17 Completed [facility] 13:28:00 [facility] [place] Kenalog 2020-07-17 Completed [facility] - (Triamcinolone) (Triamcinolone) 13:28:00 [facility] Bupivicaine [place] Bupivicaine [place] 2020-07-17 Completed [facility] - 13:28:00 [facility] [place] 20 mg [place] 20 mg 2020-07-17 Completed [facility] 13:28:00 [facility] [place] Kenalog 2020-07-17 Completed [facility] - (Triamcinolone) (Triamcinolone) 13:28:00 [facility] Bupivicaine [place] Bupivicaine [place] 2020-07-17 Completed [facility] - 13:28:00 [facility] Hyalgan 20 mg Hyalgan 20 mg 2020-07-17 Completed [facility] - 13:28:00 [facility] Kenalog Kenalog 2020-07-17 Completed [facility] (Triamcinolone) (Triamcinolone) 13:28:00 [facility] Bupivicaine [place] Bupivicaine [place] 2020-07-17 Completed [facility] - 13:28:00 [facility] Hyalgan 20 mg Hyalgan 20 mg 2020-07-17 Completed [facility] - 13:28:00 [facility] Kenalog Kenalog 2020-07-17 Completed [facility] (Triamcinolone) (Triamcinolone) 13:28:00 [facility] Vital Signs Vital Name Observation Time Observation Value Comments Source height 2022-02-20 09:20:00 60 [in_i] [facility] weight 2022-02-20 09:20:00 208.1 [lb_av] [facility] temperature 2022-02-20 09:20:00 97.6 [degF] [facility] bmi 2022-02-20 09:20:00 40.64 kg/m2 [facility] oximetry 2022-02-20 09:20:00 97 % [facility] respiratory rate 2022-02-20 09:20:00 17 /min Comm on [facility] blood pressure 2022-02-20 09:20:00 117 mm[Hg] Common [facility] - systolic [facility] blood pressure 2022-02-20 09:20:00 67 mm[Hg] [facility] - diastolic [facility] HEIGHT 2022-02-17 10:51:00 149.9 cm WEIGHT 2022-02-17 10:51:00 94.348 kg HEIGHT 2022-02-17 10:51:00 149.9 cm WEIGHT 2022-02-17 10:51:00 94.348 kg HEIGHT 2022-02-12 08:12:00 149.9 cm WEIGHT 2022-02-12 08:12:00 92.08 kg HEIGHT 2022-02-10 13:52:00 149.9 cm WEIGHT 2022-02-10 13:52:00 92.08 kg HEIGHT 2022-02-12 08:12:00 149.9 cm WEIGHT 2022-02-12 08:12:00 92.08 kg HEIGHT 2022-02-10 13:52:00 149.9 cm WEIGHT 2022-02-10 13:52:00 92.08 kg Systolic blood 2022-01-24 19:42:00 124 mm[Hg] [facility] Diastolic blood 2022-01-24 19:42:00 85 mm[Hg] [facility] Heart rate 2022-01-24 19:42:00 86 /min [facility] acute hospital Respiratory rate 2022-01-24 19:42:00 20 /[facility] Body height 2022-01-24 19:42:00 152.4 cm [facility] Body weight 2022-01-24 19:42:00 93.622 kg [facility] BMI 2022-01-24 19:42:00 40.31 kg/m2 [facility] hospital Oxygen saturation in 2022-01-24 19:42:00 97 /min [facility] Arterial blood by [facility] Pulse oximetry Branch HEIGHT 2022-01-13 10:52:00 149.9 cm WEIGHT 2022-01-13 10:52:00 93.305 kg HEIGHT 2022-01-13 10:52:00 149.9 cm WEIGHT 2022-01-13 10:52:00 93.305 kg Systolic blood 2021-12-25 16:11:00 114 mm[Hg] [facility] Diastolic blood 2021-12-25 16:11:00 73 mm[Hg] [facility] Heart rate 2021-12-25 16:11:00 77 /min [facility] Body temperature 2021-12-25 16:11:00 36.33 Sri [facility] Body height 2021-12-25 16:11:00 152.4 cm [facility] Body weight 2021-12-25 16:11:00 96.208 kg [facility] BMI 2021-12-25 16:11:00 41.42 kg/m2 [facility] height 2021-12-25 13:20:00 60 [in_i] Common [facility] weight 2021-12-25 13:20:00 212.2 [lb_av] [facility] temperature 2021-12-25 13:20:00 97.2 [degF] [facility] bmi 2021-12-25 13:20:00 41.44 kg/m2 [facility] oximetry 2021-12-25 13:20:00 97 % [facility] respiratory rate 2021-12-25 13:20:00 17 /min Comm on [facility] blood pressure 2021-12-25 13:20:00 123 mm[Hg] [facility] - systolic [facility] blood pressure 2021-12-25 13:20:00 74 mm[Hg] [facility] - diastolic [facility] Systolic blood 2021-12-23 18:11:00 112 mm[Hg] Univer sity of pressure [facility] Diastolic blood 2021-12-23 18:11:00 76 mm[Hg] Unive rsity of pressure [facility] Heart rate 2021-12-23 18:11:00 89 /min [facility] Body height 2021-12-23 18:11:00 152.4 cm [facility] Body weight 2021-12-23 18:11:00 99.791 kg [facility] BMI 2021-12-23 18:11:00 42.97 kg/m2 Universi [facility] Oxygen saturation in 2021-12-23 18:11:00 97 /min [facility] of Arterial blood by [facility] Pulse oximetry Branch height 2021-12-23 15:30:00 60 [in_i] Common [facility] weight 2021-12-23 15:30:00 213 [lb_av] [facility] temperature 2021-12-23 15:30:00 97.8 [degF] [facility] bmi 2021-12-23 15:30:00 41.59 kg/m2 [facility] blood pressure 2021-12-23 15:30:00 133 mm[Hg] [facility] - systolic [facility] blood pressure 2021-12-23 15:30:00 87 mm[Hg] [facility] - diastolic [facility] Systolic blood 2021-11-16 20:19:00 127 mm[Hg] [facility] Diastolic blood 2021-11-16 20:19:00 84 mm[Hg] Unive rsity of pressure [facility] Heart rate 2021-11-16 20:19:00 88 /min Universi ty [facility] Body temperature 2021-11-16 20:19:00 37.56 Sri [facility] Respiratory rate 2021-11-16 20:19:00 18 /min [facility] Body height 2021-11-16 20:19:00 152.4 cm Universi ty [facility] Body weight 2021-11-16 20:19:00 99.791 kg Universi ty [facility] BMI 2021-11-16 20:19:00 42.97 kg/m2 [facility] Oxygen saturation in 2021-11-16 20:19:00 96 /min [facility] Arterial blood by [facility] Pulse oximetry [place] height 2021-09-19 08:10:00 60 [in_i] Common [facility] weight 2021-09-19 08:10:00 210.6 [lb_av] [facility] temperature 2021-09-19 08:10:00 98.1 [degF] [facility] bmi 2021-09-19 08:10:00 41.13 kg/m2 [facility] oximetry 2021-09-19 08:10:00 97 % [facility] respiratory rate 2021-09-19 08:10:00 17 /min Comm on [facility] blood pressure 2021-09-19 08:10:00 132 mm[Hg] [facility] - systolic [facility] blood pressure 2021-09-19 08:10:00 70 mm[Hg] [facility] - diastolic [facility] height 2021-08-22 15:15:00 60 [in_i] Common [facility] weight 2021-08-22 15:15:00 208 [lb_av] Common [facility] bmi 2021-08-22 15:15:00 40.62 kg/m2 [facility] - [facility] blood pressure 2021-08-22 15:15:00 174 mm[Hg] [facility] - systolic [facility] blood pressure 2021-08-22 15:15:00 98 mm[Hg] [facility] - diastolic [facility] height 2021-08-22 08:00:00 60 [in_i] Common [facility] weight 2021-08-22 08:00:00 205.8 [lb_av] Common [facility] temperature 2021-08-22 08:00:00 98.0 [degF] [facility] bmi 2021-08-22 08:00:00 40.19 kg/m2 Common [facility] oximetry 2021-08-22 08:00:00 97 % Common [facility] respiratory rate 2021-08-22 08:00:00 17 /min Comm on [facility] blood pressure 2021-08-22 08:00:00 148 mm[Hg] [facility] - systolic [facility] blood pressure 2021-08-22 08:00:00 87 mm[Hg] [facility] - diastolic [facility] Systolic blood 2021-08-21 15:09:00 133 mm[Hg] Univer sity of pressure [facility] Diastolic blood 2021-08-21 15:09:00 87 mm[Hg] Unive rsity of pressure [facility] Heart rate 2021-08-21 15:09:00 87 /min [facility] Respiratory rate 2021-08-21 15:09:00 17 /min Univ ersity [facility] Body height 2021-08-21 15:09:00 152.4 cm [facility] Body weight 2021-08-21 15:09:00 94.887 kg Universi ty [facility] BMI 2021-08-21 15:09:00 40.85 kg/m2 General acute hospital Oxygen saturation in 2021-08-21 15:09:00 95 /min [facility] blood by [facility] Pulse oximetry Branch height 2021-07-24 13:50:00 60 [in_i] [facility] weight 2021-07-24 13:50:00 210.3 [lb_av] Common [facility] temperature 2021-07-24 13:50:00 97.2 [degF] [facility] bmi 2021-07-24 13:50:00 41.07 kg/m2 [facility] oximetry 2021-07-24 13:50:00 94 % Common [facility] respiratory rate 2021-07-24 13:50:00 16 /min Comm on [facility] blood pressure 2021-07-24 13:50:00 132 mm[Hg] [facility] - systolic [facility] blood pressure 2021-07-24 13:50:00 72 mm[Hg] [facility] - diastolic [facility] height 2021-06-17 13:15:00 60 [in_i] Common [facility] weight 2021-06-17 13:15:00 208 [lb_av] Common [facility] temperature 2021-06-17 13:15:00 97.9 [degF] [facility] - [facility] bmi 2021-06-17 13:15:00 40.62 kg/m2 [facility] blood pressure 2021-06-17 13:15:00 126 mm[Hg] [facility] - systolic [facility] blood pressure 2021-06-17 13:15:00 72 mm[Hg] [facility] - diastolic [facility] height 2021-04-12 09:30:00 60 [in_i] [facility] weight 2021-04-12 09:30:00 200 [lb_av] [facility] - [facility] temperature 2021-04-12 09:30:00 97.6 [degF] [facility] - [facility] bmi 2021-04-12 09:30:00 39.06 kg/m2 [facility] - [facility] blood pressure 2021-04-12 09:30:00 120 mm[Hg] [facility] - systolic [facility] blood pressure 2021-04-12 09:30:00 83 mm[Hg] [facility] - diastolic [facility] height 2021-03-12 11:00:00 60 [in_i] [facility] - [facility] weight 2021-03-12 11:00:00 206 [lb_av] [facility] - [facility] temperature 2021-03-12 11:00:00 98.1 [degF] [facility] - [facility] bmi 2021-03-12 11:00:00 40.23 kg/m2 [facility] blood pressure 2021-03-12 11:00:00 124 mm[Hg] [facility] - systolic [facility] blood pressure 2021-03-12 11:00:00 82 mm[Hg] [facility] - diastolic [facility] height 2021-02-19 16:00:00 60 [in_i] [facility] - [facility] weight 2021-02-19 16:00:00 210.7 [lb_av] [facility] - [facility] temperature 2021-02-19 16:00:00 98.2 [degF] [facility] bmi 2021-02-19 16:00:00 41.15 kg/m2 Common [facility] oximetry 2021-02-19 16:00:00 94 % [facility] respiratory rate 2021-02-19 16:00:00 17 /min Comm [facility] - [facility] blood pressure 2021-02-19 16:00:00 135 mm[Hg] [facility] - systolic [facility] blood pressure 2021-02-19 16:00:00 74 mm[Hg] [facility] - diastolic [facility] height 2021-02-07 11:00:00 60 [in_i] [facility] weight 2021-02-07 11:00:00 206 [lb_av] [facility] temperature 2021-02-07 11:00:00 97.4 [degF] [facility] 2021-[facility]-07 11:00:00 40.23 kg/m2 [facility] S [facility] blood pressure 2021-02-07 11:00:00 124 mm[Hg] [facility] - systolic [facility] blood pressure 2021-02-07 11:00:00 80 mm[Hg] [facility] - diastolic [facility] height 2021-01-24 13:00:00 60 [in_i] [facility] weight 2021-01-24 13:00:00 206 [lb_av] [facility] bmi 2021-01-24 13:00:00 40.23 kg/m2 [facility] blood pressure 2021-01-24 13:00:00 126 mm[Hg] [facility] - systolic [facility] blood pressure 2021-01-24 13:00:00 84 mm[Hg] [facility] - diastolic [facility] height 2020-12-25 13:40:00 60 [in_i] [facility] weight 2020-12-25 13:40:00 206 [lb_av] [facility] bmi 2020-12-25 13:40:00 40.23 kg/m2 [facility] blood pressure 2020-12-25 13:40:00 122 mm[Hg] [facility] - systolic [facility] blood pressure 2020-12-25 13:40:00 82 mm[Hg] [facility] - diastolic [facility] Systolic blood 2022-02-17 10:51:00 129 mm[Hg] [facility] Diastolic blood 2022-02-17 10:51:00 82 mm[Hg] [facility] Heart rate 2022-02-17 10:51:00 81 /min [facility] Body temperature 2022-02-17 10:51:00 37.11 Sri [facility] Body height 2022-02-17 10:51:00 149.9 cm [facility] Body weight 2022-02-17 10:51:00 94.348 kg [facility] BMI 2022-02-17 10:51:00 42.01 kg/m2 [facility] Respiratory rate 2022-02-12 10:00:00 31 /min [facility] Oxygen saturation in 2022-02-12 10:00:00 99 /min [facility] Arterial blood by Medical Ce [facility]ter Pulse oximetry Systolic blood 2021-12-25 13:14:37 108 mm[Hg] Univer sity of pressure [facility] on [facility] Diastolic blood 2021-12-25 13:14:37 65 mm[Hg] Unive rsity of pressure [facility] on [facility] Heart rate 2021-12-25 13:14:37 79 /min [facility] Braden [facility] on [facility] Body temperature 2021-12-25 13:14:37 36.78 Sri Univ ersity [facility] on [facility] Respiratory rate 2021-12-25 13:14:37 20 /min [facility] [place] [facility] Body weight 2021-12-25 13:14:37 96.7 kg [facility] MD [facility] on [facility] BMI 2021-12-25 13:14:37 44.57 kg/m2 [facility] MD [facility] on [facility] Oxygen saturation in 2021-12-25 13:14:37 99 /min University Arterial blood by [facility] Pulse oximetry [facility] Body height 2021-06-26 17:20:00 147.3 cm [facility] MD [facility] on [facility] Heart Rate 2020-06-06 20:47:00 [facility] Respitory Rate 2020-06-06 20:47:00 [facility] Height 2020-06-06 20:47:00 149.86 cm [facility] Weight 2020-06-06 20:47:00 [facility] BMI Calculated 2020-06-06 20:47:00 [facility] Systolic (mm Hg) 2020-06-06 20:47:00 Stu rial [facility] Diastolic (mm Hg) 2020-06-06 20:47:00 Mem orial [facility] Diastolic (mm Hg) 2013-01-05 21:00:00 Mem o[facility] Systolic (mm Hg) 2013-01-05 21:00:00 Stu rial [facility] Diastolic (mm Hg) 2013-01-05 20:15:00 Mem o[facility] Systolic (mm Hg) 2013-01-05 20:15:00 Stu [facility] Diastolic (mm Hg) 2013-01-05 20:00:00 Mem orial [facility] Systolic (mm Hg) 2013-01-05 20:00:00 Stu rial [facility] Respitory Rate 2013-01-05 17:45:00 [facility] Respitory Rate 2013-01-05 17:30:00 [facility] Respitory Rate 2013-01-05 17:15:00 [facility] Temperature Oral (F) 2012-12-29 19:23:00 98 F [facility] Heart Rate 2012-12-29 19:23:00 [facility] Height 2012-12-29 19:02:00 157.48 cm [facility] Weight 2012-12-29 19:02:00 [facility] Procedures Procedure Date / Time Performing Source Performed Clinician REPORT OF PROCEDURE - ENDOSCOPY 2022-02-[address] [facility] URL 09:40:32 [facility] ESOPHAGOGASTRODUODENOSCOPY 2022-02-12 [facility] 09:25:00 [facility] EKG-SCANNED 2022-02-[address] [facility] 00:00:00 [facility] CBC W/PLT+MANUAL DIFF 2022-02-[address] [facility] 10[facility]57:00 [facility] BASIC METABOLIC PANEL 2022-02-[address] [facility] 10:57:00 [facility] CBC WITH PLATELET COUNT + MANUAL 2022-02-[address] [facility] DIFF 10:57:00 [facility] (MANUAL DIFFERENTIAL) 2022-02-[address] [facility] 10:57:00 [facility] SLEEP STUDY DATA REPORT 2022-01-21 Doctor [facility] of 05:01:00 Unassigned, No [facility] MAMMOGRAPHY 2022-01-[address] [facility] 00:00:00 [facility] COLONOSCOPY 2022-01-[address] [facility] 00:00:00 [facility] PHYSICIAN ORDERS 2022-01-01 [facility] of 05:01:00 Unassigned, No [facility] COMPLETE BLOOD COUNT W/ 2021-12-25 Irene Sherman [facility] of DIFFERENTIAL 12:13:28 [facility] MD Marry childers [facility] COMPREHENSIVE METABOLIC PANEL 2021-12-25 [facility] 12:13:28 [facility] MD Marry childers [facility] LACTATE DEHYDROGENASE 2021-12-25 Irene Sherman [facility] 12:13[facility]28 [facility] MAGNESIUM LEVEL 2021-12-25 Irene Sherman Ava of 12:13:28 [facility] MD Marry childers [facility] PHOSPHORUS LEVEL 2021-12-25 Irene Sherman of 12:13:28 [facility] MD Marry childers [facility] URIC ACID 2021-12-25 Irene Sherman Ava of 12:13:28 [facility] MD [facility] VITAMIN D 25 HYDROXY LEVEL 2021-12-[facility] 12:13:[address] [facility] [address] [facility] Results CBC 2021-12-25 [facility] of 12:13:[address] [facility] [address] [facility] MANUAL DIFFERENTIAL 2021-12-[address] [facility] o f 12:13:28 [facility] alvarado [facility] GLUCOSE LEVEL 2021-12-25 [facility] of 12:13:28 [facility] BLOOD UREA NITROGEN 2021-12-25 [facility] o f 12:13:28 [facility] ELECTROLYTE PANEL 2021-12-25 [facility] of 12:13:28 [facility] SERUM CREATININE 2021-12-25 [facility] of 12:13:28 [facility] .GLOMERULAR FILTRATION RATE 2021-12-25 [facility] ersity of 12:13:28 [facility] alvarado [facility] CALCIUM LEVEL TOTAL 2021-12-25 [facility] o f 12:13:28 [facility] ALBUMIN LEVEL 2021-12-25 [facility] of 12:13:28 [facility] alvarado [facility] ALKALINE PHOSPHATASE 2021-12-25 [facility] of 12:13:[address] [facility] [address] [facility] ALANINE AMINOTRANSFERASE 2021-12-25 [facility] ity of 12:13:[address] [facility] [address] [facility] ASPARTATE AMINOTRANSFERASE 2021-12-25 [facility] 12:13:[address] [facility] [address] [facility] TOTAL PROTEIN 2021-12-25 [facility] of 12:13:[address] [facility] [address] [facility] FRACTIONATED BILIRUBIN 2021-12-25 [facility] of 12:13:28 [facility] EXTERNAL PROVIDER RECORDS 2021-12-06 Doctor [facility] wes of 05:01:00 Unassigned, No [facility] AUTHORIZATION TO RELEASE PHI TO 2021-11-25 [facility] 05:01:00 Unassigned, No [facility] XR KNEE 3 VW RIGHT 2021-11-16 Ana Singer [facility] 20:54:01 [facility] CONSENT/REFUSAL FOR DIAGNOSIS AND 2021-11-16 [facility] 20:14:52 Unassigned, No [facility] EXTERNAL PROVIDER RECORDS 2021-10-14 Doctor [facility] of 05:01:00 Unassigned, No [facility] REFERRAL- REQUEST/RESPONSE 2021-09-04 Doctor Goodwin rsity of 05:01:00 Unassigned, No [facility] ASSIGNMENT OF BENEFITS 2021-08-22 Doctor [facility] y of 14:21:18 Unassigned, No [facility] US BREAST COMPLETE BILATERAL 2021-07-05 Irene Sherman [facility] versity of 19:44:50 Opal Braden childers [facility] US CHEST/INFRACLAV 2021-07-05 Irene Sherman Ava of 19:44:50 Opal Braden childers [facility] MAMMO DIGITAL DIAGNOSTIC BILATERAL 2021-07-05 Marisa Sherman [facility] W YUAN 19:12:11 Opal Braden childers [facility] MRI BRAIN W WO CONTRAST 2021-06-26 Irene Sherman [facility] ty of 18:14:23 Opal Braden childers [facility] COMPLETE BLOOD COUNT W/ 2021-06-19 Summersbryan Heredia [facility] ty of DIFFERENTIAL 15:59:42 Justin childers [facility] COMPREHENSIVE METABOLIC PANEL 2021-06-19 Summersbryan Heredia, iversity of 15:59:42 Justin childers [facility] MAGNESIUM LEVEL 2021-06-19 [facility] 15[facility]59:42 [facility] PHOSPHORUS LEVEL 2021-06-19 [facility] 15:59:42 Justin Tuttle [facility] LACTATE DEHYDROGENASE 2021-06-19 [facility] 15:59:42 Justin Tuttle [facility] VITAMIN D 25 HYDROXY LEVEL 2021-06-19 Buddy Smith rsity of 15:59:42 Justin childers [facility] Results CBC 2021-06-19 [facility] of 15:59:42 Justin childers [facility] MANUAL DIFFERENTIAL 2021-06-19 [facility] o f 15:59:42 Justin childers [facility] GLUCOSE LEVEL 2021-06-19 [facility] of 15:59:42 Justin childers [facility] BLOOD UREA NITROGEN 2021-06-19 [facility] o f 15:59:42 Justin childers [facility] ELECTROLYTE PANEL 2021-06-19 [facility] of 15:59:42 Justin Tuttle [facility] SERUM CREATININE 2021-06-19 [facility] 15:59:[address] [facility] .GLOMERULAR FILTRATION RATE 2021-06-19 [facility] ersity of 15:59:42 [facility] CALCIUM LEVEL TOTAL 2021-06-19 [facility] o f 15:59:42 [facility] ALBUMIN LEVEL 2021-06-19 [facility] of 15:59:42 [facility] ALKALINE PHOSPHATASE 2021-06-19 [facility] of 15:59:42 Justin childers [facility] ALANINE AMINOTRANSFERASE 2021-06-19 [facility] ity of 15:59:42 Justin childers [facility] ASPARTATE AMINOTRANSFERASE 2021-06-19 [facility] rsity of 15:59:42 Justin childers [facility] TOTAL PROTEIN 2021-06-19 [facility] of 15:59:42 Justin childers [facility] FRACTIONATED BILIRUBIN 2021-06-19 [facility] 15:59:42 [facility] COMPLETE BLOOD COUNT W/ 2021-03-06 [facility] of DIFFERENTIAL 12:59:17 [facility] COMPREHENSIVE METABOLIC PANEL 2021-03-06 [facility] iversity of 12:59:17 [facility] MAGNESIUM LEVEL 2021-03-06 [facility] 12:59:17 Justin childers [facility] PHOSPHORUS LEVEL 2021-03-06 [facility] 12:59:17 Justin childers [facility] LACTATE DEHYDROGENASE 2021-03-06 [facility] 12:59:17 Justin childers [facility] VITAMIN D 25 HYDROXY LEVEL 2021-03-06 [facility] rsity of 12:59:17 Justin childers [facility] [place] Results CBC 2021-03-06 [facility] 12:59:17 Justin [facility] [place] MANUAL DIFFERENTIAL 2021-03-06 [facility] o f 12:59:17 Justin childers [facility] GLUCOSE LEVEL 2021-03-06 [facility] 12:59:17 Justin childers [facility] BLOOD UREA NITROGEN 2021-03-06 [facility] o f 12:59:17 Justin childers [facility] ELECTROLYTE PANEL 2021-03-06 [facility] 12:59:17 Justin childers [facility] SERUM CREATININE 2021-03-06 [facility] 12:59:17 [facility] .GLOMERULAR FILTRATION RATE 2021-03-06 [facility] ersity of 12:59:17 Justin childers [facility] CALCIUM LEVEL TOTAL 2021-03-06 [facility] o f 12:59:17 Justin childers [facility] ALBUMIN LEVEL 2021-03-06 [facility] 12:59:17 Justin childers [facility] ALKALINE PHOSPHATASE 2021-03-06 [facility] 12:59:17 Justin childers [facility] ALANINE AMINOTRANSFERASE 2021-03-06 [facility] ity of 12:59:17 Justin childers [facility] ASPARTATE AMINOTRANSFERASE 2021-03-06 [facility] rsity of 12:59:17 [facility] TOTAL PROTEIN 2021-03-06 Melina Heredia Ava of 12:59:17 Justin childers [facility] Center FRACTIONATED BILIRUBIN 2021-03-06 [facility] 12:59:17 Justin childers [facility] Center Other Repair of Urinary Stress 2013-01-05 [facility] 05:00:00 Sling operation for stress 2013-01-05 [facility] incontinence (eg, fascia or 05:00:00 synthetic) Abdominal hysterectomy 1993-03-23 [facility] 00:00:00 TL - Tubal ligation 1990-03-23 [facility] 00:00:00 Abdominoplasty [facility] Lumpectomy [facility] Plan of Care Planned Activity Planned Date Details Comments Source Future Scheduled 2032-01-[address] [facility] 00:[facility] [facility] colon (procedure) [code = 926255432] Future Scheduled 2032-01-[address] [facility] 00:00:[address] [facility] colon (procedure) [code = 014183250] Future Scheduled 2025-01-[address] 00:00:00 (procedure) [code = [facility] 97049294] Future Scheduled 2024-01-[address] [facility] 00:00:[address] [facility] breast (procedure) [code = 925425135] Future Scheduled 2023-02-[address] [facility] Test 00:00:00 Counseling and Medical Cente r Screening (12+) [code = Tobacco Cessation Counseling and Screening (12+)] Future Scheduled 2021-12-26 COVID-19 [facility] 06:39:11 (3 - Pfizer risk MD [facility] series) [code = Center COVID-19 Vaccination (3 - Pfizer risk series)] Future Scheduled 2021-11-21 INFLUENZA VACCINE (#1) [facility] 00:00:00 [code = INFLUENZA Medical Ce nter VACCINE (#1)] Future Scheduled 2021-04-11 COVID-19 VACCINE (3 - [facility] 00:00:00 Booster for Pfizer Medical C enter series) [code = COVID-19 VACCINE (3 - Booster for Pfizer series)] Future Scheduled 2021-03-[address] [facility] Test 00:00:00 (12+) [code = Medical Center DEPRESSION SCREENING (12+)] Future Scheduled 2017 SHINGLES VACCINES ([address] [facility] Test 00:00:00 of 2) [code = SHINGLES Medic al Center VACCINES (1 of 2)] Future Scheduled 1988-01-[address] [facility] [facility] 00:00:00 malignant neoplasm of Medica l Center cervix (procedure) [code = 090308899] Future Scheduled 1986 DTAP/TDAP/TD VACCINES [facility] 00:00:00 (1 - Tdap) [code = Medical C enter DTAP/TDAP/TD VACCINES (1 - Tdap)] Future Scheduled 1985 HEPATITIS C SCREENING [facility] 00:00:00 [code = HEPATITIS C Medical Center SCREENING] Future Scheduled [address] [facility] Test 00:00:00 (combo) [code = CT Medical C enter Colonography (combo)] Future Scheduled [address] [facility] 00:00:00 malignant neoplasm of Medica l Center colon (procedure) [code = 842987398] Future Scheduled [address] [facility] 00:00:00 malignant neoplasm of Medica l Center colon (procedure) [code = 076661689] Future Scheduled 1967 Sigmoidoscopy [code = [facility] 00:00:00 Sigmoidoscopy] [facility] r Encounters Start End Encounter Admission Attending Care Care Encounter Source Date/Time Date/Time Type Type Clinicians Facility Department ID 2022-02-19 Outpatient Veliz, [facility] [id number] Common 08:20:00 Ajay 58347 [facility] 2021-12-26 Outpatient Veliz, [facility] [id number] Common 16:28:00 Ajay [facility] 2021-12-25 Outpatient Veliz, [facility] [id number] Common 08:22:00 Ajay [facility] 2021-12-24 Outpatient Veliz, STLMLC STLMLC [id number] Common 11:47:02 Ajay [facility] 2021-12-20 Outpatient Veliz, STLMLC STLMLC [id number] Common 12:04:00 Ajay [facility] 2021-11-19 Outpatient Veliz, STLMLC STLMLC [id number] Common 08:21:00 Ajay [facility] 2021-10-16 Outpatient Veliz, STLMLC STLMLC [id number] Common 09:06:00 Ajay [facility] 2021-09-17 Outpatient Veliz, STLMLC STLC [id number] Common 10:14:00 Ajay [facility] 2021-08-23 Outpatient Veliz, STLMLC STLMLC [id number] Common 10:21:01 Ajay [facility] 2021-08-22 Outpatient Veliz, STLMLC STLMLC [id number] Common 10:54:00 Ajay [facility] 2021-08-21 Outpatient Veliz, STLMLC STLMLC [id number] Common 09:10:00 Ajay [facility] 2021-08-01 Outpatient Veilz, STLMLC STLMLC [id number] Common 11:57:01 Ajay [facility] 2021-07-25 Outpatient Veliz, STLMLC STLMLC [id number] Common 15:08:00 Ajay [facility] 2021-07-16 Outpatient Veliz, STLMLC STLMLC [id number] Common 09:32:00 Ajay [facility] 2021-06-19 Outpatient Veliz, STLMLC STLMLC [id number] Common 08:27:01 Ajay [facility] 2021-06-14 Outpatient Veliz, STLMLC STLMLC [id number] Common 08:19:00 Ajay [facility] 2021-04-17 Outpatient Veliz, STLMLC STLMLC [id number] Common 14:38:38 Ajay [facility] 2021-04-17 Outpatient Veliz, STLMLC STLMLC [id number] Common 14:30:47 Ajay [facility] 2021-04-17 Outpatient Veliz, STLMLC STLMLC [id number] Common 14:29:36 Ajay [facility] 2021-04-17 Outpatient Veliz, STLMLC STLMLC [id number] Common 14:27:52 Ajay [facility] 2021-04-17 Outpatient STLMLC STLMLC [id number] Common 14:27:12 [id number] [facility] 2021-04-17 Outpatient STLMLC STLMLC [id number] Common 13:14:53 [id number] [facility] 2021-04-17 Outpatient STLMLC STLMLC [id number] Common 13:11:26 [id number] [facility] 2021-04-17 Outpatient Veliz, STLMLC STLMLC [id number] Common 12:53:41 Ajay 91051 [facility] 2021-04-17 Outpatient Veliz, STLMLC STLMLC [id number] Common 12:23:02 Ajay 86925 [facility] 2021-04-17 Outpatient Veliz, STLMLC STLMLC [id number] Common 12:20:51 Ajay 78923 [facility] 2021-04-17 Outpatient STLMLC STLMLC [id number] Common 12:18:12 93310 [facility] 2021-04-17 Outpatient Millender, STLMLC STLMLC [id number] Common 11:45:32 Reema 94666 [facility] 2021-04-17 Outpatient Millender, STLMLC STLMLC [id number] Common 11:21:05 Reema 45882 [facility] 2021-04-[address] [facility] [id number] Common 11:08:39 Reema 54801 [facility] 2021-04-[address] [facility] [id number] Common 11:07:44 Reema 05923 [facility] 2021-01-18 [facility] [id number] Univers 08:20:19 MEGHANN malcolm [facility] 2021-01-15 Outpatient SYSTEM, MDA MDA [id number] 11:13:43 PROVIDER Yosi childers 2019-09-27 Outpatient SYSTEM, [facility] MDA [id number] 14:51:57 PROVIDER Yosi childers 2022-02-25 2022-02-25 (TEL) [facility] [id number] Co mmon 00:00:00 00:00:00 [facility] 2022-02-24 2022-02-24 Telephone [facility] 1.2.840.114 [id number] Univers 00:00:00 00:00:00 Luis ABBOTT 350.1.13.10 [facility] 4.2.7.2.686 Aretha NEW [id number] [address] 2022-02-24 2022-02-24 (WEB) [facility] [id number] Co mmon 00:00:00 00:00:00 Spirit [facility] 2022-02-20 2022-02-[address] [facility] [id number] Co mmon 00:00:00 00:00:00 VISIT [facility] LEVEL 4 [facility] 2022-02-19 2022-02-19 Outpatient ROBERT BOWMAN [facility] [id number] 00:00:00 00:00:00 [facility] 2022-02-17 2022-02-17 Office Gr[facility] [id number] 10:30:00 11:45:47 Visit [facility] 2022-02-172022-02-17 Outpatient EL GRACIE, [facility] [id number] 10:27:18 11:45:47 [facility] 2022-02-16 2022-02-16 [facility] [id number] Co mmon 00:00:00 00:00:00 [facility] 2022-02-12 2022-02-12 Outpatient EL GRACIE, [facility] Surgery [id number] [facility]SL 07:13:00 10:18:00 [place] 2022-02-12 2022-02-12 [facility] [id number] 07:13:00 10:18:00 [facility] 2022-02-12 2022-02-12 Anesthesia Bernabe Starkey [facility] [id number] 09:25:00 09:40:00 Event Wali Miles [facility] 2022-02-12 2022-02-12 Surgery [facility] [id number] 09:00:00 09:30:00 [facility] 2022-02-12 2022-02-12 (TEL) [facility] [id number] Co mmon 00:00:00 00:00:00 [facility] 2022-02-11 2022-02-11 Outpatient EL SLSL SLSL [id number] [facility] 10:51:46 10:51:46 2022-02-11 2022-02-11 [facility] [id number] 10:00:00 10:00:00 Encounter [facility] 2022-02-10 2022-02-10 Travel [facility] [id number] [facility] 00:00:00 00:00:00 [facility] 2022-02-06 2022-02-06 Telephone KAN Rodgers 1.2.840.114 [id number] Univers 00:00:00 00:00:00 [facility] 350.1.13.10 ity of [place] 4.2.7.2.686 Benjamin as OSIEL?BLEA [id number] [address] 2022-01-27 2022-01-27 Telephone [facility] 1.2.771.309 [id number] Univers 00:00:00 00:00:00 Veronika GRANDIN 350.1.13.10 ity of [facility] 4.2.7.2.686 [place] [id number] [address] 2022-01-24 2022-01-24 [facility] [id number] Univers 14:40:00 15:10:36 VERONIKA ity o f [facility] 2022-01-24 2022-01-24 Office [facility] 1.2.840.114 [id number] Univers 14:40:00 15:10:36 Visit Veronika GRANDIN 350.1.13.10 ity of [facility] 4.2.7.2.686 [place] [phone] [address] 2022-01-24 2022-01-24 Refill FigueroaSHIPROCK[facility] 1.2.840.114 [id number] Univers 00:00:00 00:00:00 [employer] 350.1.13.10 it y [facility] 4.2.7.2.686 Benjamin as OSIEL?BLEA [id number] [address] 2022-01-21 2022-01-22 Hose Sprayer Annamaria [facility] Sleep Lab [facility] 1.2 .840.114 [id number] Univers 09:00:00 07:30:28 Visit Luis An 350.1.13. 10 ity of [facility] 4.2.7.2.686 [place] [id number] [address] 2022-01-22 2022-01-[address] [facility] [id number] [facility] 00:00:00 00:00:00 [facility] 2022-01-21 2022-01-21 Outpatient R LUIS AN [facility] [id number] Univers 09:00:00 09:00:00 KATELYNLUIS DIXON yun [facility] 2022-01-21 2022-01-21 Orders Doctor ONEIDA 1.2.840.114 [id number] Univers 00:00:00 00:00:00 Only Unassigned, GINI 350.1.13.10 ity of [place] [facility] 4.2.7.2.686 Benjamin as [id number] [address] 2022-01-15 2022-01-15 Outpatient R MASTER ANMTKun [facility] [id number] Univers 13:20:00 13:20:00 [facility] DIXONMTKun [facility] 2022-01-14 2022-01-14 (TEL) [facility] [id number] Co mmon 00:00:00 00:00:00 [facility] 2022-01-13 2022-01-13 [facility] [id number] [facility] 10:00:00 12:27:39 Visit [facility] 2022-01-13 2022-01-13 Outpatient EL GRACIE [facility] [id number] [facility] 09:56:47 12:27:39 [facility] 2022-01-01 2022-01-01 Hose Sprayer [place] Lab Main [facility] 1.2.8 40.114 [id number] Univers 07:30:00 07:45:00 Visit Abdon Arias 350.1.13.10 ity of [place].2.7.2.[place] [id number] Va dical [address] 2022-01-01 2022-01-01 Outpatient R MARY [facility] [id number] Univers 07:30:00 07:30:00 ABDON malcolm [facility] 2022-01-01 2022-01-01 Orders Doctor MOHAMUD 1.2.840.114 [id number] Univers 00:00:00 00:00:00 Only Unassigned, GINI 350.1.13.[address] [place] [facility] 4.2.7.2.686 Benjamin as [phone] [facility] [address] [place] 2021-12-31 2021-12-31 Telephone Figueroa [facility] 1.2.307.785 [id number] Univers 00:00:00 00:00:00 [employer] 350.1.13.10 it y of [place] 4.2.7.2.686 Benjamin as OSIEL?BLEA [phone] Va dical ADORE [address] [place] [facility] OFF[facility] 2021-12-26 2021-12-26 (TEL) [facility] [id number] Co mmon 00:00:00 00:00:00 Spirit - [facility] 2021-12-25 2021-12-25 Outpatient R CHARITY FLORES [facility] [id number] Univers 10:45:00 12:18:18 ity of [facility] 2021-12-25 2021-12-25 Office Charity Flores [facility] 1.2.840.114 [id number] Univers 10:45:00 12:18:18 Visit E SPECIALTY 350.1.13.10 ity of [place] 4[place]2.7.2.686 [place] CENTER AT [phone] [place] dicnils ROJO [address] [place] [address] 2021-12-25 2021-12-25 Office Melina Heredia, 1.2.840.1 [id number] [facility] 08:20:00 09:03:05 Visit Justin 84589.1.1 ity of 3.412.2.7 [place] .3.172785 .8 [facility] 2021-12-25 2021-12-25 Outpatient ROBERT HEREDIA MDA MDA [id number] 07:15:36 09:03:05 JUSTIN childers 2021-12-25 2021-12-25 Outpatient ROBERT SHERMAN MDA MDA [id number] 06:59:45 07:05:58 IRENE childers 2021-12-25 2021-12-25 Travel 1.2.840.1 1.2.240.191 [id number] Univers 00:00:00 00:00:00 53623.1.1 350.1.13.41 ity of 3.412.2.7 2.2.7.3.698 [place] .3.053707 084.8 .8 [facility] 2021-12-25 2021-12-[address] [facility] [id number] Co mmon 00:00:00 00:00:00 VISIT EST Spir it PT LEVEL 3 - [facility] 2021-12-23 2021-12-23 Outpatient R CHRIS RODGERS [facility] [id number] Univers 13:00:00 14:14:27 CHRIS RODGERS ity of [facility] 2021-12-23 2021-12-23 Office Amparo Oropeza [facility] 1.2.840.114 [id number] Univers 13:00:00 14:14:27 Visit Chris Rodgers [facility] 350.1.13. 10 ity of [place] 4.2.7.2.686 Benjamin as OSIEL?BLEA [phone] [place] [address] MEDICAL OFFICE [facility] 2021-12-23 2021-12-[address] [facility] [id number] Co mmon 00:00:00 00:00:00 VISIT Spirit ESTAB PT - CHI LEVEL 4 [facility] 2021-12-16 2021-12-16 (TEL) [facility] [id number] Co mmon 00:00:00 00:00:00 Spirit - [facility] 2021-12-06 2021-12-06 Orders Doctor MOHAMUD 1.2.840.114 [id number] Univers 00:00:00 00:00:00 Only Unassigned, GINI 350.1.13.[address] [place] [facility] 4.2.7.2.686 Benjamin as [id number] [address] 2021-12-02 2021-12-02 Glenny Sherman 1.2.840.1 [id number] Univers 00:00:00 00:00:00 Irene 41953.1.1 ity of [place] 3.412.2.7 [place] .3.474160 .8 [facility] 2021-12-02 2021-12-02 (TEL) [facility] [id number] Co mmon 00:00:00 00:00:00 [facility] 2021-12-02 2021-12-02 (TEL) [facility] [id number] Co mmon 00:00:00 00:00:00 [facility] 2021-11-29 2021-11-29 Telephone lGenn 1.2.840.1 [id number] Univers 00:00:00 00:00:00 Bella Dunn 89715.1.1 ity of 3.412.2.7 [place] .3.989914 MD Gupta8 [facility] 2021-11-25 2021-11-25 Orders Doctor ONEIDA 1.2.840.114 [id number] Univers 00:00:00 00:00:00 Only Unassigned, GINI 350.1.13.[address] [place] [facility] 4.2.7.2.686 [facility] [id number] [facility] [address] 2021-11-16 2021-11-16 Emergency X Ana SINGER [facility] ERT [id number] Univers 15:20:00 16:42:00 ity of [facility] 2021-11-16 2021-11-16 Emergency Ana Singer [facility] 1.2.840.114 [id number] Univers 15:20:00 16:42:00 Katalina ABBOTT 350.1.13.10 i ty of [place] 4.2.7.2.686 [facility] [phone] [facility] [address] 2021-11-15 2021-11-15 Telephone Charity Flores [facility] 1.2.840.114 [id number] Univers 00:00:00 00:00:00 E HEALTH 350.1.13.10 it y of CANC[place] 4.2.7.2.686 [facility] - [phone] Med ical [facility] [address] 2021-11-06 2021-11-06 Outpatient R LUIS AN [facility] [id number] Univers 16:00:00 16:00:00 LUIS AN ity of [facility] 2021-10-29 2021-10-29 Refhanh Sherman, 1.2.840.1 [id number] Univers 00:00:00 00:00:00 Irene 37677.1.1 ity of [place] 3.412.2.7 [place] .3.933634 .8 [facility] 2021-10-29 2021-10-29 Telephone Glenn, 1.2.840.1 [id number] Univers 00:00:00 00:00:00 Bella Mona 00145.1.1 ity of 3.412.2.7 [place] .3.943540 .8 [facility] 2021-10-28 2021-10-28 (TEL) [facility] [id number] Co mmon 00:00:00 00:00:00 [facility] 2021-10-19 2021-10-19 Outpatient R LUIS AN [facility] [id number] Univers 20:00:00 20:00:00 JUVE [facility] 2021-10-18 2021-10-18 Outpatient R JUVE [facility] [id number] Univers 07:30:00 07:30:00 JUVE [facility] 2021-10-15 2021-10-15 Telephone [facility] 1.2.840.114 [id number] Univers 00:00:00 00:00:00 Luis ABBOTT 350.1.13.10 ity of [place].7.2.686 [place] [phone] Va dical NAL [address] [facility] 2021-10-14 2021-10-14 Orders Doctor ONEIDA 1.2.840.114 [id number] Univers 00:00:00 00:00:00 Only Unassigned, GINI 350.1.13.[address] [place] [facility] 4.2.7.2.686 Benjamin as [id number] [place] [address] [place] 2021-10-01 2021-10-01 (WEB) [facility] [id number] Co mmon 00:00:00 00:00:00 Spirit [facility] 2021-09-27 2021-09-27 Orders Sherman, 1.2.840.1 [id number] Univers 00:00:00 00:00:00 Only Irene 33763.1.1 ity of [place] 3.412.2.7 [place] .3.818545 MD Gupta8 [facility] 2021-09-27 2021-09-27 Telephone Carnew, 1.2.840.1 [id number] Univers 00:00:00 00:00:00 Bella Dunn 21970.1.1 ity of 3.412.2.7 [place] .3.094528 MD Gupta8 [facility] 2021-09-27 2021-09-27 Orders Sherman, 1.2.840.1 [id number] Univers 00:00:00 00:00:00 Only Irene 20185.1.1 ity of [place] 3.412.2.7 [place] .3.354842 MD Gupta8 [facility] 2021-09-27 2021-09-27 Orders Sherman, 1.2.840.1 [id number] Univers 00:00:00 00:00:00 Only Irene 19629.1.1 ity of [place] 3.412.2.7 [place] .3.672588 MD Gupta8 [facility] 2021-09-19 2021-09-19 OFFICE STLC STLC [id number] Co mmon 00:00:00 00:00:00 VISIT Spirit ESTAB PT - CHI LEVEL 4 [facility] 2021-09-11 2021-09-11 (TEL) STLMLC STLMLC [id number] Co mmon 00:00:00 00:00:00 Spirit - [facility] 2021-09-04 2021-09-04 Telephone [place], 1.2.840.1 [id number] Univers 00:00:00 00:00:00 Bella Dunn [id number] ity of 3.412.2.7 [place] .[id number] .8 [facility] 2021-09-04 2021-09-[address], 1.2.840.1 [id number] Univers 00:00:00 00:00:00 Only Irene 80710.1.1 ity of [place] 3.412.2.7 [place] .[id number] .8 [facility] 2021-09-04 2021-09-04 Orders Doctor MHOAMUD [id number] Univers 00:00:00 00:00:00 Only Unassigned, GINI 350.1.13.10 ity of [facility] [id number] Benjamin as [id number] [address] 2021-09-03 2021-09-03 (TEL) STLMLC STLMLC [id number] Co mmon 00:00:00 00:00:00 Spirit - [facility] 2021-08-22 2021-08-22 Hose Sprayer [place], Adc Lab Main [facility] 1.2.8 40.114 [id number] Univers 09:45:00 10:00:00 Visit Abdon Arias 350.1.13.10 ity of [facility] 4.2.7.2.686 [place] [phone] [address] 2021-08-22 2021-08-22 Outpatient R MARY [facility] [id number] Univers 09:45:00 09:45:00 ABDON itmichelle of [facility] 2021-08-22 2021-08-22 Orders Doctor MOHAMUD 1.2.840.114 [id number] Univers 00:00:00 00:00:00 Only Unassigned, GINI 350.1.13.10 ity of [place] [facility] 4.2.7.2.686 Benjamin as [phone] [address] 2021-08-22 2021-08-22 OFFICE STLMLC STLMLC [id number] Co mmon 00:00:00 00:00:00 VISIT Ad ESTAB PT - CHI LEVEL 4 [facility] 2021-08-22 2021-08-22 (WELLNESS) STLMLC STLMLC [id number] Common 00:00:00 00:00:00 Wellness Spiri t Visit - [facility] 2021-08-22 2021-08-22 (TEL) [facility] [id number] Co mmon 00:00:00 00:00:00 Spirit - [facility] 2021-08-21 2021-08-21 Office Juve [facility] 1.2.224.808 [id number] Univers 10:00:00 10:20:00 Visit Luis ABBOTT 350.1.13.10 ity [facility] 4.2.7.2.686 Aretha cash PROFESSIO [phone] [address] 2021-08-21 2021-08-21 Outpatient R LUIS AN [facility] [id number] Univers 10:00:00 10:00:00 MASTER ANMTKun ity [facility] 2021-08-13 2021-08-13 Telephone Glenn, 1.2.840.1 [id number] [facility] 00:00:00 00:00:00 Bella Dunn 85522.1.1 ity 3.412.2.7 [place] [id number] .8 [facility] 2021-08-09 2021-08-11 Outside nullFlavo [id number] Memoria 14:19:50 04:59:59 Medical r Physicians 00 l Records Bariatric Raheem n Surgery 2021-08-09 2021-08-11 Outside nullFlavo [id number] Memoria 14:19:50 04:59:59 Medical r Physicians 00 l Records Bariatric Raheem n Surgery 2021-08-09 2021-08-10 Outpatient [facility] [id number] 09:19:50 23:59:59 00 2021-08-10 2021-08-10 Emergency X Ana SINGER [facility] ERT [id number] Univers 19:42:00 22:11:00 ity of [facility] 2021-08-10 2021-08-10 Emergency Ana Singer [facility] 1.2.840.114 [id number] Univers 19:42:00 22:11:00 Katalina ABBOTT 350.1.13.10 i ty of [place] 4.2.7.2.686 [place] [facility] [phone] [facility] 0[address] 2021-08-10 2021-08-10 Orders Doctor ONEIDA 1.2.840.114 [id number] Univers 00:00:00 00:00:00 Only Unassigned, GINI 350.1.13.10 ity of [facility] 4.2.7.2.686 Benjamin as [phone] [facility] 009 [address] 2021-08-02 2021-08-02 (TEL) [facility] [id number] Co mmon 00:00:00 00:00:00 [facility] 2021-08-01 2021-08-01 (TEL) [facility] [id number] Co mmon 00:00:00 00:00:00 [facility] 2021-07-29 2021-07-29 Outpatient CHRIS SHAH [facility] [id number] Univers 11:20:00 12:31:29 CHRIS RODGERS [facility] 2021-07-29 2021-07-29 Office Ana Maria [facility] 1.2.840.114 [id number] Univers 11:20:00 12:31:29 Visit [facility] 350.1.13.10 ity of [place] 4.2.7.2.686 Benjamin as OSIEL?BLEA [phone] [place] [address] MEDICAL OFFICE BUILDING 2021-07-29 2021-07-29 Outpatient CHRIS SHAH [facility] [id number] Univers 11:20:00 11:20:00 CHRIS RODGERS [facility] 2021-07-29 2021-07-[address] [facility] [id number] 00:00:00 00:00:00 [facility] 2021-07-24 2021-07-[address] [facility] [id number] Co mmon 00:00:00 00:00:00 VISIT Spirit ESTAB PT - CHI LEVEL 4 [facility] 2021-07-22 2021-07-22 Telephone Glenn, Gary.2.840.1 [id number] Univers 00:00:00 00:00:00 Bella Dunn 91787.1.1 ity of 3.412.2.7 [place] .3.031620 MD Alonso8 [facility] [place] 2021-07-19 2021-07-19 Outpatient Latrell CUNNINGHAMJass CHRIS [facility] [id number] Univers 08:40:00 09:23:07 CHRIS RODGERS michelle [facility] 2021-07-19 2021-07-19 Outpatient Latrell CUNNINGHAMECHRIS [facility] [id number] Univers 08:40:00 09:23:07 ANA MARIA CHRIS [facility] 2021-07-19 2021-07-19 Office Ana [facility] 1.2.840.114 [id number] Univers 08:40:00 09:23:07 Visit [facility] 350.1.13.10 ity of [place] 4.2.7.2.686 Benjamin as OSIEL?BLEA [phone] [address] MEDICAL OFFICE BUILDING 2021-07-19 2021-07-19 Orders Doctor ONEIDA 1.2.840.114 [id number] Univers 00:00:00 00:00:00 Only Unassigned, GINI 350.1.13.[address] [place] [facility] 4.2.7.2.686 Benjamin as [phone] [facility] 009 Branch 2021-07-07 2021-07-08 Emergency X COUNTS INCLUDE 234 [facility]EDS AT [facility] ERT [id number] Univers 22:38:00 00:14:00 [facility] 2021-07-07 2021-07-08 Emergency [facility] 1.2.633.228 [id number] Univers 22:38:00 00:14:00 Surendra Cash [place] 350.1.13.10 ity of [place] 4.2.7.2.686 [place] [phone] [facility] 084 [place] 2021-07-05 2021-07-[address], 1.2.840.1 [id number] Univers 14:35:00 15:20:00 Procedure Irene 36214.1.1 i ty of [place] 3.412.2.7 [place] .3.918003 MD Gupta8 [facility] 2021-07-05 2021-07-[address], 1.2.840.1 [id number] Univers 13:20:00 14:20:00 Procedure Irene 97209.1.1 i ty of [place] 3.412.2.7 [place] .3.462579 MD Gupta8 [facility] 2021-07-05 2021-07-05 Outpatient ROBERT SHERMAN [facility] MDA [id number] 14:15:30 14:15:30 IRENE childers 2021-07-05 2021-07-05 Outpatient ROBERT SHERMAN [facility] MDA [id number] 13:02:39 13:02:39 IRENE childers 2021-07-05 2021-07-05 Travel 1.2.840.1 1.2.079.092 [id number] Univers 00:00:00 00:00:00 61722.1.1 350.1.13.41 ity of 3.412.2.7 2.2.7.3.698 [place] .3.447980 084.8 MD Block [facility] 2021-07-03 2021-07-[address], 1.2.840.1 [id number] Univers 00:00:00 00:00:00 Irene 98260.1.1 ity of [place] 3.412.2.7 [place] .3.481965 MD Block [facility] 2021-07-02 2021-07-02 Lyndon Sherman, 1.2.840.1 [id number] Univers 00:00:00 00:00:00 Only Irene 16139.1.1 ity of [place] 3.412.2.7 [place] .3.240802 MD Gupta8 [facility] 2021-07-02 2021-07-02 Francisca Elizabeth 1.2.840.1 [id number] [id number] Univers 00:00:00 00:00:00 Bella Dunn 63749.1.1 ity of 3.412.2.7 [place] .3.751489 .8 [facility] 2021-07-02 2021-07-02 (TEL) STLMLC STLMLC [id number] Co mmon 00:00:00 00:00:00 [facility] 2021-07-01 2021-07-01 (TEL) STLMLC STLMLC [id number] Co mmon 00:00:00 00:00:00 [facility] 2021-06-27 2021-06-27 Outpatient ROBERT VALADEZBRYAN HEREDIA [facility] [id number] 12:25:48 12:30:29 JUSTIN childers 2021-06-27 2021-06-27 Telephone Summers [place], 1.2.840.1 [id number] Univers 11:40:00 12:30:29 Justin 15702.1.1 ity of 3.412.2.7 [place] .3.758132 .8 [facility] 2021-06-27 2021-06-27 Outpatient [facility] [id number] Univers 00:00:00 00:00:00 [facility] 2021-06-27 2021-06-27 Outpatient L[facility]ll [facility] [id number] Univers 00:00:00 00:00:00 [facility] 2021-06-27 2021-06-[address] [facility] 1.2.840.114 [id number] Univers 00:00:00 00:00:00 [employer] [facility] 350.1.13.10 it y of CANCER 4.2.7.2.686 [facility] [phone] Med [place] [address] Branch 2021-06-26 2021-06-26 Ancillary Sherman, 1.2.840.1 [id number] [id number] Univers 12:15:00 14:00:00 Procedure Irene 15937.1.1 i ty of [place] 3.412.2.7 [place] .3.272213 MD Umair childers [facility] 2021-06-26 2021-06-26 [facility] MDA [id number] 12:05:35 12:05:35 IRENE Elijahanabela childers 2021-06-26 2021-06-26 Travel 1.2.840.1 1.2.655.994 [id number] Univers 00:00:00 00:00:00 19173.1.1 350.1.13.41 ity of 3.412.2.7 2.2.7.3.698 [place] .3.981745 084.[address] [facility] 2021-06-19 2021-06-19 Office Melina Heredia, 1.2.840.1 [id number] [facility] 11:40:00 13:06:03 Visit Justin 14312.1.1 ity of 3.412.2.7 [place] .3.936300 MD Umair childers [facility] 2021-06-19 2021-06-19 [facility]patient [facility] MDA [id number] 11:02:57 13:06:03 JUSTIN childers 2021-06-19 2021-06-19 [facility] MDA [id number] 10:51:35 10:55:41 JUSTIN childers 2021-06-19 2021-06-19 Orders Delgado, 1.2.840.1 [id number] [facility] 00:00:00 00:00:00 Only Dennis 09058.1.1 ity of [place] 3.412.2.7 [place] .3.068447 MD Umair childers [facility] 2021-06-19 2021-06-19 Travel 1.2.840.1 1.2.725.795 [id number] Univers 00:00:00 00:00:00 23002.1.1 350.1.13.41 ity of 3.412.2.7 2.2.7.3.698 [place] .3.775190 084.8 MD Gupta8 [facility] 2021-06-17 2021-06-17 (TEL) STLMLC STLMLC [id number] Co mmon 00:00:00 00:00:00 [facility] 2021-06-17 2021-06-17 OFFICE STLMLC STLMLC [id number] Co mmon 00:00:00 00:00:00 VISIT Spirit ESTAB PT - CHI LEVEL 4 [facility] 2021-06-04 2021-06-04 (TEL) STLMLC STLMLC [id number] Co mmon 00:00:00 00:00:00 [facility] 2021-05-06 2021-05-06 Telephone Glenn 1.2.840.1 [id number] Univers 00:00:00 00:00:00 Bella Dunn 21156.1.1 ity of 3.412.2.7 [place] .3.322620 MD Gupta8 [facility] 2021-05-03 2021-05-03 (TEL) STLMLC STLMLC [id number] Co mmon 00:00:00 00:00:00 [facility] 2021-05-01 2021-05-01 (TEL) STLMLC STLMLC [id number] Co mmon 00:00:00 00:00:00 [facility] 2021-04-22 2021-04-22 (TEL) STLMLC STLMLC [id number] Co mmon 00:00:00 00:00:00 [facility] 2021-04-12 2021-04-12 OFFICE STLMLC STLMLC [id number] Co mmon 00:00:00 00:00:00 VISIT EST Spir it PT LEVEL 3 - [facility] 2021-04-03 2021-04-03 Elpidio Blakely [facility] 1.2.939.691 [id number] Univers 00:00:00 00:00:00 Management Meghann [employer] 350.1.13.10 ity of CANCER 4.2.7.2.686 [facility] [id number] [facility] MDA [id number] 2021-04-02 2021-04-02 (TEL) [facility] [id number] Co mmon 00:00:00 00:00:00 [facility] 2021-04-01 2021-04-01 Glenny Sherman, 1.2.840.1 [id number] Univers 00:00:00 00:00:00 Irene 53184.1.1 ity of [place] 3.412.2.7 [place] .3.004525 MD Block [facility] 2021-03-20 2021-03-20 Ancillary [facility] Giovanna, 1.2.840.1 [id number] Univers 20:15:00 20:20:00 Procedure Justin 36920.1.1 it y of 3.412.2.7 [place] .3.069611 MD Gupta8 [facility] 2021-03-20 2021-03-20 Ancillary Summersbryan Heredia, 1.2.840.1 [id number] Univers 20:10:00 20:15:00 Procedure Justin 81946.1.1 it y of 3.412.2.7 [place] .3.173769 MD Gupta8 [facility] 2021-03-20 2021-03-20 Ancillary Summersbryan Garciae, 1.2.840.1 [id number] Univers 20:05:00 20:10:00 Procedure Justin 89229.1.1 it y of 3.412.2.7 [place] .3.029568 MD Block [facility] 2021-03-20 2021-03-20 Ancillary [facility] Homer, 1.2.840.1 [id number] Univers 20:00:00 20:05:00 Procedure Justin 90777.1.1 it y of 3.412.2.7 [place] .3.495929 MD Block [facility] 2021-03-20 2021-03-20 Outpatient MELINA HEREDIA, [facility] [id number] 13:31:43 13:31:43 JUSTIN childers 2021-03-20 2021-03-20 Outpatient ROBERT HEREDIA MDA MDA [id number] 13:29:23 13:29:23 JUSTIN childers 2021-03-20 2021-03-20 Outpatient ROBERT HEREDIA MDA MDA [id number] 13:29:19 13:29:19 JUSTIN childers 2021-03-20 2021-03-20 Outpatient ROBERT HEREDIA MDA MDA [id number] 13:12:06 13:12:06 JUSTIN childers 2021-03-14 2021-03-14 (TEL) STLMLC STLMLC [id number] Co mmon 00:00:00 00:00:00 [facility] 2021-03-12 2021-03-12 OFFICE STLMLC STLMLC [id number] Co mmon 00:00:00 00:00:00 VISIT [facility] LEVEL 4 [facility] 2021-03-11 2021-03-11 (TEL) STLMLC STLMLC [id number] Co mmon 00:00:00 00:00:00 [facility] 2021-03-07 2021-03-07 (TEL) STLMLC STLMLC [id number] Co mmon 00:00:00 00:00:00 [facility] 2021-03-06 2021-03-06 Office Melina Heredia, 1.2.840.1 [id number] [facility] 08:00:00 08:43:54 Visit Justin 32802.1.1 ity of 3.412.2.7 [place] .3.636859 .8 Marry childers [facility] 2021-03-06 2021-03-06 Outpatient ROBERT HEREDIA MDA MDA [id number] 07:06:22 08:43:54 JUSTIN childers 2021-03-06 2021-03-06 Outpatient ROBERT HEREDIA MDA MDA [id number] 06:50:19 06:55:29 JUSTIN childers 2021-03-06 2021-03-06 Travel 1.2.840.1 1.2.939.924 [id number] Univers 00:00:00 00:00:00 65855.1.1 350.1.13.41 ity of 3.412.2.7 2.[place].7.3.698 [place] .3.552644 084.8 MD Gupta8 [facility] 2021-03-05 2021-03-05 (TEL) STLMLC STLMLC [id number] Co mmon 00:00:00 00:00:00 [facility] 2021-02-25 2021-02-25 (TEL) STLMLC STLMLC [id number] Co mmon 00:00:00 00:00:00 [facility] 2021-02-19 2021-02-19 OFFICE STLMLC STLMLC [id number] Co mmon 00:00:00 00:00:00 VISIT [facility] PT - CHI LEVEL 4 [facility] 2021-02-12 2021-02-12 (TEL) STLMLC STLMLC [id number] Co mmon 00:00:00 00:00:00 [facility] 2021-02-07 2021-02-07 OFFICE STLMLC STLMLC [id number] Co mmon 00:00:00 00:00:00 VISIT [facility] PT - [facility] 4 [facility] 2021-02-04 2021-02-04 (TEL) STLMLC STLMLC [id number] Co mmon 00:00:00 00:00:00 [facility] 2021-01-24 2021-01-24 NON-BILLAB STLMLC STLMLC [id number] Common 00:00:00 00:00:00 LE VISIT Spiri t [facility] 2021-01-15 2021-01-15 (TEL) STLMLC STLMLC [id number] Co mmon 00:00:00 00:00:00 [facility] 2020-12-27 2020-12-27 (TEL) STLMLC STLMLC [id number] Co mmon 00:00:00 00:00:00 [facility] 2020-12-26 2020-12-26 (TEL) STLMLC STLMLC [id number] Co mmon 00:00:00 00:00:00 [facility] 2020-12-26 2020-12-26 (TEL) STLMLC STLMLC [id number] Co mmon 00:00:00 00:00:00 [facility] 2020-12-25 2020-12-25 OFFICE STLMLC STLMLC [id number] Co mmon 00:00:00 00:00:00 VISIT [facility] 4 [facility] 2020-12-20 2020-12-20 (TEL) STLMLC STLMLC [id number] Co mmon 00:00:00 00:00:00 [facility] 2020-12-17 2020-12-17 Outpatient STLMLC STLMLC [id number] Common 00:00:00 00:00:00 [facility] 2020-12-07 2020-12-07 Outpatient ROBERT HEREDIA MDA MDA [id number] 07:04:33 09:15:23 JUSTIN childers 2020-12-07 2020-12-07 Outpatient ROBERT HEREDIA MDA MDA [id number] 06:51:59 06:55:15 JUSTIN childers 2020-12-05 2020-12-05 (TEL) STLMLC STLMLC [id number] Co mmon 00:00:00 00:00:00 [facility] 2020-11-29 2020-11-29 Outpatient STLMLC STLMLC [id number] Common 00:00:00 00:00:00 [facility] 2020-10-15 2020-10-15 [facility] 1.2.840.114 [id number] Univers 14:30:00 23:59:00 Encounter Meghann S SPECIALTY 350.1.13.10 ity of CARE 4.2.7.2.686 Aretha cash [place] AT [phone] [place] charlene [address] 2020-10-15 2020-10-15 Outpatient Latrell [facility] [id number] Univers 00:00:00 23:59:00 MEGHANN ity [facility] 2020-08-29 2020-08-29 Outpatient STLMLC STLMLC [id number] Common 00:00:00 00:00:00 [facility] 2020-08-27 2020-08-27 Outpatient STLMLC STLMLC [id number] Common 00:00:00 00:00:00 [facility] 2020-08-22 2020-08-22 Outpatient STLMLC STLMLC [id number] Common 00:00:00 00:00:00 [facility] 2020-08-22 2020-08-22 Outpatient STLMLC STLMLC [id number] Common 00:00:00 00:00:00 [facility] 2020-08-22 2020-08-22 Outpatient STLMLC STLMLC [id number] Common 00:00:00 00:00:00 [facility] 2020-08-17 2020-08-17 Outpatient STLMLC STLMLC [id number] Common 00:00:00 00:00:00 [facility] 2020-08-07 2020-08-07 Telephone Charity Flores [facility] 1.2.840.114 [id number] Univers 00:00:00 00:00:00 E Health 350.1.13.10 it y of Cancer 4.2.7.2.686 [facility] - [phone] Med ica[address] 2020-08-03 2020-08-03 Office Charity Flroes [facility] 1.2.840.114 [id number] [facility] 09:25:44 09:55:44 Visit E Health 350.1.13.10 it y of Cancer 4.2.7.2.686 [facility] - [phone] Med [address] 2020-08-03 2020-08-03 Outpatient R CHARITY FLORES [facility] [id number] Univers 09:45:00 09:45:[facility] 2020-08-03 2020-08-03 Lyndon MOHAMUD 1.2.840.114 [id number] Univers 00:00:00 00:00:00 Only Unassigned, GINI 350.1.13.10 [facility] of [facility] 4.2.7.2.686 Benjamin as [phone] [place] [address] [place] 2020-07-31 2020-07-31 Outpatient STLMLC STLMLC [id number] Common 00:00:00 00:00:00 [facility] 2020-07-24 2020-07-24 Outpatient STLMLC STLMLC [id number] Common 00:00:00 00:00:00 [facility] 2020-07-17 2020-07-17 Outpatient STLMLC STLMLC [id number] Common 00:00:00 00:00:00 [facility] 2020-07-11 2020-07-11 Outpatient STLMLC STLMLC [id number] Common 00:00:00 00:00:00 [facility] 2020-07-10 2020-07-10 Ambulatory nullFlavo MNA [id number] Memoria 20:30:00 20:30:00 Pre-Reg r Neurology 02 l Alea Pruden 2020-07-10 2020-07-10 Ambulatory nullFlavo MNA [id number] Memoria 20:30:00 20:30:00 Pre-Reg r Neurology 02 kun Menifee Pruden 2020-07-10 2020-07-10 Outpatient MHIE MHIE [id number] Memoria 15:30:00 15:30:00 Dani Black 2020-07-10 2020-07-10 Outpatient Cruz [facility]CHA[facility]BELA [facility] [id number] 15:30:00 15:30:00 Calixto Dani Mayfield 2020-07-10 2020-07-10 Outpatient STLMLC STLMLC [id number] Common 00:00:00 00:00:00 [facility] 2020-07-05 2020-07-05 Ambulatory nullFlavo MNA [id number] Memoria 19:45:00 19:45:00 Pre-Reg r Neurology 01 l Alea Pruden 2020-07-05 2020-07-05 Ambulatory nullFlavo MNA [id number] Memoria 19:45:00 19:45:00 Pre-Reg r Neurology 01 l Alea Black 2020-07-05 2020-07-05 Outpatient MHIE MHIE [id number] Memoria 14:45:00 14:45:00 01 l Wayne 2020-07-05 2020-07-05 Outpatient Cruz, MISCHER MHMISCHER [id number] 14:45:00 14:45:00 Calixto 01 Chaparro 2020-06-06 2020-06-07 Outpatient nullFlavo MNA [id number] Memoria 20:45:00 04:59:59 r Neurology 00 l Alea Black 2020-06-06 2020-06-07 Outpatient nullFlavo MNA [id number] Memoria 20:45:00 04:59:59 r Neurology 00 l Alea Black 2020-06-06 2020-06-06 Outpatient Cruz MISCHER MHMISCHER [id number] 15:45:00 23:59:59 Calixto Chaparro 2020-06-06 2020-06-06 Outpatient MHIE MHIE [id number] Memoria 15:45:00 15:45:00 00 kun Black 2020-06-05 2020-06-05 [facility] 1.2.840.114 [id number] Univers 00:00:00 00:00:00 Outreach Janusz GORE 350.1.13.10 i ty [facility] 4.2.7.2.686 Aretha SOTO [phone] [place] [address] 2020-05-23 2020-05-23 Outpatient Latrell BLAKELY [facility] [id number] Univers 15:45:00 15:45:00 MEGHANN ity of [facility] 2020-05-23 2020-05-23 Orders Doctor MOHAMUD 1.2.840.114 [id number] Univers 00:00:00 00:00:00 Only Unassigned, GINI 350.1.13.10 ity of [facility] 4.2.7.2.686 Benjamin as [phone] [facility] [address] 2020-05-18 2020-05-18 Outpatient ROBERT HEREDIA [facility] [id number] 09:22:58 09:22:58 JUSTIN childers 2020-04-25 2020-04-25 Outpatient STLMLC STLMLC [id number] Common 00:00:00 00:00:00 [facility] 2020-04-04 2020-04-04 Outpatient STLMLC STLMLC [id number] Common 00:00:00 00:00:00 [facility] 2019-12-05 2019-12-05 Outpatient [facility] [id number] Common 08:20:00 08:20:[address] [facility] [address] Spir it Road [facility] 2019-11-29 2019-11-29 Outpatient [facility] [id number] Common 10:26:00 10:26:[address] [facility] 2019-11-02 2019-11-[address] [facility] [id number] Univers 13:30:00 13:30:00 MEGHANN malcolm [facility] 2019-11-02 2019-11-[address] [facility] 1.2.840.114 [id number] Univers 08:57:33 09:12:33 ne Visit Meghann S Health 350.1.13.10 i ty of Cancer 4.2.7.2.686 [facility] [place] - [phone] Med ical [address] 2019-10-20 2019-10-20 [facility] 1.2.840.114 [id number] Univers 13:28:00 23:59:00 Encounter Meghann S SPECIALTY 350.1.13.10 ity of CARE 4.2.7.2.686 [facility] AT [phone] [place] charlene CANALESMichelle 807 [facility] 2019-10-20 2019-10-20 [facility] 1.2.840.114 [id number] Univers 09:46:00 14:23:00 Encounter Meghann S Health 350.1.13.10 ity of League 4.2.7.2.686 [facility] [phone] [address] ([facility]) 2019-10-19 2019-10-19 Telephone Elodia MOHAMUD [id number] Univers 00:00:00 00:00:00 Malik GINI 350.1.13.10 ity of [facility] 4.2.7.2.686 Benjamin as [phone] [facility] [address] [place] 2019-10-19 2019-10-19 Orders Doctor ONEIDA 1.2.840.114 [id number] Univers 00:00:00 00:00:00 Only Unassigned GINI 350.1.13.10 ity of [facility] 4.2.7.2.686 Benjamin as [phone] [facility] [address] 2019-10-18 2019-10-18 Outpatient R [facility] [id number] Univers 13:00:00 13:00:00 ity [facility] 2019-10-18 2019-10-18 Laboratory Only, Lcc Test [facility] 1.2.840. 114 [id number] Univers 12:24:47 12:39:47 Only Meghann Blakely S SPECIALTY 350.1.13.1 0 ity of [facility] 4[place]2.7.2.686 [place] [phone] [address] 2019-10-14 2019-10-14 Outpatient EL BESSYMAD, MDA MDA [id number] 00:00:00 00:00:00 NICOLLE Nava so alvarado 2019-10-13 2019-10-13 Outpatient MDA MDA [id number] 00:00:00 00:00:00 Yosi childers 2019-10-12 2019-10-12 Outpatient EL SUMMERS GIOVANNA, MDA MDA [id number] 00:00:00 00:00:00 JUSTIN Deluca o alvarado 2019-10-12 2019-10-12 Outpatient EL SUMMERS GIOVANNA, MDA MDA [id number] 00:00:00 00:00:00 JUSTIN Deluca o alvarado 2019-10-12 2019-10-12 Prep For ONEIDA Bright 1.2.840.114 [id number] Univers 00:00:00 00:00:00 Surgery Andrew GINI 350.1.13.[address] [facility] 4.2.7.2.686 Benjamin as [phone] Medi ami [address] 2019-10-10 2019-10-10 Outpatient EL SUMMERS GIOVANNA, MDA MDA [id number] MD 00:00:00 00:00:00 JUSTIN Deluca o alvarado 2019-10-06 2019-10-06 Outpatient EL AHMAD, MDA MDA [id number] MD 00:00:00 00:00:00 NICOLLE childers 2019-10-05 2019-10-05 Outpatient EL SUMMERS GIOVANNA, MDA MDA [id number] MD 00:00:00 00:00:00 JUSTIN Deluca o n 2019-10-05 2019-10-05 Outpatient EL MDA MDA [id number] MD 00:00:00 00:00:00 Yosi o n 2019-10-03 2019-10-03 Outpatient EL MDA MDA [id number] MD 00:00:00 00:00:00 Yosi o alvarado 2019-10-03 2019-10-03 Orders Doctor ONEIDA 1.2.840.114 [id number] Univers 00:00:00 00:00:00 Only Unassigned, GINI 350.1.13.[address] [place] [facility] 4.2.7.2.686 Benjamin as [phone] [facility] ami [address] 2019-09-29 2019-09-29 Outpatient EL CAMPOVERDE, MDA MDA [id number] MD 14:37:37 14:37:37 PARKER childers 2019-09-28 2019-09-28 Outpatient SUMMERS GIOVANNA, MDA MDA [id number] 08:22:18 08:22:18 JUSTIN childers 2019-09-28 2019-09-28 Outpatient SUMMERS GIOVANNA, MDA MDA [id number] 08:22:16 08:22:16 JUSTIN childers 2019-09-28 2019-09-28 Outpatient SUMMERS GIOVANNA, MDA MDA [id number] 08:22:15 08:22:15 JUSTIN childers 2019-09-28 2019-09-28 Outpatient SUMMERS GIOVANNA, MDA MDA [id number] 08:22:15 08:22:15 JUSTIN childers 2019-09-28 2019-09-28 Outpatient SUMMERS GIOVANNA, MDA MDA [id number] 08:22:14 08:22:14 JUSTIN childers 2019-09-28 2019-09-28 Outpatient SUMMERS GIOVANNA, MDA MDA [id number] 08:22:13 08:22:13 JUSTIN childers 2019-09-28 2019-09-28 Outpatient SUMMERS GIOVANNA, MDA MDA [id number] 08:22:12 08:22:12 JUSTIN childers 2019-09-28 2019-09-28 Outpatient SUMMERS GIOVANNA, MDA MDA [id number] 08:22:10 08:22:10 JUSTIN childers 2019-09-28 2019-09-28 Outpatient SUMMERS GIOVANNA, MDA MDA [id number] 08:22:09 08:22:09 JUSTIN childers 2019-09-26 2019-09-[address] [facility] [id number] Univers 13:30:00 13:30:00 [facility]26 2019-09-26 [facility] [id number] Univers 13:08:27 13:23:27 Visit Meghann Cash [facility] 350.1.13.10 it y of Cancer 4.2.7.2.686 [facility] [place] [facility] [phone] Med ical [facility] [address] 2019-09-15 2019-09-15 [facility] 1.2.840.114 [id number] Univers 08:49:00 23:59:00 Encounter Meghann S SPECIALTY 350.1.13.10 ity of CARE 4.2.7.2.686 [facility] AT [phone] Va charlene ROJO 805 [facility] 2019-09-15 2019-09-15 [facility] 1.2.840.114 [id number] Univers 07:35:00 13:27:00 Encounter Meghann Cash Health 350.1.13.10 ity of [place] 4.2.7.2.686 [facility] [phone] [address] ([facility]) 2019-09-15 2019-09-15 Outpatient R [facility] VLS [id number] Univers 07:35:00 13:27:00 [facility] 2019-09-13 2019-09-13 Laboratory Only, Adc Test [facility] 1.2.840. 114 [id number] Univers 10:45:33 11:00:33 Only Meghann Blakely 350.1.13.10 ity of [place] 4.2.7.2.686 [facility] [phone] [facility] [address] 2019-09-13 2019-09-13 Outpatient [facility] [id number] Univers 10:45:00 10:45:00 [facility] 2019-09-13 2019-09-13 Orders Doctor ONEIDA 1.2.840.114 [id number] Univers 00:00:00 00:00:00 Only Unassigned, GINI 350.1.13.[address] [place] [facility] 4.2.7.2.686 Benjamin [phone] [facility] [address] 2019-09-02 2019-09-02 [facility] 1.2.840.114 [id number] Univers 00:00:00 00:00:00 Meghann Cash Lasso 350.1.13.10 it y of Cancer 4.2.7.2.686 [facility] - [phone] Med ical MDA [address] 2019-08-31 2019-08-31 Office [facility] [id number] Univers 13:23:54 13:53:54 Visit Meghann Cash [place] 350.1.13.10 it y of Cancer 4.2.7.2.686 [facility] - [phone] Med ical MDA [address] 2019-08-31 2019-08-31 Outpatient R CEASARJOSE [facility] [id number] Univers 13:30:00 13:30:00 MEGHANN itmichelle [facility] 2019-08-31 2019-08-31 Patient Eugene [facility] 1.2.840.114 [id number] Univers 00:00:00 00:00:00 Outreach [employer] 350.1.13.10 ity of K Cancer 4.2.7.2.686 [facility] - [phone] Med ical MDA [address] 2019-08-30 2019-08-30 Out[facility] [id number] Common 16:35:00 16:35:00 t [facility] [address] [facility] 2019-08-30 2019-08-30 Outpatient R ZORA, [facility] [id number] Univers 14:00:00 14:00:00 MEGHANN ity [facility] 2019-08-22 2019-08-22 Outpatient R RADIOLOGY [facility] [id number] Univers 10:09:40 23:59:00 ity [facility] 2019-08-19 2019-08-19 Outpatient [facility] [id number] Common 09:37:00 09:37:00 t [facility] [address] [facility] 2019-08-17 2019-08-17 Outpatient [facility] [id number] Common 10:12:00 10:12:00 [facility] [address] [facility] 2019-08-12 2019-08-12 Outpatient R RADIOLOGY [facility] [id number] Univers 15:24:39 23:59:00 ity [facility] 2019-08-12 2019-08-12 Hospital Radiology [facility] 1.2.840.114 [id number] Univers 15:24:00 23:59:00 Encounter SPECIALTY 350.1.13.10 [place] [phone] [place] dicnils ROJO [address] [place] [address] 2019-08-12 2019-08-12 Hospital Radiology [facility] 1.2.840.114 [id number] Univers 15:17:00 15:23:00 Encounter SPECIALTY 350.1.13.10 [place].2.[place] [phone] Va dical PARKERY [address] [place] [address] 2019-07-21 2019-07-21 Outpatient [facility] [id number] Common 14:48:00 14:48:00 t [facility] [address] [facility] 2019-07-21 2019-07-21 Outpatient [facility] [id number] Common 10:18:00 10:18:[address] [facility] 2019-05-27 2019-05-27 Hospital Radiology [facility] 1.2.840.114 [id number] Univers 09:15:00 23:59:00 Encounter Mio 350.1.13.10 [place] 4[place].7.2.686 [place] [id number] [facility] [address] 2019-05-27 2019-05-27 Outpatient R RADIOLOGY [facility] [id number] Univers 00:00:00 00:00:00 ity of [facility] 2019-05-27 2019-05-27 Orders Doctor ONEIDA 1.2.840.114 [id number] Univers 00:00:00 00:00:00 Only Unassigned, GINI 350.1.13.[address] [place] [facility] 4.2.7.2.686 Benjamin as [phone] [address] 2019-05-10 2019-05-10 Outpatient [facility] [id number] Common 16:45:00 16:45:00 [facility] it [facility] 2019-05-04 2019-05-04 Hose Sprayer Joeb, Adc Lab Main [facility] 1.2.8 40.114 [id number] Univers 07:53:31 08:08:31 Visit Aubree Carr 350.1.13 .10 ity [facility] 4.2.7.2.686 [place] [facility] [id number] [address] 2019-05-04 2019-05-04 Orders Doctor ONEIDA 1.2.840.114 [id number] Univers 00:00:00 00:00:00 Only Unassigned, GINI 350.1.13.10 it[place] [facility] 4.2.7.2.686 Benjamin as [id number] [address] 2018-10-29 2018-10-29 Outpatient [facility] [id number] Common 15:28:00 15:28:00 [facility] it Road [facility] 2018-10-25 2018-10-25 Hose Sprayer 1, Adc Lab [facility] 1.2.840.114 [id number] Univers 12:22:10 12:37:10 Visit Aubree Carr 350.1.13 .10 ity of [place] 4.2.7.2.686 [facility] [phone] [facility] [address] 2018-10-25 2018-10-25 Outpatient [facility] [id number] Common 10:00:00 10:00:00 t [facility] [address] [facility] 2018-10-25 2018-10-25 Orders Doctor MOHAMUD 1.2.840.114 [id number] 00:00:00 00:00:00 Only Unassigned, GINI 350.1.13.10 [facility] 4.2.7.2.686 [facility] [id number] [facility] [address] 2018-05-24 2018-05-24 Outpatient [facility] [id number] Common 14:15:00 14:15:00 t [facility] [address] [facility] 2018-05-14 2018-05-14 Outpatient [facility] [id number] Common 13:00:00 13:00:00 [facility] [address] [facility] 2017-07-17 2017-07-17 Outpatient [facility] 13 [id number] Common 14:52:00 14:52:00 t [facility] [address] [facility] 2017-07-10 2017-07-10 Out[facility] [id number] Common 10:00:00 10:00:00 t [facility] [address] [facility] 2016-10-03 2016-10-04 Outpt Diag nullFlavo [facility] [id number] Memoria 14:05:00 04:59:00 Services r Outpatient 00 l Imaging [facility] 2016-10-03 2016-10-04 Outpt Diag nullFlavo [facility] [id number] Memoria 14:05:00 04:59:00 Services r Outpatient 00 l Imaging [facility] 2016-10-03 2016-10-03 Outpatient LC Schultz [facility] [id number] 09:05:00 23:59:00 Drake 00 Yung 2013-01-05 2013-01-05 DS nullFlavo [id number] [place]oria 07:50:00 16:15:00 r [facility] 00 l [place] 2013-01-05 2013-01-05 Outpatient 2.16.840. 2.16.840.1. 4 [id number] Memoria 07:50:00 16:15:00 1.377829. 709754.3.61 l 3.615.0.1 5.0.100 Raheem n 00 [facility] 2013-01-05 2013-01-05 Outpatient 2.16.840. 2.16.840.1. 4 [id number] Memoria 07:50:00 16:15:00 1.192504. [id number] l 3.615.0.1 5.0.100 Raheem n 00 [facility] 2013-01-05 2013-01-05 Outpatient 2.16.840. 2.16.840.1. 4 [id number] Memoria 07:50:00 16:15:00 1.504074. 363787.3.61 l 3.615.0.1 5.0.100 Raheem n 00 [facility] 2013-01-05 2013-01-05 Outpatient 2.16.840. 2.16.840.1. 4 [id number] Memoria 07:50:00 16:15:00 1.987248. 025217.3.61 l 3.615.0.1 5.0.100 Raheem n 00 [facility] 2013-01-05 2013-01-05 Outpatient 2.16.840. 2.16.840.1. 4 [id number] Memoria 07:50:00 16:15:00 1.055436. 773328.3.61 l 3.615.0.1 5.0.100 Raheem n 00 [facility] 2013-01-05 2013-01-05 DS nullFlavo [id number] [place] 07:50:00 16:15:00 r [facility] 00 [place] Results Test Description Test Time Test Comments Results Result Comments Source (MANUAL DIFFERENTIAL) 2022-02-11 11:37:56 Test Item Value Reference Range Interpretation Comme nts NEUTROPHILS - REL (DIFF) (BEAKER) (test code = 1359) 75 % LYMPHOCYTES - REL (DIFF) (BEAKER) (test code = 1360) 7 % MONOCYTES - REL (DIFF) (BEAKER) (test code = 1361) 6 % EOSINOPHILS - REL (DIFF) (BEAKER) (test code = 1362) 2 % ATYPICAL LYMPHOCYTE - REL (DIFF) (BEAKER) (test code = 260) 10 % 0-0 H NEUTROPHILS - ABS (DIFF) (BEAKER) (test code = 1365) 5.40 K/ L 1 .80-8.00 LYMPHOCYTES - ABS (DIFF) (BEAKER) (test code = 1366) 0.50 K/ L 1 .48-4.50 L MONOCYTES - ABS (DIFF) (BEAKER) (test code = 1367) 0.43 K/ L 0.0 0-1.30 EOSINOPHILS - ABS (DIFF) (BEAKER) (test code = 1368) 0.14 K/ L 0 .00-0.50 ATYPICAL LYMPHOCYTES - ABS (DIFF) (BEAKER) (test code = 263) 0.72 K/ L 0.00-0.00 H TOTAL COUNTED (BEAKER) (test code = 1351) 100 WBC MORPHOLOGY (BEAKER) (test code = 487) Normal PLT MORPHOLOGY (BEAKER) (test code = 486) Normal RBC MORPHOLOGY (BEAKER) (test code = 762) Normal BASIC METABOLIC [id number] 11:26:28 Test Item Value Reference Range Interpretation Comments SODIUM (BEAKER) 140 meq/L 135-148 (test code = 381) POTASSIUM 3.9 meq/L 3.6-5.5 Specimen slight ly (BEAKER) (test hemolyzed code = 379) CHLORIDE (BEAKER) 102 meq/L 98-106 (test code = 382) CO2 (BEAKER) 25 meq/L 20-29 (test code = 355) BLOOD UREA 17 mg/dL 10-26 NITROGEN (BEAKER) (test code = 354) CREATININE 0.80 mg/dL 0.50-1.20 Specimen slight ly (BEAKER) (test hemolyzed code = 358) GLUCOSE RANDOM 99 mg/dL 70-110 (BEAKER) (test code = 652) CALCIUM (BEAKER) 9.2 mg/dL 8.5-10.5 (test code = 697) EGFR (BEAKER) 87 Interpretatio n of eGFR (test code = mL/min/1.73 values Stage De scription 1092) sq m Result G1 Norm al or high >=90 G2 Mildly decreased 60-89 G3a Mildl y to moderately 45-5 9 G3b Moderately to s everely 30-44 G4 Severl y decreased 15-29 G5 Kidney failure <15Reported eGF R is based on the CKD-EPI 2020 equation that d oes not use a race coefficientEsti mated GFR is not as accur ate as Creatinine Rosalind radu in predicting glom erular filtration rate . Estimated GFR is not appl icable for dialysis patien ts [place] Carrier Assistant ID - [id number] ID - [id number] ID - [id number] ID - [id number] ID - [id number] ID - [id number] ID - [id number] ID - [id number] ID - [id number] ID - [id number] ID - [id number] ID - [id number] WITH PLATELET COUNT + MANUAL [id number] 11:08:42 Test Item Value Reference Range Interpretation Comments WHITE BLOOD CELL COUNT (BEAKER) 7.2 K/ L 4.0-10.0 (test code = 775) RED BLOOD CELL COUNT (BEAKER) 4.66 M/ L 4.00-5.00 (test code = 761) HEMOGLOBIN (BEAKER) (test code = 14.2 GM/DL 12.0-15.5 410) HEMATOCRIT (BEAKER) (test code = 41.1 % 36.0-46.0 411) MEAN CORPUSCULAR VOLUME (BEAKER) 88 fL 82-99 (test code = 753) MEAN CORPUSCULAR HEMOGLOBIN 30.5 pg 27.0-33.0 (BEAKER) (test code = 751) MEAN CORPUSCULAR HEMOGLOBIN CONC 34.5 GM/DL 32.0-36.0 (BEAKER) (test code = 752) RED CELL DISTRIBUTION WIDTH 12.4 % 12.0-15.0 (BEAKER) (test code = 412) PLATELET COUNT (BEAKER) (test 310 K/CU MM 150-430 code = 756) MEAN PLATELET VOLUME (BEAKER) 9.7 fL 6.0-11.5 (test code = 754) NUCLEATED RED BLOOD CELLS 0 /100 WBC 0-0 (BEAKER) (test code = 413) [id number] 00:00:00 Test Item Value Reference Range Interpretation Comments HM Mammogram (test code = 99) yes Normal Radiology Study observation (narrative) (test code = 48517-3) [facility] [id number] 00:00:00 Test Item Value Reference Range Interpretation Comments Colonoscopy (test code no Pt reports no screening = 97) [facility] 20:03:00 Test Item Value Reference Range Interpretation Comments eGFR (test code = eGFR) 105 [facility]BpahdcsTYARVYVTO0347-48-34 20:03:00 Test Item Value Reference Range Interpretation Comments BUN (test code = BUN) 10 7-22 N [facility] PasoTeagudbIPMYCZUKK4466-83-92 20:03:00 Test Item Value Reference Range Interpretation Comments Calcium Lvl (test code = Calcium Lvl) 8.8 8.5-10.5 N [facility] PasoVkoisxcYCUMKAYOU9787-52-69 20:03:00 Test Item Value Reference Range Interpretation Comments Creatinine Lvl (test code = Creatinine 0.7 0.5-1.4 N Lvl) [facility] PasoWxbvghdSNPXCCDVW7587-63-84 20:03:00 Test Item Value Reference Range Interpretation Comments CO2 (test code = CO2) 28 24-32 N [facility] PasoNdthuvfECPVAKDVW7323-21-60 20:03:00 Test Item Value Reference Range Interpretation Comments Glucose Lvl (test code = Glucose Lvl) 93 70-99 N [facility] PasoCtnxjbnJEUWKXODF6558-37-37 20:03:00 Test Item Value Reference Range Interpretation Comments Sodium Lvl (test code = Sodium Lvl) 142 135-145 N [facility] PasoIzpldzaUHOIBZZTT7722-38-60 20:03:00 Test Item Value Reference Range Interpretation Comments Potassium Lvl (test code = Potassium 4.1 3.5-5.1 N Lvl) [facility] PasoHozpdzvTBWZSDCNZ1923-84-24 20:03:00 Test Item Value Reference Range Interpretation Comments Chloride Lvl (test code = Chloride Lvl) 103 95-109 N [facility] PasoLeizmusZVIJJCTEV4575-30-90 20:03:00 Test Item Value Reference Range Interpretation Comments AGAP (test code = AGAP) 15.1 10.0-20.0 N [facility] PasoCsudhzvEPWZQIVXZ5346-51-06 20:03:00 Test Item Value Reference Range Interpretation Comments eGFR (test code = eGFR) 105 [facility] PasoQydqkaeSRRKXTFAX7396-33-35 20:03:00 Test Item Value Reference Range Interpretation Comments BUN (test code = BUN) 10 7-22 N [facility] PasoXfwnjmmNIDAFDIXA4946-41-90 20:03:00 Test Item Value Reference Range Interpretation Comments Calcium Lvl (test code = Calcium Lvl) 8.8 8.5-10.5 N [facility] PasoFcfeqizUFCGYBJGH7807-74-61 20:03:00 Test Item Value Reference Range Interpretation Comments Creatinine Lvl (test code = Creatinine 0.7 0.5-1.4 N Lvl) [facility] PasoIgbdtsfQRHRPPRGS6049-27-31 20:03:00 Test Item Value Reference Range Interpretation Comments CO2 (test code = CO2) 28 24-32 N [facility] PasoRttcqonOLBZTSGLY8526-29-89 20:03:00 Test Item Value Reference Range Interpretation Comments Glucose Lvl (test code = Glucose Lvl) 93 70-99 N [facility] PasoXwumqjgCVLUCONCU9070-23-13 20:03:00 Test Item Value Reference Range Interpretation Comments Sodium Lvl (test code = Sodium Lvl) 142 135-145 N [facility] PasoMpnfdjyVQKLOTNXA0813-81-38 20:03:00 Test Item Value Reference Range Interpretation Comments Potassium Lvl (test code = Potassium 4.1 3.5-5.1 N Lvl) [facility] PasoNazftxqYRKECCESZ3401-83-13 20:03:00 Test Item Value Reference Range Interpretation Comments Chloride Lvl (test code = Chloride Lvl) 103 95-109 N [facility] PasoItuydweVEUGLUUVB8804-01-62 20:03:00 Test Item Value Reference Range Interpretation Comments AGAP (test code = AGAP) 15.1 10.0-20.0 N [facility]NrmjcwzAIGBIYRJRN8332-85-29 20:03:00 Test Item Value Reference Range Interpretation Comments Basophils # (test code 0.1 See_Comment N [Aut omated message] The = Basophils #) system which generated this result tra nsmitted reference range : <=0.2. The reference r lilly was not used to int erpret this result as normal/abnormal . [facility] HospitalTudyicaESJJFFPPIU7880-19-81 20:03:00 Test Item Value Reference Range Interpretation Comments Eosinophils (test code = 0.6 See_Comment N [A utomated message] The Eosinophils) system which ge nerated this result tra nsmitted reference range : <=4.0. The reference r lilly was not used to int erpret this result as normal/abnormal . [facility] HospitalBjpdrczXNFDVZYTQR1464-61-10 20:03:00 Test Item Value Reference Range Interpretation Comments Basophils # (test code 0.1 See_Comment N [Aut omated message] The = Basophils #) system which generated this result tra nsmitted reference range : <=0.2. The reference r lilly was not used to int erpret this result as normal/abnormal . [facility] HospitalVzzkzabAKRVROXEPP6494-64-09 20:03:00 Test Item Value Reference Range Interpretation Comments Monocytes # (test code 0.7 See_Comment N [Aut omated message] The = Monocytes #) system which generated this result tra nsmitted reference range : <=0.8. The reference r lilly was not used to int erpret this result as normal/abnormal . [facility] HospitalKnltekcQYVGUMPEMW2855-45-16 20:03:00 Test Item Value Reference Range Interpretation Comments Eosinophils # (test code 0.1 See_Comment N [A utomated message] The = Eosinophils #) system whic h generated this result tra nsmitted reference range : <=0.5. The reference r lilly was not used to int erpret this result as normal/abnormal . [facility] HospitalHxitgdoNPWZNUMTYB9243-83-80 20:03:00 Test Item Value Reference Range Interpretation Comments Basophils (test code = 0.7 See_Comment N [Aut omated message] The Basophils) system which ge nerated this result tra nsmitted reference range : <=1.0. The reference r lilly was not used to int erpret this result as normal/abnormal . [facility] HospitalKubbykvWHBCSVBQLE2798-40-89 20:03:00 Test Item Value Reference Range Interpretation Comments Segs-Bands # (test code = Segs-Bands #) 5.3 1.5-8.1 N [facility] HospitalPssheiuBLQVJMDLFR7429-06-78 20:03:00 Test Item Value Reference Range Interpretation Comments Lymphocytes # (test code = Lymphocytes 2.0 1.0-5.5 N #) [facility] HospitalZtrydxqKCJMNVYJYH5271-80-25 20:03:00 Test Item Value Reference Range Interpretation Comments Segs (test code = Segs) 65.8 45.0-75.0 N [facility] HospitalDctvpunMXAWFJRPLY7699-97-44 20:03:00 Test Item Value Reference Range Interpretation Comments Lymphocytes (test code = Lymphocytes) 24.8 20.0-40.0 N [facility] HospitalIgzznlvOCOGFNGWAP7630-78-44 20:03:00 Test Item Value Reference Range Interpretation Comments Monocytes (test code = Monocytes) 8.1 2.0-12.0 N [facility] HospitalMeuihgiTKSZVGLSLR5691-08-96 20:03:00 Test Item Value Reference Range Interpretation Comments PROTIME (test code = PROTIME) 13.2 s 12.0-14.7 N [facility] HospitalIkyrtwsPSWSCVTSSO0018-33-84 20:03:00 Test Item Value Reference Range Interpretation Comments INR (test code = INR) 1.01 0.85-1.17 N [facility] HospitalWcyhmaoOGBJQABGJZ7759-06-35 20:03:00 Test Item Value Reference Range Interpretation Comments aPTT (test code = aPTT) 28.0 s 22.9-35.8 N [facility] HospitalNcqjmvtENOPAFYPOY5809-46-90 20:03:00 Test Item Value Reference Range Interpretation Comments MPV (test code = MPV) 8.7 7.4-10.4 N [facility] HospitalVycjzhiDSTIAMNTEQ2397-16-40 20:03:00 Test Item Value Reference Range Interpretation Comments Hct (test code = Hct) 42.0 36.0-48.0 N [facility] HospitalMnzcghuSUSHMMPAIC5269-58-07 20:03:00 Test Item Value Reference Range Interpretation Comments MCHC (test code = MCHC) 33.2 32.0-36.0 N [facility] HospitalAgelsbuMBTTPCFKLS8910-19-35 20:03:00 Test Item Value Reference Range Interpretation Comments RDW (test code = RDW) 12.4 11.5-14.5 N [facility] HospitalWlvcgdjBWIOKBZPRY9555-11-75 20:03:00 Test Item Value Reference Range Interpretation Comments Platelet (test code = Platelet) 291 133-450 N [facility] HospitalTkbeqehNFIWGUOIDO7062-86-49 20:03:00 Test Item Value Reference Range Interpretation Comments MCV (test code = MCV) 94.8 81.0-99.0 N [facility] HospitalLdkirqjWVKGQKQMYI7465-23-61 20:03:00 Test Item Value Reference Range Interpretation Comments MCH (test code = MCH) 31.5 pg 27.0-31.0 H [facility] HospitalVctwtcrZSQYOHRDBO5618-99-21 20:03:00 Test Item Value Reference Range Interpretation Comments Hgb (test code = Hgb) 13.9 12.0-16.0 N [facility] HospitalMbltswqUOHFSDWWYV2549-32-73 20:03:00 Test Item Value Reference Range Interpretation Comments WBC X 10x3 (test code = WBC X 10x3) 8.1 3.7-10.4 N [facility] HospitalCgsvlvsDSPOGWDFEA9893-35-42 20:03:00 Test Item Value Reference Range Interpretation Comments RBC X 10x6 (test code = RBC X 10x6) 4.43 4.20-5.40 N [facility] HospitalArannzwISRBDWYKFZ4160-23-91 20:03:00 Test Item Value Reference Range Interpretation Comments Eosinophils (test code = 0.6 See_Comment N [A utomated message] The Eosinophils) system which ge nerated this result tra nsmitted reference range : <=4.0. The reference r lilly was not used to int erpret this result as normal/abnormal . [facility] HospitalVunguftDFKEAKUTZG9191-58-01 20:03:00 Test Item Value Reference Range Interpretation Comments Monocytes # (test code 0.7 See_Comment N [Aut omated message] The = Monocytes #) system which generated this result tra nsmitted reference range : <=0.8. The reference r lilly was not used to int erpret this result as normal/abnormal . [facility] HospitalTehidipXDFDCLCBTU0790-44-45 20:03:00 Test Item Value Reference Range Interpretation Comments Eosinophils # (test code 0.1 See_Comment N [A utomated message] The = Eosinophils #) system whic h generated this result tra nsmitted reference range : <=0.5. The reference r lilly was not used to int erpret this result as normal/abnormal . [facility] HospitalHberfnfCPHCHMYWKF7599-12-27 20:03:00 Test Item Value Reference Range Interpretation Comments Basophils (test code = 0.7 See_Comment N [Aut omated message] The Basophils) system which ge nerated this result tra nsmitted reference range : <=1.0. The reference r lilly was not used to int erpret this result as normal/abnormal . [facility]Stst[facility]yJVMITTKYOM8375-21-99 20:03:00 Test Item Value Reference Range Interpretation Comments Segs-Bands # (test code = Segs-Bands #) 5.3 1.5-8.1 N [facility] HospitalVastpmdKWIWXAHODV1638-33-93 20:03:00 Test Item Value Reference Range Interpretation Comments Lymphocytes # (test code = Lymphocytes 2.0 1.0-5.5 N #) [facility] HospitalObrbrdkCHRQARGXVW7611-32-03 20:03:00 Test Item Value Reference Range Interpretation Comments Segs (test code = Segs) 65.8 45.0-75.0 N [facility] HospitalWrbwsiuKYDWSHZSAN2372-85-33 20:03:00 Test Item Value Reference Range Interpretation Comments Lymphocytes (test code = Lymphocytes) 24.8 20.0-40.0 N [facility] HospitalBiqgzlsGAPTWWZLRH1251-74-63 20:03:00 Test Item Value Reference Range Interpretation Comments Monocytes (test code = Monocytes) 8.1 2.0-12.0 N [facility] HospitalZaopftjCEKUDRGTJF7786-28-09 20:03:00 Test Item Value Reference Range Interpretation Comments PROTIME (test code = PROTIME) 13.2 s 12.0-14.7 N [facility] HospitalSzchlbtAKZHHCYZPH6314-92-66 20:03:00 Test Item Value Reference Range Interpretation Comments INR (test code = INR) 1.01 0.85-1.17 N [facility] HospitalAntlaqlEIOWZEVLFI1579-06-97 20:03:00 Test Item Value Reference Range Interpretation Comments aPTT (test code = aPTT) 28.0 s 22.9-35.8 N [facility] HospitalKkobosuQLORASMQBS6599-38-20 20:03:00 Test Item Value Reference Range Interpretation Comments MPV (test code = MPV) 8.7 7.4-10.4 N [facility] HospitalGnxynxzLCHJNMAVMY0553-13-39 20:03:00 Test Item Value Reference Range Interpretation Comments Hct (test code = Hct) 42.0 36.0-48.0 N [facility] HospitalSspryneOSLIRKVLHN7254-61-42 20:03:00 Test Item Value Reference Range Interpretation Comments MCHC (test code = MCHC) 33.2 32.0-36.0 N [facility] HospitalHodewreQDITXXSOMB7212-88-28 20:03:00 Test Item Value Reference Range Interpretation Comments RDW (test code = RDW) 12.4 11.5-14.5 N [facility] HospitalVonfedpSVJJHNRXSI0220-53-21 20:03:00 Test Item Value Reference Range Interpretation Comments Platelet (test code = Platelet) 291 133-450 N [facility] HospitalJhecjjrWOFIFFNQEX5220-90-16 20:03:00 Test Item Value Reference Range Interpretation Comments MCV (test code = MCV) 94.8 81.0-99.0 N [facility] HospitalGrxehwiPQZSWUQLTZ9569-44-54 20:03:00 Test Item Value Reference Range Interpretation Comments MCH (test code = MCH) 31.5 pg 27.0-31.0 H [facility] HospitalTysrlzfOLYGZFXTJG8875-26-41 20:03:00 Test Item Value Reference Range Interpretation Comments Hgb (test code = Hgb) 13.9 12.0-16.0 N [facility] HospitalQejvjeaCVFHGLERQI3068-49-72 20:03:00 Test Item Value Reference Range Interpretation Comments WBC X 10x3 (test code = WBC X 10x3) 8.1 3.7-10.4 N [facility] HospitalJaljzdlNDKRFAZBNC8778-06-32 20:03:00 Test Item Value Reference Range Interpretation Comments RBC X 10x6 (test code = RBC X 10x6) 4.43 4.20-5.40 N [facility]
--- NOTE | 2022-02-28 15:44 | RAD REPORT ---
EXAM DESCRIPTION: US - Extrem Venous W Compress Toney - 02/28/2022 3:32 pm CLINICAL HISTORY: Swelling COMPARISON: None. TECHNIQUE: Real-time sonographic evaluation of the bilateral lower extremity common femoral, superfi cial femoral, popliteal and posterior tibial veins was performed. FINDINGS: Normal compressibility, flow augmentation, phasic flow and spontaneous flow are identified in the left and right lower extremity common femoral, superficial femoral, popliteal and posterior t ibial veins. No intraluminal filling defects seen. IMPRESSION: No DVT in either lower extremity.
[2022-02-28 16:46] LABS: Urine Blood Negative (Negative); Urine Glucose Negative (Negative); Urine Protein Negative (Negative); Urine Specific Gravity >=1.030 (1.005-1.030); Urine pH 5.5 (5.0-7.0)
[2022-02-28 16:53] LABS: Hematocrit 44.4 % (36.0-45.0); Lymphocytes % 23.1 % (15.3-44.8); MCV 89.8 fL (80-100); MPV 8.1 fL (7.6-11.3); RBC Red Blood Cell Count 4.94 M/uL (3.86-4.86)
[2022-02-28 16:56] LABS: Protime INR 1.1
[2022-02-28 17:07] LABS: Magnesium 2.2 mg/dL (1.6-2.4); Potassium 3.4 mmol/L (3.5-5.1); Troponin High Sensitivity 5.2 pg/mL (<58.9)
--- NOTE | 2022-02-28 17:16 | RAD REPORT ---
EXAM DESCRIPTION: RAD - Chest Single View - 02/28/2022 4:28 pm CLINICAL HISTORY: SOB COMPARISON: Two view chest 01/14/2021 TECHNIQUE: AP portable chest image was obtained 02/28/2022 4:28 pm . FINDINGS: Lungs are clear. Overlying breast/chest soft tissues accentuate bibasilar lung field densi ty. Inspiratory effort is shallow. Heart and vasculature are normal. No measurable pleural effusion a nd no pneumothorax. No acute bony abnormality seen. No acute aortic findings suspected. IMPRESSION: No acute cardiopulmonary process. No significant change from comparison study.
[2022-02-28 17:18] LABS: Urine Crystals Unidentified Few /HPF (None Seen); Urine Mucus Slight /HPF (None Seen)
[2022-02-28] MEDS ORDERED: ONDANSETRON 4 MG/2 ML VIAL ONE (18:18)
[2022-02-28] MEDS ORDERED: dexAMETHasone 10 MG/ML VIAL ONE (18:18)
--- NOTE | 2022-02-28 18:35 | RAD REPORT ---
EXAM DESCRIPTION: CT - Angio Aorta For Dissection - 02/28/2022 6:17 pm CLINICAL HISTORY: shortness of breath, back pain COMPARISON: Portable chest 02/28/2022 TECHNIQUE: Dynamically enhanced 3 mm thick images of the chest, abdomen, and pelvis were obtained du ring administration of approximately 150mL Isovue 370 IV contrast. Sagittal and coronal reconstructio n images were generated using MIP and reviewed. Exam utilizes a protocol to evaluate entire course of the aorta. All CT scans are performed using dose optimization technique as appropriate and may include automated exposure control or mA/KV adjustment according to patient size. FINDINGS: Aorta is normal in diameter with no dissection or other acute aortic findings. Reconstruct ion images show no significant findings. Pulmonary arteries are normal as well. No cardiomegaly, pericardial thickening or pericardial effusio n. No mass or infiltrate in the lung parenchyma. No pleural thickening, pleural effusion or pneumothorax . No abnormal mediastinal or hilar mass or lymphadenopathy seen. No chest wall mass or abnormal axillar y lymphadenopathy. Bilateral breast implants are in place. Celiac, SMA and renal arteries show no suspicious findings. Solid abdominal viscera and bowel show no acute findings. Liver is probably fatty infiltrated. Incidental note made of left retroaortic renal vein. No mass or abnormal lymphadenopathy. No free air, free fluid or inflammatory stranding. No uri nary bladder abnormality. Uterus is absent. Right ovary is unremarkable. Left ovary contains a 3.0 c entimeter cyst. No septation, calcification or suspicious characteristic. This can be re-evaluated [facility] outpatient CT or sonography in 6 months. IMPRESSION: Negative CT scan of the aorta. No acute CT chest, abdomen or pelvis finding. Nonacute findings are detailed in the body of the repor t.
--- NOTE | 2022-02-28 19:27 | ER ---
Nurse's Notes [facility] Name: Sonya Duff Age: 57 yrs Sex: Female : 1965 Arrival Date: 02/28/2022 Time: 14:13 Bed DIS1 Private MD: Ajay Veliz Diagnosis: Lumbago with sciatica;Chest pain, unspecified;Shortness of breath Presentation: 02/28 15:34 Chief complaint: Patient states: Low back pain all the way down to toes described as ss burning and tingling that began 4-5 days ago. Pt reports a hx of neuropathy and is unsure if that is what is causing her discomfort. Also c/o SOB on exertion that also began 4-5 days ago. Coronavirus screen: Client denies travel out of the [place] in the last 14 days. Ebola Screen: Patient denies exposure to infectious person. Patient denies travel to an Ebola-affected area in the 21 days before illness onset. Initial Sepsis Screen: Does the patient meet any 2 criteria? No. Patient's initial sepsis screen is negative. Does the patient have a suspected source of infection? No. Patient's initial sepsis screen is negative. Risk Assessment: Do you want to hurt yourself or someone else? Patient reports no desire to harm self or others. Onset of symptoms was February 24, 2022. 15:34 Method Of Arrival: Ambulatory ss 15:34 Acuity: MICHELLE 3 ss Historical: - Allergies: 15:37 No Known Allergies; ss - PMHx: 15:37 breast cancer, LEFT- invasive ductal; Diabetes - NIDDM; Gastric Reflux; High ss Cholesterol; Hypertension; - PSHx: 15:37 breast reduction, with implants; hysterectomy, partial; left knee repair; ss - Immunization history:: Client reports receiving the 2nd dose of the Covid vaccine. - Social history:: Smoking status: Patient denies any tobacco usage or history of. Screenin:00 Abuse screen: Denies threats or abuse. Denies injuries from another. Nutritional kb3 screening: No deficits noted. Tuberculosis screening: No symptoms or risk factors identified. Fall Risk None identified. Assessment: 19:00 General: Appears in no apparent distress. Behavior is calm, cooperative. kb3 19:00 Pain: Complains of pain in left low back and right low back Pain does not radiate. Pain kb3 currently is 7 out of 10 on a pain scale. Quality of pain is described as burning, aching, Pain began. Cardiovascular: Denies chest pain, shortness of breath. Respiratory: Airway is patent Respiratory effort is even, unlabored, Breath sounds are clear. Vital Signs: 15:34 Pulse 86; Resp 16; Temp 98.4; Pulse Ox 99% ; Weight 92.08 kg; Height 4 ft. 11 in. ss (149.86 cm); Pain 9/10; 15:37 BP 126 / 71; ss 19:58 BP 121 / 67; Pulse 79; Resp 18; Pulse Ox 99% ; Pain 7/10; kb3 15:34 Body Mass Index 41.00 (92.08 kg, 149.86 cm) ss ED Course: 14:13 Patient arrived in ED. as 14:14 Ajay Veliz DO is Private Physician. as 14:40 Marcos Mcguire PA is PHCP. cp 14:42 Sam Faust MD is Attending Physician. cp 15:34 US Extremity Venous W Compression Toney In Process Unspecified. EDMS 15:37 Triage completed. ss 15:37 Arm band placed on left wrist. ss 16:30 XRAY Chest (1 view) In Process Unspecified. EDMS 17:45 Inserted saline lock: 22 gauge in right antecubital area, using aseptic technique. zm 18:18 CT Aorta for Dissection In Process Unspecified. EDMS 19:00 Patient has correct armband on for positive identification. kb3 19:00 No provider procedures requiring assistance completed. kb3 19:26 Ajay Veliz DO is Referral Physician. cp 19:56 Katelyn Hwang, RN is Primary Nurse. kb3 19:59 IV discontinued, intact, bleeding controlled, No redness/swelling at site. Pressure kb3 dressing applied. Administered Medications: 18:32 Drug: Decadron - Dexamethasone 10 mg Route: IVP; Site: right antecubital; iw 19:56 Follow up: Response: No adverse reaction kb3 18:32 Drug: Zofran (Ondansetron) 4 mg Route: IVP; Site: right antecubital; iw 19:56 Follow up: Response: No adverse reaction kb3 19:56 Drug: Potassium Effervescent Tablet 25 mEq Route: PO; kb3 19:56 Follow up: Response: No adverse reaction; Medication administered at discharge. kb3 Medication: 19:00 VIS not applicable for this client. kb3 Outcome: 19:26 Discharge ordered by . mara 19:59 Discharged to home ambulatory. kb3 19:59 Condition: stable 19:59 Discharge instructions given to patient, Instructed on discharge instructions, follow up and referral plans. medication usage, Demonstrated understanding of instructions, follow-up care, medications, Prescriptions given X 2. 19:59 Patient left the ED. kb3 Signatures: Dispatcher [employer] EDIsabel Benitez Irene, RN RN Tri Brewer RN RN Marcos Church, Mandy Madden cp, Kelly, RN RN kb3
--- NOTE | 2022-02-28 19:27 | EDPHYS ---
Physician Documentation [facility] Name: Sonya Duff Age: 57 yrs Sex: Female : 1965 Arrival Date: 02/28/2022 Time: 14:13 Bed DIS1 Private MD: Zay Velizh ED Physician Sam Faust HPI: 02/28 15:50 This 57 yrs old Female presents to ER via Ambulatory with complaints of cp Shortness Of Breath, Leg Pain, Nausea, Chest Tightness. 15:50 The patient presents with pain that is acute, with no known mechanism of injury. cp 15:50 The symptoms are located in the low back. Onset: The symptoms/episode began/occurred 4 cp day(s) ago. The pain radiates to the back of right leg and back of left leg. Associated signs and symptoms: Pertinent positives: chest pain, nausea, weakness, shortness of breath, Pertinent negatives: abdominal pain, constipation, fever, incontinence, numbness, urinary retention. Historical: - Allergies: 15:37 No Known Allergies; ss - PMHx: 15:37 breast cancer, LEFT- invasive ductal; Diabetes - NIDDM; Gastric Reflux; High ss Cholesterol; Hypertension; - PSHx: 15:37 breast reduction, with implants; hysterectomy, partial; left knee repair; ss - Immunization history:: Client reports receiving the 2nd dose of the Covid vaccine. - Social history:: Smoking status: Patient denies any tobacco usage or history of. ROS: 15:55 Constitutional: Negative for body aches, chills, fever, poor PO intake. cp 15:55 Back: Positive for pain at rest, pain with movement, of the low back. cp 15:55 Eyes: Negative for injury, pain, redness, and discharge. cp 15:55 ENT: Negative for drainage from ear(s), ear pain, sore throat, difficulty swallowing, difficulty handling secretions. 15:55 Cardiovascular: Positive for chest pain, Negative for edema, palpitations. 15:55 Respiratory: Positive for shortness of breath, Negative for cough, wheezing. 15:55 Abdomen/GI: Negative for abdominal pain, vomiting, diarrhea, constipation, black/tarry stool, rectal bleeding, bowel incontinence. 15:55 : Negative for urinary symptoms, difficulty urinating, bladder incontinence. 15:55 Neuro: Positive for weakness, Negative for altered mental status, headache, numbness. 15:55 All other systems are negative. Exam: 16:00 Constitutional: The patient appears in no acute distress, alert, awake, cp non-diaphoretic, non-toxic, well developed, well nourished, obese. 16:00 Head/Face: Normocephalic, atraumatic. cp 16:00 Eyes: Periorbital structures: appear normal, Conjunctiva: normal, no exudate, no injection, Sclera: no appreciated abnormality, Lids and lashes: appear normal, bilaterally. 16:00 ENT: External ear(s): are unremarkable, Nose: is normal, Mouth: Lips: moist, Oral mucosa: moist, Posterior pharynx: Airway: no evidence of obstruction, patent. 16:00 Neck: ROM/movement: is normal, is supple, without pain, no range of motions limitations. 16:00 Chest/axilla: Inspection: normal. 16:00 Cardiovascular: Rate: normal, Rhythm: regular. 16:00 Respiratory: the patient does not display signs of respiratory distress, Respirations: normal, no use of accessory muscles, no retractions, labored breathing, is not present, Breath sounds: are clear throughout, no decreased breath sounds, no stridor, no wheezing. 16:00 Abdomen/GI: Inspection: obese Bowel sounds: active, all quadrants, Palpation: abdomen is soft and non-tender, in all quadrants. 16:00 Back: pain, that is moderate, of the low back area, ROM is painful, with all movement, Straight leg raises: of both lower extremities does not illicit pain. 16:00 Skin: cellulitis, is not appreciated, no rash present. 16:00 Neuro: Orientation: to person, place \T\ time. Mentation: is normal, Motor: moves all fours, strength is normal, Sensation: no obvious gross deficits, Gait: is steady, Deep tendon reflexes are 2+ (normal) in the right patellar, right Achilles, left patellar and left Achilles. 19:25 ECG was reviewed by the Attending Physician. cp Vital Signs: 15:34 Pulse 86; Resp 16; Temp 98.4; Pulse Ox 99% ; Weight 92.08 kg; Height 4 ft. 11 in. ss (149.86 cm); Pain 9/10; 15:37 BP 126 / 71; ss 19:58 BP 121 / 67; Pulse 79; Resp 18; Pulse Ox 99% ; Pain 7/10; kb3 15:34 Body Mass Index 41.00 (92.08 kg, 149.86 cm) ss MDM: 15:59 Patient medically screened. cp 19:25 Data reviewed: vital signs, nurses notes, lab test result(s), EKG, radiologic studies, cp plain films. 19:25 Differential diagnosis: chronic back pain, pneumonia, Pneumothorax pulmonary edema, cp Pulmonary Embolism UTI. Test interpretation: by ED physician or midlevel provider: ECG, plain radiologic studies. Counseling: I had a detailed discussion with the patient and/or guardian regarding: the historical points, exam findings, and any diagnostic results supporting the discharge/admit diagnosis, lab results, radiology results, the need for outpatient follow up, a family practitioner, to return to the emergency department if symptoms worsen or persist or if there are any questions or concerns that arise at home. Response to treatment: the patient's symptoms have mildly improved after treatment, and as a result, I will discharge patient. 19:25 Special discussion: Based on the patient's history, exam, and Dx evaluation, there is cp no indication for emergent intervention or inpatient Tx. It is understood by the patient/guardian that if the Sx's persist or worsen they need to return immediately for re-evaluation. 02/28 15:45 Order name: Basic Metabolic Panel; Complete Time: 17:18 02/28 17:19 Interpretation: Normal except: K 3.4; GFR 76. 02/28 15:45 Order name: CBC with Diff; Complete Time: 17:18 02/28 17:19 Interpretation: Normal except: RBC 4.94; HGB 15.1. 02/28 15:45 Order name: D-Dimer; Complete Time: 17:18 cp 02/28 15:45 Order name: Magnesium; Complete Time: 17:18 cp 02/28 15:45 Order name: NT PRO-BNP; Complete Time: 17:18 02/28 15:45 Order name: PT-INR; Complete Time: 17:18 02/28 14:35 Order name: US Extremity Venous W Compression Toney; Complete Time: 16:15 snw 02/28 16:15 Interpretation: Report reviewed. 02/28 15:45 Order name: Troponin HS; Complete Time: 17:19 cp 02/28 15:45 Order name: XRAY Chest (1 view); Complete Time: 17:19 cp 02/28 15:45 Order name: Urine Microscopic Only; Complete Time: 17:18 cp 02/28 16:47 Order name: Urine Dipstick-Ancillary; Complete Time: 17:18 EDMS 02/28 17:20 Order name: CT Aorta for Dissection; Complete Time: 19:02 cp 02/28 19:02 Interpretation: Report reviewed. 02/28 15:45 Order name: EKG; Complete Time: 15:45 cp 02/28 15:45 Order name: Cardiac monitoring 02/28 15:45 Order name: EKG - Nurse/Tech 02/28 15:45 Order name: IV Saline Lock; Complete Time: 16:40 cp 02/28 15:45 Order name: Labs collected and sent; Complete Time: 16:40 cp 02/28 15:45 Order name: O2 Per Protocol 02/28 15:45 Order name: O2 Sat Monitoring 02/28 15:45 Order name: Urine Dipstick-Ancillary (obtain specimen); Complete Time: 16:52 cp EC:25 Rate is 83 beats/min. Rhythm is regular. DC interval is normal. QRS interval is normal. cp QT interval is normal. T waves are Inverted in leads III, aVR. Interpreted by me. Reviewed by me. Administered Medications: 18:32 Drug: Decadron - Dexamethasone 10 mg Route: IVP; Site: right antecubital; iw 19:56 Follow up: Response: No adverse reaction kb3 18:32 Drug: Zofran (Ondansetron) 4 mg Route: IVP; Site: right antecubital; iw 19:56 Follow up: Response: No adverse reaction kb3 19:56 Drug: Potassium Effervescent Tablet 25 mEq Route: PO; kb3 19:56 Follow up: Response: No adverse reaction; Medication administered at discharge. kb3 Disposition: 03/01 17:34 Co-signature as Attending Physician, Sam Faust MD. Co-signature as Attending rt Physician, Sam Faust MD I agree with the assessment and plan of care. Disposition Summary: 02/28/22 19:26 Discharge Ordered Location: Home cp Problem: new cp Symptoms: have improved cp Condition: Stable cp Diagnosis - Lumbago with sciatica cp - Chest pain, unspecified cp - Shortness of breath cp Followup: cp - With: - When: 2 - 3 days - Reason: Recheck today's complaints Discharge Instructions: - Discharge Summary Sheet cp - Nonspecific Chest Pain, Adult cp - Sciatica cp - Shortness of Breath, Adult cp - Aspirin and Your Heart cp Forms: - Medication Reconciliation Form cp - Thank You Letter cp - Antibiotic Education cp - Prescription Opioid Use cp Prescriptions: - Medrol (Kamran) 4 mg Oral Tablets, Dose Pack - take 1 tablet by ORAL route as directed - follow package instructions; 1 cp packet; Refills: 0, Product Selection Permitted - methocarbamol 500 mg Oral Tablet - take 1 tablet by ORAL route 3 times per day; 30 tablet; Refills: 0, Product cp Selection Permitted Signatures: Dispatcher [employer] Maite Langston, RN Tri Sargent RN RN Marcos Church PA PA cp Katelyn Hwang RN RN kb3 Sam Faust MD MD rt
[2022-02-28] MEDS ORDERED: POTASSIUM 25 MEQ EFFERV TAB ONE (19:47)
[2022-03-01 13:26] VITALS: TEMP 98.4; O2SAT 99
[2022-03-01 13:28] VITALS: BP 121/67
--- NOTE | 2022-03-03 15:04 | EKG ---
Test Date: 2022-02-28 Test Time: 19:23:05 Manager Med Surg: KRISTEL MEASUREMENT RESULTS: Intervals: Rate: 83 VT: 144 QRSD: 68 QT: 392 QTc: 460 [place]: P: 25 VT: 144 QRS: -2 T: 12 INTERPRETIVE STATEMENTS: Normal sinus rhythm Normal ECG Compared to ECG 01/14/2021 08:06:50 No significant changes Electronically Signed On 03-03-22 14:57:54 DEADENER by Ramon Peña
== END 2022-02-28 19:59 | disposition home or self-care (01) ==
LOC: ER 14:10
DX: M54.40 Lumbago with sciatica, unspecified side (principal); R07.89 Other chest pain; R06.02 Shortness of breath; I10 Essential (primary) hypertension; Z98.82 Breast implant status; Z85.3 Personal history of malignant neoplasm of breast
CPT/HCPCS: 93005; 85025; 80048; 36415; 83735; 85610; 85379; 84484; 83880; 71275; 74175; 71045; 93970; 96375; 96374; 99284; Q9967; J1100; J2405; 81003; 81015

== ENCOUNTER 2023-02-21 10:29 | Emergency (ER) | payer OTHER ==
--- OUTSIDE RECORDS SUMMARY | 2023-02-21 10:33 | XMS REPORT | Clinical Summary ---
:1965 Author Organization [facility] MD [facility] Address [address] [place] [address] Care Team Providers Name Role Phone Justin Smith MD Primary Care Provider Meghann Daigle MD Unavailable [phone] Calixto Arroyo MD Unavailable Ajay Veliz DO Unavailable Allergies No known active allergies Medications Medication Sig Dispensed Refills Start End Date Status Date traMADol (ULTRAM) Take 1 tablet 30 tablet 0 Active 50 mg (50 mg) by 1 tabletIndications: mouth every 6 Infiltrating duct (six) hours as carcinoma of upper needed for outer quadrant of moderate pain. left female breast Linzess 290 mcg cap Take 1 capsule 0 Active by mouth as 1 needed. zolpidem (AMBIEN) Take 1 tablet 0 Active 10 mg tablet (10 mg) by 2 mouth nightly as needed. cholecalciferol, Take 1 tablet 0 Active vitamin D3, (5,000 Units) 2 (Vitamin D3) 5,000 by mouth units tab daily. OTC tabletIndications: Infiltrating duct carcinoma, 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; Left> letrozole (FEMARA) Take 1 tablet 90 tablet 3 Active 2.5 mg (2.5 mg) by 3 tabletIndications: mouth daily. Infiltrating duct carcinoma, 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; Left> gabapentin Take 1 capsule 0 Acti ve (NEURONTIN) 300 mg (300 mg) by 3 capsule mouth. UNABLE TO FIND Med 0 Activ e Name:migraine medication pregabalin (Lyrica) Take 1 capsule 60 capsule 0 01/21 Discontinued 150 mg (150 mg) by 2 23 (Not Richard licable) capsuleIndications: mouth twice Drug-induced daily.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 atorvastatin TAKE ONE (1) 0 08/05/19 Disc ontinued (LIPITOR) 10 mg TABLET(S) BY 2 23 ( Therapy tablet MOUTH ONCE A complet ed) DAY. lisinopriL-hydrochl TAKE ONE (1) 0 0 Discontinued orothiazide TABLET(S) BY 2 23 (Ther apy (PRINZIDE,ZESTORETI MOUTH ONCE A completed) C) 10-12.5 mg per DAY. tablet divalproex TAKE 1 TABLET 0 08/05/19 Disco ntinued (DEPAKOTE) 125 mg BY MOUTH EVERY 2 23 (Not Applicable) DR tablet 8 HOURS letrozole (FEMARA) Take 1 tablet 90 tablet 3 0 Discontinued 2.5 mg (2.5 mg) by 2 23 (Reorder ) tabletIndications: mouth daily. Infiltrating duct carcinoma, 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; Left> ergocalciferol Take 1 capsule 8 capsule 0 09/24/19 (Vitamin D2) 50,000 (50,000 Units) 3 23 units by mouth every capsuleIndications: 7 days for 8 Vitamin D doses. 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 Cancer Staging: Pathologic: Stage IB (pT 2, pN0(sn), cM0, G3, ER+, AR+, HER2-, Oncotype DX score: 43) - Unsigned Encounters Date Type Department Care Team Description 02/05/2023 Follow-Up MD Escobar Heredia, Infiltrat ing duct 1:40 PM [facility] Thoracic MD Justin carcinoma, N OS of Medicine upper-outer [address] quadrant o f breast South <Female; Left> [place] [address] 02/05/2023 Travel 09/29/2022 Telemedicine Irene Ernst ating duct 11:00 AM CDT [facility], PROGRAM/MUSIC DIRECTOR carcinoma of upper [address] [place] [address] Darinel, John outer qu adrant of South J, [place] [address] 08/20/2022 Telemedicine Irene Ernst ating duct 1:40 PM CDT [facility], PROGRAM/MUSIC DIRECTOR carcinoma, NOS of [address] [place] [address] upper-oute r South quadrant of breast [place], [place] <Female; Lef t> [id number] 08/13/2022 Ancillary Procedure Irene Ernst 10:30 AM CDT [facility], PROGRAM/MUSIC DIRECTOR [address] [place] [address] South 2nd [place] [address] 08/13/2022 Ancillary Procedure Irene Ernst Infiltrating duct 8:00 AM CDT [facility], PROGRAM/MUSIC DIRECTOR carcinoma, NOS of [address] [place] [address] upper-oute r South quadrant of breast 2nd Floor <Female; Left> [place] [address] 08/13/2022 Travel 08/07/2022 Telephone MD Escobar Heredia, Follow-up (pt Cal Anderson MD called in [address] [place] [address] requesting a phone South call from the team [place] regarding im aging [phone] appts scheduled on [phone] 08/13. she says she was under the impression that she didn't need thi s imaging until 1 8 months from now .) 08/04/2022 Follow-Up MD Escobar Heredia, Vitamin D deficiency, not otherwise specified (Primary Dx); 10:20 AM CDT Cal Anderson MD Infiltrating duct carcinoma, 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; Left> Medicine [address] [place] [address] 08/04/2022 Travel 07/28/2022 Orders Only Irene Ernst ating duct [facility], PROGRAM/MUSIC DIRECTOR carcinoma of upper [address] [place] [address] outer quad rant of South left female [place], [place] (Primary Dx) [id number] 07/25/2022 Telephone Bella Vang Kelsey ics testing [facility] - Thoracic Mona RN request Medicine [address] [place] [address], [place] [address] 07/23/2022 Ancillary Procedure MD Escobar Heredia, In filtrating duct 9:50 AM CDT Cal Adnerson MD carcinoma, NOS of [address] [place] [address] upper-oute r South quadrant of breast 2nd Floor <Female; [place] [address] 07/23/2022 Ancillary Procedure MD Escobar Heredia, In filtrating duct 8:30 AM CDT Cal Anderson MD carcinoma, NOS of [address] [place] [address] upper-oute r South quadrant of breast 2nd Floor <Female; [place] [address] 07/23/2022 Ancillary Procedure MD Escobar Heredia, In filtrating duct 7:15 AM CDT Cal Anderson MD carcinoma, NOS of [address] [place] [address] r South quadrant of breast 2nd Floor <Female; [place] [address] 07/23/2022 Travel 06/20/2022 Telephone Cal Dill Edda Anderson MD [address] [place] [address] 4th [place] [address] 04/11/2022 Telephone Cal Dill MD [address] [place] [address], [place] [address] 04/11/2022 Refill Irene Ernst Infiltr ating duct [facility], PROGRAM/MUSIC DIRECTOR carcinoma of upper [address] [place] [address] outer quad rant of South [place] [address] 04/11/2022 Telephone Cal Dill MD [address] [place] [address], [place] [address] after 02/21/2022 Immunizations Name Administration Dates Next Due Pfizer [...] Family History Medical History Relation Name Comments Breast cancer Maternal Aunt 1 dx. 70's Colon cancer Maternal Grandfather dx. 60's Lung cancer Maternal Uncle 2 70s+smoker Colon cancer Other 1 dx. 70 Lymphoma Son follicular Relation Name Status Comments [...] Alive No nieces/nephew s with cancer history Other 1 Alive Other 2 Alive Other 3 Alive Paternal Aunt Alive 4 aunts no cance r Paternal Grandfather Paternal Grandmother Paternal Uncle Alive 3 uncles no canc er Sister Alive Son Alive Social History Tobacco Use Types Packs/Day Years Used Date Smoking Tobacco: Never Smokeless Tobacco: Never Alcohol Use Standard Drinks/Week Comments Never 0 (1 standard drink = 0.6 oz pure alcoho l) Sex and Gender Information Value Date Recorded Sex Assigned at Not on file Gender Identity Not on file Sexual Orientation Not on file Job Start Date Occupation Industry Not on file Not on file Not on file Obstetrics History Last Filed Vital Signs Vital Sign Reading Time Taken Comments Blood Pressure 134/90 02/05/2023 1:05 PM [facility] Pulse 89 02/05/2023 1:05 PM [facility] Temperature 36.8 C (98.2 F) 02/05/2023 1:05 PM [facility] Respiratory Rate 16 02/05/2023 1:05 PM [facility] Oxygen Saturation 98% 02/05/2023 1:05 PM [facility] Inhaled Oxygen Concentration - - Weight 59.1 kg (130 lb 4.7 oz) 02/05/2023 1:05 PM [facility] Height 147.3 cm (4' 9.99") 08/13/2022 8:16 AM CDT Body Mass Index 27.24 08/13/2022 8:16 AM CDT Plan of Treatment Date Type Department Care Team Description 08/06/2023 Lab Irene Ernst 12:00 PM CDT [facility] [address] [place] [address] 77 030 [facility] [phone] 1st Floor (Work) [place] [address] 08/06/2023 1:10 Ancillary Procedure Vinay Ernst er PM CDT [address] [address] 2nd Floor [phone] [place], [place] (Work) [id number] [phone] 08/06/2023 2:25 Ancillary Procedure Vinay Ernst er PM CDT [address] [address] 2nd Floor [phone] [place] (Work) [address] [phone] 08/07/2023 1:00 Follow-Up MD Escobar Heredia, PM CDT [facility] Thoracic MD Justin Medicine [address] [place] [address] 77 030 [facility] [phone] [place], [place] (Work) [address] [phone] Health Maintenance Due Date Last Done Comments COVID-19 Vaccination (3 - Pfizer risk 12/07/2020 11/09/2020 , 10/19/2020 series) Procedures Procedure Name Priority Date/Time Associated Comments Diagnosis .CBC Routine 02/05/2023 12:55 Infiltrating duct Result s for this PM [facility] carcinoma, NOS of procedure are in upper-outer the results quadrant of breast section. <Female; Left> VITAMIN D 25 HYDROXY Routine 02/05/2023 12:55 Infiltrating ramakrishna t Results for this LEVEL PM [facility] carcinoma, NOS of procedure are in upper-outer the results quadrant of breast section. <Female; Left> URIC ACID Routine 02/05/2023 12:55 Infiltrating duct Result s for this PM [facility] carcinoma, NOS of procedure are in upper-outer the results quadrant of breast section. <Female; Left> PHOSPHORUS LEVEL Routine 02/05/2023 12:55 Infiltrating duct Re sults for this PM [facility] carcinoma, NOS of procedure are in upper-outer the results quadrant of breast section. <Female; Left> MAGNESIUM LEVEL Routine 02/05/2023 12:55 Infiltrating duct Res ults for this PM [facility] carcinoma, NOS of procedure are in upper-outer the results quadrant of breast section. <Female; Left> LACTATE DEHYDROGENASE Routine 02/05/2023 12:[address] Results for this PM [facility] carcinoma, NOS of procedure are in upper-outer the results quadrant of breast section. <Female; Left> COMPREHENSIVE METABOLIC Routine 02/05/2023 12:55 Infiltrating duct Results for this PANEL PM [facility] carcinoma, NOS of procedure are in upper-outer the results quadrant of breast section. <Female; Left> COMPLETE BLOOD COUNT W/ Routine 02/05/2023 12:55 Infiltrating duct Results for this DIFFERENTIAL PM [facility] carcinoma, NOS of procedure are in upper-outer the results quadrant of breast section. <Female; Left> NM BONE SCAN WHOLE BODY Routine 08/13/2022 11:10 Infiltrating duct Results for this AM CDT carcinoma, NOS of procedure are in upper-outer the results quadrant of breast section. <Female; Left> DEXA BONE MINERAL Routine 07/23/2022 9:20 Infiltrating duct Re sults for this DENSITY BOTH HIPS AND AM CDT carcinoma, NOS of p rocedure are in SPINE upper-outer the results quadrant of breast section. <Female; Left> US CHEST/INFRACLAV Routine 07/23/2022 8:44 Infiltrating duct R esults for this AM CDT carcinoma, NOS of procedure are in upper-outer the results quadrant of breast section. <Female; Left> US BREAST COMPLETE Routine 07/23/2022 8:44 Infiltrating duct R esults for this BILATERAL AM CDT carcinoma, NOS of procedure are in upper-outer the results quadrant of breast section. <Female; Left> MAMMO DIGITAL DIAGNOSTIC Routine 07/23/2022 7:51 Infiltrating duct Results for this BILATERAL W PARTH AM CDT carcinoma, NOS of proced ure are in upper-outer the results quadrant of breast section. <Female; Left> FRACTIONATED BILIRUBIN Routine 07/23/2022 6:[address] Results for this AM CDT carcinoma, NOS of procedure are in upper-outer the results quadrant of breast section. <Female; Left> TOTAL PROTEIN Routine 07/23/2022 6:42 Infiltrating duct Result s for this AM CDT carcinoma, NOS of procedure are in upper-outer the results quadrant of breast section. <Female; Left> ASPARTATE Routine 07/23/2022 6:42 Infiltrating duct Results for this AMINOTRANSFERASE AM CDT carcinoma, NOS of proced ure are in upper-outer the results quadrant of breast section. <Female; Left> ALANINE AMINOTRANSFERASE Routine 07/23/2022 6:42 Infiltrating duct Results for this AM CDT carcinoma, NOS of procedure are in upper-outer the results quadrant of breast section. <Female; Left> ALKALINE PHOSPHATASE Routine 07/23/2022 6:42 Infiltrating duct Results for this AM CDT carcinoma, NOS of procedure are in upper-outer the results quadrant of breast section. <Female; Left> ALBUMIN LEVEL Routine 07/23/2022 6:42 Infiltrating duct Result s for this AM CDT carcinoma, NOS of procedure are in upper-outer the results quadrant of breast section. <Female; Left> CALCIUM LEVEL Routine 07/23/2022 6:42 Infiltrating duct Result s for this AM CDT carcinoma, NOS of procedure are in upper-outer the results quadrant of breast section. <Female; Left> .GLOMERULAR FILTRATION Routine 07/23/2022 6:[address] Results for this RATE AM CDT carcinoma, NOS of procedure are in upper-outer the results quadrant of breast section. <Female; Left> SERUM CREATININE Routine 07/23/2022 6:42 Infiltrating duct Res ults for this AM CDT carcinoma, NOS of procedure are in upper-outer the results quadrant of breast section. <Female; Left> ELECTROLYTE PANEL Routine 07/23/2022 6:42 Infiltrating duct Re sults for this AM CDT carcinoma, NOS of procedure are in upper-outer the results quadrant of breast section. <Female; Left> BLOOD UREA NITROGEN Routine 07/23/2022 6:42 Infiltrating duct Results for this AM CDT carcinoma, NOS of procedure are in upper-outer the results quadrant of breast section. <Female; Left> GLUCOSE LEVEL Routine 07/23/2022 6:42 Infiltrating duct Result s for this AM CDT carcinoma, NOS of procedure are in upper-outer the results quadrant of breast section. <Female; Left> DIFFERENTIAL Routine 07/23/2022 6:42 Infiltrating duct Results for this AM CDT carcinoma, NOS of procedure are in upper-outer the results quadrant of breast section. <Female; Left> .CBC Routine 07/23/2022 6:42 Infiltrating duct Results for this AM CDT carcinoma, NOS of procedure are in upper-outer the results quadrant of breast section. <Female; Left> LACTATE DEHYDROGENASE Routine 07/23/2022 6:42 Infiltrating ramakrishna t Results for this AM CDT carcinoma, NOS of procedure are in upper-outer the results quadrant of breast section. <Female; Left> PHOSPHORUS LEVEL Routine 07/23/2022 6:42 Infiltrating duct Res ults for this AM CDT carcinoma, NOS of procedure are in upper-outer the results quadrant of breast section. <Female; Left> MAGNESIUM LEVEL Routine 07/23/2022 6:42 Infiltrating duct Resu lts for this AM CDT carcinoma, NOS of procedure are in upper-outer the results quadrant of breast section. <Female; Left> COMPREHENSIVE METABOLIC Routine 07/23/2022 6:42 Infiltrating d uct PANEL AM CDT carcinoma, 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; Left> COMPLETE BLOOD COUNT W/ Routine 07/23/2022 6:42 Infiltrating d uct DIFFERENTIAL AM CDT carcinoma, 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; Left> VITAMIN D 25 HYDROXY Routine 07/23/2022 6:42 Infiltrating duct Results for this LEVEL AM CDT carcinoma, NOS of procedure are in upper-outer the results quadrant of breast section. <Female; Left> after 02/21/2022 Results (ABNORMAL) .CBC (02/05/2023 12:55 PM [facility])Only the most recent of2 resultswithin the time period is included. [facility] Method Time Signature White Blood Cell 6.6 4.1 - 02/05/2023 [facility] 10.5 K/uL 12:59 PM [facility] Red Blood Cell 4.80 3.99 - 02/05/2023 [facility] 5.46 M/uL 12:59 PM [facility] Hemoglobin 14.8 12.2 - 02/05/2023 [facility] 15.3 g/dL 12:59 PM [facility] Hematocrit 43.4 36.4 - 02/05/2023 [facility] 46.8 % 12:59 PM [facility] Mean Cell Volume 90 82 - 99 02/05/2023 [facility] fL 12:59 PM [facility] Mean Cell 30.8 26.6 - 02/05/2023 [facility] Hemoglobin 33.2 pg 12:59 PM [facility] Mean Cell 34.1 31.1 - 02/05/2023 [facility] Hemoglobin 35.2 g/dL 12:59 PM [facility] Concentration RDW-SD 40.6 37.5 - 02/05/2023 [facility] 49.7 fL 12:59 PM [facility] Red Cell Diameter 12.0 11.6 - 02/05/2023 [facility] Width 15.5 % 12:59 PM [facility] Platelet 261 160 - 397 02/05/2023 [facility] K/uL 12:59 PM [facility] Mean Platelet 9.8 9.1 - 02/05/2023 [facility] Volume 12.6 fL 12:59 PM [facility] Neutrophil % 64.7 43.2 - 02/05/2023 [facility] 72.7 % 12:59 PM [facility] Lymphocyte % 26.1 16.8 - 02/05/2023 [facility] 46.2 % 12:59 PM [facility] Monocyte % 8.4 5.1 - 02/05/2023 [facility] 12.5 % 12:59 PM [facility] Eosinophil % 0.3 (L) 0.4 - 6.3 02/05/2023 [facility] % 12:59 PM [facility] Basophil % 0.3 0.2 - 1.4 02/05/2023 [facility] % 12:59 PM [facility] IGRE % 0.2 0.1 - 1.5 02/05/2023 [facility] % 12:59 PM [facility] Comment: The IGRE% includes Metamyelocyt es, Myelocytes and Promyelocytes. Neutrophil Abs 4.29 1.95 - 7.25 K/uL 02/05/2023 12:59 P M [facility] Lymphocyte Abs 1.73 1.01 - 3.24 K/uL 02/05/2023 12:59 P M [facility] Monocyte Abs 0.56 0.24 - 0.85 K/uL 02/05/2023 12:59 PM [facility] Eosinophil Abs 0.02 0.02 - 0.50 K/uL 02/05/2023 12:59 P M [facility] Basophil Abs 0.02 0.02 - 0.09 K/uL 02/05/2023 12:59 PM [facility] IG Abs 0.01 0.01 - 0.12 K/uL 02/05/2023 12:59 PM [facility] Specimen Anatomical Collection Method / Collection Time Recei shanika Time (Source) Location / Volume Laterality Blood Venipuncture / 02/05/2023 12:55 3 Unknown PM [facility] 12:55 PM [facility] Irene Sherman PROGRAM/MUSIC DIRECTOR LAB BLOOD ORDERABLES Performing Organization Address City/State/ZIP Code Phon e Number [facility] [place] [address] [place] [address] [facility], [facility] [address] (ABNORMAL) Comprehensive Metabolic Panel (02/05/2023 12:55 PM [facility]) P athologist Signature Bilirubin Total 1.2 <=1.2 mg/dL 02/05/2023 [facility] 1:17 PM [facility] Comment: Indocyanine Green (ICG) may cause falsel y elevated bilirubin results. Total and direct bilirubin must not be measured from samples containing indocyanine green. False elevation of total bilirubin can be seen in patients with IgG concentration s above 28 g/L. This result was previously suppressed fr om the chart. Bilirubin Direct 0.5 (H) <=0.3 mg/dL 02/05/2023 1:17 PM CS T [facility] Comment: Indocyanine Green (ICG) may cause falsel y elevated bilirubin results. Total and direct bilirubin must not be measured from samples containing indocyanine green. This result was previously suppressed fr om the chart. Bilirubin Indirect 0.7 0.0 - 0.9 mg/dL 02/05/2023 1:17 PM [facility] Comment: This result was previously supp ressed from the chart. eGFR 103 >=60 mL/min/1.73 sq. m 02/05/2023 1:17 P M [facility] Comment: The eGFRcr is calculated with the 2020 KD-EPI creatinine equation using creatinine, patient's age, and sex for adults 18 years of age and older. Other factors, especially muscle mass, may affect accuracy and need to be considered. According to the Kidney Disease: Improvi ng Global Outcomes (KDIGO) CKD Work Group 2012 Clinical Practice Guideline, chronic kidney disease (CKD) is defined as the abnormalities of kidney structure or fu nction, present for more than 3 months, with implications for health. CKD should be classified by cause, GFR category, and albuminuria category. KDIGO guidelines provide the following GFR categories. Stage / Description / GFR mL/min/1.73 m2 : G1* / Normal or high / >= 90 G2* / Mildly decreased / 60-89 G3a / Mildly to moderately decreased / 4 5-59 G3b / Moderately to severely decreased / 30-44 G4 / Severely decreased / 15-29 G5 / Kidney failure / <15 *In the absence of evidence of kidney da mage, neither G1 nor G2 fulfill criteria for CKD. Tot Protein 7.0 6.4 - 8.3 gm/dL 02/05/2023 1:17 PM [facility] Comment: This result was previously supp ressed from the chart. Calcium Level Total 9.3 8.2 - 10.2 mg/dL 02/05/2023 1: 17 PM [facility] Comment: This result was previously supp ressed from the chart. Alkaline Phosphatase 80 35 - 104 U/L 02/05/2023 1:17 PM [facility] Comment: This result was previously supp ressed from the chart. Albumin Level 4.4 3.5 - 5.2 gm/dL 02/05/2023 1:17 PM [facility] Comment: This result was previously supp ressed from the chart. AST 25 <=32 U/L 02/05/2023 1:17 PM [facility] Comment: This result was previously supp ressed from the chart. ALT 15 <=33 U/L 02/05/2023 1:17 PM [facility] Comment: This result was previously supp ressed from the chart. Sodium Level 140 136 - 145 mmol/L 02/05/2023 1:[address] [facility] Comment: This result was previously supp ressed from the chart. Potassium Level 4.2 3.4 - 4.5 mmol/L 02/05/2023 1:17 P M [facility] Comment: This result was previously supp ressed from the chart. Chloride 100 98 - 107 mmol/L 02/05/2023 1:17 PM [facility] L [facility] Comment: This result was previously supp ressed from the chart. CO2 24 22 - 29 mmol/L 02/05/2023 1:17 PM [facility] Comment: This result was previously supp ressed from the chart. Anion Gap 16 (H) 4 - 14 mmol/L 02/05/2023 1:17 PM [facility] Comment: This result was previously supp ressed from the chart. Creatinine 0.67 0.51 - 0.95 mg/dL 02/05/2023 1:17 PM CS T [facility] Comment: This result was previously supp ressed from the chart. BUN 9 6 - 23 mg/dL 02/05/2023 1:17 PM [facility] Comment: This result was previously supp ressed from the chart. Glucose Level 82 70 - 99 mg/dL 02/05/2023 1:17 PM [facility] Comment: Effective 10/17/15, the glucose reference intervals have been updated based on [place] [employer] guidelines (Standards of Medical Care in Diabetes 2016. Diabetes Care 2016; 39: S13-S22). Fasting blood glucose: Normal: 70-99 mg/dL Impaired fasting glucose (increased risk for diabetes or pre-diabetes): 100-125 mg/dL Diabetes mellitus: >/=126 mg/dL Random blood glucose: Normal: 70-199 mg/dL Note: Random glucose >100 mg/dL is assoc iated with increased risk for diabetes. This result was previously suppressed fr om the chart. Specimen Anatomical Collection Method / Collection Time Recei shanika Time (Source) Location / Volume Laterality Blood Venipuncture / 02/05/2023 12:55 3 Unknown PM [facility] 12:55 PM [facility] Irene Sherman PROGRAM/MUSIC DIRECTOR LAB BLOOD ORDERABLES Performing Organization Address City/[facility]/ZIP Code Phon e Number [place], [place] [id number] [place] [address], [facility] [address] (ABNORMAL) Vitamin D 25OH (02/05/2023 12:55 PM [facility])Only the most recent of2 resultswithin the time period is included. athologist Signature Vitamin D 25 OH 25 (L) 30 - 100 02/05/2023 [facility] ng/mL 1:56 PM [facility] Specimen Anatomical Collection Method / Collection Time Recei shanika Time (Source) Location / Volume Laterality Blood Venipuncture / 02/05/2023 12:55 3 Unknown PM [facility] 12:55 PM [facility] Narrative [facility] - 02/05/2023 1:56 PM [facility] Reference Range: Deficiency: <=20 ng/mL Insufficiency: 21-29 ng/mL Sufficiency: 30-100 ng/mL Potential toxicity: >100 ng/mL Irene Sherman PROGRAM/MUSIC DIRECTOR LAB BLOOD ORDERABLES Performing Organization Address City/[facility]/ZIP Code Phon e Number [place], [place] [id number] [place] [address], [facility] [address] Uric Acid (02/05/2023 12:55 PM [facility]) athologist Signature Uric Acid 5.3 2.4 - 5.7 02/05/2023 1:17 [facility] mg/dL PM [facility] Specimen Anatomical Collection Method / Collection Time Recei shanika Time (Source) Location / Volume Laterality Blood Venipuncture / 02/05/2023 12:55 3 Unknown PM JEWEL BEARING TURNER 12:55 PM JEWEL BEARING TURNER Irene Sherman PROGRAM/MUSIC DIRECTOR LAB BLOOD ORDERABLES Performing Organization Address City/[facility]/ZIP Code Phon e Number [place], [place] [address] [place] [address], [facility] [address] Phosphorus Level (02/05/2023 12:55 PM JEWEL BEARING TURNER)Only the most recent of2 resultswithin the time period is included. athologist Signature Phosphorus Level 3.6 2.5 - 4.5 02/05/2023 HAYES mg/dL 1:17 PM JEWEL BEARING TURNER Specimen Anatomical Collection Method / Collection Time Recei shanika Time (Source) Location / Volume Laterality Blood Venipuncture / 02/05/2023 12:55 3 Unknown PM JEWEL BEARING TURNER 12:55 PM JEWEL BEARING TURNER Irene Sherman APRN LAB BLOOD ORDERABLES Performing Organization Address [facility]/[address], [facility] [address] Magnesium Level (02/05/2023 12:55 PM JEWEL BEARING TURNER)Only the most recent of2 resultswithin the time period is included. athologist Signature Magnesium Level 2.0 1.6 - 2.6 02/05/2023 HAYES mg/dL 1:17 PM JEWEL BEARING TURNER Specimen Anatomical Collection Method / Collection Time Recei shanika Time (Source) Location / Volume Laterality Blood Venipuncture / 02/05/2023 12:55 3 Unknown PM JEWEL BEARING TURNER 12:55 PM JEWEL BEARING TURNER Irene Sherman APRN LAB BLOOD ORDERABLES Performing Organization Address City/[facility]/[address], [facility] [address] (ABNORMAL) LDH (02/05/2023 12:55 PM JEWEL BEARING TURNER)Only the most recent of2 resultswithin the time period is included. athologist Signature LDH 302 (H) 135 - 214 02/05/2023 HAYES U/L 1:17 PM JEWEL BEARING TURNER Specimen Anatomical Collection Method / Collection Time Recei shanika Time (Source) Location / Volume Laterality Blood Venipuncture / 02/05/2023 12:55 3 Unknown PM JEWEL BEARING TURNER 12:55 PM JEWEL BEARING TURNER Narrative HAYES - 02/05/2023 1:17 PM JEWEL BEARING TURNER Results greater than 1651 U/L may not be reliable due to matrix effect with extended dilution as it exceeds the capping machine operator' s recommended limit. Caution should be exercised when interpreting such values and done in conjunction with clinical context. Irene Sherman APRN LAB BLOOD ORDERABLES Performing Organization Address City/State/ZIP Code Phon e Number SHILOH CARRASCO [facility] [place] [address] SHILOH CARRASCO [address] [facility], [facility] [address] NM Bone Scan Whole Body (08/13/2022 11:10 AM CDT) Anatomical Region Laterality Modality Whole Body Nuclear Medicine Specimen (Source) Anatomical Collection Method Collection Time Re ceived Time Location / / Volume Laterality 08/13/2022 1:53 PM CDT Impressions 08/13/2022 1:54 PM CDT No scintigraphic evidence for osseous metastasis. Narrative 08/13/2022 1:54 PM CDT FULL RESULT: Examination: Whole-Body Bone Scan, 2022 11:10 AM Clinical History: Breast cancer Indication: Restaging evaluation for oss eous metastasis Comparison: 08/15/2020 Technique: Following the intravenous adm inistration of 22 mCi of technetium-99m MDP, anterior and posterior delayed whole body planar images were acquired. Findings: Heterogeneity tracer uptake in the thoracic lumbar spine, probably degenerative. Otherwise no abnormal tracer uptake in the osseous structure to suggest metastasis. Both kidneys and bladder visualized. Procedure Note Phan Saez MD - 08/13/2022Formatting of t his note might be different from the original. FULL RESULT: Examination: Whole-Body Bone Scan, 2022 11:10 AM Clinical History: Breast cancer Indication: Restaging evaluation for oss eous metastasis Comparison: 08/15/2020 Technique: Following the intravenous adm inistration of 22 mCi of technetium-99m MDP, anterior and posterior delayed whole body planar images were acquired. Findings: Heterogeneity tracer uptake in the thoracic lumbar spine, probably degenerative. Otherwise no abnormal tracer uptake in the osseous structure to suggest metastasis. Both kidneys and bladder visualized. IMPRESSION: No scintigraphic evidence for osseous me tastasis. Irene Sherman APRN IMG NM ORDERABLES NM Bone Mineral Density Both Hips and Spine (07/23/2022 9:20 AM CDT) Anatomical Region Laterality Modality Spine Nuclear Medicine Specimen (Source) Anatomical Collection Method Collection Time Re ceived Time Location / / Volume Laterality 07/23/2022 9:21 AM CDT Impressions 07/23/2022 11:54 AM CDT 1. Osteopenia based on measurements of the lumbar spine and left forearm. 2. Statistically significant interval decrease in bone mineral density of the bilateral total hips, left femoral neck and left forearm. I personally reviewed these image(s) phuong baca with the resident's/fellow's interpretations, certify that if a procedure was performed I was physically present, and agree with the final report. Narrative 07/23/2022 11:54 AM CDT FULL RESULT: Examination: Bone Mineral Density (DXA), 07/23/2022 12:00 AM Clinical History: 57-year-old postmenopa usal female treated for left breast invasive ductal carcinoma. Indication: Evaluation of bone mineral d ensity. Comparison: DEXA from 05/18/2020 Technique: Bone mineral density was obta ined using Hologic dual-energy X-ray absorptiometry. The left forearm is included in analysis due to patient body habitus. Findings: The findings are provided in t he below table(s). Bone Density: Region Exam Date BMD T- Z- g/cm2 Score Score AP Spine (L1-L4) 07/23/2022 0. 890 -1.4 -0.3 Femoral Neck (Left) 07/23/2022 0. 776 -0.7 0.4 Total Hip (Left) 07/23/2022 0. 917 -0.2 0.5 Femoral Neck (Right) 07/23/2022 0. 736 -1.0 0.1 Total Hip (Right) 07/23/2022 0. 871 -0.6 0.1 / Forearm (Left) 07/23/2022 0. 596 -1.5 -0.5 For postmenopausal women and men age 50 and over, the World Health Organization criteria for BMD interpreta tion classify patients as: Normal (T-score at or above -1.0), Osteopenia ( T-score between -1.0 and -2.5), or Osteoporosis (T-score at or be low -2.5). Previous Exams: Region Exam Age BMD T-score B MD Change vs Date g/cm2 Baseline Previous AP Spine (L1-L4) 07/23/2022 57 0.890 -1.4 -2.2% -2.2% 05/18/2020 55 0.910 -1.2 Total Hip(Left) 07/23/2022 57 0.917 -0.2 -9.9%* -9.9%* 05/18/2020 55 1.018 0.6 Femoral Neck(Left) 07/23/2022 57 0.776 -0.7 -8.6%* -8.6%* 05/18/2020 55 0.849 0.0 Total Hip(Right) 07/23/2022 57 0.871 -0.6 -10.0%* -10.0%* 05/18/2020 55 0.967 0.2 Femoral Neck(Right) 07/23/2022 57 0.736 -1.0 -5.2% -5.2% 05/18/2020 55 0.776 -0.7 1/3 Forearm(Left) 07/23/2022 57 0.596 -1.5 -5.8%* -5.8%* 05/18/2020 55 0.632 -0.9 *Denotes significance at 95% confidence level, site specific LSC for AP Spine = 0.029 g/cm2, site specific LSC for Tot al Hip = 0.033 g/cm2, site specific LSC for Femoral Neck = 0.045 g/cm2, LSC for 1/3 Forearm = 0.023 g/cm2 Procedure Note Bandar Trimble MD - 07/23/2022Formattin g of this note might be different from the original. FULL RESULT: Examination: Bone Mineral Density (DXA), 07/23/2022 12:00 AM Clinical History: 57-year-old postmenopa usal female treated for left breast invasive ductal carcinoma. Indication: Evaluation of bone mineral d ensity. Comparison: DEXA from 05/18/2020 Technique: Bone mineral density was obta ined using Hologic dual-energy X-ray absorptiometry. The left forearm is included in analysis due to patient body habitus. Findings: The findings are provided in t he below table(s). Bone Density: Region Exam Date BMD T- Z- g/cm2 Score Score AP Spine (L1-L4) 07/23/2022 0.890 -1.4 -0.3 Femoral Neck (Left) 07/23/2022 0.776 -0.7 0.4 Total Hip (Left) 07/23/2022 0.917 -0.2 0.5 Femoral Neck (Right) 07/23/2022 0.736 -1.0 0.1 Total Hip (Right) 07/23/2022 0.871 -0.6 0.1 1/3 Forearm (Left) 07/23/2022 0.596 -1.5 -0.5 For postmenopausal women and men age 50 and over, the World Health Organization criteria for BMD interpreta tion classify patients as: Normal (T-score at or above -1.0), Osteopenia ( T-score between -1.0 and -2.5), or Osteoporosis (T-score at or be low -2.5). Previous Exams: Region Exam Age BMD T-score BMD Change v s Date g/cm2 Baseline Previous AP Spine (L1-L4) 07/23/2022 57 0.890 -1.4 -2.2% -2.2% 05/18/2020 55 0.910 -1.2 Total Hip(Left) 07/23/2022 57 0.917 -0.2 -9.9%* -9.9%* 05/18/2020 55 1.018 0.6 Femoral Neck(Left) 07/23/2022 57 0.776 -0.7 -8.6%* -8.6%* 05/18/2020 55 0.849 0.0 Total Hip(Right) 07/23/2022 57 0.871 -0.6 -10.0%* -10.0% * 05/18/2020 55 0.967 0.2 Femoral Neck(Right) 07/23/2022 57 0.736 -1.0 -5.2% -5.2% 05/18/2020 55 0.776 -0.7 1/3 Forearm(Left) 07/23/2022 57 0.596 -1.5 -5.8%* -5.8%* 05/18/2020 55 0.632 -0.9 *Denotes significance at 95% confidence level, site specific LSC for AP Spine = 0.029 g/cm2, site specific LSC for Tot al Hip = 0.033 g/cm2, site specific LSC for Femoral Neck = 0.045 g/cm2, LSC for 1/3 Forearm = 0.023 g/cm2 IMPRESSION: 1. Osteopenia based on measurements of t he lumbar spine and left forearm. 2. Statistically significant interval de crease in bone mineral density of the bilateral total hips, left femoral neck and left forearm. I personally reviewed these image(s) phuong baca with the resident's/fellow's interpretations, certify that if a procedure was performed I was physically present, and agree with the final report. Justin Heredia MD IMG DXA ORDERABLES US Chest/Infraclav for Breast Ultrasound (Add-on Only) (07/23/2022 8:44 AM CDT) Anatomical Region Laterality Modality Chest Ultrasound Specimen (Source) Anatomical Collection Method Collection Time Re ceived Time Location / / Volume Laterality 07/23/2022 8:48 AM CDT Impressions 07/23/2022 8:48 AM CDT There is no evidence of malignancy. Follow-up mammogram in 1 year is recomme nded. BI-RADS Category 2: Benign Finding(s) These results and recommendations were p ersonally discussed with the patient at the time of the examination. Narrative 07/23/2022 8:48 AM CDT CLINICAL INDICATION: Patient is a 57 year old female and is s een for history of breast cancer FILMS COMPARED The present examination has been compare d to prior imaging studies performed at [facility] o n 07/05/2021 and 07/23/2022. Images were obtained in multiple scannin g planes. There are bilateral pre-pectoral silicon e gel implants. There is a post surgical scar in the lef t breast outer hemisphere at 3 o'clock located 6 centimeters from the nipple. There is no sonographic evidence of tumor recurrence. There is no evidence of any solid mass o r other abnormality in the right breast. Left Regional Brendon Basins: No suspic ious axillary levels I, II, III (infraclavicular) or internal mammary ly mph node is identified. Procedure Note Angel Pastor MD - 07/23/2022 CLINICAL INDICATION: Patient is a 57 year old female and is s een for history of breast cancer FILMS COMPARED The present examination has been compare d to prior imaging studies performed at [facility] o n 07/05/2021 and 07/23/2022. Images were obtained in multiple scannin g planes. There are bilateral pre-pectoral silicon e gel implants. There is a post surgical scar in the lef t breast outer hemisphere at 3 o'clock located 6 centimeters from the nipple. T here is no sonographic evidence of tumor recurrence. There is no evidence of any solid mass o r other abnormality in the right breast. Left Regional Brendon Basins: No suspiciou s axillary levels I, II, III (infraclavicular) or internal mammary ly mph node is identified. IMPRESSION: There is no evidence of malignancy. Follow-up mammogram in 1 year is recomme nded. BI-RADS Category 2: Benign Finding(s) These results and recommendations were p ersonally discussed with the patient at the time of the examination. Justin Heredia MD IMG US ORDERABLES US Breast Complete Bilateral (07/23/2022 8:44 AM CDT) Anatomical Region Laterality Modality Breast Bilateral Ultrasound Specimen (Source) Anatomical Collection Method Collection Time Re ceived Time Location / / Volume Laterality 07/23/2022 8:48 AM CDT Impressions 07/23/2022 8:48 AM CDT There is no evidence of malignancy. Follow-up mammogram in 1 year is recomme nded. BI-RADS Category 2: Benign Finding(s) These results and recommendations were p ersonally discussed with the patient at the time of the examination. Narrative 07/23/2022 8:48 AM CDT CLINICAL INDICATION: Patient is a 57 year old female and is s een for history of breast cancer FILMS COMPARED The present examination has been compare d to prior imaging studies performed at [facility] o n 07/05/2021 and 07/23/2022. Images were obtained in multiple scannin g planes. There are bilateral pre-pectoral silicon e gel implants. There is a post surgical scar in the lef t breast outer hemisphere at 3 o'clock located 6 centimeters from the nipple. There is no sonographic evidence of tumor recurrence. There is no evidence of any solid mass o r other abnormality in the right breast. Left Regional Brendon Basins: No suspic ious axillary levels I, II, III (infraclavicular) or internal mammary ly mph node is identified. Procedure Note Angel Pastor MD - 07/23/2022 CLINICAL INDICATION: Patient is a 57 year old female and is s een for history of breast cancer FILMS COMPARED The present examination has been compare d to prior imaging studies performed at [facility] o n 07/05/2021 and 07/23/2022. Images were obtained in multiple scannin g planes. There are bilateral pre-pectoral silicon e gel implants. There is a post surgical scar in the lef t breast outer hemisphere at 3 o'clock located 6 centimeters from the nipple. T here is no sonographic evidence of tumor recurrence. There is no evidence of any solid mass o r other abnormality in the right breast. Left Regional Brendon Basins: No suspiciou s axillary levels I, II, III (infraclavicular) or internal mammary ly mph node is identified. IMPRESSION: There is no evidence of malignancy. Follow-up mammogram in 1 year is recomme nded. BI-RADS Category 2: Benign Finding(s) These results and recommendations were p ersonally discussed with the patient at the time of the examination. Justin Heredia MD IMG US ORDERABLES Mammography Digital Diagnostic Bilateral with Parth (07/23/2022 7:51 AM CDT) Anatomical Region Laterality Modality Breast Bilateral Mammography Specimen (Source) Anatomical Collection Method Collection Time Re ceived Time Location / / Volume Laterality 07/23/2022 8:48 AM CDT Impressions 07/23/2022 8:48 AM CDT There is no mammographic evidence of malignancy. Follow-up mammogram in 1 year is recomme nded. BI-RADS Category 2: Benign Finding(s) Narrative 07/23/2022 8:48 AM CDT CLINICAL INDICATION: Patient is a 57 year old female and is s een for history of breast cancer MAMMO DIGITAL DIAGNOSTIC BILATERAL W EZEQUIEL O Digital Mammogram evaluated with Compute r Aided Detection (CAD). COMPARISON: The present examination has been compare d to prior imaging studies performed at an outside location on 05/29/2016, 07/24, 05/27/2019 and 08/22/2019, and at [facility] n 07/05/2021. FINDINGS: The breasts are heterogeneously dense, w [...] ations with scattered distribution in both breasts. Patient is status bilate ral mastopexy. Tomosynthesis performed in CC and MLO pr ojections. Procedure Note Angel Pastor MD - 07/23/2022 CLINICAL INDICATION: Patient is a 57 year old female and is s een for history of breast cancer MAMMO DIGITAL DIAGNOSTIC BILATERAL W EZEQUIEL O Digital Mammogram evaluated with Compute r Aided Detection (CAD). COMPARISON: The present examination has been compare d to prior imaging studies performed at an outside location on 05/29/2016, 07/24, 05/27/2019 and 08/22/2019, and at [facility] o n 07/05/2021. FINDINGS: The breasts are heterogeneously dense, w [...] ions with scattered distribution in both breasts. Patient is status bilatera l mastopexy. Tomosynthesis performed in CC and MLO pr ojections. IMPRESSION: There is no mammographic evidence of mal ignancy. Follow-up mammogram in 1 year is recomme nded. BI-RADS Category 2: Benign Finding(s) Justin Heredia MD IMG MAMMOGRAPHY ORDERABLES .Serum Creatinine (07/23/2022 6:42 AM CDT) athologist Signature Creatinine 0.75 0.51 - 0.95 HAYES mg/dL Comment: Testing performed at [facility], [address] [place] [address], [place] [address] Specimen Anatomical Collection Method Collection Time Receive d Time (Source) Location / / Volume Laterality Blood 07/23/2022 6:42 AM 6:42 CDT AM CDT Justin Heredia MD LAB BLOOD ORDERABLES Performing Organization Address City/State/[facility] [place] [address], [facility] [address] Glomerular Filtration Rate (07/23/2022 6:42 AM CDT) P athologist Signature eGFR 94 >=60 HAYES mL/min/1.73 sq. m Comment: The eGFRcr is calculated with the 2020 KD-EPI creatinine equation using creatinine, patient's age, and sex for adults 18 years of age and older. Other factors, especially muscle mass, may affect accuracy and need to be considered. According to the Kidney Disease: Improvi ng Global Outcomes (KDIGO) CKD Work Group 2012 Clinical Practice Guideline, chronic kidney disease (CKD) is defined as the abnormalities of kidney structure or function, present for more than 3 months, with implications for health. CKD should be c lassified by cause, GFR category, and albuminuria category. KDIGO guidelines provide the following GFR categories Stage Description GFR mL/min/1.73 m2 G1* Normal or high >= 90 G2* Mildly decreased 60-89 G3a Mildly to moderately decreased 45-59 G3b Moderately to severely decreased 30- 44 G4 Severely decreased 15-29 G5 Kidney failure <15 *In the absence of evidence of kidney da mage, neither G1 nor G2 fulfill criteria for CKD. Testing performed at [facility], [address] [place] [address] Specimen Anatomical Collection Method Collection Time Receive d Time (Source) Location / / Volume Laterality Blood 07/23/2022 6:42 AM 6:42 CDT AM CDT Justin Heredia MD LAB BLOOD ORDERABLES Performing Organization Address City/[facility] [place] [address], [facility] [address] Fractionated Bilirubin (07/23/2022 6:42 AM CDT) P athologist Signature Bili Total 0.4 <=1.2 mg/dL HAYES Comment: Indocyanine Green (ICG) may cause falsel y elevated bilirubin results. Total and direct bilirubin must not be measured from samples containing indocyanine green. False elevation of total bilirubin can b e seen in patients with IgG concentrations above 28 g/L. Testing performed at [facility], [address] [place] [address] Bili Direct <0.2 <=0.3 mg/dL HAYES Comment: Indocyanine Green (ICG) may cause falsel y elevated bilirubin results. Total and direct bilirubin must not be measured from samples containing indocyanine green. Testing performed at [facility], [address] [place] [address], [place] [address] Bili Indirect See Note 0.0 - 0.9 mg/dL [facility] Comment: Unable to calculate Indirect Bilirubin r esult due to some parameters are outside reportable range Testing performed at [facility], [address] [place] [address], [place] [address] Specimen Anatomical Collection Method Collection Time Receive d Time (Source) Location / / Volume Laterality Blood 07/23/2022 6:42 AM 6:42 CDT AM CDT Justin Heredia MD LAB BLOOD ORDERABLES Performing Organization Address City/State/ZIP Code Ph[place] [address], [facility] [address] (ABNORMAL) Differential (07/23/2022 6:42 AM CDT) athologist Signature Neutrophil % 53.9 42.0 - 66.0 HAYES % Comment: All components of the Different ial performed at [facility], [address] [place] [address] Lymphocyte % 33.8 24.0 - 44.0 % HAYES Comment: As part of the Differential trey ting performed at [facility], [address] [place] [address] Monocyte % 9.7 (H) 2.0 - 7.0 % HAYES Comment: As part of the Differential trey ting performed at [facility], [address] [place] [address] Eosinophil % 2.0 1.0 - 4.0 % HAYES Comment: As part of the Differential trey ting performed at [facility], [address] [place] [address] Basophil % 0.4 0.0 - 1.0 % HAYES Comment: As part of the Differential trey ting performed at [facility], [address] [place] [address] IGRE % 0.2 0.0 - 0.4 % HAYES Comment: IGRE % count includes Metamyelocytes, My elocytes, and Promyelocytes. As part of the Differential testing perf ormed at [facility], [address] [place] [address] Neutrophil Abs 2.68 1.70 - 7.30 K/uL [facility] Comment: As part of the Differential trey ting performed at [facility], [address] [place] [address] Lymphocyte Abs 1.68 1.00 - 4.80 K/uL [facility] Comment: As part of the Differential trey ting performed at [facility], [address] [place] [address] Monocyte Abs 0.48 0.08 - 0.70 K/uL [facility] Comment: As part of the Differential trey ting performed at [facility], [address] [place] [address] Eosinophil Abs 0.10 0.04 - 0.40 K/uL [facility] Comment: As part of the Differential trey ting performed at [facility], [address] [place] [address] Basophil Abs 0.02 0.00 - 0.10 K/uL [facility] Comment: As part of the Differential trey ting performed at [facility], [address] [place] [address] IG Abs 0.01 0.00 - 0.04 K/uL HAYES Comment: As part of the Differential trey ting performed at [facility], [address] [place] [address] Specimen Anatomical Collection Method Collection Time Receive d Time (Source) Location / / Volume Laterality Blood 07/23/2022 6:42 AM 3 6:42 CDT AM CDT Justin Heredia MD LAB BLOOD ORDERABLES Performing Organization Address City/State/ZIP Code [place] [address], [facility] [address] BUN (07/23/2022 6:42 AM CDT) P athologist Signature BUN 10 6 - 23 mg/dL HAYES Comment: Testing performed at [facility], [address] [place] [address] Specimen Anatomical Collection Method Collection Time Receive d Time (Source) Location / / Volume Laterality Blood 07/23/2022 6:42 AM 3 6:42 CDT AM CDT Justin Heredia MD LAB BLOOD ORDERABLES Performing Organization Address City/[facility]/ZIP Code Phon e Number [place], [place] [id number] [place] [address], [facility] [address] ALT (07/23/2022 6:42 AM CDT) P athologist Signature ALT 19 <=33 U/L HAYES Comment: Testing performed at [facility], [address] [place] [address] Specimen Anatomical Collection Method Collection Time Receive d Time (Source) Location / / Volume Laterality Blood 07/23/2022 6:42 AM 3 6:42 CDT AM CDT Justin Heredia MD LAB BLOOD ORDERABLES Performing Organization Address City/State/[place] [address] [place] [address] Aspartate Aminotransferase (07/23/2022 6:42 AM CDT) P athologist Signature AST 22 <=32 U/L HAYES Comment: Testing performed at [facility], [address] [place] [address] Specimen Anatomical Collection Method Collection Time Receive d Time (Source) Location / / Volume Laterality Blood 07/23/2022 6:42 AM 3 6:42 CDT AM CDT Justin Heredia MD LAB BLOOD ORDERABLES Performing Organization Address City/[facility]/ZIP Code Phon e Number [place], [place] [address] [place] [address], [facility] [address] Total Protein (07/23/2022 6:42 AM CDT) athologist [facility] [place] Total Protein 6.7 6.4 - 8.3 HAYES g/dL Comment: Testing performed at [facility], [address] [place] [address] Specimen Anatomical Collection Method Collection Time Receive d Time (Source) Location / / Volume Laterality Blood 07/23/2022 6:42 AM 3 6:42 CDT AM CDT Justin eHredia MD LAB BLOOD ORDERABLES Performing Organization Address City/[facility] Hospital/ZIP Code Phon e Number [place], [place] [id number] [place] [address], [facility] [id number] (ABNORMAL) Alkaline Phosphatase (07/23/2022 6:42 AM CDT) athologist [facility] [place] Alk Phos 113 (H) 35 - 104 HAYES U/L Comment: Testing performed at [facility], [address] [place] [address] Specimen Anatomical Collection Method Collection Time Receive d Time (Source) Location / / Volume Laterality Blood 07/23/2022 6:42 AM 3 6:42 CDT AM CDT Justin Heredia MD LAB BLOOD ORDERABLES Performing Organization Address City/[facility]/ZIP Code Phon e Number [address], [facility] [id number] Glucose Level (07/23/2022 6:42 AM CDT) athologist Signature Glucose Level 93 70 - 99 HAYES mg/dL Comment: Effective 10/17/15, the glucose reference intervals have been updated based on [place] [employer] guidelines (Standards of Medical Care in Diabetes 2016. Diabetes Care 2016; 39: S13-S22). Fasting blood glucose: Normal: 70-99 mg/dL Impaired fasting glucose (increased risk for diabetes or pre-diabetes): 100- 125 mg/dL Diabetes mellitus: >/=126 mg/dL Random blood glucose: Normal: 70-199 mg/dL Note: Random glucose >100 mg/dL is assoc iated with increased risk for diabetes Testing performed at [facility], [address] [place] [address] Specimen Anatomical Collection Method Collection Time Receive d Time (Source) Location / / Volume Laterality Blood 07/23/2022 6:42 AM 6:42 CDT AM CDT Justin Heredia MD LAB BLOOD ORDERABLES Performing Organization Address City/[facility]/ZIP Code Phon e Number [address], [facility] [id number] Calcium Level (07/23/2022 6:42 AM CDT) P athologist Signature Calcium Lvl 9.3 8.4 - 10.2 HAYES mg/dL Comment: Testing performed at [facility], [address] [place] [address] Specimen Anatomical Collection Method Collection Time Receive d Time (Source) Location / / Volume Laterality Blood 07/23/2022 6:42 AM 3 6:42 CDT AM CDT Justin Heredia MD LAB BLOOD ORDERABLES Performing Organization Address City/[facility]/ZIP [facility] Phon e Number [place], [place] [id number] [place] [address], [facility] [id number] Albumin Level (07/23/2022 6:42 AM CDT) P athologist Signature Albumin Lvl 4.3 3.5 - 5.2 HAYES gm/dL Comment: Testing performed at [facility], [address] [place] [address] Specimen Anatomical Collection Method Collection Time Receive d Time (Source) Location / / Volume Laterality Blood 07/23/2022 6:42 AM 3 6:42 CDT AM CDT Justin Heredia MD LAB BLOOD ORDERABLES Performing Organization Address City/State/[place] [address], [place] (ABNORMAL) Electrolyte Panel (07/23/2022 6:42 AM CDT) athologist Signature Sodium Lvl 145 136 - 145 HAYES mEq/L Comment: Testing performed at [facility], [address] [place] [id number] Potassium Lvl 3.7 3.5 - 5.1 mEq/L [facility] Comment: Testing performed at [facility], [address] [place] [id number] Chloride 108 (H) 98 - 107 mEq/L HAYES Comment: Testing performed at [facility], [address] [place] [address] CO2 27 22 - 29 mEq/L HAYES Comment: Testing performed at [facility], [address] [place] [address] Anion Gap 10 4 - 14 mEq/L HAYES Comment: Testing performed at [facility], [address] [place] [address] Specimen Anatomical Collection Method Collection Time Receive d Time (Source) Location / / Volume Laterality Blood 07/23/2022 6:42 AM 3 6:42 CDT AM CDT Justin Heredia MD LAB BLOOD ORDERABLES Performing Organization Address City/State/[place] [address], [facility] [id number] after 02/21/2022 Insurance Payer Benefit Plan / Subscriber ID Effective Dates Phone Addre ss Type Group 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
--- OUTSIDE RECORDS SUMMARY | 2023-02-21 10:54 | XMS REPORT | Continuity of Care Document ---
:1965 Author Organization [facility] t Address [address] [place] [address] Care Team Providers Name Role Phone No, Pcp [facility] Primary Care Physician Unavailable Ajay Walker Attending Clinician Unavailable Reema Lehman Attending Clinician Unavailable SYSTEM, PROVIDER NOT IN Attending Clinician Unavailable AGUSTIN BOWMAN Attending Clinician Unavailable AMPARO OROPEZA Attending Clinician Unavailable Chris Rodgers MD Attending Clinician Justin Smith MD Attending Clinician IRENE SHERMAN Attending Clinician Unavailable [email or web address] Attending Clinician Unavailable Agustin Bowman MD Attending Clinician [phone] [facility] Main Attending Clinician Unavailable Abdon Arias MD Attending Clinician ABDON ARIAS Attending Clinician Unavailable Doctor Unassigned, [place] Attending Clinician Unavailable Irene Sherman APRN Attending Clinician [phone] Darinel ARITA John J Attending Clinician Per Urena PA-C Attending Clinician Sheyla Kaur MD Attending Clinician [phone] SHEYLA KAUR Attending Clinician Unavailable Stacia Costa MA Attending Clinician Unavailable Glenn COLE, Bella Dunn Attending Clinician Unavailable JUSTIN SMITH Attending Clinician Unavailable TARAH WALKER Attending Clinician Unavailable Callie Jay MA Attending Clinician Unavailable Ann-Marie Tan MD Attending Clinician LUIS AN Attending Clinician Unavailable LUIS AN Attending Clinician Unavailable Luis An MD Attending Clinician Bernabe Starkey MD Attending Clinician Wali Miles CRNA Attending Clinician [phone] VERONIKA LUCERO Attending Clinician Unavailable IDANIA RAMOS Attending Clinician Unavailable Veronika Lucero MD Attending Clinician [facility] Attending Clinician Unavailable CHARITY FLORES Attending Clinician Unavailable Charity Flores MD Attending Clinician CHRIS RODGERS Attending Clinician Unavailable CHRIS RODGERS Attending Clinician Unavailable Ana SINGER Attending Clinician Unavailable Ana Rutherford Attending Clinician MEGHANN BLAKELY Attending Clinician Unavailable SURENDRA CHICAS Attending Clinician Unavailable Surendra Chicas MD Attending Clinician Meghann Blakely MD Attending Clinician Dennis Sherman Attending Clinician Janusz Turcios DO Attending Clinician Elodia Gan RN, Callie Attending Clinician Unavailable Only, Lcc Test Attending Clinician Unavailable NICOLLE DIMAS Attending Clinician Unavailable Andrew Bright MD Attending Clinician PARKER CAMPOVERDE Attending Clinician Unavailable Only, Adc Test Attending Clinician Unavailable Hubert Knight LMSW Attending Clinician Unavailable RADIOLOGY Attending Clinician Unavailable Radiology Attending Clinician Unavailable Aubree Carr MD Attending Clinician 1, [facility] Lab Attending Clinician Unavailable PATIENCE HUNG Attending Clinician Unavailable [email or web address] Admitting Clinician Unavailable AGUSTIN BOWMAN Admitting Clinician Unavailable Ana SINGER Admitting Clinician Unavailable SURENDRA CHICAS Admitting Clinician Unavailable Meghann Blakely MD Admitting Clinician MEGHANN BLAKELY Admitting Clinician Unavailable REEMA LEHMAN Admitting Clinician Unavailable Payers Payer Name Policy Type Policy Number Effective Date Expiration Date S [facility] [id number] 2022 SELECT CHOICE 00:00:00 [place] [id number] 2021 HEALTHCARE PPO 00:00:00 [place] [id number] HEALTHCARE BCBS OS [id number] 2021 POS/PPO/EPO 00:00:00 [facility] [id number] Common [facility] Blue Cross Blue 6 [id number] [facility] Blue Cross Blue 6 [id number] 2017 [facility] 00:00:00 [facility] [place] PPO POS [id number] 2020 00:00:00 Problems Condition Condition Condition Status Onset Resolution Last Treating Co mments Source Name Details Category Date Date Treatment Clinician Date Morbid Morbid Disease Recurre 2021-03 [facility] obesity obesity nce 2-27 [facility] with BMI with BMI 00:00: Medica l of of 00 Center 40.0-44.9, 40.0-44.9, adult adult 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 [place] upper 00 MD outer outer Anderso quadrant quadrant n of left of left Cancer female female Center breast breast E66.9 - E66.9 - Diagnosis Active 2016-10-03 Memoria "OBESITY, "OBESITY, 09-29 09:13:00 l UNSPECIFIE UNSPECIFIE 00:01: He erinn D" Z71.3 - D" Z71.3 - 00 D D Active 09/29/2016 JYOTHI CRUZ [place] Type 2 Type 2 Disease Active 2014-03 Univers diabetes diabetes 1-11 ity of mellitus mellitus 00:00: [place] without without 00 Medical complicati complicati Br anch on on Essential Essential Disease Active 2014-03 Uni vers hypertensi hypertensi -11 it y of on on 00:00: [place] 00 Medical Branch Abnormal Abnormal Disease Active Unive rs weight weight 3-17 ity of gain gain 00:00: [place] 00 Medical Branch Headache Headache Disease Active Overview: Un austin 3-17 Formattin ity of 00:00: g of this [place] 00 note Medical might be Branch different from the original. ICD10 Diagnosis Term Gospel Singer Utility Fatigue Fatigue Disease Active Univers 3-17 ity of 00:00: [place] 00 Medical Branch 788.33 788.33 Diagnosis Active 2012-032013-01-05 Me moria Active 004 07:50:00 l 12/24/2012 00:00: Raheem childers [address] [id number] Type II Problem Common diabetes Spirit mellitus, - CHI well [facility] Hypertensi Hypertensi Problem C ommon on on, Spirit unspecifie - CHI d [facility] Anxiety Anxiety Problem Common Spirit [facility] Edema Edema Problem Common Spirit [facility] Hyperlipid Hyperlipid Problem C ommon emia emia, Spirit unspecifie - CHI d hyperlipid [facility] [id number] Uncontroll Problem Co mmon ed type 2 Spirit diabetes - CHI mellitus with [facility] hyperglyce Medica l [facility] [id number] Vitamin D Problem Comm on deficiency Spirit [facility] [id number] Decreased Problem Com mon hearing of Spirit both ears - [facility] Disorder Thyroid Problem Common of thyroid condition Spi rit gland - [facility] [id number] Port-a-cat Problem Co mmon h in place Spirit [facility] Migraine Migraine Problem Commo n without Spirit status - CHI migrainosu [facility] intractabl Medica l e, Center unspecifie d migraine type Irritable IBS Problem Common bowel (irritable Spirit syndrome bowel - CHI syndrome) [facility] [id number] Body mass Problem Com mon index Spirit [BMI] - [facility] 33.0-33.9, [facility] [id number] Nausea and Problem Com mon vomiting, Spirit intractabi - [facility] lity [facility] not Medical specified, Center unspecifie d vomiting type [id number] Mixed Problem Common hyperlipid [facility] emia [facility] [id number] Hypothyroi Problem Com mon dism, Spirit unspecifie - CHI d type [facility] [id number] Abdominal Problem Comm on pain, Spirit unspecifie - CHI d abdominal [facility] [id number] Depression Problem Com mon , Spirit unspecifie - CHI d depression [facility] [id number] S/P Problem Commo n 9100 lumpectomy [facility] , left - [facility] breast [facility] Abnormal Abnormal Problem Commo n mammogram mammogram Spir it [facility] [id number] Malignant Problem Com mon neoplasm Spirit of left - [facility] unspecifie Medica l d estrogen Center receptor status, unspecifie d site of breast [id number] Acute Problem Common left-sided Spirit back pain, - CHI unspecifie [facility] back [facility] [id number] Gastroesop Problem Co mmon hageal Spirit reflux - CHI disease, esophagiti [facility] s presence Medica l not Center specified [id number] Dietary Problem Commo n surveillan Spirit ce and - CHI counseling [facility] [id number] Primary Problem Comm on osteoarthr Spirit itis of - CHI left knee [facility] [id number] Coughing Problem Commo n Spirit - CHI [facility] [id number] Upper Problem Common respirator Spirit y tract - CHI infection, unspecifie [facility] d [facility] [id number] Nausea Problem Common without Spirit vomiting - CHI [facility] [id number] Dizziness Problem Com mon Spirit - CHI [facility] [id number] Irritable Problem Com mon bowel Spirit syndrome - [facility] [id number] Insomnia, Problem Com mon unspecifie Spirit d type - CHI [facility] [id number] Other Problem Common obesity Spirit due to - CHI excess [facility] [id number] Memory Problem Common changes Spirit - CHI [facility] [id number] Unable to Problem Comm on concentrat Spirit e - CHI [facility] [id number] Arthritis Problem Co mmon [id number] of right Spirit knee - CHI [facility] [id number] [place] [address] osteoarthr Spirit itis of - CHI right knee [facility] [id number] Arthritis Problem Co mmon 388817 of both Spirit knees - CHI [facility] [id number] Drug-induc Problem Comm on ed [facility] polyneurop - CHI athy [facility] [id number] Morbid Problem Commo n 9104 (severe) Spirit obesity - CHI due to excess [facility] Diabetes Diabetes Problem Active 2021-08-13 Memoria mellitus mellitus 00:41:52 l (disorder) (disorder) He rmann Active Problem 08/13/2021 [facility] Hyperchole Hyperchol Problem Active 2021-08-13 Memoria sterolemia esterolemi 00:41:52 l (disorder) a Raheem n (disorder) Active Problem 08/13/2021 [facility], [place], OPID [place] Low back Low back Problem Active 2021-08-13 Memoria pain pain 00:41:52 l (disorder) (disorder) He rmann Active Problem 08/13/2021 [facility] Malignant Malignant Problem Active 2021-08-13 Memoria tumor of tumor of 00:41:52 l breast breast [place] (disorder) (disorder) Active Problem 08/13/2021 [facility] Morbid Morbid Problem Active 2021-08-13 Stu dipak obesity obesity 00:41:52 l (disorder) (disorder) He rmann Active Problem 08/13/2021 Medical [facility] Peripheral Periphera Problem Active 2021-08-13 Memoria nerve l nerve 00:41:52 l disease disease [place] (disorder) (disorder) Active Problem 08/13/2021 [facility] Urinary Urinary Problem Active 2021-08-13 M emoria incontinen incontinen 00:41:52 l ce ce [place] (finding) (finding) Active Problem 08/13/2021 [facility], [place], OPID [place] Allergies, Adverse Reactions, Alerts Allergy Allergy Status Severity Reaction(s) Onset Inactive Treating Comm ents Source Name Type Date Date Clinician NO KNOWN Drug Active Univers ALLERGIE Class ity of S [facility] NO KNOWN Allergy Active SLSL ALLERGIE S Family History Family Member Diagnosis Comments Start Date Stop Date Source Natural brother [facility] Ca ncer Center Natural daughter Universi [facility] [place] Ca ncer Center Natural father [facility] Ca n[facility] Grandchild [facility] Ca [facility] Maternal aunt Breast cancer Universi [facility] [place] Ca ncer Center Maternal cousin [facility] Ca ncer Center Maternal grandfather Colon [facility] Maternal grandmother [facility] [facility] Maternal uncle [facility] Ca ncer Center Natural mother [facility] Ca ncer Center Niece/nephew University o f [facility] Ca ncer Center Other Colon cancer University o [facility] Ca ncer Center Paternal aunt [facility] Ca ncer Center Paternal grandfather [facility] Ca ncer [place] Paternal grandmother [facility] [facility] Paternal uncle [facility] Ca ncer Center Natural sister [facility] Ca ncer Center Natural son Lymphoma [facility] Ca ncer Center Social History Social Habit Start Date Stop Date Quantity Comments Source Gender identity Universit y [facility] History of Tobacco Common Spirit - Use [facility] Sexual orientation [facility] History SDOH [facility] Alcohol Std Drinks Medica l Center History SDOH [facility] Alcohol Binge Medical [facility] ter History SDOH [facility] Alcohol Comment Medical C enter Tobacco use and 2023-01-29 2023-01-29 Smokeless Universit y of exposure 00:00:00 00:00:00 tobacco non-user [facility] dical Branch Alcohol intake 2022-12-08 2022-12-[address] [facility] 00:00:00 00:00:00 non-drinker Medical Cente r (finding) History of Social 2022-12-08 2022-12-[address] [facility] function 00:00:00 00:00:00 [facility] Exposure to 2022-01-31 2022-02-[address] [facility] SARS-CoV-2 (event) 00:00:00 13:58:00 Medica l Center History SDOH 2022-02-10 2022-02-[address] [facility] Alcohol Frequency 00:00:00 00:00:00 [facility] Social History 2020-06-06 2020-06-06 [facility] 20:59:27 20:59:27 Sex Assigned At [birth year] [facility] Nadja whites 00:00:00 00:00:00 [facility] Smoking Status Start Date Stop Date Source Never smoked tobacco [facility] Medications Ordered Filled Start Stop Current Ordering Indication Dosage Frequency Signature Comments Components Source Medication Medication Date Date Medication? Clinician (SIG) Name Name UNABLE TO 2022-03 Yes Med Univers FIND 04-07 Name:migra ity of 13:23: [facility] 26 medication MD Marry childers [facility] UNABLE TO 2022-03 Yes Med Univers FIND 04-07 Name:migra ity of 13:23: ine [place] 26 [facility] zolpidem 5 2022-03- No 5mg Take 5 mg U nivers mg tablet 03-31 by mouth ity o f 10:27: 00:00 at bedtime [place] 50 :00 as needed Medical for Branch Insomnia. zolpidem 5 2022-03- No 5mg Take 5 mg U nivers mg tablet 03-31 by mouth ity o f 10:27: 00:00 at bedtime [place] 50 :00 as needed Medical for Branch Insomnia. lisinopriL- 2022-03- No 1 tablet U nivers hydrochloro 03-31 ity of thiazide 10:27: 00:00 [place] 10-12.5 mg 35 :00 Medical per tablet Branch lisinopriL- 2022-03- No 1 tablet U nivers hydrochloro 03-31 ity of thiazide 10:27: 00:00 [place] 10-12.5 mg 35 :00 Medical per tablet Branch linaCLOtide 2022-03- No Unive rs (LINZESS) 03-31 ity of 290 mcg Cap 10:27: 00:00 [place] 32 :00 Medical Branch linaCLOtide 2022-03- No Unive rs (LINZESS) 03-31 ity of 290 mcg Cap 10:27: 00:00 [place] 32 :00 Medical Branch divalproex 2022-03 Yes [id number] 125mg Take 1 Univers 125 mg EC 1-09 tablet by ity o f tablet 00:00: mouth [place] 00 every 12 Medical (twelve) Branch hours. gabapentin 2022-03 Yes [id number] 300mg Take 1 Univers 300 mg 1-09 capsule by ity of capsule 00:00: mouth in [place] 00 the Medical morning Branch and 1 capsule at noon and 1 capsule in the evening. divalproex 2022-03 Yes [id number] 125mg Take 1 Univers 125 mg EC 1-09 tablet by ity o f tablet 00:00: mouth [place] 00 every 12 Medical (twelve) Branch hours. gabapentin 2022-03 Yes [id number] 300mg Take 1 Univers 300 mg 1-09 capsule by ity of capsule 00:00: mouth in [place] 00 the Medical morning Branch and 1 capsule at noon and 1 capsule in the evening. divalproex 2022-03 Yes [id number] 125mg Take 1 Univers 125 mg EC 1-09 tablet by ity o f tablet 00:00: mouth [place] 00 every 12 Medical (twelve) Branch hours. gabapentin 2022-03 Yes [id number] 300mg Take 1 Univers 300 mg 1-09 capsule by ity of capsule 00:00: mouth in [place] 00 the Medical morning Branch and 1 capsule at noon and 1 capsule in the evening. gabapentin 2022-03 Yes 300mg Take 1 Univ ers (NEURONTIN) - capsule ity o f 300 mg 00:00: (300 mg) [place] capsule 00 by mouth. MD [facility] gabapentin 2022-03 Yes 300mg Take 1 Univ ers (NEURONTIN) - capsule ity o f 300 mg 00:00: (300 mg) [place] capsule 00 by mouth. MD Marry childers [facility] DULoxetine 2022-03- Yes [id number] Take 1 Univers 30 mg 03-31 capsule by ity of capsule 00:00: 05:59 mouth 2 [place] 00 :00 (two) Medical times Branch daily for 7 days, THEN 2 capsules 2 (two) times daily for 60 days. DULoxetine 2022-03- Yes [id number] Take 1 Univers 30 mg 03-31 capsule by ity of capsule 00:00: 05:59 mouth 2 [place] 00 :00 (two) Medical times Branch daily for 7 days, THEN 2 capsules 2 (two) times daily for 60 days. DULoxetine 2022-03- Yes [id number] Take 1 Univers 30 mg 03-31 capsule by ity of capsule 00:00: 05:59 mouth 2 [place] 00 :00 (two) Medical times Branch daily for 7 days, THEN 2 capsules 2 (two) times daily for 60 days. pantoprazol 2023- Yes 40mg QD Take [address] [facility] 12-09 tablet (40 [facility]ukes (Protonix) 00:00: 23:59 mg total) M edical 40 MG 00 :00 by mouth Center tablet daily. pantoprazol 2023- Yes 40mg QD Take [address] [facility] 12-09 tablet (40 [facility] (Protonix) 00:00: 23:59 mg total) M edical 40 MG 00 :00 by mouth Center tablet daily. ondansetron 2022- No 4mg Take [address] (ZOFRAN-ODT 12-09 tablet (4 Nadja kes ) 4 MG 00:00: 23:59 mg total) Medic al disintegrat 00 :00 by mouth Cent er ing tablet every 8 (eight) hours as needed for Nausea for up to 7 days. ondansetron 2022- No 4mg Take [address] (ZOFRAN-ODT 12-09 09- tablet (4 Nadja kes ) 4 MG 00:00: 23:59 mg total) Medic al disintegrat 00 :00 by mouth Cent er ing tablet every 8 (eight) hours as needed for Nausea for up to 7 days. Pregabalin Pregabalin 2022-0 No 1{capsu BID Pregabalin 225 MG 225 MG 8-15 le} 225 MG 00:00: 00 Ambien 10 Ambien 10 2022-0 No QD Ambien 10 MG MG 8-15 MG 00:00: 00 Pregabalin Pregabalin 2022-0 No 1{capsu BID Pregabalin 225 MG 225 MG 8-15 le} 225 MG 00:00: 00 Ambien 10 Ambien 10 2022-0 No QD Ambien 10 MG MG 8-15 MG 00:00: 00 Pregabalin Pregabalin 2022-0 No 1{capsu BID Pregabalin 225 MG 225 MG 8-15 le} 225 MG 00:00: 00 Ambien 10 Ambien 10 2022-0 No QD Ambien 10 MG MG 8-15 MG 00:00: 00 Pregabalin Pregabalin 2022-0 No 1{capsu BID Pregabalin 225 MG 225 MG 8-15 le} 225 MG 00:00: 00 Ambien 10 Ambien 10 2022-0 No QD Ambien 10 MG MG 8-15 MG 00:00: 00 Pregabalin Pregabalin 2022-0 No Pregabalin 225 MG 225 MG 7-28 225 MG 00:00: 00 Pregabalin Pregabalin 2022-0 No Pregabalin 225 MG 225 MG 7-28 225 MG 00:00: 00 Pregabalin Pregabalin 2022-0 No Pregabalin 225 MG 225 MG 7-28 225 MG 00:00: 00 Pregabalin Pregabalin 2022-0 No Pregabalin 225 MG 225 MG 7-28 225 MG 00:00: 00 lisinopriL 2022-0 Yes 10mg Take 1 CHI S t (PRINIVIL,Z 09-21 tablet (10 Nadja kes ESTRIL) 10 13:28: mg total) Me dical MG tablet 43 by mouth. Cente r multivitami 2022-0 Yes 1{capsu QD Take [address] n capsule 09-21 le} capsule by Luke s 13:28: mouth Medical 43 daily. Center CALCIUM 3-0 Yes Take by [facility] CITRATE 7-02 mouth. [facility]ukes ORAL 13:28: [address] cyanocobala 2022-0 Yes 1000ug QD Take [address] min 7-02 tablet Lukes (VITAMIN 13:28: (1,000 mcg Med ical B-12) 1000 43 total) by Cent er MCG tablet mouth daily. BIOTIN ORAL 2022-0 Yes Take by [facility] 7-02 mouth. Lukes 13:28: [address] multivitami 2022-0 Yes 1{capsu QD Take [address] n capsule 7-02 le} capsule by Luke s 13:28: mouth Medical 43 daily. [place] CALCIUM 2022-0 Yes Take by [facility] CITRATE 7-02 mouth. Lukes ORAL 13:28: [address] cyanocobala 2022-0 Yes 1000ug QD Take [address] min 7-02 tablet Lukes (VITAMIN 13:28: (1,000 mcg Med ical B-12) 1000 43 total) by Cent er MCG tablet mouth daily. BIOTIN ORAL 2022-0 Yes Take by [facility] 7-02 mouth. [facility]ukes 13:28: [address] lisinopriL 2022-0 Yes 10mg Take 1 CHI S t (PRINIVIL,Z 7-02 tablet (10 Nadja kes ESTRIL) 10 13:28: mg total) Me dical MG tablet 43 by mouth. Cente r ibuprofen 3-0 Yes 800mg Take 1 CHI S t (ADVIL,MOTR 7-02 tablet Lukes IN) 800 MG 00:00: (800 mg Medi ami tablet 00 total) by Center mouth every 8 (eight) hours as needed for Pain. methocarbam 2023-0 Yes 750mg Take [address] oL 7-02 tablet Lukes (ROBAXIN) 00:00: (750 mg Medic al 750 MG 00 total) by Center tablet mouth 3 (three) times daily as needed (muscle spasm). ibuprofen 2023-0 Yes 800mg Take 1 CHI S t (ADVIL,MOTR 7-02 tablet Lukes IN) 800 MG 00:00: (800 mg Medi ami tablet 00 total) by Center mouth every 8 (eight) hours as needed for Pain. methocarbam 2023-0 Yes 750mg Take [address] oL 7-02 tablet [facility]ukes (ROBAXIN) 00:00: (750 mg Medic al 750 MG 00 total) by Center tablet mouth 3 (three) times daily as needed (muscle spasm). ergocalcife 2023-0 Yes [id number] Q7D Take [address] rol 6-12 capsule [facility]ukes (ERGOCALCIF 14:04: (50,000 Med ical CHLOE) 1,250 42 Units Center mcg (50,000 total) by unit) mouth once capsule a week. ergocalcife 2023-0 Yes [id number] Q7D Take [address] rol 6-12 capsule [facility]ukes (ERGOCALCIF 14:04: (50,000 Med ical CHLOE) 1,250 42 Units Center mcg (50,000 total) by unit) mouth once capsule a week. traMADol traMADol 2022-0 No 1{table traMADol HCl 50 MG HCl 50 MG 6-05 t_as_ne HCl 50 MG 00:00: eded} 00 Kenalog Kenalog 2022-0 No 1mL Common (Triamcinol (Triamcinol 6-05 S pirit one) one) 00:00: - [facility] Bupivicaine Bupivicaine 2022-0 No 4mL Common [place] 6-05 Spirit 00:00: - [facility] Bupivicaine Bupivicaine 2022-0 No 4mL Common [place] 6-05 Spirit 00:00: - [facility] Kenalog Kenalog 2022-0 No 1mL Common (Triamcinol (Triamcinol 6-05 S pirit one) one) 00:00: - [facility] traMADol traMADol 2022-0 No 1{table traMADol HCl 50 MG HCl 50 MG 6-05 t_as_ne HCl 50 MG 00:00: eded} 00 Kenalog Kenalog 3-0 No 1mL Common (Triamcinol (Triamcinol 6-05 S pirit one) one) 00:00: - [facility] Bupivicaine Bupivicaine 3-0 No 4mL Common [place] 6-05 Spirit 00:00: - [facility] Bupivicaine Bupivicaine 2023-0 No 4mL Common [place] 6-05 Spirit 00:00: - CHI 00 [facility] Kenalog Kenalog 3-0 No 1mL Common (Triamcinol (Triamcinol 6-05 S pirit one) one) 00:00: - CHI 00 [facility] traMADol traMADol 3-0 No 1{table traMADol HCl 50 MG HCl 50 MG 6-05 t_as_ne HCl 50 MG 00:00: eded} 00 Kenalog Kenalog 2022-0 No 1mL Common (Triamcinol (Triamcinol 6-05 S pirit one) one) 00:00: - CHI 00 [facility] Bupivicaine Bupivicaine 3-0 No 4mL Common [place] 6-05 Spirit 00:00: - CHI 00 [facility] Bupivicaine Bupivicaine 3-0 No 4mL Common [place] 6-05 Spirit 00:00: - CHI 00 [facility] Kenalog Kenalog 2022-0 No 1mL Common (Triamcinol (Triamcinol 6-05 S pirit one) one) 00:00: - CHI 00 [facility] traMADol traMADol 3-0 No 1{table traMADol HCl 50 MG HCl 50 MG 6-05 t_as_ne HCl 50 MG 00:00: eded} 00 Kenalog Kenalog 2022-0 No 1mL Common (Triamcinol (Triamcinol 6-05 S pirit one) one) 00:00: - CHI 00 [facility] Bupivicaine Bupivicaine 3-0 No 4mL Common [place] 6-05 Spirit 00:00: - CHI 00 [facility] Bupivicaine Bupivicaine 3-0 No 4mL Common [place] 6-05 Spirit 00:00: - CHI 00 [facility] Kenalog Kenalog 3-0 No 1mL Common (Triamcinol (Triamcinol 6-05 S pirit one) one) 00:00: - [facility]I 00 [facility] [facility] traMADol traMADol 3-0 No 1{table traMADol HCl 50 MG HCl 50 MG 6-05 t_as_ne HCl 50 MG 00:00: eded} 00 Kenalog Kenalog 2023-0 No 1mL [facility] (Triamcinol (Triamcinol 6-05 S pirit one) one) 00:00: - [facility] 00 [facility] Bupivicaine Bupivicaine 3-0 No 4mL [facility] [place] [facility]05 [facility] 00:00: - [facility] 00 [facility] Bupivicaine Bupivicaine 3-0 No 4mL [facility] [place] [facility]05 [facility] 00:00: - [facility] 00 [facility] Kenalog Kenalog 2022-0 No 1mL [facility] (Triamcinol (Triamcinol 6-05 S pirit one) one) 00:00: - [facility] 00 [facility] traMADol traMADol 2022-0 No 1{table traMADol HCl 50 MG HCl 50 MG 6-05 t_as_ne HCl 50 MG 00:00: eded} 00 Kenalog Kenalog 2022-0 No 1mL [facility] (Triamcinol (Triamcinol 6-05 S pirit one) one) 00:00: - [facility] 00 [facility] Bupivicaine Bupivicaine 2022-0 No 4mL [facility] [place] 6[facility] 00:00: - [facility] 00 [facility] Bupivicaine Bupivicaine 2022-0 No 4mL [facility] [place] 6[facility] 00:00: - [facility] 00 [facility] Kenalog Kenalog 2022-0 No 1mL [facility] (Triamcinol (Triamcinol 6-05 S pirit one) one) 00:00: - [facility] 00 [facility] traMADol traMADol 3-0 No 1{table traMADol HCl 50 MG HCl 50 MG 6-05 t_as_ne HCl 50 MG 00:00: eded} 00 Kenalog Kenalog 3-0 No 1mL [facility] (Triamcinol (Triamcinol 6-05 S pirit one) one) 00:00: - [facility] 00 [facility] Bupivicaine Bupivicaine 3-0 No 4mL [facility] [place] [facility] 00:00: - [facility] 00 [facility] Bupivicaine Bupivicaine 3-0 No 4mL Common [place] 6[facility] 00:00: - [facility] 00 [facility] Kenalog Kenalog 2022-0 No 1mL Common (Triamcinol (Triamcinol 6-05 S pirit one) one) 00:00: - [facility] 00 [facility] traMADol traMADol 3-0 No 1{table traMADol HCl 50 MG HCl 50 MG 6-05 t_as_ne HCl 50 MG 00:00: eded} 00 Kenalog Kenalog 3-0 No 1mL [facility] (Triamcinol (Triamcinol 6-05 S pirit one) one) 00:00: - [facility] 00 [facility] Bupivicaine Bupivicaine 3-0 No 4mL [facility] [place] [facility] 00:00: - [facility] 00 [facility] Bupivicaine Bupivicaine 3-0 No 4mL [facility] [place] [facility] 00:00: - [facility] 00 [facility] Kenalog Kenalog 2022-0 No 1mL [facility] (Triamcinol (Triamcinol 6-05 S pirit one) one) 00:00: - [facility] 00 [facility] traMADol traMADol 2022-0 No 1{table traMADol HCl 50 MG HCl 50 MG 6-05 t_as_ne HCl 50 MG 00:00: eded} 00 Eric Mulleralog 2022-0 No 1mL [facility] (Triamcinol (Triamcinol 6-05 S pirit one) one) 00:00: - [facility] 00 [facility] Bupivicaine Bupivicaine 3-0 No 4mL [facility] [place] 6[facility] 00:00: - [facility] 00 [facility] Bupivicaine Bupivicaine 3-0 No 4mL [facility] [place] 6[facility] 00:00: - [facility] 00 [facility] Kenalog Kenalog 3-0 No 1mL [facility] (Triamcinol (Triamcinol 6-05 S pirit one) one) 00:00: - [facility] 00 [facility] traMADol traMADol 3-0 No 1{table traMADol HCl 50 MG HCl 50 MG 6-05 t_as_ne HCl 50 MG 00:00: eded} 00 Kenalog Kenalog 3-0 No 1mL [facility] (Triamcinol (Triamcinol 6-05 S pirit one) one) 00:00: - [facility] 00 [facility] Bupivicaine Bupivicaine 2022-0 No 4mL [facility] [place] [facility] 00:00: - [facility] 00 [facility] Bupivicaine Bupivicaine 2022-0 No 4mL [facility] [place] -[facility] 00:00: - [facility] 00 [facility] Kenalog Kenalog 2022-0 No 1mL [facility] (Triamcinol (Triamcinol -05 S pirit one) one) 00:00: - [facility] 00 [facility] Pantoprazol Pantoprazol 2022-0 No 1{table QD Pantoprazo e Sodium 40 e Sodium 40 08-21 t} le Sodium MG MG 00:00: 40 MG 00 Vistaril 25 Vistaril 25 2022-0 No BID Vistaril MG MG - 25 MG 00:00: 00 Vistaril 25 Vistaril 25 2022-0 No BID Vistaril MG MG - 25 MG 00:00: 00 Pantoprazol Pantoprazol 3-0 No 1{table QD Pantoprazo e Sodium 40 e Sodium 40 08-21 t} le Sodium MG MG 00:00: 40 MG 00 Vistaril 25 Vistaril 25 2022-0 No BID Vistaril MG MG - 25 MG 00:00: 00 Pantoprazol Pantoprazol 3-0 No 1{table QD Pantoprazo e Sodium 40 e Sodium 40 6- t} le Sodium MG MG 00:00: 40 MG 00 Vistaril 25 Vistaril 25 2022-0 No BID Vistaril MG MG - 25 MG 00:00: 00 Pantoprazol Pantoprazol 2023-0 No 1{table QD Pantoprazo e Sodium 40 e Sodium 40 6- t} le Sodium MG MG 00:00: 40 MG 00 Vistaril 25 Vistaril 25 2022-0 No BID Vistaril MG MG - 25 MG 00:00: 00 Pantoprazol Pantoprazol 3-0 No 1{table QD Pantoprazo e Sodium 40 e Sodium 40 6-01 t} le Sodium MG MG 00:00: 40 MG 00 Pseudoeph-B Pseudoeph-B 2023-0 No 5{ml_as QID Pseudoeph- romphen-DM romphen-DM 5-25 _needed Bromphen-D 30- 00:00: } M 30-2-10 MG/5ML MG/5ML 00 MG/5ML Pseudoeph-B Pseudoeph-B 2022-0 No 5{ml_as QID Pseudoeph- romphen-DM romphen-DM 5-25 _needed Bromphen-D 00:00: } M 30-2-10 MG/5ML MG/5ML 00 MG/5ML ergocalcife 2022- No Vitamin D 72732M Take 1 [facility] rol 08-04 deficiency, capsule ity of (Vitamin 00:00: 04:59 not (50,000 [place] D2) 50,000 00 :00 otherwise Units) by MD units specified mouth Anderso capsule every 7 n days for 8 Cancer doses. 1 Center cap weekly for 8 weeks, then take Vit D3 5000 IU (OTC) once daily ergocalcife 2022- No Vitamin D [id number] Take 1 [facility] rol 08-04 deficiency, capsule ity of (Vitamin 00:00: 04:59 not (50,000 [place] D2) 50,000 00 :00 otherwise Units) by MD units specified mouth Anderso capsule every 7 n days for 8 Cancer doses. 1 Center cap weekly for 8 weeks, then take Vit D3 5000 IU (OTC) once daily Pregabalin Pregabalin 2022-0 No 1{capsu BID Pregabalin 75 MG 75 MG 5-10 le} 75 MG 00:00: 00 Ambien 10 Ambien 10 2022-0 No QD Ambien 10 MG MG 5-10 MG 00:00: 00 Pregabalin Pregabalin 2022-0 No Pregabalin 225 MG 225 MG 4-05 225 MG 00:00: 00 Pregabalin Pregabalin 2022-0 No 1{capsu BID Pregabalin 225 MG 225 MG 2-06 le} 225 MG 00:00: 00 Pregabalin Pregabalin 2022-0 No 1{capsu BID Pregabalin 225 MG 225 MG 2-06 le} 225 MG 00:00: 00 Pregabalin Pregabalin 2023-0 No 1{capsu BID Pregabalin 225 MG 225 MG 2 le} 225 MG 00:00: 00 Ambien 10 Ambien 10 No QD Ambien 10 MG MG 2-01 MG 00:00: 00 Pregabalin Pregabalin No 1{capsu BID Pregabalin 75 MG 75 MG 2- le} 75 MG 00:00: 00 Ambien 10 Ambien 10 No QD Ambien 10 MG MG 2-01 MG 00:00: 00 Ambien 10 Ambien 10 No QD Ambien 10 MG MG 2-01 MG 00:00: 00 Ambien 10 Ambien 10 No QD Ambien 10 MG MG 2-01 MG 00:00: 00 letrozole Yes Infiltratin 2.5mg Take 1 [facility] (FEMARA) 1-20 g duct tablet ity of 2.5 mg 00:00: carcinoma, (2.5 mg) [place] tablet 00 NOS of by mouth MD upper-outer daily. [place] o quadrant of n breast Cancer <Female; Center Left> letrozole Yes Infiltratin 2.5mg Take 1 [facility] (FEMARA) 1-20 g duct tablet ity of 2.5 mg 00:00: carcinoma, (2.5 mg) [place] tablet 00 NOS of by mouth MD upper-outer daily. [place] o quadrant of n breast Cancer <Female; Center Left> pantoprazol 2021-03 No [address] [facility] (PROTONIX) 10:54: 00:00 Medica l 40 MG 10 :00 Center tablet pantoprazol 2021-03 No [address] [facility] (PROTONIX) 10:54: 00:00 Medica l 40 MG 10 :00 Center tablet pantoprazol 2021-03 No 40mg QD Take [address] [facility] (40 [facility] (Protonix) 00:00: 00:00 mg total) M edical 40 MG 00 :00 by mouth Center tablet daily. ondansetron 2021-03 No 4mg Take [address] [facility] (ZOFRAN-ODT 2-28 09-19 tablet (4 Nadja kes ) 4 MG 00:00: 00:00 mg total) Medic al disintegrat 00 :00 by mouth Cent er ing tablet every 8 (eight) hours as needed for Nausea for up to 7 days. pantoprazol 2021-03 No 40mg QD Take [address] [facility] (40 [facility] (Protonix) 00:00: 00:00 mg total) M edical 40 MG 00 :00 by mouth Center tablet daily. ondansetron 2021-03 No 4mg Take [address] [facility] (ZOFRAN-ODT 05-20 tablet (4 Nadja kes ) 4 MG 00:00: 00:00 mg total) Medic al disintegrat 00 :00 by mouth Cent er ing tablet every 8 (eight) hours as needed for Nausea for up to 7 days. traMADoL 2021-03- No 50mg Take [address] [facility] (ULTRAM) 50 05-20 tablet (50 L ukes mg tablet 00:00: 23:59 mg total) Me dical 00 :00 by mouth Center every 6 (six) hours as needed for Pain for up to 10 days. Max Daily Amount: 200 mg traMADoL 2021-03 No 50mg Take [address] [facility] (ULTRAM) 50 05-20 tablet (50 L u[facility] mg tablet 00:00: 23:59 mg total) Me dical 00 :00 by mouth Center every 6 (six) hours as needed for Pain for up to 10 days. Max Daily Amount: 200 mg Synvisc Synvisc 2021-03 No 16mg [facility] 2-20 Spirit 00:00: - [facility] Bupivicaine Bupivicaine 2021-03 No 2.5mg [facility] [place] 2[facility]20 [facility] 00:00: - [facility] Synvisc Synvisc 2021-03 No 16mg [facility] 2-20 Spirit 00:00: - [facility] Bupivicaine Bupivicaine 2021-03 No 2.5mg Common [place] 2[facility]20 [facility] 00:00: - [facility] 00 [facility] Synvisc Synvisc 2021-03 No 16mg Common 2-20 Spirit 00:00: - [facility] Bupivicaine Bupivicaine 2021-03 No 2.5mg Common [place] 2[facility]20 [facility] 00:00: - [facility] 00 [facility] Synvisc Synvisc 2021-03 No 16mg Common 2-20 Spirit 00:00: - [facility] 00 [facility] Bupivicaine Bupivicaine 2021-03 No 2.5mg Common [place] 2-20 [facility] 00:00: - [facility] 00 [facility] Synvisc Synvisc 2021-03 No 16mg Common 2-20 Spirit 00:00: - [facility] 00 [facility] Bupivicaine Bupivicaine 2021-03 No 2.5mg Common [place] 2-20 [facility] 00:00: - [facility] 00 [facility] Synvisc Synvisc 2021-03 No 16mg Common 2-20 Spirit 00:00: - [facility] 00 [facility] Bupivicaine Bupivicaine 2021-03 No 2.5mg Common [place] 2-20 [facility] 00:00: - [facility] 00 [facility] Synvisc Synvisc 2021-03 No 16mg Common 2-20 Spirit 00:00: - [facility] 00 [facility] Bupivicaine Bupivicaine 2021-03 No 2.5mg Common [place] 2-20 Spirit 00:00: - [facility] 00 [facility] Synvisc Synvisc 2021-03 No 16mg Common 2-20 Spirit 00:00: - [facility] 00 [facility] Bupivicaine Bupivicaine 2021-03 No 2.5mg Common [place] 2-20 [facility] 00:00: - [facility] 00 [facility] Synvisc Synvisc 2021-03 No 16mg Common 2-20 Spirit 00:00: - [facility] 00 [facility] Bupivicaine Bupivicaine 2021-03 No 2.5mg Common [place] 2-20 Spirit 00:00: - [facility] 00 [facility] Synvisc Synvisc 2021-03 No 16mg Common 2-20 Spirit 00:00: - [facility] 00 [facility] Bupivicaine Bupivicaine 2021-03 No 2.5mg Common [place] 2-20 [facility] 00:00: - [facility] 00 [facility] Synvisc Synvisc 2021-03 No 16mg Common 2-20 Spirit 00:00: - [facility] 00 [facility] Bupivicaine Bupivicaine 2021-03 No 2.5mg Common [place] 2-20 [facility] 00:00: - [facility] 00 [facility] Synvisc Synvisc 2021-03 No 16mg Common 2-20 Spirit 00:00: - [facility] 00 [facility] Bupivicaine Bupivicaine 2021-03 No 2.5mg Common [place] 2-20 [facility] 00:00: - [facility] 00 [facility] Synvisc Synvisc 2021-03 No 16mg Common 2-20 Spirit 00:00: - [facility] 00 [facility] Bupivicaine Bupivicaine 2021-03 No 2.5mg Common [place] 2-20 [facility] 00:00: - [facility] 00 [facility] Synvisc Synvisc 2021-03 No 16mg Common 2-20 Spirit 00:00: - [facility] 00 [facility] Bupivicaine Bupivicaine 2021-03 No 2.5mg Common [place] 2-20 [facility] 00:00: - [facility] 00 [facility] Synvisc Synvisc 2021-03 No 16mg Common 2-20 Spirit 00:00: - [facility] 00 [facility] Bupivicaine Bupivicaine 2021-03 No 2.5mg Common [place] 2-20 [facility] 00:00: - [facility] 00 [facility] Synvisc Synvisc 2021-03 No 16mg Common 2-20 Spirit 00:00: - [facility] 00 [facility] Bupivicaine Bupivicaine 2021-03 No 2.5mg Common [place] 2-20 [facility] 00:00: - [facility] 00 [facility] Synvisc Synvisc 2021-03 No 16mg Common 2-20 Spirit 00:00: - [facility] 00 [facility] Bupivicaine Bupivicaine 2021-03 No 2.5mg Common [place] 2-20 [facility] 00:00: - [facility] 00 [facility] Synvisc Synvisc 2021-03 No 16mg Common 2-20 Spirit 00:00: - [facility] 00 [facility] Bupivicaine Bupivicaine 2022-1 No 2.5mg Common [place] 2-20 [facility] 00:00: - [facility] 00 [facility] Synvis Synvisc 2021-03 No 16mg Common 2-20 Spirit 00:00: - [facility] 00 [facility] Bupivicaine Bupivicaine 2021-03 No 2.5mg Common [place] 2-20 [facility] 00:00: - [facility] 00 [facility] Synvisc Synvisc 2021-03 No 16mg Common 2-20 Spirit 00:00: - [facility] 00 [facility] Bupivicaine Bupivicaine 2021-03 No 2.5mg Common [place] 2-20 [facility] 00:00: - [facility] 00 [facility] traMADol traMADol 2021-03 No 1{table traMADol HCl 50 MG HCl 50 MG 2-13 t_as_ne HCl 50 MG 00:00: eded} 00 Synvis Synvisc 2021-03 No 16mg [facility] 2-13 Spirit 00:00: - [facility] Bupivicaine Bupivicaine 2021-03 No 2.5mg Common [place] 2-13 [facility] 00:00: - [facility] Kenalog Kenalog 2021-03 No 40mg Common (Triamcinol (Triamcinol 2-13 S pirit one) one) 00:00: - [facility] 00 [facility] traMADol traMADol 2021-03 No 1{table traMADol HCl 50 MG HCl 50 MG 2-13 t_as_ne HCl 50 MG 00:00: eded} 00 Synvis Synvisc 2021-03 No 16mg [facility] 2-13 Spirit 00:00: - [facility] 00 [facility] Bupivicaine Bupivicaine 2021-03 No 2.5mg Common [place] 2-13 [facility] 00:00: - [facility] 00 [facility] Kenalog Kenalog 2021-03 No 40mg Common (Triamcinol (Triamcinol 2-13 S pirit one) one) 00:00: - [facility] 00 [facility] traMADol traMADol 2021-03 No 1{table traMADol HCl 50 MG HCl 50 MG 2-13 t_as_ne HCl 50 MG 00:00: eded} 00 Synvisc Synvisc 2021-03 No 16mg [facility] 2-13 Spirit 00:00: - [facility] 00 [facility] Bupivicaine Bupivicaine 2021-03 No 2.5mg Common [place] 2[facility]13 [facility] 00:00: - [facility] 00 [facility] Kenalog Kenalog 2021-03 No 40mg Common (Triamcinol (Triamcinol 2-13 S pirit one) one) 00:00: - [facility] 00 [facility] traMADol traMADol 2021-03 No 1{table traMADol HCl 50 MG HCl 50 MG 2-13 t_as_ne HCl 50 MG 00:00: eded} 00 Synvis Synvis 2021-03 No 16mg [facility] 2-13 Spirit 00:00: - [facility] 00 [facility] Bupivicaine Bupivicaine 2021-03 No 2.5mg Common [place] 2[facility]13 [facility] 00:00: - [facility] 00 [facility] Kenbrenden Kenalog 2021-03 No 40mg Common (Triamcinol (Triamcinol 2-13 S pirit one) one) 00:00: - [facility] 00 [facility] traMADol traMADol 2021-03 No 1{table traMADol HCl 50 MG HCl 50 MG 2-13 t_as_ne HCl 50 MG 00:00: eded} 00 Synvis Synvisc 2021-03 No 16mg [facility] 2-13 Spirit 00:00: - [facility] 00 [facility] Bupivicaine Bupivicaine 2021-03 No 2.5mg Common [place] 2[facility]13 [facility] 00:00: - [facility] 00 [facility] Kenalog Kenalog 2021-03 No 40mg Common (Triamcinol (Triamcinol 2-13 S pirit one) one) 00:00: - [facility] 00 [facility] traMADol traMADol 2021-03 No 1{table traMADol HCl 50 MG HCl 50 MG 2-13 t_as_ne HCl 50 MG 00:00: eded} 00 Synvisc Synvisc 2021-03 No 16mg [facility] 2-13 Spirit 00:00: - [facility] 00 [facility] Bupivicaine Bupivicaine 2021-03 No 2.5mg Common [place] 2[facility]13 [facility] 00:00: - [facility] 00 [facility] Kenalog Kenalog 2021-03 No 40mg Common (Triamcinol (Triamcinol 2-13 S pirit one) one) 00:00: - [facility] 00 [facility] traMADol traMADol 2021-03 No 1{table traMADol HCl 50 MG HCl 50 MG 2-13 t_as_ne HCl 50 MG 00:00: eded} 00 Synvisc Synvisc 2021-03 No 16mg [facility] 2-13 Spirit 00:00: - [facility] 00 [facility] Bupivicaine Bupivicaine 2021-03 No 2.5mg Common [place] 2-13 [facility] 00:00: - [facility] 00 [facility] Kenalog Kenalog 2021-03 No 40mg [facility] (Triamcinol (Triamcinol 2-13 S pirit one) one) 00:00: - [facility] 00 [facility] traMADol traMADol 2021-03 No 1{table traMADol HCl 50 MG HCl 50 MG 2-13 t_as_ne HCl 50 MG 00:00: eded} 00 Synvis Synvisc 2021-03 No 16mg [facility] 2-13 Spirit 00:00: - [facility] 00 [facility] Bupivicaine Bupivicaine 2021-03 No 2.5mg Common [place] 2-13 [facility] 00:00: - [facility] 00 [facility] Kenalog Kenalog 2021-03 No 40mg Common (Triamcinol (Triamcinol 2-13 S pirit one) one) 00:00: - [facility] 00 [facility] Synvisc Synvisc 2021-03 No 16mg Common 2-13 Spirit 00:00: - [facility] 00 [facility] Bupivicaine Bupivicaine 2021-03 No 2.5mg Common [place] 2-13 [facility] 00:00: - [facility] 00 [facility] Kenalog Kenalog 2021-03 No 40mg Common (Triamcinol (Triamcinol 2-13 S pirit one) one) 00:00: - [facility] 00 [facility] Synvisc Synvisc 2021-03 No 16mg Common 2-13 Spirit 00:00: - [facility] 00 [facility] Bupivicaine Bupivicaine 2021-03 No 2.5mg Common [place] 2-13 [facility] 00:00: - [facility] 00 [facility] Kenalog Kenalog 2021-03 No 40mg Common (Triamcinol (Triamcinol 2-13 S pirit one) one) 00:00: - [facility] 00 [facility] Synvisc Synvisc 2021-03 No 16mg Common 2-13 Spirit 00:00: - [facility] 00 [facility] Bupivicaine Bupivicaine 2021-03 No 2.5mg Common [place] 2-13 [facility] 00:00: - [facility] 00 [facility] Kenalog Kenalog 2021-03 No 40mg Common (Triamcinol (Triamcinol 2-13 S pirit one) one) 00:00: - [facility] 00 [facility] Synvis Synvisc 2021-03 No 16mg Common 2-13 Spirit 00:00: - [facility] 00 [facility] Bupivicaine Bupivicaine 2021-03 No 2.5mg Common [place] 2-13 [facility] 00:00: - [facility] 00 [facility] Kenalog Kenalog 2021-03 No 40mg Common (Triamcinol (Triamcinol 2-13 S pirit one) one) 00:00: - [facility] 00 [facility] Synvis Synvisc 2021-03 No 16mg Common 2-13 Spirit 00:00: - [facility] 00 [facility] Bupivicaine Bupivicaine 2021-03 No 2.5mg Common [place] 2-13 [facility] 00:00: - [facility] 00 [facility] Kenalog Kenalog 2021-03 No 40mg Common (Triamcinol (Triamcinol 2-13 S pirit one) one) 00:00: - [facility] 00 [facility] Synvis Synvisc 2021-03 No 16mg [facility] 2-13 Spirit 00:00: - [facility] 00 [facility] Bupivicaine Bupivicaine 2021-03 No 2.5mg Common [place] 2[facility]13 [facility] 00:00: - [facility] 00 [facility] [place] Kenalog 2021-03 No 40mg Common (Triamcinol (Triamcinol 2-13 S pirit one) one) 00:00: - [facility] 00 [facility] Synvisc Synvisc 2021-03 No 16mg Common 2-13 Spirit 00:00: - [facility] 00 [facility] Bupivicaine Bupivicaine 2021-03 No 2.5mg Common [place] 2-13 [facility] 00:00: - [facility] 00 [facility] Kenalog Kenalog 2021-03 No 40mg Common (Triamcinol (Triamcinol 2-13 S pirit one) one) 00:00: - [facility] 00 [facility] Synvisc Synvisc 2021-03 No 16mg Common 2-13 Spirit 00:00: - [facility] 00 [facility] Bupivicaine Bupivicaine 2021-03 No 2.5mg Common [place] 2-13 [facility] 00:00: - [facility] 00 [facility] Kenalog Kenalog 2021-03 No 40mg Common (Triamcinol (Triamcinol 2-13 S pirit one) one) 00:00: - [facility] 00 [facility] Synvisc Synvisc 2021-03 No 16mg Common 2-13 Spirit 00:00: - [facility] 00 [facility] Bupivicaine Bupivicaine 2021-03 No 2.5mg Common [place] 2-13 [facility] 00:00: - [facility] 00 [facility] Kenalog Kenalog 2021-03 No 40mg Common (Triamcinol (Triamcinol 2-13 S pirit one) one) 00:00: - [facility] 00 [facility] Synvisc Synvisc 2021-03 No 16mg Common 2-13 Spirit 00:00: - [facility] 00 [facility] Bupivicaine Bupivicaine 2021-03 No 2.5mg Common [place] 2-13 [facility] 00:00: - [facility] 00 [facility] Kenalog Kenalog 2021-03 No 40mg Common (Triamcinol (Triamcinol 2-13 S pirit one) one) 00:00: - [facility] 00 [facility] Synvisc Synvisc 2021-03 No 16mg Common 2-13 Spirit 00:00: - [facility] 00 [facility] Bupivicaine Bupivicaine 2021-03 No 2.5mg Common [place] 2-13 [facility] 00:00: - [facility] 00 [facility] Kenalog Kenalog 2021-03 No 40mg Common (Triamcinol (Triamcinol 2-13 S pirit one) one) 00:00: - [facility] 00 [facility] Synvisc Synvisc 2021-03 No 16mg Common 2-13 Spirit 00:00: - [facility] 00 [facility] Bupivicaine Bupivicaine 2021-03 No 2.5mg Common [place] 2-13 [facility] 00:00: - [facility] 00 [facility] Kenalog Kenalog 2021-03 No 40mg Common (Triamcinol (Triamcinol 2-13 S pirit one) one) 00:00: - [facility] 00 [facility] Synvis Synvisc 2021-03 No 16mg Common 2-13 [facility] 00:00: - [facility] 00 [facility] Bupivicaine Bupivicaine 2021-03 No 2.5mg [facility] [place] 2[facility]13 [facility] 00:00: - [facility] 00 [facility] [place] Mulleralog 2021-03 No 40mg Common (Triamcinol (Triamcinol 2-13 S pirit one) one) 00:00: - [facility] 00 [facility] Ambien 10 Ambien 10 2021-03 No QD [...] MG 11 Center tablet pregabalin 2021-03 Yes [id number] 225mg Take 3 [facility] (LYRICA) 75 1-04 capsules ity of mg capsule 00:00: by mouth Benjamin as 00 in the Medical morning Branch and 3 capsules in the evening. pregabalin 2021-03 Yes [id number] 225mg Take 3 [facility] (LYRICA) 75 1-04 capsules ity of mg capsule 00:00: by mouth Benjamin as 00 in the Medical morning Branch and 3 capsules in the evening. pregabalin 2021-03 Yes [id number] 225mg Take 3 [facility] (LYRICA) 75 1-04 capsules ity of mg capsule 00:00: by mouth Benjamin as 00 in the Medical morning Branch and 3 capsules in the evening. pregabalin 2021-03 Yes [id number] 225mg Take 3 [facility] (LYRICA) 75 1-04 capsules ity of mg capsule 00:00: by mouth Benjamin as 00 in the Medical morning Branch and 3 capsules in the evening. pregabalin 2021-03 Yes [id number] 225mg Take 3 [facility] (LYRICA) 75 1-04 capsules ity of mg capsule 00:00: by mouth Benjamin as 00 in the Medical morning Branch and 3 capsules in the evening. pregabalin 2021-03 Yes [id number] 225mg Take 3 [facility] (LYRICA) 75 1-04 capsules ity of mg capsule 00:00: by mouth Benjamin as 00 in the Medical morning Branch and 3 capsules in the evening. pregabalin 2021-03 Yes [id number] 225mg Take 3 [facility] (LYRICA) 75 1-04 capsules ity of mg capsule 00:00: by mouth Benjamin as 00 in the Medical morning Branch and 3 capsules in the evening. pregabalin 2021-03 Yes [id number] 225mg Take 3 [facility] (LYRICA) 75 1-04 capsules ity of mg capsule 00:00: by mouth Benjamin as 00 in the Medical morning Branch and 3 capsules in the evening. pregabalin 2021-03 Yes [id number] 225mg Take 3 [facility] (LYRICA) 75 1-04 capsules ity of mg capsule 00:00: by mouth Benjamin as 00 in the Medical morning Branch and 3 capsules in the evening. pregabalin 2021-03 Yes [id number] 225mg Take 3 [facility] (LYRICA) 75 1-04 capsules ity of mg capsule 00:00: by mouth Benjamin as 00 in the Medical morning Branch and 3 capsules in the evening. pregabalin 2021-03 Yes [id number] 225mg Take 3 [facility] (LYRICA) 75 1-04 capsules ity of mg capsule 00:00: by mouth Benjamin as 00 in the Medical morning Branch and 3 capsules in the evening. pregabalin 2021-03 Yes [id number] 225mg Take 3 [facility] (LYRICA) 75 1-04 capsules ity of mg capsule 00:00: by mouth Benjamin as 00 in the Medical morning Branch and 3 capsules in the evening. pregabalin 2021-03 Yes [id number] 225mg Take 3 [facility] (LYRICA) 75 1-04 capsules ity of mg capsule 00:00: by mouth Benjamin as 00 in the Medical morning Branch and 3 capsules in the evening. pregabalin 2021-03 Yes [id number] 225mg Take 3 [facility] (LYRICA) 75 1-04 capsules ity of mg capsule 00:00: by mouth Benjamin as 00 in the Medical morning Branch and 3 capsules in the evening. pregabalin 2021-03 Yes [id number] 225mg Take 3 [facility] (LYRICA) 75 1-04 capsules ity of mg capsule 00:00: by mouth [facility] as 00 in the Medical morning Branch and 3 capsules in the evening. pregabalin 2021-03 Yes [id number] 225mg Take 3 [facility] ([facility]) 75 1-04 capsules ity of mg capsule 00:00: by mouth [facility] as 00 in the Medical morning Branch and 3 capsules in the evening. pregabalin 2021-03 Yes [id number] 225mg Take 3 [facility] ([facility]) 75 1-04 capsules ity of mg capsule 00:00: by mouth [facility] as 00 in the Medical morning Branch and 3 capsules in the evening. pregabalin 2021-03 Yes [id number] 225mg Take 3 [facility] ([facility]) 75 1-04 capsules ity of mg capsule 00:00: by mouth [facility] as 00 in the Medical morning Branch and 3 capsules in the evening. pregabalin 2021-03 Yes [id number] 225mg Take 3 [facility] ([facility] 75 1-04 capsules ity of mg capsule 00:00: by mouth [place] 00 in the Medical morning Branch and 3 capsules in the evening. pregabalin 2021-03 Yes [id number] 225mg Take 3 [facility] ([facility]) 75 1-04 capsules ity of mg capsule 00:00: by mouth [place] 00 in the Medical morning Branch and 3 capsules in the evening. pregabalin 2021-03 Yes [id number] 225mg Take 3 [facility] ([facility]) 75 1-04 capsules ity of mg capsule 00:00: by mouth [place] 00 in the Medical morning Branch and 3 capsules in the evening. pregabalin 2021-03 Yes [id number] 225mg Take 3 [facility] ([facility]) 75 1-04 capsules ity of mg capsule 00:00: by mouth [place] 00 in the Medical morning Branch and 3 capsules in the evening. pregabalin 2021-03 Yes [id number] 225mg Take 3 [facility] ([facility]) 75 1-04 capsules ity of mg capsule 00:00: by mouth [place] 00 in the Medical morning Branch and 3 capsules in the evening. pregabalin 2021-03 Yes [id number] 225mg Take 3 [facility] ([facility]) 75 1-04 capsules ity of mg capsule 00:00: by mouth [place] 00 in the Medical morning Branch and 3 capsules in the evening. pregabalin 2021-03- No [id number] 225mg Take 3 [facility] ([facility]) 75 1-04 11-09 capsules ity of mg capsule 00:00: 00:00 by mouth [place] 00 :00 in the Medical morning Branch and 3 capsules in the evening. pregabalin 2021-03- No [id number] 225mg Take 3 [facility] ([facility]) 75 1-04 11-09 capsules ity of mg capsule 00:00: 00:00 by mouth [place] 00 :00 in the Medical morning Branch [facility]syrin Q7D Inject [address] 2.5 mg/0.5 0-06 ge} Syringe [facility]:00: subcutaneo Medi ami 00 usly once Center a week. Darshanunjaro 2021-03- No 1{syrin Q7D Inject [address] 2.5 mg/0.5 0-06 12-28 ge} Syringe [facility] 00:00: 00:00 subcutaneo Med ical 00 :00 usly once Center a week. Mounjaro 2021-03- No 1{syrin Q7D Inject [address] 2.5 mg/0.5 0-06 12-28 ge} Syringe [facility] 00:00: 00:00 subcutaneo Med ical 00 :00 usly once Center a week. lisinopriL- 2021-03 Yes 1 tablet [facility] [place] hydrochloro 0-05 ity of thiazide 11:10: [place] 10-12.5 mg 33 Medical per tablet Branch linaCLOtide 2021-03 Yes [facility] (LINZESS) 0-05 ity of 290 mcg Cap 11:10: [address] pantoprazol 2021-03 Yes 1 tablet [facility] [place] e 40 mg EC 0-05 ity of tablet 11:10: [address] lisinopriL- 2021-03 Yes 1 tablet [facility] [place] hydrochloro 0-05 ity of thiazide 11:10: [place] 10-12.5 mg 33 Medical per tablet Branch linaCLOtide 2021-03 Yes Un[facility] (LINZESS) 0-05 ity of 290 mcg Cap 11:10: [address] pantoprazol 2021-03 Yes 1 tablet [facility] [place] [facility] 40 mg EC 0-05 ity of tablet 11:10: [address] lisinopriL- 2021-03 Yes 1 tablet [facility] [place] hydrochloro 0-05 ity of thiazide 11:10: [place] 10-12.5 mg 33 Medical per tablet Branch linaCLOtide 2021-03 Yes Un[facility] (LINZESS) 0-05 ity of 290 mcg Cap 11:10: [address] pantoprazol 2021-03 Yes 1 tablet [facility] [place] [facility] 40 mg EC 0-05 ity of tablet 11:10: [address] lisinopriL- 2021-03 Yes 1 tablet [facility] [place] hydrochloro 0-05 ity of thiazide 11:10: [place] 10-12.5 mg 33 Medical per tablet Branch linaCLOtide 2021-03 Yes Univer s (LINZESS) 0-05 ity of 290 mcg Cap 11:10: [address] pantoprazol 2021-03 Yes 1 tablet [facility] [place] e 40 mg EC 0-05 ity of tablet 11:10: [address] lisinopriL- 2021-03 Yes 1 tablet [facility] [place] hydrochloro 0-05 ity of thiazide 11:10: [place] 10-12.5 mg 33 Medical per tablet Branch linaCLOtide 2021-03 Yes Univer s (LINZESS) 0-05 ity of 290 mcg Cap 11:10: [address] pantoprazol 2021-03 Yes 1 tablet [facility] [place] [facility] 40 mg EC 0-05 ity of tablet 11:10: [address] lisinopriL- 2021-03 Yes 1 tablet [facility] [place] hydrochloro 0-05 ity of thiazide 11:10: [place] 10-12.5 mg 33 Medical per tablet Branch linaCLOtide 2021-03 Yes Univer s (LINZESS) 0-05 ity of 290 mcg Cap 11:10: [address] pantoprazol 2021-03 Yes 1 tablet [facility] [place] [facility] 40 mg EC 0-05 ity of tablet 11:10: [address] lisinopriL- 2021-03 Yes 1 tablet [facility] [place] hydrochloro 0-05 ity of thiazide 11:10: [place] 10-12.5 mg 33 Medical per tablet Branch linaCLOtide 2021-03 Yes Univer s (LINZESS) 0-05 ity of 290 mcg Cap 11:10: [address] pantoprazol 2021-03 Yes 1 tablet [facility] [place] [facility] 40 mg EC 0-05 ity of tablet 11:10: [address] lisinopriL- 2021-03 Yes 1 tablet [facility] [place] hydrochloro 0-05 ity of thiazide 11:10: [place] 10-12.5 mg 33 Medical per tablet Branch linaCLOtide 2021-03 Yes Univer s (LINZESS) 0-05 ity of 290 mcg Cap 11:10: [address] pantoprazol 2021-03 Yes 1 tablet [facility] [place] [facility] 40 mg EC 0-05 ity of tablet 11:10: [address] lisinopriL- 2021-03 Yes 1 tablet [facility] [place] hydrochloro 0-05 ity of thiazide 11:10: [place] 10-12.5 mg 33 Medical per tablet Branch linaCLOtide 2021-03 Yes Univer s (LINZESS) 0-05 ity of 290 mcg Cap 11:10: [address] pantoprazol 2021-03 Yes 1 tablet [facility] [place] [facility] 40 mg EC 0-05 ity of tablet 11:10: [address] lisinopriL- 2021-03 Yes 1 tablet [facility] [place] hydrochloro 0-05 ity of thiazide 11:10: [place] 10-12.5 mg 33 Medical per tablet [place] linaCLOtide 2021-03 Yes Univer s (LINZESS) 0-05 ity of 290 mcg Cap 11:10: [address] pantoprazol 2021-03 Yes 1 tablet [facility] [place] [facility] 40 mg EC 0-05 ity of tablet 11:10: [address] lisinopriL- 2021-03 Yes 1 tablet [facility] [place] hydrochloro 0-05 ity of thiazide 11:10: [place] 10-12.5 mg 33 Medical per tablet [place] linaCLOtide 2021-03 Yes Univer s (LINZESS) 0-05 ity of 290 mcg Cap 11:10: [address] pantoprazol 2021-03 Yes 1 tablet [facility] [place] [facility] 40 mg EC 0-05 ity of tablet 11:10: [address] lisinopriL- 2021-03 Yes 1 tablet [facility] [place] hydrochloro 0-05 ity of thiazide 11:10: [place] 10-12.5 mg 33 Medical per tablet Branch linaCLOtide 2021-03 Yes Univer s (LINZESS) 0-05 ity of 290 mcg Cap 11:10: [address] pantoprazol 2021-03 Yes 1 tablet [facility] [place] [facility] 40 mg EC 0-05 ity of tablet 11:10: [address] lisinopriL- 2021-03 Yes 1 tablet [facility] [place] hydrochloro 0-05 ity of thiazide 11:10: [place] 10-12.5 mg 33 Medical per tablet Branch linaCLOtide 2021-03 Yes Univer s (LINZESS) 0-05 ity of 290 mcg Cap 11:10: [place] [id number] Medical [place] pantoprazol 2021-03 Yes 1 tablet [facility] e 40 mg EC 0-05 ity of tablet 11:10: [address] lisinopriL- 2021-03 Yes 1 tablet [facility] [place] hydrochloro 0-05 ity of thiazide 11:10: [place] 10-12.5 mg 33 Medical per tablet Branch linaCLOtide 2021-03 Yes Univer s (LINZESS) 0-05 ity of 290 mcg Cap 11:10: [address] pantoprazol 2021-03 Yes 1 tablet [facility] [place] [facility] 40 mg EC 0-05 ity of tablet 11:10: [address] lisinopriL- 2021-03 Yes 1 tablet [facility] [place] hydrochloro 0-05 ity of thiazide 11:10: [place] 10-12.5 mg 33 Medical per tablet Branch linaCLOtide 2021-03 Yes Un[facility] (LINZESS) 0-05 ity of 290 mcg Cap 11:10: [address] pantoprazol 2021-03 Yes 1 tablet [facility] [place] [facility] 40 mg EC 0-05 ity of tablet 11:10: [address] lisinopriL- 2021-03 Yes 1 tablet [facility] [place] hydrochloro 0-05 ity of thiazide 11:10: [place] 10-12.5 mg 33 Medical per tablet Branch linaCLOtide 2021-03 Yes [facility] (LINZESS) 0-05 ity of 290 mcg Cap 11:10: [address] pantoprazol 2021-03 Yes 1 tablet [facility] [place] [facility] 40 mg EC 0-05 ity of tablet 11:10: [address] lisinopriL- 2021-03 Yes 1 tablet [facility] [place] hydrochloro 0-05 ity of thiazide 11:10: [place] 10-12.5 mg 33 Medical per tablet Branch linaCLOtide 2021-03 Yes Un[facility] (LINZESS) 0-05 ity of 290 mcg Cap 11:10: [address] pantoprazol 2021-03 Yes 1 tablet [facility] [place] [facility] 40 mg EC 0-05 ity of tablet 11:10: [address] lisinopriL- 2021-03 Yes 1 tablet [facility] [place] hydrochloro 0-05 ity of thiazide 11:10: [place] 10-12.5 mg 33 Medical per tablet Branch linaCLOtide 2021-03 Yes [facility] (LINZESS) 0-05 ity of 290 mcg Cap 11:10: [address] pantoprazol 2021-03 Yes 1 tablet [facility] [place] [facility] 40 mg EC 0-05 ity of tablet 11:10: [address] lisinopriL- 2021-03 Yes 1 tablet [facility] [place] hydrochloro 0-05 ity of thiazide 11:10: [place] 10-12.5 mg 33 Medical per tablet Branch linaCLOtide 2021-03 Yes Univer s (LINZESS) 0-05 ity of 290 mcg Cap 11:10: [address] pantoprazol 2021-03 Yes 1 tablet [facility] [place] [facility] 40 mg EC 0-05 ity of tablet 11:10: [address] lisinopriL- 2021-03 Yes 1 tablet [facility] [place] hydrochloro 0-05 ity of thiazide 11:10: [place] 10-12.5 mg 33 Medical per tablet Branch linaCLOtide 2021-03 Yes Univer s (LINZESS) 0-05 ity of 290 mcg Cap 11:10: [address] pantoprazol 2021-03 Yes 1 tablet [facility] [place] [facility] 40 mg EC 0-05 ity of tablet 11:10: [address] lisinopriL- 2021-03 Yes 1 tablet [facility] [place] hydrochloro 0-05 ity of thiazide 11:10: [place] 10-12.5 mg 33 Medical per tablet Branch linaCLOtide 2021-03 Yes Un[facility] s (LINZESS) 0-05 ity of 290 mcg Cap 11:10: [address] pantoprazol 2021-03 Yes 1 tablet [facility] [place] [facility] 40 mg EC 0-05 ity of tablet 11:10: [address] lisinopriL- 2021-03 Yes 1 tablet [facility] [place] hydrochloro 0-05 ity of thiazide 11:10: [place] 10-12.5 mg 33 Medical per tablet Branch linaCLOtide 2021-03 Yes Un[facility] (LINZESS) 0-05 ity of 290 mcg Cap 11:10: [address] pantoprazol 2021-03 Yes 1 tablet [facility] [place] [facility] 40 mg EC 0-05 ity of tablet 11:10: [address] lisinopriL- 2021-03 Yes 1 tablet [facility] [place] hydrochloro 0-05 ity of thiazide 11:10: [place] 10-12.5 mg 33 Medical per tablet Branch linaCLOtide 2021-03 Yes Univer s (LINZESS) 0-05 ity of 290 mcg Cap 11:10: [address] pantoprazol 2021-03 Yes 1 tablet [facility] [place] [facility] 40 mg EC 0-05 ity of tablet 11:10: [address] lisinopriL- 2021-03 Yes 1 tablet [facility] [place] hydrochloro 0-05 ity of thiazide 11:10: [place] 10-12.5 mg 33 Medical per tablet [place] linaCLOtide 2021-03 Yes Univer s (LINZESS) 0-05 ity of 290 mcg Cap 11:10: [address] pantoprazol 2021-03 Yes 1 tablet [facility] [place] [facility] 40 mg EC 0-05 ity of tablet 11:10: [address] lisinopriL- 2021-03 Yes 1 tablet [facility] [place] hydrochloro 0-05 ity of thiazide 11:10: [place] 10-12.5 mg 33 Medical per tablet [place] linaCLOtide 2021-03 Yes Univer s (LINZESS) 0-05 ity of 290 mcg Cap 11:10: [address] pantoprazol 2021-03 Yes 1 tablet [facility] [place] [facility] 40 mg EC 0-05 ity of tablet 11:10: [address] lisinopriL- 2021-03 Yes 1 tablet [facility] [place] hydrochloro 0-05 ity of thiazide 11:10: [place] 10-12.5 mg 33 Medical per tablet Branch linaCLOtide 2021-03 Yes Univer s (LINZESS) 0-05 ity of 290 mcg Cap 11:10: [address] pantoprazol 2021-03 Yes 1 tablet [facility] [place] [facility] 40 mg EC 0-05 ity of tablet 11:10: [address] lisinopriL- 2021-03 Yes 1 tablet [facility] [place] hydrochloro 0-05 ity of thiazide 11:10: [place] 10-12.5 mg 33 Medical per tablet Branch linaCLOtide 2021-03 Yes Univer s (LINZESS) 0-05 ity of 290 mcg Cap 11:10: [address] pantoprazol 2021-03 Yes 1 tablet [facility] [place] [facility] 40 mg EC 0-05 ity of tablet 11:10: [address] lisinopriL- 2021-03 Yes 1 tablet [facility] [place] hydrochloro 0-05 ity of thiazide 11:10: [place] 10-12.5 mg 33 Medical per tablet Branch linaCLOtide 2021-03 Yes Univer s (LINZESS) 0-05 ity of 290 mcg Cap 11:10: [address] pantoprazol 2021-03 Yes 1 tablet [facility] [place] [facility] 40 mg EC 0-05 ity of tablet 11:10: [address] lisinopriL- 2021-03 Yes 1 tablet [facility] [place] hydrochloro 0-05 ity of thiazide 11:10: [place] 10-12.5 mg 33 Medical per tablet [place] linaCLOtide 2021-03 Yes Univer s (LINZESS) 0-05 ity of 290 mcg Cap 11:10: [address] pantoprazol 2021-03 Yes 1 tablet [facility] [place] [facility] 40 mg EC 0-05 ity of tablet 11:10: [address] lisinopriL- 2021-03 Yes 1 tablet [facility] [place] hydrochloro 0-05 ity of thiazide 11:10: [place] 10-12.5 mg 33 Medical per tablet [place] linaCLOtide 2021-03 Yes Univer s (LINZESS) 0-05 ity of 290 mcg Cap 11:10: [address] pantoprazol 2021-03 Yes 1 tablet [facility] [place] [facility] 40 mg EC 0-05 ity of tablet 11:10: [address] lisinopriL- 2021-03 Yes 1 tablet [facility] [place] hydrochloro 0-05 ity of thiazide 11:10: [place] 10-12.5 mg 33 Medical per tablet [place] linaCLOtide 2021-03 Yes Univer s (LINZESS) 0-05 ity of 290 mcg Cap 11:10: [address] pantoprazol 2021-03 Yes 1 tablet [facility] [place] [facility] 40 mg EC 0-05 ity of tablet 11:10: [place] 33 Medical Branch lisinopriL- 2021-03 Yes 1 tablet [facility] [place] hydrochloro 0-05 ity of thiazide 11:10: [place] 10-12.5 mg 33 Medical per tablet Branch linaCLOtide 2021-03 Yes Univer s (LINZESS) 0-05 ity of 290 mcg Cap 11:10: [address] pantoprazol 2021-03 Yes 1 tablet [facility] [place] [facility] 40 mg EC 0-05 ity of tablet 11:10: [address] lisinopriL- 2021-03 Yes 1 tablet [facility] [place] hydrochlor[facility] 0-05 ity of thiazide 11:10: [place] 10-12.5 mg 33 Medical per tablet Branch linaCLOtide 2021-03 Yes Un[facility] (LINZESS) 0-05 ity of 290 mcg Cap 11:10: [address] pantoprazol 2021-03 Yes 1 tablet [facility] [place] [facility] 40 mg EC 0-05 ity of tablet 11:10: [address] pantoprazol 2021-03 Yes 1 tablet [facility] [place] [facility] 40 mg EC 0-05 ity of tablet 11:10: [address] pantoprazol 2021-03 Yes 1 tablet [facility] [place] [facility] 40 mg EC 0-05 ity of tablet 11:10: [address] pantoprazol 2021-03 Yes 1 tablet [facility] [place] [facility] 40 mg EC 0-05 ity of tablet 11:10: [address] zolpidem 5 2021-03 Yes 5mg Take 5 mg [facility] [place] mg tablet 0-05 by mouth ity of 11:07: at bedtime [place] [id number] as needed Medical for Branch Insomnia. zolpidem 2021-03 Yes 5mg Take 5 mg [facility] [place] mg tablet 0-05 by mouth ity of 11:07: at bedtime [place] [id number] as needed Medical for Branch Insomnia. zolpidem 5 2021-03 Yes 5mg Take 5 mg [facility] [place] mg tablet 0-05 by mouth ity of 11:07: at bedtime [place] [id number] as needed Medical for Branch Insomnia. zolpidem 5 2021-03 Yes 5mg Take 5 mg [facility] [place] mg tablet 0-05 by mouth ity of 11:07: at bedtime [place] [id number] as needed Medical for Branch Insomnia. zolpidem [...] by mouth ity of 11:07: at bedtime [place] 37 as needed Medical for Branch Insomnia. zolpidem 5 2021-03 Yes 5mg Take 5 mg [facility] [place] mg tablet 0-05 by mouth ity of 11:07: at bedtime [place] 37 as needed Medical for Branch Insomnia. zolpidem 2021-03 Yes 5mg Take 5 mg [facility] [place] mg tablet 0-05 by mouth ity of 11:07: at bedtime [place] 37 as needed Medical for Branch Insomnia. zolpidem 2021-03 Yes 5mg Take 5 mg [facility] [place] mg tablet 0-05 by mouth ity of 11:07: at bedtime [place] 37 as needed Medical for Branch Insomnia. zolpidem 2021-03 Yes 5mg Take 5 mg [facility] [place] mg tablet 0-05 by mouth ity of 11:07: at bedtime [place] 37 as needed Medical for Branch Insomnia. zolpidem 2021-03 Yes 5mg Take 5 mg [facility] [place] mg tablet 0-05 by mouth ity of 11:07: at bedtime [place] [id number] as needed Medical for Branch Insomnia. zolpidem 2021-03 Yes 5mg Take 5 mg [facility] [place] mg tablet 0-05 by mouth ity of 11:07: at bedtime [place] [id number] as needed Medical for Branch Insomnia. zolpidem 2021-03 Yes 5mg Take 5 mg [facility] [place] mg tablet 0-05 by mouth ity of 11:07: at bedtime [place] [id number] as needed Medical for Branch Insomnia. Cholecalcif 2021-03 Yes 5000U Take 5,000 [facility] [place], 0-05 Units by ity of Vitamin D3, 00:00: [place]. [place] 125 mcg 00 Medical (5,000 Branch unit) tablet Cholecalcif 2021-03 Yes 5000U Take 5,000 [facility] [place], 0-05 Units by ity of Vitamin D3, 00:00: mouth. [place] 125 mcg 00 Medical (5,000 Branch unit) tablet Cholecalcif 2021-03 Yes 5000U Take 5,000 [facility] [place], 0-05 Units by ity of Vitamin D3, 00:00: mouth. [place] 125 mcg 00 Medical (5,000 Branch unit) tablet Cholecalcif 2022-1 Yes 5000U Take 5,000 [facility] [place], 0-05 Units by ity of Vitamin D3, 00:00: mouth. [place] 125 mcg 00 Medical (5,000 Branch unit) tablet Cholecalcif 2022-1 Yes 5000U Take 5,000 [facility] [place], 0-05 Units by ity of Vitamin D3, 00:00: mouth. [place] 125 mcg 00 Medical (5,000 Branch unit) tablet Cholecalcif 2022-1 Yes 5000U Take 5,000 [facility] [place], 0-05 Units by ity of Vitamin D3, 00:00: mouth. [place] 125 mcg 00 Medical (5,000 Branch unit) tablet Cholecalcif 2022-1 Yes 5000U Take 5,000 [facility] [place], 0-05 Units by ity of Vitamin D3, 00:00: mouth. [place] 125 mcg 00 Medical (5,000 Branch unit) tablet Cholecalcif 2022-1 Yes 5000U Take 5,000 [facility] [place], 0-05 Units by ity of Vitamin D3, 00:00: mouth. [place] 125 mcg 00 Medical (5,000 Branch unit) tablet Cholecalcif 2022-1 Yes 5000U Take 5,000 [facility], 0-05 Units by ity of Vitamin D3, 00:00: mouth. [place] 125 mcg 00 Medical (5,000 Branch unit) tablet Cholecalcif 2022-1 Yes 5000U Take 5,000 [facility], 0-05 Units by ity of Vitamin D3, 00:00: mouth. [place] 125 mcg 00 Medical (5,000 Branch unit) tablet Cholecalcif 2022-1 Yes 5000U Take 5,000 [facility], 0-05 Units by ity of Vitamin D3, 00:00: mouth. [place] 125 mcg 00 Medical (5,000 Branch unit) tablet Cholecalcif 2022-1 Yes 5000U Take 5,000 [facility], 0-05 Units by ity of Vitamin D3, 00:00: mouth. [place] 125 mcg 00 Medical (5,000 Branch unit) tablet Cholecalcif 2022-1 Yes 5000U Take 5,000 [facility], 0-05 Units by ity of Vitamin D3, 00:00: mouth. [place] 125 mcg 00 Medical (5,000 Branch unit) tablet Cholecalcif 2022-1 Yes 5000U Take 5,000 [facility], 0-05 Units by ity of Vitamin D3, 00:00: mouth. [place] 125 mcg 00 Medical (5,000 Branch unit) tablet Cholecalcif 2022-1 Yes 5000U Take 5,000 [facility], 0-05 Units by ity of Vitamin D3, 00:00: mouth. [place] 125 mcg 00 Medical (5,000 Branch unit) tablet Cholecalcif 2022-1 Yes 5000U Take 5,000 [facility], 0-05 Units by ity of Vitamin D3, 00:00: mouth. [place] 125 mcg 00 Medical (5,000 Branch unit) tablet Cholecalcif 2022-1 Yes 5000U Take 5,000 [facility], 0-05 Units by ity of Vitamin D3, 00:00: mouth. [place] 125 mcg 00 Medical (5,000 Branch unit) tablet Cholecalcif 2022-1 Yes 5000U Take 5,000 [facility], 0-05 Units by ity of Vitamin D3, 00:00: mouth. [place] 125 mcg 00 Medical (5,000 Branch unit) tablet Cholecalcif 2022-1 Yes 5000U Take 5,000 [facility], 0-05 Units by ity of Vitamin D3, 00:00: mouth. [place] 125 mcg 00 Medical (5,000 Branch unit) tablet Cholecalcif 2022-1 Yes 5000U Take 5,000 [facility], 0-05 Units by ity of Vitamin D3, 00:00: mouth. [place] 125 mcg 00 Medical (5,000 Branch unit) tablet Cholecalcif 2022-1 Yes 5000U Take 5,000 [facility], 0-05 Units by ity of Vitamin D3, 00:00: mouth. [place] 125 mcg 00 Medical (5,000 Branch unit) tablet Cholecalcif 2022-1 Yes 5000U Take 5,000 [facility], 0-05 Units by ity of Vitamin D3, 00:00: mouth. [place] 125 mcg 00 Medical (5,000 Branch unit) tablet Cholecalcif 2022-1 Yes 5000U Take 5,000 [facility], 0-05 Units by ity of Vitamin D3, 00:00: mouth. [place] 125 mcg 00 Medical (5,000 Branch unit) tablet Cholecalcif 2022-1 Yes 5000U Take 5,000 [facility], 0-05 Units by ity of Vitamin D3, 00:00: mouth. [place] 125 mcg 00 Medical (5,000 Branch unit) tablet Cholecalcif 2022-1 Yes 5000U Take 5,000 [facility], 0-05 Units by ity of Vitamin D3, 00:00: mouth. [place] 125 mcg 00 Medical (5,000 Branch unit) tablet Cholecalcif 2-1 Yes 5000U Take 5,000 [facility], 0-05 Units by ity of Vitamin D3, 00:00: mouth. [place] 125 mcg 00 Medical (5,000 Branch unit) tablet Cholecalcif 2022-1 Yes 5000U Take 5,000 [facility], 0-05 Units by ity of Vitamin D3, 00:00: mouth. [place] 125 mcg 00 Medical (5,000 Branch unit) tablet Cholecalcif 2022-1 Yes 5000U Take 5,000 [facility], 0-05 Units by ity of Vitamin D3, 00:00: mouth. [place] 125 mcg 00 Medical (5,000 Branch unit) tablet Cholecalcif 2022-1 Yes 5000U Take 5,000 [facility], 0-05 Units by ity of Vitamin D3, 00:00: mouth. [place] 125 mcg 00 Medical (5,000 Branch unit) tablet Cholecalcif 2-1 Yes 5000U Take 5,000 [facility], 0-05 Units by ity of Vitamin D3, 00:00: mouth. [place] 125 mcg 00 Medical (5,000 Branch unit) tablet Cholecalcif 2-1 Yes 5000U Take 5,000 [facility], 0-05 Units by ity of Vitamin D3, 00:00: mouth. [place] 125 mcg 00 Medical (5,000 Branch unit) tablet Cholecalcif 2022-1 Yes 5000U Take 5,000 [facility], 0-05 Units by ity of Vitamin D3, 00:00: mouth. [place] 125 mcg 00 Medical (5,000 Branch unit) tablet Cholecalcif 2022-1 Yes 5000U Take 5,000 [facility], 0-05 Units by ity of Vitamin D3, 00:00: mouth. [place] 125 m[place] 00 Medical (5,000 Branch unit) tablet Ambien 10 Ambien 10 2021-03 No QD [...] 10 MG MG 0-05 MG 00:00: 00 letrozole 2021-03 Yes [address] [facility] ([facility] 0-05 [facility]5 [facility]: Medical tablet 00 [place] letrozole 2021-03 Yes [address] [facility] ([facility]) 0-05 [facility] 2[facility]5 mg 00:00: Medical tablet 00 [place] cholecalcif 2021-03 Yes Infiltratin 5000U Take 1 [facility], 0-05 g duct tablet ity of vitamin D3, 00:00: carcinoma, (5,000 [place] (Vitamin 00 NOS of Units) by D3) 5,000 upper-outer mouth An derso units tab quadrant of daily. OTC n tablet breast Cancer <Female; Center Left> letrozole 2021-03 Yes [address] [facility] ([facility]) 0-05 [facility] 2[facility]5 mg 00:00: Medical tablet 00 [place] cholecalcif 2021-03 Yes Infiltratin 5000U Take 1 [facility], 0-05 g duct tablet ity of vitamin [...] [place] tablet 00 NOS of by mouth upper-outer daily. [place] o quadrant of n breast Cancer <Female; Center Left> cholecalcif 2021-03 Yes Infiltratin 5000U Take 1 [facility], 0-05 g duct tablet ity of vitamin D3, 00:00: carcinoma, (5,000 [place] (Vitamin 00 NOS of Units) by D3) 5,000 upper-outer mouth An derso units tab quadrant of daily. OTC n tablet breast Cancer <Female; Center Left> Cholecalcif 2021-03- No 5000U Take 5,000 [facility], 0-05 11-09 Units by ity of Vitamin D3, 00:00: 00:00 mouth. [place] 125 mcg 00 :00 Medical (5,000 Branch unit) tablet Cholecalcif 2021-03- No 5000U Take 5,000 [facility], 0-05 11-09 Units by ity of Vitamin D3, 00:00: 00:00 mouth. [place] 125 mcg 00 :00 Medical (5,000 Branch unit) tablet letrozole 2021-03- No Infiltratin 2.5mg Take 1 [facility] ([facility]) 0-05 01-20 g duct tablet ity of 2.5 mg 00:00: 00:00 carcinoma, (2.5 mg) [place] tablet 00 :00 NOS of by mouth upper-outer daily. [place] o quadrant of n breast Cancer <Female; Center Left> letrozole 2021-03- No Infiltratin 2.5mg Take 1 [facility] ([facility]ARA) 0-05 01-20 g duct tablet ity of 2.5 mg 00:00: 00:00 carcinoma, (2.5 mg) [place] tablet 00 :00 NOS of by mouth upper-outer daily. [place] o quadrant of n breast Cancer <Female; Center Left> Mounjaro Mounjaro 2021-03- No Mounjaro 2.5 2.5 [...] 3 ity of capsule 14:11: 00:00 (three) [place] 16 :00 times Medical daily. Branch pregabalin 2021-03- No 75mg Take 75 mg [facility] 75 mg 0-03 10-03 by mouth 3 ity of capsule 14:11: 00:00 (three) [place] 16 :00 times Medical daily. Branch traMADoL [...] 00 (six) Medical hours as Branch needed. traMADol traMADol 2021-03 No 1{table traMADol HCl [...] 0-03 t_as_ne HCl 50 MG 00:00: eded} traMADol traMADol 2021-03 No 1{table traMADol HCl [...] t_as_ne HCl 50 MG 00:00: eded} 00 pregabalin 2021-03 Yes Q.5D 2 (two) [facility] ([facility]-03 times [facility] 225 MG 00:00: daily . Medical capsule 00 [place] pregabalin 2021-03 Yes [address] [facility] [address] [facility] ([facility] 75 0-03 [facility] capsule 00:00: Medical 00 [place] pregabalin 2021-03 Yes Q.5D 2 (two) [facility] ([facility]-03 times [facility] 225 MG 00:00: daily . Medical capsule 00 [place] traMADoL 50 2021-03- No 50mg Take 50 mg [facility] mg tablet 001-29 by mouth ity o f 00:00: 00:00 every 6 [place] 00 :00 (six) Medical hours as Branch needed. traMADoL 50 2021-03- No 50mg Take 50 mg [facility] mg tablet 001-29 by mouth ity o f 00:00: 00:00 every 6 [place] 00 :00 (six) Medical hours as Branch needed. pregabalin 2021-03- No [id number] 150mg Take 2 [facility] ([facility]) 75 0-03 01-02 capsules ity of mg capsule 00:00: 05:59 by mouth [place] 00 :00 in the Medical morning Branch and 2 capsules in the evening. Do all this for 90 days. pregabalin 2021-03- No [id number] 150mg Take 2 [facility] ([facility]) 75 0-03 01-02 capsules ity of mg capsule 00:00: 05:59 by mouth [place] 00 :00 in the Medical morning Branch and 2 capsules in the evening. Do all this for 90 days. pregabalin 2021-03- No [id number] 150mg Take 2 [facility] ([facility]) 75 0-03 01-02 capsules ity of mg capsule 00:00: 05:59 by mouth [place] 00 :00 in the Medical morning Branch and 2 capsules in the evening. Do all this for 90 days. pregabalin 2021-03- No [id number] 150mg Take 2 [facility] ([facility]) 75 0-03 01-02 capsules ity of mg capsule 00:00: 05:59 by mouth [place] 00 :00 in the Medical morning Branch and 2 capsules in the evening. Do all this for 90 days. pregabalin 2021-03- No [id number] 150mg Take 2 [facility] ([facility]) 75 0-03 01-02 capsules ity of mg capsule 00:00: 05:59 by mouth [place] 00 :00 in the Medical morning Branch and 2 capsules in the evening. Do all this for 90 days. pregabalin 2021-03- No [id number] 150mg Take 2 [facility] (LYRICA) 75 0-03 01-02 capsules ity of mg capsule 00:00: 05:59 by mouth [place] 00 :00 in the Medical morning Branch and 2 capsules in the evening. Do all this for 90 days. pregabalin 2021-03- No [id number] 150mg Take 2 [facility] (LYRICA) 75 0-03 01-02 capsules ity of mg capsule 00:00: 05:59 by mouth [place] 00 :00 in the Medical morning Branch and 2 capsules in the evening. Do all this for 90 days. pregabalin 2021-03- No [id number] 150mg Take 2 [facility] (LYRICA) 75 0-03 01-02 capsules ity of mg capsule 00:00: 05:59 by mouth [place] 00 :00 in the Medical morning Branch and 2 capsules in the evening. Do all this for 90 days. pregabalin 2021-03- No [id number] 150mg Take 2 [facility] (LYRICA) 75 0-03 01-02 capsules ity of mg capsule 00:00: 05:59 by mouth [place] 00 :00 in the Medical morning Branch and 2 capsules in the evening. Do all this for 90 days. pregabalin 2021-03- No [id number] 150mg Take 2 [facility] (LYRICA) 75 0-03 01-02 capsules ity of mg capsule 00:00: 05:59 by mouth [place] 00 :00 in the Medical morning Branch and 2 capsules in the evening. Do all this for 90 days. pregabalin 2021-03- No [id number] 150mg Take 2 [facility] (LYRICA) 75 0-03 11-04 capsules ity of mg capsule 00:00: 00:00 by mouth [place] 00 :00 in the Medical morning Branch and 2 capsules in the evening. Do all this for 90 days. pregabalin 2021-03- No [id number] 150mg Take 2 [facility] (LYRICA) 75 0-03 11-04 capsules ity of mg capsule 00:00: 00:00 by mouth [place] 00 :00 in the [facility] morning Branch and 2 capsules in the evening. Do all this for 90 days. atorvastati 0 Yes 10mg Take 10 mg Univers n 10 mg 9-24 by mouth ity of tablet 00:00: in the [place] 00 morning. Medical Branch atorvastati 2021-0 Yes 10mg Take 10 mg Univers n 10 mg 9-24 by mouth ity of tablet 00:00: in the [place] 00 morning. [facility] Branch atorvastati 2021-0 Yes 10mg Take 10 mg Univers n 10 mg 9-24 by mouth ity of tablet 00:00: in the [place] 00 morning. [facility] Branch atorvastati 2021-0 Yes 10mg Take 10 mg Univers n 10 mg 9-24 by mouth ity of tablet 00:00: in the [place] 00 morning. Medical Branch atorvastati 2022-0 Yes 10mg Take 10 mg [facility] n 10 mg 9-24 by mouth ity of tablet 00:00: in the [place] 00 morning. Medical Branch atorvastati 2022-0 Yes 10mg Take 10 mg [facility] n 10 mg 9-24 by mouth ity of tablet 00:00: in the [place] 00 morning. Medical Branch atorvastati 2022-0 Yes 10mg Take 10 mg [facility] n 10 mg 9-24 by mouth ity of tablet 00:00: in the [place] 00 morning. Medical Branch atorvastati 2022-0 Yes 10mg Take 10 mg [facility] n 10 mg 9-24 by mouth ity of tablet 00:00: in the [place] 00 morning. Medical Branch atorvastati 2022-0 Yes 10mg Take 10 mg [facility] n 10 mg 9-24 by mouth ity of tablet 00:00: in the [place] 00 morning. Medical Branch atorvastati 2022-0 Yes 10mg Take 10 mg [facility] n 10 mg 9-24 by mouth ity of tablet 00:00: in the [place] morning. Medical Branch atorvastati 2022-0 Yes 10mg Take 10 mg [facility] n 10 mg 9-24 by mouth ity of tablet 00:00: in the [place] 00 morning. Medical Branch atorvastati 2022-0 Yes 10mg Take 10 mg Univers n 10 mg 9-24 by mouth ity of tablet 00:00: in the [place] 00 morning. Medical Branch atorvastati 2022-0 Yes 10mg Take 10 mg [facility] n 10 mg 9-24 by mouth ity of tablet 00:00: in the [place] 00 morning. Medical Branch atorvastati 2022-0 Yes 10mg Take 10 mg [facility] n 10 mg 9-24 by mouth ity of tablet 00:00: in the [place] 00 morning. Medical Branch atorvastati 2022-0 Yes 10mg Take 10 mg Univers n 10 mg 9-24 by mouth ity of tablet 00:00: in the [place] 00 morning. Medical Branch atorvastati 2022-0 Yes 10mg Take 10 mg Univers n 10 mg 9-24 by mouth ity of tablet 00:00: in the [place] 00 morning. Medical Branch atorvastati 2022-0 Yes 10mg Take 10 mg [facility] n 10 mg 9-24 by mouth ity of tablet 00:00: in the [place] 00 morning. Medical Branch atorvastati 2022-0 Yes 10mg Take 10 mg [facility] n 10 mg 9-24 by mouth ity of tablet 00:00: in the [place] 00 morning. Medical Branch atorvastati 2022-0 Yes 10mg Take 10 mg [facility] n 10 mg 9-24 by mouth ity of tablet 00:00: in the [place] 00 morning. Medical Branch atorvastati 2022-0 Yes 10mg Take 10 mg Univers n 10 mg 9-24 by mouth ity of tablet 00:00: in the [place] 00 morning. Medical Branch atorvastati 2022-0 Yes 10mg Take 10 mg [facility] n 10 mg 9-24 by mouth ity of tablet 00:00: in the [place] morning. Medical Branch atorvastati 2022-0 Yes 10mg Take 10 mg Univers n 10 mg 9-24 by mouth ity of tablet 00:00: in the [place] morning. Medical Branch atorvastati 2022-0 Yes 10mg Take 10 mg [facility] n 10 mg 9-24 by mouth ity of tablet 00:00: in the [place] morning. Medical Branch atorvastati 2022-0 Yes 10mg Take 10 mg Univers n 10 mg 9-24 by mouth ity of tablet 00:00: in the [place] 00 morning. Medical Branch atorvastati 2-0 Yes 10mg Take 10 mg Univers n 10 mg 9-24 by mouth ity of tablet 00:00: in the [place] 00 morning. Medical Branch atorvastati 2022-0 Yes 10mg Take 10 mg Univers n 10 mg 9-24 by mouth ity of tablet 00:00: in the [place] morning. Medical Branch atorvastati 2022-0 Yes 10mg Take 10 mg Univers n 10 mg 9-24 by mouth ity of tablet 00:00: in the [place] 00 morning. Medical Branch atorvastati 2022-0 Yes 10mg Take 10 mg [facility] n 10 mg 9-24 by mouth ity of tablet 00:00: in the [place] 00 morning. Medical Branch atorvastati 2022-0 Yes 10mg Take 10 mg [facility] n 10 mg 9-24 by mouth ity of tablet 00:00: in the [place] 00 morning. Medical Branch atorvastati 2022-0 Yes 10mg Take 10 mg [facility] n 10 mg 9-24 by mouth ity of tablet 00:00: in the [place] [address] [facility] atorvasta Yes 10mg Take 10 mg Univers n 10 mg 9-24 by mouth ity of tablet 00:00: in the [place] [address] [facility] atorvastati Yes 10mg Take 10 mg Univers n 10 mg 9-24 by mouth ity of tablet 00:00: in the [place] [address] [facility] Yes 10[facility] Take 10 mg [facility] n 10 mg 9-24 by mouth ity of tablet 00:00: in the [place] [address] [facility] atorvasta Yes [address] [facility] (LIPITOR[facility] 9-24 [facility] 10 MG 00:00: Medical tablet [address] [place] [address] [facility] Yes TAKE ONE [place] (LIPITOR) 924 (1) ity of 10 mg 00:00: TABLET(S) [place] tablet 00 BY MOUTH ONCE A [place]o DAY. n [facility] lisinopriL- Yes TAKE ONE [place] hydrochloro 24 (1) ity of thiazide 00:00: [place] (PRINZIDE,Z 00 BY MOUTH MD PRITCHARD) ONCE A [place] 10-12.5 mg DAY. n per tablet [facility] 2022- No 10mg Take 10 mg Univers n 10 mg 12-14- by mouth ity of tablet 00:00: 00:00 in the [place] 00 :[address] [facility] atorvasta 2022- No 10mg Take 10 mg Univers n 10 mg 9-24 01-29 by mouth ity of tablet 00:00: 00:00 in the [place] 00 :[address] [facility] atorvasta 2022- No TAKE ONE U nivers n (LIPITOR) 12-14 05-15 (1) ity of 10 mg 00:00: 00:00 TABLET(S) [place] tablet 00 :00 BY MOUTH ONCE A [place] DAY. n [facility] lisinopriL- 2022- No TAKE ONE U nivers hydrochloro 12-14 05-15 (1) ity of thiazide 00:00: 00:00 TABLET(S) [place] (PRINZIDE,Z 00 :00 BY MOUTH MD PRITCHARD) ONCE A [place] 10-12.5 mg DAY. n per tablet [facility] 2022- No TAKE ONE U nivers n (LIPITOR) 12-14 05-15 (1) ity of 10 mg 00:00: 00:00 TABLET(S) [place] tablet 00 :00 BY MOUTH ONCE A [place] DAY. n [facility] lisinopriL- 2022- No TAKE ONE U nivers hydrochloro 12-14 0515 (1) ity of thiazide 00:00: 00:00 TABLET(S) [place] (PRINZIDE,Z 00 :00 BY MOUTH MD PRITCHARD) ONCE A [place] 10-12.5 mg DAY. n per tablet [facility] atorvastati 2021- No [address] [facility] (LIPITOR) 12-14 [facility] 10 MG 00:00: 00:00 Medical tablet 00 :00 [place] atorvastati 2021- No [address] [facility] (LIPITOR) 12-14 [facility] 10 MG 00:00: 00:00 Medical tablet 00 :00 [place] pregabalin Yes Drug-induce 150mg Take 1 [facility] (Lyrica) 9-12 d capsule ity of 150 mg 00:00: polyneuropa (150 mg) [place] capsule 00 thy by mouth twice Anderso daily. n [facility] pregabalin 2022- No Drug-induce 150mg Take 1 [facility] (Lyrica) 12-02-16 d capsule ity of 150 mg 00:00: 00:00 polyneuropa (150 mg) [place] capsule 00 :00 thy by mouth twice Anderso daily. n [facility] pregabalin 2022- No Drug-induce 150mg Take 1 [facility] (Lyrica) 12-02 11-16 d capsule ity of 150 mg 00:00: 00:00 polyneuropa (150 mg) [place] capsule 00 :00 thy by mouth twice Anderso daily. n [facility] naproxen 2021- No 500mg 500 mg, Univ ers (NAPROSYN) 8-27 08-27 Oral, ity of tablet 500 21:30: 20:49 ONCE, 1 [place] mg 00 :00 dose, On Medical Sat Branch 11/16/21 at 1630, Routine naproxen 2021-0 Yes [id number] 500mg Take 1 Uni vers (NAPROSYN) 11-16 tablet by ity of 500 mg 00:00: mouth in [place] tablet 00 the Medical morning Branch and 1 tablet in the evening. Take with meals. naproxen 2021-0 Yes [id number] 500mg Take 1 Uni vers (NAPROSYN) 11-16 tablet by ity of 500 mg 00:00: mouth in [place] tablet 00 the Medical morning Branch and 1 tablet in the evening. Take with meals. naproxen 0 Yes [id number] 500mg Take 1 Uni vers (NAPROSYN) 11-16 tablet by ity of 500 mg 00:00: mouth in [place] tablet 00 the Medical morning Branch and 1 tablet in the evening. Take with meals. naproxen 2021-0 Yes [id number] 500mg Take 1 Uni vers (NAPROSYN) 11-16 tablet by ity of 500 mg 00:00: mouth in [place] tablet 00 the Medical morning Branch and 1 tablet in the evening. Take with meals. naproxen 2021-0 2021- No [id number] 500mg Take 1 [place] (NAPROSYN) 11-16 10-05 tablet by ity of 500 mg 00:00: 00:00 mouth in [place] tablet 00 :00 the Medical morning Branch and 1 tablet in the evening. Take with meals. naproxen 2021-0 2022- No [id number] 500mg Take 1 [place] (NAPROSYN) 11-16 10-05 tablet by ity of 500 mg 00:00: 00:00 mouth in [place] tablet 00 :00 the Medical morning Branch and 1 tablet in the evening. Take with meals. naproxen 2021-0 2022- No [id number] 500mg Take 1 [place] (NAPROSYN) 11-16 10-05 tablet by ity of 500 mg 00:00: 00:00 mouth in [place] tablet 00 :00 the Medical morning Branch and 1 tablet in the evening. Take with meals. pantoprazol 2021-0 2022- No 20mg Take 20 mg Univers e 10-29 by mouth ity of (PROTONIX) 11:47: 00:00 daily with [place] 40 mg EC 47 :00 breakfast. MD sherron childers [facility] pregabalin 2021- No Drug-induce 150mg Take 1 [facility] (Lyrica) 10-29 d capsule ity of 150 mg 00:00: 00:00 polyneuropa (150 mg) [place] capsule 00 :00 thy by mouth MD reymundo Tuttle daily. n [facility] pregabalin 2021- No Drug-induce 150mg Take 1 [facility] (Lyrica) 09-27 d capsule ity of 150 mg 00:00: 00:00 polyneuropa (150 mg) [place] capsule 00 :00 thy by mouth MD reymundo Tuttle daily. n [facility] Atorvastati Atorvastati No 1{table QD Atorvastat n Calcium n Calcium 6-30 t} in Calcium 10 MG 10 MG 00:00: 10 MG 00 Ambien 10 Ambien 10 No QD Ambien 10 MG MG 6-30 MG 00:00: 00 Atorvastati Atorvastati No 1{table QD Atorvastat n Calcium n Calcium 6-30 t} in Calcium 10 MG 10 MG 00:00: 10 MG 00 Ambien 10 Ambien 10 No QD Ambien 10 MG MG 6-30 MG 00:00: 00 Lomaira 8 Lomaira 8 2021- No TID [place] 8 MG MG 6-30 07-30 MG 00:00: 00:00 00 :00 [place]om[place]a 8 Lomaira 8 2021- No TID [place] 8 MG MG 6-30 07-30 MG 00:00: 00:00 00 :00 traMADol traMADol 2021- No 1{table traMADol HCl [...] 6-14 t_as_ne HCl 50 MG 00:00: eded} traMADol traMADol 2021-0 No 1{table traMADol HCl 50 MG HCl 50 MG 6-14 t_as_ne HCl 50 MG 00:00: eded} traMADol traMADol 2021-0 No 1{table traMADol HCl 50 MG HCl 50 MG 6-14 t_as_ne HCl 50 MG 00:00: eded} traMADol traMADol 2021-0 No 1{table traMADol HCl 50 MG HCl 50 MG 6-02 t_as_ne HCl 50 MG 00:00: eded} 00 Ambien 10 Ambien 10 No QD Ambien 10 MG MG 6-02 MG 00:00: 00 Lisinopril- Lisinopril- 2021-0 No 1{table QD Lisinopril hydroCHLORO hydroCHLORO -02 t} -hydroCHLO thiazide thiazide 00:00: ROthiazide 10-12.5 MG 10-12.5 MG 00 10-12.5 MG Pseudoeph-B Pseudoeph-B No Pseudoeph- romphen-DM romphen-DM 08-22 Bromphen-D 30-2-10 30-2-10 00:00: M 30-2-10 MG/5ML MG/5ML 00 MG/5ML Kenalog Kenalog 0 No 40mg Common (Triamcinol (Triamcinol 08-22 S pirit one) one) 00:00: - [facility] 00 [facility] Bupivicaine Bupivicaine 0 No 2.5mg [place] [facility] 00:00: - [facility] 00 [facility] traMADol traMADol 2021-0 No 1{table traMADol HCl 50 MG HCl 50 MG 6-02 t_as_ne HCl 50 MG 00:00: eded} 00 Ambien 10 Ambien 10 0 No QD Ambien 10 MG MG 6-02 MG 00:00: 00 Lisinopril- Lisinopril- 2021-0 No 1{table QD Lisinopril hydroCHLORO hydroCHLORO 6-02 t} -hydroCHLO thiazide thiazide 00:00: ROthiazide 10-12.5 MG 10-12.5 MG 00 10-12.5 MG Pseudoeph-B Pseudoeph-B 2021-0 No Pseudoeph- romphen-DM romphen-DM 6-02 Bromphen-D 30-2-10 30-2-10 00:00: M 30-2-10 MG/5ML MG/5ML 00 MG/5ML Kenalog Kenalog 2021-0 No 40mg Common (Triamcinol (Triamcinol 08-22 S pirit one) one) 00:00: - [facility] 00 [facility] Bupivicaine Bupivicaine 2021-0 No 2.5mg [place] 08-22 [facility] 00:00: - [facility] traMADol traMADol 2021-0 No 1{table traMADol HCl 50 MG HCl 50 MG 08-22 t_as_ne HCl 50 MG 00:00: eded} 00 Lisinopril- Lisinopril- 2021-0 No 1{table QD Lisinopril hydroCHLORO hydroCHLORO 6-02 t} -hydroCHLO thiazide thiazide 00:00: ROthiazide 10-12.5 MG 10-12.5 MG 00 10-12.5 MG Pseudoeph-B Pseudoeph-B 2021-0 No Pseudoeph- romphen-DM romphen-DM -02 Bromphen-D 30-2-10 30-2-10 00:00: M 30-2-10 MG/5ML MG/5ML 00 MG/5ML Kenalog Kenalog 2021-0 No 40mg Common (Triamcinol (Triamcinol - S pirit one) one) 00:00: - [facility] 00 [facility] Bupivicaine Bupivicaine 2021-0 No 2.5mg [place] 08-22 [facility] 00:00: - [facility] 00 [facility] traMADol traMADol 2021-0 No 1{table traMADol HCl 50 MG HCl 50 MG - t_as_ne HCl 50 MG 00:00: eded} 00 Lisinopril- Lisinopril- 2021-0 No 1{table QD Lisinopril hydroCHLORO hydroCHLORO - t} -hydroCHLO thiazide thiazide 00:00: ROthiazide 10-12.5 MG 10-12.5 MG 00 10-12.5 MG Pseudoeph-B Pseudoeph-B 2021-0 No Pseudoeph- romphen-DM romphen-DM 6- Bromphen-D 30-2-10 302- 00:00: M 30-2-10 MG/5ML MG/5ML 00 MG/5ML Kenalog Kenalog 2021-0 No 40mg Common (Triamcinol (Triamcinol - S pirit one) one) 00:00: - [facility] 00 [facility] Bupivicaine Bupivicaine 2021-0 No 2.5mg [place] 08-22 Spirit 00:00: - [facility] 00 [facility] Pseudoeph-B Pseudoeph-B 2021-0 No Pseudoeph- romphen-DM romphen-DM - Bromphen-D 302-10 00:00: M 30-2-10 MG/5ML MG/5ML 00 MG/5ML traMADol traMADol 2021-0 No 1{table traMADol HCl 50 MG HCl 50 MG - t_as_ne HCl 50 MG 00:00: eded} 00 Kenalog Kenalog 2021-0 No 40mg Common (Triamcinol (Triamcinol -02 S pirit one) one) 00:00: - [facility] 00 [facility] Bupivicaine Bupivicaine 2021-0 No 2.5mg [facility] [place] 08-22 Spirit 00:00: - [facility] 00 [facility] Pseudoeph-B Pseudoeph-B 2021-0 No Pseudoeph- romphen-DM romphen-DM 6-02 Bromphen-D 30-2-10 302-10 00:00: M 30-2-10 MG/5ML MG/5ML 00 MG/5ML traMADol traMADol 2-0 No 1{table traMADol HCl 50 MG HCl 50 MG 6-02 t_as_ne HCl 50 MG 00:00: eded} 00 Kenalog Kenalog 2022-0 No 40mg Common (Triamcinol (Triamcinol - S pirit one) one) 00:00: - [facility] Bupivicaine Bupivicaine 2021-0 No 2.5mg [facility] [place] 08-22 Spirit 00:00: - [facility] Pseudoeph-B Pseudoeph-B 2021-0 No Pseudoeph- romphen-DM romphen-DM 6-02 Bromphen-D 30-2-10 30-2-10 00:00: M 30-2-10 MG/5ML MG/5ML 00 MG/5ML traMADol traMADol 2021-0 No 1{table traMADol HCl 50 MG HCl 50 MG 6- t_as_ne HCl 50 MG 00:00: eded} 00 Kenalog Kenalog 0 No 40mg Common (Triamcinol (Triamcinol -02 S pirit one) one) 00:00: - [facility] Bupivicaine Bupivicaine 2021-0 No 2.5mg [facility] [place] 08-22 Spirit 00:00: - [facility] traMADol traMADol 2021-0 No 1{table traMADol HCl 50 MG HCl 50 MG 6-02 t_as_ne HCl 50 MG 00:00: eded} 00 Pseudoeph-B Pseudoeph-B 2021-0 No Pseudoeph- romphen-DM romphen-DM 6-02 Bromphen-D 30-2-10 30-2-10 00:00: M 30-2-10 MG/5ML MG/5ML 00 MG/5ML Kenalog Kenalog 2021-0 No 40mg Common (Triamcinol (Triamcinol -02 S pirit one) one) 00:00: - [facility] Bupivicaine Bupivicaine 2021-0 No 2.5mg [facility] [place] 08-22 Spirit 00:00: - [facility] traMADol traMADol 2021-0 No 1{table traMADol HCl 50 MG HCl 50 MG 6-02 t_as_ne HCl 50 MG 00:00: eded} 00 Pseudoeph-B Pseudoeph-B 2021-0 No Pseudoeph- romphen-DM romphen-DM 6-02 Bromphen-D 30-2-10 30-2-10 00:00: M 30-2-10 MG/5ML MG/5ML 00 MG/5ML Kenalog Kenalog 2-0 No 40mg Common (Triamcinol (Triamcinol 6- S pirit one) one) 00:00: - [facility] Bupivicaine Bupivicaine 2021-0 No 2.5mg Common [place] 08-22 Spirit 00:00: - [facility] traMADol traMADol 2021-0 No 1{table traMADol HCl 50 MG HCl 50 MG 6- t_as_ne HCl 50 MG 00:00: eded} 00 Pseudoeph-B Pseudoeph-B 2021-0 No Pseudoeph- romphen-DM romphen-DM - Bromphen-D 30-2-10 30-2-10 00:00: M 30-2-10 MG/5ML MG/5ML 00 MG/5ML Kenalog Kenalog 2-0 No 40mg Common (Triamcinol (Triamcinol 6-02 S pirit one) one) 00:00: - [facility] Bupivicaine Bupivicaine 2021-0 No 2.5mg Common [place] 08-22 Spirit 00:00: - [facility] traMADol traMADol 2021-0 No 1{table traMADol HCl 50 MG HCl 50 MG 6- t_as_ne HCl 50 MG 00:00: eded} 00 Pseudoeph-B Pseudoeph-B 2021-0 No Pseudoeph- romphen-DM romphen-DM 6-02 Bromphen-D 30-2-10 30-2-10 00:00: M 30-2-10 MG/5ML MG/5ML 00 MG/5ML Kenalog Kenalog 2-0 No 40mg Common (Triamcinol (Triamcinol 6-02 S pirit one) one) 00:00: - [facility] Bupivicaine Bupivicaine 2-0 No 2.5mg Common [place] 08-22 Spirit 00:00: - [facility] traMADol traMADol 2021-0 No 1{table traMADol HCl 50 MG HCl 50 MG 6-02 t_as_ne HCl 50 MG 00:00: eded} 00 Pseudoeph-B Pseudoeph-B 2021-0 No Pseudoeph- romphen-DM romphen-DM 6-02 Bromphen-D 30-2-10 30-2-10 00:00: M 30-2-10 MG/5ML MG/5ML 00 MG/5ML Kenalog Kenalog 2021-0 No 40mg Common (Triamcinol (Triamcinol - S pirit one) one) 00:00: - [facility] Bupivicaine Bupivicaine 2021-0 No 2.5mg Common [place] 08-22 [facility] 00:00: - [facility] traMADol traMADol 2021-0 No 1{table traMADol HCl 50 MG HCl 50 MG 6- t_as_ne HCl 50 MG 00:00: eded} 00 Pseudoeph-B Pseudoeph-B 2021-0 No Pseudoeph- romphen-DM romphen-DM 6- Bromphen-D 30-2-10 302-10 00:00: M 30-2-10 MG/5ML MG/5ML 00 MG/5ML Kenalog Kenalog 2021-0 No 40mg Common (Triamcinol (Triamcinol - S pirit one) one) 00:00: - [facility] Bupivicaine Bupivicaine 2021-0 No 2.5mg Common [place] 08-22 [facility] 00:00: - [facility] traMADol traMADol 2021-0 No 1{table traMADol HCl 50 MG HCl 50 MG 6-02 t_as_ne HCl 50 MG 00:00: eded} 00 Pseudoeph-B Pseudoeph-B 2021-0 No Pseudoeph- romphen-DM romphen-DM 6-02 Bromphen-D 30-2-10 30-2-10 00:00: M 30-2-10 MG/5ML MG/5ML 00 MG/5ML Kenalog Kenalog 2-0 No 40mg Common (Triamcinol (Triamcinol 6- S pirit one) one) 00:00: - [facility] Bupivicaine Bupivicaine 2021-0 No 2.5mg Common [place] 08-22 [facility] 00:00: - [facility] traMADol traMADol 2021-0 No 1{table traMADol HCl 50 MG HCl 50 MG 6-02 t_as_ne HCl 50 MG 00:00: eded} 00 Pseudoeph-B Pseudoeph-B 0 No Pseudoeph- romphen-DM romphen-DM 08-22 Bromphen-D 30-2-10 30-2-10 00:00: M 30-2-10 MG/5ML MG/5ML 00 MG/5ML Kenalog Kenalog 2021-0 No 40mg Common (Triamcinol (Triamcinol 6- S pirit one) one) 00:00: - [facility] Bupivicaine Bupivicaine 2021-0 No 2.5mg Common [place] 08-22 [facility] 00:00: - [facility] traMADol traMADol 0 No 1{table traMADol HCl 50 MG HCl 50 MG 6-02 t_as_ne HCl 50 MG 00:00: eded} 00 Pseudoeph-B Pseudoeph-B 0 No Pseudoeph- romphen-DM romphen-DM 08-22 Bromphen-D 30-2-10 30-2-10 00:00: M 30-2-10 MG/5ML MG/5ML 00 MG/5ML Kenalog Kenalog 2021-0 No 40mg Common (Triamcinol (Triamcinol 6-02 S pirit one) one) 00:00: - [facility] Bupivicaine Bupivicaine 2021-0 No 2.5mg Common [place] 08-22 [facility] 00:00: - [facility] traMADol traMADol 2021-0 No 1{table traMADol HCl 50 MG HCl 50 MG 6-02 t_as_ne HCl 50 MG 00:00: eded} 00 Pseudoeph-B Pseudoeph-B 2021-0 No Pseudoeph- romphen-DM romphen-DM 6-02 Bromphen-D 30-2-10 30-2-10 00:00: M 30-2-10 MG/5ML MG/5ML 00 MG/5ML Kenalog Kenalog 2-0 No 40mg Common (Triamcinol (Triamcinol 08-22 S pirit one) one) 00:00: - [facility] Bupivicaine Bupivicaine 2021-0 No 2.5mg Common [place] 08-22 [facility] 00:00: - [facility] traMADol traMADol 2021-0 No 1{table traMADol HCl 50 MG HCl 50 MG 6- t_as_ne HCl 50 MG 00:00: eded} 00 Pseudoeph-B Pseudoeph-B 2021-0 No Pseudoeph- romphen-DM romphen-DM - Bromphen-D 30-2-10 30-2-10 00:00: M 30-2-10 MG/5ML MG/5ML 00 MG/5ML Kenalog Kenalog 2021-0 No 40mg Common (Triamcinol (Triamcinol - S pirit one) one) 00:00: - [facility] Bupivicaine Bupivicaine 2021-0 No 2.5mg Common [place] 08-22 [facility] 00:00: - [facility] traMADol traMADol 2021-0 No 1{table traMADol HCl 50 MG HCl 50 MG - t_as_ne HCl 50 MG 00:00: eded} 00 Pseudoeph-B Pseudoeph-B 2021-0 No Pseudoeph- romphen-DM romphen-DM 6-02 Bromphen-D 30-2-10 30-2-10 00:00: M 30-2-10 MG/5ML MG/5ML 00 MG/5ML Kenalog Kenalog 2-0 No 40mg Common (Triamcinol (Triamcinol - S pirit one) one) 00:00: - [facility] Bupivicaine Bupivicaine 2-0 No 2.5mg Common [place] 08-22 [facility] 00:00: - [facility] traMADol traMADol 2021-0 No 1{table traMADol HCl 50 MG HCl 50 MG 6-02 t_as_ne HCl 50 MG 00:00: eded} 00 Pseudoeph-B Pseudoeph-B 2021-0 No Pseudoeph- romphen-DM romphen-DM 6-02 Bromphen-D 30-2-10 30-2-10 00:00: M 30-2-10 MG/5ML MG/5ML 00 MG/5ML Kenalog Kenalog 2021-0 No 40mg Common (Triamcinol (Triamcinol 6- S pirit one) one) 00:00: - [facility] Bupivicaine Bupivicaine 2-0 No 2.5mg Common [place] 08-22 [facility] 00:00: - [facility] Pseudoeph-B Pseudoeph-B 2021-0 No Pseudoeph- romphen-DM romphen-DM - Bromphen-D 30-2-10 302-10 00:00: M 30-2-10 MG/5ML MG/5ML 00 MG/5ML traMADol traMADol 2021-0 No 1{table traMADol HCl 50 MG HCl 50 MG 6-02 t_as_ne HCl 50 MG 00:00: eded} 00 Bupivicaine Bupivicaine 2021-0 No 2.5mg [facility] [place] 08-22 [facility] 00:00: - [facility] Kenalog Kenalog 2021-0 No 40mg Common (Triamcinol (Triamcinol 6-02 S pirit one) one) 00:00: - [facility] Pseudoeph-B Pseudoeph-B 2021-0 No Pseudoeph- romphen-DM romphen-DM 6-02 Bromphen-D 30-2-10 302-10 00:00: M 30-2-10 MG/5ML MG/5ML 00 MG/5ML traMADol traMADol 2-0 No 1{table traMADol HCl 50 MG HCl 50 MG 6-02 t_as_ne HCl 50 MG 00:00: eded} 00 Kenalog Kenalog 2-0 No 40mg Common (Triamcinol (Triamcinol 6-02 S pirit one) one) 00:00: - [facility] Bupivicaine Bupivicaine 2021-0 No 2.5mg [facility] [place] 08-22 [facility] 00:00: - [facility] Pseudoeph-B Pseudoeph-B 2021-0 No Pseudoeph- romphen-DM romphen-DM 6- Bromphen-D 30-2-10 30-2-10 00:00: M 30-2-10 MG/5ML MG/5ML 00 MG/5ML traMADol traMADol 2021-0 No 1{table traMADol HCl 50 MG HCl 50 MG - t_as_ne HCl 50 MG 00:00: eded} 00 Kenalog Kenalog 2021-0 No 40mg Common (Triamcinol (Triamcinol 08-22 S pirit one) one) 00:00: - [facility] Bupivicaine Bupivicaine 2021-0 No 2.5mg [facility] [place] 08-22 [facility] 00:00: - [facility] Pseudoeph-B Pseudoeph-B 2021-0 No Pseudoeph- romphen-DM romphen-DM - Bromphen-D 30-2-10 302-10 00:00: M 30-2-10 MG/5ML MG/5ML 00 MG/5ML traMADol traMADol 2021-0 No 1{table traMADol HCl 50 MG HCl 50 MG - t_as_ne HCl 50 MG 00:00: eded} 00 Kenalog Kenalog 2021-0 No 40mg Common (Triamcinol (Triamcinol 08-22 S pirit one) one) 00:00: - [facility] Bupivicaine Bupivicaine 2021-0 No 2.5mg [facility] [place] 08-22 [facility] 00:00: - [facility] [facility] Pseudoeph-B Pseudoeph-B 2021-0 No Pseudoeph- romphen-DM romphen-DM 6-02 Bromphen-D 30-2-10 30-2-10 00:00: M 30-2-10 MG/5ML MG/5ML 00 MG/5ML traMADol traMADol 2021-0 No 1{table traMADol HCl 50 MG HCl 50 MG 6-02 t_as_ne HCl 50 MG 00:00: eded} 00 Kenalog Kenalog 2021-0 No 40mg [facility] (Triamcinol (Triamcinol - S pirit one) one) 00:00: - [facility] 00 [facility] Bupivicaine Bupivicaine 2021-0 No 2.5mg [place] 08-22 Spirit 00:00: - [facility] 00 [facility] Pseudoeph-B Pseudoeph-B 2021-0 No Pseudoeph- romphen-DM romphen-DM 6- Bromphen-D 30-2-10 30-2-10 00:00: M 30-2-10 MG/5ML MG/5ML 00 MG/5ML traMADol traMADol 2021-0 No 1{table traMADol HCl 50 MG HCl 50 MG - t_as_ne HCl 50 MG 00:00: eded} 00 Ken[place] Kenalog 2021-0 No 40mg [facility] (Triamcinol (Triamcinol - S pirit one) one) 00:00: - [facility] 00 [facility] Bupivicaine Bupivicaine 2021-0 No 2.5mg Common [place] 08-22 Spirit 00:00: - [facility] 00 [facility] Pseudoeph-B Pseudoeph-B 2021-0 No Pseudoeph- romphen-DM romphen-DM -02 Bromphen-D 30-2-10 30-2-10 00:00: M 30-2-10 MG/5ML MG/5ML 00 MG/5ML traMADol traMADol 2021-0 No 1{table traMADol HCl 50 MG HCl 50 MG - t_as_ne HCl 50 MG 00:00: eded} 00 [place] Kenalog 2-0 No 40mg [facility] (Triamcinol (Triamcinol -02 S pirit one) one) 00:00: - [facility] 00 [facility] Bupivicaine Bupivicaine 2-0 No 2.5mg Common [place] 08-22 Spirit 00:00: - [facility] traMADol traMADol 2021-0 No 1{table traMADol HCl 50 MG HCl 50 MG - t_as_ne HCl 50 MG 00:00: eded} 00 Pseudoeph-B Pseudoeph-B 2021-0 No Pseudoeph- romphen-DM romphen-DM 6- Bromphen-D 30-2-10 30-2-10 00:00: M 30-2-10 MG/5ML MG/5ML 00 MG/5ML traMADol traMADol 2-0 No 1{table traMADol HCl 50 MG HCl 50 MG 6- t_as_ne HCl 50 MG 00:00: eded} 00 Ken[place] Kenalog 2-0 No 40mg [facility] (Triamcinol (Triamcinol 6-02 S pirit one) one) 00:00: - [facility] 00 [facility] Bupivicaine Bupivicaine 2021-0 No 2.5mg Common [place] - Spirit 00:00: - [facility] 00 [facility] Pseudoeph-B Pseudoeph-B 2021-0 No Pseudoeph- romphen-DM romphen-DM 6- Bromphen-D 30-2-10 30-2-10 00:00: M 30-2-10 MG/5ML MG/5ML 00 MG/5ML Kenalog Kenalog 2-0 No 40mg [facility] (Triamcinol (Triamcinol 6-02 S pirit one) one) 00:00: - [facility] 00 [facility] Kenalog Kenalog 2-0 No 40mg [facility] (Triamcinol (Triamcinol 6-02 S pirit one) one) 00:00: - [facility] Bupivicaine Bupivicaine 2-0 No 2.5mg Common [place] 6-02 Spirit 00:00: - [facility] 00 [facility] Kenalog Kenalog 2-0 No 40mg [facility] (Triamcinol (Triamcinol 6-02 S pirit one) one) 00:00: - [facility] 00 [facility] Bupivicaine Bupivicaine 2-0 No 2.5mg Common [place] 6-02 Spirit 00:00: - [facility] Kenalog Kenalog 2-0 No 40mg [facility] (Triamcinol (Triamcinol 6-02 S pirit one) one) 00:00: - [facility] 00 [facility] Bupivicaine Bupivicaine 2-0 No 2.5mg Common [place] 6- Spirit 00:00: - [facility] 00 [facility] Bupivicaine Bupivicaine 2-0 No 2.5mg Common [place] 6-02 Spirit 00:00: - [facility] 00 [facility] Kenalog Kenalog 2-0 No 40mg [facility] (Triamcinol (Triamcinol 6-02 S pirit one) one) 00:00: - [facility] 00 [facility] Bupivicaine Bupivicaine 2-0 No 2.5mg Common [place] 6- Spirit 00:00: - [facility] 00 [facility] Kenalog Kenalog 2-0 No 40mg [facility] (Triamcinol (Triamcinol 6-02 S pirit one) one) 00:00: - [facility] 00 [facility] Bupivicaine Bupivicaine 2-0 No 2.5mg Common [place] 6- Spirit 00:00: - [facility] 00 [facility] Kenalog Kenalog 2-0 No 40mg [facility] (Triamcinol (Triamcinol 6-02 S pirit one) one) 00:00: - [facility] 00 [facility] Bupivicaine Bupivicaine 2-0 No 2.5mg Common [place] 6- Spirit 00:00: - [facility] 00 [facility] Kenalog Kenalog 2-0 No 40mg [facility] (Triamcinol (Triamcinol 6-02 S pirit one) one) 00:00: - [facility] 00 [facility] Bupivicaine Bupivicaine 2-0 No 2.5mg Common [place] 6-02 Spirit 00:00: - [facility] 00 [facility] Kenalog Kenalog 2-0 No 40mg [facility] (Triamcinol (Triamcinol 6-02 S pirit one) one) 00:00: - [facility] 00 [facility] Bupivicaine Bupivicaine 2-0 No 2.5mg [facility] [place] 6-02 Spirit 00:00: - [facility] 00 [facility] Kenalog Kenalog 2022-0 No 40mg [facility] (Triamcinol (Triamcinol 6-02 S pirit one) one) 00:00: - [facility] 00 [facility] Bupivicaine Bupivicaine 2021-0 No 2.5mg Common [place] - Spirit 00:00: - [facility] 00 [facility] Kenalog Kenalog 2021-0 No 40mg [facility] (Triamcinol (Triamcinol 6-02 S pirit one) one) 00:00: - [facility] 00 [facility] Bupivicaine Bupivicaine 2021-0 No 2.5mg [facility] [place] 08-22 Spirit 00:00: - [facility] 00 [facility] Renzoalog Kenalog 2021-0 No 40mg [facility] (Triamcinol (Triamcinol 6-02 S pirit one) one) 00:00: - [facility] 00 [facility] Bupivicaine Bupivicaine 2021-0 No 2.5mg [facility] [place] 08-22 Spirit 00:00: - [facility] 00 [facility] Kenalog Kenalog 2021-0 No 40mg [facility] (Triamcinol (Triamcinol 6-02 S pirit one) one) 00:00: - [facility] 00 [facility] Bupivicaine Bupivicaine 2021-0 No 2.5mg [facility] [place] 08-22 Spirit 00:00: - [facility] 00 [facility] traMADol traMADol 2021-0 No 1{table traMADol HCl 50 MG HCl 50 MG 08-22 t_as_ne HCl 50 MG 00:00: eded} 00 Renzoalog Kenalog 2021-0 No 40mg [facility] (Triamcinol (Triamcinol 6-02 S pirit one) one) 00:00: - [facility] 00 [facility] Pseudoeph-B Pseudoeph-B 2021-0 No Pseudoeph- romphen-DM romphen-DM 08-22 Bromphen-D 30-2-10 30-2-10 00:00: M 30-2-10 MG/5ML MG/5ML 00 MG/5ML Bupivicaine Bupivicaine 2-0 No 2.5mg [facility] [place] 08-22 Spirit 00:00: - [facility] 00 [facility] Kenalog Kenalog 2021-0 No 40mg [facility] (Triamcinol (Triamcinol 6-02 S pirit one) one) 00:00: - [facility] 00 [facility] Bupivicaine Bupivicaine 2021-0 No 2.5mg Common [place] 08-22 Spirit 00:00: - [facility] 00 [facility] traMADol traMADol 2021-0 No 1{table traMADol HCl 50 MG HCl 50 MG 6-02 t_as_ne HCl 50 MG 00:00: eded} 00 Pseudoeph-B Pseudoeph-B 2021-0 No Pseudoeph- romphen-DM romphen-DM 6- Bromphen-D 30-2-10 302-10 00:00: M 30-2-10 MG/5ML MG/5ML 00 MG/5ML Kenalog Kenalog 2021-0 No 40mg [facility] (Triamcinol (Triamcinol 6-02 S pirit one) one) 00:00: - [facility] Bupivicaine Bupivicaine 2021-0 No 2.5mg Common [place] 08-22 Spirit 00:00: - [facility] 00 [facility] traMADol traMADol 2021-0 No 1{table traMADol HCl 50 MG HCl 50 MG -02 t_as_ne HCl 50 MG 00:00: eded} 00 Pseudoeph-B Pseudoeph-B 2021-0 No Pseudoeph- romphen-DM romphen-DM 6-02 Bromphen-D 30-2-10 302-10 00:00: M 30-2-10 MG/5ML MG/5ML 00 MG/5ML Kenalog Kenalog 2021-0 No 40mg [facility] (Triamcinol (Triamcinol 6-02 S pirit one) one) 00:00: - [facility] Bupivicaine Bupivicaine 2021-0 No 2.5mg Common [place] 08-22 Spirit 00:00: - [facility] Pseudoeph-B Pseudoeph-B 2021-0 No Pseudoeph- [...] MG 6-02 MG 00:00: 00 Kenalog Kenalog 2021-0 No 40mg [facility] (Triamcinol (Triamcinol 6-02 S pirit one) one) 00:00: - [facility] Bupivicaine Bupivicaine 2021-0 No 2.5mg Common [place] 08-22 Spirit 00:00: - [facility] Ambien 10 Ambien 10 2021-0 [...] Pseudoeph-B Pseudoeph-B 2-0 No Pseudoeph- romphen-DM romphen-DM -02 Bromphen-D 30-2-10 30-2-10 00:00: M 30-2-10 MG/5ML MG/5ML 00 MG/5ML Kenalog Kenalog 2-0 No 40mg [facility] (Triamcinol (Triamcinol 6-02 S pirit one) one) 00:00: - [facility] Bupivicaine Bupivicaine 2021-0 No 2.5mg Common [place] 08-22 Spirit 00:00: - [facility] 00 [facility] Lisinopril- Lisinopril- No 1{table QD Lisinopril hydroCHLORO hydroCHLORO 02 t} -hydroCHLO thiazide thiazide 00:00: ROthiazide 10-12.5 MG 10-12.5 MG 00 10-12.5 MG traMADol traMADol No 1{table traMADol HCl 50 MG HCl 50 MG 02 t_as_ne HCl 50 MG 00:00: eded} 00 Pseudoeph-B Pseudoeph-B No Pseudoeph- romphen-DM romphen-DM 08-22 Bromphen-D 30-2-10 30-2-10 00:00: M 30-2-10 MG/5ML MG/5ML 00 MG/5ML Ambien 10 Ambien 10 No QD Ambien 10 MG MG 6-02 MG 00:00: 00 Kenalog Kenalog No 40mg [facility] (Triamcinol (Triamcinol 08-22 S pirit one) one) 00:00: - [facility] 00 [facility] Bupivicaine Bupivicaine No 2.5mg Common [place] 08-22 Spirit 00:00: - [facility] 00 [facility] traMADoL Yes 1 tablet [facility] (ULTRAM) 50 02 as needed [facility] mg tablet 00:00: Medical 00 [place] traMADoL 0 2021- No [address] [facility] (ULTRAM) 50 6-02 12-28 as needed [facility]ja [facility] mg tablet 00:00: 00:00 Medical 00 :00 [place] traMADoL 2021-0 2021- No [address] [facility] (ULTRAM) 50 6-02 12-28 as needed Nadja kes mg tablet 00:00: 00:00 Medical 00 :00 [place] letrozole Yes 2.5mg Take 2.5 Uni vers 2.5 mg 6-01 mg by ity of tablet 10:12: mouth [place] 31 daily Medical Branch pregabalin 0 Yes 75mg Take 75 mg U nivers 75 mg 6-01 by mouth 3 ity of capsule 10:12: (three) [place] 31 times Medical daily. Branch letrozole 2022-0 Yes 2.5mg Take 2.5 Uni vers 2.5 mg 6-01 mg by ity of tablet 10:12: mouth [place] 31 daily Medical Branch pregabalin 2022-0 Yes 75mg Take 75 mg U nivers 75 mg 6-01 by mouth 3 ity of capsule 10:12: (three) [place] 31 times Medical daily. Branch letrozole 2022-0 Yes 2.5mg Take 2.5 Uni vers 2.5 mg 6-01 mg by ity of tablet 10:12: mouth [place] 31 daily Medical Branch pregabalin 2022-0 Yes 75mg Take 75 mg U nivers 75 mg 6-01 by mouth 3 ity of capsule 10:12: (three) [place] 31 times Medical daily. Branch letrozole 2022-0 Yes 2.5mg Take 2.5 Uni vers 2.5 mg 6-01 mg by ity of tablet 10:12: mouth [place] 31 daily Medical Branch pregabalin 2022-0 Yes 75mg Take 75 mg U nivers 75 mg 6-01 by mouth 3 ity of capsule 10:12: (three) [place] 31 times Medical daily. Branch letrozole 2022-0 Yes 2.5mg Take 2.5 Uni vers 2.5 mg 6-01 mg by ity of tablet 10:12: mouth [place] 31 daily Medical Branch pregabalin 2022-0 Yes 75mg Take 75 mg U nivers 75 mg 6-01 by mouth 3 ity of capsule 10:12: (three) [place] 31 times Medical daily. Branch letrozole 2022-0 Yes 2.5mg Take 2.5 Uni vers 2.5 mg 6-01 mg by ity of tablet 10:12: mouth [place] 31 daily Medical Branch pregabalin 2022-0 Yes 75mg Take 75 mg U nivers 75 mg 6-01 by mouth 3 ity of capsule 10:12: (three) [place] 31 times Medical daily. Branch letrozole 2022-0 Yes 2.5mg Take 2.5 Uni vers 2.5 mg 6-01 mg by ity of tablet 10:12: mouth [place] 31 daily Medical Branch pregabalin 2022-0 Yes 75mg Take 75 mg U nivers 75 mg 6-01 by mouth 3 ity of capsule 10:12: (three) [place] 31 times Medical daily. Branch letrozole 2022-0 Yes 2.5mg Take 2.5 Uni vers 2.5 mg 6-01 mg by ity of tablet 10:12: [place] [address] daily Medical Branch pregabalin 2022-0 Yes 75mg Take 75 mg U nivers 75 mg 6-01 by mouth 3 ity of capsule 10:12: (three) [place] 31 times Medical daily. Branch letrozole 2022-0 Yes 2.5mg Take 2.5 Uni vers 2.5 mg 6-01 mg by ity of tablet 10:12: [place] [address] daily Medical Branch pregabalin 2022-0 Yes 75mg Take 75 mg U nivers 75 mg 6-01 by mouth 3 ity of capsule 10:12: (three) [place] 31 times Medical daily. Branch letrozole 2022-0 Yes 2.5mg Take 2.5 Uni vers 2.5 mg 6-01 mg by ity of tablet 10:12: [place] [address] daily Medical Branch letrozole 2022-0 Yes 2.5mg Take 2.5 Uni vers 2.5 mg 6-01 mg by ity of tablet 10:12: [place] [address] daily Medical Branch letrozole 2022-0 Yes 2.5mg Take 2.5 Uni vers 2.5 mg 6-01 mg by ity of tablet 10:12: [place] [address] daily Medical Branch letrozole 2022-0 Yes 2.5mg Take 2.5 Uni vers 2.5 mg 6-01 mg by ity of tablet 10:12: [place] [address] daily Medical Branch letrozole 2022-0 Yes 2.5mg Take 2.5 Uni vers 2.5 mg 6-01 mg by ity of tablet 10:12: [place] [address] daily Medical Branch letrozole 2022-0 Yes 2.5mg Take 2.5 Uni vers 2.5 mg 6-01 mg by ity of tablet 10:12: [place] [address] daily Medical Branch letrozole 2022-0 Yes 2.5mg Take 2.5 Uni vers 2.5 mg 6-01 mg by ity of tablet 10:12: [place] [address] daily Medical Branch letrozole 2022-0 Yes 2.5mg Take 2.5 Uni vers 2.5 mg 6-01 mg by ity of tablet 10:12: [place] [address] daily Medical Branch letrozole 2022-0 Yes 2.5mg Take 2.5 Uni vers 2.5 mg 6-01 mg by ity of tablet 10:12: [place] [address] daily Medical Branch letrozole 2022-0 Yes 2.5mg Take 2.5 Uni vers 2.5 mg 6-01 mg by ity of tablet 10:12: [place] [address] daily Medical Branch letrozole 2022-0 Yes 2.5mg Take 2.5 Uni vers 2.5 mg 6-01 mg by ity of tablet 10:12: [place] [address] daily Medical Branch letrozole 2022-0 Yes 2.5mg Take 2.5 Uni vers 2.5 mg 6-01 mg by ity of tablet 10:12: [place] [address] daily Medical Branch letrozole 2022-0 Yes 2.5mg Take 2.5 Uni vers 2.5 mg 6-01 mg by ity of tablet 10:12: [place] [address] daily Medical Branch letrozole 2022-0 Yes 2.5mg Take 2.5 Uni vers 2.5 mg 6-01 mg by ity of tablet 10:12: [place] [address] daily Medical Branch letrozole 2022-0 Yes 2.5mg Take 2.5 Uni vers 2.5 mg 6-01 mg by ity of tablet 10:12: [place] [address] daily Medical Branch letrozole 2022-0 Yes 2.5mg Take 2.5 Uni vers 2.5 mg 6-01 mg by ity of tablet 10:12: [place] [address] daily Medical Branch letrozole 2022-0 Yes 2.5mg Take 2.5 Uni vers 2.5 mg 6-01 mg by ity of tablet 10:12: [place] [address] daily Medical Branch letrozole 2022-0 Yes 2.5mg Take 2.5 Uni vers 2.5 mg 6-01 mg by ity of tablet 10:12: [place] [address] daily Medical Branch letrozole 2022-0 Yes 2.5mg Take 2.5 Uni vers 2.5 mg 6-01 mg by ity of tablet 10:12: [place] [address] daily Medical Branch letrozole 2022-0 Yes 2.5mg Take 2.5 Uni vers 2.5 mg 6-01 mg by ity of tablet 10:12: [place] [address] daily Medical Branch letrozole 2022-0 Yes 2.5mg Take 2.5 Uni vers 2.5 mg 6-01 mg by ity of tablet 10:12: [place] [address] daily Medical Branch letrozole 2022-0 Yes 2.5mg Take 2.5 Uni vers 2.5 mg 6-01 mg by ity of tablet 10:12: [place] [address] daily Medical Branch letrozole 2022-0 Yes 2.5mg Take 2.5 Uni vers 2.5 mg 6-01 mg by ity of tablet 10:12: [place] [address] daily Medical Branch letrozole 2022-0 Yes 2.5mg Take 2.5 Uni vers 2.5 mg 6-01 mg by ity of tablet 10:12: [place] [address] daily Medical Branch letrozole 2022-0 Yes 2.5mg Take 2.5 Uni vers 2.5 mg 6-01 mg by ity of tablet 10:12: [place] [address] daily Medical Branch letrozole 2022-0 Yes 2.5mg Take 2.5 Uni vers 2.5 mg 6-01 mg by ity of tablet 10:12: [place] [address] daily Medical Branch letrozole 2022-0 Yes 2.5mg Take 2.5 Uni vers 2.5 mg 6-01 mg by ity of tablet 10:12: [place] [address] daily Medical Branch letrozole 2022-0 Yes 2.5mg Take 2.5 Uni vers 2.5 mg 6-01 mg by ity of tablet 10:12: [place] [address] daily Medical Branch letrozole 2022-0 Yes 2.5mg Take 2.5 Uni vers 2.5 mg 6-01 mg by ity of tablet 10:12: [place] [address] daily Medical Branch letrozole 2022-0 Yes 2.5mg Take 2.5 Uni vers 2.5 mg 6-01 mg by ity of tablet 10:12: [place] [address] daily Medical Branch letrozole 2022-0 Yes 2.5mg Take 2.5 Uni vers 2.5 mg 6-01 mg by ity of tablet 10:12: [place] [address] daily Medical Branch letrozole 2022-0 Yes 2.5mg Take 2.5 Uni vers 2.5 mg 6-01 mg by ity of tablet 10:12: [place] [address] daily Medical Branch letrozole 2022-0 Yes 2.5mg Take 2.5 Uni vers 2.5 mg 6-01 mg by ity of tablet 10:12: [place] [address] daily Medical Branch letrozole 2022-0 Yes 2.5mg Take 2.5 Uni vers 2.5 mg 6-01 mg by ity of tablet 10:12: [place] [address] daily Medical Branch letrozole 2022-0 Yes 2.5mg Take 2.5 Uni vers 2.5 mg 6-01 mg by ity of tablet 10:12: [place] [address] daily Medical Branch letrozole 2022-0 Yes 2.5mg Take 2.5 Uni vers 2.5 mg 6-01 mg by ity of tablet 10:12: [place] [address] daily Medical Branch letrozole 2022-0 Yes 2.5mg Take 2.5 Uni vers 2.5 mg 6-01 mg by ity of tablet 10:12: [place] [address] daily Medical Branch letrozole 2022-0 Yes 2.5mg Take 2.5 Uni vers 2.5 mg 6-01 mg by ity of tablet 10:12: [place] [address] daily Medical Branch letrozole 2022-0 Yes 2.5mg Take 2.5 Uni vers 2.5 mg 6-01 mg by ity of tablet 10:12: [place] [address] daily Medical Branch zolpidem 2022-0 Yes 5mg [...] as needed Medical for Branch Insomnia. hydrOXYzine 2022-0 Yes [id number] 25mg Take 1 [facility] (VISTARIL) 5-21 capsule by ity of 25 mg 00:00: mouth 3 [place] capsule 00 (three) Medical times Branch daily as needed for Itching. mupirocin 2 2-0 Yes [id number] Apply to [facility] % ointment 5-21 area(s) 3 ity of 00:00: (three) [place] 00 times Medical daily. Branch hydrOXYzine 2022-0 Yes [id number] 25mg Take 1 [facility] (VISTARIL) 5-21 capsule by ity of 25 mg 00:00: mouth 3 [place] capsule 00 (three) Medical times Branch daily as needed for Itching. mupirocin 2 2-0 Yes [id number] Apply to [facility] % ointment 5-21 area(s) 3 ity of 00:00: (three) [place] 00 times Medical daily. Branch hydrOXYzine 2022-0 Yes [id number] 25mg Take 1 [facility] (VISTARIL) 5-21 capsule by ity of 25 mg 00:00: mouth 3 [place] capsule 00 (three) Medical times Branch daily as needed for Itching. mupirocin 2 2-0 Yes [id number] Apply to Univers % ointment 5-21 area(s) 3 ity of 00:00: (three) [place] 00 times Medical daily. Branch hydrOXYzine 2-0 Yes [id number] 25mg Take 1 [facility] (VISTARIL) 5-21 capsule by ity of 25 mg 00:00: mouth 3 [place] capsule 00 (three) Medical times Branch daily as needed for Itching. mupirocin 2 2021-0 Yes [id number] Apply to Univers % ointment 5-21 area(s) 3 ity of 00:00: (three) [place] 00 times Medical daily. Branch hydrOXYzine 2-0 Yes [id number] 25mg Take 1 [facility] (VISTARIL) 5-21 capsule by ity of 25 mg 00:00: mouth 3 [place] capsule 00 (three) Medical times Branch daily as needed for Itching. mupirocin 2 2021-0 Yes [id number] Apply to Univers % ointment 5-21 area(s) 3 ity of 00:00: (three) [place] 00 times Medical daily. Branch hydrOXYzine 2021-0 Yes [id number] 25mg Take 1 [facility] (VISTARIL) 5-21 capsule by ity of 25 mg 00:00: mouth 3 [place] capsule 00 (three) Medical times Branch daily as needed for Itching. mupirocin 2 2-0 Yes [id number] Apply to [facility] % ointment 5-21 area(s) 3 ity of 00:00: (three) [place] 00 times Medical daily. Branch hydrOXYzine 2-0 Yes [id number] 25mg Take 1 [facility] (VISTARIL) 5-21 capsule by ity of 25 mg 00:00: mouth 3 [place] capsule 00 (three) Medical times Branch daily as needed for Itching. mupirocin 2 2-0 Yes [id number] Apply to [facility] % ointment 5-21 area(s) 3 ity of 00:00: (three) [place] 00 times Medical daily. Branch hydrOXYzine 2022-0 Yes [id number] 25mg Take 1 [facility] (VISTARIL) 5-21 capsule by ity of 25 mg 00:00: mouth 3 [place] capsule 00 (three) Medical times Branch daily as needed for Itching. mupirocin 2 2021-0 Yes [id number] Apply to Univers % ointment 5-21 area(s) 3 ity of 00:00: (three) [place] 00 times Medical daily. Branch hydrOXYzine 2021-0 Yes [id number] 25mg Take 1 [facility] (VISTARIL) 5-21 capsule by ity of 25 mg 00:00: mouth 3 [place] capsule 00 (three) Medical times Branch daily as needed for Itching. mupirocin 2 2021-0 Yes [id number] Apply to [facility] % ointment 5-21 area(s) 3 ity of 00:00: (three) [place] 00 times Medical daily. Branch hydrOXYzine 2021-0 Yes [id number] 25mg Take 1 [facility] (VISTARIL) 5-21 capsule by ity of 25 mg 00:00: mouth 3 [place] capsule 00 (three) Medical times Branch daily as needed for Itching. mupirocin 2 2021-0 Yes [id number] Apply to [facility] % ointment 5-21 area(s) 3 ity of 00:00: (three) [place] 00 times Medical daily. Branch hydrOXYzine 2021-0 Yes [id number] 25mg Take 1 [facility] (VISTARIL) 5-21 capsule by ity of 25 mg 00:00: mouth 3 [place] capsule 00 (three) Medical times Branch daily as needed for Itching. mupirocin 2 2021-0 Yes [id number] Apply to [facility] % ointment 5-21 area(s) 3 ity of 00:00: (three) [place] 00 times Medical daily. Branch hydrOXYzine 2-0 2- No [id number] 25mg Take 1 [facility] (VISTARIL) 5-21 10-05 capsule by it y of 25 mg 00:00: 00:00 mouth 3 [place] capsule 00 :00 (three) Medical times Branch daily as needed for Itching. mupirocin 2 2021-0 2- No [id number] Apply to [facility] % ointment 5-21 10-05 area(s) 3 ity of 00:00: 00:00 (three) [place] 00 :00 times Medical daily. Branch hydrOXYzine 2022-0 2022- No [id number] 25mg Take 1 [facility] (VISTARIL) 5-21 05 capsule by it y of 25 mg 00:00: 00:00 mouth 3 [place] capsule 00 :00 (three) Medical times Branch daily as needed for Itching. mupirocin 2 2021- No [id number] Apply to Univers % ointment 5-05 area(s) 3 ity of 00:00: 00:00 (three) [place] 00 :00 times Medical daily. Branch hydrOXYzine 2021- No [id number] 25mg Take 1 [facility] (VISTARIL) 5-21 12-25 capsule by it y of 25 mg 00:00: 00:00 mouth 3 [place] capsule 00 :00 (three) Medical times Branch daily as needed for Itching. mupirocin 2 2021- No [id number] Apply to [facility] % ointment -05 area(s) 3 ity of 00:00: 00:00 (three) [place] 00 :00 times Medical daily. Branch Ambien 10 Ambien 10 No QD Ambien [...] [place] tablet 00 EVERY 8 MD HOURS [facility] divalproex 2021-0 2022- No TAKE 1 Univ ers (DEPAKOTE) 5- 05-15 TABLET BY ity of [address] 00:00: 00:00 MOUTH [place] tablet 00 :00 EVERY 8 MD HOURS [facility] divalproex 2021-0 2022- No TAKE 1 Univ ers (DEPAKOTE) - 05-15 TABLET BY ity of [address] 00:00: 00:00 MOUTH [place] tablet 00 :00 EVERY 8 MD HOURS [facility] divalproex 2021-0 Yes [id number] 125mg Take 1 [facility] 125 mg EC 4-29 tablet by ity o f tablet 00:00: mouth [place] 00 every 8 Medical (eight) Branch hours. divalproex 202-0 Yes [id number] 125mg Take 1 [facility] 125 mg EC 4-29 tablet by ity o f tablet 00:00: mouth [place] 00 every 8 Medical (eight) Branch hours. divalproex 2021-0 Yes [id number] 125mg Take 1 [facility] 125 mg EC 4-29 tablet by ity o f tablet 00:00: mouth [place] 00 every 8 Medical (eight) Branch hours. divalproex 2021-0 Yes [id number] 125mg Take 1 [facility] 125 mg EC 4-29 tablet by ity o f tablet 00:00: mouth [place] 00 every 8 Medical (eight) Branch hours. divalproex 2-0 Yes [id number] 125mg Take 1 [facility] 125 mg EC 4-29 tablet by ity o f tablet 00:00: mouth [place] 00 every 8 Medical (eight) Branch hours. divalproex 2022-0 Yes [id number] 125mg Take 1 [facility] 125 mg EC 4-29 tablet by ity o f tablet 00:00: mouth [place] 00 every 8 Medical (eight) Branch hours. divalproex 2022-0 Yes [id number] 125mg Take 1 [facility] 125 mg EC 4-29 tablet by ity o f tablet 00:00: mouth [place] 00 every 8 Medical (eight) Branch hours. divalproex 2022-0 Yes [id number] 125mg Take 1 [facility] 125 mg EC 4-29 tablet by ity o f tablet 00:00: mouth [place] 00 every 8 Medical (eight) Branch hours. divalproex 2022-0 Yes [id number] 125mg Take 1 [facility] 125 mg EC 4-29 tablet by ity o f tablet 00:00: mouth [place] 00 every 8 Medical (eight) Branch hours. divalproex 2022-0 Yes [id number] 125mg Take 1 [facility] 125 mg EC 4-29 tablet by ity o f tablet 00:00: mouth [place] 00 every 8 Medical (eight) Branch hours. divalproex 2022-0 Yes [id number] 125mg Take 1 [facility] 125 mg EC 4-29 tablet by ity o f tablet 00:00: mouth [place] 00 every 8 Medical (eight) Branch hours. divalproex 2022-0 Yes [id number] 125mg Take 1 [facility] 125 mg EC 4-29 tablet by ity o f tablet 00:00: mouth [place] 00 every 8 Medical (eight) Branch hours. divalproex 2022-0 Yes [id number] 125mg Take 1 [facility] 125 mg EC 4-29 tablet by ity o f tablet 00:00: mouth [place] 00 every 8 Medical (eight) Branch hours. divalproex 2022-0 Yes [id number] 125mg Take 1 [facility] 125 mg EC 4-29 tablet by ity o f tablet 00:00: mouth [place] 00 every 8 [facility] (eight) [facility] hours. divalproex 2022-0 Yes [id number] 125mg Take 1 [facility] 125 mg EC 4-29 tablet by [facility] o f tablet 00:00: mouth [place] 00 every 8 [facility] (eight) [facility] hours. divalproex 2022-0 Yes [id number] 125mg Take 1 [facility] 125 mg EC 4-29 tablet by [facility] o f tablet 00:00: mouth [place] 00 every 8 [facility] (eight) [facility] hours. divalproex 2022-0 Yes [id number] 125mg Take 1 [facility] 125 mg EC 4-29 tablet by [facility] o f tablet 00:00: mouth [place] 00 every 8 [facility] (eight) [facility] hours. divalproex 2022-0 Yes [id number] 125mg Take 1 [facility] 125 mg EC 4-29 tablet by [facility] o f tablet 00:00: mouth [place] 00 every 8 [facility] (eight) [facility] hours. divalproex 2022-0 Yes [id number] 125mg Take 1 [facility] 125 mg EC 4-29 tablet by [facility] o f tablet 00:00: mouth [place] 00 every 8 [facility] (eight) [facility] hours. divalproex 2022-0 Yes [id number] 125mg Take 1 [facility] 125 mg EC 4-29 tablet by ity o f tablet 00:00: mouth [place] 00 every 8 Medical (eight) Branch hours. divalproex 2022-0 Yes [id number] 125mg Take 1 [facility] 125 mg EC 4-29 tablet by ity o f tablet 00:00: mouth [place] 00 every 8 Medical (eight) Branch hours. divalproex 2022-0 Yes [id number] 125mg Take 1 [facility] 125 mg EC 4-29 tablet by ity o f tablet 00:00: mouth [place] 00 every 8 Medical (eight) Branch hours. divalproex 2022-0 Yes [id number] 125mg Take 1 [facility] 125 mg EC 4-29 tablet by ity o f tablet 00:00: mouth [place] 00 every 8 Medical (eight) Branch hours. divalproex 2022-0 Yes [id number] 125mg Take 1 [facility] 125 mg EC 4-29 tablet by ity o f tablet 00:00: mouth [place] 00 every 8 Medical (eight) Branch hours. divalproex 2022-0 Yes [id number] 125mg Take 1 [facility] 125 mg EC 4-29 tablet by ity o f tablet 00:00: mouth [place] 00 every 8 Medical (eight) Branch hours. divalproex 2022-0 Yes [id number] 125mg Take 1 [facility] 125 mg EC 4-29 tablet by ity o f tablet 00:00: mouth [place] 00 every 8 Medical (eight) Branch hours. divalproex 2022-0 Yes [id number] 125mg Take 1 [facility] 125 mg EC 4-29 tablet by ity o f tablet 00:00: mouth [place] 00 every 8 Medical (eight) Branch hours. divalproex 2022-0 Yes [id number] 125mg Take 1 [facility] 125 mg EC 4-29 tablet by ity o f tablet 00:00: mouth [place] 00 every 8 Medical (eight) Branch hours. divalproex 2022-0 Yes [id number] 125mg Take 1 [facility] 125 mg EC 4-29 tablet by ity o f tablet 00:00: mouth [place] 00 every 8 Medical (eight) Branch hours. divalproex 2022-0 Yes [id number] 125mg Take 1 [facility] 125 mg EC 4-29 tablet by ity o f tablet 00:00: mouth [place] 00 every 8 Medical (eight) Branch hours. divalproex 2022-0 Yes [id number] 125mg Take 1 [facility] 125 mg EC 4-29 tablet by ity o f tablet 00:00: mouth [place] 00 every 8 Medical (eight) Branch hours. divalproex 2022-0 Yes [id number] 125mg Take 1 [facility] 125 mg EC 4-29 tablet by ity o f tablet 00:00: mouth [place] 00 every 8 Medical (eight) Branch hours. divalproex 2022-0 Yes [id number] 125mg Take 1 [facility] 125 mg EC 4-29 tablet by ity o f tablet 00:00: mouth [place] 00 every 8 Medical (eight) Branch hours. divalproex 2022-0 Yes [id number] 125mg Take 1 [facility] 125 mg EC 4-29 tablet by ity o f tablet 00:00: mouth [place] 00 every 8 Medical (eight) Branch hours. divalproex 2022-0 Yes [id number] 125mg Take 1 [facility] 125 mg EC 4-29 tablet by ity o f tablet 00:00: mouth [place] 00 every 8 Medical (eight) Branch hours. divalproex 2022-0 Yes [id number] 125mg Take 1 [facility] 125 mg EC 4-29 tablet by ity o f tablet 00:00: mouth [place] 00 every 8 Medical (eight) Branch hours. divalproex 2022-0 Yes [id number] 125mg Take 1 [facility] 125 mg EC 4-29 tablet by ity o f tablet 00:00: mouth [place] 00 every 8 Medical (eight) Branch hours. divalproex 2022-0 Yes [id number] 125mg Take 1 [facility] 125 mg EC 4-29 tablet by ity o f tablet 00:00: mouth [place] 00 every 8 Medical (eight) Branch hours. divalproex 2022-0 Yes [id number] 125mg Take 1 [facility] 125 mg EC 4-29 tablet by ity o f tablet 00:00: mouth [place] 00 every 8 Medical (eight) Branch hours. divalproex 2022-0 Yes [id number] 125mg Take 1 [facility] 125 mg EC 4-29 tablet by ity o f tablet 00:00: mouth [place] 00 every 8 Medical (eight) Branch hours. divalproex 2022-0 Yes [id number] 125mg Take 1 [facility] 125 mg EC 4-29 tablet by ity o f tablet 00:00: mouth [place] 00 every 8 Medical (eight) Branch hours. divalproex 2021-0 Yes [id number] 125mg Take 1 [facility] 125 mg EC 4-29 tablet by ity o f tablet 00:00: mouth [place] 00 every 8 Medical (eight) Branch hours. divalproex 2021-0 Yes [id number] 125mg Take 1 [facility] 125 mg EC 4-29 tablet by ity o f tablet 00:00: mouth [place] 00 every 8 Medical (eight) Branch hours. divalproex 2021-0 Yes [id number] 125mg Take 1 [facility] 125 mg EC 4-29 tablet by ity o f tablet 00:00: mouth [place] 00 every 8 Medical (eight) Branch hours. divalproex 2021-0 Yes [id number] 125mg Take 1 [facility] 125 mg EC 4-29 tablet by ity o f tablet 00:00: mouth [place] 00 every 8 Medical (eight) Branch hours. divalproex 2022- No [id number] 125mg Take 1 [facility] 125 mg EC 4-29 11-09 tablet by ity of tablet 00:00: 00:00 mouth [place] 00 :00 every 8 Medical (eight) Branch hours. divalproex 2021-0 2022- No [id number] 125mg Take 1 [facility] 125 mg EC 4-29 11-09 tablet by ity of tablet 00:00: 00:00 mouth [place] 00 :00 every 8 Medical (eight) Branch hours. citalopram 2021- No Reactive TAKE 1 [facility] (CeleXA) 20 4-13 10-05 depression TABLET(20 ity of mg tablet 00:00: 00:00 (situationa MG) BY [place] 00 :00 l) FRED MONTEJO DAILY [facility] traMADol traMADol No 1{table traMADol HCl 50 MG HCl 50 MG 4-11 t_as_ne HCl 50 MG 00:00: eded} 00 traMADol traMADol 0 No 1{table traMADol HCl [...] t_as_ne HCl 50 MG 00:00: eded} 00 atorvastati 2021- No 20mg Take 20 mg [facility] n (LIPITOR) 30 -30 by mouth. it y of 20 [...] capsule 00:00: 00:00 polyneuropa (75 mg) by [place] 00 :00 thy mouth 3 (three) Marry [facility] a n day[facility] Ambien 10 Ambien 10 No [...] zolpidem Yes 1 tablet [facility] (AMBIEN) 10 3-28 at bedtime Nadja kes mg tablet 00:00: as needed Med ical 00 for sleep Center zolpidem Yes 1 tablet [facility] (Ambien) 10 3-28 at bedtime Nadja kes mg tablet 00:00: as needed Med ical 00 for sleep Center zolpidem Yes 10mg Take 1 [facility] (AMBIEN) 10 3-28 tablet (10 it y of mg tablet 00:00: mg) by [place] 00 mouth MD nightly as Anderso needed. n [facility] zolpidem Yes 1 tablet [facility] (AMBIEN) 10 3-28 at bedtime Nadja kes mg tablet 00:00: as needed Med ical 00 for sleep Center zolpidem Yes 10mg Take 10 mg Uni vers (AMBIEN) 10 3-28 by mouth ity [place] mg tablet 00:00[place] 00 needed. [facility] zolpidem Yes 10mg Take 1 [facility] (AMBIEN) 10 3-28 tablet (10 it y of mg tablet 00:00: mg) by [place] 00 mouth nightly as Anderso needed. n [facility] Ambien 10 Ambien 10 No QD Ambien 10 MG MG 1-21 MG 00:00: 00 Pantoprazol Pantoprazol No 1{table QD Pantoprazo e Sodium 40 e Sodium 40 1-21 t} le Sodium MG MG 00:00: 40 MG 00 Ambien 10 Ambien 10 2022-0 No QD Ambien 10 MG MG 1-21 MG 00:00: 00 Pantoprazol Pantoprazol 2021-0 No 1{table QD Pantoprazo e Sodium 40 e Sodium 40 1-21 t} le Sodium MG MG 00:00: 40 MG 00 Ambien 10 Ambien 10 2021-0 No QD Ambien 10 MG MG 1-21 MG 00:00: 00 Pantoprazol Pantoprazol 2021-0 No 1{table QD Pantoprazo e Sodium 40 e Sodium 40 1-21 t} le Sodium MG MG 00:00: 40 MG 00 Ambien 10 Ambien 10 2021-0 No QD Ambien 10 MG MG 1-21 MG 00:00: 00 Pantoprazol Pantoprazol 2021-0 No 1{table QD Pantoprazo e Sodium 40 e Sodium 40 1-21 t} le Sodium MG MG 00:00: 40 MG 00 Phentermine Phentermine 2021- No 1{capsu QD Phentermin HCl 30 MG HCl 30 MG 04-12 le} e HCl 30 00:00: 00:00 MG 00 :00 Phentermine Phentermine 2- No 1{capsu QD Phentermin HCl 30 MG HCl 30 MG 04-12 le} e HCl 30 00:00: 00:00 MG 00 :00 Phentermine Phentermine 2021- No 1{capsu QD Phentermin HCl 30 MG HCl 30 MG 04-12 le} e HCl 30 00:00: 00:00 MG 00 :00 Phentermine Phentermine 2- No 1{capsu QD Phentermin HCl 30 MG HCl 30 MG 04-12 le} e HCl 30 00:00: 00:00 MG 00 :00 Ambien 10 Ambien 10 2021-0 No QD Ambien 10 MG MG 1-11 MG 00:00: 00 pregabalin 2021-2021- No Drug-induce TAKE 1 [facility] (LYRICA) 75 1-10 03-30 d CAPSULE BY i ty of mg capsule 00:00: 00:00 polyneuropa MOUTH [place] 00 :00 thy THREE MD TIMES Anderso DAILY [facility] Phentermine Phentermine 2020-03- No 1{capsu QD Phentermin HCl 30 MG HCl 30 MG 05-15 le} e HCl 30 00:00: 00:00 MG 00 :00 Phentermine Phentermine 2020-03- No 1{capsu QD Phentermin HCl 30 MG HCl 30 MG 05-15 le} e HCl 30 00:00: 00:00 MG 00 :00 ergocalcife 2020-03- No Vitamin D [id number] Take 1 [facility] rol 05-07 deficiency, capsule ity of (Vitamin 00:00: 05:59 not (50,000 [place] D2) 50,000 00 :00 otherwise Units) by MD units specified mouth Anderso capsule every 7 [...] 50 MG 00:00: eded} 00 traMADol traMADol 2021-1 No 1{table traMADol HCl 50 MG HCl [...] MG 00:00: eded} 00 Ambien 10 Ambien 2020-03 No QD Ambien 10 MG MG 1-30 MG 00:00: 00 Ambien 10 Ambien 2020-03 No QD Ambien 10 MG MG 1-30 MG 00:00: 00 Ambien 10 Ambien 2020-03 No QD Ambien 10 MG MG 1-30 MG 00:00: 00 Ambien 10 Ambien 2020-03 No QD Ambien 10 MG MG 1-30 MG 00:00: 00 Ambien 10 Ambien 2020-03 No QD Ambien 10 MG MG [...] mg) by [place] 00 :00 l) mouth MD daily. Andazeb [facility] pregabalin 2020-03- No Drug-induce TAKE 1 [facility] (LYRICA) 75 1-10 01-10 d CAPSULE BY joe ty of mg capsule 00:00: 00:00 polyneuropa MOUTH [place] 00 :00 thy THREE MD TIMES Anderso DAILY [facility] Ambien 5 MG Ambien 5 MG 2020-03 [...] 2020-03- No 1{table HYDROcodon -Acetaminop -Acetaminop 0-15 02-25 t_as_ne e-Acetamin hen 7.5-325 hen 7.5-325 00:00: 00:00 eded} ophen MG MG 00 :00 7.5-325 MG HYDROcodone HYDROcodone 2020-03- No 1{table HYDROcodon -Acetaminop -Acetaminop 0-02-14 t_as_ne e-Acetamin hen 7.5-325 hen 7.5-325 00:00: 00:00 eded} ophen MG MG 00 :00 7.5-325 MG HYDROcodone HYDROcodone 2020-03- No 1{table HYDROcodon -Acetaminop -Acetaminop 002-14 t_as_ne e-Acetamin hen 7.5-325 hen 7.5-325 00:00: 00:00 eded} ophen MG MG 00 :00 7.5-325 MG HYDROcodone HYDROcodone 2020-03- No 1{table HYDROcodon -Acetaminop -Acetaminop 0-02-14 t_as_ne e-Acetamin hen 7.5-325 hen 7.5-325 00:00: 00:00 eded} ophen MG MG 00 :00 7.5-325 MG HYDROcodone HYDROcodone 2020-03- No 1{table HYDROcodon -Acetaminop -Acetaminop 02-14 t_as_ne e-Acetamin hen 7.5-325 hen 7.5-325 00:00: 00:00 eded} ophen MG MG 00 :00 7.5-325 MG traMADol traMADol 2020-03- No 1{table traMADol HCl 50 MG HCl 50 MG 001-03 t_as_ne HCl 50 MG 00:00: 00:00 eded} 00 :00 traMADol traMADol 2020-03- No 1{table traMADol HCl 50 MG HCl 50 MG 014 t_as_ne HCl 50 MG 00:00: 00:00 eded} 00 :00 Bupivicaine Bupivicaine 2020-03 No 2.5mg [facility] [place] [facility]05 [facility] 00:00: - [facility] 00 [facility] Kenalog Kenalog 2020-03 No 40mg Common (Triamcinol (Triamcinol 0-05 S pirit one) one) 00:00: - CHI 00 [facility] Bupivicaine Bupivicaine 2020-03 No 2.5mg [facility] [place] 0-05 Spirit 00:00: - [facility] 00 [facility] Kenalog Kenalog 2020-03 No 40mg Common (Triamcinol (Triamcinol 0-05 S pirit one) one) 00:00: - CHI 00 [facility] Bupivicaine Bupivicaine 2020-03 No 2.5mg [facility] [place] 0-05 Spirit 00:00: - [facility]I 00 [facility] Kenalog Kenalog 2020-03 No 40mg Common (Triamcinol (Triamcinol 0-05 S pirit one) one) 00:00: - CHI 00 [facility] Bupivicaine Bupivicaine 2020-03 No 2.5mg [facility] [place] 0-05 Spirit 00:00: - CHI 00 [facility] Renzoalog Kenalog 2020-03 No 40mg Common (Triamcinol (Triamcinol 0-05 S pirit one) one) 00:00: - CHI 00 [facility] Bupivicaine Bupivicaine 2020-03 No 2.5mg [facility] [place] 0-05 Spirit 00:00: - CHI 00 [facility] Kenalog Kenalog 2020-03 No 40mg Common (Triamcinol (Triamcinol 0-05 S pirit one) one) 00:00: - CHI 00 [facility] Bupivicaine Bupivicaine 2020-03 No 2.5mg [facility] [place] 0-05 Spirit 00:00: - [facility]I 00 [facility] Kenalog Kenalog 2020-03 No 40mg Common (Triamcinol (Triamcinol 0-05 S pirit one) one) 00:00: - CHI 00 [facility] Bupivicaine Bupivicaine 2020-03 No 2.5mg [facility] [place] 0-05 Spirit 00:00: - CHI 00 [facility] Kenalog Kenalog 2020-03 No 40mg Common (Triamcinol (Triamcinol 0-05 S pirit one) one) 00:00: - CHI 00 [facility] Bupivicaine Bupivicaine 2020-03 No 2.5mg [facility] [place] 0-05 Spirit 00:00: - CHI 00 [facility] Kenalog Kenalog 2020-03 No 40mg Common (Triamcinol (Triamcinol 0-05 S pirit one) one) 00:00: - CHI 00 [facility] Bupivicaine Bupivicaine 2020-03 No 2.5mg [facility] [place] 0-05 Spirit 00:00: - CHI 00 [facility] Eric Kenalog 2020-03 No 40mg Common (Triamcinol (Triamcinol 0-05 S pirit one) one) 00:00: - CHI 00 [facility] Bupivicaine Bupivicaine 2020-03 No 2.5mg [facility] [place] 0-05 Spirit 00:00: - CHI 00 [facility] Eric Mulleralog 2020-03 No 40mg Common (Triamcinol (Triamcinol 0-05 S pirit one) one) 00:00: - CHI 00 [facility] Bupivicaine Bupivicaine 2020-03 No 2.5mg [facility] [place] 0-05 Spirit 00:00: - CHI 00 [facility] Eric Kenalog 2020-03 No 40mg Common (Triamcinol (Triamcinol 0-05 S pirit one) one) 00:00: - CHI 00 [facility] Bupivicaine Bupivicaine 2020-03 No 2.5mg [facility] [place] 0-05 Spirit 00:00: - CHI 00 [facility] Eric Mulleralog 2020-03 No 40mg Common (Triamcinol (Triamcinol 0-05 S pirit one) one) 00:00: - CHI 00 [facility] Bupivicaine Bupivicaine 2020-03 No 2.5mg [facility] [place] 0-05 Spirit 00:00: - CHI 00 [facility] [place] Kenalog 2020-03 No 40mg Common (Triamcinol (Triamcinol 0-05 S pirit one) one) 00:00: - CHI 00 [facility] Bupivicaine Bupivicaine 2020-03 No 2.5mg [facility] [place] 0-05 Spirit 00:00: - CHI 00 [facility] Eric Kenalog 2020-03 No 40mg Common (Triamcinol (Triamcinol 0-05 S pirit one) one) 00:00: - CHI 00 [facility] Bupivicaine Bupivicaine 2020-03 No 2.5mg [facility] [place] 0-05 Spirit 00:00: - CHI 00 [facility] Kenalog Kenalog 2020-03 No 40mg Common (Triamcinol (Triamcinol 0-05 S pirit one) one) 00:00: - CHI 00 [facility] Bupivicaine Bupivicaine 2020-03 No 2.5mg [facility] [place] 0-05 Spirit 00:00: - CHI 00 [facility] Kenalog Kenalog 2020-03 No 40mg Common (Triamcinol (Triamcinol 0-05 S pirit one) one) 00:00: - CHI 00 [facility] Bupivicaine Bupivicaine 2020-03 No 2.5mg [facility] [place] 0-05 Spirit 00:00: - CHI 00 [facility] Kenalog Kenalog 2020-03 No 40mg Common (Triamcinol (Triamcinol 0-05 S pirit one) one) 00:00: - CHI 00 [facility] Bupivicaine Bupivicaine 2020-03 No 2.5mg [facility] [place] 0-05 Spirit 00:00: - CHI 00 [facility] Kenalog Kenalog 2020-03 No 40mg Common (Triamcinol (Triamcinol 0-05 S pirit one) one) 00:00: - CHI 00 [facility] Bupivicaine Bupivicaine 2020-03 No 2.5mg [facility] [place] 0-05 Spirit 00:00: - CHI 00 [facility] Kenalog Kenalog 2020-03 No 40mg Common (Triamcinol (Triamcinol 0-05 S pirit one) one) 00:00: - CHI 00 [facility] Bupivicaine Bupivicaine 2020-03 No 2.5mg [facility] [place] 0-05 Spirit 00:00: - CHI 00 [facility] Kenalog Kenalog 2020-03 No 40mg Common (Triamcinol (Triamcinol 0-05 S pirit one) one) 00:00: - CHI 00 [facility] Bupivicaine Bupivicaine 2020-03 No 2.5mg Common [place] 0-05 Spirit 00:00: - CHI 00 [facility] Eric Mulleralog 2020-03 No 40mg Common (Triamcinol (Triamcinol 0-05 S pirit one) one) 00:00: - CHI 00 [facility] Eric Kenalog 2020-03 No 40mg Common (Triamcinol (Triamcinol 0-05 S pirit one) one) 00:00: - CHI 00 [facility] Bupivicaine Bupivicaine 2020-03 No 2.5mg [facility] [place] 0-05 Spirit 00:00: - CHI 00 [facility] Eric Mulleralog 2020-03 No 40mg Common (Triamcinol (Triamcinol 0-05 S pirit one) one) 00:00: - CHI 00 [facility] Bupivicaine Bupivicaine 2020-03 No 2.5mg [facility] [place] 0-05 Spirit 00:00: - CHI 00 [facility] Eric Kenalog 2020-03 No 40mg Common (Triamcinol (Triamcinol 0-05 S pirit one) one) 00:00: - CHI 00 [facility] Bupivicaine Bupivicaine 2020-03 No 2.5mg Common [place] 0-05 Spirit 00:00: - CHI 00 [facility] Eric Kenalog 2020-03 No 40mg Common (Triamcinol (Triamcinol 0-05 S pirit one) one) 00:00: - CHI 00 [facility] Bupivicaine Bupivicaine 2020-03 No 2.5mg [facility] [place] 0-05 Spirit 00:00: - CHI 00 [facility] Eric Kenalog 2020-03 No 40mg Common (Triamcinol (Triamcinol 0-05 S pirit one) one) 00:00: - CHI 00 [facility] Bupivicaine Bupivicaine 2020-03 No 2.5mg Common [place] 0-05 Spirit 00:00: - CHI 00 [facility] [place] Kenalog 2020-03 No 40mg Common (Triamcinol (Triamcinol 0-05 S pirit one) one) 00:00: - CHI 00 [facility] Bupivicaine Bupivicaine 2020-03 No 2.5mg Common [place] 0-05 Spirit 00:00: - CHI 00 [facility] [place] Kenalog 2020-03 No 40mg Common (Triamcinol (Triamcinol 0-05 S pirit one) one) 00:00: - CHI 00 [facility] Bupivicaine Bupivicaine 2020-03 No 2.5mg Common [place] 0-05 Spirit 00:00: - CHI 00 [facility] Eric Kenalog 2020-03 No 40mg Common (Triamcinol (Triamcinol 0-05 S pirit one) one) 00:00: - CHI 00 [facility] Bupivicaine Bupivicaine 2020-03 No 2.5mg Common [place] 0-05 Spirit 00:00: - CHI 00 [facility] [place] Kenalog 2020-03 No 40mg Common (Triamcinol (Triamcinol 0-05 S pirit one) one) 00:00: - CHI 00 [facility] Bupivicaine Bupivicaine 2020-03 No 2.5mg Common [place] 0-05 Spirit 00:00: - CHI 00 [facility] [place] Kenalog 2020-03 No 40mg Common (Triamcinol (Triamcinol 0-05 S pirit one) one) 00:00: - CHI 00 [facility] Bupivicaine Bupivicaine 2020-03 No 2.5mg [facility] [place] 0-05 Spirit 00:00: - CHI 00 [facility] Bupivicaine Bupivicaine 2020-03 No 2.5mg Common [place] 0-05 Spirit 00:00: - CHI 00 [facility] [place] Kenalog 2020-03 No 40mg Common (Triamcinol (Triamcinol 0-05 S pirit one) one) 00:00: - CHI 00 [facility] [place] Kenalog 2020-03 No 40mg Common (Triamcinol (Triamcinol 0-05 S pirit one) one) 00:00: - CHI 00 [facility] Bupivicaine Bupivicaine 2020-03 No 2.5mg Common [place] 0-05 Spirit 00:00: - CHI 00 [facility] Eric Mulleralog 2020-03 No 40mg Common (Triamcinol (Triamcinol 0-05 S pirit one) one) 00:00: - CHI 00 [facility] Bupivicaine Bupivicaine 2020-03 No 2.5mg Common [place] 0-05 Spirit 00:00: - CHI 00 [facility] Eric Kenalog 2020-03 No 40mg Common (Triamcinol (Triamcinol 0-05 S pirit one) one) 00:00: - CHI 00 [facility] Bupivicaine Bupivicaine 2020-03 No 2.5mg Common [place] 0-05 Spirit 00:00: - CHI 00 [facility] Eric Reyes 2020-03 No 40mg Common (Triamcinol (Triamcinol 0-05 S pirit one) one) 00:00: - CHI 00 [facility] Bupivicaine Bupivicaine 2020-03 No 2.5mg Common [place] 0-05 Spirit 00:00: - CHI 00 [facility] Eric Reyes 2020-03 No 40mg Common (Triamcinol (Triamcinol 0-05 S pirit one) one) 00:00: - CHI 00 [facility] Bupivicaine Bupivicaine 2020-03 No 2.5mg Common [place] 0-05 Spirit 00:00: - CHI 00 [facility] Eric Kenalog 2020-03 No 40mg Common (Triamcinol (Triamcinol 0-05 S pirit one) one) 00:00: - CHI 00 [facility] Bupivicaine Bupivicaine 2020-03 No 2.5mg Common [place] 0-05 Spirit 00:00: - CHI 00 [facility] Eric Kenalog 2020-03 No 40mg Common (Triamcinol (Triamcinol 0-05 S pirit one) one) 00:00: - CHI 00 [facility] Bupivicaine Bupivicaine 2021-1 No 2.5mg Common [place] 0-05 Spirit 00:00: - CHI 00 [facility] Renzoalog Kenalog 2020-03 No 40mg Common (Triamcinol (Triamcinol 0-05 S pirit one) one) 00:00: - CHI 00 [facility] Bupivicaine Bupivicaine 2020-03 No 2.5mg Common [place] 0-05 Spirit 00:00: - CHI 00 [facility] [place] Kenalog 2020-03 No 40mg Common (Triamcinol (Triamcinol 0-05 S pirit one) one) 00:00: - CHI 00 [facility] Bupivicaine Bupivicaine 2020-03 No 2.5mg Common [place] 0-05 Spirit 00:00: - CHI 00 [facility] Eric Kenalog 2020-03 No 40mg Common (Triamcinol (Triamcinol 0-05 S pirit one) one) 00:00: - CHI 00 [facility] Bupivicaine Bupivicaine 2020-03 No 2.5mg [facility] [place] 0-05 Spirit 00:00: - CHI 00 [facility] Bupivicaine Bupivicaine 2020-03 No 2.5mg Common [place] 0-05 Spirit 00:00: - CHI 00 [facility] Eric Kenalog 2020-03 No 40mg Common (Triamcinol (Triamcinol 0-05 S pirit one) one) 00:00: - CHI 00 [facility] Bupivicaine Bupivicaine 2020-03 No 2.5mg Common [place] 0-05 Spirit 00:00: - CHI 00 [facility] Kenalog Kenalog 2020-03 No 40mg Common (Triamcinol (Triamcinol 0-05 S pirit one) one) 00:00: - CHI 00 [facility] Bupivicaine Bupivicaine 2020-03 No 2.5mg Common [place] 0-05 Spirit 00:00: - CHI 00 [facility] Kenalog Kenalog 2020-03 No 40mg Common (Triamcinol (Triamcinol 0-05 S pirit one) one) 00:00: - CHI 00 [facility] Bupivicaine Bupivicaine 2020-03 No Common [place] 0-05 Spirit 00:00: - CHI 00 [facility] Eric Kenalog 2020-03 No 40mg Common (Triamcinol (Triamcinol 0-05 S pirit one) one) 00:00: - CHI 00 [facility] Bupivicaine Bupivicaine 2020-03 No Common [place] 0-05 Spirit 00:00: - CHI 00 [facility] Kenalog Kenalog 2020-03 No 40mg Common (Triamcinol (Triamcinol 0-05 S pirit one) one) 00:00: - CHI 00 [facility] Bupivicaine Bupivicaine 2020-03 No Common [place] 0-05 [facility] 00:00: - CHI 00 [facility] Eric Kenalog 2020-03 No 40mg Common (Triamcinol (Triamcinol 0-05 S pirit one) one) 00:00: - CHI 00 [facility] Bupivicaine Bupivicaine 2020-03 No 2.5mg Common [place] 0-05 [facility] 00:00: - CHI 00 [facility] Eric Kenalog 2020-03 No 40mg Common (Triamcinol (Triamcinol 0-05 S pirit one) one) 00:00: - CHI 00 [facility] Bupivicaine Bupivicaine 2020-03 No 2.5mg Common [place] 0-05 [facility] 00:00: - CHI 00 [facility] [place] Kenalog 2020-03 No 40mg Common (Triamcinol (Triamcinol 0-05 S pirit one) one) 00:00: - CHI 00 [facility] Bupivicaine Bupivicaine 2020-03 No 2.5mg Common [place] 0-05 [facility] 00:00: - CHI 00 [facility] Kenalog Kenalog 2020-03 No 40mg Common (Triamcinol (Triamcinol 0-05 S pirit one) one) 00:00: - CHI 00 [facility] Bupivicaine Bupivicaine 2020-03 No 2.5mg Common [place] 0-05 [facility] 00:00: - CHI 00 [facility] Eric Reyes 2020-03 No 40mg Common (Triamcinol (Triamcinol 0-05 S pirit one) one) 00:00: - CHI 00 [facility] Bupivicaine Bupivicaine 2020-03 No 2.5mg Common [place] 0-05 [facility] 00:00: - CHI 00 [facility] Eric Reyes 2020-03 No 40mg Common (Triamcinol (Triamcinol 0-05 S pirit one) one) 00:00: - CHI 00 [facility] Bupivicaine Bupivicaine 2020-03 No 2.5mg Common [place] 0-05 [facility] 00:00: - CHI [facility] Eric Reyes 2020-03 No 40mg Common (Triamcinol (Triamcinol 0-05 S pirit one) one) 00:00: - CHI [facility] Bupivicaine Bupivicaine 2020-03 No 2.5mg Common [place] 0-05 [facility] 00:00: - CHI 00 [facility] Eric Reyes 2020-03 No 40mg Common (Triamcinol (Triamcinol 0-05 S pirit one) one) 00:00: - CHI 00 [facility] Bupivicaine Bupivicaine 2020-03 No 2.5mg Common [place] 0-05 Spirit 00:00: - [facility] Eric Reyes 2020-03 No 40mg Common (Triamcinol (Triamcinol 0-05 S pirit one) one) 00:00: - [facility] traMADol traMADol 2020- No traMADol [...] MG 00:00: 00:00 00 :00 traMADol traMADol 2020-0 2021- No traMADol HCl 50 MG HCl 50 [...] MG/5ML 00 MG/5ML Hyalgan 20 Hyalgan 20 2020-0 No 20mg C ommon mg mg 07-31 Spirit 00:00: - [facility] Hyalgan 20 Hyalgan 20 2020-0 No 20mg C ommon mg mg 07-31 Spirit 00:00: - [facility] Hyalgan 20 Hyalgan 20 2020-0 No 20mg C ommon mg mg 07-31 Spirit 00:00: - [facility] Hyalgan 20 Hyalgan 20 2020-0 No 20mg C ommon mg mg 07-31 Spirit 00:00: - [facility] Hyalgan 20 Hyalgan 20 2020-0 No 20mg C [facility] mg mg 07-31 [facility] 00:00: - [facility] Hyalgan 20 Hyalgan 20 2020-0 No 20mg C [facility] mg mg 07-31 [facility] 00:00: - [facility] Hyalgan 20 Hyalgan 20 2020-0 No 20mg C [facility] mg mg 07-31 [facility] 00:00: - [facility] Hyalgan 20 Hyalgan 20 2020-0 No 20mg C [facility] mg mg 07-31 [facility] 00:00: - [facility] Hyalgan 20 Hyalgan 20 2020-0 No 20mg C [facility] mg mg 07-31 [facility] 00:00: - [facility] Hyalgan 20 Hyalgan 20 2020-0 No 20mg C [facility] mg mg 07-31 [facility] 00:00: - [facility] Hyalgan 20 Hyalgan 20 1-0 No 20mg C [facility] mg mg 07-31 [facility] 00:00: - [facility] Hyalgan 20 Hyalgan 20 2020-0 No 20mg C [facility] mg mg 07-31 [facility] 00:00: - [facility] Hyalgan 20 Hyalgan 20 1-0 No 20mg C [facility] mg mg 07-31 [facility] 00:00: - [facility] Hyalgan 20 Hyalgan 20 2020-0 No 20mg C [facility] mg mg 07-31 [facility] 00:00: - [facility] Hyalgan 20 Hyalgan 20 1-0 No 20mg C [facility] mg mg 07-31 [facility] 00:00: - [facility] Hyalgan 20 Hyalgan 20 1-0 No 20mg C [facility] mg mg 07-31 [facility] 00:00: - [facility] Hyalgan 20 Hyalgan 20 1-0 No 20mg C [facility] mg mg 07-31 [facility] 00:00: - [facility] Hyalgan 20 Hyalgan 20 1-0 No 20mg C [facility] mg mg 07-31 [facility] 00:00: - [facility] Hyalgan 20 Hyalgan 20 2020-0 No 20mg C [facility] mg mg 07-31 [facility] 00:00: - [facility] Hyalgan 20 Hyalgan 20 2020-0 No 20mg C [facility] mg mg 07-31 [facility] 00:00: - [facility] Hyalgan 20 Hyalgan 20 2020-0 No 20mg C [facility] mg mg 07-31 [facility] 00:00: - [facility] Hyalgan 20 Hyalgan 20 2020-0 No 20mg C [facility] mg mg 07-31 [facility] 00:00: - [facility] Hyalgan 20 Hyalgan 20 2020-0 No 20mg C [facility] mg mg 07-31 [facility] 00:00: - [facility] Hyalgan 20 Hyalgan 20 1-0 No 20mg C [facility] mg mg 07-31 [facility] 00:00: - [facility] Hyalgan 20 Hyalgan 20 2020-0 No 20mg C [facility] mg mg 07-31 [facility] 00:00: - [facility] Hyalgan 20 Hyalgan 20 1-0 No 20mg C [facility] mg mg 07-31 [facility] 00:00: - [facility] Hyalgan 20 Hyalgan 20 1-0 No 20mg C [facility] mg mg 07-31 [facility] 00:00: - [facility] Hyalgan 20 Hyalgan 20 1-0 No 20mg C [facility] mg mg 07-31 [facility] 00:00: - [facility] Hyalgan 20 Hyalgan 20 2020-0 No 20mg C [facility] mg mg 07-31 [facility] 00:00: - [facility] Hyalgan 20 Hyalgan 20 2020-0 No 20mg C [facility] mg mg 07-31 [facility] 00:00: - [facility] Hyalgan 20 Hyalgan 20 2020-0 No 20mg C [facility] mg mg 07-31 [facility] 00:00: - [facility] Hyalgan 20 Hyalgan 20 2020-0 No 20mg C [facility] mg mg 07-31 [facility] 00:00: - [facility] Hyalgan 20 Hyalgan 20 2020-0 No 20mg C [facility] mg mg 07-31 [facility] 00:00: - [facility] Hyalgan 20 Hyalgan 20 2020-0 No 20mg C [facility] mg mg 07-31 [facility] 00:00: - [facility] Hyalgan 20 Hyalgan 20 2020-0 No 20mg C [facility] mg mg 07-31 [facility] 00:00: - [facility] Hyalgan 20 Hyalgan 20 2020-0 No 20mg C [facility] mg mg 07-31 [facility] 00:00: - [facility] Hyalgan 20 Hyalgan 20 2020-0 No 20mg C [facility] mg mg 07-31 [facility] 00:00: - [facility] Hyalgan 20 Hyalgan 20 2020-0 No 20mg C [facility] mg mg 07-31 [facility] 00:00: - [facility] Hyalgan 20 Hyalgan 20 2020-0 No 20mg C [facility] mg mg 07-31 [facility] 00:00: - [facility] Hyalgan 20 Hyalgan 20 2020-0 No 20mg C [facility] mg mg 07-31 [facility] 00:00: - [facility] Hyalgan 20 Hyalgan 20 2020-0 No 20mg C [facility] mg mg 07-31 [facility] 00:00: - [facility] Hyalgan 20 Hyalgan 20 2020-0 No 20mg C [facility] mg mg 07-31 [facility] 00:00: - [facility] Hyalgan 20 Hyalgan 20 2020-0 No 20mg C [facility] mg mg 07-31 [facility] 00:00: - [facility] Hyalgan 20 Hyalgan 20 2020-0 No 20mg C [facility] mg mg 07-31 [facility] 00:00: - [facility] Hyalgan 20 Hyalgan 20 2020-0 No 20mg C [facility] mg mg 07-31 [facility] 00:00: - [facility] Hyalgan 20 Hyalgan 20 2020-0 No 20mg C [facility] mg mg 07-31 [facility] 00:00: - [facility] Hyalgan 20 Hyalgan 20 2020-0 No 20mg C [facility] mg mg 07-31 [facility] 00:00: - [facility] Hyalgan 20 Hyalgan 20 2020-0 No 20mg C [facility] mg mg 07-31 [facility] 00:00: - [facility] Hyalgan 20 Hyalgan 20 2020-0 No 20mg C [facility] mg mg 07-31 [facility] 00:00: - [facility] Hyalgan 20 Hyalgan 20 2020-0 No 20mg C [facility] mg mg 07-31 [facility] 00:00: - [facility] Hyalgan 20 Hyalgan 20 2020-0 No 20mg C [facility] mg mg 07-31 [facility] 00:00: - [facility] Hyalgan 20 Hyalgan 20 2020-0 No 20mg C [facility] mg mg 07-31 [facility] 00:00: - [facility] Hyalgan 20 Hyalgan 20 2020-0 No 20mg C [facility] mg mg 07-31 [facility] 00:00: - [facility] Hyalgan 20 Hyalgan 20 2020-0 No 20mg C [facility] mg mg 07-31 [facility] 00:00: - [facility] Hyalgan 20 Hyalgan 20 2020-0 No 20mg C [facility] mg mg 07-31 [facility] 00:00: - [facility] Hyalgan 20 Hyalgan 20 2020-0 No 20mg C [facility] mg mg 07-31 [facility] 00:00: - [facility] Hyalgan 20 Hyalgan 20 2020-0 No 20mg C [facility] mg mg 07-24 [facility] 00:00: - [facility] Hyalgan 20 Hyalgan 20 2020-0 No 20mg C [facility] mg mg 07-24 [facility] 00:00: - [facility] Hyalgan 20 Hyalgan 20 2020-0 No 20mg C [facility] mg mg 07-24 [facility] 00:00: - [facility] Hyalgan 20 Hyalgan 20 2020-0 No 20mg C [facility] mg mg 07-24 [facility] 00:00: - [facility] Hyalgan 20 Hyalgan 20 2020-0 No 20mg C [facility] mg mg 07-24 [facility] 00:00: - [facility] Hyalgan 20 Hyalgan 20 2020-0 No 20mg C [facility] mg mg 07-24 [facility] 00:00: - [facility] Hyalgan 20 Hyalgan 20 2020-0 No 20mg C [facility] mg mg 07-24 [facility] 00:00: - [facility] Hyalgan 20 Hyalgan 20 2020-0 No 20mg C [facility] mg mg 07-24 [facility] 00:00: - [facility] Hyalgan 20 Hyalgan 20 2020-0 No 20mg C [facility] mg mg 07-24 [facility] 00:00: - [facility] Hyalgan 20 Hyalgan 20 2020-0 No 20mg C [facility] mg mg 07-24 [facility] 00:00: - [facility] Hyalgan 20 Hyalgan 20 2020-0 No 20mg C [facility] mg mg 07-24 [facility] 00:00: - [facility] Hyalgan 20 Hyalgan 20 2020-0 No 20mg C [facility] mg mg 07-24 [facility] 00:00: - [facility] Hyalgan 20 Hyalgan 20 2020-0 No 20mg C [facility] mg mg 07-24 [facility] 00:00: - [facility] Hyalgan 20 Hyalgan 20 2020-0 No 20mg C [facility] mg mg 07-24 [facility] 00:00: - [facility] Hyalgan 20 Hyalgan 20 2020-0 No 20mg C [facility] mg mg 07-24 [facility] 00:00: - [facility] Hyalgan 20 Hyalgan 20 2020-0 No 20mg C [facility] mg mg 07-24 [facility] 00:00: - [facility] Hyalgan 20 Hyalgan 20 2020-0 No 20mg C [facility] mg mg 07-24 [facility] 00:00: - [facility] Hyalgan 20 Hyalgan 20 2020-0 No 20mg C [facility] mg mg 07-24 [facility] 00:00: - [facility] Hyalgan 20 Hyalgan 20 2020-0 No 20mg C [facility] mg mg 07-24 [facility] 00:00: - [facility] Hyalgan 20 Hyalgan 20 2020-0 No 20mg C [facility] mg mg 07-24 [facility] 00:00: - [facility] Hyalgan 20 Hyalgan 20 2020-0 No 20mg C [facility] mg mg 07-24 [facility] 00:00: - [facility] Hyalgan 20 Hyalgan 20 2020-0 No 20mg C [facility] mg mg 07-24 [facility] 00:00: - [facility] Hyalgan 20 Hyalgan 20 2020-0 No 20mg C [facility] mg mg 07-24 [facility] 00:00: - [facility] Hyalgan 20 Hyalgan 20 2020-0 No 20mg C [facility] mg mg 07-24 [facility] 00:00: - [facility] Hyalgan 20 Hyalgan 20 2020-0 No 20mg C [facility] mg mg 07-24 [facility] 00:00: - [facility] Hyalgan 20 Hyalgan 20 2020-0 No 20mg C [facility] mg mg 07-24 [facility] 00:00: - [facility] Hyalgan 20 Hyalgan 20 2020-0 No 20mg C [facility] mg mg 07-24 [facility] 00:00: - [facility] Hyalgan 20 Hyalgan 20 2020-0 No 20mg C [facility] mg mg 07-24 [facility] 00:00: - [facility] Hyalgan 20 Hyalgan 20 2020-0 No 20mg C [facility] mg mg 07-24 [facility] 00:00: - [facility] Hyalgan 20 Hyalgan 20 2020-0 No 20mg C [facility] mg mg 07-24 [facility] 00:00: - [facility] Hyalgan 20 Hyalgan 20 2020-0 No 20mg C [facility] mg mg 07-24 [facility] 00:00: - [facility] Hyalgan 20 Hyalgan 20 2020-0 No 20mg C [facility] mg mg 07-24 [facility] 00:00: - [facility] Hyalgan 20 Hyalgan 20 2020-0 No 20mg C [facility] mg mg 07-24 [facility] 00:00: - [facility] Hyalgan 20 Hyalgan 20 2020-0 No 20mg C [facility] mg mg 07-24 [facility] 00:00: - [facility] Hyalgan 20 Hyalgan 20 2020-0 No 20mg C [facility] mg mg 07-24 [facility] 00:00: - [facility] Hyalgan 20 Hyalgan 20 2020-0 No 20mg C [facility] mg mg 07-24 [facility] 00:00: - [facility] Hyalgan 20 Hyalgan 20 2020-0 No 20mg C [facility] mg mg 07-24 [facility] 00:00: - [facility] Hyalgan 20 Hyalgan 20 2020-0 No 20mg C [facility] mg mg 07-24 [facility] 00:00: - [facility] Hyalgan 20 Hyalgan 20 2020-0 No 20mg C [facility] mg mg 07-24 [facility] 00:00: - [facility] Hyalgan 20 Hyalgan 20 2020-0 No 20mg C [facility] mg mg 07-24 [facility] 00:00: - [facility] Hyalgan 20 Hyalgan 20 2020-0 No 20mg C [facility] mg mg 07-24 [facility] 00:00: - [facility] Hyalgan 20 Hyalgan 20 2020-0 No 20mg C [facility] mg mg 07-24 [facility] 00:00: - [facility] Hyalgan 20 Hyalgan 20 2020-0 No 20mg C [facility] mg mg 07-24 [facility] 00:00: - [facility] Hyalgan 20 Hyalgan 20 2020-0 No 20mg C [facility] mg mg 07-24 [facility] 00:00: - [facility] Hyalgan 20 Hyalgan 20 2020-0 No 20mg C [facility] mg mg 07-24 [facility] 00:00: - [facility] Hyalgan 20 Hyalgan 20 2020-0 No 20mg C [facility] mg mg 07-24 [facility] 00:00: - [facility] Hyalgan 20 Hyalgan 20 2020-0 No 20mg C [facility] mg mg 07-24 [facility] 00:00: - [facility] Hyalgan 20 Hyalgan 20 2020-0 No 20mg C [facility] mg mg 07-24 [facility] 00:00: - [facility] Hyalgan 20 Hyalgan 20 2020-0 No 20mg C [facility] mg mg 07-24 [facility] 00:00: - [facility] Hyalgan 20 Hyalgan 20 2020-0 No 20mg C [facility] mg mg 07-24 [facility] 00:00: - [facility] Hyalgan 20 Hyalgan 20 2020-0 No 20mg C [facility] mg mg 07-24 [facility] 00:00: - [facility] Hyalgan 20 Hyalgan 20 2020-0 No 20mg C [facility] mg mg 07-24 [facility] 00:00: - [facility] Hyalgan 20 Hyalgan 20 2020-0 No 20mg C [facility] mg mg 07-24 [facility] 00:00: - [facility] Hyalgan 20 Hyalgan 20 2020-0 No 20mg C [facility] mg mg 07-24 [facility] 00:00: - [facility] Hyalgan 20 Hyalgan 20 2020-0 No 20mg C [facility] mg mg 07-24 [facility] 00:00: - [facility] Hyalgan 20 Hyalgan 20 2020-0 No 20mg C [facility] mg mg 07-24 [facility] 00:00: - [facility] Hyalgan 20 Hyalgan 20 2020-0 No 20mg C [facility] mg mg 07-17 [facility] 00:00: - [facility] Bupivicaine Bupivicaine 2020-0 No 2.5mg [facility] [place] 07-17 [facility] 00:00: - [facility] Kenalog Kenalog 2020-0 No 40mg [facility] (Triamcinol (Triamcinol -27 S pirit one) one) 00:00: - [facility] Hyalgan 20 Hyalgan 20 2020-0 No 20mg C [facility] mg mg 07-17 [facility] 00:00: - [facility] Bupivicaine Bupivicaine 2020-0 No 2.5mg [facility] [place] 4-27 [facility] 00:00: - [facility] Kenalog Kenalog 2020-0 No 40mg [facility] (Triamcinol (Triamcinol 4-27 S pirit one) one) 00:00: - [facility] Hyalgan 20 Hyalgan 20 2020-0 No 20mg C [facility] mg mg 4-27 [facility] 00:00: - [facility] Bupivicaine Bupivicaine 2020-0 No 2.5mg [facility] [place] -27 [facility] 00:00: - [facility] Kenalog Kenalog 2020-0 No 40mg [facility] (Triamcinol (Triamcinol 4-27 S pirit one) one) 00:00: - [facility] Hyalgan 20 Hyalgan 20 2020-0 No 20mg C [facility] mg mg - [facility] 00:00: - [facility] Bupivicaine Bupivicaine 2020-0 No 2.5mg [facility] [place] -27 [facility] 00:00: - [facility] Kenalog Kenalog 0 No 40mg [facility] (Triamcinol (Triamcinol 4-27 S pirit one) one) 00:00: - [facility] Hyalgan 20 Hyalgan 20 2020-0 No 20mg C [facility] mg mg - [facility] 00:00: - [facility] Bupivicaine Bupivicaine 2020-0 No 2.5mg [facility] [place] -27 [facility] 00:00: - [facility] Kenalog Kenalog 2020-0 No 40mg [facility] (Triamcinol (Triamcinol 4-27 S pirit one) one) 00:00: - [facility] Hyalgan 20 Hyalgan 20 2020-0 No 20mg C [facility] mg mg 4-27 [facility] 00:00: - [facility] Bupivicaine Bupivicaine 2020-0 No 2.5mg [facility] [place] 4-27 [facility] 00:00: - [facility] Kenalog Kenalog 2020-0 No 40mg [facility] (Triamcinol (Triamcinol 4-27 S pirit one) one) 00:00: - [facility] Hyalgan 20 Hyalgan 20 2020-0 No 20mg C [facility] mg mg -27 [facility] 00:00: - [facility] Bupivicaine Bupivicaine 2020-0 No 2.5mg [facility] [place] 4-27 [facility] 00:00: - [facility] Kenalog Kenalog 2020-0 No 40mg [facility] (Triamcinol (Triamcinol 4-27 S pirit one) one) 00:00: - [facility] Hyalgan 20 Hyalgan 20 2020-0 No 20mg C [facility] mg mg - [facility] 00:00: - [facility] Bupivicaine Bupivicaine 2020-0 No 2.5mg [facility] [place] -27 [facility] 00:00: - [facility] Kenalog Kenalog 0 No 40mg [facility] (Triamcinol (Triamcinol 4-27 S pirit one) one) 00:00: - [facility] Hyalgan 20 Hyalgan 20 2020-0 No 20mg C [facility] mg mg - [facility] 00:00: - [facility] Bupivicaine Bupivicaine 2020-0 No 2.5mg [facility] [place] - [facility] 00:00: - [facility] Kenalog Kenalog 2020-0 No 40mg [facility] (Triamcinol (Triamcinol 4-27 S pirit one) one) 00:00: - [facility] Hyalgan 20 Hyalgan 20 2020-0 No 20mg C [facility] mg mg - [facility] 00:00: - [facility] Bupivicaine Bupivicaine 2020-0 No 2.5mg [facility] [place] 4-27 [facility] 00:00: - [facility] Kenalog Kenalog 2020-0 No 40mg [facility] (Triamcinol (Triamcinol 4-27 S pirit one) one) 00:00: - [facility] Hyalgan 20 Hyalgan 20 2020-0 No 20mg C [facility] mg mg 4-27 [facility] 00:00: - [facility] Bupivicaine Bupivicaine 2020-0 No 2.5mg [facility] [place] 4-27 [facility] 00:00: - [facility] Kenalog Kenalog 2020-0 No 40mg [facility] (Triamcinol (Triamcinol 4-27 S pirit one) one) 00:00: - [facility] Hyalgan 20 Hyalgan 20 2020-0 No 20mg C [facility] mg mg 07-17 [facility] 00:00: - [facility] Bupivicaine Bupivicaine 2020-0 No 2.5mg [facility] [place] -27 [facility] 00:00: - [facility] Kenalog Kenalog 2020-0 No 40mg [facility] (Triamcinol (Triamcinol 4-27 S pirit one) one) 00:00: - [facility] Hyalgan 20 Hyalgan 20 2020-0 No 20mg C [facility] mg mg 07-17 [facility] 00:00: - [facility] Bupivicaine Bupivicaine 2020-0 No 2.5mg [facility] [place] -27 [facility] 00:00: - [facility] Kenalog Kenalog 2020-0 No 40mg [facility] (Triamcinol (Triamcinol 4-27 S pirit one) one) 00:00: - [facility] Hyalgan 20 Hyalgan 20 2020-0 No 20mg C [facility] mg mg 07-17 [facility] 00:00: - [facility] Bupivicaine Bupivicaine 2020-0 No 2.5mg [facility] [place] 4-27 [facility] 00:00: - [facility] Kenalog Kenalog 2020-0 No 40mg [facility] (Triamcinol (Triamcinol 4-27 S pirit one) one) 00:00: - [facility] Hyalgan 20 Hyalgan 20 2020-0 No 20mg C [facility] mg mg - [facility] 00:00: - [facility] Bupivicaine Bupivicaine 2020-0 No 2.5mg [facility] [place] 4-27 [facility] 00:00: - [facility] Kenalog Kenalog 2020-0 No 40mg [facility] (Triamcinol (Triamcinol 4-27 S pirit one) one) 00:00: - [facility] Hyalgan 20 Hyalgan 20 2020-0 No 20mg C [facility] mg mg 4-27 [facility] 00:00: - [facility] Bupivicaine Bupivicaine 2020-0 No 2.5mg [facility] [place] 4-27 [facility] 00:00: - [facility] Kenalog Kenalog 2020-0 No 40mg [facility] (Triamcinol (Triamcinol 4-27 S pirit one) one) 00:00: - [facility] Hyalgan 20 Hyalgan 20 2020-0 No 20mg C [facility] mg mg 4-27 [facility] 00:00: - [facility] Bupivicaine Bupivicaine 2020-0 No 2.5mg [facility] [place] 4-27 [facility] 00:00: - [facility] Kenalog Kenalog 2020-0 No 40mg [facility] (Triamcinol (Triamcinol 4-27 S pirit one) one) 00:00: - [facility] Hyalgan 20 Hyalgan 20 2020-0 No 20mg C [facility] mg mg -27 [facility] 00:00: - [facility] Bupivicaine Bupivicaine 2020-0 No 2.5mg [facility] [place] 4-27 [facility] 00:00: - [facility] Kenalog Kenalog 2020-0 No 40mg [facility] (Triamcinol (Triamcinol 4-27 S pirit one) one) 00:00: - [facility] Hyalgan 20 Hyalgan 20 2020-0 No 20mg C [facility] mg mg 4-27 [facility] 00:00: - [facility] Bupivicaine Bupivicaine 2020-0 No 2.5mg [facility] [place] 4-27 [facility] 00:00: - [facility] Kenalog Kenalog 2020-0 No 40mg [facility] (Triamcinol (Triamcinol 4-27 S pirit one) one) 00:00: - [facility] Hyalgan 20 Hyalgan 20 2020-0 No 20mg C [facility] mg mg 4-27 [facility] 00:00: - [facility] Bupivicaine Bupivicaine 2020-0 No 2.5mg [facility] [place] 4-27 [facility] 00:00: - [facility] Kenalog Kenalog 2020-0 No 40mg [facility] (Triamcinol (Triamcinol 4-27 S pirit one) one) 00:00: - [facility] Hyalgan 20 Hyalgan 20 2020-0 No 20mg C [facility] mg mg 4-27 [facility] 00:00: - [facility] Bupivicaine Bupivicaine 2020-0 No 2.5mg [facility] [place] 4-27 [facility] 00:00: - [facility] Kenalog Kenalog 2020-0 No 40mg [facility] (Triamcinol (Triamcinol 4-27 S pirit one) one) 00:00: - [facility] Hyalgan 20 Hyalgan 20 2020-0 No 20mg C [facility]mon mg mg -27 [facility] 00:00: - [facility] Bupivicaine Bupivicaine 2020-0 No 2.5mg [facility] [place] 4-27 [facility] 00:00: - [facility] Kenalog Kenalog 2020-0 No 40mg [facility] (Triamcinol (Triamcinol 4-27 S pirit one) one) 00:00: - [facility] Hyalgan 20 Hyalgan 20 2020-0 No 20mg C [facility] mg mg -27 [facility] 00:00: - [facility] Bupivicaine Bupivicaine 2020-0 No 2.5mg [facility] [place] 4-27 [facility] 00:00: - [facility] Kenalog Kenalog 2020-0 No 40mg [facility] (Triamcinol (Triamcinol 4-27 S pirit one) one) 00:00: - [facility] Hyalgan 20 Hyalgan 20 2020-0 No 20mg C [facility] mg mg 4-27 [facility] 00:00: - [facility] Bupivicaine Bupivicaine 2020-0 No 2.5mg [facility] [place] 4-27 [facility] 00:00: - [facility] Kenalog Kenalog 2020-0 No 40mg Common (Triamcinol (Triamcinol 4-27 S pirit one) one) 00:00: - [facility] Hyalgan 20 Hyalgan 20 2020-0 No 20mg C ommon mg mg - [facility] 00:00: - [facility] Bupivicaine Bupivicaine 2020-0 No 2.5mg [facility] [place] 4-27 [facility] 00:00: - [facility] Kenalog Kenalog 2020-0 No 40mg Common (Triamcinol (Triamcinol 4-27 S pirit one) one) 00:00: - [facility] Hyalgan 20 Hyalgan 20 2020-0 No 20mg C [facility]mon mg mg - [facility] 00:00: - [facility] Bupivicaine Bupivicaine 2020-0 No 2.5mg [facility] [place] - [facility] 00:00: - [facility] Kenalog Kenalog 2020-0 No 40mg [facility] (Triamcinol (Triamcinol 4-27 S pirit one) one) 00:00: - [facility] Hyalgan 20 Hyalgan 20 2020-0 No 20mg C ommon mg mg - [facility] 00:00: - [facility] Bupivicaine Bupivicaine 2020-0 No 2.5mg [facility] [place] -27 [facility] 00:00: - [facility] Kenalog Kenalog 2020-0 No 40mg [facility] (Triamcinol (Triamcinol 4-27 S pirit one) one) 00:00: - [facility] Hyalgan 20 Hyalgan 20 2020-0 No 20mg C [facility]mon mg mg - [facility] 00:00: - [facility] Bupivicaine Bupivicaine 2020-0 No 2.5mg [facility] [place] 4-27 [facility] 00:00: - [facility] Kenalog Kenalog 2020-0 No 40mg [facility] (Triamcinol (Triamcinol 4-27 S pirit one) one) 00:00: - [facility] Hyalgan 20 Hyalgan 20 2020-0 No 20mg C [facility]mon mg mg 4-27 [facility] 00:00: - [facility] Bupivicaine Bupivicaine 2020-0 No 2.5mg [facility] [place] 4-27 [facility] 00:00: - [facility] Hyalgan 20 Hyalgan 20 2020-0 No 20mg C [facility]mon mg mg 4-27 [facility] 00:00: - [facility] Kenalog Kenalog 2020-0 No 40mg Common (Triamcinol (Triamcinol 4-27 S pirit one) one) 00:00: - [facility] Hyalgan 20 Hyalgan 20 2020-0 No 20mg C [facility]mon mg mg 4-27 [facility] 00:00: - [facility] Bupivicaine Bupivicaine 2020-0 No 2.5mg [facility] [place] 4-27 [facility] 00:00: - [facility] Kenalog Kenalog 2020-0 No 40mg Common (Triamcinol (Triamcinol 4-27 S pirit one) one) 00:00: - [facility] Bupivicaine Bupivicaine 2020-0 No 2.5mg [facility] [place] 4-27 [facility] 00:00: - [facility] Hyalgan 20 Hyalgan 20 2020-0 No 20mg C ommon mg mg 4-27 [facility] 00:00: - [facility] Bupivicaine Bupivicaine 2020-0 No 2.5mg [facility] [place] 4-27 [facility] 00:00: - [facility] Kenalog Kenalog 2020-0 No 40mg Common (Triamcinol (Triamcinol 4-27 S pirit one) one) 00:00: - [facility] Hyalgan 20 Hyalgan 20 2020-0 No 20mg C [facility] mg mg 4-27 [facility] 00:00: - [facility] Bupivicaine Bupivicaine 2020-0 No 2.5mg [facility] [place] 4-27 [facility] 00:00: - [facility] Kenalog Kenalog 2020-0 No 40mg Common (Triamcinol (Triamcinol 4-27 S pirit one) one) 00:00: - [facility] Kenalog Kenalog 2020-0 No 40mg [facility] (Triamcinol (Triamcinol 4-27 S pirit one) one) 00:00: - [facility] 00 [facility] Hyalgan 20 Hyalgan 20 2020-0 No 20mg C ommon mg mg 4-27 [facility] 00:00: - [facility] 00 [facility] Bupivicaine Bupivicaine 2020-0 No 2.5mg [facility] [place] 4-27 [facility] 00:00: - [facility] 00 [facility] Kenalog Kenalog 2020-0 No 40mg Common (Triamcinol (Triamcinol 4-27 S pirit one) one) 00:00: - [facility] 00 [facility] Hyalgan 20 Hyalgan 20 2020-0 No 20mg C ommon mg mg -27 [facility] 00:00: - [facility] 00 [facility] Bupivicaine Bupivicaine 2020-0 No 2.5mg [facility] [place] 4-27 [facility] 00:00: - [facility] 00 [facility] Kenalog Kenalog 2020-0 No 40mg Common (Triamcinol (Triamcinol 4-27 S pirit one) one) 00:00: - [facility] 00 [facility] Hyalgan 20 Hyalgan 20 2020-0 No 20mg C ommon mg mg 4-27 [facility] 00:00: - [facility] 00 [facility] Bupivicaine Bupivicaine 2020-0 No 2.5mg [facility] [place] 4-27 [facility] 00:00: - [facility] 00 [facility] Kenalog Kenalog 2020-0 No 40mg Common (Triamcinol (Triamcinol 4-27 S pirit one) one) 00:00: - [facility] 00 [facility] Hyalgan 20 Hyalgan 20 2020-0 No 20mg C ommon mg mg 4-27 [facility] 00:00: - [facility] 00 [facility] Bupivicaine Bupivicaine 2020-0 No 2.5mg [facility] [place] 4-27 Spirit 00:00: - [facility] 00 [facility] Kenalog Kenalog 2020-0 No 40mg Common (Triamcinol (Triamcinol 4-27 S pirit one) one) 00:00: - [facility]I 00 [facility] Hyalgan 20 Hyalgan 20 2020-0 No 20mg C ommon mg mg 4-27 Spirit 00:00: - [facility]I 00 [facility] Bupivicaine Bupivicaine 2020-0 No 2.5mg Common [place] 4-27 Spirit 00:00: - [facility] 00 [facility] Kenalog Kenalog 2020-0 No 40mg Common (Triamcinol (Triamcinol 4-27 S pirit one) one) 00:00: - [facility]I 00 [facility] Hyalgan 20 Hyalgan 20 2020-0 No 20mg C ommon mg mg - Spirit 00:00: - [facility]I 00 [facility] Bupivicaine Bupivicaine 2020-0 No 2.5mg Common [place] - Spirit 00:00: - [facility]I 00 [facility] Kenalog Kenalog 0 No 40mg Common (Triamcinol (Triamcinol 4-27 S pirit one) one) 00:00: - [facility]I 00 [facility] Hyalgan 20 Hyalgan 20 2020-0 No 20mg C ommon mg mg - Spirit 00:00: - [facility]I 00 [facility] Bupivicaine Bupivicaine 2020-0 No 2.5mg Common [place] -27 Spirit 00:00: - [facility] 00 [facility] Kenalog Kenalog 2020-0 No 40mg Common (Triamcinol (Triamcinol 4-27 S pirit one) one) 00:00: - [facility]I 00 [facility] Hyalgan 20 Hyalgan 20 2020-0 No 20mg C ommon mg mg 4- Spirit 00:00: - [facility]I 00 [facility] Bupivicaine Bupivicaine 2020-0 No 2.5mg Common [place] 4-27 Spirit 00:00: - [facility] 00 [facility] Kenalog Kenalog 2020-0 No 40mg Common (Triamcinol (Triamcinol 4-27 S pirit one) one) 00:00: - [facility]I 00 [facility] Hyalgan 20 Hyalgan 20 2020-0 No 20mg C ommon mg mg -27 Spirit 00:00: - [facility]I 00 [facility] Bupivicaine Bupivicaine 2020-0 No 2.5mg Common [place] 4-27 Spirit 00:00: - [facility] 00 [facility] Kenalog Kenalog 2020-0 No 40mg Common (Triamcinol (Triamcinol 4-27 S pirit one) one) 00:00: - [facility]I 00 [facility] Hyalgan 20 Hyalgan 20 2020-0 No 20mg C ommon mg mg - Spirit 00:00: - [facility] 00 [facility] Bupivicaine Bupivicaine 2020-0 No 2.5mg Common [place] -27 Spirit 00:00: - [facility] 00 [facility] Kenalog Kenalog 2020-0 No 40mg Common (Triamcinol (Triamcinol 4-27 S pirit one) one) 00:00: - [facility]I 00 [facility] Hyalgan 20 Hyalgan 20 2020-0 No 20mg C ommon mg mg - Spirit 00:00: - [facility]I 00 [facility] Bupivicaine Bupivicaine 2020-0 No 2.5mg Common [place] Spirit 00:00: - [facility] 00 [facility] Kenalog Kenalog 2020-0 No 40mg Common (Triamcinol (Triamcinol 4-27 S pirit one) one) 00:00: - [facility]I 00 [facility] Hyalgan 20 Hyalgan 20 2020-0 No 20mg C ommon mg mg - Spirit 00:00: - [facility]I 00 [facility] Bupivicaine Bupivicaine 2020-0 No 2.5mg Common [place] 4-27 Spirit 00:00: - [facility] 00 [facility] Kenalog Kenalog 2020-0 No 40mg Common (Triamcinol (Triamcinol 4-27 S pirit one) one) 00:00: - [facility]I 00 [facility] Hyalgan 20 Hyalgan 20 2020-0 No 20mg C ommon mg mg -27 Spirit 00:00: - [facility]I 00 [facility] Bupivicaine Bupivicaine 2020-0 No Common [place] 4-27 Spirit 00:00: - [facility]I [facility] Kenalog Kenalog 2020-0 No 40mg Common (Triamcinol (Triamcinol 4-27 S pirit one) one) 00:00: - [facility]I 00 [facility] Hyalgan 20 Hyalgan 20 2020-0 No 20mg C ommon mg mg - Spirit 00:00: - [facility]I 00 [facility] Bupivicaine Bupivicaine 2020-0 No Common [place] 4-27 Spirit 00:00: - [facility]I 00 [facility] Kenalog Kenalog 2020-0 No 40mg Common (Triamcinol (Triamcinol 4-27 S pirit one) one) 00:00: - [facility]I 00 [facility] Hyalgan 20 Hyalgan 20 2020-0 No 20mg C ommon mg mg - Spirit 00:00: - CHI [facility] Bupivicaine Bupivicaine 2020-0 No Common [place] 4-27 Spirit 00:00: - [facility]I 00 [facility] Kenalog Kenalog 2020-0 No 40mg Common (Triamcinol (Triamcinol 4-27 S pirit one) one) 00:00: - [facility]I 00 [facility] Hyalgan 20 Hyalgan 20 2020-0 No 20mg C ommon mg mg - Spirit 00:00: - [facility]I 00 [facility] Bupivicaine Bupivicaine 2020-0 No 2.5mg Common [place] 4-27 Spirit 00:00: - [facility]I 00 [facility] Kenalog Kenalog 2020-0 No 40mg Common (Triamcinol (Triamcinol 4-27 S pirit one) one) 00:00: - CHI [facility] Hyalgan 20 Hyalgan 20 2020-0 No 20mg C ommon mg mg 4-27 Spirit 00:00: - [facility]I 00 [facility] Bupivicaine Bupivicaine 2020-0 No 2.5mg Common [place] 4-27 Spirit 00:00: - CHI [facility] Kenalog Kenalog 2020-0 No 40mg Common (Triamcinol (Triamcinol 4-27 S pirit one) one) 00:00: - [facility]I 00 [facility] Hyalgan 20 Hyalgan 20 2020-0 No 20mg C ommon mg mg 4-27 Spirit 00:00: - [facility]I 00 [facility] Bupivicaine Bupivicaine 2020-0 No 2.5mg Common [place] 4-27 Spirit 00:00: - [facility]I 00 [facility] Kenalog Kenalog 0 No 40mg Common (Triamcinol (Triamcinol 4-27 S pirit one) one) 00:00: - [facility]I 00 [facility] Hyalgan 20 Hyalgan 20 2020-0 No 20mg C ommon mg mg - Spirit 00:00: - [facility]I 00 [facility] Bupivicaine Bupivicaine 2020-0 No 2.5mg Common [place] -27 Spirit 00:00: - [facility]I 00 [facility] Kenalog Kenalog 0 No 40mg Common (Triamcinol (Triamcinol 4-27 S pirit one) one) 00:00: - [facility]I 00 [facility] Hyalgan 20 Hyalgan 20 2020-0 No 20mg C ommon mg mg - Spirit 00:00: - [facility]I 00 [facility] Bupivicaine Bupivicaine 2020-0 No 2.5mg Common [place] - Spirit 00:00: - [facility] 00 [facility] Kenalog Kenalog 0 No 40mg Common (Triamcinol (Triamcinol 4-27 S pirit one) one) 00:00: - [facility]I 00 [facility] Hyalgan 20 Hyalgan 20 2020-0 No 20mg C ommon mg mg - Spirit 00:00: - [facility]I 00 [facility] Bupivicaine Bupivicaine 2020-0 No 2.5mg Common [place] 4-27 Spirit 00:00: - [facility] 00 [facility] Kenalog Kenalog 2020-0 No 40mg Common (Triamcinol (Triamcinol 4-27 S pirit one) one) 00:00: - [facility]I 00 [facility] Hyalgan 20 Hyalgan 20 2020-0 No 20mg C ommon mg mg 4-27 Spirit 00:00: - CHI [facility] Bupivicaine Bupivicaine No 2.5mg Common [place] 4-27 Spirit 00:00: - CHI [facility] Kenalog Kenalog No 40mg Common (Triamcinol (Triamcinol 4-27 S pirit one) one) 00:00: - CHI [facility] Hyalgan 20 Hyalgan 20 No 20mg C ommon mg mg 27 Spirit 00:00: - CHI [facility] Bupivicaine Bupivicaine No 2.5mg Common [place] -27 Spirit 00:00: - CHI [facility] Kenalog Kenalog No 40mg Common (Triamcinol (Triamcinol 4-27 S pirit one) one) 00:00: - CHI [facility] Linzess 290 Yes 1{capsu Take 1 U nivers mcg cap 4-21 le} capsule by ity of 00:00: mouth as [place] 00 needed. MD Marry childers [facility] 290 Yes 1{capsu Take 1 U nivers mcg cap 4-21 le} capsule by ity of 00:00: mouth as [place] 00 needed. MD Marry childers [facility] 290 Yes 1{capsu Take 1 U nivers mcg cap 4-21 le} capsule by ity of 00:00: mouth as [place] 00 needed. MD Marry childers [facility] Mirtazapine Yes 15 mg = 1 M emoria 15 MG Oral 3-17 tab, PO, l Tablet 21:38: Bedtime, # Penelope nn [Remeron] 00 30 tab, 3 Refill(s), Pharmacy: [facility] #[id number], 149.86, cm, 06/06/20 15:47:00 CDT, Height, 89.091, kg, 06/06/20 15:47:00 CDT, Weight Mirtazapine Yes 15 mg = 1 M emoria 15 MG Oral 3-17 tab, PO, l Tablet 21:38: Bedtime, # Penelope nn [Remeron] 00 30 tab, 3 Refill(s), [id number], 149.86, cm, 06/06/20 15:47:00 CDT, Height, 89.091, kg, 06/06/20 15:47:00 CDT, Weight Mirtazapine 2021-0 Yes 15 mg = 1 M emoria 15 MG Oral 3-17 tab, PO, l Tablet 21:38: Bedtime, Erwin Penelope perez [Remeron] 00 30 tab, 3 Refill(s), [facility][id number], 149.86, cm, 06/06/20 15:47:00 CDT, Height, 89.091, kg, 06/06/20 15:47:00 CDT, Weight Mirtazapine 2021-0 Yes 15 mg = 1 M emoria 15 MG Oral 3-17 tab, PO, l Tablet 21:38: Bedtime, Erwin Penelope perez [Remeron] 00 30 tab, 3 Refill(s), [facility][id number], 149.86, cm, 06/06/20 15:47:00 CDT, Height, 89.091, kg, 06/06/20 15:47:00 CDT, Weight Mirtazapine 2021-0 Yes 15 mg = 1 M emoria 15 MG Oral 3-17 tab, PO, l Tablet 21:38: Bedtime, Erwin Reyesmaxine perez [Remeron] 00 30 tab, 3 Refill(s), [facility][id number], 149.86, cm, 06/06/20 15:47:00 CDT, Height, 89.091, kg, 06/06/20 15:47:00 CDT, Weight Mirtazapine 2021-0 Yes 15 mg = 1 M emoria 15 MG Oral 3-17 tab, PO, l Tablet 21:38: Bedtime, Erwin Reyesa nn [Remeron] 00 30 tab, 3 Refill(s), [facility][id number], 149.86, cm, 06/06/20 15:47:00 CDT, Height, 89.091, kg, 06/06/20 15:47:00 CDT, Weight pregabalin 0 Yes 50 mg, PO, M emoria 3-17 TID, 0 l 20:51: Refill(s) letrozole 2020-0 Yes 2.5 mg, Memor ia 3-17 PO, Daily, l 20:51: 0 Refill(s) pregabalin 2020-0 Yes 50 mg, PO, M emoria 3-17 TID, 0 l 20:51: Refill(s) letrozole 0 Yes 2.5 mg, Memor ia 3-17 PO, Daily, l 20:51: 0 Refill(s) pregabalin 2020-0 Yes 50 mg, PO, M emoria 3-17 TID, 0 l 20:51: Refill(s) letrozole 0 Yes 2.5 mg, Memor ia 3-17 PO, Daily, l 20:51: 0 Refill(s) pregabalin 0 Yes 50 mg, PO, M emoria 3-17 TID, 0 l 20:51: Refill(s) letrozole 0 Yes 2.5 mg, Memor ia 3-17 PO, Daily, l 20:51: 0 Refill(s) pregabalin 2020-0 Yes 50 mg, PO, M emoria 3-17 TID, 0 l 20:51: Refill(s) letrozole 0 Yes 2.5 mg, Memor ia 3-17 PO, Daily, l 20:51: 0 Refill(s) pregabalin 2020-0 Yes 50 mg, PO, M emoria 3-17 TID, 0 l 20:51: Refill(s) letrozole 2020-0 Yes 2.5 mg, Memor ia 3-17 PO, Daily, l 20:51: 0 Refill(s) Vitamin D3 2020-0 Yes 0 Memoria 3-17 Refill(s) l 20:50: Tramadol 2020-0 Yes 50 mg, PO, Mem oria 3-17 [...] 3-17 PRN, PRN l 20:50: Pain traMADol Yes Infiltratin 50mg Take 1 [facility] (ULTRAM) 50 2-26 g duct tablet (50 ity of mg tablet 00:00: carcinoma mg) by [place] ex of upper mouth MD outer every 6 Anderso quadrant of (six) n left female hours as Canc er breast needed for Center moderate pain. traMADol Yes Infiltratin 50mg Take 1 [facility] (ULTRAM) 50 2-26 g duct tablet (50 ity of mg tablet 00:00: carcinoma mg) by T ex of upper mouth MD outer every 6 Anderso quadrant of (six) n left female hours as Canc er breast needed for Center moderate pain. traMADol Yes Infiltratin 50mg Take 1 [facility] (ULTRAM) 50 2-26 g duct tablet (50 ity of mg tablet 00:00: carcinoma mg) by T ex of upper mouth MD outer every 6 Anderso quadrant of (six) n left female hours as Canc er breast needed for Center moderate pain. triamcinolo 2019-03- No Dermatitis, Apply Univers ne 04-14-08 not topically ity of (KENALOG) 00:00: 00:[place] ointment 00 :00 specified affected MD 0.1% area(s) Anderso twice n daily. [facility] prochlorper 2021- No Infiltratin 10mg Take 1 [facility] azine 10-16 07-08 g duct tablet (10 ity o f (COMPAZINE) 00:00: 00:00 carcinoma mg) by [place] 10 mg 00 :00 of upper mouth MD tablet outer every 6 Anderso quadrant of (six) n left female hours as Canc er breast needed for Center nausea or vomiting. lidocaine-p 2021- No Infiltratin Apply to [facility] rilocaine 10-16 03-30 g duct [place] of (EMLA) 00:00: 00:00 carcinoma h area 30 [place] 2.5-2.5% 00 :00 of upper to 45 MD cream outer minutes Anderso quadrant of prior to n left female port Cancer breast access as Center directed (topical anesthetic ). BusPIRone BusPIRone Yes Reema 1 tablet Common HCl HCl 6-10 [place] Spirit 00:00: - [facility]I 00 [facility] busPIRone busPIRone 2019- No 1{table [...] Take 5 mg U nivers (NORVASC) 5 4-15 06-30 by mouth ity of mg tablet 00:00: 00:00 daily. [place] [facility] Simvastatin Yes Reema 1 tablet Common 2-18 [place] in the Spirit 00:00: evening - [facility]I 00 [facility] metoprolol 0 2021- No 25mg Take 25 mg [facility] tartrate 2-18 -30 by mouth ity of (LOPRESSOR) 00:00: 00:[place] 25 mg 00 :00 daily. MD sherron childers [facility] Crestor Crestor Yes Reema 1 tablet Co mmon - [facility] Spirit 00:00: - [facility]I 00 [facility] Crestor 20 Crestor 20 No 1{table QD Crestor 20 MG MG 10-29 t} MG 00:00: 00 Crestor 20 Crestor 20 2018-0 No 1{table QD Crestor 20 MG MG 8-09 t} MG 00:00: 00 Crestor 20 Crestor 20 2018-0 No 1{table QD Crestor 20 MG MG 8-09 t} MG 00:00: 00 Crestor 20 Crestor 20 2018-0 No 1{table QD Crestor 20 MG MG 8-09 t} MG 00:00: 00 Crestor 20 Crestor 20 0 No 1{table QD Crestor 20 MG MG 8-09 t} MG 00:00: 00 Crestor 20 Crestor 20 2018-0 No 1{table QD Crestor 20 MG MG 8-09 t} MG 00:00: 00 Crestor 20 Crestor 20 No 1{table QD Crestor 20 MG MG 8-09 t} MG 00:00: 00 Crestor 20 Crestor 20 No 1{table QD Crestor 20 MG MG 8-09 t} MG 00:00: 00 Crestor 20 Crestor 20 0 No 1{table QD Crestor 20 MG MG 8-09 t} MG 00:00: 00 Crestor 20 Crestor 20 0 No 1{table QD Crestor 20 MG MG 8-09 t} MG 00:00: 00 Crestor 20 Crestor 20 0 No 1{table QD Crestor 20 MG MG 8-09 t} MG 00:00: 00 Zofran Zofran Yes Reema 1 tablet Comm on 8-05 [place] as needed Spiri t 00:00: for - CHI 00 nausea/vom [facility] Imitrex Imitrex Yes Reema as Common 8-05 [place] directed Spirit 00:00: - CHI 00 [facility] Zofran 4 MG Zofran 4 MG No Zofran 4 8-05 MG 00:00: 00 Imitrex 50 Imitrex 50 No Imitrex 50 MG MG 8-05 MG 00:00: 00 Zofran 4 MG Zofran 4 MG 2018- No Zofran 4 8-05 MG 00:00: 00 [...] MG 00:00: 00 Imitrex 50 Imitrex 50 0 No Imitrex 50 MG MG 8-05 MG 00:00: 00 Zofran 4 MG Zofran 4 MG 0 No Zofran 4 8-05 MG 00:00: 00 Imitrex 50 Imitrex 50 2018-0 No Imitrex 50 MG MG 8-05 MG 00:00: 00 Zofran 4 MG Zofran 4 MG 0 No Zofran 4 8-05 MG 00:00: 00 Imitrex 50 Imitrex 50 0 No Imitrex 50 MG MG 8-05 MG 00:00: 00 Zofran 4 MG Zofran 4 MG No Zofran 4 8-05 MG 00:00: 00 Zofran 4 MG Zofran 4 MG 0 No Zofran 4 8-05 MG 00:00: 00 Imitrex 50 Imitrex 50 0 No Imitrex 50 MG MG 8-05 MG 00:00: 00 Zofran 4 MG Zofran 4 MG 2018-0 No Zofran 4 8-05 MG 00:00: 00 Imitrex 50 Imitrex 50 20190 No Imitrex 50 MG MG 8-05 MG 00:00: 00 Imitrex 50 Imitrex 50 2018-0 No Imitrex 50 MG MG 8-05 MG 00:00: 00 Zofran 4 MG [place] 4 [place] [address] No Zofran 4 8-05 MG 00:00: 00 Imitrex 50 Imitrex 50 2019-0 No Imitrex 50 MG MG 8-05 MG 00:00: 00 Zofran 4 MG Zofran 4 MG 0 No Zofran 4 8-05 MG 00:00: 00 Wellbutrin Wellbutrin 2017-0 Yes Reema 1 tablet Common XL XL 4-20 [place] in the [facility] 00:00: morning - [facility] 00 [facility] Wellbutrin Wellbutrin 2018-0 No 1{table QD Wellbutrin XL 150 MG XL 150 MG 4-20 t_in_th XL 150 MG 00:00: e_[email or web address] 00 ng} Wellbutrin Wellbutrin 2018-0 No 1{table QD Wellbutrin XL 150 MG [...] MG 00:00: e_morni 00 ng} Wellbutrin Wellbutrin 2018-0 No 1{table QD Wellbutrin XL 150 MG XL 150 MG 4-20 t_in_th XL 150 MG 00:00: e_morni 00 ng} Wellbutrin Wellbutrin 2018-0 No 1{table QD Wellbutrin XL 150 MG XL 150 MG 4-20 t_in_th XL 150 MG 00:00: e_morni 00 ng} Wellbutrin Wellbutrin 2018-0 No 1{table QD Wellbutrin XL 150 MG XL 150 MG 4-20 t_in_th XL 150 MG 00:00: e_morni 00 ng} Wellbutrin Wellbutrin 2018-0 No 1{table QD Wellbutrin XL 150 MG XL 150 MG 4-20 t_in_th XL 150 MG 00:00: e_morni 00 ng} Wellbutrin Wellbutrin 2018-0 No 1{table QD Wellbutrin XL 150 MG XL 150 MG 4-20 t_in_th XL 150 MG 00:00: e_morni 00 ng} Wellbutrin Wellbutrin 2018-0 No 1{table QD Wellbutrin XL 150 MG XL 150 MG 4-20 t_in_th XL 150 MG 00:00: e_morni 00 ng} Wellbutrin Wellbutrin 2018-0 No 1{table QD Wellbutrin XL 150 MG XL 150 MG 4-20 t_in_th XL 150 MG 00:00: e_[email or web address] 00 ng} levothyroxi 2021- No 50ug Take 50 Un [place] ne 7-17 03-30 mcg by ity of (SYNTHROID, 00:00: 00:[place] LEVOTHROID[place] 00 :00 daily. 50 mcg Anderso tablet n [facility] Phenergan 2012-03 No [place]aja 12.5 mg, Me moria 0-16 Phelpsmargo Diaz Route: l 18:21: IVPB, Rector 00 ONCE, Dosing Weight 78.636, kg, PRN Nausea & Vomiting, Start date: 01/05/13 13:21:00 Phenergan 2012-03 No [place] 12.5 mg, Me moria 0-16 Phelps Emily Route: l 18:21: IVPB, [place] 00 ONCE, Dosing Weight 78.636, kg, PRN Nausea & Vomiting, Start date: 01/05/13 13:21:00 Phenergan 2012-03 No [place] 12.5 mg, Me moria 0-16 Phelpsmargo Diaz Route: l 18:21: IVPB, Rector 00 ONCE, Dosing Weight 78.636, kg, PRN Nausea & Vomiting, Start date: 01/05/13 13:21:00 Phenergan 2012-03 No [place] 12.5 mg, Me moria 0-16 Phelps Emily Route: l 18:21: IVPB, [place] 00 ONCE, Dosing Weight 78.636, kg, PRN Nausea & Vomiting, Start date: 01/05/13 13:21:00 Phenergan 2012-03 No [place] 12.5 mg, Me moria 0-16 Phelpsmargo Diaz Route: l 18:21: IVPB, Rector 00 ONCE, Dosing Weight 78.636, kg, PRN Nausea & Vomiting, Start date: 01/05/13 13:21:00 Phenergan 2012-03 No Haja 12.5 mg, Me moria 0-16 Phelps Emily Route: l 18:21: IVPB, [place] 00 ONCE, Dosing Weight 78.636, kg, PRN Nausea & Vomiting, Start date: 01/05/13 13:21:00 Rand[place] 2012-03 No Haja 1 tab, Memoria 10/325 oral 0-16 Phelpsmargo Diaz Route: PO, l tablet 17:55: Dosing Rector 00 Weight 78.636, kg, ONCE, Start date: 01/05/13 12:55:00, Stop date: 01/05/13 12:55:00 Randle 2012-03 No Haja 1 tab, Memoria 10/325 oral 0-16 Phelps Diaz Route: PO, l tablet 17:55: Dosing [place] 00 Weight 78.636, kg, ONCE, Start date: 01/05/13 12:55:00, Stop date: 01/05/13 12:55:00 Randle 2012-03 No Haja 1 tab, Memoria 10/325 oral 0-16 Phelps Diaz Route: PO, l tablet 17:55: Dosing Rector 00 Weight 78.636, kg, ONCE, Start date: 01/05/13 12:55:00, Stop date: 01/05/13 12:55:00 Randle 2012-03 No Haja 1 tab, Memoria 10/325 oral 0-16 Phelps Diaz Route: PO, l tablet 17:55: Dosing [place] 00 Weight 78.636, kg, ONCE, Start date: 01/05/13 12:55:00, Stop date: 01/05/13 12:55:00 Randle 2012-03 No Haja 1 tab, Memoria 10/325 oral 0-16 Phelps Diaz Route: PO, l tablet 17:55: Dosing Rector 00 Weight 78.636, kg, ONCE, Start date: 01/05/13 12:55:00, Stop date: 01/05/13 12:55:00 Randle 2012-03 No Haja 1 tab, Memoria 10/325 oral 0-16 Phelps Diaz Route: PO, l tablet 17:55: Dosing Rector 00 Weight 78.636, kg, ONCE, Start date: 01/05/13 12:55:00, Stop date: 01/05/13 12:55:00 [facility] 2012-03 No Haja 1,000 mg, Mem oria 0-16 Phelps Diaz Route: IV, l 17:10: Drug form: [place] 00 INJ, ONCE, Dosing Weight 78.636, kg, PRN Pain, for > or = 50 kg, Start date: 01/05/13 12:10:00 [facility] 2012-03 No Haja 1,000 mg, Mem oria 0-16 Phelps Emily Route: IV, l 17:10: Drug form: [place] 00 INJ, ONCE, Dosing Weight 78.636, kg, PRN Pain, for > or = 50 kg, Start date: 01/05/13 12:10:00 [facility] 2012-03 No Haja 1,000 mg, Mem oria 0-16 Phelps Emily Route: IV, l 17:10: Drug form: Rector 00 INJ, ONCE, Dosing Weight 78.636, kg, PRN Pain, for > or = 50 kg, Start date: 01/05/13 12:10:00 [facility] 2012-03 No Haja 1,000 mg, Mem oria 0-16 Lenin Diaz Route: IV, l 17:10: Drug form: Rector 00 INJ, ONCE, Dosing Weight 78.636, kg, PRN Pain, for > or = 50 kg, Start date: 01/05/13 12:10:00 [facility] 2012-03 No Ahja 1,000 mg, Mem oria 0-16 Lenin Diaz Route: IV, l 17:10: Drug form: Rector 00 INJ, ONCE, Dosing Weight 78.636, kg, PRN Pain, for > or = 50 kg, Start date: 01/05/13 12:10:00 [facility] 2012-03 No Haja 1,000 mg, Mem oria 0-16 Phelpsmargo Diaz Route: IV, l 17:10: Drug form: Rector 00 INJ, ONCE, Dosing Weight 78.636, kg, PRN Pain, for > or = 50 kg, Start date: 01/05/13 12:10:00 [place] [id number] 2012-03 Yes Dc Casimiro 1 tab, PO, Memoria oral tablet 0-16 Hinh Q4-6H, l 17:04: PRN, 30 Rector 32 tab, as needed for pain, Substituti on Allowed, Maintenanc e Randle 5325 2012-03 Yes Dc Casimiro 1 tab, PO, Memoria oral tablet 0-16 Hinh Q4-6H, l 17:04: PRN, 30 Rector 32 tab, as needed for pain, Substituti on Allowed, Maintenanc e Randle 5325 2012-03 Yes Dc Casimiro 1 tab, PO, Memoria oral tablet 0-16 Hinh Q4-6H, l 17:04: PRN, 30 Rector 32 tab, as needed for pain, Substituti on Allowed, Maintenanc e Randle 2012-03 Yes Dc Arandauc 1 tab, PO, Memoria oral tablet 0-16 Hinh Q4-6H, l 17:04: PRN, 30 [place] 32 tab, as needed for pain, Substituti on Allowed, Maintenanc e Randle 2012-03 Yes Dc Arandauc 1 tab, PO, Memoria oral tablet 0-16 Hinh Q4-6H, l 17:04: PRN, 30 [place] 32 tab, as needed for pain, Substituti on Allowed, Maintenanc e Randle 2012-03 Yes Dc Arandauc 1 tab, PO, Memoria oral tablet 0-16 Hinh Q4-6H, l 17:04: PRN, 30 Rector 32 tab, as needed for pain, Substituti on Allowed, Maintenanc e hydrALAZINE 2012-03 No Dc 5 mg, Stu dipak 0-16 Shun-Hsien Route: l 16:55: Felder IVP, Rector 00 Q5Min, Dosing Weight 78.636, kg, PRN Elevated BP, Start date: 01/05/13 11:55:00, Duration: 4 doses or times, Stop date: Limited # of times metoprolol 2012-03 No Dc 1 mg, Memor ia 0-16 Shun-Hsien Route: l 16:55: Felder IVP, Rector 00 Q5Min, Dosing Weight 78.636, kg, PRN Elevated BP, Start date: 01/05/13 11:55:00, Duration: 5 doses or times, Stop date: Limited # of times labetalol 2012-03 No Dc 5 mg, Memori a 0-16 Shun-Hsien Route: l 16:55: Felder IVP, Rector 00 Q5Min, Dosing Weight 78.636, kg, PRN Elevated BP, Start date: 01/05/13 11:55:00, Duration: 5 doses or times, Stop date: Limited # of times enalapril 2012-03 No Dc 0.625 mg, Me moria 0-16 Shun-Hsien Route: l 16:55: Felder IVP, [place] 00 Q5Min, Dosing Weight 78.636, kg, PRN Elevated BP, Start date: 01/05/13 11:55:00, Duration: 4 doses or times, Stop date: Limited # of times morphine 2012-03 No Dc 2 mg, Memoria Sulfate 0-16 Shun-Hsien Route: l 16:55: Felder IVP, [place] 00 Q5Min, Dosing Weight 78.636, kg, PRN Pain Score 4-6, Start date: 01/05/13 11:55:00, Duration: 5 doses or times, Stop date: Limited # of times hydromorpho 2012-03 No Dc 0.5 mg, Me moria ne 0-16 Shun-Hsien Route: l 16:55: Felder IVP, Rector 00 Q5Min, Dosing Weight 78.636, kg, PRN [...] Shun-Hsien Route: l 16:55: Felder IVP, Drug Rector 00 form: INJ, PRN, Dosing Weight 78.636, kg, PRN Itching, Start date: 01/05/13 11:55:00, Duration: 30 day, Stop date: 02/04/13 10:54:00 promethazin 2012-03 No Dc 6.25 mg, M emoria e 0-16 [facility]un[facility] Route: l 16:55: Felder IVPB, Wayne 00 ONCE, Dosing Weight 78.636, kg, PRN Nausea & Vomiting, Start date: 01/05/13 11:55:00 flumazenil 2012-03 No Peter 0.2 mg, Mem oria 0-16 Shun-Hsien Route: l 16:55: Felder IVP, PRN, Rector 00 Dosing Weight 78.636, kg, PRN Benzodiaze pine Reversal, Initial dose, Start date: 01/05/13 11:55:00, Duration: 30 day, Stop date: 02/04/13 10:54:00 naloxone 2012-03 No Peter 0.04 mg, Stu dipak 0-16 Shun-Hsien Route: l 16:55: Felder IVP, Rector 00 Q2MIN, Dosing Weight 78.636, kg, PRN [...] Limited # of times enalapril 2012-03 No Dc 0.625 mg, Me moria 0-16 Shun-Hsien Route: l 16:55: Felder IVP, Wayne 00 Q5Min, Dosing Weight 78.636, kg, PRN Elevated BP, Start date: 01/05/13 11:55:00, Duration: 4 doses or times, Stop date: Limited # of times morphine 2012-03 No Dc 2 mg, Memoria Sulfate 0-16 Shun-Hsien Route: l 16:55: Felder IVP, Rector 00 Q5Min, Dosing Weight 78.636, kg, PRN Pain Score 4-6, Start date: 01/05/13 11:55:00, Duration: 5 doses or times, Stop date: Limited # of times hydromorpho 2012-03 No Dc 0.5 mg, Me moria ne 0-16 Shun-Hsien Route: l 16:55: Felder IVP, Rector 00 Q5Min, Dosing Weight 78.636, kg, PRN Pain Score 7-10, Start date: 01/05/13 11:55:00, Duration: 5 doses or times, Stop date: Limited # of times dexamethaso 2012-03 No Peter 4 mg, Stu dipak ne 0-16 Shun-[facility]ien Route: l 16:55: Felder IVP, ONCE, Raheem n 00 Dosing Weight 78.636, kg, PRN Nausea & Vomiting, Start date: 01/05/13 11:55:00 ondansetron 2012-03 No Peter 4 mg, Stu dipak 0-16 Shun-[facility]ien Route: l 16:55: Felder IVP, ONCE, Raheem n 00 Dosing Weight 78.636, kg, PRN Nausea & Vomiting, Start date: 01/05/13 11:55:00 diphenhydrA 2012-03 No Dc 12.5 mg, M emoria MINE 0-16 Shun-[facility]ien Route: l 16:55: Felder IVP, Drug Wayne 00 form: INJ, PRN, Dosing Weight 78.636, kg, PRN Itching, Start date: 01/05/13 11:55:00, Duration: 30 day, Stop date: 02/04/13 10:54:00 promethazin 2012-03 No Peter 6.25 mg, M emoria e 0-16 Shun-[facility]ien Route: l 16:55: Felder IVPB, Wayne 00 ONCE, Dosing Weight 78.636, kg, PRN Nausea & Vomiting, Start date: 01/05/13 11:55:00 flumazenil 2012-03 No Peter 0.2 mg, Mem oria 0-16 Shun-Hsien Route: l 16:55: Felder IVP, PRN, Rector 00 Dosing Weight 78.636, kg, PRN Benzodiaze [...] Limited # of times labetalol 2012-03 No Dc 5 mg, Memori a 0-16 Shun-Hsien Route: l 16:55: Felder IVP, Rector 00 Q5Min, Dosing Weight 78.636, kg, PRN [...] Limited # of times morphine 2012-03 No Dc 2 mg, Memoria Sulfate 0-16 Shun-Hsien Route: l 16:55: Felder IVP, Rector 00 Q5Min, Dosing Weight 78.636, kg, PRN Pain Score 4-6, Start date: 01/05/13 11:55:00, Duration: 5 doses or times, Stop date: Limited # of times hydromorpho 2012-03 No Dc 0.5 mg, Me moria ne 0-16 Shun-Hsien Route: l 16:55: Felder IVP, Wayne 00 Q5Min, Dosing Weight 78.636, kg, PRN Pain Score 7-10, Start date: 01/05/13 11:55:00, Duration: 5 doses or times, Stop date: Limited # of times dexamethaso 2012-03 No Dc 4 mg, Stu diapk ne 0-16 Shun-Hsien Route: l 16:55: Felder [...] Shun-Hsien Route: l 16:55: Felder IVP, Drug Wayne 00 form: INJ, PRN, Dosing Weight 78.636, kg, PRN Itching, Start date: 01/05/13 11:55:00, Duration: 30 day, Stop date: 02/04/13 10:54:00 promethazin 2012-03 No Dc 6.25 mg, Manuel emoria e 0-16 Shun-Hsien Route: l 16:55: Felder IVPB, Rector 00 ONCE, Dosing Weight 78.636, kg, PRN [...] 0-16 Shun-Hsien Route: l 16:55: Felder IVP, Rector 00 Q2MIN, Dosing Weight 78.636, kg, PRN Narcotic Reversal, Start date: 01/05/13 11:55:00, Duration: 8 doses or times, Stop date: Limited # of times meperidine 2012-03 No Dc 12.5 mg, Me moria 0-16 Shun-Hsien Route: l 16:55: Felder IVP, Rector 00 Q30Min, Dosing Weight 78.636, kg, PRN Other -See Comment, For shivering, Start date: 01/05/13 11:55:00, Duration: 2 doses or times, Stop date: Limited # of times hydrALAZINE 2012-03 No Dc 5 mg, Stu dipak 0-16 Shun-Hsien Route: l 16:55: Felder IVP, Rector 00 Q5Min, Dosing Weight 78.636, kg, PRN Elevated BP, Start date: 01/05/13 11:55:00, Duration: 4 doses or times, Stop date: Limited # of times metoprolol 2012-03 No Peter 1 mg, Memor ia 0-16 Shun-Hsien Route: l 16:55: Felder IVP, Rector 00 Q5Min, Dosing Weight 78.636, kg, PRN Elevated BP, Start date: 01/05/13 11:55:00, Duration: 5 doses or times, Stop date: Limited # of times labetalol 2012-03 No Peter 5 mg, Memori a 0-16 Shun-Hsien Route: l 16:55: Felder IVP, Rector 00 Q5Min, Dosing Weight 78.636, kg, PRN Elevated BP, Start date: 01/05/13 11:55:00, Duration: 5 doses or times, Stop date: Limited # of times hydrALAZINE 2012-03 No Peter 5 mg, Stu dipak 0-16 Shun-Hsien Route: l 16:55: Felder IVP, Rector 00 Q5Min, Dosing Weight 78.636, kg, PRN [...] Limited # of times enalapril 2012-03 No Dc 0.625 mg, Me moria 0-16 Shun-Hsien Route: l 16:55: Felder IVP, Wayne 00 Q5Min, Dosing Weight 78.636, kg, PRN Elevated BP, Start date: 01/05/13 11:55:00, Duration: 4 doses or times, Stop date: Limited # of times morphine 2012-03 No Dc 2 mg, Memoria Sulfate 0-16 Shun-Hsien Route: l 16:55: Felder IVP, Wayne 00 Q5Min, Dosing Weight 78.636, kg, PRN Pain Score 4-6, Start date: 01/05/13 11:55:00, Duration: 5 doses or times, Stop date: Limited # of times hydromorpho 2012-03 No Dc 0.5 mg, Me moria ne 0-16 Shun-Hsien [...] Shun-Hsien Route: l 16:55: Felder IVP, Drug Rector 00 form: INJ, PRN, Dosing Weight 78.636, kg, PRN Itching, Start date: 01/05/13 11:55:00, Duration: 30 day, Stop date: 02/04/13 10:54:00 promethazin 2012-03 No Dc 6.25 mg, M emoria e 0-16 Shun-Hsien Route: l 16:55: Felder IVPB, Rector 00 ONCE, Dosing Weight 78.636, kg, PRN [...] Limited # of times morphine 2012-03 No Dc 2 mg, Memoria Sulfate 0-16 Shun-Hsien Route: l 16:55: Felder IVP, Wayne 00 Q5Min, Dosing Weight 78.636, kg, PRN Pain Score 4-6, Start date: 01/05/13 11:55:00, Duration: 5 doses or times, Stop date: Limited # of times hydromorpho 2012-03 No Peter 0.5 mg, Me moria ne 0-16 Shun-Hsien Route: l 16:55: Felder IVP, Rector 00 Q5Min, Dosing Weight 78.636, kg, PRN [...] Shun-Hsien Route: l 16:55: Felder IVP, Drug Wayne 00 form: INJ, PRN, Dosing Weight 78.636, kg, PRN Itching, Start date: 01/05/13 11:55:00, Duration: 30 day, Stop date: 02/04/13 10:54:00 hydrALAZINE 2012-03 No Dc 5 mg, Stu dpiak 0-16 Shun-Hsien Route: l 16:55: Felder IVP, Rector 00 Q5Min, Dosing Weight 78.636, kg, PRN Elevated BP, Start date: 01/05/13 11:55:00, Duration: 4 doses or times, Stop date: Limited # of times promethazin 2012-03 No Dc 6.25 mg, M emoria e 0-16 Shun-Hsien Route: l 16:55: Felder IVPB, Rector 00 ONCE, Dosing Weight 78.636, kg, PRN Nausea & Vomiting, Start date: 01/05/13 11:55:00 metoprolol 2012-03 No Dc 1 mg, Memor ia 0-16 Shun-Hsien Route: l 16:55: Felder IVP, Wayne 00 Q5Min, Dosing Weight 78.636, kg, PRN Elevated BP, Start date: 01/05/13 11:55:00, Duration: 5 doses or times, Stop date: Limited # of times labetalol 2012-03 No Dc 5 mg, Memori a 0-16 Shun-Hsien Route: [...] Limited # of times morphine 2012-03 No Dc 2 mg, Memoria Sulfate 0-16 Shun-Hsien Route: [...] Start date: 01/05/13 11:55:00 diphenhydrA 2012-03 No Peter 12.5 mg, M emoria MINE 0-16 Shun-Hsien Route: l 16:55: Felder IVP, Drug Wayne 00 form: INJ, PRN, Dosing Weight 78.636, kg, PRN Itching, Start date: 01/05/13 11:55:00, Duration: 30 day, Stop date: 02/04/13 10:54:00 promethazin 2012-03 No Peter 6.25 mg, Manuel rosado e 0-16 Shun-Hsien Route: l 16:55: Felder IVPB, Rector 00 ONCE, Dosing Weight 78.636, kg, PRN Nausea & Vomiting, Start date: 01/05/13 11:55:00 flumazenil 2012-03 No Peter 0.2 mg, Mem oria 0-16 Shun-Hsien Route: l 16:55: Felder IVP, PRN, Wayne 00 Dosing Weight 78.636, kg, PRN Benzodiaze pine Reversal, Initial dose, Start date: 01/05/13 11:55:00, Duration: 30 day, Stop date: 02/04/13 10:54:00 flumazenil 2012-03 No Peter 0.2 mg, Mem oria 0-16 Shun-Hsien Route: l 16:55: Felder IVP, PRN, Rector 00 Dosing Weight 78.636, kg, PRN Benzodiaze pine Reversal, Initial dose, Start date: 01/05/13 11:55:00, Duration: 30 day, Stop date: 02/04/13 10:54:00 naloxone 2012-03 No Peter 0.04 mg, Stu dipak 0-16 Shun-Hsien Route: l 16:55: Felder IVP, Rector 00 Q2MIN, Dosing Weight 78.636, kg, PRN [...] times, Stop date: Limited # of times naloxone 2012-03 No Peter 0.04 mg, Stu dipak 0-16 Shun-Hsien Route: l 16:55: Felder IVP, Rector 00 Q2MIN, Dosing Weight 78.636, kg, PRN Narcotic Reversal, Start date: 01/05/13 11:55:00, Duration: 8 doses or times, Stop date: Limited # of times meperidine 2012-03 No Dc 12.5 mg, Me moria 0-16 Shun-Hsien Route: l 16:55: Felder IVP, Rector 00 Q30Min, Dosing Weight 78.636, kg, PRN Other -See Comment, For shivering, Start date: 01/05/13 11:55:00, Duration: 2 doses or times, Stop date: Limited # of times cefazolin 2012-03 No Dc Casimiro 2 gm, M emoria 0-16 Hinh Route: l 13:34: IVPB, Rector 00 ONCE, Dosing Weight 78.636, kg, Start date: 01/05/13 8:34:00, Stop date: 01/05/13 8:34:00 Cipro I.V. 2012-03 No Dc Casimiro 400 mg, Memoria 400 mg/200 0-16 Hinh Route: l mL 13:34: IVPB, Rector intravenous 00 ONCE, solution Dosing Weight 78.636, [...] emoria 0-16 Hinh Route: l 13:34: IVPB, Rector 00 ONCE, Dosing Weight 78.636, kg, Start date: 01/05/13 8:34:00, Stop date: 01/05/13 8:34:00 Cipro I.V. 2012-03 No Peter Casimiro 400 mg, Memoria 400 mg/200 0-16 Hinh Route: l mL 13:34: IVPB, Wayne intravenous 00 ONCE, solution Dosing Weight 78.636, kg, Start date: 01/05/13 8:34:00, Stop date: 01/05/13 8:34:00 cefazolin 2012-03 No Peter Casimiro 2 gm, M emoria 0-16 Hinh Route: l 13:34: IVPB, Rector 00 ONCE, Dosing Weight 78.636, kg, Start date: 01/05/13 8:34:00, Stop date: 01/05/13 8:34:00 Cipro I.V. 2012-03 No Peter Casimiro 400 mg, Memoria 400 mg/200 0-16 Hinh Route: l mL 13:34: IVPB, Rector intravenous 00 ONCE, solution Dosing Weight 78.636, kg, Start date: 01/05/13 8:34:00, Stop date: 01/05/13 8:34:00 cefazolin 2012-03 No Peter Casimiro 2 gm, M emoria 0-16 Hinh Route: l 13:34: IVPB, Rector 00 ONCE, Dosing Weight 78.636, kg, Start date: 01/05/13 8:34:00, Stop date: 01/05/13 8:34:00 Cipro I.V. 2012-03 No Peter Casimiro 400 mg, Memoria 400 mg/200 0-16 Hinh Route: l mL 13:34: IVPB, Wayne intravenous 00 ONCE, solution Dosing Weight 78.636, kg, Start date: 01/05/13 8:34:00, Stop date: 01/05/13 8:34:00 cefazolin 2012-03 No Peter Casimiro 2 gm, M emoria 0-16 Hinh Route: l 13:34: IVPB, Rector 00 ONCE, Dosing Weight 78.636, kg, Start date: 01/05/13 8:34:00, Stop date: 01/05/13 8:34:00 Cipro I.V. 2012-03 No Peter Casimiro 400 mg, Memoria 400 mg/200 0-16 [...] 8:31:00 Lactated 2012-03 No Denny 1,000 mL, Or moria Ringers 0-16 Elie Rate: 25 l Injection 13:32: Dominguez ml/hr, Herm flex IV 1000 mL 00 Infuse over: 40 hr, Route: IV, Dosing Weight 78.636 kg, Total Volume: 1,000, Start date: 01/05/13 8:32:00, Duration: 30 day, Stop date: 02/04/13 8:31:00 biotin 2012-03 Yes PO, Daily, Memor ia 0-09 Substituti l 19:35: on Allowed Rector 39 biotin 2012-03 Yes PO, Daily, Memor ia 0-09 Substituti l 19:35: on Allowed Rector 39 biotin 2012-03 Yes PO, Daily, Memor ia 0-09 Substituti l 19:35: on Allowed Rector 39 biotin 2012-03 Yes PO, Daily, Memor ia 0-09 Substituti l 19:35: on Allowed Rector 39 biotin 2012-03 Yes PO, Daily, Memor ia 0-09 Substituti l 19:35: on Allowed Wayne 39 biotin 2012-03 Yes PO, Daily, Memor [...] tablet 0-09 tab, PO, l 19:35: Bedtime, Rector 20 PRN, for sleep, Substituti on Allowed, TAB Ambien 5 mg 2012-03 Yes 5 mg, 1 Mem oria oral tablet 0-09 tab, PO, l 19:35: Bedtime, Wayne 20 PRN, for sleep, Substituti on Allowed, TAB Ambien 5 mg 2012-03 Yes 5 mg, 1 Mem oria oral tablet 0-09 tab, PO, l 19:35: Bedtime, Rector 20 PRN, for sleep, Substituti on Allowed, TAB Linzess 2012-03 Yes PO, Daily, Stu dipak 0-09 Substituti l 19:31: on Allowed Rector 43 Linzess 2012-03 Yes PO, Daily, Stu dipak 0-09 Substituti l 19:31: on Allowed Wayne 43 Linzess 2012-03 Yes PO, Daily, Stu dipak 0-09 Substituti l 19:31: on Allowed Wayne 43 Linzess 2012-03 Yes PO, Daily, Stu dipak 0-09 Substituti l 19:31: on Allowed Rector 43 Linzess 2012-03 Yes PO, Daily, Stu dipak 0-09 Substituti l 19:31: on Allowed Rector 43 Linzess 2012-03 Yes PO, Daily, Stu [...] tab, PO, l tablet 19:30: Daily, 30 Raheme childers 27 tab, Substituti on Allowed, TAB Lipitor 40 2012-03 Yes 40 mg, 1 Mem oria mg oral 0-09 tab, PO, l tablet 19:30: Daily, 30 Raheem childers 27 tab, Substituti on Allowed, TAB Lipitor 40 2012-03 Yes 40 mg, 1 Mem oria mg oral 0-09 tab, PO, l tablet 19:30: Daily, 30 Raheem n 27 tab, Substituti on Allowed, TAB Lipitor 40 2012-03 Yes 40 mg, 1 Mem oria mg oral 0-09 tab, PO, l tablet 19:30: Daily, 30 Raheem n 27 tab, Substituti on Allowed, TAB Lipitor 40 2012-03 Yes 40 mg, 1 Mem oria mg oral 0-09 tab, PO, l tablet 19:30: Daily, 30 Raheem n 27 tab, Substituti on Allowed, TAB Lipitor 40 2012-03 Yes 40 mg, 1 Mem oria mg oral 0-09 tab, PO, l tablet 19:30: Daily, 30 Raheem n 27 tab, Substituti on Allowed, TAB BusPIRone BusPIRone Yes Reema 1 tablet Common HCl HCl Millender prn Spirit anxiety - [facility] Ambien Ambien Yes Reema 1 tablet Common Millender at bedtime Spir it as needed - [facility] for sleep [facility] Lipitor Lipitor Yes Reema 1 tablet Comm on Millender in evening Spir it - [facility] Synthroid Synthroid Yes Reema 1 tablet Common Millender on an [facility] empty - [facility] stomach in [facility] Norvasc Norvasc Yes Reema 1 tablet Comm on Millender [facility] Ultram Ultram Yes Reema 1 tablet Common Millender as needed [facility] Gabapentin Gabapentin Yes Reema 1 capsule Common Millender before Spirit bedtime [facility] Lisinopril Lisinopril Yes Reema 1 tablet Common Millender [facility] Metoprolol Metoprolol Yes Reema 1 tablet Common Tartrate Tartrate Millender with food [facility] Metformin Metformin Yes Reema 1 tablet Common HCl HCl Millender [facility] Protonix Protonix Yes Reema 1 tablet Co mmon Millender [facility] Vitamin D3 Vitamin D3 Yes Reema 1 tablet Common Millender [facility] Amitriptyli Amitriptyli Yes Reema 1 tablet Common ne HCl ne HCl Millender at bedtime [facility] Zolpidem Zolpidem Yes Reema 1 tablet Co mmon Tartrate Tartrate Millender at bedtime [facility] Topamax Topamax Yes Reema 1 tablet Comm on Millender at bedtime Spir it for - [facility] migraines [facility] HydrOXYzine HydrOXYzine Yes Reema 1 tablet Common HCl HCl Millender as needed [facility] Belsomra Belsomra Yes Reema 1 tablet Co mmon Millender at bedtime Spir it as needed [facility] Trazodone Trazodone Yes Reema 1 tablet Common HCl HCl Millender at bedtime Spir it [facility] Pantoprazol Pantoprazol Yes Reema 1 tablet Common e Sodium e Sodium [facility] Letrozole Letrozole No 1{table QD Letrozole [...] ROthiazide 10-12.5 MG 10-12.5 MG 10-12.5 MG Methocarbam Methocarbam No Methocarba ol ol mol Atorvastati Atorvastati No QD Atorvastat n Calcium n Calcium in Calcium 10 MG 10 MG 10 MG Mounjaro Mounjaro No Mounjaro Synvisc 16 Synvisc 16 No Synvisc 16 MG/2ML MG/2ML MG/2ML traMADol traMADol No 1{table QD traMADol HCl 50 MG HCl 50 MG t_as_ne HCl 50 MG eded} Lisinopril- Lisinopril- No 1{table QD Lisinopril hydroCHLORO hydroCHLORO t} -hydroCHLO thiazide thiazide ROthiazide 10-12.5 MG 10-12.5 MG 10-12.5 MG Mounjaro 10 Mounjaro 10 No Mounjaro MG/0.5ML MG/0.5ML 10 MG/0.5ML Letrozole Letrozole No 1{table QD Letrozole 2.5 MG 2.5 MG t} 2.5 MG Synvisc 16 Synvisc 16 No Synvisc 16 MG/2ML MG/2ML MG/2ML Pantoprazol Pantoprazol No 1{table QD Pantoprazo e Sodium 40 e Sodium 40 t} le Sodium MG MG 40 MG Linzess 290 Linzess 290 No Linzess mcg mcg 290 mcg Medrol Medrol No Medrol (Kamran) (Kamran) (Kamran) Pregabalin Pregabalin No 1{capsu BID Pregabalin 75 MG 75 MG le} 75 MG Atorvastati Atorvastati No 1{table QD Atorvastat [...] 2.5 MG 2.5 MG t} 2.5 MG Methocarbam Methocarbam No Methocarba ol ol mol Medrol Medrol No Medrol (Kamran) (Kamran) (Kamran) Atorvastati Atorvastati No QD Atorvastat n Calcium n Calcium in Calcium 10 MG 10 MG 10 MG Mounjaro 10 Mounjaro 10 No Mounjaro MG/0.5ML MG/0.5ML 10 MG/0.5ML Mounjaro Mounjaro No Mounjaro Linzess 290 Linzess 290 No Linzess mcg mcg 290 mcg Lisinopril- Lisinopril- No 1{table QD Lisinopril hydroCHLORO hydroCHLORO t} -hydroCHLO thiazide thiazide ROthiazide 10-12.5 MG 10-12.5 MG 10-12.5 MG Pregabalin Pregabalin No 1{capsu BID Pregabalin 75 MG 75 MG le} 75 MG Atorvastati Atorvastati No 1{table QD Atorvastat [...] 2.5 MG 2.5 MG t} 2.5 MG Methocarbam Methocarbam No Methocarba ol ol mol Medrol Medrol No Medrol (Kamran) (Kamran) (Kamran) Atorvastati Atorvastati No QD Atorvastat n Calcium n Calcium in Calcium 10 MG 10 MG 10 MG Mounjaro 10 Mounjaro 10 No Mounjaro MG/0.5ML MG/0.5ML 10 MG/0.5ML Mounjaro Mounjaro No Mounjaro Linzess 290 Linzess 290 No Linzess mcg mcg 290 mcg Lisinopril- Lisinopril- No 1{table QD Lisinopril hydroCHLORO hydroCHLORO t} -hydroCHLO thiazide thiazide ROthiazide 10-12.5 MG 10-12.5 MG 10-12.5 MG Pregabalin Pregabalin No 1{capsu BID Pregabalin 75 MG 75 MG le} 75 MG Atorvastati Atorvastati No 1{table QD Atorvastat [...] 50 MG t_as_ne HCl 50 MG eded} Methocarbam Methocarbam No Methocarba ol ol mol Medrol Medrol No Medrol (Kamran) (Kamran) (Kamran) Atorvastati Atorvastati No QD Atorvastat n Calcium n Calcium in Calcium 10 MG 10 MG 10 MG Mounjaro 10 Mounjaro 10 No Mounjaro MG/0.5ML MG/0.5ML 10 MG/0.5ML Linzess 290 Linzess 290 No Linzess mcg mcg 290 mcg Mounjaro Mounjaro No Mounjaro Letrozole Letrozole No 1{table QD Letrozole 2.5 MG 2.5 MG t} 2.5 MG Lisinopril- Lisinopril- No 1{table QD Lisinopril hydroCHLORO hydroCHLORO t} -hydroCHLO thiazide thiazide ROthiazide 10-12.5 MG 10-12.5 MG 10-12.5 MG Pregabalin Pregabalin No 1{capsu BID Pregabalin 75 MG 75 MG le} 75 MG Atorvastati Atorvastati No 1{table QD Atorvastat n Calcium n Calcium t} in Calcium 10 MG 10 MG 10 MG Synvisc 16 Synvisc 16 No Synvisc 16 MG/2ML MG/2ML MG/2ML Methocarbam Methocarbam No Methocarba ol ol mol Mounjaro Mounjaro No Mounjaro traMADol traMADol No 1{table QD traMADol HCl 50 MG HCl 50 MG t_as_ne HCl 50 MG eded} Atorvastati Atorvastati No QD Atorvastat n Calcium n Calcium in Calcium 10 MG 10 MG 10 MG Pantoprazol Pantoprazol No 1{table QD Pantoprazo e Sodium 40 e Sodium 40 t} le Sodium MG MG 40 MG Mounjaro 10 Mounjaro 10 No Mounjaro MG/0.5ML MG/0.5ML 10 MG/0.5ML Synvisc 16 Synvisc 16 No Synvisc 16 MG/2ML MG/2ML MG/2ML Linzess 290 Linzess 290 No Linzess mcg mcg 290 mcg Medrol Medrol No Medrol (Kamran) (Kamran) (Kamran) Synvisc 16 Synvisc 16 No Synvisc 16 MG/2ML MG/2ML MG/2ML Letrozole Letrozole No 1{table QD Letrozole 2.5 MG 2.5 MG t} 2.5 MG Methocarbam Methocarbam No Methocarba ol ol mol Mounjaro Mounjaro No Mounjaro traMADol traMADol No 1{table QD traMADol HCl 50 MG HCl 50 MG t_as_ne HCl 50 MG eded} Atorvastati Atorvastati No QD Atorvastat n Calcium n Calcium in Calcium 10 MG 10 MG 10 MG Pantoprazol Pantoprazol No 1{table QD Pantoprazo e Sodium 40 e Sodium 40 t} le Sodium MG MG 40 MG Mounjaro 10 Mounjaro 10 No Mounjaro MG/0.5ML MG/0.5ML 10 MG/0.5ML Synvisc 16 Synvisc 16 No Synvisc 16 MG/2ML MG/2ML MG/2ML Linzess 290 Linzess 290 No Linzess mcg mcg 290 mcg Medrol Medrol No Medrol (Kamran) (Kamran) (Kamran) Synvisc 16 Synvisc 16 No Synvisc 16 MG/2ML MG/2ML MG/2ML Letrozole Letrozole No 1{table QD Letrozole 2.5 MG 2.5 MG t} 2.5 MG Atorvastati Atorvastati No 1{table QD Atorvastat n Calcium n Calcium t} in Calcium 10 MG 10 MG 10 MG Linzess 290 Linzess 290 No Linzess mcg mcg 290 mcg Lisinopril- Lisinopril- No 1{table QD Lisinopril hydroCHLORO hydroCHLORO t} -hydroCHLO thiazide thiazide ROthiazide 10-12.5 MG 10-12.5 MG 10-12.5 MG Medrol Medrol No Medrol (Kamran) (Kamran) (Akmran) Linzess 290 Linzess 290 No Linzess mcg mcg 290 mcg Methocarbam Methocarbam No Methocarba ol ol mol Mounjaro 10 Mounjaro 10 No Mounjaro MG/0.5ML MG/0.5ML 10 MG/0.5ML traMADol traMADol No 1{table QD traMADol HCl 50 MG HCl 50 MG t_as_ne HCl 50 MG eded} Synvisc 16 Synvisc 16 No Synvisc 16 MG/2ML MG/2ML MG/2ML Letrozole Letrozole No 1{table QD Letrozole 2.5 MG 2.5 MG t} 2.5 MG Letrozole Letrozole No 1{table QD Letrozole 2.5 MG 2.5 MG t} 2.5 MG methylPREDN methylPREDN No QD methylPRED ISolone 4 ISolone 4 NISolone 4 MG MG MG Synvisc 16 Synvisc 16 No Synvisc 16 MG/2ML MG/2ML MG/2ML Pantoprazol Pantoprazol No 1{table QD Pantoprazo e Sodium 40 e Sodium 40 t} le Sodium MG MG 40 MG Atorvastati Atorvastati No QD Atorvastat n Calcium n Calcium in Calcium 10 MG 10 MG 10 MG Mounjaro Mounjaro No Mounjaro Pantoprazol Pantoprazol No 1{table QD Pantoprazo e Sodium 40 e Sodium 40 t} le Sodium MG MG 40 MG Medrol Medrol No Medrol (Kamran) (Kamran) (Kamran) traMADol traMADol No 1{table QD traMADol HCl 50 MG HCl 50 MG t_as_ne HCl 50 MG eded} Linzess 290 Linzess 290 No Linzess mcg mcg 290 mcg Methocarbam Methocarbam No Methocarba ol ol mol Mounjaro 10 Mounjaro 10 No Mounjaro MG/0.5ML MG/0.5ML 10 MG/0.5ML traMADol traMADol No 1{table QD traMADol HCl 50 MG HCl 50 MG t_as_ne HCl 50 MG eded} Synvisc 16 Synvisc 16 No Synvisc 16 MG/2ML MG/2ML MG/2ML Letrozole Letrozole No 1{table QD Letrozole 2.5 MG 2.5 MG t} 2.5 MG Pregabalin Pregabalin No 1{capsu BID Pregabalin 75 MG 75 MG le} 75 MG methylPREDN methylPREDN No QD methylPRED ISolone 4 ISolone 4 NISolone 4 MG MG MG Synvisc 16 Synvisc 16 No Synvisc 16 MG/2ML MG/2ML MG/2ML Pantoprazol Pantoprazol No 1{table QD Pantoprazo e Sodium 40 e Sodium 40 t} le Sodium MG MG 40 MG Atorvastati Atorvastati No QD Atorvastat n Calcium n Calcium in Calcium 10 MG 10 MG 10 MG Mounjaro Mounjaro No Mounjaro Ambien 10 Ambien 10 No QD Ambien 10 MG MG MG Lomaira 8 Lomaira 8 No TID Lomaira 8 MG MG MG Pantoprazol Pantoprazol No 1{table QD Pantoprazo e Sodium 40 e Sodium 40 t} le Sodium MG MG 40 MG Letrozole Letrozole No 1{table QD Letrozole 2.5 MG 2.5 MG t} 2.5 MG Pantoprazol Pantoprazol No Pantoprazo e Sodium 40 e Sodium 40 le Sodium MG MG 40 MG Mounjaro 10 Mounjaro 10 No Mounjaro MG/0.5ML MG/0.5ML 10 MG/0.5ML Mounjaro 10 Mounjaro 10 No Mounjaro MG/0.5ML MG/0.5ML 10 MG/0.5ML methylPREDN methylPREDN No QD methylPRED ISolone 4 ISolone 4 NISolone 4 MG MG MG methylPREDN methylPREDN No QD methylPRED ISolone 4 ISolone 4 NISolone 4 MG MG MG Pregabalin Pregabalin No QD Pregabalin 225 MG 225 MG 225 MG Mounjaro 10 Mounjaro 10 No Mounjaro MG/0.5ML MG/0.5ML 10 MG/0.5ML traMADol traMADol No 1{table QD traMADol HCl 50 MG HCl 50 MG t_as_ne HCl 50 MG eded} Letrozole Letrozole No 1{table QD Letrozole 2.5 MG 2.5 MG t} 2.5 MG Pantoprazol Pantoprazol No 1{table QD Pantoprazo e Sodium 40 e Sodium 40 t} le Sodium MG MG 40 MG Mounjaro 10 Mounjaro 10 No Mounjaro MG/0.5ML MG/0.5ML 10 MG/0.5ML Letrozole Letrozole No 1{table QD Letrozole 2.5 MG 2.5 MG t} 2.5 MG Letrozole Letrozole No 1{table QD Letrozole 2.5 MG 2.5 MG t} 2.5 MG Pseudoeph-B Pseudoeph-B No 5{ml_as QID Pseudoeph- romphen-DM romphen-DM _needed Bromphen-D } M 30-2-10 MG/5ML MG/5ML MG/5ML methylPREDN methylPREDN No QD methylPRED ISolone 4 ISolone 4 NISolone 4 MG MG MG traMADol traMADol No 1{table QD traMADol HCl 50 MG HCl 50 MG t_as_ne HCl 50 MG eded} Pantoprazol Pantoprazol No 1{table QD Pantoprazo e Sodium 40 e Sodium 40 t} le Sodium MG MG 40 MG Mounjaro 10 Mounjaro 10 No Mounjaro MG/0.5ML MG/0.5ML 10 MG/0.5ML Letrozole Letrozole No 1{table QD Letrozole 2.5 MG 2.5 MG t} 2.5 MG Letrozole Letrozole No 1{table QD Letrozole 2.5 MG 2.5 MG t} 2.5 MG Pseudoeph-B Pseudoeph-B No 5{ml_as QID Pseudoeph- romphen-DM romphen-DM _needed Bromphen-D } M 30-2-10 MG/5ML MG/5ML MG/5ML methylPREDN methylPREDN No QD methylPRED ISolone 4 ISolone 4 NISolone 4 MG MG MG traMADol traMADol No 1{table QD traMADol HCl 50 MG HCl 50 MG t_as_ne HCl 50 MG eded} Letrozole Letrozole No 1{table QD Letrozole 2.5 MG 2.5 MG t} 2.5 MG Pantoprazol Pantoprazol No 1{table QD Pantoprazo e Sodium 40 e Sodium 40 t} le Sodium MG MG 40 MG Mounjaro 10 Mounjaro 10 No [place]jar[place] MG/0.5ML MG/0.5ML 10 MG/0.5ML Letrozole Letrozole No 1{table QD Letrozole 2.5 MG 2.5 MG t} 2.5 MG traMADol traMADol No 1{table QD traMADol HCl 50 MG HCl 50 MG t_as_ne HCl 50 MG eded} Pseudoeph-B Pseudoeph-B No 5{ml_as QID Pseudoeph- romphen-DM romphen-DM _needed Bromphen-D 302- 302 } M 30-2-10 MG/5ML MG/5ML MG/5ML methylPREDN methylPREDN No QD methylPRED ISolone 4 ISolone 4 NISolone 4 MG MG MG Letrozole Letrozole No 1{table QD Letrozole 2.5 MG 2.5 MG t} 2.5 MG Pantoprazol Pantoprazol No 1{table QD Pantoprazo e Sodium 40 e Sodium 40 t} le Sodium MG MG 40 MG Mounjaro 10 Mounjaro 10 No [place] MG/0.5ML MG/0.5ML 10 MG/0.5ML Letrozole Letrozole No 1{table QD Letrozole 2.5 MG 2.5 MG t} 2.5 MG traMADol traMADol No 1{table QD traMADol HCl 50 MG HCl 50 MG t_as_ne HCl 50 MG eded} Pseudoeph-B Pseudoeph-B No 5{ml_as QID Pseudoeph- romphen-DM romphen-DM _needed Bromphen-D 30210 30210 } M 30-2-10 MG/5ML MG/5ML MG/5ML methylPREDN methylPREDN No QD methylPRED ISolone 4 ISolone 4 NISolone 4 MG MG MG Pantoprazol Pantoprazol No 1{table QD Pantoprazo e Sodium 40 e Sodium 40 t} le Sodium MG MG 40 MG [place]jaro 10 [place] 10 No [place] MG/0.5ML MG/0.5ML 10 MG/0.5ML Pseudoeph-B Pseudoeph-B No 5{ml_as QID Pseudoeph- romphen-DM romphen-DM _needed Bromphen-D 302 } M 30-2-10 MG/5ML MG/5ML MG/5ML Pregabalin Pregabalin No 1{capsu BID Pregabalin 225 MG 225 MG le} 225 MG Ambien 10 Ambien 10 No QD Ambien 10 MG MG MG Letrozole Letrozole No 1{table QD Letrozole 2.5 MG 2.5 MG t} 2.5 MG Letrozole Letrozole No 1{table QD Letrozole 2.5 MG 2.5 MG t} 2.5 MG methylPREDN methylPREDN No QD methylPRED ISolone 4 ISolone 4 NISolone 4 MG MG MG Pantoprazol Pantoprazol No 1{table QD Pantoprazo e Sodium 40 e Sodium 40 t} le Sodium MG MG 40 MG Mounjaro 10 M[place]jaro 10 No [place] MG/0.5ML MG/0.5ML 10 MG/0.5ML Pseudoeph-B Pseudoeph-B No 5{ml_as QID Pseudoeph- romphen-DM romphen-DM _needed Bromphen-D } M 302-10 MG/5ML MG/5ML MG/5ML Pregabalin Pregabalin No 1{capsu BID Pregabalin 225 MG 225 MG le} 225 MG Ambien 10 Ambien 10 No QD Ambien 10 MG MG MG Letrozole Letrozole No 1{table QD Letrozole 2.5 MG 2.5 MG t} 2.5 MG Letrozole Letrozole No 1{table QD Letrozole 2.5 MG 2.5 MG t} 2.5 MG methylPREDN methylPREDN No QD methylPRED ISolone 4 ISolone 4 NISolone 4 MG MG MG Pantoprazol Pantoprazol No 1{table QD Pantoprazo e Sodium 40 e Sodium 40 t} le Sodium MG MG 40 MG Mounjaro 10 Mounjaro 10 No Mounjaro MG/0.5ML MG/0.5ML 10 MG/0.5ML Pseudoeph-B Pseudoeph-B No 5{ml_as QID Pseudoeph- romphen-DM romphen-DM _needed Bromphen-D 30 } M 302-10 MG/5ML MG/5ML MG/5ML Pregabalin Pregabalin No 1{capsu BID Pregabalin 225 MG 225 MG le} 225 MG Ambien 10 Ambien 10 No QD Ambien 10 MG MG MG Letrozole Letrozole No 1{table QD Letrozole 2.5 MG 2.5 MG t} 2.5 MG Letrozole Letrozole No 1{table QD Letrozole 2.5 MG 2.5 MG t} 2.5 MG methylPREDN methylPREDN No QD methylPRED ISolone 4 ISolone 4 NISolone 4 MG MG MG Pantoprazol Pantoprazol No 1{table QD Pantoprazo e Sodium 40 e Sodium 40 t} le Sodium MG MG 40 MG Mounjaro 10 Mounjaro 10 No Mounjaro MG/0.5ML MG/0.5ML 10 MG/0.5ML Pseudoeph-B Pseudoeph-B No 5{ml_as QID Pseudoeph- romphen-DM romphen-DM _needed Bromphen-D } M MG/5ML MG/5ML MG/5ML Pregabalin Pregabalin No 1{capsu BID Pregabalin 225 MG 225 MG le} 225 MG Ambien 10 Ambien 10 No QD Ambien 10 MG MG MG Letrozole Letrozole No 1{table QD Letrozole 2.5 MG 2.5 MG t} 2.5 MG Letrozole Letrozole No 1{table QD Letrozole 2.5 MG 2.5 MG t} 2.5 MG methylPREDN methylPREDN No QD methylPRED ISolone 4 ISolone 4 NISolone 4 MG MG MG Pantoprazol Pantoprazol No 1{table QD Pantoprazo e Sodium 40 e Sodium 40 t} le Sodium MG MG 40 MG Mounjaro 10 Mounjaro 10 No Mounjaro MG/0.5ML MG/0.5ML 10 MG/0.5ML Pseudoeph-B Pseudoeph-B No 5{ml_as QID Pseudoeph- romphen-DM romphen-DM _needed Bromphen-D 30-2-10 30-2-10 } M 30-2-10 MG/5ML MG/5ML MG/5ML Pregabalin Pregabalin No 1{capsu BID Pregabalin 225 MG 225 MG le} 225 MG Ambien 10 Ambien 10 No QD Ambien 10 MG MG MG Letrozole Letrozole No 1{table QD Letrozole 2.5 MG 2.5 MG t} 2.5 MG Letrozole Letrozole No 1{table QD Letrozole 2.5 MG 2.5 MG t} 2.5 MG methylPREDN methylPREDN No QD methylPRED ISolone 4 ISolone 4 NISolone 4 MG MG MG Atorvastati Atorvastati No 1{table [...] D3 Vitamin D3 No 1{table Vitamin D3 34533 UNIT 17596 UNIT t} 78708 UNIT Pantoprazol Pantoprazol No 1{table QD Pantoprazo [...] D3 Vitamin D3 No 1{table Vitamin D3 61432 UNIT 16360 UNIT t} 53189 UNIT Pantoprazol Pantoprazol No 1{table QD Pantoprazo [...] D3 Vitamin D3 No 1{table Vitamin D3 93189 UNIT 69923 UNIT t} 66438 UNIT Ambien 5 MG Ambien 5 MG [...] D3 Vitamin D3 No 1{table Vitamin D3 22626 UNIT 52504 UNIT t} 90884 UNIT Ambien 5 MG Ambien 5 MG [...] D3 Vitamin D3 No 1{table Vitamin D3 67388 UNIT 51175 UNIT t} 79931 UNIT Ambien 5 MG Ambien 5 MG [...] D3 Vitamin D3 No 1{table Vitamin D3 28418 UNIT 86610 UNIT t} 66352 UNIT Amitriptyli Amitriptyli No 1{table Amitriptyl ne [...] D3 Vitamin D3 No 1{table Vitamin D3 61925 UNIT 34662 UNIT t} 03070 UNIT Amitriptyli Amitriptyli No 1{table Amitriptyl ne [...] D3 Vitamin D3 No 1{table Vitamin D3 75718 UNIT 99833 UNIT t} 48571 UNIT traMADol traMADol No traMADol HCl HCl [...] D3 Vitamin D3 No 1{table Vitamin D3 05313 UNIT 92927 UNIT t} 74700 UNIT traMADol traMADol No traMADol HCl HCl [...] D3 Vitamin D3 No 1{table Vitamin D3 29880 UNIT 35744 UNIT t} 62849 UNIT traMADol traMADol No traMADol HCl HCl [...] D3 Vitamin D3 No 1{table Vitamin D3 28570 UNIT 26787 UNIT t} 31191 UNIT traMADol traMADol No traMADol HCl HCl [...] t} 2.5 MG 00:00 :00 Letrozole Letrozole No 1{table QD Letrozole 2.5 MG 2.5 MG 12-18 t} 2.5 MG 00:00 :00 Immunizations Ordered Filled Date Status Comments Source Immunization Name Immunization Name Eric Reyes 2020-12-25 [facility] 14:52:00 [facility] Eric Reyes 2020-12-25 Completed [facility] (Triam[facility] (Triamcinolone) 14:52:00 [facility] Eric Reyes 2020-12-25 Completed [facility] (Triamcinolone) (Triamcinolone) 14:52:00 [facility] Eric Reyes 2020-12-25 Completed [facility] (Triamcinolone) (Triamcinolone) 14:52:00 [facility] Bupivicaine [place] Bupivicaine [place] 2020-12-25 Completed [facility] 14:51:00 [facility] Bupivicaine [place] Bupivicaine [place] 2020-12-25 Completed [facility] - 14:51:00 [facility] Bupivicaine [place] Bupivicaine [place] 2020-12-25 Completed [facility] - 14:51:00 [facility] Bupivicaine [place] Bupivicaine [place] 2020-12-25 Completed [facility] - 14:51:00 [facility] Pfizer SARS-CoV-2 2020-11-09 Completed [facility] ([facility] 00:00:00 Braden MONTEJO Cap) [facility] Pfizer SARS-CoV-2 2020-10-19 Completed [facility] Vaccination (Purple 00:00:00 Braden MONTEJO Cap) [facility] Hyalgan 20 mg Hyalgan 20 mg 2020-07-31 [facility]pleted [facility] Hyalgan 20 mg Hyalgan 20 mg 2020-07-31 Completed [facility]00 [facility] Hyalgan 20 mg Hyalgan 20 mg 2020-07-31 Completed [facility] 15:32:00 [facility] Hyalgan 20 mg Hyalgan 20 mg 2020-07-31 Completed [facility] - 15:32:00 [facility] Hyalgan 20 mg Hyalgan 20 mg 2020-07-31 Completed [facility] - 15:32:00 [facility] Hyalgan 20 mg Hyalgan 20 mg 2020-07-31 Completed [facility] - 15:32:00 [facility] Hyalgan 20 mg Hyalgan 20 mg 2020-07-24 Completed [facility] - 16:23:00 [facility] Hyalgan 20 mg Hyalgan 20 mg 2020-07-24 Completed [facility] 16:23:00 [facility] Hyalgan 20 mg Hyalgan 20 mg 2020-07-24 Completed [facility] - 16:23:00 [facility] Hyalgan 20 mg Hyalgan 20 mg 2020-07-24 Completed [facility] - 16:23:00 [facility] Hyalgan 20 mg Hyalgan 20 mg 2020-07-24 Completed [facility] 16:23:00 [facility] Hyalgan 20 mg Hyalgan 20 mg 2020-07-24 Completed [facility] 16:23:00 [facility] Bupivicaine [place] Bupivicaine [place] 2020-07-17 Completed [facility] - 13:28:00 [facility] Hyalgan 20 mg Hyalgan 20 mg 2020-07-17 Completed [facility] 13:28:00 [facility] Kenalog Kenalog 2020-07-17 Completed [facility] - (Triamcinolone) (Triamcinolone) 13:28:00 [facility] Bupivicaine [place] Bupivicaine [place] 2020-07-17 Completed [facility] - 13:28:00 [facility] Hyalgan 20 mg Hyalgan 20 mg 2020-07-17 Completed [facility] 13:28:00 [facility] Kenalog Kenalog 2020-07-17 Completed [facility] (Triamcinolone) (Triamcinolone) 13:28:00 [facility] Bupivicaine [place] Bupivicaine [place] 2020-07-17 Completed [facility] - 13:28:00 [facility] Hyalgan 20 mg Hyalgan 20 mg 2020-07-17 Completed [facility] 13:28:00 [facility] Eric Reyes 2020-07-17 Completed [facility] (Triamcinolone) (Triamcinolone) 13:28:00 [facility] Bupivicaine [place] Bupivicaine [place] 2020-07-17 Completed [facility] - 13:28:00 [facility] Hyalgan 20 mg Hyalgan 20 mg 2020-07-17 Completed [facility] 13:28:00 [facility] Eric Reyes 2020-07-17 Completed [facility] - (Triamcinolone) (Triamcinolone) 13:28:00 [facility] Bupivicaine [place] Bupivicaine [place] 2020-07-17 Completed [facility] - 13:28:00 [facility] Hyalgan 20 mg Hyalgan 20 mg 2020-07-17 Completed [facility] 13:28:00 [facility] Eric Reyes 2020-07-17 Completed [facility] - (Triamcinolone) (Triamcinolone) 13:28:00 [facility] Bupivicaine [place] Bupivicaine [place] 2020-07-17 Completed [facility] - 13:28:00 [facility] Hyalgan 20 mg Hyalgan 20 mg 2020-07-17 Completed [facility] 13:28[facility]00 [facility] Eric Reyes 2020-07-17 Completed [facility] - (Triamcinolone) (Triamcinolone) 13:28:00 [facility] Pfizer SARS-CoV-2 Unknown Completed [facility] Vaccination (Fede Feliciano MD, Cap) Escobar Sue Cory Pfizer SARS-CoV-2 Unknown Completed [facility] Vaccination (Fede Feliciano MD, Cap) Escobar Sue [facility] Pfizer SARS-CoV-2 Unknown Completed [facility] Vaccination ([facility] Braden MONTEJO Cap) [facility] Pfizer SARS-CoV-2 Unknown Completed [facility] Vaccination (Fede Feliciano MD, Cap) [facility] Vital Signs Vital Name Observation Time Observation Value Comments Source Systolic blood 2023-01-29 16:05:00 139 mm[Hg] [facility] pressure [facility] Diastolic blood 2023-01-29 16:05:00 89 mm[Hg] [facility] Heart rate 2023-01-29 15:57:00 72 /min [facility] Respiratory rate 2023-01-29 15:57:00 18 /min [facility] Body height 2023-01-29 15:57:00 152.4 cm [facility] Body weight 2023-01-29 15:57:00 61.19 kg [facility] BMI 2023-01-29 15:57:00 26.35 kg/m2 [facility] Oxygen saturation in 2023-01-29 15:57:00 100 /min [facility] Arterial blood by [facility] Pulse oximetry Branch HEIGHT 2022-09-21 13:18:00 152.4 cm WEIGHT 2022-09-21 13:18:00 72.576 kg HEIGHT 2022-09-21 13:18:00 152.4 cm WEIGHT 2022-09-21 13:18:00 72.576 kg HEIGHT 2022-09-21 13:18:00 152.4 cm WEIGHT 2022-09-21 13:18:00 72.576 kg HEIGHT 2022-09-01 11:38:00 149.9 cm WEIGHT 2022-09-01 11:38:00 73.755 kg HEIGHT 2022-09-01 11:38:00 149.9 cm WEIGHT 2022-09-01 11:38:00 73.755 kg height 2022-08-25 15:15:00 60 [in_i] [facility] weight 2022-08-25 15:15:00 170 [lb_av] [facility] temperature 2022-08-25 15:15:00 97.8 [degF] [facility] bmi 2022-08-25 15:15:00 33.2 kg/m2 [facility] blood pressure 2022-08-25 15:15:00 120 mm[Hg] [facility] - systolic [facility] blood pressure 2022-08-25 15:15:00 78 mm[Hg] [facility] - diastolic [facility] height 2022-08-14 11:20:00 60 [in_i] [facility] weight 2022-08-14 11:20:00 169.8 [lb_av] [facility] bmi 2022-08-14 11:20:00 33.16 kg/m2 [facility] height 2022-07-30 08:20:00 60 [in_i] [facility] weight 2022-07-30 08:20:00 169.8 [lb_av] [facility] temperature 2022-07-30 08:20:00 97.2 [degF] [facility] bmi 2022-07-30 08:20:00 33.16 kg/m2 [facility] oximetry 2022-07-30 08:20:00 99 % [facility] respiratory rate 2022-07-30 08:20:00 18 /min [facility] blood pressure 2022-07-30 08:20:00 120 mm[Hg] [facility] - systolic [facility] blood pressure 2022-07-30 08:20:00 72 mm[Hg] [facility] - diastolic [facility] WEIGHT 2022-04-30 13:29:00 83.235 kg HEIGHT 2022-04-30 13:29:00 149.9 cm WEIGHT 2022-04-30 13:29:00 83.235 kg HEIGHT 2022-04-30 13:29:00 149.9 cm height 2022-04-29 16:10:00 60 [in_i] [facility] weight 2022-04-29 16:10:00 188.6 [lb_av] [facility] temperature 2022-04-29 16:10:00 97.2 [degF] [facility] bmi 2022-04-29 16:10:00 36.83 kg/m2 [facility] height 2022-04-23 11:30:00 60 [in_i] [facility] weight 2022-04-23 11:30:00 188.6 [lb_av] [facility] temperature 2022-04-23 11:30:00 97.2 [degF] [facility] bmi 2022-04-23 11:30:00 36.83 kg/m2 [facility] oximetry 2022-04-23 11:30:00 97 % [facility] respiratory rate 2022-04-23 11:30:00 18 /min [facility] blood pressure 2022-04-23 11:30:00 127 mm[Hg] [facility] - systolic [facility] blood pressure 2022-04-23 11:30:00 69 mm[Hg] [facility] - diastolic [facility] HEIGHT 2022-03-31 13:24:00 149.9 cm WEIGHT 2022-03-31 13:24:00 86.864 kg HEIGHT 2022-03-31 13:24:00 149.9 cm WEIGHT 2022-03-31 13:24:00 86.864 kg HEIGHT 2022-03-12 09:08:00 149.9 cm WEIGHT 2022-03-12 09:08:00 91.173 kg HEIGHT 2022-03-12 09:08:00 149.9 cm WEIGHT 2022-03-12 09:08:00 91.173 kg HEIGHT 2022-03-12 09:08:00 149.9 cm WEIGHT 2022-03-12 09:08:00 91.173 kg height 2022-03-11 10:15:00 60 [in_i] [facility] weight 2022-03-11 10:15:00 200 [lb_av] [facility] temperature 2022-03-11 10:15:00 97.9 [degF] [facility] - [facility] bmi 2022-03-11 10:15:00 39.06 kg/m2 [facility] blood pressure 2022-03-11 10:15:00 125 mm[Hg] [facility] - systolic [facility] blood pressure 2022-03-11 10:15:00 74 mm[Hg] [facility] - diastolic [facility] height 2022-03-04 08:15:00 60 [in_i] Common [facility] weight 2022-03-04 08:15:00 200 [lb_av] [facility] temperature 2022-03-04 08:15:00 97.6 [degF] [facility] 2022-03-04 08:15:00 39.06 kg/m2 [facility] S [facility] blood pressure 2022-03-04 08:15:00 126 mm[Hg] [facility] - systolic [facility] blood pressure 2022-03-04 08:15:00 72 mm[Hg] [facility] - diastolic [facility] height 2022-02-20 09:20:00 60 [in_i] [facility] weight 2022-02-20 09:20:00 208.1 [lb_av] [facility] temperature 2022-02-20 09:20:00 97.6 [degF] [facility] bmi 2022-02-20 09:20:00 40.64 kg/m2 [facility] oximetry 2022-02-20 09:20:00 97 % [facility] S [facility] respiratory rate 2022-02-20 09:20:00 17 /min [facility] blood pressure 2022-02-20 09:20:00 117 mm[Hg] [facility] - systolic [facility] blood pressure 2022-02-20 09:20:00 67 mm[Hg] [facility] - diastolic [facility] HEIGHT 2022-02-17 10:51:00 149.9 cm WEIGHT 2022-02-17 10:51:00 94.348 kg HEIGHT 2022-02-12 08:12:00 149.9 cm WEIGHT 2022-02-12 08:12:00 92.08 kg HEIGHT 2022-02-10 13:52:00 149.9 cm WEIGHT 2022-02-10 13:52:00 92.08 kg HEIGHT 2022-02-12 08:12:00 149.9 cm WEIGHT 2022-02-12 08:12:00 92.08 kg HEIGHT 2022-02-10 13:52:00 149.9 cm WEIGHT 2022-02-10 13:52:00 92.08 kg Systolic blood 2022-01-24 19:42:00 124 mm[Hg] Univer sity of pressure [facility] Diastolic blood 2022-01-24 19:42:00 85 mm[Hg] [facility]ive rsity of [facility] Heart rate 2022-01-24 19:42:00 86 /min [facility] ty [facility] Respiratory rate 2022-01-24 19:42:00 20 /min Univ ersity of [facility] Body height 2022-01-24 19:42:00 152.4 cm Universi ty [facility] Body weight 2022-01-24 19:42:00 [facility]622 [facility] 2022-01-24 19:42:00 40.31 kg/m2 [facility] Oxygen saturation in 2022-01-24 19:42:00 97 /min [facility] Arterial blood by [facility] Pulse oximetry Branch HEIGHT 2022-01-13 10:52:00 149.9 cm WEIGHT 2022-01-13 10:52:00 93.305 kg Systolic blood 2021-12-25 16:11:00 114 mm[Hg] [facility] Diastolic blood 2021-12-25 16:11:00 73 mm[Hg] [facility]ive [facility]ity of [facility] Heart rate 2021-12-25 16:11:00 77 /min [facility] ty [facility] Body temperature 2021-12-25 16:11:00 36.33 Sri Univ ersity of [facility] Body height 2021-12-25 16:11:00 152.4 cm [facility]i ty of [facility] Body weight 2021-12-25 16:11:00 96.208 kg [facility] BMI 2021-12-25 16:11:00 41.42 kg/m2 [facility] height 2021-12-25 13:20:00 60 [in_i] [facility] weight 2021-12-25 13:20:00 212.2 [lb_av] [facility] temperature 2021-12-25 13:20:00 97.2 [degF] [facility] bmi 2021-12-25 13:20:00 41.44 kg/m2 [facility] oximetry 2021-12-25 13:20:00 97 % [facility] respiratory rate 2021-12-25 13:20:00 17 /min [facility] blood pressure 2021-12-25 13:20:00 123 mm[Hg] [facility] - systolic [facility] blood pressure 2021-12-25 13:20:00 74 mm[Hg] [facility] diastolic [facility] Systolic blood 2021-12-23 18:11:00 112 mm[Hg] Univer sity of pressure [facility] Diastolic blood 2021-12-23 18:11:00 76 mm[Hg] Unive rsity of pressure [facility] Heart rate 2021-12-23 18:11:00 89 /min [facility]i ty [facility] Body height 2021-12-23 18:11:00 152.4 cm [facility]i [facility] Body weight 2021-12-23 18:11:00 99.791 kg [facility]i [facility] BMI 2021-12-23 18:11:00 42.97 kg/m2 Univers[facility] ty [facility] Oxygen saturation in 2021-12-23 18:11:00 97 /min [facility] Arterial blood by [facility] Pulse oximetry Branch height 2021-12-23 15:30:00 60 [in_i] Common [facility] weight 2021-12-23 15:30:00 213 [lb_av] [facility] temperature 2021-12-23 15:30:00 97.8 [degF] [facility] bmi 2021-12-23 15:30:00 41.59 kg/m2 [facility] blood pressure 2021-12-23 15:30:00 133 mm[Hg] [facility] - systolic [facility] blood pressure 2021-12-23 15:30:00 87 mm[Hg] [facility] - diastolic [facility] Systolic blood 2021-11-16 20:19:00 127 mm[Hg] [facility] Diastolic blood 2021-11-16 20:19:00 84 mm[Hg] [facility]ive [facility] Heart rate 2021-11-16 20:19:00 88 /min [facility] Body temperature 2021-11-16 20:19:00 37.56 Sri [facility] Respiratory rate 2021-11-16 20:19:00 18 /min [facility] Body height 2021-11-16 20:19:00 152.4 cm [facility] Body weight 2021-11-16 20:19:00 99.791 kg [facility] BMI 2021-11-16 20:19:00 42.97 kg/m2 [facility] Oxygen saturation in 2021-11-16 20:19:00 96 /min [facility] blood by [facility] Pulse oximetry Branch height 2021-09-19 08:10:00 60 [in_i] [facility] weight 2021-09-19 08:10:00 210.6 [lb_av] [facility] temperature 2021-09-19 08:10:00 98.1 [degF] [facility] bmi 2021-09-19 08:10:00 41.13 kg/m2 [facility] oximetry 2021-09-19 08:10:00 97 % [facility] respiratory rate 2021-09-19 08:10:00 17 /min [facility] blood pressure 2021-09-19 08:10:00 132 mm[Hg] [facility] - systolic [facility] blood pressure 2021-09-19 08:10:00 70 mm[Hg] [facility] - diastolic [facility] height 2021-08-22 15:15:00 60 [in_i] [facility] weight 2021-08-22 15:15:00 208 [lb_av] [facility] bmi 2021-08-22 15:15:00 40.62 kg/m2 [facility] blood pressure 2021-08-22 15:15:00 174 mm[Hg] [facility] - systolic [facility] blood pressure 2021-08-22 15:15:00 98 mm[Hg] [facility] - diastolic [facility] height 2021-08-22 08:00:00 60 [in_i] [facility] weight 2021-08-22 08:00:00 205.8 [lb_av] [facility] temperature 2021-08-22 08:00:00 98.0 [degF] [facility] bmi 2021-08-22 08:00:00 40.19 kg/m2 [facility] oximetry 2021-08-22 08:00:00 97 % [facility] respiratory rate 2021-08-22 08:00:00 17 /min [facility] blood pressure 2021-08-22 08:00:00 148 mm[Hg] [facility] - systolic [facility] blood pressure 2021-08-22 08:00:00 87 mm[Hg] [facility] - diastolic [facility] Systolic blood 2021-08-21 15:09:00 133 mm[Hg] Univer sity of pressure [facility] Diastolic blood 2021-08-21 15:09:00 87 mm[Hg] Unive rsity of pressure [facility] Heart rate 2021-08-21 15:09:00 87 /min [facility]i ty [facility] Respiratory rate 2021-08-21 15:09:00 17 /min [facility] Body height 2021-08-21 15:09:00 152.4 cm [facility]i ty [facility] Body weight 2021-08-21 15:09:00 94.887 kg [facility] BMI 2021-08-21 15:09:00 40.85 kg/m2 [facility] Oxygen saturation in 2021-08-21 15:09:00 95 /min [facility] Arterial blood by [facility] Pulse oximetry Branch height 2021-07-24 13:50:00 60 [in_i] [facility] weight 2021-07-24 13:50:00 210.3 [lb_av] [facility] temperature 2021-07-24 13:50:00 97.2 [degF] [facility] bmi 2021-07-24 13:50:00 41.07 kg/m2 [facility] oximetry 2021-07-24 13:50:00 94 % [facility] respiratory rate 2021-07-24 13:50:00 16 /min [facility] blood pressure 2021-07-24 13:50:00 132 mm[Hg] [facility] - systolic [facility] blood pressure 2021-07-24 13:50:00 72 mm[Hg] [facility] - diastolic [facility] height 2021-06-17 13:15:00 60 [in_i] [facility] weight 2021-06-17 13:15:00 208 [lb_av] [facility] temperature 2021-06-17 13:15:00 97.9 [degF] Common [facility] - [facility] bmi 2021-06-17 13:15:00 40.62 kg/m2 [facility] - [facility] blood pressure 2021-06-17 13:15:00 126 mm[Hg] [facility] - [facility] blood pressure 2021-06-17 13:15:00 72 mm[Hg] [facility] - diastolic [facility] height 2021-04-12 09:30:00 60 [in_i] [facility] - [facility] weight 2021-04-12 09:30:00 200 [lb_av] [facility] - [facility] temperature 2021-04-12 09:30:00 97.6 [degF] [facility] - [facility] 2021-04-12 09:30:00 39.06 kg/m2 [facility] - [facility] blood pressure 2021-04-12 09:30:00 120 mm[Hg] [facility] - systolic [facility] blood pressure 2021-04-12 09:30:00 83 mm[Hg] [facility] height 2021-03-12 11:00:00 60 [in_i] [facility] weight 2021-03-12 11:00:00 206 [lb_av] [facility] temperature 2021-03-12 11:00:00 98.1 [degF] [facility] bmi 2021-03-12 11:00:00 40.23 kg/m2 [facility] blood pressure 2021-03-12 11:00:00 124 mm[Hg] [facility] - systolic [facility] blood pressure 2021-03-12 11:00:00 82 mm[Hg] [facility] - diastolic [facility] height 2021-02-19 16:00:00 60 [in_i] [facility] weight 2021-02-19 16:00:00 210.7 [lb_av] [facility] temperature 2021-02-19 16:00:00 98.2 [degF] [facility] bmi 2021-02-19 16:00:00 41.15 kg/m2 [facility] oximetry 2021-02-19 16:00:00 94 % [facility] respiratory rate 2021-02-19 16:00:00 17 /min [facility] - [facility] blood pressure 2021-02-19 16:00:00 135 mm[Hg] [facility] - systolic [facility] blood pressure 2021-02-19 16:00:00 74 mm[Hg] [facility] - diastolic [facility] height 2021-02-07 11:00:00 60 [in_i] [facility] weight 2021-02-07 11:00:00 206 [lb_av] [facility] temperature 2021-02-07 11:00:00 97.4 [degF] [facility] bmi 2021-02-07 11:00:00 40.23 kg/m2 [facility] blood pressure 2021-02-07 11:00:00 124 mm[Hg] [facility] - systolic [facility] blood pressure 2021-02-07 11:00:00 80 mm[Hg] [facility] - diastolic [facility] height 2021-01-24 15:50:00 60 [in_i] [facility] weight 2021-01-24 15:50:00 206 [lb_av] [facility] bmi 2021-01-24 15:50:00 40.23 kg/m2 [facility] height 2021-01-24 13:00:00 60 [in_i] [facility] weight 2021-01-24 13:00:00 206 [lb_av] [facility] bmi 2021-01-24 13:00:00 40.23 kg/m2 [facility] blood pressure 2021-01-24 13:00:00 126 mm[Hg] [facility] - systolic [facility] blood pressure 2021-01-24 13:00:00 84 mm[Hg] [facility] - diastolic [facility] height 2020-12-25 13:40:00 60 [in_i] [facility] weight 2020-12-25 13:40:00 206 [lb_av] [facility] bmi 2020-12-25 13:40:00 40.23 kg/m2 [facility] blood pressure 2020-12-25 13:40:00 122 mm[Hg] [facility] - systolic [facility] blood pressure 2020-12-25 13:40:00 82 mm[Hg] [facility] - diastolic [facility] Systolic blood 2023-02-05 19:05:31 134 mm[Hg] Univer sity of pressure Braden Deluca on [facility] Diastolic blood 2023-02-05 19:05:31 90 mm[Hg] Unive rsity of pressure Braden Deluca on [facility] Heart rate 2023-02-05 19:05:31 89 /min Universi ty Braden Deluca on [facility] Body temperature 2023-02-05 19:05:31 36.78 Sri Univ ersity [facility]aden [facility] Respiratory rate 2023-02-05 19:05:31 16 /min [facility] Body weight 2023-02-05 19:05:31 59.1 kg Universi ty Braden Del[facility] on [facility] BMI 2023-02-05 19:05:31 27.24 kg/m2 Universi ty Braden Deluca on [facility] Oxygen saturation in 2023-02-05 19:05:31 98 /min University Arterial blood by Braden johnson Pulse oximetry [facility] Systolic blood 2022-12-08 10:38:00 135 mm[Hg] [facility] Diastolic blood 2022-12-08 10:38:00 89 mm[Hg] [facility] Heart rate 2022-12-08 10:38:00 72 /min [facility] Body temperature 2022-12-08 10:38:00 36.61 Sri [facility] Body height 2022-12-08 10:38:00 152.4 cm [facility] Body weight 2022-12-08 10:38:00 65.953 kg [facility] BMI 2022-12-08 10:38:00 28.40 kg/m2 [facility] Respiratory rate 2022-09-21 14:30:00 17 /min [facility] Oxygen saturation in 2022-09-21 14:30:00 98 /min [facility] Arterial blood by Medical Ce nter Pulse oximetry Body height 2022-08-13 13:16:00 147.3 cm [facility] MD Deluca [facility] Systolic blood 2022-02-17 10:51:00 129 mm[Hg] [facility] Diastolic blood 2022-02-17 10:51:00 82 mm[Hg] [facility] Heart rate 2022-02-17 10:51:00 81 /min [facility] Body temperature 2022-02-17 10:51:00 37.11 Sri [facility] Body height 2022-02-17 10:51:00 149.9 cm [facility] Body weight 2022-02-17 10:51:00 94.348 kg [facility] BMI 2022-02-17 10:51:00 42.01 kg/m2 [facility] Respiratory rate 2022-02-12 10:00:00 31 /min [facility] Oxygen saturation in 2022-02-12 10:00:00 99 /min [facility] Arterial blood by Medical Ce ntnatalie Pulse oximetry Systolic blood 2021-12-25 13:14:37 108 mm[Hg] Univer sity of pressure Braden Deluca on [facility] Diastolic blood 2021-12-25 13:14:37 65 mm[Hg] Unive rsity of pressure Braden Deluca [facility] Heart rate 2021-12-25 13:14:37 79 /min Universi ty [facility] MD Deluca on [facility] Body temperature 2021-12-25 13:14:37 36.78 Sri [facility] Respiratory rate 2021-12-25 13:14:37 20 /min [facility] MD Deluca on [facility] Body weight 2021-12-25 13:14:37 96.7 kg Universi ty [facility] MD Deluca on [facility] BMI 2021-12-25 13:14:37 44.57 kg/m2 Universi ty [facility] MD Deluca on [facility] Oxygen saturation in 2021-12-25 13:14:37 99 /min University of Arterial blood by Braden johnson Pulse oximetry [facility] Body height 2021-06-26 17:20:00 147.3 cm Universi ty [facility] MD Deluca on [facility] Systolic (mm Hg) 2020-06-06 20:47:00 Stu rial [place] Diastolic (mm Hg) 2020-06-06 20:47:00 Mem orial [facility] Heart Rate 2020-06-06 20:47:00 [facility] Respitory Rate 2020-06-06 20:47:00 Memori al [facility] Height 2020-06-06 20:47:00 149.86 cm [facility] Weight 2020-06-06 20:47:00 [facility] BMI Calculated 2020-06-06 20:47:00 Memori al [facility] Diastolic (mm Hg) 2013-01-05 21:00:00 Mem orial [place] Systolic (mm Hg) 2013-01-05 21:00:00 Stu rial [facility] Diastolic (mm Hg) 2013-01-05 20:15:00 Mem orial [place] Systolic (mm Hg) 2013-01-05 20:15:00 Stu rial [facility] Diastolic (mm Hg) 2013-01-05 20:00:00 Mem orial [place] Systolic (mm Hg) 2013-01-05 20:00:00 Stu rial [facility] Respitory Rate 2013-01-05 17:45:00 Memori al [place] Respitory Rate 2013-01-05 17:30:00 Memori al [facility] Respitory Rate 2013-01-05 17:15:00 Memori al [place] Temperature Oral (F) 2012-12-29 19:23:00 98 F [facility] Heart Rate 2012-12-29 19:23:00 [facility] Height 2012-12-29 19:02:00 157.48 cm [facility] Weight 2012-12-29 19:02:00 [facility] Procedures Procedure Date / Time Performing Source Performed Clinician COMPLETE BLOOD COUNT W/ 2023-02-05 Irene Sherman [facility] of DIFFERENTIAL 18:55:00 [facility] COMPREHENSIVE METABOLIC PANEL 2023-02-05 Irene Sherman iversity of 18:55:00 [facility] LACTATE DEHYDROGENASE 2023-02-05 Sherman [facility] of 18:55:00 [facility] MAGNESIUM LEVEL 2023-02-05 [facility] 18:55:00 [facility] PHOSPHORUS LEVEL 2023-02-05 [facility] 18:55:00 [facility] URIC ACID 2023-02-05 [facility] of 18:55:00 [facility] VITAMIN D 25 HYDROXY LEVEL 2023-02-05 Irene Sherman [facility] of 18:55:00 [facility] .CBC 2023-02-05 [facility] 18:55:00 [facility] CBC WITH DIFF 2022-10-29 Ajay Walker [place] of 12:43:00 [facility] PHYSICIAN ORDERS 2022-10-29 [facility] of 05:01:00 Unassigned, No [facility] XR SPINE THORACIC 2 VIEWS 2022-09-[address] [facility] 13:49:57 [facility] REFERRAL- REQUEST/RESPONSE 2022-08-29 [facility] of 05:01:00 Unassigned, No [facility] NM BONE SCAN WHOLE BODY 2022-08-13 Irene Sherman [facility] of 16:10:00 [facility] THYROID STIMULATING HORMONE 2022-07-23 Ajay Walker [facility] ersity of 17:33:00 [facility] MICROALBUMIN URINE 2022-07-23 Ajay Walker [facility] 17:33:00 [facility] COMP. METABOLIC PANEL (73294) 2022-07-23 Ajay Walker Un iversity of 17:33:00 [facility] LIPID PANEL ([id number])(TOTAL 2022-07-23 Ajay Walker [facility] sity of CHOLESTEROL, TRIGLYCERIDES, HDL) 17:33:00 [facility] CBC WITH DIFF 2022-07-23 Ajay Walker [facility] 17:33:00 [facility] GLYCOSYLATED HEMOGLOBIN (A1C) 2022-07-23 Ajay Walker Un iversity of 17:33:00 [facility] VITAMIN D, 25-OH 2022-07-23 Ajay Walker [facility] 17:33:00 [facility] ASSIGNMENT OF BENEFITS 2022-07-23 Doctor Universit y of 17:19:21 Unassigned, No [facility] DEXA BONE MINERAL DENSITY BOTH 2022-07-23 Leslee Heredia, U niversity of HIPS AND SPINE 14:20:00 Justin childers [facility] US BREAST COMPLETE BILATERAL 2022-07-23 Summersramana Heredia, Uni versity of 13:44:20 Justin childers [facility] US CHEST/INFRACLAV 2022-07-23 [facility] 13:44:20 Justin Tuttle [facility] MAMMO DIGITAL DIAGNOSTIC BILATERAL 2022-07-23 [facility] of W YUAN 12:51:00 Justin childers [facility] VITAMIN D 25 HYDROXY LEVEL 2022-07-23 [facility] rsity of 11:42:45 Justin childers [facility] COMPLETE BLOOD COUNT W/ 2022-07-23 Summers Giovanna, [facility] of DIFFERENTIAL 11:42:45 Justin childers [facility] COMPREHENSIVE METABOLIC PANEL 2022-07-23 [facility], Un iversity of 11:42:45 Justin childers [facility] MAGNESIUM LEVEL 2022-07-23 [facility] of 11:42:45 Justin childers [facility] PHOSPHORUS LEVEL 2022-07-23 [facility] 11:42:45 Justin Feliciano MD [facility] LACTATE DEHYDROGENASE 2022-07-23 [facility] 11:42:45 Justin Feliciano MD [facility] .CBC 2022-07-23 [facility] 11:42:45 Justin Feliciano MD [facility] DIFFERENTIAL 2022-07-23 [facility] 11:42:45 Justin Feliciano MD [facility] GLUCOSE LEVEL 2022-07-23 [facility] 11:42:45 Justin Feliciano MD [facility] BLOOD UREA NITROGEN 2022-07-23 [facility] o f 11:42:45 Justin Feliciano MD [facility] ELECTROLYTE PANEL 2022-07-23 [facility] 11:42:45 Justin Feliciano MD [facility] SERUM CREATININE 2022-07-23 [facility] 11:42:45 Justin Feliciano MD [facility] .GLOMERULAR FILTRATION RATE 2022-07-23 [facility] ersity of 11:42:45 Justin Feliciano MD [facility] CALCIUM LEVEL 2022-07-23 [facility] 11:42:45 Justin Feliciano MD [facility] ALBUMIN LEVEL 2022-07-23 [facility] 11:42:45 Justin Feliciano MD [facility] ALKALINE PHOSPHATASE 2022-07-23 [facility] of 11:42:45 [facility] ALANINE AMINOTRANSFERASE 2022-07-23 [facility] ity of 11:42:45 Justin Feliciano MD [facility] ASPARTATE AMINOTRANSFERASE 2022-07-23 [facility] rsity of 11:42:45 Justin Feliciano MD [facility] TOTAL PROTEIN 2022-07-23 [facility] of 11:42:45 Justin Feliciano MD [facility] FRACTIONATED BILIRUBIN 2022-07-23 [facility] 11:42:45 [facility] POCT-GLUCOSE METER 2022-03-19 Agustin Bowamn [facility] 07:35:00 [facility] CBC W/PLT COUNT & AUTO 2022-03-[address] [facility] DIFFERENTIAL 02:48:00 [facility] CBC W/PLT COUNT & AUTO 2022-03-[address] [facility] DIFFERENTIAL 02:48:00 [facility] POCT-GLUCOSE METER 2022-03-[address] [facility] 21:17:00 [facility] POCT-GLUCOSE METER 2022-03-[address] [facility] 15:59:00 [facility] LAPAROSCOPY, WITH HADLEY-EN-Y 2022-03-[address] [facility] GASTROENTEROSTOMY 11:05:00 [facility] HERNIORRHAPHY, HIATAL 2022-03-[address] [facility] 11:05:00 [facility] POCT-GLUCOSE METER 2022-03-[address] [facility] 09:58:00 [facility] VITAMIN D, 25-HYDROXY 2022-03-[address] [facility] 12:53:00 [facility] SARS-COV2/RT-PCR ([facility] & REF LABS) 2022-03-[address] [facility] 12:39:00 [facility] MISCELLANEOUS LAB ORDER 2022-03-[address] [facility] 11:50:00 [facility] CBC W/PLT COUNT & AUTO 2022-03-[address] [facility] DIFFERENTIAL 11:50:00 [facility] COMPREHENSIVE METABOLIC PANEL 2022-03-[address] [facility] 11:50:00 [facility] HEMOGLOBIN A1C 2022-03-[address] [facility] 11:50:00 [facility] IRON, SERUM 2022-03-[address] [facility] 11:50:00 [facility] VITAMIN B1 2022-03-[address] [facility] 11:50:00 [facility] VITAMIN B12 2022-03-[address] [facility] 11:50:00 [facility] CBC W/PLT COUNT & AUTO 2022-03-[address] [facility] DIFFERENTIAL 11:50:00 [facility] REPORT OF PROCEDURE - ENDOSCOPY 2022-02-[address] [facility] URL 09:40:32 [facility] ESOPHAGOGASTRODUODENOSCOPY 2022-02-12 [facility] 09:25:00 [facility] EKG-SCANNED 2022-02-[address] [facility] 00:00:00 [facility] CBC W/PLT+MANUAL DIFF 2022-02-[address] [facility] 10:57:00 [facility] BASIC METABOLIC PANEL 2022-02-[address] [facility] 10:57:00 [facility] CBC WITH PLATELET COUNT + MANUAL 2022-02-[address] [facility] DIFF 10:57:00 [facility] (MANUAL DIFFERENTIAL) 2022-02-[address] [facility] 10:57:00 [facility] SLEEP STUDY DATA REPORT 2022-01-21 Doctor [facility] of 05:01:00 Unassigned, No [facility] MAMMOGRAPHY 2022-01-[address] 00:00:00 [facility] COLONOSCOPY 2022-01-[address] [facility] 00:00:00 [facility] PHYSICIAN ORDERS 2022-01-01 [facility] of 05:01:00 Unassigned, No [facility] COMPLETE BLOOD COUNT W/ 2021-12-25 Irene Sherman [facility] ty of DIFFERENTIAL 12:13:28 [facility] MD Marry childers [facility] COMPREHENSIVE METABOLIC PANEL 2021-12-25 Irene Sherman [facility] 12:13:28 [facility] Marry childers [facility] LACTATE DEHYDROGENASE 2021-12-25 Irene Sherman [place] of 12:13:28 [facility] MD Marry childers [facility] MAGNESIUM LEVEL 2021-12-25 Irene Sherman [place] of 12:13:28 [facility] MD Marry childers [facility] PHOSPHORUS LEVEL 2021-12-25 Irene Sherman [place] of 12:13:28 [facility] MD Marry childers [facility] URIC ACID 2021-12-25 Irene Sherman [place] of 12:13:28 [facility] MD Marry childers [facility] VITAMIN D 25 HYDROXY LEVEL 2021-12-25 [facility] rsity of 12:13:28 [facility] Results CBC 2021-12-25 ShermanChan [facility] of 12:13:28 [facility] childers [facility] MANUAL DIFFERENTIAL 2021-12-25 [facility] o f 12:13:28 [facility] alvarado [facility] GLUCOSE LEVEL 2021-12-25 [facility] of 12:13:28 [facility] childers [facility] BLOOD UREA NITROGEN 2021-12-25 [facility] o f 12:13:28 [facility] alvarado [facility] ELECTROLYTE PANEL 2021-12-25 [facility] of 12:13:28 [facility] SERUM CREATININE 2021-12-25 [facility] of 12:13:28 [facility] .GLOMERULAR FILTRATION RATE 2021-12-25 [facility] ersity of 12:13:28 [facility] childers [facility] CALCIUM LEVEL TOTAL 2021-12-25 [facility] o f 12:13:28 [facility] ALBUMIN LEVEL 2021-12-25 [facility] of 12:13:28 [facility] alvarado [facility] ALKALINE PHOSPHATASE 2021-12-25 ShermanChan [facility] of 12:13:28 [facility] childers [facility] ALANINE AMINOTRANSFERASE 2021-12-25 [facility] ity of 12:13:28 [facility] childers [facility] ASPARTATE AMINOTRANSFERASE 2021-12-25 [facility] rsity of 12:13:28 [facility] TOTAL PROTEIN 2021-12-25 ShermanChan [facility] of 12:13:28 [facility] childers [facility] FRACTIONATED BILIRUBIN 2021-12-25 [facility] of 12:13:28 [facility] EXTERNAL PROVIDER RECORDS 2021-12-06 Doctor [facility] sity of 05:01:00 Unassigned, No [facility] AUTHORIZATION TO RELEASE PHI TO 2021-11-25 [facility] 05:01:00 Unassigned, No [facility] XR KNEE 3 VW RIGHT 2021-11-16 Ana Singer [facility] 20:54:01 [facility] CONSENT/REFUSAL FOR DIAGNOSIS AND 2021-11-16 [facility] TREATMENT 20:14:52 Unassigned, No [facility] EXTERNAL PROVIDER RECORDS 2021-10-14 Doctor Neri sity of 05:01:00 Unassigned, No [facility] REFERRAL- REQUEST/RESPONSE 2021-09-04 Doctor Goodwin rsity of 05:01:00 Unassigned, No [facility] ASSIGNMENT OF BENEFITS 2021-08-22 Doctor [facility] of 14:21:18 Unassigned, No [facility] US BREAST COMPLETE BILATERAL 2021-07-05 Irene Sherman [facility] versity of 19:44:50 Opal Braden childers [facility] US CHEST/INFRACLAV 2021-07-05 Irene Sherman [facility] of 19:44:50 Opal Braden childers [facility] MAMMO DIGITAL DIAGNOSTIC BILATERAL 2021-07-05 Marisa Sherman [facility] YUAN 19:12:11 Opal Braden childers [facility] MRI BRAIN W WO CONTRAST 2021-06-26 Irene Sherman [facility] of 18:14:23 Opal Braden childers [facility] COMPLETE BLOOD COUNT W/ 2021-06-19 [facility] ty of DIFFERENTIAL 15:59:42 Justin childers [facility] COMPREHENSIVE METABOLIC PANEL 2021-06-19 [facility] of 15:59:42 Justin childers [facility] MAGNESIUM LEVEL 2021-06-19 [facility] 15:59:42 [facility] PHOSPHORUS LEVEL 2021-06-19 [facility] 15:59:42 Justin childers [facility] LACTATE DEHYDROGENASE 2021-06-19 [facility] of 15:59:42 Justin Tuttle [facility] VITAMIN D 25 HYDROXY LEVEL 2021-06-19 Leslee Heredia [facility] rsity of 15:59:42 Justin childers [facility] Results CBC 2021-06-19 [facility] of 15:59:42 Justin childers [facility] MANUAL DIFFERENTIAL 2021-06-19 [facility] o f 15:59:42 Justin childers [facility] GLUCOSE LEVEL 2021-06-19 [facility] of 15:59:42 Justin childers [facility] BLOOD UREA NITROGEN 2021-06-19 [facility] o f 15:59:42 Justin childers [facility] ELECTROLYTE PANEL 2021-06-19 [facility] of 15:59:42 Justin Tuttle [facility] SERUM CREATININE 2021-06-19 [facility] 15:59:42 Justin Tuttle [facility] .GLOMERULAR FILTRATION RATE 2021-06-19 [facility] ersity of 15:59:42 Justin Tuttle [facility] CALCIUM LEVEL TOTAL 2021-06-19 [facility] o f 15:59:42 Justin Tuttle [facility] ALBUMIN LEVEL 2021-06-19 [facility] of 15:59:42 Justin Tuttle [facility] ALKALINE PHOSPHATASE 2021-06-19 [facility] of 15:59:42 Justin childers [facility] [facility] ALANINE AMINOTRANSFERASE 2021-06-19 [facility] ity of 15:59:42 Justin childers [facility] ASPARTATE AMINOTRANSFERASE 2021-06-19 [facility] rs[facility] of 15:59:42 Justin childers [facility] TOTAL PROTEIN 2021-06-19 [facility] of 15:59:42 Justin childers [facility] FRACTIONATED BILIRUBIN 2021-06[facility]19 [facility] 15[facility]59[facility]42 Justin [facility] COMPLETE BLOOD COUNT W/ 2021-03-06 [facility] ty [facility] DIFFERENTIAL 12:59:17 Justin Tuttle [facility] COMPREHENSIVE METABOLIC PANEL 2021-03-06 [facility] iversity of 12:59:17 [facility] MAGNESIUM LEVEL 2021-03-06 [facility] 12:59:17 Justin childers [facility] PHOSPHORUS LEVEL 2021-03-06 [facility] 12:59:17 Justin childers [facility] LACTATE DEHYDROGENASE 2021-03-06 [facility] 12:59:17 Justin childers [facility] VITAMIN D 25 HYDROXY LEVEL 2021-03-06 [facility] rsity of 12:59:17 Justin childers [facility] Results CBC 2021-03-06 [facility] 12:59:17 [facility] MANUAL DIFFERENTIAL 2021-03-06 [facility] o f 12:59:17 Justin childers [facility] GLUCOSE LEVEL 2021-03-06 [facility] 12:59:17 Justin childers [facility] BLOOD UREA NITROGEN 2021-03-06 [facility] o f 12:59:17 Justin childers [facility] ELECTROLYTE PANEL 2021-03-06 [facility] 12:59:17 Justin childers [facility] SERUM CREATININE 2021-03-06 [facility] 12:59:17 Justin Tuttle [facility] .GLOMERULAR FILTRATION RATE 2021-03-06 [facility] ersity of 12:59:17 Justin childers [facility] CALCIUM LEVEL TOTAL 2021-03-06 [facility] o f 12:59:17 Justin childers [facility] ALBUMIN LEVEL 2021-03-06 [facility] 12:59:17 Justin childers [facility] ALKALINE PHOSPHATASE 2021-03-06 [facility] 12:59:17 Justin childers [facility] ALANINE AMINOTRANSFERASE 2021-03-06 [facility] ity of 12:59:17 Justin childers [facility] ASPARTATE AMINOTRANSFERASE 2021-03-06 [facility]ovanna, Unive rsity of 12:59:17 [facility] TOTAL PROTEIN 2021-03-06 Leslee Heredia [place] of 12:59:17 [facility] FRACTIONATED BILIRUBIN 2021-03-06 [facility] 12:59[facility]17 [facility] Other Repair of Urinary Stress 2013-01-05 [facility] 05:00:00 Sling operation for stress 2013-01-05 [facility] incontinence (eg, fascia or 05:00:00 synthetic) Abdominal hysterectomy 1993-03-23 [facility] 00:00:00 TL - Tubal ligation [facility]-23 [facility] 00:[facility]00 Abdominoplasty [facility] Lumpectomy [facility] Plan of Care Planned Activity Planned Date Details Comments Source Future Scheduled 2032-01-14 Screening for malignant [facility] 00:00:00 neoplasm of colon Medical Ce nter (procedure) [code = 898798613] Future Scheduled 2032-01-14 Screening for malignant [facility] 00:00:00 neoplasm of colon Medical Ce nter (procedure) [code = 454775209] Future Scheduled 2032-01-14 Screening for malignant [facility] 00:00:00 neoplasm of colon Medical Ce nter (procedure) [code = 298976827] Future Scheduled 2032-01-14 Screening for malignant [facility] 00:00:00 neoplasm of colon Medical Ce nter (procedure) [code = 066507850] Future Scheduled 2032-01-14 Screening for malignant [facility] 00:00:00 neoplasm of colon Medical Ce nter (procedure) [code = 061884281] Future Scheduled 2032-01-14 Screening for malignant [facility] 00:00:00 neoplasm of colon Medical Ce nter (procedure) [code = 436179344] Future Scheduled 2027-10-30 Lipid panel (procedure) [facility] 00:00:00 [code = 91220459] Medical Ce nter Future Scheduled 2027-10-30 Lipid panel (procedure) [facility] 00:00:00 [code = 18058835] Medical Ce nter Future Scheduled 2025-01-01 Lipid panel (procedure) [facility] 00:00:00 [code = 08377530] Medical Ce nter Future Scheduled 2024-07-23 Screening for malignant [facility] 00:00:00 neoplasm of breast Medical C enter (procedure) [code = 445550359] Future Scheduled 2024-07-23 Screening for malignant [facility] 00:00:00 neoplasm of breast Medical C enter (procedure) [code = 506974610] Future Scheduled 2024-01-14 Screening for malignant [facility] 00:00:00 neoplasm of breast Medical C enter (procedure) [code = 836915001] Future Scheduled 2023-12-[address] [facility] 00:00:00 Counseling and Screening Med [facility] Center (12+) [code = Tobacco Cessation Counseling and Screening (12+)] Future Scheduled 2023-12-[address] [facility] 00:00:00 Counseling and Screening [facility] Center (12+) [code = Tobacco Cessation Counseling and Screening (12+)] Future Scheduled 2023-02-20 COVID-19 Vaccination (3 University [facility] Test 12:21:20 - Pfizer risk series) [place] [code = COVID-19 Cancer Cent er Vaccination (3 - Pfizer risk series)] Future Scheduled 2023-02-20 COVID-19 Vaccination (3 University [facility] Test 12:21:20 - Pfizer risk series) [place] [facility] [code = COVID-19 Cancer Cent er Vaccination (3 - Pfizer risk series)] Future Scheduled 2023-02-[address] [facility] 00:00:00 Counseling and Screening [facility] Center (12+) [code = Tobacco Cessation Counseling and Screening (12+)] Future Scheduled 2022-11-21 Influenza Vaccine (#1) [facility] 00:00:00 [code = Influenza Medical Ce nter Vaccine (#1)] Future Scheduled 2022-11-21 Influenza Vaccine (#1) [facility] 00:00:00 [code = Influenza Medical Ce nter Vaccine (#1)] Future Scheduled 2022-03-[address] [facility] 00:00:00 (12+) [code = DEPRESSION Med ical Center SCREENING (12+)] Future Scheduled 2022-03-[address] [facility] 00:00:00 (12+) [code = DEPRESSION Med ical Center SCREENING (12+)] Future Scheduled 2021-12-26 COVID-19 Vaccination (3 University of Test 06:39:11 - Pfizer risk series) Braden Cody [code = COVID-19 Cancer Cent er Vaccination (3 - Pfizer risk series)] [facility] (12+) [code = DEPRESSION Med ical Center SCREENING (12+)] Future Scheduled 2021-01-04 COVID-19 VACCINE (3 - [facility] 00:00[facility]00 Pfizer series) [code = Medic al Center COVID-19 VACCINE (3 - Pfizer series)] Future Scheduled 2021-01-04 COVID-19 VACCINE (3 - [facility] 00:00:00 Pfizer series) [code = Medic al Center COVID-19 VACCINE (3 - Pfizer series)] Future Scheduled 2017 SHINGLES VACCINES ([address] [facility] 00:00:00 2) [code = SHINGLES Medical Center VACCINES (1 of 2)] Future Scheduled 2017 SHINGLES VACCINES ([address] [facility] 00:00:00 2) [code = SHINGLES Medical Center VACCINES (1 of 2)] Future Scheduled 2017 SHINGLES VACCINES ([address] [facility] 00:00:00 2) [code = SHINGLES Medical Center VACCINES (1 of 2)] Future Scheduled 1988-01-13 Screening for malignant [facility] 00:00:00 neoplasm of cervix Medical C enter (procedure) [code = 179090955] Future Scheduled 1988-01-13 Screening for malignant [facility] 00:00:00 neoplasm of cervix Medical C enter (procedure) [code = 381676140] Future Scheduled 1988-01-13 Screening for malignant [facility] 00:00:00 neoplasm of cervix Medical C enter (procedure) [code = 536220104] Future Scheduled 1986 DTAP/TDAP/TD VACCINES ([address] [facility] 00:00:00 - Tdap) [code = Medical Cent er DTAP/TDAP/TD VACCINES (1 - Tdap)] Future Scheduled 1986 DTAP/TDAP/TD VACCINES ([address] [facility] 00:00:00 - Tdap) [code = Medical Cent er DTAP/TDAP/TD VACCINES (1 - Tdap)] Future Scheduled 1986 DTAP/TDAP/TD VACCINES ([address] [facility] 00:00:00 - Tdap) [code = Medical Cent er DTAP/TDAP/TD VACCINES (1 - Tdap)] Future Scheduled 1985 HEPATITIS C [facility]CRE[facility]ING [facility] 00:00:00 [code = HEPATITIS C Medical Center SCREENING] Future Scheduled 1985 HEPATITIS C [facility]:00:00 [code = HEPATITIS C Medical Center SCREENING] Future Scheduled 1985 HEPATITIS C [facility]ING [facility] 00:00:00 [code = HEPATITIS C Medical Center SCREENING] Future Scheduled [address] Human immunodeficiency [facility] 00:00:00 virus screening Medical Cent er (procedure) [code = 559333044] Future Scheduled [address] [facility] 00:00:00 virus screening Medical Cent er (procedure) [code = 329072076] Future Scheduled 1967 CT Colonography (combo) [facility] 00:00:00 [code = CT Colonography [facility] (combo)] Future Scheduled 1967 Screening for malignant [facility] 00:00:00 neoplasm of colon Medical Ce nter (procedure) [code = 503785733] Future Scheduled 1967 Screening for malignant [facility] 00:00:00 neoplasm of colon Medical Ce nter (procedure) [code = 482217078] Future Scheduled 1967 Sigmoidoscopy [code = [facility] Sigmoidoscopy] Medical Cente r Future Scheduled 1967 CT Colonography (combo) [facility] 00:00:00 [code = CT Colonography [facility] (combo)] Future Scheduled 1967 Screening for malignant [facility] 00:00:00 neoplasm of colon Medical Ce nter (procedure) [code = 721798360] Future Scheduled 1967 Screening for malignant [facility] 00:00:00 neoplasm of colon Medical Ce nter (procedure) [code = 191893339] Future Scheduled 1967 Sigmoidoscopy [code = [facility] Sigmoidoscopy] Medical Cente r Future Scheduled 1967 CT Colonography (combo) [facility] 00:00:00 [code = CT Colonography [facility] (combo)] Future Scheduled 1967 Screening for malignant [facility] 00:00:00 neoplasm of colon Medical Ce nter (procedure) [code = 306547420] Future Scheduled 1967 Screening for malignant [facility] 00:00:00 neoplasm of colon Medical Ce nter (procedure) [code = 547964904] Future Scheduled 1967 Sigmoidoscopy [code = [facility] Sigmoidoscopy] Medical Cente r Encounters Start End Encounter Admission Attending Care Care Encounter Source Date/Time Date/Time Type Type Clinicians Facility Department ID 2023-02-09 [facility] [id number] Common 08:50:00 Ajay 27565 [facility] 2022-11-19 Outpatient Walker, [facility] [id number] Common 10:21:00 Ajay 04115 [facility] 2022-11-04 Outpatient Walker, [facility] [id number] Common 12:54:00 Ajay 16198 [facility] 2022-08-26 Outpatient Walker, [facility] [id number] Common 14:10:00 Ajay 27985 [facility] 2022-08-21 Outpatient Walker, [facility] [id number] Common 09:11:00 Ajay 26507 [facility] 2022-07-28 Outpatient Walker, STLMLC STLMLC [id number] Common 09:14:01 Ajay 15653 [facility] 2022-07-10 Outpatient Walker, STLMLC STLMLC [id number] Common 10:54:01 Ajay 14978 [facility] 2022-05-05 Outpatient Walker, STLMLC STLMLC [id number] Common 08:48:00 Ajay 28558 [facility] 2022-04-29 Outpatient Walker, STLMLC STLMLC [id number] Common 14:29:00 Ajay 37925 [facility] 2022-04-23 Outpatient Walker, STLMLC STLMLC [id number] Common 07:59:00 Ajay 88085 [facility] 2022-04-08 Outpatient Walker, STLMLC STLMLC [id number] Common 15:56:00 Ajay 37375 [facility] 2022-02-19 Outpatient Walker, STLMLC STLMLC [id number] Common 08:20:00 Ajay 82366 [facility] 2021-12-26 Outpatient Walker, STLMLC STLMLC [id number] Common 16:28:00 Ajay [facility] 2021-12-25 Outpatient Walker, STLMLC STLMLC [id number] Common 08:22:00 Ajay [facility] 2021-12-24 Outpatient Walker, STLMLC STLMLC [id number] Common 11:47:02 Ajay [facility] 2021-12-20 Outpatient Walker, STLMLC STLMLC [id number] Common 12:04:00 Ajay [facility] 2021-11-19 Outpatient Walker, STLMLC STLMLC [id number] Common 08:21:00 Ajay [facility] 2021-10-16 Outpatient Walker, STLMLC STLMLC [id number] Common 09:06:00 Ajay [facility] 2021-09-17 Outpatient Walker, STLMLC STLMLC [id number] Common 10:14:00 Ajay [facility] 2021-08-23 Outpatient Walker, STLMLC STLMLC [id number] Common 10:21:01 Ajay [facility] 2021-08-22 Outpatient Walker, STLMLC STLMLC [id number] Common 10:54:00 Ajay [facility] 2021-08-21 Outpatient Walker, STLMLC STLMLC [id number] Common 09:10:00 Ajay [facility] 2021-08-01 Outpatient Walker, STLMLC STLMLC [id number] Common 11:57:01 Ajay [facility] 2021-07-25 Outpatient Walker, STLMLC STLMLC [id number] Common 15:08:00 Ajay [facility] 2021-07-16 Outpatient Walker, STLMLC STLMLC [id number] Common 09:32:00 Ajay [facility] 2021-06-19 Outpatient Walker, STLMLC STLMLC [id number] Common 08:27:01 Ajay [facility] 2021-06-14 Outpatient Walker, STLMLC STLMLC [id number] Common 08:19:00 Ajay [facility] 2021-04-17 Outpatient Walker, STLMLC STLMLC [id number] Common 14:38:38 Ajay [facility] 2021-04-17 Outpatient Walker, STLMLC STLMLC [id number] Common 14:30:47 Ajay [facility] 2021-04-17 Outpatient Walker, STLMLC STLMLC [id number] Common 14:29:36 Ajay [facility] 2021-04-17 Outpatient Walker, STLMLC STLMLC [id number] Common 14:27:52 Ajay [facility] 2021-04-17 Outpatient STLMLC STLMLC [id number] Common 14:27:12 95434 [facility] 2021-04-17 Outpatient STLMLC STLMLC [id number] Common 13:14:53 87916 [facility] 2021-04-17 Outpatient STLMLC STLMLC [id number] Common 13:11:26 20091 [facility] 2021-04-17 Outpatient Walker, STLMLC STLMLC [id number] Common 12:53:41 [facility] 90406 [facility] 2021-04-17 Outpatient Walker, STLMLC STLMLC [id number] Common 12:23:02 [facility] 03808 [facility] 2021-04-17 Outpatient Walker, STLMLC STLMLC [id number] Common 12:20:51 [facility] 88861 [facility] 2021-04-17 Outpatient STLMLC STLMLC [id number] Common 12:18:12 42257 [facility] 2021-04-17 Outpatient Millender, STLMLC STLMLC [id number] Common 11:45:32 Reema 68508 [facility] 2021-04-17 Outpatient Millender, STLMLC STLMLC [id number] Common 11:21:05 Reema 71670 [facility] 2021-04-17 Outpatient Millender, STLMLC STLMLC [id number] Common 11:08:39 Reema 15572 [facility] 2021-04-17 Outpatient Millender, STLMLC STLMLC [id number] Common 11:07:44 Reema 96492 [facility] 2021-01-15 Outpatient SYSTEM, RITA SALINAS [id number] 11:13:43 PROVIDER Yosi childers 2019-09-27 Outpatient SYSTEM, RITA SALINAS [id number] 14:51:57 PROVIDER Yosi childers 2023-03-09 2023-03-09 Outpatient ROBERT BOWMAN, [facility] [id number] 00:00:00 00:00:00 [facility] 2023-02-26 2023-02-[address] [facility] [id number] Univers 08:00:00 08:00:00 AMPARO yun [facility] 2023-02-23 2023-02-[address] [facility] [id number] Univers 14:30:00 14:30:00 AMPARO malcolm [facility] 2023-02-20 2023-02-20 Telephone [facility] 1.2.840.114 [id number] Univers 00:00:00 00:00:00 [facility] 350.1.13.10 ity of [place] 4.2.7.2.686 Benjamin as OSIEL?BLEA [id number] [address] MEDICAL OFFICE BUILDING 2023-02-05 2023-02-05 Follow-Up Leslee Heredia, 1.2.840.1 [id number] Univers 13:40:00 13:40:15 Celyne 32978.1.1 ity of 3.412.2.7 [place] .3.247919 .8 [facility] 2023-02-05 2023-02-05 Follow-Up ROBERT Heredia, 1.2.840.1 [id number] Univers 13:40:00 13:40:15 Celyne 39813.1.1 ity of 3.412.2.7 [place] .3.656709 .8 [facility] 2023-02-05 2023-02-05 Outpatient ROBERT SHERMAN [facility] [id number] 12:48:24 12:56:42 IRENE childers 2023-02-05 2023-02-05 Travel 1.2.840.1 1.2.057.846 [id number] Univers 00:00:00 00:00:00 61575.1.1 350.1.13.41 ity of 3.412.2.7 [place].3.698 [place] .3.280112 084.8 .8 [facility] 2023-02-052023-02-05 Travel 1.2.840.1 1.2.039.426 [id number] Univers 00:00:00 00:00:00 40341.1.1 350.1.13.41 ity of 3.412.2.7 2.[place]7.3.698 [place] .3.725243 084.8 .8 [facility] 2023-01-29 2023-01-[address] [facility] [id number] Univers 10:00:00 10:48:38 AMPARO ity [facility] 2023-01-29 2023-01-29 Office [facility] 1.2.840.114 [id number] Univers 10:00:00 10:48:38 Visit Amparo [employer] 350.1.13.10 it y [facility] 4.2.7.2.686 Benjamin as OSIEL?BLEA [id number] [address] 2023-01-16 2023-01-16 Telephone [facility] 1.2.434.115 [id number] Univers 00:00:00 00:00:00 AmparoTeleDNA 350.1.13.10 it y [facility] 4.2.7.2.686 Benjamin as OSIEL?BLEA [id number] [address] 2023-01-13 2023-01-13 Outpatient GC_GCBZW_Mc PRIV PRIV [id number] [facility] 00:00:00 00:00:00 Intire_E [id number] Medic al 2022-12-27 2022-12-27 Outpatient GC_GCBZW_Mc PRIV PRIV [id number] [facility] 00:00:00 00:00:00 Intire_E [id number] Medic al 2022-12-08 2022-12-08 Office JOSEMANUEL Roberson [id number] 10:00:00 11:07:35 Visit [facility] 2022-12-08 2022-12-08 Office JOSEMANUEL Bowman [id number] 10:00:00 11:07:35 Visit [facility] 2022-12-01 2022-12-01 Outpatient ROBERT BOWMAN [facility] [id number] 00:00:00 00:00:00 [facility] 2022-10-29 2022-10-29 Associate Professor Of Anthropology [place], Karol Lab Main [facility] 1.2.8 40.114 [id number] Univers 07:30:00 07:45:00 Visit Abdon Arias 350.1.13.10 ity [facility] 4.2.7.2.686 [id number] [address] 2022-10-29 2022-10-[address] [facility] [id number] Univers 07:30:00 07:30:00 ABDON ity [facility] 2022-10-29 2022-10-29 Orders Doctor ONEIDA 1.2.840.114 [id number] Univers 00:00:00 00:00:00 Only Unassigned, GINI 350.1.13.10 ity of [place] [facility] 4.2.7.2.686 Benjamin as [id number] [address] 2022-10-15 2022-10-15 Outpatient GC_GCBZW_Mc PRIV PRIV [id number] [facility] 00:00:00 00:00:00 Intire_E [id number] Medic al 2022-10-15 2022-10-15 Outpatient GC_GCBZW_Mc PRIV PRIV [id number] [facility] 00:00:00 00:00:00 Intire_E [id number] Medic al 2022-10-09 2022-10-09 Outpatient GC_GCBZW_Mc PRIV PRIV [id number] [facility] 00:00:00 00:00:00 Intire_E [id number] Medic al 2022-09-29 2022-09-29 Telemedici Irene Sherman 1.2.840.1 [id number] Univers 11:00:00 12:00:00 John Mendez 47248.1.1 ity 3.412.2.7 [place] .3.491084 MD Block [facility] 2022-09-29 2022-09-29 Telemedici Irene Delacruz 1.2.840.1 [id number] [facility] 11:00:00 12:00:00 John Mendez 31946.1.1 ity of 3.412.2.7 [place] .3.127729 MD Gupta8 [facility] 2022-09-21 2022-09-21 Emergency [facility] [id number] [facility] 13:33:00 14:45:00 [facility] 2022-09-21 2022-09-21 Emergency carmel [facility] [id number] 13:33:00 14:45:00 [facility] 2022-09-21 2022-09-21 Emergency ER [facility] [id number] [facility] 13:33:00 14:45:00 [facility] 2022-09-21 2022-09-21 Emergency ER [facility] [id number] [facility] 13:33:44 13:33:44 [facility] 2022-09-21 2022-09-21 Travel [facility] [id number] [facility] 00:[facility]:00 00:00:00 [facility] 2022-09-21 2022-09-21 Travel [facility] [id number] [facility] 00:00:00 00:00:00 [facility] 2022-09-17 2022-09-17 Outpatient ROBERT BOWMAN, [facility] [id number] 00:00:00 00:00:00 [facility] 2022-09-09 2022-09-09 Telephone Sandip [facility] 1.2.097.296 [id number] Univers 00:00:00 00:00:00 [employer] 350.1.13.10 it y of [place] 4.2.7.2.686 Benjamin as OSIEL?BLEA [id number] [address] OFFICE [facility] 2022-09-05 2022-09-05 Telephone Sandip [facility] 1.2.380.214 [id number] Univers 00:00:00 00:00:00 [facility] 350.1.13.10 it y of [place] 4.2.7.2.686 Benjamin as OSIEL?BLEA [id number] [address] OFFICE [facility] 2022-09-03 2022-09-03 Telephone [facility] 1.2.840.114 [id number] Univers 00:00:00 00:00:00 [facility] 350.1.13.10 ity of [place] 4.2.7.2.686 Benjamin as OSIEL?BLEA [id number] [address] OFFICE [facility] 2022-09-01 2022-09-01 Office [facility] [id number] 11:30:00 12:13:27 Visit [facility] 2022-09-01 2022-09-01 Office [facility] [id number] 11:30:00 12:13:27 Visit [facility] 2022-08-29 2022-08-29 Orders Doctor MOHAMUD 1.2.840.114 [id number] Univers 00:00:00 00:00:00 Only Unassigned, GINI 350.1.13.10 ity of [place] [facility] 4.2.7.2.686 Benjamin as [id number] [address] 2022-08-25 2022-08-25 (IN/ASP) [facility] [id number] C ommon 00:00:00 00:00:00 INJ ASP [facility] 2022-08-21 2022-08-21 (TEL) [facility] [id number] Co mmon 00:00:00 00:00:00 [facility] 2022-08-20 2022-08-[address] 1.2.840.1 [id number] Univers 13:40:00 13:55:20 ne Irene 73849.1.1 ity of [place] 3.412.2.7 [place] .3.103580 MD Block [facility] 2022-08-20 2022-08-20 Telemedici ROBERT Sherman, 1.2.840.1 [id number] Univers 13:40:00 13:55:20 ne Irene 72048.1.1 ity of [place] 3.412.2.7 [place] .3.003674 MD Block [facility] 2022-08-14 2022-08-14 OFFICE STLMLC STLMLC [id number] Co mmon 00:00:00 00:00:00 VISIT [facility] 3 [facility] 2022-08-14 2022-08-14 (TEL) STLMLC STLMLC [id number] Co mmon 00:00:00 00:00:00 [facility] 2022-08-14 2022-08-14 (WEB) STLMLC STLMLC [id number] Co mmon 00:00:00 00:00:00 [facility] 2022-08-13 2022-08-13 Ancillary Sherman, 1.2.840.1 [id number] Univers 10:30:00 11:00:00 Procedure Irene 82895.1.1 i ty of [place] 3.412.2.7 [place] .3.393434 MD Block [facility] 2022-08-13 2022-08-13 Ancillary ROBERT Sherman, 1.2.840.1 [id number] Univers 10:30:00 11:00:00 Procedure Irene 04458.1.1 i ty of [place] 3.412.2.7 [place] .3.898182 MD Block [facility] 2022-08-13 2022-08-13 Ancillary Sherman, 1.2.840.1 [id number] Univers 08:00:00 08:30:00 Procedure Irene 41111.1.1 i ty of [place] 3.412.2.7 [place] .3.067912 MD .8 [facility] 2022-08-13 2022-08-13 Ancillary ROBERT Sherman, 1.2.840.1 [id number] Univers 08:00:00 08:30:00 Procedure Irene 91732.1.1 i ty of Op[place] 3.412.2.7 [place] .3.267134 MD Block [facility] 2022-08-13 2022-08-13 Travel 1.2.840.1 1.2.996.129 7904 [id number] Univers 00:00:00 00:00:00 05626.1.1 350.1.13.41 ity of 3.412.2.7 2.2.7.3.698 [place] .3.951090 08Erasmo.8 MD Block [facility] 2022-08-13 2022-08-13 Travel 1.2.840.1 1.2.219.433 6652 [id number] Univers 00:00:00 00:00:00 86054.1.1 350.1.13.41 ity of 3.412.2.7 2.2.7.3.698 [place] .3.843425 084.8 MD Block [facility] 2022-08-07 2022-08-07 Telephone Leslee Heredia, 1.2.840.1 [id number] Univers 00:00:00 00:00:00 Celyne 34574.1.1 ity of 3.412.2.7 [place] .3.759289 MD Block [facility] 2022-08-07 2022-08-07 Telephone Leslee Heredia, 1.2.840.1 [id number] Univers 00:00:00 00:00:00 Celyne 05977.1.1 ity of 3.412.2.7 [place] .3.278034 MD Block [facility] 2022-08-04 2022-08-04 Follow-Up Leslee Heredia, 1.2.840.1 [id number] Univers 10:20:00 11:11:21 Celyne 05193.1.1 ity of 3.412.2.7 [place] .3.233524 MD Block [facility] 2022-08-04 2022-08-04 Follow-Up ROBERT Heredia, 1.2.840.1 [id number] Univers 10:20:00 11:11:21 Celtello 02999.1.1 ity of 3.412.2.7 [place] .3.697152 MD Block [facility] 2022-08-04 2022-08-04 Travel 1.2.840.1 1.2.703.715 0688 [id number] Univers 00:00:00 00:00:00 23246.1.1 350.1.13.41 ity of 3.412.2.7 2.2.7.3.698 [place] .3.603160 084.8 MD Block [facility] 2022-08-04 2022-08-04 Travel 1.2.840.1 1.2.362.592 9775 [id number] Univers 00:00:00 00:00:00 51127.1.1 350.1.13.41 ity of 3.412.2.7 2.2.7.3.698 [place] .3.673948 084.8 MD Block [facility] 2022-08-01 2022-08-01 Orders Igor, [facility] [id number] 00:00:00 00:00:00 Only [facility] 2022-08-01 2022-08-01 Orders Igor, [facility] [id number] 00:00:00 00:00:00 Only [facility] 2022-07-30 2022-07-30 OFFICE STLMLC STLML[facility] [id number] Co mmon 00:00:00 00:00:00 VISIT Ad UNDERWOOD PT - CHI LEVEL 4 [facility] 2022-07-30 2022-07-30 (WEB) STLMLC STLMLC [id number] Co mmon 00:00:00 00:00:00 [facility] 2022-07-28 2022-07-[address], 1.2.840.1 [id number] Univers 00:00:00 00:00:00 Only Irene 42323.1.1 ity of [place] 3.412.2.7 [place] .3.994774 MD Gupta8 [facility] 2022-07-28 2022-07-[address], 1.2.840.1 [id number] Univers 00:00:00 00:00:00 Only Irene 17586.1.1 ity of [place] 3.412.2.7 [place] .3.790377 MD Gupta8 [facility] 2022-07-25 2022-07-25 Telephone Glenn, 1.2.840.1 [id number] [id number] Univers 00:00:00 00:00:00 Bella Dunn 16313.1.1 ity of 3.412.2.7 [place] .3.396209 .8 [facility] 2022-07-25 2022-07-25 Telephone Glenn, 1.2.840.1 [id number] [id number] Univers 00:00:00 00:00:00 Bella Dunn 39365.1.1 ity of 3.412.2.7 [place] .3.020821 .8 [facility] 2022-07-24 2022-07-24 Telephone [facility] 1.2.288.022 6165 [id number] Univers 00:00:00 00:00:00 PeerPong 350.1.13.10 it y of [place] 4.2.7.2.686 Benjamin as OSIEL?BLEA [phone] Or dical KNEY [address] [place] [facility] 2022-07-23 2022-07-23 Associate Professor Of Anthropology Karol Ho Lab Main [facility] 1.2.8 40.114 [id number] Univers 12:15:00 12:30:00 Visit Abdon Arias 350.1.13.10 ity of [place] 4.2.7.2.686 [place] PROFESS[place] [phone] [address] 2022-07-23 2022-07-23 Outpatient R MARY, [facility] [id number] Univers 12:15:00 12:15:00 ABDON malcolm of [facility] 2022-07-23 2022-07-23 Ancillary Leslee Heredia, 1.2.840.1 [id number] Univers 09:50:00 10:10:00 Procedure Celyne 34379.1.1 it y of 3.412.2.7 [place] .3.903864 MD Gupta8 [facility] 2022-07-23 2022-07-23 Ancillary ROBERT Heredia, 1.2.840.1 [id number] Univers 09:50:00 10:10:00 Procedure Celyne 56201.1.1 it y of 3.412.2.7 [place] .3.898640 MD Gupta8 [facility] 2022-07-23 2022-07-23 Ancillary ROBERT Heredia, 1.2.840.1 [id number] Univers 08:30:00 09:15:00 Procedure Celyne 52978.1.1 it y of 3.412.2.7 [place] .3.065567 MD Block [facility] 2022-07-23 2022-07-23 Ancillary Leslee Heredia, 1.2.840.1 [id number] Univers 08:30:00 09:15:00 Procedure Celyne 03027.1.1 it y of 3.412.2.7 [place] .3.448686 MD Gupta8 [facility] 2022-07-23 2022-07-23 Ancillary ROBERT Heredia, 1.2.840.1 [id number] Univers 07:15:00 08:15:00 Procedure Celyne 17576.1.1 it y of 3.412.2.7 [place] .3.867907 MD Block [facility] 2022-07-23 2022-07-23 Ancillary Leslee Heredia, 1.2.840.1 [id number] Univers 07:15:00 08:15:00 Procedure Celyne 99036.1.1 it y of 3.412.2.7 [place] .3.812419 MD Block [facility] 2022-07-23 2022-07-23 Outpatient ROBERT HEREDIA MDA MDA [id number] 06:34:05 06:42:59 JUSTIN Yosi vinh childers 2022-07-23 2022-07-23 Orders Doctor ONEIDA 1.2.840.114 [id number] Univers 00:00:00 00:00:00 Only Unassigned, GINI 350.1.13.10 ity of [place] [facility] 4.2.7.2.686 Benjamin as [phone] [facility] [address] 2022-07-23 2022-07-23 Travel 1.2.840.1 1.2.323.890 0296 [id number] Univers 00:00:00 00:00:00 26945.1.1 350.1.13.41 ity of 3.412.2.7 2.2.7.3.698 [place] .3.541605 084.8 MD Block [facility] 2022-07-23 2022-07-23 Travel 1.2.840.1 1.2.621.916 2098 [id number] Univers 00:00:00 00:00:00 21297.1.1 350.1.13.41 ity of 3.412.2.7 2.2.7.3.698 [place] .3.006204 084.8 MD Block [facility] 2022-06-20 2022-06-20 Telephone Leslee Heredia, 1.2.840.1 [id number] Univers 00:00:00 00:00:00 Justin 40509.1.1 ity of 3.412.2.7 [place] .3.174936 MD Block [facility] 2022-06-20 2022-06-20 Telephone Leslee Heredia, 1.2.840.1 [id number] Univers 00:00:00 00:00:00 Justin 20744.1.1 ity of 3.412.2.7 [place] .3.967157 MD .8 [facility] 2022-06-18 2022-06-18 Outpatient ROBERT BOWMAN, [facility] [id number] 00:00:00 00:00:00 [facility] 2022-06-16 2022-06-16 Outpatient ROBERT BOWMAN, [facility] [id number] 00:00:00 00:00:00 [facility] 2022-06-16 2022-06-16 Telephone Portia, [facility] [id number] 00:00:00 00:00:00 [facility] 2022-06-16 2022-06-16 [facility] [id number] 00:00:00 00:00:00 [facility] 2022-05-12 2022-05-12 Telephone Igor, [facility] [id number] [facility] 00:00:00 00:00:00 [facility] 2022-05-12 2022-05-12 Telephone Igor, [facility] [id number] [facility] 00:00:00 00:00:00 [facility] 2022-05-02 2022-05-02 (TEL) [facility] [id number] Co mmon 00:00:00 00:00:00 [facility] 2022-04-30 2022-04-30 Office ROBERT Bowman, [facility] [id number] 13:00:00 13:56:03 Visit [facility] 2022-04-30 2022-04-30 Office Meccamariela, [facility] [id number] 13:00:00 13:56:03 Visit [facility] 2022-04-29 2022-04-29 OFFICE [facility] [id number] Co mmon 00:00:00 00:00:00 VISIT Spirit ESTAB PT - CHI LEVEL 3 [facility] 2022-04-29 2022-04-29 (TEL) STLMLC STLC [id number] Co mmon 00:00:00 00:00:00 [facility] 2022-04-28 2022-04-28 (TEL) STLMLC STLMLC [id number] Co mmon 00:00:00 00:00:00 [facility] 2022-04-23 2022-04-23 OFFICE STLMLC STLC [id number] Co mmon 00:00:00 00:00:00 VISIT Spirit ESTAB PT - CHI LEVEL 4 [facility] 2022-04-22 2022-04-22 Telephone Pierre, [facility] [id number] 00:00:00 00:00:00 [facility] 2022-04-22 2022-04-22 Telephone Pierre, [facility] [id number] 00:00:00 00:00:00 [facility] 2022-04-11 2022-04-11 Telephone Leslee Garciae, 1.2.840.1 [id number] Univers 00:00:00 00:00:00 Justin 18969.1.1 ity of 3.412.2.7 [place] .3.414272 MD Gupta8 [facility] 2022-04-11 2022-04-11 Glenny Sherman, 1.2.840.1 [id number] Univers 00:00:00 00:00:00 Irene 71395.1.1 ity of [place] 3.412.2.7 [place] .3.746716 MD Gupta8 [facility] 2022-04-11 2022-04-11 Telephone Leslee Heredia, 1.2.840.1 [id number] Univers 00:00:00 00:00:00 Justin 30916.1.1 ity of 3.412.2.7 [place] .3.726153 MD Gupta8 [facility] 2022-04-11 2022-04-11 Telephone Leslee Heredia, 1.2.840.1 [id number] Univers 00:00:00 00:00:00 Celtello 94818.1.1 ity of 3.412.2.7 [place] .3.083897 .8 [facility] 2022-04-11 2022-04-11 Refhanh Sherman, 1.2.840.1 [id number] Univers 00:00:00 00:00:00 Irene 07027.1.1 ity of [place] 3.412.2.7 [place] .3.530752 .8 [facility] 2022-04-11 2022-04-11 Telephone Leslee Heredia, 1.2.840.1 [id number] Univers 00:00:00 00:00:00 Justin 94981.1.1 ity of 3.412.2.7 [place] .3.331665 .8 [facility] 2022-04-09 2022-04-09 (TEL) [facility] STLC [id number] Co mmon 00:00:00 00:00:00 [facility] 2022-04-04 2022-04-04 (TEL) [facility] STLC [id number] Co mmon 00:00:00 00:00:00 [facility] 2022-03-31 2022-03-[address] [facility] [id number] 13:00:00 13:49:10 Visit [facility] 2022-03-31 2022-03-31 Office JOSEMANUEL Bowman [id number] 13:00:00 13:49:10 Visit [facility] 2022-03-31 2022-03-31 (TEL) [facility] STLC [id number] Co mmon 00:00:00 00:00:00 [facility] 2022-03-18 2022-03-19 Inpatient ROBERT [facility]OWMAN [facility] Surgery [id number] [facility] 08:09:00 11:30:00 [facility] 2022-03-18 2022-03-19 [facility] JOSEMANUEL Roberson [id number] 08:09:00 11:30:00 Encounter [facility] 2022-03-18 2022-03-19 [facility] [id number] 08:09:00 11:30:00 Encounter [facility] 2022-03-18 2022-03-18 Anesthesia TanAnn-Marie adan [facility] [id number] [facility] 11:05:00 13:40:00 Event [facility] 2022-03-18 2022-03-18 Anesthesia TanAnn-Marie adan [facility] [id number] [facility] 11:05:00 13:40:00 Event [facility] 2022-03-18 2022-03-18 [facility], [facility] [id number] 11:05:00 12:50:00 [facility] 2022-03-18 2022-03-18 [facility] [id number] 11:05:00 12:50:00 [facility] 2022-03-18 2022-03-18 Travel [facility] [id number] [facility] 00:00:00 00:00:00 [facility] 2022-03-18 2022-03-18 Travel [facility] [id number] [facility] 00:00:00 00:00:00 [facility] 2022-03-13 2022-03-13 Outpatient ROBERT BOWMAN, [facility] [id number] SLSL 11:33:08 23:59:00 [facility] 2022-03-13 2022-03-13 [facility] [id number] 11:33:08 23:59:00 Encounter [facility] 2022-03-13 2022-03-13 [facility] [id number] 11:33:08 23:59:00 Encounter [facility] 2022-03-12 2022-03-[address] [facility] [id number] Univers 14:00:00 14:00:00 MASTER ANSTACY ity [facility] [place] [facility] 2022-03-11 2022-03-11 (IN/ASP) STLMLC STLMLC [id number] C ommon 00:00:00 00:00:00 INJ ASP [facility] 2022-03-10 2022-03-10 Clinical Igor, [facility] [id number] 13:30:00 15:19:01 Support [facility] 2022-03-10 2022-03-10 Clinical EL Igor, [facility] [id number] 13:30:00 15:19:01 Support [facility] 2022-03-06 2022-03-06 Telephone Fadner, [facility] [id number] 00:00:00 00:00:00 [facility] 2022-03-06 2022-03-06 Telephone Fadner, [facility] [id number] 00:00:00 00:00:00 [facility] 2022-03-04 2022-03-04 OFFICE STLC STLC [id number] Co mmon 00:00:00 00:00:00 VISIT [facility] CHI LEVEL 4 [facility] 2022-02-27 2022-02-27 Patient Doctor [facility] 1.2.840.114 [id number] Univers 00:00:00 00:00:00 Secure Msg Unassigned, [place] 350.1.13.10 ity of [place] 4.2.7.2.686 Aretha NEW [phone] Or dical NAL [address] BU[address]ING 2022-02-27 2022-02-27 (WEB) STLMLC STLMLC [id number] Co mmon 00:00:00 00:00:00 [facility] 2022-02-25 2022-02-25 (TEL) STLMLC STLMLC [id number] Co mmon 00:00:00 00:00:00 [facility] 2022-02-25 2022-02-25 (TEL) STLMLC STLC [id number] Co mmon 00:00:00 00:00:00 [facility] 2022-02-24 2022-02-24 Telephone Juve IAGABY 1.2.840.114 [id number] Univers 00:00:00 00:00:00 Luis ABBOTT 350.1.13.10 itAlyson 4.2.7.2.686 Benjaminmaxine cash SARITAIZZY [phone] [address] 2022-02-24 2022-02-24 (WEB) STLMLC STLC [id number] Co mmon 00:00:00 00:00:00 [facility] 2022-02-20 2022-02-20 OFFICE STLC STLC [id number] Co mmon 00:00:00 00:00:00 VISIT [facility] LEVEL 4 [facility] 2022-02-19 2022-02-19 Outpatient ROBERT BOWMAN [facility] [id number] 00:00:00 00:00:00 [facility] 2022-02-17 2022-02-17 Office ROBERT Bowman [facility] [id number] 10:30:00 11:45:47 Visit [facility] 2022-02-16 2022-02-16 (WEB) [facility] STLC [id number] Co mmon 00:00:00 00:00:00 [facility] 2022-02-12 2022-02-12 Outpatient [facility] [id number] SLSMaribell 07:13:00 10:18:00 [facility] 2022-02-12 2022-02-12 [facility] Portia [facility] [id number] 07:13:00 10:18:00 Encounter [facility] 2022-02-12 2022-02-12 Anesthesia Bernabe Starkey [facility] [id number] 09:25:00 09:40:00 Event Wali Miles [facility] 2022-02-12 2022-02-12 Surgery Portia, [facility] [id number] 09:00:00 09:30:00 [facility] 2022-02-12 2022-02-12 (TEL) [facility] [id number] Co mmon 00:00:00 00:00:00 [facility] 2022-02-11 2022-02-11 Outpatient EL SLS SLSL [id number] SLSL 10:51:46 23:59:00 2022-02-11 2022-02-11 Hospital EL [facility] [id number] 10:00:00 10:00:00 [facility] 2022-02-10 2022-02-10 Travel [facility] [id number] [facility] 00:00:00 00:00:00 [facility] 2022-02-06 2022-02-06 Telephone Candelaria [facility] 1.2.840.114 [id number] Univers 00:00:00 00:00:00 [facility] 350.1.13.10 ity of [place] 4.2.7.2.686 Benjamin as OSIEL?BLEA [phone] Or charlene PERESEY [address] [place] [facility] 2022-01-27 2022-01-27 Telephone [facility] 1.2.115.852 [id number] Univers 00:00:00 00:00:00 Veronika ABBOTT 350.1.13.10 ity of [place].7.2.686 [place] PROF[place] [phone] [facility] [address] BU[facility] 2022-01-24 2022-01-[address] [facility] [id number] Univers 14:40:00 15:10:36 VERONIKA malcolm o f [facility] 2022-01-24 2022-01-24 Office [facility] 1.2.840.114 [id number] Univers 14:40:00 15:10:36 Visit Veronika ABBOTT 350.1.13.10 ity of [place] 4.2.7.2.686 [place] [facility] [phone] Or dical NAL [address] BU[address]ING 2022-01-24 2022-01-24 Glenny Oropeza [facility] 1.2.840.114 [id number] Univers 00:00:00 00:00:00 PeerPong 350.1.13.10 it y of [place] 4.2.7.2.686 Benjamin as OSIEL?BLEA [phone] Or dical KNEY [address] [place] [facility]ILD[facility] 2022-01-21 2022-01-22 Associate Professor Of Anthropology Tech, [facility] Sleep Lab [facility] 1.2 .840.114 [id number] Univers 09:00:00 07:30:28 Visit Luis An 350.1.13. 10 ity of [place] 4.2.7.2.686 [place] [phone] [facility] [address] 2022-01-22 2022-01-22 Telephone Portia [facility] [id number] [facility] 00:00:00 00:00:00 [facility] 2022-01-21 2022-01-21 Outpatient R LUIS AN [facility] [id number] Univers 09:00:00 09:00:00 LUIS AN ity [facility] 2022-01-21 2022-01-21 Orders Doctor MOHAMUD 1.2.840.114 [id number] Univers 00:00:00 00:00:00 Only Unassigned, GINI 350.1.13.10 ity of [place] [facility] 4.2.7.2.686 Benjamin as [phone] [facility] [address] 2022-01-15 2022-01-15 Outpatient R LUIS AN [facility] [id number] Univers 13:20:00 13:20:00 LUIS AN ity [facility] [place] [facility] 2022-01-14 2022-01-14 (TEL) [facility] [id number] Co mmon 00:00:00 00:00:00 [facility] 2022-01-13 2022-01-13 Office ROBERT Bowman [facility] [id number] [facility] 10:00:00 12:27:39 Visit Agustin [facility] 2022-01-01 2022-01-01 Associate Professor Of Anthropology Karol Ho Lab Main [facility] 1.2.8 40.114 [id number] Univers 07:30:00 07:45:00 Visit Abdon Arias 350.1.13.10 ity of [place] 4.2.7.2.686 [place] E[place]ER[place] [phone] Or dical [facility] [address] [facility] 2022-01-01 2022-01-[address] [facility] [id number] Univers 07:30:00 07:30:00 ABDON [facility] [place] [facility] 2022-01-01 2022-01-01 Orders Doctor ONEIDA 1.2.840.114 [id number] Univers 00:00:00 00:00:00 Only Unassigned, [place] 350.1.13.10 ity of [place] [facility] 4.2.7.2.686 Benjamin as [phone] [address] 2021-12-31 2021-12-31 Telephone [facility] 1.2.115.339 [id number] Univers 00:00:00 00:00:00 [facility] 350.1.13.10 it y of [place] 4.2.7.2.686 Benjamin as OSIEL?BLEA [phone] Or dical KNEY 092 [facility] 2021-12-31 2021-12-31 (TEL) STLC STLC [id number] Co mmon 00:00:00 00:00:00 [facility] 2021-12-26 2021-12-26 (TEL) STLMLC STLMLC [id number] Co mmon 00:00:00 00:00:00 [facility] - [facility] 2021-12-25 2021-12-25 Outpatient R CHARITY FLORES [facility] [id number] Univers 10:45:00 12:18:18 ity of [facility] 2021-12-25 2021-12-25 Office Charity Flores [facility] 1.2.840.114 [id number] Univers 10:45:00 12:18:18 Visit E SPECIALTY 350.1.13.10 ity of [place] 4[place].7.2.686 [place] CENTER AT [phone] Or abanils ROJO 201 [facility] 2021-12-25 2021-12-25 Office ROBERT Heredia, 1.2.840.1 [id number] Univers 08:20:00 09:03:05 Visit Justin 46249.1.1 ity of 3.412.2.7 [place] .3.118839 .8 [facility] 2021-12-25 2021-12-25 Outpatient ROBERT SHERMAN [facility] [id number] 06:59:45 07:05:58 IRENE Nava n 2021-12-25 2021-12-25 Travel 1.2.840.1 1.2.857.638 [id number] Univers 00:00:00 00:00:00 91340.1.1 350.1.13.41 ity of 3.412.2.[place].698 [place] .3.[place] 084.8 .8 [facility] 2021-12-25 2021-12-25 OFFICE [facility] [id number] Co mmon 00:00:00 00:00:00 VISIT EST Spir it PT LEVEL 3 - [facility] 2021-12-23 2021-12-[address] [facility] [id number] Univers 13:00:00 14:14:27 CHRIS RODGERS itmichelle [facility] [place] [facility] 2021-12-23 2021-12-23 Office Amparo Oropeza [facility] 1.2.840.114 [id number] Univers 13:00:00 14:14:27 Visit Chris Rodgers [facility] 350.1.13. 10 ity of [place] 4.2.7.2.686 Benjamin as OSIEL?BLEA [phone] Or abanils AVITIA 092 [facility] OFFICE BUILDING 2021-12-23 2021-12-23 OFFICE [facility] [id number] Co mmon 00:00:00 00:00:00 VISIT [facility] LEVEL 4 [facility] 2021-12-16 2021-12-16 (TEL) [facility] [id number] Co mmon 00:00:00 00:00:00 [facility] 2021-12-06 2021-12-06 Orders Doctor ONEIDA 1.2.840.114 [id number] Univers 00:00:00 00:00:00 Only Unassigned, GINI 350.1.13.10 ity of [place] [facility] 4.2.7.2.686 Benjamin as [phone] [facility] ami [address] 2021-12-02 2021-12-02 Glenny Sherman 1.2.840.1 [id number] Univers 00:00:00 00:00:00 Irene 09914.1.1 ity of [place] 3.412.2.7 [place] .3.821519 .8 [facility] 2021-12-02 2021-12-02 (TEL) [facility] [id number] Co mmon 00:00:00 00:00:00 [facility] 2021-12-02 2021-12-02 (TEL) [facility] [id number] Co mmon 00:00:00 00:00:00 [facility] 2021-11-29 2021-11-29 Francisca Elizabeth 1.2.840.1 [id number] Univers 00:00:00 00:00:00 Bella Dunn 20494.1.1 ity of 3.412.2.7 [place] .3.144020 .8 [facility] 2021-11-25 2021-11-25 Orders Doctor ONEIDA 1.2.840.114 [id number] Univers 00:00:00 00:00:00 Only Unassigned, GINI 350.1.13.10 ity of [place] [facility] 4.2.7.2.686 Benjamin as [phone] Medi ami 00[address] 2021-11-16 2021-11-16 Emergency X Ana SINGER [facility] ERT [id number] Univers 15:20:00 16:42:00 ity of [facility] 2021-11-16 2021-11-16 Emergency Ana Singer [facility] 1.2.840.114 [id number] Univers 15:20:00 16:42:00 Katalina ABBOTT 350.1.13.10 i ty of [place] 4.2.7.2.686 [facility] [phone] [facility] 084 Branch 2021-11-15 2021-11-15 Telephone Charity Flores [facility] 1.2.840.114 [id number] Univers 00:00:00 00:00:00 E HEALTH 350.1.13.10 it y of CANCER 4.2.7.2.686 [facility] [place] [facility] - [phone] [facility] [address] 2021-11-06 2021-11-06 Outpatient R LUIS AN [facility] [id number] Univers 16:00:00 16:00:00 LUIS AN ity [facility] 2021-10-29 2021-10-[address], 1.2.840.1 [id number] Univers 00:00:00 00:00:00 Irene 81495.1.1 ity of [place] 3.412.2.7 [place] .3.903931 .8 [facility] 2021-10-29 2021-10-29 Telephone Glenn, 1.2.840.1 [id number] Univers 00:00:00 00:00:00 Bella Dunn 10862.1.1 ity of 3.412.2.7 [place] .3.947100 .8 [facility] 2021-10-28 2021-10-28 (TEL) [facility] [id number] Co mmon 00:00:00 00:00:00 [facility] 2021-10-19 2021-10-19 Outpatient R LUIS AN [facility] [id number] Univers 20:00:00 20:00:00 LUIS AN ity [facility] [place] [facility] 2021-10-18 2021-10-18 Outpatient R LUIS AN [facility] [id number] Univers 07:30:00 07:30:00 LUIS AN ity of [facility] 2021-10-15 2021-10-15 Telephone Juve [facility] 1.2.840.114 [id number] Univers 00:00:00 00:00:00 Luis ABBOTT 350.1.13.10 ity of [place].2.[place] [phone] Or dical [facility] 085 [facility] 2021-10-14 2021-10-14 Orders Doctor ONEIDA 1.2.840.114 [id number] Univers 00:00:00 00:00:00 Only Unassigned, GINI 350.1.13.10 ity of [place] [facility] 4.2.7.2.686 Benjamin as [phone] [place] [address] [address] 2021-10-01 2021-10-01 (WEB) STLMLC STLMLC [id number] Co mmon 00:00:00 00:00:00 [facility] 2021-09-27 2021-09-[address], 1.2.840.1 [id number] Univers 00:00:00 00:00:00 Only Irene 90694.1.1 ity of [place] 3.412.2.7 [place] .3.813611 MD Block [facility] 2021-09-27 2021-09-[address], 1.2.840.1 [id number] Univers 00:00:00 00:00:00 Only Irene 01485.1.1 ity of [place] 3.412.2.7 [place] .3.157629 MD Block [facility] 2021-09-27 2021-09-[address], 1.2.840.1 [id number] Univers 00:00:00 00:00:00 Only Irene 25175.1.1 ity of [place] 3.412.2.7 [place] .3.136036 MD Block [facility] 2021-09-27 2021-09-27 Telephone Glenn, 1.2.840.1 [id number] Univers 00:00:00 00:00:00 Bella Dunn 43395.1.1 ity of 3.412.2.7 [place] .3.402370 MD Gupta8 [facility] 2021-09-19 2021-09-19 OFFICE STLC STLC [id number] Co mmon 00:00:00 00:00:00 VISIT [facility] LEVEL 4 [facility] 2021-09-11 2021-09-11 (TEL) STLMLC STLMLC [id number] Co mmon 00:00:00 00:00:00 [facility] 2021-09-04 2021-09-04 Orders Doctor MOHAMUD 1.2.840.114 [id number] Univers 00:00:00 00:00:00 Only Unassigned, GINI 350.1.13.10 ity of [place] [facility] 4.2.7.2.686 Benjamin as [phone] [place] [address] [address] 2021-09-04 2021-09-04 Telephone Glenn, 1.2.840.1 [id number] Univers 00:00:00 00:00:00 Bella Dunn 24844.1.1 ity of 3.412.2.7 [place] .3.090859 MD Block [facility] 2021-09-04 2021-09-[address] 1.2.840.1 [id number] Univers 00:00:00 00:00:00 Only Irene 93016.1.1 ity of [place] 3.412.2.7 [place] .3.245363 MD Gupta8 [facility] 2021-09-03 2021-09-03 (TEL) [facility] STLC [id number] Co mmon 00:00:00 00:00:00 [facility] 2021-08-22 2021-08-22 Associate Professor Of Anthropology [place], Adc Lab Main [facility] 1.2.8 40.114 [id number] Univers 09:45:00 10:00:00 Visit Abdon Arias MILENA 350.1.13.10 ity of [place] [phone] Or dical NAL 353 [facility] 2021-08-22 2021-08-[address] [facility] [id number] Univers 09:45:00 09:45:00 ABDON ity [facility] [place] [facility] 2021-08-22 2021-08-22 Orders Doctor ONEIDA 1.2.840.114 [id number] Univers 00:00:00 00:00:00 Only Unassigned, GINI 350.1.13.10 ity of [facility] 4.2.7.2.686 Benjamin as [phone] [address] 2021-08-22 2021-08-22 OFFICE STLC STLC [id number] Co mmon 00:00:00 00:00:00 VISIT Spirit ESTAB PT - CHI LEVEL 4 [facility] 2021-08-22 2021-08-22 (WELLNESS) STLC STLC [id number] Common 00:00:00 00:00:00 Wellness Spiri t Visit - CHI [facility] 2021-08-22 2021-08-22 (TEL) STLC STLC [id number] Co mmon 00:00:00 00:00:00 Spirit - [facility]I [facility] 2021-08-21 2021-08-21 Office [facility] 1.2.816.236 [id number] [facility] 10:00:00 10:20:00 Visit Luis ABBOTT 350.1.13.10 ity [facility] 4.2.[place] [phone] Or dical NAL 085 [facility] 2021-08-21 2021-08-21 Outpatient R LUIS AN [facility] [id number] Univers 10:00:00 10:00:00 LUIS AN ity [facility] [place] [facility] 2021-08-13 2021-08-13 Telephone Glenn 1.2.840.1 [id number] Univers 00:00:00 00:00:00 Bella ReynaAlonso 30707.1.1 ity of 3.412.2.7 [facility]3.964470 MD Gupta8 [facility] 2021-08-09 2021-08-11 Outside [facility] [id number] Memoria 14:19:50 04:59:59 Medical r Physicians 00 l Records Bariatric Raheem n Surgery 2021-08-10 2021-08-10 Emergency X Ana SINGER [facility] ERT [id number] Univers 19:42:00 22:11:00 ity of [facility] 2021-08-10 2021-08-10 Emergency Ana Singer [facility] 1.2.840.114 [id number] Univers 19:42:00 22:11:00 Katalina ABBOTT 350.1.13.10 i ty of [place] 4.2.7.2.686 [facility] [phone] [facility] [address] 2021-08-10 2021-08-10 Orders Doctor ONEIDA 1.2.840.114 [id number] Univers 00:00:00 00:00:00 Only Unassigned, GINI 350.1.13.10 ity of [facility] 4.2.7.2.686 [facility] [phone] [facility] [address] 2021-08-02 2021-08-02 (TEL) [facility] [id number] Co mmon 00:00:00 00:00:00 [facility] 2021-08-01 2021-08-01 (TEL) [facility] [id number] Co mmon 00:00:00 00:00:00 [facility] 2021-07-29 2021-07-29 Outpatient R CHRIS RODGERS [facility] [id number] Univers 11:20:00 12:31:29 CHRIS RODGERS ity of [facility] 2021-07-29 2021-07-29 Office Candelaria [facility] 1.2.840.114 [id number] Univers 11:20:00 12:31:29 Visit Chris [facility] 350.1.13.10 ity of [place] 4.2.7.2.686 Benjamin as OSIEL?BLEA [phone] Or charlene [address] MEDICAL OFFICE BUILDING 2021-07-29 2021-07-[address] [facility] [id number] Univers 11:20:00 11:20:00 CHRIS RODGERS [facility] [place] [facility] 2021-07-29 2021-07-29 Telephone [facility] [id number] 00:00[facility]00 00:00:00 [facility] 2021-07-29 2021-07-29 (TEL) [facility] [id number] Co mmon 00:00:00 00:00:00 Spirit - CHI [facility] 2021-07-24 2021-07-24 OFFICE [facility] [id number] Co mmon 00:00:00 00:00:00 VISIT Spirit [facility] PT - CHI LEVEL 4 [facility] 2021-07-22 2021-07-22 Telephone Glenn 1.2.840.1 [id number] [facility] 00:00:00 00:00:00 Bella Dunn 03488.1.1 ity of 3.412.2.7 [place] .3.421271 .8 [facility] [place] 2021-07-19 2021-07-[address] [facility] [id number] Univers 08:40:00 09:23:07 CHRIS RODGERS [facility] [place] [facility] 2021-07-19 2021-07-[address] [facility] [id number] Univers 08:40:00 09:23:07 CHRIS RODGERS [facility] [place] [facility] 2021-07-19 2021-07-19 Office Candelaria [facility] 1.2.840.114 [id number] Univers 08:40:00 09:23:07 Visit [facility] 350.1.13.10 ity of [place] 4.2.7.2.686 Benjamin as OSIEL?BLEA [phone] Or charlene [address] MEDICAL OFFICE [facility] 2021-07-19 2021-07-19 Orders Doctor ONEIDA 1.2.840.114 [id number] Univers 00:00:00 00:00:00 Only Unassigned, GINI 350.1.13.10 ity of [place] [facility] 4.2.7.2.686 Benjamin as [phone] [facility] [address] 2021-07-07 2021-07-08 Emergency X [facility] ERT [id number] Univers 22:38:00 00:14:00 WAKILI ity of [facility] 2021-07-07 2021-07-08 Emergency [facility] 1.2.112.026 [id number] Univers 22:38:00 00:14:00 Surendra MILENA 350.1.13.10 ity of [place] 4.2.7.2.686 [facility] [phone] [facility] [address] 2021-07-08 2021-07-08 Patient Doctor ONEIDA 1.2.840.114 [id number] Univers 00:00:00 00:00:00 Secure Msg Unassigned, GINI 350.1.13.10 ity of [place] [facility] 4.2.7.2.686 Benjamin as [phone] [facility] [address] 2021-07-05 2021-07-05 Ancillary ROBERT SHERMAN, 1.2.840.1 [id number] 14:15:30 14:15:30 Procedure IRENE 05278.1.1 A nderso 3.412.2.7 n .3.920030 .8 2021-07-05 2021-07-05 Ancillary ROBERT SHERMAN, 1.2.840.1 [id number] [id number] 13:02:39 13:02:39 Procedure IRENE 06903.1.1 A nderso 3.412.2.7 n .3.549734 .8 2021-07-05 2021-07-05 Travel 1.2.840.1 1.2.455.856 [id number] Univers 00:00:00 00:00:00 72942.1.1 350.1.13.41 ity of 3.412.2.7 [place].3.698 [place] .3.745923 084.8 MD Gupta8 [facility] 2021-07-03 2021-07-[address], 1.2.840.1 [id number] Univers 00:00:00 00:00:00 Irene 79606.1.1 ity of [place] 3.412.2.7 [place] .3.720127 MD Gupta8 [facility] 2021-07-02 2021-07-02 Lyndon Sherman, 1.2.840.1 [id number] Univers 00:00:00 00:00:00 Only Irene 58776.1.1 ity of [place] 3.412.2.7 [place] .3.994982 MD Gupta8 [facility] 2021-07-02 2021-07-02 Telephone Glenn, 1.2.840.1 [id number] [id number] Univers 00:00:00 00:00:00 Bella Dunn 39894.1.1 ity of 3.412.2.7 [place] .3.269785 MD Gupta8 [facility] 2021-07-02 2021-07-02 (TEL) [facility] STLC [id number] Co mmon 00:00:00 00:00:00 [facility] 2021-07-01 2021-07-01 (TEL) STLMLC STLMLC [id number] Co mmon 00:00:00 00:00:00 [facility] 2021-06-27 2021-06-27 Telephone ROBERT Heredia, 1.2.840.1 [id number] Univers 11:40:00 12:30:29 Justin 58757.1.1 ity of 3.412.2.7 [place] .3.174199 MD Gupta8 [facility] 2021-06-27 2021-06-[address] [facility] [id number] Univers 00:00:00 00:00:00 MEGHANN malcolm of [facility] 2021-06-27 2021-06-27 Outpatient Latrell [facility] [id number] Univers 00:00:00 00:00:00 MEGHANN ity of [facility] 2021-06-27 2021-06-27 Telephone [facility] 1.2.840.114 [id number] Univers 00:00:00 00:00:00 Meghann [facility] 350.1.13.10 it y of [place] 4.2.7.2.686 [facility] [place] [facility] - [phone] Med ical MDA [address] 2021-06-26 2021-06-26 Ancillary ROBERT SHERMAN, 1.2.840.1 [id number] [id number] 12:05:35 12:05:35 Procedure IRENE 18441.1.1 A nderso 3.412.2.7 n .3.663481 .8 2021-06-26 2021-06-26 Travel 1.2.840.1 1.2.513.947 [id number] Univers 00:00:00 00:00:00 81440.1.1 350.1.13.41 ity of 3.412.2.7 2.[place]7.3.698 [place] .3.988464 084.8 .8 [facility] 2021-06-19 2021-06-19 Office ROBERT Heredia, 1.2.840.1 [id number] Univers 11:40:00 13:06:03 Visit Justin 07799.1.1 ity of 3.412.2.7 [place] .3.991184 .8 Marry childers [facility] 2021-06-19 2021-06-19 Outpatient ROBERT HEREDIA, [facility] [id number] 10:51:35 10:55:41 JUSTIN childers 2021-06-19 2021-06-19 Orders Danny, 1.2.840.1 [id number] Univers 00:00:00 00:00:00 Only Dennis 13512.1.1 ity of [place] 3.412.2.7 [place] .3.114445 .8 Marry childers [facility] 2021-06-19 2021-06-19 Travel 1.2.840.1 1.2.243.024 [id number] Univers 00:00:00 00:00:00 72060.1.1 350.1.13.41 ity of 3.412.2.7 2.[place]7.3.698 [place] .3.546814 084.8 MD Gupta8 [facility] 2021-06-17 2021-06-17 (TEL) STLMLC STLMLC [id number] Co mmon 00:00:00 00:00:00 [facility] 2021-06-17 2021-06-17 OFFICE STLMLC STLMLC [id number] Co mmon 00:00:00 00:00:00 VISIT Spirit ESTAB PT [facility] LEVEL 4 [facility] 2021-06-04 2021-06-04 (TEL) STLMLC STLMLC [id number] Co mmon 00:00:00 00:00:00 [facility] 2021-05-06 2021-05-06 Telephone Glenn, 1.2.840.1 [id number] Univers 00:00:00 00:00:00 Bella Dunn 37643.1.1 ity of 3.412.2.7 [place] .3.793088 MD Gupta8 [facility] 2021-05-03 2021-05-03 (TEL) STLMLC STLMLC [id number] Co mmon 00:00:00 00:00:00 [facility] 2021-05-01 2021-05-01 (TEL) STLMLC STLMLC [id number] Co mmon 00:00:00 00:00:00 [facility] 2021-04-22 2021-04-22 (TEL) STLMLC STLMLC [id number] Co mmon 00:00:00 00:00:00 [facility] 2021-04-12 2021-04-12 OFFICE STLMLC STLMLC [id number] Co mmon 00:00:00 00:00:00 VISIT EST Spir it PT LEVEL 3 [facility] 2021-04-03 2021-04-03 Elpidio Blakely [facility] 1.2.586.370 [id number] Univers 00:00:00 00:00:00 Management Meghann [employer] 350.1.13.10 ity of [place] 4.2.7.2.686 [facility] [phone] Med ical MDA [address] 2021-04-02 2021-04-02 (TEL) STLMLC STLMLC [id number] Co mmon 00:00:00 00:00:00 Spirit - CHI [facility] 2021-04-01 2021-04-01 Refhanh Sherman, 1.2.840.1 [id number] Univers 00:00:00 00:00:00 Irene 75002.1.1 ity of [place] 3.412.2.7 [place] .3.282446 .8 [facility] 2021-03-20 2021-03-20 Ancillary EL Leslee Garciae, 1.2.840.1 [id number] [facility] 20:15:00 20:20:00 Procedure Justin 38275.1.1 it y of 3.412.2.7 [place] .3.276499 .8 [facility] 2021-03-20 2021-03-20 Ancillary ROBERT HEREDIA, 1.2.840.1 [id number] 13:29:23 13:29:23 Procedure CELYNE 91930.1.1 An derso 3.412.2.7 n .3.227295 .8 2021-03-20 2021-03-20 Ancillary EL SUMMERS GIOVANNA, 1.2.840.1 [id number] 13:29:19 13:29:19 Procedure CELYNE 73750.1.1 An derso 3.412.2.7 n .3.406684 .8 2021-03-20 2021-03-20 Ancillary ROBERT GARCIAE, 1.2.840.1 [id number] 13:12:06 13:12:06 Procedure CELYNE 27681.1.1 An derso 3.412.2.7 n .3.036626 .8 2021-03-14 2021-03-14 (TEL) STLMLC STLMLC [id number] Co mmon 00:00:00 00:00:00 [facility] 2021-03-12 2021-03-12 OFFICE STLMLC STLMLC [id number] Co mmon 00:00:00 00:00:00 VISIT [facility] 4 [facility] 2021-03-11 2021-03-11 (TEL) STLMLC STLMLC [id number] Co mmon 00:00:00 00:00:00 [facility] 2021-03-07 2021-03-07 (TEL) STLMLC STLMLC [id number] Co mmon 00:00:00 00:00:00 [facility] 2021-03-06 2021-03-06 Office ROBERT Heredia, 1.2.840.1 [id number] [facility] 08:00:00 08:43:54 Visit Justin 32183.1.1 ity of 3.412.2.7 [place] .3.222529 MD Block [facility] 2021-03-06 2021-03-06 Outpatient ROBERT HEREDIA, [facility] [id number] 06:50:19 06:55:29 JUSTIN childers 2021-03-06 2021-03-06 Travel 1.2.840.1 1.2.663.675 [id number] [facility] 00:00:00 00:00:00 61671.1.1 350.1.13.41 ity of 3.412.2.7 2.[place]7.3.698 [place] .3.625493 084.8 MD Block [facility] 2021-03-05 2021-03-05 (TEL) STLMLC STLMLC [id number] Co mmon 00:00:00 00:00:00 [facility] 2021-03-05 2021-03-05 (TEL) STLMLC STLMLC [id number] Co mmon 00:00:00 00:00:00 [facility] 2021-02-25 2021-02-25 (TEL) STLMLC STLMLC [id number] Co mmon 00:00:00 00:00:00 [facility] 2021-02-19 2021-02-19 OFFICE STLMLC STLMLC [id number] Co mmon 00:00:00 00:00:00 VISIT [facility] PT - CHI LEVEL 4 [facility] 2021-02-12 2021-02-12 (TEL) STLMLC STLMLC [id number] Co mmon 00:00:00 00:00:00 [facility] 2021-02-08 2021-02-08 (TEL) STLMLC STLMLC [id number] Co mmon 00:00:00 00:00:00 [facility] 2021-02-07 2021-02-07 OFFICE STLMLC STLMLC [id number] Co mmon 00:00:00 00:00:00 VISIT [facility] PT - CHI LEVEL 4 [facility] 2021-02-04 2021-02-04 (TEL) STLMLC STLMLC [id number] Co mmon 00:00:00 00:00:00 [facility] 2021-01-24 2021-01-24 OFFICE STLMLC STLMLC [id number] Co mmon 00:00:00 00:00:00 VISIT [facility] PT - CHI LEVEL 3 [facility] 2021-01-24 2021-01-24 NON-BILLAB STLMLC STLMLC [id number] Common 00:00:00 00:00:00 LE VISIT Spiri t [facility] 2021-01-15 2021-01-15 (TEL) STLMLC STLMLC [id number] Co mmon 00:00:00 00:00:00 [facility] 2020-12-27 2020-12-27 (TEL) STLMLC STLMLC [id number] Co mmon 00:00:00 00:00:00 [facility] 2020-12-26 2020-12-26 (TEL) STLMLC STLMLC [id number] Co mmon 00:00:00 00:00:00 [facility] 2020-12-26 2020-12-26 (TEL) STLMLC STLMLC [id number] Co mmon 00:00:00 00:00:00 [facility] 2020-12-25 2020-12-25 OFFICE STLMLC STLMLC [id number] Co mmon 00:00:00 00:00:00 VISIT [facility] 4 [facility] 2020-12-20 2020-12-20 (TEL) STLMLC STLMLC [id number] Co mmon 00:00:00 00:00:00 [facility] 2020-12-17 2020-12-17 Outpatient STLMLC STLMLC [id number] Common 00:00:00 00:00:00 [facility] 2020-12-07 2020-12-07 Outpatient ROBERT HEREDIA, RITA MDA [id number] 07:04:33 09:15:23 JUSTIN childers 2020-12-07 2020-12-07 Outpatient ROBERT HEREDIA, MDA MDA [id number] 06:51:59 06:55:15 JUSTIN childers 2020-12-05 2020-12-05 (TEL) STLMLC STLMLC [id number] Co mmon 00:00:00 00:00:00 [facility] 2020-11-29 2020-11-29 Outpatient STLMLC STLMLC [id number] Common 00:00:00 00:00:00 [facility] 2020-10-15 2020-10-15 [facility] 1.2.840.114 [id number] Univers 14:30:00 23:59:00 Encounter Meghann S SPECIALTY 350.1.13.10 ity of CARE 4.2.7.2.686 Aretha [facility] AT [phone] Or charlene [address] 2020-10-15 2020-10-15 [facility] [id number] Univers 00:00:00 23:59:00 MEGHANN cruzy [facility] [place] [facility] 2020-08-292020-08-29 Outpatient STLMLC STLMLC [id number] Common 00:00:00 00:00:00 [facility] 2020-08-27 2020-08-27 Outpatient STLMLC STLMLC [id number] Common 00:00:00 00:00:00 [facility] 2020-08-22 2020-08-22 Outpatient STLMLC STLMLC [id number] Common 00:00:00 00:00:00 [facility] 2020-08-22 2020-08-22 Outpatient STLMLC STLMLC [id number] Common 00:00:00 00:00:00 [facility] 2020-08-22 2020-08-22 Outpatient STLMLC STLMLC [id number] Common 00:00:00 00:00:00 [facility] 2020-08-17 2020-08-17 Outpatient STLMLC STLMLC [id number] Common 00:00:00 00:00:00 [facility] 2020-08-07 2020-08-07 Telephone Charity Flores [facility] 1.2.840.114 [id number] Univers 00:00:00 00:00:00 E Health 350.1.13.10 it y of Cancer 4.2.7.2.686 [facility] [place] - [phone] Med [place] [address] [address] 2020-08-03 2020-08-03 Office Charity Flores [facility] 1.2.840.114 [id number] Univers 09:25:44 09:55:44 Visit E Health 350.1.13.10 it y of Cancer 4.2.7.2.686 [facility] [place] - [phone] [place] [address] [place] 2020-08-03 2020-08-03 Outpatient R CHARITY FLORES [facility] [id number] Univers 09:45:00 09:45:00 ity of [facility] 2020-08-03 2020-08-03 Orders Doctor MOHAMUD 1.2.840.114 [id number] Univers 00:00:00 00:00:00 Only Unassigned, GINI 350.1.13.10 ity of [facility] 4.2.7.2.686 Benjamin as [phone] [place] [address] [address] 2020-07-31 2020-07-31 Outpatient STLMLC STLMLC [id number] Common 00:00:00 00:00:00 [facility] 2020-07-24 2020-07-24 Outpatient STLMLC STLMLC [id number] Common 00:00:00 00:00:00 [facility] 2020-07-17 2020-07-17 Outpatient STLMLC STLC [id number] Common 00:00:00 00:00:00 [facility] 2020-07-11 2020-07-11 Outpatient STLMLC STLMLC [id number] Common 00:00:00 00:00:00 [facility] 2020-07-10 2020-07-10 Ambulatory nullFlavo MNA [id number] Memoria 20:30:00 20:30:00 [facility] 2020-07-10 2020-07-10 Outpatient [facility] [id number] Common 00:00:00 00:00:00 [facility] 2020-07-05 2020-07-05 Ambulatory nullFlavo MNA [id number] Memoria 19:45:00 19:45:00 Pre-Reg r Neurology 01 l Alea Rector 2020-06-06 2020-06-07 Outpatient nullFlavo MNA [id number] Memoria 20:45:00 04:59:59 r Neurology 00 l Alea Rector 2020-06-05 2020-06-05 [facility] 1.2.840.114 [id number] Univers 00:00:00 00:00:00 Outreach Janusz GORE 350.1.13.[address] [facility] 4.2.7.2.686 Aretha SOTO [id number] [address] 2020-05-23 2020-05-[address] [facility] [id number] Univers 15:45:00 15:45:00 MEGHANN malcolm [facility] 2020-05-23 2020-05-23 Orders Doctor ONEIDA 1.2.840.114 [id number] Univers 00:00:00 00:00:00 Only Unassigned, GINI 350.1.13.10 ity of [place] [facility] 4.2.7.2.686 Benjamin as [phone] [facility] [address] 2020-05-18 2020-05-18 Outpatient ROBERT HEREDIARITA MDA [id number] 09:22:58 09:22:58 JUSTIN childers 2020-04-25 2020-04-25 Outpatient STLMLC STLMLC [id number] Common 00:00:00 00:00:00 [facility] 2020-04-04 2020-04-04 Outpatient STLMLC STLC [id number] Common 00:00:00 00:00:00 [facility] 2019-12-05 2019-12-05 Outpatient [facility] [id number] Common 08:20:00 08:20:00 t [facility] [address] [facility] 2019-11-29 2019-11-29 Outpatient [facility] [id number] Common 10:26:00 10:26:00 t [employer] [address] [facility] 2019-11-02 2019-11-02 [facility] [id number] Univers 13:30:00 13:30:00 MEGHANN malcolm [facility] 2019-11-02 2019-11-02 Telemed[facility] 1.2.840.114 [id number] Univers 08:57:33 09:12:33 ne Visit Meghann [facility] [id number] i ty of Cancer [id number] [facility] - [phone] Med ical MDA [address] 2019-10-20 2019-10-20 [facility] 1.2.840.114 [id number] Univers 13:28:00 23:59:00 Encounter Meghann S SPECIALTY [id number] ity of CARE 4.2.7.2.686 [facility] AT [phone] Me charlene ROJO 807 [facility] 2019-10-20 2019-10-20 Hospital Zora [facility] 1.2.840.114 [id number] Univers 09:46:00 14:23:00 Encounter Meghann Cash [facility] [id number] ity of [place] 4.2.7.2.686 [facility] [phone] [address] ([facility] 2019-10-20 2019-10-20 [facility] [id number] Univers 09:46:00 14:23:00 MEGHANN ity [facility] 2019-10-19 2019-10-19 Telephone Beaudevyn MOHAMUD [id number] Univers 00:00:00 00:00:00 GINI Gan 350.1.13.10 ity of [facility] 4.2.7.2.686 Benjamin as [phone] [facility] [address] [place] 2019-10-19 2019-10-19 Orders Doctor ONEIDA 1.2.840.114 [id number] Univers 00:00:00 00:00:00 Only Unassigned, GINI 350.1.13.10 ity of [facility] 4.2.7.2.686 Benjamin as [phone] [facility] [address] [place] 2019-10-18 2019-10-[address] [facility] [id number] Univers 13:00:00 13:00:00 ity of [facility] 2019-10-18 2019-10-18 Laboratory Only, [facility] Test [facility] 1.2.840. 114 [id number] Univers 12:24:47 12:39:47 Only Meghann Blakely S SPECIALTY 350.1.13.1 0 ity of CARE 4.2.7.2.686 [facility] AT [phone] Me charlene ROJO 353 [facility] 2019-10-14 2019-10-14 Outpatient ROBERT DIMAS, MDA MDA [id number] 00:00:00 00:00:00 NICOLLE childers 2019-10-13 2019-10-13 Outpatient MDA MDA [id number] 00:00:00 00:00:00 Yosi childers 2019-10-12 2019-10-12 Outpatient EL SUMMERS GIOVANNA, MDA MDA [id number] MD 00:00:00 00:00:00 JUSTIN Yosi o n 2019-10-12 2019-10-12 Outpatient EL SUMMERS GIOVANNA, MDA MDA [id number] MD 00:00:00 00:00:00 JUSTIN Yosi o n 2019-10-12 2019-10-12 Prep For ONEIDA Bright 1.2.840.[id number] [place] [address] 00:00:00 00:00:00 Surgery Andrewaj RUBALCAVA 350.1.13.10 it y of [facility] 4.2.7.2.686 Benjamin as [phone] [facility] [address]10 [address] 2019-10-10 2019-10-10 Outpatient EL SUMMERS GIOVANNA, MDA MDA [id number] MD 00:00:00 00:00:00 JUSTIN Yosi o n 2019-10-06 2019-10-06 Outpatient EL WING, MDA MDA [id number] MD 00:00:00 00:00:00 NICOLLE Nava so alvarado 2019-10-05 2019-10-05 Outpatient EL SUMMERS GIOVANNA, MDA MDA [id number] 00:00:00 00:00:00 JUSTIN Yosi o n 2019-10-05 2019-10-05 Outpatient EL MDA MDA [id number] MD 00:00:00 00:00:00 Yosi o alvarado 2019-10-03 2019-10-03 Outpatient EL MDA MDA [id number] MD 00:00:00 00:00:00 Yosi o alvarado 2019-10-03 2019-10-03 Orders Doctor MOHAMUD 1.2.840.114 [id number] [facility] 00:00:00 00:00:00 Only UnassignedGINI 350.1.13.10 ity of [facility] 4.2.7.2.686 Ebnjamin as [phone] [facility] 009 Branch 2019-09-29 2019-09-29 Outpatient EL CAMPOVERDE, MDA MDA [id number] MD 14:37:37 14:37:37 PARKER Deluca o alvarado 2019-09-28 2019-09-28 Outpatient SUMMERS GIOVANNA, MDA MDA [id number] 08:22:18 08:22:18 JUSTIN Gomezers o n 2019-09-28 2019-09-28 Outpatient SUMMERS GIOVANNA, MDA MDA [id number] 08:22:16 08:22:16 JUSTIN Yosi vinh n 2019-09-28 2019-09-28 Outpatient SUMMERS GIOVANNA, MDA MDA [id number] 08:22:15 08:22:15 JUSTIN Yosi o n 2019-09-28 2019-09-28 Outpatient SUMMERS GIOVANNA, MDA MDA [id number] 08:22:15 08:22:15 JUSTIN Yosieverardo childers 2019-09-28 2019-09-28 Outpatient SUMMERS GIOVANNA, MDA MDA [id number] 08:22:14 08:22:14 JUSTIN Yosi o n 2019-09-28 2019-09-28 Outpatient SUMMERS GIOVANNA, MDA MDA [id number] 08:22:13 08:22:13 JUSTIN Yosieverardo childers 2019-09-28 2019-09-28 Outpatient SUMMERS GIOVANNA, MDA MDA [id number] 08:22:12 08:22:12 JUSTIN childers 2019-09-28 2019-09-28 Outpatient SUMMERS GIOVANNA, MDA MDA [id number] 08:22:10 08:22:10 JUSTIN childers 2019-09-28 2019-09-28 Outpatient SUMMERS GIOVANNA, MDA MDA [id number] 08:22:09 08:22:09 JUSTIN Yosieverardo childers 2019-09-26 2019-09-26 [facility] [id number] Univers 13:30:00 13:30:00 MEGHANN cruz of [facility] 2019-09-26 2019-09-26 Office [facility] 1..[id number] Univers 13:08:27 13:23:27 Visit Meghann [facility] [address] 350.1.13.10 it y of Cancer 4.2.7.2.686 [facility] - [phone] [address] 2019-09-15 2019-09-15 [facility] 1.2.840.114 [id number] Univers 08:49:00 23:59:00 Encounter Meghann SPECIALTY 350.1.13.10 ity of CARE 4.2.7.2.686 [facility] AT [phone] Or charlene ROJO 805 [facility] 2019-09-15 2019-09-15 Hospital [facility] 1.2.840.114 [id number] Univers 07:35:00 13:27:00 Encounter Meghann Aguila 350.1.13.10 ity of [place] 4.2.7.2.686 [facility] [phone] [facility] 049 [facility] 2019-09-15 2019-09-15 [facility] [id number] Univers 07:35:00 13:27:00 MEGHANN itmichelle [facility] 2019-09-13 2019-09-13 Laboratory Only, Adc Test [facility] 1.2.840. 114 [id number] Univers 10:45:33 11:00:33 Only Meghann [place]ak[place] 350.1.13.10 ity of [place] 4.2.7.2.686 [facility] [phone] [facility] [address] [place] 2019-09-13 2019-09-13 [facility] [id number] Univers 10:45:00 10:45:00 MEGHANN [facility] 2019-09-13 2019-09-13 Orders Doctor ONEIDA 1.2.840.114 [id number] Univers 00:00:00 00:00:00 Only Unassigned, GINI 350.1.13.10 ity of [place] [facility] 4.2.7.2.686 [facility] [phone] [facility] 00[address] 2019-09-02 2019-09-02 Telephone [facility] 1.2.840.114 [id number] Univers 00:00:00 00:00:00 Meghann [facility] 350.1.13.10 it y of Cancer 4.2.7.2.686 [facility] - [phone] Med ical [facility] 188 [address] 2019-08-31 2019-08-31 Office [facility] 1.2.643.819 [id number] Univers 13:23:54 13:53:54 Visit Meghann [facility] 350.1.13.10 it y of Cancer 4.2.7.2.686 [facility] - [phone] Med ical MDA 188 [address] 2019-08-31 2019-08-31 [facility] [id number] Univers 13:30:00 13:30:00 MEGHANN [facility] 2019-08-31 2019-08-31 Patient Eugene [facility] 1.2.840.114 [id number] Univers 00:00:00 00:00:00 Outreach Hubert Marlen [facility] 350.1.13.10 ity of K Cancer 4.2.7.2.686 [facility] - [id number] Med ical MDA 188 [address] 2019-08-30 2019-08-30 Out[facility] [id number] Common 16:35:00 16:35:00 [facility] it [address] [facility] 2019-08-30 2019-08-30 [facility] [id number] Univers 14:00:00 14:00:00 [facility] 2019-08-[facility] 2019-08-[address] [facility] [id number] Univers 10:09:40 23:59:00 ity of [facility] 2019-08-19 2019-08-19 Outpatient [facility] [id number] Common 09:37:00 09:37:00 [facility] [address] [facility] 2019-08-17 2019-08-17 Outpatient [facility] [id number] Common 10:12:00 10:12:00 [facility] [address] [facility] 2019-08-12 2019-08-[address] [facility] [id number] Univers 15:24:39 23:59:00 ity of [facility] 2019-08-12 2019-08-12 Hospital Radiology [facility] 1.2.840.114 [id number] Univers 15:24:00 23:59:00 Encounter SPECIALTY 350.1.13.10 ity of CARE 4.2.7.2.686 [facility] AT [phone] Or abanils DARREL [address] [place] [address] 2019-08-12 2019-08-12 Hospital Radiology [facility] 1.2.840.114 [id number] Univers 15:17:00 15:23:00 Encounter SPECIALTY 350.1.13.10 ity of CARE 4.2.7.2.686 [facility] [phone] Or dical VICTORY 800 [facility] 2019-07-21 2019-07-21 Outpatient [facility] [id number] Common 14:48:00 14:48:00 [facility] Spir it [facility] 2019-07-21 2019-07-21 Outpatient [facility] [id number] Common 10:18:00 10:18:00 [facility] [address] [facility] 2019-05-27 2019-05-27 [facility] Radiology [facility] 1.2.840.114 [id number] Univers 09:15:00 23:59:00 Encounter Milena 350.1.13.10 ity of [place] 4.2.7.2.686 [facility] [phone] [facility] [address] [place] 2019-05-27 2019-05-[address] [facility] [id number] Univers 00:00:00 00:00:00 ity of [facility] 2019-05-27 2019-05-27 Orders Doctor ONEIDA 1.2.840.114 [id number] Univers 00:00:00 00:00:00 Only Unassigned, GINI 350.1.13.10 ity of [place] [facility] 4.2.7.2.686 Benjamin [id number] [facility] 009 Branch 2019-05-10 2019-05-10 Outpatient [facility] [id number] Common 16:45:00 16:45:00 [facility] Spir it Road [facility] 2019-05-04 2019-05-04 Associate Professor Of Anthropology Karol Ho Lab Main [facility] 1.2.8 40.114 [id number] Univers 07:53:31 08:08:31 Visit Aubree Carr 350.1.13 .10 ity of [place] 4.2.7.2.686 [facility] [phone] Or dical nal 353 [facility] 2019-05-04 2019-05-04 Orders Doctor ONEIDA 1.2.840.114 [id number] Univers 00:00:00 00:00:00 Only Unassigned, GINI 350.1.13.10 [facility] 4.2.7.2.686 Benjamin as [id number] [facility] 009 Branch 2018-10-29 2018-10-29 Outpatient [facility] [id number] Common 15:28:00 15:28:00 [facility] it [address] [facility] 2018-10-25 2018-10-25 Associate Professor Of Anthropology 1, Adc Lab [facility] 1.2.840.114 [id number] [facility] 12:22:10 12:37:10 Visit Aubree Carr 350.1.13 .10 ity [facility] 4.2.7.2.686 [facility] [phone] [place] [address] Branch 2018-10-25 2018-10-25 Outpatient [facility] [id number] Common 10:00:00 10:00:00 [facility] it [address] [facility] 2018-10-25 2018-10-25 Orders Doctor ONEIDA 1.2.840.114 [id number] 00:00:00 00:00:00 Only Unassigned, GINI 350.1.13.10 ity of [place] [facility] 4.2.7.2.686 Benjamin as [id number] [place] [address] Branch 2018-05-24 2018-05-24 Outpatient [facility] [id number] Common 14:15:00 14:15:00 [facility] it [address] [facility] 2018-05-14 2018-05-14 Outpatient [facility] [id number] Common 13:00:00 13:00:00 [facility] it [address] [facility] 2017-07-17 2017-07-17 Outpatient [facility] [id number] Common 14:52:00 14:52:00 [facility] it [address] [facility] 2017-07-10 2017-07-10 Outpatient [facility] [id number] Common 10:00:00 10:00:00 t [facility] [address] Spir it Road [facility] Family [facility] 2016-10-03 2016-10-04 Outpt Diag nullFlavo [facility] [id number] Memoria 14:05:00 04:59:00 Services r Outpatient 00 l Imaging [place] 2014-09-28 2014-09-28 Outpatient R HUNG, [facility] [id number] Univers 09:15:00 09:15:00 PATIENCE [facility] 2013-01-05 2013-01-05 DS nullFlavo [id number] Memoria 07:50:00 16:15:00 r Southeast 00 l [place] Results Test Description Test Time Test Comments Results Result Comments Source CBC WITH DIFF 2022-10-29 12:53:36 Test Item Value Reference Range Interpretation Comme nts WBC (test code = 6690-2) 4.88 See_Comment [A utomated message] The system which generated this result transmitted ref erence range: 4.30 - 11.10 10*3/?L . The reference range was not u sed to interpret this result as normal/abnormal. RBC (test code = 789-8) 4.62 See_Comment [Au tomated message] The system which generated this result transmitted ref erence range: 3.93 - 5.25 10*6/?L. The reference range was not u sed to interpret this result as normal/abnormal. HGB (test code = 718-7) 14.9 g/dL 11.6-15.0 HCT (test code = 4544-3) 42.7 % 35.7-45.2 MCV (test code = 787-2) 92.4 fL 80.6-95.5 MCH (test code = 785-6) 32.3 pg 25.9-32.8 MCHC (test code = 786-4) 34.9 g/dL 31.6-35.1 RDW-SD (test code = 43.1 fL 39.0-49.9 89789-0) RDW-CV (test code = 12.6 % 12.0-15.5 788-0) PLT (test code = 777-3) 260 See_Comment [Au tomated message] The system which generated this result transmitted ref erence range: 166 - 358 10*3/?L. The reference range was not u sed to interpret this result as normal/abnormal. MPV (test code = 84341-9) 10.2 fL 9.5-12.9 NRBC/100 WBC (test code = 0.0 See_Comment [ Automated message] The system [id number]) which generated this result transmitted ref erence range: 0.0 - 10.0 /100 WBC s. The reference range was not u sed to interpret this result as normal/abnormal. NRBC x10^3 (test code = See_Comment [Au tomated message] The system 5815121704) which generated this result transmitted ref erence range: 10*3/?L. The re ference range was not used to int erpret this result as normal/abnor mal. GRAN MAT (NEUT) % (test 59.5 % code = 770-8) IMM GRAN % (test code = 0.20 % 9880055155) LYMPH % (test code = 29.7 % 736-9) MONO % (test code = 8.6 % 5905-5) EOS % (test code = 713-8) 1.6 % BASO % (test code = 0.4 % 706-2) GRAN MAT x10^3(ANC) (test 2.90 10*3/uL 1.88-7.09 code = 5651301585) IMM GRAN x10^3 (test code 0.00-0.06 = 3983254346) LYMPH x10^3 (test code = 1.45 10*3/uL 1.32-3.29 731-0) MONO x10^3 (test code = 0.42 10*3/uL 0.33-0.92 742-7) EOS x10^3 (test code = 0.08 10*3/uL 0.03-0.39 711-2) BASO x10^3 (test code = 0.01-0.07 704-7) [facility] 2 [id number] 14:03:02 TECHNIQUE: XR SPINE THORACIC 2 VIEWS INDICATION: BACK INJURY. COMPARISON: None. FINDINGS:Thoracic vertebral body height and alignment are preserved.Intervertebral disc space narrowing and endplate degenerative changes atall thoracic levels. No compression deformity. Cholecystectomy clips [facility]noted [facility] [id number] 14:03:02 TECHNIQUE: XR SPINE THORACIC 2 VIEWS INDICATION: BACK INJURY. COMPARISON: None. FINDINGS:Thoracic vertebral body height and alignment are preserved.Intervertebral disc space narrowing and endplate degenerative changes atall thoracic levels. No compression deformity. Cholecystectomy clips arenoted [facility] 2 [id number] 14:03:02 [facility] 1965 Sex: FTECHNIQUE: XR SPINE THORACIC 2 VIEWSINDICATION: BACK INJURY.COMPARISON: None.FINDINGS:Thoracic vertebral body height and alignment are preserved.Intervertebral disc space narrowing and endplate degenerative changes atall thoracic levels. No compression deformity. Cholecystectomy clips arenotedIMPRESSION:Multilevel endplate degenerative changes and intervertebral disc spacenarrowing. No acute fracture or subluxation.Electronically Signed By: Vick Swanson09/21/2022 14:05 CDTWorkstation Name: [id number] D, [id number] 23:02:07 Test Item Value Reference Range Interpretation Comments VIT D 25OH (test code = 29 ng/mL 25-80 13797-2) MIGUEL (test code = MIGUEL) Deficiency: <20 ng/mLInsufficiency : 20-24 ng/mLOptimal: 25-80 ng/mL Lab Interpretation (test Normal code = 78865-6) [facility] Center[facility] STIMULATING [id number] 20:51:22 Test Item Value Reference Range Interpretation Comments TSH (test code = 0.21 See_Comment L [Automated message] 7324685793) The system whic h generated this result transmitted ref erence range: 0.45 - 4 .70 mIU/L. The refe rence range was not u sed to interpret this result as normal/abnor mal. Lab Interpretation (test Abnormal code = 05198-7) [facility] CenterLIPID PANEL (31619)(TOTAL CHOLESTEROL, TRIGLYCERIDES, HDL)2022-07-23 20:21:54 Test Item Value Reference Range Interpretation Comments CHOL (test code = 2878994243) 206 mg/dL 120-200 H HDL (test code = 6191733571) 52 mg/dL >=50 HDLC RATIO (test code = 3287405115) 4.0 <=4.5 TRIG (test code = 2710837216) 139 mg/dL 30-170 LDL CHOL (test code = 07425-2) 126 mg/dL <=160 VLDL (test code = 2542169999) 28 mg/dL 5-60 Lab Interpretation (test code = Abnormal 49835-0) [facility] Center[facility]. METABOLIC PANEL (62956)2022-07-23 20:21:34 Test Item Value Reference Range Interpretation Comments NA (test code = 142 mmol/L 135-145 5747260904) K (test code = 3.9 mmol/L 3.5-5.0 8278099675) CL (test code = 106 mmol/L 98-108 1692373419) CO2 TOTAL (test code 26 mmol/L 23-31 = 7748863266) AGAP (test code = 10 2-16 5217043648) BUN (test code = 9 mg/dL 7-23 6743127990) GLUCOSE (test code = 86 mg/dL 70-110 1717239907) CREATININE (test code 0.57 mg/dL 0.50-1.04 = 2252175118) TOTAL BILI (test code 0.8 mg/dL 0.1-1.1 = 0496348780) CALCIUM (test code = 9.2 mg/dL 8.6-10.6 3747033498) T PROTEIN (test code 7.2 g/dL 6.3-8.2 = 9948380870) ALBUMIN (test code = 4.6 g/dL 3.5-5.0 3797164316) ALK PHOS (test code = 98 U/L 34-122 5679831064) ALTv (test code = 27 U/L 5-35 1742-6) AST(SGOT) (test code 31 U/L 13-40 = 3792507615) eGFR (test code = 110.1 mL/min/1.73m2 3763650138) MIGUEL (test code = MIGUEL) Association of Glomerular Filtration Rate (GFR) and Staging of Kidney Disease* + + +- +| GFR (mL/min/1.73 m2) ?| With Kidney Damage ?| ?Without Kidney Damage+ ------+ ----+ ------+| ?>90 ?| ?Stage one ?| ? Normal ?+ -+ + -+| ?60-89 ?| ?Stage two ?| ? Decreased GFR ? + + +- +| ?30-59 ?| ?Stage three ?| ? Stage three ? + + +- +| ?15-29 ?| ?Stage four ? | ? Stage four ?+ -+ + -+| ?<15 (or dialysis) ? ?| ?Stage five ? | ? Stage five ?+ -+ + -+ *Each stage assumes the associated GFR level has been in effect for at least three months. ?Stages 1 to 5, with or without kidney disease, indicate chronic kidney disease. Notes: Determination of stages one and two (with eGFR >59mL/min/1.73 m2) requires estimation of kidney damage for at least three months as defined by structural or functional abnormalities of the kidney, manifested by either:Pathological abnormalities or Markers of kidney damage (including abnormalities in the composition of the blood or urine or abnormalities in imaging tests). [facility] CenterGLYCOSYLATED HEMOGLOBIN (A1C)2022-07-23 18:00:07 Test Item Value Reference Range Interpretation Comments HGB A1C (test code = 5.1 % 4.0-5.7 4548-4) MIGUEL (test code = MIGUEL) Reference RangesNormal: <5.7%Prediabetes: 5.7 - 6.4%Diabetes: > 6.5% Lab Interpretation (test Normal code = 75411-2) [facility] CenterCBC WITH [id number] 17:40:46 Test Item Value Reference Range Interpretation Comments WBC (test code = 5.44 See_Comment [Automated message] 2790-2) The system [employer] generated this result transmitted ref erence range: 4.30 - 1 1.10 10*3/?L. The re ference range was not u sed to interpret this result as normal/abnor mal. RBC (test code = 4.74 See_Comment [Automated message] 789-8) The system [employer] generated this result transmitted ref erence range: 3.93 - 5 .25 10*6/?L. The re ference range was not u sed to interpret this result as normal/abnor mal. HGB (test code = 14.7 g/dL 11.6-15.0 718-7) HCT (test code = 41.9 % 35.7-45.2 4544-3) MCV (test code = 88.4 fL 80.6-95.5 787-2) MCH (test code = 31.0 pg 25.9-32.8 785-6) MCHC (test code = 35.1 g/dL 31.6-35.1 786-4) RDW-SD (test code 40.4 fL 39.0-49.9 = 76864-2) RDW-CV (test code 12.5 % 12.0-15.5 = 788-0) PLT (test code = 251 See_Comment [Automated message] 947-3) The system [employer] generated this result transmitted ref erence range: 166 - 35 8 10*3/?L. The re ference range was not u sed to interpret this result as normal/abnor mal. MPV (test code = 10.2 fL 9.5-12.9 26348-3) NRBC/100 WBC (test 0.0 See_Comment [Automat ed message] code = 0053242847) The [place] [employer] - how to [place] which generated this result transmitted ref erence range: 0.0 - 10 .0 /100 WBCs. The refer ence range was not u sed to interpret this result as normal/abnor mal. NRBC x10^3 (test See_Comment [Automated message] code = 6417659054) The syste m which generated this result transmitted ref erence range: 10*3/?L. The reference range was not used to interpr et this result as normal/abnormal . GRAN MAT (NEUT) % 58.0 % (test code = 770-8) IMM GRAN % (test 0.20 % code = 2006593684) LYMPH % (test code 32.4 % = 736-9) MONO % (test code 7.5 % = 5905-5) EOS % (test code = 1.5 % 713-8) BASO % (test code 0.4 % = 706-2) GRAN MAT 3.16 10*3/uL 1.88-7.09 x10^3(ANC) (test code = 5503395290) IMM GRAN x10^3 0.00-0.06 (test code = 3961451765) LYMPH x10^3 (test 1.76 10*3/uL 1.32-3.29 code = 731-0) MONO x10^3 (test 0.41 10*3/uL 0.33-0.92 code = 742-7) EOS x10^3 (test 0.08 10*3/uL 0.03-0.39 code = 711-2) BASO x10^3 (test 0.01-0.07 code = 704-7) [facility] [id number] 11:46:06 Test Item Value Reference Range Interpretation Comments SCAN RESULT (test code = 0856091) POC-Glucose [id number] 07:46:57 Test Item Value Reference Range Interpretation Comments POC-Glucose Meter (test 86 mg/dL 70-110 : [facility] code = 1538) [address] [place] [address]: Solar System Installer/Techni adrian ID = [id number] for Andrei Nieto Lab Interpretation (test Normal code = 44230-6) [facility] [id number] 07:46:57 Test Item Value Reference Range Interpretation Comments POC-Glucose Meter (test 86 mg/dL 70-110 : [facility] 1538) [facility] [address]: Solar System Installer/Techni adrian ID = [id number] for Andrei Nieto Lab Interpretation (test Normal code = 65726-8) [facility] [place] [facility] HospitalPOCT-GLUCOSE [id number] 07:46:57 Test Item Value Reference Range Interpretation Comments POC-GLUCOSE METER 86 mg/dL 70-110 : TESTED A T [address] (BEAKER) (test code = [address]) [facility] [place] [address]: Solar System Installer/Techni adrian ID = [id number] for Sergey Roach CBC W/PLT COUNT & AUTO [id number] 03:43:55 Test Item Value Reference Range Interpretation Comments WHITE BLOOD CELL COUNT (BEAKER) 10.9 K/ L 4.0-10.0 H (test code = 775) RED BLOOD CELL COUNT (BEAKER) 3.98 M/ L 4.00-5.00 L (test code = 761) HEMOGLOBIN (BEAKER) (test code = 12.4 GM/DL 12.0-15.5 410) HEMATOCRIT (BEAKER) (test code = 36.3 % 36.0-46.0 411) MEAN CORPUSCULAR VOLUME (BEAKER) 91 fL 82-99 (test code = 753) MEAN CORPUSCULAR HEMOGLOBIN 31.2 pg 27.0-33.0 (BEAKER) (test code = 751) MEAN CORPUSCULAR HEMOGLOBIN CONC 34.2 GM/DL 32.0-36.0 (BEAKER) (test code = 752) RED CELL DISTRIBUTION WIDTH 12.4 % 12.0-15.0 (BEAKER) (test code = 412) PLATELET COUNT (BEAKER) (test 214 K/CU MM 150-430 code = 756) MEAN PLATELET VOLUME (BEAKER) 10.6 fL 6.0-11.5 (test code = 754) NUCLEATED RED BLOOD CELLS 0 /100 WBC 0-0 (BEAKER) (test code = 413) NEUTROPHILS RELATIVE PERCENT 89 % (BEAKER) (test code = 429) LYMPHOCYTES RELATIVE PERCENT 5 % (BEAKER) (test code = 430) MONOCYTES RELATIVE PERCENT 5 % (BEAKER) (test code = 431) EOSINOPHILS RELATIVE PERCENT 0 % (BEAKER) (test code = 432) BASOPHILS RELATIVE PERCENT 0 % (BEAKER) (test code = 437) NEUTROPHILS ABSOLUTE COUNT 9.70 K/ L 1.80-8.00 H (BEAKER) (test code = 670) LYMPHOCYTES ABSOLUTE COUNT 0.56 K/ L 1.48-4.50 L (BEAKER) (test code = 414) MONOCYTES ABSOLUTE COUNT (BEAKER) 0.55 K/ L 0.00-1.30 (test code = 415) EOSINOPHILS ABSOLUTE COUNT 0.00 K/ L 0.00-0.50 (BEAKER) (test code = 416) BASOPHILS ABSOLUTE COUNT (BEAKER) 0.01 K/ L 0.00-0.20 (test code = 417) IMMATURE GRANULOCYTES-RELATIVE 0.40 % 0.00-0.00 H PERCENT (BEAKER) (test code = 2801) POCT-GLUCOSE [id number] 21:30:02 Test Item Value Reference Range Interpretation Comments POC-GLUCOSE METER 134 mg/dL 70-110 H : TESTED A T [address] (BEAKER) (test code [address], = 1538) [place] [address]: Solar System Installer/Techni adrian ID = [id number] for Courtney Shetty POCT-GLUCOSE [id number] 16:10:18 Test Item Value Reference Range Interpretation Comments POC-GLUCOSE METER 138 mg/dL 70-110 H : TESTED A T [facility] [address] (BEAKER) (test code [address], = 1538) [place] [address]: Solar System Installer/Techni adrian ID = [id number] for Paige Degroot POCT-GLUCOSE [id number] 10:09:40 Test Item Value Reference Range Interpretation Comments POC-GLUCOSE METER 83 mg/dL 70-110 : TESTED A T [facility] [address] (BEAKER) (test code = [address], 1538) [place] [address]: Solar System Installer/Techni adrian ID = [id number] for LULU SAMIA YOUNG VITAMIN D, [id number] 17:20:33 Test Item Value Reference Range Interpretation Comments VITAMIN D 25-OH (BEAKER) (test 16.8 ng/mL 6.6-49.9 code = 2764) Effective 12/31/2016: Reference Range ChangeNew: 6.6-49.9 ng/mL Previous: 13.0- 47.8 ng/mLRecommendedVitamin D Target Range: 30.0-40.0 ng/mLOperator ID - BS VITAMIN [id number] 13:48:26 Test Item Value Reference Range Interpretation Comments VITAMIN B12 (ROBERT) (test code = 287 pg/mL 432-289 318) Solar System Installer ID - [id number]/RT-PCR (Asymptomatic ONLY)2022-03-13 13:26:18 Test Item Value Reference Interpretation Comments Range SARS-COV2/RT-PCR Negative Negative The SARS-Co V-2 (test code = target nucleic 75641-1) acids are not detected in thi s specimen. Negat jie results do not preclude SARS-C oV-2 infection and should not be u sed as the sole bas is for patient management decisions. Nega tive results must be combined with clinical observations, patient history , and epidemiolog ical information. A false negative result may occu r if a specimen is improperly collected, transported or handled. This S ARS CoV-2 test is a rapid, real-joes e RT-PCR test intended for th e qualitative detection of nucleic acid fr om SARS-CoV-2 in a nasopharyngeal swab specimen collec andreia from individual s suspected of COVID-19 by the ir healthcare provider. MIGUEL (test code = This test has been MIGUEL) authorized by FDA under an EUA for use by authorized laboratories. This test is only authorized for the duration of the declaration that circumstances exist justifying the authorization of emergency use of in vitro diagnostic tests for detection and/or diagnosis of COVID-19 under Section 564(b)(1) of the Federal Food, Drug and Cosmetic Act, 21 U.S.C. 360bbb-3(b)(1), unless the authorization is terminated or revoked sooner. Fact Sheet for Healthcare Providers: https://www.[employer]/Documents/Xp ert%20Xpress%20SAR S%20CoV-2/Fact%20S heets/302-3662%20S ARS-COV-2%20HEALTH CARE%20PROVIDERS%2 0FACT%20SHEET.pdf Fact Sheet for Healthcare Patients: https://www.[employer]/Documents/Xp ert%20Xpress%20SAR S%20CoV-2/Fact%20S heets/3023801%20S ARS-COV-2%20PATIEN T%20FACT%20SHEET.p df Lab Interpretation Normal (test code = 33447-7) [facility]-13 13:26:18 Test Item Value Reference Interpretation Comments Range SARS-COV2/RT-PCR Negative Negative The SARS-Co V-2 (test code = target nucleic 83265-0) acids are not detected in thi s specimen. Negat jie results do not preclude SARS-C oV-2 infection and should not be u sed as the sole bas is for patient management decisions. Nega tive results must be combined with clinical observations, patient history , and epidemiolog ical information. A false negative result may occu r if a specimen is improperly collected, transported or handled. This S ARS CoV-2 test is a rapid, real-jose e RT-PCR test intended for th e qualitative detection of nucleic acid fr om SARS-CoV-2 in a nasopharyngeal swab specimen collec andreia from individual s suspected of COVID-19 by the ir healthcare provider. MIGUEL (test code = This test has been MIGUEL) authorized by FDA under an EUA for use by authorized laboratories. This test is only authorized for the duration of the declaration that circumstances exist justifying the authorization of emergency use of in vitro diagnostic tests for detection and/or diagnosis of COVID-19 under Section 564(b)(1) of the Federal Food, Drug and Cosmetic Act, 21 U.S.C. 360bbb-3(b)(1), unless the authorization is terminated or revoked sooner. Fact Sheet for Healthcare Providers: https://www.[employer]/Documents/Xp ert%20Xpress%20SAR S%20CoV-2/Fact%20S heets/3023802%20S ARS-COV-2%20HEALTH CARE%20PROVIDERS%2 0FACT%20SHEET.pdf Fact Sheet for Healthcare Patients: https://www.[employer]/Documents/Xp ert%20Xpress%20SAR S%20CoV-2/Fact%20S heets/302-3801%20S ARS-COV-2%20PATIEN T%20FACT%20SHEET.p df Lab Interpretation Normal (test code = 84919-5) [facility]2022-03-13 13:26:18 Test Item Value Reference Range Interpretation Comments SARS-COV2/RT-PCR Negative Negative The SARS-Co V-2 target (test code = nucleic acids a re not 7410788) detected in thi s specimen. Negative result s do not preclude SARS-C oV-2 infection and s hould not be used as the chano e basis for patient managem ent decisions. Nega tive results must be combine d with clinical observ ations, patient history , and epidemiological information. A false negativ e result may occur if a spec imen is improperly collin ected, transported or handled. This SARS CoV-2 test is a rapid, real-time RT-PC R test intended for th e qualitative detection of nu cleic acid from SARS-CoV-2 in a nasopharyngeal swab specimen collected from individuals suspected of CO VID-19 by their healthcar e provider. This test has been authorized by FDA under an EUA for use by authorized laboratories. This test is only authorized for the duration of the declaration that circumstances exist justifying the authorization of emergency use of in vitro diagnostic tests for detection and/or diagnosis of COVID-19 under Section 564(b)(1) of the Federal Food, Drug and Cosmetic Act, 21 U.S.C. 360bbb-3(b)(1), unless the authorization is terminated or revoked sooner. Fact Sheet for Healthcare Providers: https://www.[employer].co m/Documents/Xpert%20Xpress%20SARS%20CoV-2/Fact%20Sheets/3023802%56VKMC-CGF-2%20 HEALTHCARE%20PROVIDERS%20FACT%20SHEET.pdf Fact Sheet for Healthcare Patients: https://www.[employer]/Documents/Xpert%20Xp ress%20SARS%20CoV-2/Fact%20Sheets/3023801%12APIF-NYF-0%20PATIENT%20FACT%20SHEET .pdfMALISSA [id number] 13:20:58 Test Item Value Reference Range Interpretation Comments IRON (BEAKER) (test code = 547) 98.0 ug/dL 45.0-170.0 Solar System Installer ID - [id number] METABOLIC [id number] 13:19:59 Test Item Value Reference Range Interpretation Comments TOTAL PROTEIN 8.2 gm/dL 6.0-8.5 (BEAKER) (test code = 770) ALBUMIN (BEAKER) 4.9 g/dL 3.5-5.0 (test code = 1145) ALKALINE 98 U/L 30-115 PHOSPHATASE (BEAKER) (test code = 346) BILIRUBIN TOTAL 1.1 mg/dL 0.1-1.2 (BEAKER) (test code = 377) SODIUM (BEAKER) 138 meq/L 135-148 (test code = 381) POTASSIUM (BEAKER) 4.4 meq/L 3.6-5.5 (test code = 379) CHLORIDE (BEAKER) 100 meq/L 98-106 (test code = 382) CO2 (BEAKER) (test 28 meq/L 20-29 code = 355) BLOOD UREA 19 mg/dL 10-26 NITROGEN (BEAKER) (test code = 354) CREATININE 0.80 mg/dL 0.50-1.20 (BEAKER) (test code = 358) GLUCOSE RANDOM 90 mg/dL 70-110 (BEAKER) (test code = 652) CALCIUM (BEAKER) 9.8 mg/dL 8.5-10.5 (test code = 697) AST (SGOT) 28 U/L 5-40 (BEAKER) (test code = 353) ALT (SGPT) 34 U/L 5-50 (BEAKER) (test code = 347) EGFR (BEAKER) 87 Interpretatio n of eGFR (test code = 1092) mL/min/1.[address] age Description sq m Result G1 Roxy l or high >=90 G2 Mildly decreased 60-89 G3a Mildl y to moderately 45-5 9 G3b Moderately to s everely 30-44 G4 Severl y decreased 15-29 G5 Kidney failure <15Reported eGF R is based on the CKD-EPI 2020 equation that d oes not use a race coefficientEsti mated GFR is not as accur ate as Creatinine Rosalind lovelace in predicting glom erular filtration rate . Estimated GFR is not appl icable for dialysis patien ts Solar System Installer ID - [id number] ID - [id number] ID - [id number] ID - [id number] ID - [id number] ID - [id number] ID - [id number] ID - [id number] ID - [id number] ID - [id number] ID - [id number] ID - [id number] ID - [id number] ID - [id number] ID - [id number] ID - [id number] ID - [id number] ID - [id number] ID - [id number] HEMOGLOBIN [id number] 13:03:34 Test Item Value Reference Range Interpretation Comments HEMOGLOBIN A1C (BEAKER) (test code = 5.3 % 4.3-6.1 368) Solar System Installer ID - [id number] W/PLT COUNT & AUTO [id number] 12:57:21 Test Item Value Reference Range Interpretation Comments WHITE BLOOD CELL COUNT (BEAKER) 11.4 K/ L 4.0-10.0 H (test code = 775) RED BLOOD CELL COUNT (BEAKER) 4.88 M/ L 4.00-5.00 (test code = 761) HEMOGLOBIN (BEAKER) (test code = 15.0 GM/DL 12.0-15.5 410) HEMATOCRIT (BEAKER) (test code = 43.2 % 36.0-46.0 411) MEAN CORPUSCULAR VOLUME (BEAKER) 89 fL 82-99 (test code = 753) MEAN CORPUSCULAR HEMOGLOBIN 30.7 pg 27.0-33.0 (BEAKER) (test code = 751) MEAN CORPUSCULAR HEMOGLOBIN CONC 34.7 GM/DL 32.0-36.0 (BEAKER) (test code = 752) RED CELL DISTRIBUTION WIDTH 12.2 % 12.0-15.0 (BEAKER) (test code = 412) PLATELET COUNT (BEAKER) (test 316 K/CU MM 150-430 code = 756) MEAN PLATELET VOLUME (BEAKER) 9.7 fL 6.0-11.5 (test code = 754) NUCLEATED RED BLOOD CELLS 0 /100 WBC 0-0 (BEAKER) (test code = 413) NEUTROPHILS RELATIVE PERCENT 75 % (BEAKER) (test code = 429) LYMPHOCYTES RELATIVE PERCENT 18 % (BEAKER) (test code = 430) MONOCYTES RELATIVE PERCENT 6 % (BEAKER) (test code = 431) EOSINOPHILS RELATIVE PERCENT 0 % (BEAKER) (test code = 432) BASOPHILS RELATIVE PERCENT 0 % (BEAKER) (test code = 437) NEUTROPHILS ABSOLUTE COUNT 8.50 K/ L 1.80-8.00 H (BEAKER) (test code = 670) LYMPHOCYTES ABSOLUTE COUNT 2.04 K/ L 1.48-4.50 (BEAKER) (test code = 414) MONOCYTES ABSOLUTE COUNT (BEAKER) 0.72 K/ L 0.00-1.30 (test code = 415) EOSINOPHILS ABSOLUTE COUNT 0.02 K/ L 0.00-0.50 (BEAKER) (test code = 416) BASOPHILS ABSOLUTE COUNT (BEAKER) 0.03 K/ L 0.00-0.20 (test code = 417) IMMATURE GRANULOCYTES-RELATIVE 0.40 % 0.00-0.00 H PERCENT (BEAKER) (test code = 2801) (MANUAL DIFFERENTIAL)2022-02-11 11:37:56 Test Item Value Reference Range Interpretation Comments NEUTROPHILS - REL (DIFF) (BEAKER) 75 % (test code = 1359) LYMPHOCYTES - REL (DIFF) (BEAKER) 7 % (test code = 1360) MONOCYTES - REL (DIFF) (BEAKER) 6 % (test code = 1361) EOSINOPHILS - REL (DIFF) (BEAKER) 2 % (test code = 1362) ATYPICAL LYMPHOCYTE - REL (DIFF) 10 % 0-0 H (BEAKER) (test code = 260) NEUTROPHILS - ABS (DIFF) (BEAKER) 5.40 K/ L 1.80-8.00 (test code = 1365) LYMPHOCYTES - ABS (DIFF) (BEAKER) 0.50 K/ L 1.48-4.50 L (test code = 1366) MONOCYTES - ABS (DIFF) (BEAKER) 0.43 K/ L 0.00-1.30 (test code = 1367) EOSINOPHILS - ABS (DIFF) (BEAKER) 0.14 K/ L 0.00-0.50 (test code = 1368) ATYPICAL LYMPHOCYTES - ABS (DIFF) 0.72 K/ L 0.00-0.00 H (BEAKER) (test code = 263) TOTAL COUNTED (BEAKER) (test code = 100 1351) WBC MORPHOLOGY (BEAKER) (test code Normal = 487) PLT MORPHOLOGY (BEAKER) (test code Normal = 486) RBC MORPHOLOGY (BEAKER) (test code Normal = 762) BASIC METABOLIC [id number] 11:26:28 Test Item Value Reference Range Interpretation [...] De scription 1092) sq m Result G1 Roxy l or high >=90 G2 Mildly decreased 60-89 [...] not appl icable for dialysis patien ts Solar System Installer ID - [id number] ID - [id number] ID - [id number] ID - [id number] ID - [id number] ID - [id number] ID - [id number] ID - [id number] ID - [id number] ID - [id number] ID - [id number] ID - [id number] WITH PLATELET COUNT + MANUAL [id number] 11:08:42 Test Item Value Reference Range Interpretation [...] WBC 0-0 (BEAKER) (test code = 413) [id number] 00:00:00 Test Item Value Reference Range Interpretation Comments Mammogram (test code = 99) yes Normal Radiology Study observation (narrative) (test code = 06714-5) [facility] [id number] 00:00:00 Test Item Value Reference Range Interpretation Comments Colonoscopy (test code no Pt reports no screening = 97) [facility]:00 Test Item Value Reference Range Interpretation Comments PROTIME (test code = PROTIME) 13.2 s 12.0-14.7 [facility]YafeslcASYDWCCTTG5688-60-84 20:03:00 Test Item Value Reference Range Interpretation Comments INR (test code = INR) 1.01 0.85-1.17 N [facility] HospitalWcqevysZFYXNLJBJI5019-26-84 20:03:00 Test Item Value Reference Range Interpretation Comments aPTT (test code = aPTT) 28.0 s 22.9-35.8 N [place] 190153-10-09 20:03:00 Test Item Value Reference Range Interpretation Comments MPV (test code = MPV) 8.7 7.4-10.4 N [facility] HospitalSowunwjMTQUHQVNGR6457-31-65 20:03:00 Test Item Value Reference Range Interpretation Comments Hct (test code = Hct) 42.0 36.0-48.0 N [facility] HospitalGbcrlnyWCJHBYSFRG0069-03-63 20:03:00 Test Item Value Reference Range Interpretation Comments MCHC (test code = MCHC) 33.2 32.0-36.0 N [facility] HospitalIeqoilhCWTKHCXPPA1468-24-40 20:03:00 Test Item Value Reference Range Interpretation Comments RDW (test code = RDW) 12.4 11.5-14.5 N [facility] HospitalFweoskvBJTUCDCNZV6943-18-44 20:03:00 Test Item Value Reference Range Interpretation Comments Platelet (test code = Platelet) 291 133-450 N [facility] HospitalQehcvdzLLPNSWWTMK4595-75-18 20:03:00 Test Item Value Reference Range Interpretation Comments MCV (test code = MCV) 94.8 81.0-99.0 N [facility] HospitalYyzjmaePFMWJSPPDK5753-14-60 20:03:00 Test Item Value Reference Range Interpretation Comments MCH (test code = MCH) 31.5 pg 27.0-31.0 H [facility] HospitalVivxpmeUDBBTDPOBC2439-48-09 20:03:00 Test Item Value Reference Range Interpretation Comments Hgb (test code = Hgb) 13.9 12.0-16.0 N [facility] HospitalAvdumnaGUXXOBIDMB8143-35-99 20:03:00 Test Item Value Reference Range Interpretation Comments WBC X 10x3 (test code = WBC X 10x3) 8.1 3.7-10.4 N [facility] HospitalOirafjkUATLQYYFWB4009-27-88 20:03:00 Test Item Value Reference Range Interpretation Comments RBC X 10x6 (test code = RBC X 10x6) 4.43 4.20-5.40 N [facility]OtrogfjJQPEBEXNM0784-84-64 20:03:00 Test Item Value Reference Range Interpretation Comments eGFR (test code = eGFR) 105 [facility] CenterKqabjucGKKGBKTLN5917-07-69 20:03:00 Test Item Value Reference Range Interpretation Comments BUN (test code = BUN) 10 7-22 N [facility] CenterXpikvawYGEIJFAYK6718-93-01 20:03:00 Test Item Value Reference Range Interpretation Comments Calcium Lvl (test code = Calcium Lvl) 8.8 8.5-10.5 N [facility] CenterVlqttahMQCSBBJHB6670-77-41 20:03:00 Test Item Value Reference Range Interpretation Comments Creatinine Lvl (test code = Creatinine 0.7 0.5-1.4 N Lvl) [facility] CenterOwghwczAFAFGJAPC0328-44-08 20:03:00 Test Item Value Reference Range Interpretation Comments CO2 (test code = CO2) 28 24-32 N [facility] CenterWjzarjnJFTDREZSB3717-57-55 20:03:00 Test Item Value Reference Range Interpretation Comments Glucose Lvl (test code = Glucose Lvl) 93 70-99 N [facility] CenterJuqqbduBOYCDIAIS4086-63-92 20:03:00 Test Item Value Reference Range Interpretation Comments Sodium Lvl (test code = Sodium Lvl) 142 135-145 N [facility] CenterKqfqwnrTRXKSRLWK7303-10-16 20:03:00 Test Item Value Reference Range Interpretation Comments Potassium Lvl (test code = Potassium 4.1 3.5-5.1 N Lvl) [facility] CenterWvocwxaSDPEGVTOT4809-07-43 20:03:00 Test Item Value Reference Range Interpretation Comments Chloride Lvl (test code = Chloride Lvl) 103 95-109 N [facility] CenterBvdgcvcIJGXUFFKG4861-79-70 20:03:00 Test Item Value Reference Range Interpretation Comments AGAP (test code = AGAP) 15.1 10.0-20.0 N [facility] HospitalQrbghdqVXJYHUYWDS7040-42-66 20:03:00 Test Item Value Reference Range Interpretation Comments Basophils # (test code 0.1 See_Comment N [Aut omated message] The = Basophils #) system which generated this result tra nsmitted reference range : <=0.2. The reference r lilly was not used to int erpret this result as normal/abnormal . [facility] HospitalEsxrdknIAQLPRIUCB5059-41-13 20:03:00 Test Item Value Reference Range Interpretation Comments Eosinophils (test code = 0.6 See_Comment N [A utomated message] The Eosinophils) system which ge nerated this result tra nsmitted reference range : <=4.0. The reference r lilly was not used to int erpret this result as normal/abnormal . [facility] HospitalXebvseyYLTCKQBWJI0190-06-43 20:03:00 Test Item Value Reference Range Interpretation Comments Monocytes # (test code 0.7 See_Comment N [Aut omated message] The = Monocytes #) system which generated this result tra nsmitted reference range : <=0.8. The reference r lilly was not used to int erpret this result as normal/abnormal . [facility] HospitalKjavctnCAEPIWUGSZ9313-45-87 20:03:00 Test Item Value Reference Range Interpretation Comments Eosinophils # (test code 0.1 See_Comment N [A utomated message] The = Eosinophils #) system whic h generated this result tra nsmitted reference range : <=0.5. The reference r lilly was not used to int erpret this result as normal/abnormal . [facility] HospitalCtrxmlwFIJNYJXCHB6503-28-18 20:03:00 Test Item Value Reference Range Interpretation Comments Basophils (test code = 0.7 See_Comment N [Aut omated message] The Basophils) system which ge nerated this result tra nsmitted reference range : <=1.0. The reference r lilly was not used to int erpret this result as normal/abnormal . [facility] HospitalVdrwevuGJMMUFZLDA9915-07-29 20:03:00 Test Item Value Reference Range Interpretation Comments Segs-Bands # (test code = Segs-Bands #) 5.3 1.5-8.1 N [facility] HospitalZrqjtwrBECLDLFZRL1371-76-76 20:03:00 Test Item Value Reference Range Interpretation Comments Lymphocytes # (test code = Lymphocytes 2.0 1.0-5.5 N #) [facility] HospitalDpuelooIJVZEFPXDC4081-14-67 20:03:00 Test Item Value Reference Range Interpretation Comments Segs (test code = Segs) 65.8 45.0-75.0 N [facility] HospitalMwugvnuBXOMBGQBDF3742-94-76 20:03:00 Test Item Value Reference Range Interpretation Comments Lymphocytes (test code = Lymphocytes) 24.8 20.0-40.0 N [facility] HospitalEotdtcrRUJSQZPTDH2493-22-68 20:03:00 Test Item Value Reference Range Interpretation Comments Monocytes (test code = Monocytes) 8.1 2.0-12.0 N [facility] HospitalOuwrcuyXPSNTPEGLX7612-15-52 20:03:00 Test Item Value Reference Range Interpretation Comments PROTIME (test code = PROTIME) 13.2 s 12.0-14.7 N [facility] HospitalPdcelnuLNPDLQNXOV7709-50-94 20:03:00 Test Item Value Reference Range Interpretation Comments INR (test code = INR) 1.01 0.85-1.17 N [facility] HospitalCeowymfNWYVJLCJMT3431-07-08 20:03:00 Test Item Value Reference Range Interpretation Comments aPTT (test code = aPTT) 28.0 s 22.9-35.8 N [facility] HospitalGlbawobFFSNYCXQVY2374-05-92 20:03:00 Test Item Value Reference Range Interpretation Comments MPV (test code = MPV) 8.7 7.4-10.4 N [facility] HospitalUgnpukcRYUULQCLRH9191-68-49 20:03:00 Test Item Value Reference Range Interpretation Comments Hct (test code = Hct) 42.0 36.0-48.0 N [facility] HospitalHyrvddhOPWDUUVVYI9723-86-98 20:03:00 Test Item Value Reference Range Interpretation Comments MCHC (test code = MCHC) 33.2 32.0-36.0 N [facility] HospitalExoqtsjJCCSRVOUCP0479-02-28 20:03:00 Test Item Value Reference Range Interpretation Comments RDW (test code = RDW) 12.4 11.5-14.5 N [facility] HospitalZxwmsosXBWYFOVUTZ9412-01-95 20:03:00 Test Item Value Reference Range Interpretation Comments Platelet (test code = Platelet) 291 133-450 N [facility] HospitalPgplpwwGGMHHLLFAV9039-86-85 20:03:00 Test Item Value Reference Range Interpretation Comments MCV (test code = MCV) 94.8 81.0-99.0 N [facility] HospitalTofhfwtHDGDBVTURJ6556-16-36 20:03:00 Test Item Value Reference Range Interpretation Comments MCH (test code = MCH) 31.5 pg 27.0-31.0 H [facility] HospitalDzonzmhSVDZAPLOLX6464-02-75 20:03:00 Test Item Value Reference Range Interpretation Comments Hgb (test code = Hgb) 13.9 12.0-16.0 N [facility] HospitalHtntgbiLYJOZQSJKU9717-87-53 20:03:00 Test Item Value Reference Range Interpretation Comments WBC X 10x3 (test code = WBC X 10x3) 8.1 3.7-10.4 N [facility] HospitalAyhphyvZHHVJMRRFV6869-50-62 20:03:00 Test Item Value Reference Range Interpretation Comments RBC X 10x6 (test code = RBC X 10x6) 4.43 4.20-5.40 N [facility] CenterOzsaariTHNKWHCAM8784-38-73 20:03:00 Test Item Value Reference Range Interpretation Comments eGFR (test code = eGFR) 105 [facility] CenterBqmacfzCHLEHYWRG5749-53-72 20:03:00 Test Item Value Reference Range Interpretation Comments BUN (test code = BUN) 10 7-22 N [facility] CenterVeiahxlCAZSCSLUX5302-69-96 20:03:00 Test Item Value Reference Range Interpretation Comments Calcium Lvl (test code = Calcium Lvl) 8.8 8.5-10.5 N [facility] CenterPuwfiopMJKJGIQIL4164-04-26 20:03:00 Test Item Value Reference Range Interpretation Comments Creatinine Lvl (test code = Creatinine 0.7 0.5-1.4 N Lvl) [facility] CenterUaxqwtsQXSAEBDDA1701-01-15 20:03:00 Test Item Value Reference Range Interpretation Comments CO2 (test code = CO2) 28 24-32 N [facility] CenterWixoaaoNFOFOIRXP7915-26-00 20:03:00 Test Item Value Reference Range Interpretation Comments Glucose Lvl (test code = Glucose Lvl) 93 70-99 N [facility] CenterWoisjosJDNXVPEYE6107-28-77 20:03:00 Test Item Value Reference Range Interpretation Comments Sodium Lvl (test code = Sodium Lvl) 142 135-145 N [facility] CenterRyflhwmNXMNWNMFB3151-66-82 20:03:00 Test Item Value Reference Range Interpretation Comments Potassium Lvl (test code = Potassium 4.1 3.5-5.1 N Lvl) [facility] CenterRdxtgsmRFZERRXMT6834-74-12 20:03:00 Test Item Value Reference Range Interpretation Comments Chloride Lvl (test code = Chloride Lvl) 103 95-109 N [facility] CenterWhpafedIGLNNSFVH1578-89-71 20:03:00 Test Item Value Reference Range Interpretation Comments AGAP (test code = AGAP) 15.1 10.0-20.0 N [facility] HospitalSzfelpzAJEVHTNFAS1270-03-01 20:03:00 Test Item Value Reference Range Interpretation Comments Basophils # (test code 0.1 See_Comment N [Aut omated message] The = Basophils #) system which generated this result tra nsmitted reference range : <=0.2. The reference r lilly was not used to int erpret this result as normal/abnormal . [facility] HospitalLcoiawpSKNPGZXUXL9466-66-63 20:03:00 Test Item Value Reference Range Interpretation Comments Eosinophils (test code = 0.6 See_Comment N [A utomated message] The Eosinophils) system which ge nerated this result tra nsmitted reference range : <=4.0. The reference r lilly was not used to int erpret this result as normal/abnormal . [facility] HospitalJremyocNIFETXGFEN0844-38-60 20:03:00 Test Item Value Reference Range Interpretation Comments Monocytes # (test code 0.7 See_Comment N [Aut omated message] The = Monocytes #) system which generated this result tra nsmitted reference range : <=0.8. The reference r lilly was not used to int erpret this result as normal/abnormal . [facility] HospitalWjcrfynTQWRRBXBFX6707-30-27 20:03:00 Test Item Value Reference Range Interpretation Comments Eosinophils # (test code 0.1 See_Comment N [A utomated message] The = Eosinophils #) system whic h generated this result tra nsmitted reference range : <=0.5. The reference r lilly was not used to int erpret this result as normal/abnormal . [facility] HospitalVwsprefXDPWSZAPTU1415-11-03 20:03:00 Test Item Value Reference Range Interpretation Comments Basophils (test code = 0.7 See_Comment N [Aut omated message] The Basophils) system which ge nerated this result tra nsmitted reference range : <=1.0. The reference r lilly was not used to int erpret this result as normal/abnormal . [facility] HospitalKprsipyCHFSGJPLET5580-05-96 20:03:00 Test Item Value Reference Range Interpretation Comments Segs-Bands # (test code = Segs-Bands #) 5.3 1.5-8.1 N [facility] HospitalCebndokGVWDQUTHLC7445-82-36 20:03:00 Test Item Value Reference Range Interpretation Comments Lymphocytes # (test code = Lymphocytes 2.0 1.0-5.5 N #) [facility] HospitalQfobqwkZDBVXOTUHU9722-07-26 20:03:00 Test Item Value Reference Range Interpretation Comments Segs (test code = Segs) 65.8 45.0-75.0 N [facility] HospitalKvwdoyjIMAHEZTLUU1980-30-42 20:03:00 Test Item Value Reference Range Interpretation Comments Lymphocytes (test code = Lymphocytes) 24.8 20.0-40.0 N [facility] HospitalVmpkppeNYXVLFFAMM8575-58-86 20:03:00 Test Item Value Reference Range Interpretation Comments Monocytes (test code = Monocytes) 8.1 2.0-12.0 N [facility] HospitalIdosualDTNTKMRLRS0185-53-80 20:03:00 Test Item Value Reference Range Interpretation Comments PROTIME (test code = PROTIME) 13.2 s 12.0-14.7 N [facility] HospitalXecadfqRHRSNDYJGA5879-93-86 20:03:00 Test Item Value Reference Range Interpretation Comments INR (test code = INR) 1.01 0.85-1.17 [facility]ExerdbhKPERXQODMC1544-35-87 20:03:00 Test Item Value Reference Range Interpretation Comments aPTT (test code = aPTT) 28.0 s 22.9-35.8 N [facility] HospitalBxeuiyvFMPOKPVDEU9318-00-00 20:03:00 Test Item Value Reference Range Interpretation Comments MPV (test code = MPV) 8.7 7.4-10.4 N [facility] HospitalSsklyxkXYZOCJIGDX9323-24-00 20:03:00 Test Item Value Reference Range Interpretation Comments Hct (test code = Hct) 42.0 36.0-48.0 N [facility] HospitalThhqglvJWUJIWZWQF2916-63-32 20:03:00 Test Item Value Reference Range Interpretation Comments MCHC (test code = MCHC) 33.2 32.0-36.0 N [facility] HospitalFxlxphnSODRHZYOCZ1388-25-08 20:03:00 Test Item Value Reference Range Interpretation Comments RDW (test code = RDW) 12.4 11.5-14.5 N [facility] HospitalSvuxfvqCPLLUBOKXA6689-48-33 20:03:00 Test Item Value Reference Range Interpretation Comments Platelet (test code = Platelet) 291 133-450 N [facility] HospitalFaswyvlIOOVJCJXLJ7026-55-60 20:03:00 Test Item Value Reference Range Interpretation Comments MCV (test code = MCV) 94.8 81.0-99.0 N [facility] HospitalJathisgEMVWQIXWAN6147-17-59 20:03:00 Test Item Value Reference Range Interpretation Comments MCH (test code = MCH) 31.5 pg 27.0-31.0 H [facility] HospitalVtqtxboJEEQYQCAXL8836-75-05 20:03:00 Test Item Value Reference Range Interpretation Comments Hgb (test code = Hgb) 13.9 12.0-16.0 N [facility] HospitalVvfbgroWBCGSMUSXM7854-87-40 20:03:00 Test Item Value Reference Range Interpretation Comments WBC X 10x3 (test code = WBC X 10x3) 8.1 3.7-10.4 N [facility] HospitalEwkfmiaPAZAVZQXJY3026-18-22 20:03:00 Test Item Value Reference Range Interpretation Comments RBC X 10x6 (test code = RBC X 10x6) 4.43 4.20-5.40 N [facility]IebvbunIGFJRZBEH4558-45-11 20:03:00 Test Item Value Reference Range Interpretation Comments eGFR (test code = eGFR) 105 [facility] CenterZwpbuedXDTTTXBOA7959-99-62 20:03:00 Test Item Value Reference Range Interpretation Comments BUN (test code = BUN) 10 7-22 N [facility] CenterUqyhucqHDZXPPZBL1674-19-76 20:03:00 Test Item Value Reference Range Interpretation Comments Calcium Lvl (test code = Calcium Lvl) 8.8 8.5-10.5 N [facility] CenterWdrcfniILABZCCJF4525-18-07 20:03:00 Test Item Value Reference Range Interpretation Comments Creatinine Lvl (test code = Creatinine 0.7 0.5-1.4 N Lvl) [facility] CenterJapbytcGJOSDRIRL7451-55-25 20:03:00 Test Item Value Reference Range Interpretation Comments CO2 (test code = CO2) 28 24-32 N [facility] CenterYnswjgdBWYLUSJPY8841-75-17 20:03:00 Test Item Value Reference Range Interpretation Comments Glucose Lvl (test code = Glucose Lvl) 93 70-99 N [facility] CenterSsbdfiuZXZBIKHYO3488-61-74 20:03:00 Test Item Value Reference Range Interpretation Comments Sodium Lvl (test code = Sodium Lvl) 142 135-145 N [facility] CenterHcosacfXLUVWPYFE5895-80-23 20:03:00 Test Item Value Reference Range Interpretation Comments Potassium Lvl (test code = Potassium 4.1 3.5-5.1 N Lvl) [facility] CenterVphxyowXESEZKNQI2002-76-69 20:03:00 Test Item Value Reference Range Interpretation Comments Chloride Lvl (test code = Chloride Lvl) 103 95-109 N [facility] CenterYkckqbgDAUEUTMOG2145-17-56 20:03:00 Test Item Value Reference Range Interpretation Comments AGAP (test code = AGAP) 15.1 10.0-20.0 N [facility] HospitalYulgporAJNQZNPFPX6655-29-61 20:03:00 Test Item Value Reference Range Interpretation Comments Basophils # (test code 0.1 See_Comment N [Aut omated message] The = Basophils #) system which generated this result tra nsmitted reference range : <=0.2. The reference r lilly was not used to int erpret this result as normal/abnormal . [facility] HospitalIxspnumWMHFMWBHGK3669-65-87 20:03:00 Test Item Value Reference Range Interpretation Comments Eosinophils (test code = 0.6 See_Comment N [A utomated message] The Eosinophils) system which ge nerated this result tra nsmitted reference range : <=4.0. The reference r lilly was not used to int erpret this result as normal/abnormal . [facility] HospitalMdlscajQYALDMKJNA9200-56-22 20:03:00 Test Item Value Reference Range Interpretation Comments Monocytes # (test code 0.7 See_Comment N [Aut omated message] The = Monocytes #) system which generated this result tra nsmitted reference range : <=0.8. The reference r lilly was not used to int erpret this result as normal/abnormal . [facility] HospitalWxxaqifHTQIKZLVOK6804-95-31 20:03:00 Test Item Value Reference Range Interpretation Comments Eosinophils # (test code 0.1 See_Comment N [A utomated message] The = Eosinophils #) system whic h generated this result tra nsmitted reference range : <=0.5. The reference r lilly was not used to int erpret this result as normal/abnormal . [facility] HospitalWvtxmlgGMQISBOESH7992-54-72 20:03:00 Test Item Value Reference Range Interpretation Comments Basophils (test code = 0.7 See_Comment N [Aut omated message] The Basophils) system which ge nerated this result tra nsmitted reference range : <=1.0. The reference r lilly was not used to int erpret this result as normal/abnormal . [facility] HospitalOyjygycPXKYRTNAVG9202-53-81 20:03:00 Test Item Value Reference Range Interpretation Comments Segs-Bands # (test code = Segs-Bands #) 5.3 1.5-8.1 N [facility] HospitalZumqxxkJFTOZWVSVX1755-45-31 20:03:00 Test Item Value Reference Range Interpretation Comments Lymphocytes # (test code = Lymphocytes 2.0 1.0-5.5 N #) [facility] HospitalIvhdoqoVMHMUWZFSS6567-77-33 20:03:00 Test Item Value Reference Range Interpretation Comments Segs (test code = Segs) 65.8 45.0-75.0 N [facility] HospitalAxdeqeiMIIMMXPLES9161-62-35 20:03:00 Test Item Value Reference Range Interpretation Comments Lymphocytes (test code = Lymphocytes) 24.8 20.0-40.0 N [facility] HospitalBaqjsavYBRTPRZUNX4659-21-03 20:03:00 Test Item Value Reference Range Interpretation Comments Monocytes (test code = Monocytes) 8.1 2.0-12.0 N [facility] HospitalTnhnrenQWAZAZJDGB6936-19-78 20:03:00 Test Item Value Reference Range Interpretation Comments PROTIME (test code = PROTIME) 13.2 s 12.0-14.7 N [facility] HospitalZfihfbmNDFYTLZCQP5221-12-79 20:03:00 Test Item Value Reference Range Interpretation Comments INR (test code = INR) 1.01 0.85-1.17 N [facility] HospitalQjfrhkkLUZULETMEL4829-82-32 20:03:00 Test Item Value Reference Range Interpretation Comments aPTT (test code = aPTT) 28.0 s 22.9-35.8 N [facility] HospitalDhdekquNTWRDIYSZB4980-07-62 20:03:00 Test Item Value Reference Range Interpretation Comments MPV (test code = MPV) 8.7 7.4-10.4 N [facility] HospitalEvzuklxXOEMYYLCMC2840-94-46 20:03:00 Test Item Value Reference Range Interpretation Comments Hct (test code = Hct) 42.0 36.0-48.0 N [facility] HospitalHpdxcdkEDZKDJSZAG0670-71-60 20:03:00 Test Item Value Reference Range Interpretation Comments MCHC (test code = MCHC) 33.2 32.0-36.0 N [facility] HospitalKrjxbweNYZRGUOMEV4924-39-77 20:03:00 Test Item Value Reference Range Interpretation Comments RDW (test code = RDW) 12.4 11.5-14.5 N [facility] HospitalCcrortwSUQJDBPAQI6102-91-49 20:03:00 Test Item Value Reference Range Interpretation Comments Platelet (test code = Platelet) 291 133-450 N [facility] HospitalHgxdgofZCDEJTXZSR0898-05-13 20:03:00 Test Item Value Reference Range Interpretation Comments MCV (test code = MCV) 94.8 81.0-99.0 N [facility] HospitalQaycxdvYSUCUDIMVO3368-18-93 20:03:00 Test Item Value Reference Range Interpretation Comments MCH (test code = MCH) 31.5 pg 27.0-31.0 H [facility] HospitalHzyeakiVTMHPYXGCV1317-13-59 20:03:00 Test Item Value Reference Range Interpretation Comments Hgb (test code = Hgb) 13.9 12.0-16.0 N [facility] HospitalXabxzulRSDXVAVRWK8274-93-68 20:03:00 Test Item Value Reference Range Interpretation Comments WBC X 10x3 (test code = WBC X 10x3) 8.1 3.7-10.4 N [facility] HospitalRxcatifLEMIOTGXIZ9706-12-65 20:03:00 Test Item Value Reference Range Interpretation Comments RBC X 10x6 (test code = RBC X 10x6) 4.43 4.20-5.40 N [facility] CenterVmndldzLUVVFZEQP8324-57-24 20:03:00 Test Item Value Reference Range Interpretation Comments eGFR (test code = eGFR) 105 [facility] CenterLggrdnrLTYPRKKHN9532-58-87 20:03:00 Test Item Value Reference Range Interpretation Comments BUN (test code = BUN) 10 7-22 N [facility] CenterNbaexubPSDBXVAXY7961-28-13 20:03:00 Test Item Value Reference Range Interpretation Comments Calcium Lvl (test code = Calcium Lvl) 8.8 8.5-10.5 N [facility] CenterJbuyotaKPKRAFBFU4589-48-88 20:03:00 Test Item Value Reference Range Interpretation Comments Creatinine Lvl (test code = Creatinine 0.7 0.5-1.4 N Lvl) [facility] CenterAyrgulxVJCEACVAR0882-45-09 20:03:00 Test Item Value Reference Range Interpretation Comments CO2 (test code = CO2) 28 24-32 N [facility] CenterXvvcfvfYVGVMORXR9379-53-87 20:03:00 Test Item Value Reference Range Interpretation Comments Glucose Lvl (test code = Glucose Lvl) 93 70-99 N [facility] CenterNkajaqfFXUCHTQEY4995-63-89 20:03:00 Test Item Value Reference Range Interpretation Comments Sodium Lvl (test code = Sodium Lvl) 142 135-145 N [facility] CenterZgabptwAKOARMSGV0003-01-51 20:03:00 Test Item Value Reference Range Interpretation Comments Potassium Lvl (test code = Potassium 4.1 3.5-5.1 N Lvl) [facility] CenterVlwywgzKLSDIFZYI9307-33-19 20:03:00 Test Item Value Reference Range Interpretation Comments Chloride Lvl (test code = Chloride Lvl) 103 95-109 N [facility] CenterQorbuthRNCSNZTFV8014-95-28 20:03:00 Test Item Value Reference Range Interpretation Comments AGAP (test code = AGAP) 15.1 10.0-20.0 N [facility] HospitalEavkxjpRQMUEWVDCR5492-75-23 20:03:00 Test Item Value Reference Range Interpretation Comments Basophils # (test code 0.1 See_Comment N [Aut omated message] The = Basophils #) system which generated this result tra nsmitted reference range : <=0.2. The reference r lilly was not used to int erpret this result as normal/abnormal . [facility] HospitalYdxpnpbFMRUGHGXJK5522-58-56 20:03:00 Test Item Value Reference Range Interpretation Comments Eosinophils (test code = 0.6 See_Comment N [A utomated message] The Eosinophils) system which ge nerated this result tra nsmitted reference range : <=4.0. The reference r lilly was not used to int erpret this result as normal/abnormal . [facility] HospitalCdphyovWMJLEEGXUU5443-49-71 20:03:00 Test Item Value Reference Range Interpretation Comments Monocytes # (test code 0.7 See_Comment N [Aut omated message] The = Monocytes #) system which generated this result tra nsmitted reference range : <=0.8. The reference r lilly was not used to int erpret this result as normal/abnormal . [facility] HospitalWokmbiiNPZIWAWWWZ2508-50-73 20:03:00 Test Item Value Reference Range Interpretation Comments Eosinophils # (test code 0.1 See_Comment N [A utomated message] The = Eosinophils #) system whic h generated this result tra nsmitted reference range : <=0.5. The reference r lilly was not used to int erpret this result as normal/abnormal . [facility] HospitalBxmoxriTQGGRDUSVR7096-08-78 20:03:00 Test Item Value Reference Range Interpretation Comments Basophils (test code = 0.7 See_Comment N [Aut omated message] The Basophils) system which ge nerated this result tra nsmitted reference range : <=1.0. The reference r lilly was not used to int erpret this result as normal/abnormal . [facility] HospitalYobynmdTVJACHXSNC0217-80-23 20:03:00 Test Item Value Reference Range Interpretation Comments Segs-Bands # (test code = Segs-Bands #) 5.3 1.5-8.1 N [facility] HospitalLvjyfnyRWDALVJNJV3252-09-35 20:03:00 Test Item Value Reference Range Interpretation Comments Lymphocytes # (test code = Lymphocytes 2.0 1.0-5.5 N #) [facility] HospitalKfevucqLNXJKVNCDY8955-90-86 20:03:00 Test Item Value Reference Range Interpretation Comments Segs (test code = Segs) 65.8 45.0-75.0 N [facility] HospitalErzwzxxPEPNHJSZGV8537-67-75 20:03:00 Test Item Value Reference Range Interpretation Comments Lymphocytes (test code = Lymphocytes) 24.8 20.0-40.0 N [facility] HospitalMuwmoetGQFSCYMNGG7447-41-83 20:03:00 Test Item Value Reference Range Interpretation Comments Monocytes (test code = Monocytes) 8.1 2.0-12.0 N [facility] HospitalHopwkvwMOAVFATVKE9519-76-19 20:03:00 Test Item Value Reference Range Interpretation Comments PROTIME (test code = PROTIME) 13.2 s 12.0-14.7 N [facility] HospitalIajbysmBVHGPTIRVB8524-67-11 20:03:00 Test Item Value Reference Range Interpretation Comments INR (test code = INR) 1.01 0.85-1.17 N [facility] HospitalHumztuvJJQPMCWGEA4023-36-36 20:03:00 Test Item Value Reference Range Interpretation Comments aPTT (test code = aPTT) 28.0 s 22.9-35.8 N [facility] HospitalRlgvuqsXBRJXSSDXE6324-02-35 20:03:00 Test Item Value Reference Range Interpretation Comments MPV (test code = MPV) 8.7 7.4-10.4 N [facility] HospitalGwidljsDNBKRDCSEX7070-58-87 20:03:00 Test Item Value Reference Range Interpretation Comments Hct (test code = Hct) 42.0 36.0-48.0 N [facility] HospitalIixkjjmDYGHCDIWUV6294-49-21 20:03:00 Test Item Value Reference Range Interpretation Comments MCHC (test code = MCHC) 33.2 32.0-36.0 N [facility] HospitalVdrfmymQDGVZVWHTR2515-98-56 20:03:00 Test Item Value Reference Range Interpretation Comments RDW (test code = RDW) 12.4 11.5-14.5 N [facility] HospitalRatngqwYNOFHGHJTU3243-03-19 20:03:00 Test Item Value Reference Range Interpretation Comments Platelet (test code = Platelet) 291 133-450 N [facility] HospitalMkkbnhtNTYJGGDHGT2392-61-43 20:03:00 Test Item Value Reference Range Interpretation Comments MCV (test code = MCV) 94.8 81.0-99.0 N [facility] HospitalLocfoleXHNFDAMCTK9836-08-43 20:03:00 Test Item Value Reference Range Interpretation Comments MCH (test code = MCH) 31.5 pg 27.0-31.0 H [facility] HospitalQkxozegTULTLUNTKM8663-12-55 20:03:00 Test Item Value Reference Range Interpretation Comments Hgb (test code = Hgb) 13.9 12.0-16.0 N [facility] HospitalKbqzgjaEPFJNIQFMH2557-03-34 20:03:00 Test Item Value Reference Range Interpretation Comments WBC X 10x3 (test code = WBC X 10x3) 8.1 3.7-10.4 N [facility] HospitalHwbxyefTUYBGQMVEH5116-71-49 20:03:00 Test Item Value Reference Range Interpretation Comments RBC X 10x6 (test code = RBC X 10x6) 4.43 4.20-5.40 N [facility] CenterVoehxxpMLMUOOLQJ2647-17-67 20:03:00 Test Item Value Reference Range Interpretation Comments eGFR (test code = eGFR) 105 [facility] CenterCsscjfrEPFPEFVRY3315-91-72 20:03:00 Test Item Value Reference Range Interpretation Comments BUN (test code = BUN) 10 7-22 N [facility] CenterBlihvfpSXRFHQXZK5928-04-71 20:03:00 Test Item Value Reference Range Interpretation Comments Calcium Lvl (test code = Calcium Lvl) 8.8 8.5-10.5 N [facility] CenterCuxdcxyYGVYTEEWD0033-34-20 20:03:00 Test Item Value Reference Range Interpretation Comments Creatinine Lvl (test code = Creatinine 0.7 0.5-1.4 N Lvl) [facility] CenterApinmenTRAIMKLAU7861-37-40 20:03:00 Test Item Value Reference Range Interpretation Comments CO2 (test code = CO2) 28 24-32 N [facility] CenterVmmlebeJAPMHFOIZ0256-10-97 20:03:00 Test Item Value Reference Range Interpretation Comments Glucose Lvl (test code = Glucose Lvl) 93 70-99 N [facility] CenterEugjtmeKCLHMNDHM7834-68-03 20:03:00 Test Item Value Reference Range Interpretation Comments Sodium Lvl (test code = Sodium Lvl) 142 135-145 N [facility] CenterZfqftjvWEUZXVZDB8756-21-11 20:03:00 Test Item Value Reference Range Interpretation Comments Potassium Lvl (test code = Potassium 4.1 3.5-5.1 N Lvl) [facility] CenterZhdqijgCEJOJUEFZ5071-50-78 20:03:00 Test Item Value Reference Range Interpretation Comments Chloride Lvl (test code = Chloride Lvl) 103 95-109 N [facility] CenterUnhftitNBCFPTYKN3779-66-11 20:03:00 Test Item Value Reference Range Interpretation Comments AGAP (test code = AGAP) 15.1 10.0-20.0 N [facility] HospitalAdxoputQQUTUVMPRM5189-37-94 20:03:00 Test Item Value Reference Range Interpretation Comments Basophils # (test code 0.1 See_Comment N [Aut omated message] The = Basophils #) system which generated this result tra nsmitted reference range : <=0.2. The reference r lilly was not used to int erpret this result as normal/abnormal . [facility] HospitalGjmhvzuCFMMWRLLYY4881-21-54 20:03:00 Test Item Value Reference Range Interpretation Comments Eosinophils (test code = 0.6 See_Comment N [A utomated message] The Eosinophils) system which ge nerated this result tra nsmitted reference range : <=4.0. The reference r lilly was not used to int erpret this result as normal/abnormal . [facility] HospitalQnrotfeIWQPDNMVQI0915-40-12 20:03:00 Test Item Value Reference Range Interpretation Comments Monocytes # (test code 0.7 See_Comment N [Aut omated message] The = Monocytes #) system which generated this result tra nsmitted reference range : <=0.8. The reference r lilly was not used to int erpret this result as normal/abnormal . [facility] HospitalOnyzxpjNOCGMYSZPK6017-32-22 20:03:00 Test Item Value Reference Range Interpretation Comments Eosinophils # (test code 0.1 See_Comment N [A utomated message] The = Eosinophils #) system whic h generated this result tra nsmitted reference range : <=0.5. The reference r lilly was not used to int erpret this result as normal/abnormal . [facility] HospitalHirejauZBWOMKYIBG9175-80-26 20:03:00 Test Item Value Reference Range Interpretation Comments Basophils (test code = 0.7 See_Comment N [Aut omated message] The Basophils) system which ge nerated this result tra nsmitted reference range : <=1.0. The reference r lilly was not used to int erpret this result as normal/abnormal . [facility] HospitalNarqrjuAFNEMNWBEP3410-02-41 20:03:00 Test Item Value Reference Range Interpretation Comments Segs-Bands # (test code = Segs-Bands #) 5.3 1.5-8.1 N [facility] HospitalZuvpuimEEHXWTCVJO5549-56-02 20:03:00 Test Item Value Reference Range Interpretation Comments Lymphocytes # (test code = Lymphocytes 2.0 1.0-5.5 N #) [facility] HospitalByuvamtHJLFTQHOTF3780-37-33 20:03:00 Test Item Value Reference Range Interpretation Comments Segs (test code = Segs) 65.8 45.0-75.0 N [facility] HospitalFpypjnwYKDWWUYKYH3548-69-90 20:03:00 Test Item Value Reference Range Interpretation Comments Lymphocytes (test code = Lymphocytes) 24.8 20.0-40.0 N [facility] HospitalTivtpszXZHHLOGRRH9407-34-49 20:03:00 Test Item Value Reference Range Interpretation Comments Monocytes (test code = Monocytes) 8.1 2.0-12.0 N [facility] HospitalIliojomPXYKANVUXP9664-99-80 20:03:00 Test Item Value Reference Range Interpretation Comments PROTIME (test code = PROTIME) 13.2 s 12.0-14.7 N [facility] HospitalIvuszyfCUQZLGIZQA7471-01-16 20:03:00 Test Item Value Reference Range Interpretation Comments INR (test code = INR) 1.01 0.85-1.17 N [facility] HospitalBccvgjnVORTUGLFNW1166-25-21 20:03:00 Test Item Value Reference Range Interpretation Comments aPTT (test code = aPTT) 28.0 s 22.9-35.8 N [facility] HospitalLaenkvqXMRTHMPIAF6826-13-48 20:03:00 Test Item Value Reference Range Interpretation Comments MPV (test code = MPV) 8.7 7.4-10.4 N [facility] HospitalPywwzybKLUOYYTYVP5060-27-22 20:03:00 Test Item Value Reference Range Interpretation Comments Hct (test code = Hct) 42.0 36.0-48.0 N [facility] HospitalXbhcwuePFANZSQPJS7708-32-72 20:03:00 Test Item Value Reference Range Interpretation Comments MCHC (test code = MCHC) 33.2 32.0-36.0 N [facility] HospitalBpehsrkUFYDJVEDDR8013-81-92 20:03:00 Test Item Value Reference Range Interpretation Comments RDW (test code = RDW) 12.4 11.5-14.5 N [facility] HospitalGepmauzWPHZXCDVEM0560-54-85 20:03:00 Test Item Value Reference Range Interpretation Comments Platelet (test code = Platelet) 291 133-450 N [facility] HospitalStswgraMNIYTWVKZQ6986-15-64 20:03:00 Test Item Value Reference Range Interpretation Comments MCV (test code = MCV) 94.8 81.0-99.0 N [facility] HospitalPsshvjlNXSFNHMNMN6975-61-45 20:03:00 Test Item Value Reference Range Interpretation Comments MCH (test code = MCH) 31.5 pg 27.0-31.0 H [facility] HospitalEupbksnILCGYXMMWU2835-23-06 20:03:00 Test Item Value Reference Range Interpretation Comments Hgb (test code = Hgb) 13.9 12.0-16.0 N [facility] HospitalTciggskFFYRZLTBVS8264-79-80 20:03:00 Test Item Value Reference Range Interpretation Comments WBC X 10x3 (test code = WBC X 10x3) 8.1 3.7-10.4 N [facility] HospitalWvfniuwRIFVPWDDGP6828-39-35 20:03:00 Test Item Value Reference Range Interpretation Comments RBC X 10x6 (test code = RBC X 10x6) 4.43 4.20-5.40 N [facility] CenterSjdgolaZPCZELBRQ8720-25-54 20:03:00 Test Item Value Reference Range Interpretation Comments eGFR (test code = eGFR) 105 [facility] CenterEfdsaoyEXCRRNVJE5816-44-36 20:03:00 Test Item Value Reference Range Interpretation Comments BUN (test code = BUN) 10 7-22 N [facility] CenterTpdagxpKZLNDVPLD7358-92-66 20:03:00 Test Item Value Reference Range Interpretation Comments Calcium Lvl (test code = Calcium Lvl) 8.8 8.5-10.5 N [facility] CenterBxxhdwyTWVKWYNHC3119-11-06 20:03:00 Test Item Value Reference Range Interpretation Comments Creatinine Lvl (test code = Creatinine 0.7 0.5-1.4 N Lvl) [facility] CenterGlnkopfOTETEZEJH3359-47-74 20:03:00 Test Item Value Reference Range Interpretation Comments CO2 (test code = CO2) 28 24-32 N [facility] CenterIstfkiiMGRRMLJTW8647-31-31 20:03:00 Test Item Value Reference Range Interpretation Comments Glucose Lvl (test code = Glucose Lvl) 93 70-99 N [facility] CenterCzsoiivSBSUBJODL5534-21-99 20:03:00 Test Item Value Reference Range Interpretation Comments Sodium Lvl (test code = Sodium Lvl) 142 135-145 N [facility] CenterMiqurnfUYDGIFRYD2876-35-34 20:03:00 Test Item Value Reference Range Interpretation Comments Potassium Lvl (test code = Potassium 4.1 3.5-5.1 N Lvl) [facility] CenterZgvjecjUNRNJECFI7438-81-30 20:03:00 Test Item Value Reference Range Interpretation Comments Chloride Lvl (test code = Chloride Lvl) 103 95-109 N [facility] CenterCmhihqyJTNRBSTWR8127-47-66 20:03:00 Test Item Value Reference Range Interpretation Comments AGAP (test code = AGAP) 15.1 10.0-20.0 N [facility] HospitalPfzdlopYAFXLJREJG8270-15-99 20:03:00 Test Item Value Reference Range Interpretation Comments Basophils # (test code 0.1 See_Comment N [Aut omated message] The = Basophils #) system which generated this result tra nsmitted reference range : <=0.2. The reference r lilly was not used to int erpret this result as normal/abnormal . [facility] HospitalGetgymfLVUDGNEGLR0904-13-22 20:03:00 Test Item Value Reference Range Interpretation Comments Eosinophils (test code = 0.6 See_Comment N [A utomated message] The Eosinophils) system which ge nerated this result tra nsmitted reference range : <=4.0. The reference r lilly was not used to int erpret this result as normal/abnormal . [facility] HospitalHqjnazlDONEYPHUZT8098-48-43 20:03:00 Test Item Value Reference Range Interpretation Comments Monocytes # (test code 0.7 See_Comment N [Aut omated message] The = Monocytes #) system which generated this result tra nsmitted reference range : <=0.8. The reference r lilly was not used to int erpret this result as normal/abnormal . [facility] HospitalQqhoyhzCFLZDHTVLH2284-19-68 20:03:00 Test Item Value Reference Range Interpretation Comments Eosinophils # (test code 0.1 See_Comment N [A utomated message] The = Eosinophils #) system whic h generated this result tra nsmitted reference range : <=0.5. The reference r lilly was not used to int erpret this result as normal/abnormal . [facility] HospitalApqltrpGQGAXSPNGF9162-04-92 20:03:00 Test Item Value Reference Range Interpretation Comments Basophils (test code = 0.7 See_Comment N [Aut omated message] The Basophils) system which ge nerated this result tra nsmitted reference range : <=1.0. The reference r lilly was not used to int erpret this result as normal/abnormal . [facility]ub[facility]kLHIWKAVQCR1108-02-66 20:03:00 Test Item Value Reference Range Interpretation Comments Segs-Bands # (test code = Segs-Bands #) 5.3 1.5-8.1 N [facility] HospitalFeaalzoAHXGEWICNA5244-28-43 20:03:00 Test Item Value Reference Range Interpretation Comments Lymphocytes # (test code = Lymphocytes 2.0 1.0-5.5 N #) [facility] HospitalPvzhgajUWPWGXYWCL9651-60-13 20:03:00 Test Item Value Reference Range Interpretation Comments Segs (test code = Segs) 65.8 45.0-75.0 N [facility] HospitalIkftfbyWFIZANBRLL6875-14-74 20:03:00 Test Item Value Reference Range Interpretation Comments Lymphocytes (test code = Lymphocytes) 24.8 20.0-40.0 N [facility] HospitalPyhipuaJZINGKBYUB9430-35-78 20:03:00 Test Item Value Reference Range Interpretation Comments Monocytes (test code = Monocytes) 8.1 2.0-12.0 N [facility] Notes Date/Time Note Provider Source 2022-10-29 07:30:00 [id number]:30:00Formatting of [facility] this note is different from the original.Images from the original note were not included.Pt was fasting this morning for blood work.Venipuncture collection performed by clean technique on the right anticubitus. Total of 1 attempts were made. Slight pressure and a bandage/dressing were applied to the site(s). The patient experienced no complications. The following specimens were processed according to instructions and sent to [facility] laboratories per lab order on 10/29/2022: LT BLUE SST 2 RED LAV 2 PPT DK GREEN (LiHep) DK GREEN (SodH) SMALL DK BLUE (K2) DK BLUE (S) ACD Blood Culture NIPT/NTD Patient has been identified by and name and was provided with cup, antiseptic towelette, and clean catch instructions. 1 urine specimen(s) sent. Unpreserved Urine Culture Aptima tube Other urine [id number] VzpiZD9871-14-87E72:57:16Nurse NoteTXT1.2.840.852534.1.13.104.2 .7.2.868140|[id number] e for patient qdzk07058-3Hwbxb [address] 9610KWEGDNRUHJFDSKQCLYMBBH9669-0 8-09T07:57:161.2.840.823334.1.72 .3.15|1.2.840.303015.1.13.104.2. 7.2.727879_[id number] 2022-09-11 13:18:21 4167-48-47R73:18:21Formatting of [facility]es [facility] this note might be different from the original.Attempt to contact pt X3 voicemail was full. 63921-9Sokvmjmth encounter CatzME9319-98-21B35:19:12Telepho ne encounter NoteTXT1.2.840.855883.1.13.104.2 .7.2.806159|[id number] e for patient [id number] wanda[address]TX[address] 6964FZFWODUGNQTMXZMTXZTELI2861-9 3:19:121.2.840.294316.1.72 .3.15|1.2.840.909955.1.13.104.2. 7.2.727879_[id number] 2022-09-10 16:53:57 6780-82-49F44:53:57Formatting of Michelle vargas [facility] this note might be different from the original.TRC to assist with scheduling 44560-4Jmlquenbw encounter TuovKC2112-25-56H81:54:19Telepho ne encounter NoteTXT1.2.840.044867.1.13.104.2 .7.2.919274|[id number] e for patient [id number] Arr[address]TX[address] 6489ILJKYRGHBRITFCVQENZBQX9239-5 09-10T16:54:191.2.840.299711.1.72 .3.15|1.2.840.915318.1.13.104.2. 7.2.727879_[id number] 2022-09-09 16:55:03 6001-00-93K99:55:03Formatting of Rosa currie [facility] this note might be different from the original.Attempted to call pt and left voicemail letting her know somebody from [facility] will call to schedule a follow up appt with Dr. Rodgers as well as her currently not having Gabapentin listed on her current medications. 65377-4Bejwbzhyi encounter SukdBI5620-25-65Z76:58:45Telepho ne encounter NoteTXT1.2.840.317042.1.13.104.2 .7.2.898980|[id number] e for patient [id number] Phillips [address] 0458JLTRQKGPXQYHDEFKNQKHXW0633-3 6:58:451.2.840.495994.1.72 .3.15|1.2.840.659333.1.13.104.2. 7.2.727879_[id number] 2022-09-09 16:04:50 2411-85-88L44:04:50Formatting of Ana Lilia Costello [facility] this note might be different from the original.Sonya Duff is a 57 year old femalePt calling her Neuropathy is getting worse. She states Gabapentin isn't helping Pt states doesn't want to be scheduled with Amparo Oropeza. Pt is upset [place] [address]-6Luvqvgbkf encounter SrsjBW1819-79-56U04:11:31Telepho ne encounter NoteTXT1.2.840.234769.1.13.104.2 .7.2.415117|[id number] e for patient [id number] [address] JgppZakwltlabQdukajclaKXOT001037 4830DDKPCGGHGRVEHCDYIEVAES6659-8 6:11:311.2.840.386743.1.72 .3.15|1.2.840.250822.1.13.104.2. 7.2.727879_[id number]
[2023-02-21 11:25] LABS: Absolute Lymphocytes (CBC) 1.8 K/uL (0.7-4.9); Hematocrit 40.5 % (36.0-45.0); Lymphocytes % 33.2 % (15.3-44.8); MCV 91.8 fL (80-100); MPV 8.2 fL (7.6-11.3); Platelets 242 thou/uL (152-406); RBC Red Blood Cell Count 4.41 M/uL (3.86-4.86)
[2023-02-21] MEDS ORDERED: NA CHLORIDE 0.9% 1,000 ML ONE (11:30)
[2023-02-21] MEDS ORDERED: FOLIC ACID 5 MG/ML VIAL ONE (11:31)
[2023-02-21 11:38] LABS: SARS-CoV-2 Antigen Rapid Res Negative (Negative)
[2023-02-21 11:40] LABS: Protime INR 1.02
--- NOTE | 2023-02-21 11:46 | RAD REPORT ---
EXAM DESCRIPTION: CT - Head C Spine Cap Wo Con - 02/21/2023 11:23 am CLINICAL HISTORY: Trauma, head and neck injury. Chest, abdomen and pelvis pain. FALL;Headache COMPARISON: <Comparisons> TECHNIQUE: CT head without contrast. CT cervical spine without contrast with coronal and sagittal reformatted images. CT chest, abdomen and pelvis without contrast with coronal and sagittal reformatted images of the spi ne. All CT scans are performed using dose optimization technique as appropriate and may include automated exposure control or mA/KV adjustment according to patient size. FINDINGS: CT HEAD WITHOUT CONTRAST: No intracranial hemorrhage, hydrocephalus or extra-axial fluid collection. No areas of brain edema o r midline shift. The paranasal sinuses and mastoids are clear. The calvarium is intact. CT CERVICAL SPINE WITHOUT CONTRAST: No fracture or subluxation. Mild lower cervical degenerative changes. The prevertebral soft tissues a re normal in thickness. CT CHEST, ABDOMEN, PELVIS WITHOUT CONTRAST: NOTE: Lack of contrast is a significant limitation in the assessment of trauma related findings. Spec ifically, solid organ, vascular and bowel evaluation is significantly limited. The lungs are clear.No pneumothorax or pericardial/pleural fluid. No evidence of intra-abdominal visceral injury, free fluid or free air is seen within the above detai led limitations. Postsurgical changes about the stomach. Moderate stool is present in the colon. Mild lower lumbar degenerative changes. No fractures. IMPRESSION: Negative for acute traumatic findings within the above detailed limitations.
[2023-02-21 11:49] LABS: Albumin 3.4 g/dL (3.4-5.0); Bilirubin Direct 0.3 mg/dL (0-0.2); Bilirubin Indirect, Calculated 0.4 mg/dL (0.2-0.8); Bilirubin Total 0.7 mg/dL (0.2-1.0); Potassium 3.2 mEq/L (3.5-5.1); Protein, Total 6.5 g/dL (6.4-8.2); Troponin High Sensitivity 5.6 pg/mL (<58.9)
--- NOTE | 2023-02-21 12:23 | ER ---
Nurse's Notes [facility] Name: Sonya Duff Age: 58 yrs Sex: Female : 1965 Arrival Date: 02/21/2023 Time: 10:29 Bed 7 Private MD: Ajay Veliz Diagnosis: Ocular pain, left eye-lower lid stye;Syncope Near;Fall on same level, unspecified Presentation: 02/21 10:38 Chief complaint: Patient states: "I got up two nights ago to go to the bathroom, I saw hb cartoon figures on the wall and then I blacked out and woke up on the floor, and now I have a horrible headache and my neck is hurting.". Coronavirus screen: At this time, the client does not indicate any symptoms associated with coronavirus-19. Ebola Screen: No symptoms or risks identified at this time. Initial Sepsis Screen: Does the patient meet any 2 criteria? No. Patient's initial sepsis screen is negative. Does the patient have a suspected source of infection? No. Patient's initial sepsis screen is negative. Risk Assessment: Do you want to hurt yourself or someone else? Patient reports no desire to harm self or others. Onset of symptoms was February 19, 2023. 10:38 Method Of Arrival: Ambulatory hb 10:38 Acuity: MICHELLE 3 hb Triage Assessment: 10:45 General: Appears in no apparent distress. Behavior is calm, cooperative. Pain: iw Complains of pain in head. Historical: - Allergies: 10:42 No Known Drug Allergies; hb - PMHx: 10:42 Hypertension; High Cholesterol; Gastric Reflux; Diabetes - NIDDM; breast cancer; hb - PSHx: 10:42 left knee repair; hysterectomy; breast reduction; hb - Immunization history:: Adult Immunizations up to date. - Social history:: Smoking status: Patient denies any tobacco usage or history of. Screenin:53 [facility] ED Fall Risk Assessment (Adult) Score/Fall Risk Level 0 - 2 = Low Risk. Abuse iw screen: Denies threats or abuse. Denies injuries from another. Nutritional screening: No deficits noted. Tuberculosis screening: No symptoms or risk factors identified. Assessment: 11:19 Reassessment: Pt to CT. aa5 11:56 Reassessment: Patient appears in no apparent distress at this time. Patient and/or iw family updated on plan of care and expected duration. Pain level reassessed. Patient is alert, oriented x 3, equal unlabored respirations, skin warm/dry/pink. Vital Signs: 10:38 BP 116 / 89; Pulse 96; Resp 16; Temp 98.1(TE); Pulse Ox 100% on R/A; Weight 57.61 kg; hb Height 5 ft. 0 in. ; Pain 7/10; 10:38 Body Mass Index 24.80 (57.61 kg, 152.4 cm) hb 10:38 Pain Scale: Adult hb NIH Stroke Scale Scores: 12:19 NIHSS Score: 0 [facility] ED Course: 10:33 Patient arrived in ED. mr 10:33 Ajay Veliz DO is Private Physician. mr 10:38 Marcos Cody MD is Attending Physician. nani 10:41 Triage completed. hb 10:42 Arm band placed on. hb 10:52 Maite Cowan, RN is Primary Nurse. iw 11:15 Initial lab(s) drawn, by me, sent to lab. COVID swab sent to lab. Flu and/or RSV swab aa5 sent to lab. Inserted saline lock: 22 gauge in right forearm, using aseptic technique. Blood collected. 11:24 CT Traumagram (Head C Spine CAP wo con) In Process Unspecified. EDMS 11:56 Patient has correct armband on for positive identification. Provided Education on: . iw 12:20 Ajay Veliz DO is Referral Physician. nani 12:20 Colby Valera MD is Referral Physician. nani 12:20 Vaibhav Cuevas MD is Referral Physician. nani 12:24 XRAY Chest (1 view) In Process Unspecified. EDMS 12:53 No provider procedures requiring assistance completed. IV discontinued, intact, iw bleeding controlled, No redness/swelling at site. Pressure dressing applied. Administered Medications: 11:44 Drug: NS 0.9% IV 500 ml IV at bolus once Route: IV; Rate: bolus; Site: right iw antecubital; 12:45 Follow up: IV Status: Completed infusion iw 11:44 Drug: foLIC Acid IVPB 1 mg IVPB once Route: IVPB; Site: right antecubital; iw 11:50 Follow up: IV Status: Completed infusion iw 12:42 Drug: Potassium PO Effervescent Tablet 25 mEq PO once; dissolve in 4 ounces of water or iw juice Route: PO; 12:50 Follow up: Response: No adverse reaction iw 12:42 Drug: Tobrex Ophthalmic Ointment 0.3 % 1 application Ophthalmic in left eye once Route: iw Ophthalmic; Site: left eye; 12:42 Drug: Trimethoprim-Sulfamethoxazole PO (160 mg-800 mg (DS) 1 tablet PO once Route: PO; iw 12:50 Follow up: Response: No adverse reaction iw 12:42 Drug: Aspirin PO Chewable Tablet 81 mg PO once Route: PO; iw 12:50 Follow up: Response: No adverse reaction iw 12:43 Not Given (Physician Discretion): ns 0.9% 1000 ml IV at 125 ml/hr continuous iw Medication: 11:20 VIS not applicable for this client. iw Outcome: 12:23 Discharge ordered by . nani 12:53 Discharged to home ambulatory, iw 12:53 Condition: good 12:53 Discharge instructions given to patient, Instructed on discharge instructions, follow up and referral plans. Demonstrated understanding of instructions, follow-up care, Prescriptions given X 2, 12:54 Patient left the ED. iw NIH Stroke Scale - NIH Stroke Score Date: 02/21/2023 Time: 12:19 Total Score = 0 10. Dysarthria (speech clarity - read or repeat words) - 0(Normal) 11. Extinction and Inattention (visual/tactile/auditory/spatial/personal) - 0(No abnormality) 1a. Level of Consciousness (LOC) - 0(Alert) 1b. Level of Consciousness (LOC) (Month \\T\\ Age) - 0(Both) 1c. LOC Commands (Open \\T\\ Closes Eyes/Convex Grinder Operator) - 0(Both) 2. Best Gaze (Lateral Gaze Paresis) - 0(Normal) 3. Visual Field Loss - 0(No visual loss) 4. Facial Palsy - 0(Normal) 5a. Left Arm: Motor (10-second hold) - 0(No drift) 5b. Right Arm: Motor (10-second hold) - 0(No drift) 6a. Left Leg: Motor (5-second hold - always test supine) - 0(No drift) 6b. Right Leg: Motor (5-second hold - always test supine) - 0(No drift) 7. Limb Ataxia (finger/nose \\T\\ heel/pressley - test with eyes open) - 0(Absent) 8. Sensory Loss (pinprick arms/legs/face) - 0(Normal) 9. Best Language: Aphasia (description/naming/reading) - 0(No aphasia) Initials: nani Signatures: Dispatcher [employer] EDMarcos Silver MD MD cha Rivera, Karrie, Reg Reg Maite Cowan RN RN iw Adriana Jay RN RN aa5 Mony Pickard RN RN Corrections: (The following items were deleted from the chart) 10:41 10:38 Acuity: MICHELLE 2 hb 02/22 07:33 12 12:53 Discharge instructions given to patient, Instructed on discharge iw instructions, follow up and referral plans. Demonstrated understanding of instructions, follow-up care, iw
--- NOTE | 2023-02-21 12:23 | EDPHYS ---
Physician Documentation [facility] Name: Sonya Duff Age: 58 yrs Sex: Female : 1965 Arrival Date: 02/21/2023 Time: 10:29 Bed 7 Private MD: Jose Alfredo [facility] ED Physician Marcos Cody HPI: 02/21 12:10 This 58 yrs old Female presents to ER via Ambulatory with complaints of Fall nani Injury, Headache, Eye Problem, Neck pain. 12:10 Details of fall: The patient fell from an upright position, while walking. Onset: The nani symptoms/episode began/occurred 2 day(s) ago. Associated injuries: The patient sustained injury to the head. Severity of symptoms: At their worst the symptoms were mild, in the emergency department the symptoms are unchanged. Historical: - Allergies: 10:42 No Known Drug Allergies; hb - PMHx: 10:42 Hypertension; High Cholesterol; Gastric Reflux; Diabetes - NIDDM; breast cancer; hb - PSHx: 10:42 left knee repair; hysterectomy; breast reduction; hb - Immunization history:: Adult Immunizations up to date. - Social history:: Smoking status: Patient denies any tobacco usage or history of. ROS: 12:16 Constitutional: Negative for fever, chills, and weight loss, ENT: Negative for injury, nani pain, and discharge, Neck: Negative for injury, pain, and swelling, Cardiovascular: Negative for chest pain, palpitations, and edema, Respiratory: Negative for shortness of breath, cough, wheezing, and pleuritic chest pain, Abdomen/GI: Negative for abdominal pain, nausea, vomiting, diarrhea, and constipation, Back: Negative for injury and pain, : Negative for injury, bleeding, discharge, and swelling, MS/Extremity: Negative for injury and deformity, Skin: Negative for injury, rash, and discoloration, Psych: Negative for depression, anxiety, suicide ideation, homicidal ideation, and hallucinations, Allergy/Immunology: Negative for hives, rash, and allergies, Endocrine: Negative for neck swelling, polydipsia, polyuria, polyphagia, and marked weight changes, 12:16 Eyes: Positive for pain, redness, of the left lower eyelid, Exam: 12:16 Constitutional: This is a well developed, well nourished patient who is awake, alert, nani and in no acute distress. Head/Face: Normocephalic, atraumatic. ENT: Nares patent. No nasal discharge, no septal abnormalities noted. Tympanic membranes are normal and external auditory canals are clear. Oropharynx with no redness, swelling, or masses, exudates, or evidence of obstruction, uvula midline. Mucous membranes moist. Neck: Trachea midline, no thyromegaly or masses palpated, and no cervical lymphadenopathy. Supple, full range of motion without nuchal rigidity, or vertebral point tenderness. No Meningismus. Chest/axilla: Normal chest wall appearance and motion. Nontender with no deformity. No lesions are appreciated. Cardiovascular: Regular rate and rhythm with a normal S1 and S2. No gallops, murmurs, or rubs. Normal PMI, no JVD. No pulse deficits. Respiratory: Lungs have equal breath sounds bilaterally, clear to auscultation and percussion. No rales, rhonchi or wheezes noted. No increased work of breathing, no retractions or nasal flaring. Abdomen/GI: Soft, non-tender, with normal bowel sounds. No distension or tympany. No guarding or rebound. No evidence of tenderness throughout. Back: No spinal tenderness. No costovertebral tenderness. Full range of motion. Skin: Warm, dry with normal turgor. Normal color with no rashes, no lesions, and no evidence of cellulitis. MS/ Extremity: Pulses equal, no cyanosis. Neurovascular intact. Full, normal range of motion. Neuro: Awake and alert, GCS 15, oriented to person, place, time, and situation. Cranial nerves II-XII grossly intact. Motor strength 5/5 in all extremities. Sensory grossly intact. Cerebellar exam normal. Normal gait. Psych: Awake, alert, with orientation to person, place and time. Behavior, mood, and affect are within normal limits. 12:16 Eyes: Pupils: no acute changes, equal, round, and reactive to light and accomodation, Extraocular movements: intact throughout, Conjunctiva: normal, no acute changes, Corneas: are normal, no acute changes, Sclera: no appreciated abnormality, no acute changes, Anterior chamber: normal, no acute changes, Lids and lashes: edema, erythema, stye, on the left lid, funduscopic exam reveals no obvious abnormalities, no appreciated papilledema, no retinal detachment, no enlargement of the optic cup, Visual horan: are intact, Nystagmus: is not appreciated, 12:19 Musculoskeletal/extremity: ROM: no acute changes, full active range of motion, full nani passive range of motion, Circulation is intact in all extremities. Sensation intact. Compartment Syndrome exam of affected extremity: is normal. Weight bearing: able to fully bear weight, without difficulty, DVT Exam: No signs of deep vein thrombosis. no pain, no swelling, no tenderness, negative Homans' sign noted on exam, no appreciated bluish discoloration, no erythema, no increased warmth, 12:29 ECG was reviewed by the Attending Physician. [facility] Vital Signs: 10:38 BP 116 / 89; Pulse 96; Resp 16; Temp 98.1(TE); Pulse Ox 100% on R/A; Weight 57.61 kg; hb Height 5 ft. 0 in. ; Pain 7/10; 10:38 Body Mass Index 24.80 (57.61 kg, 152.4 cm) hb 10:38 Pain Scale: Adult hb NIH Stroke Scale Scores: 12:19 NIHSS Score: 0 nani MDM: 10:38 Patient medically screened. nani 12:28 Differential Diagnosis altered mental status, flu. Differential diagnosis: contusion, nani fracture, multiple trauma, sprain, strain, cardiac arrhythmia, drug effect, emotional response, transient ischemic attack. Data reviewed: vital signs, nurses notes, lab test result(s), EKG, radiologic studies, CT scan, plain films. Consideration of Admission/Observation Patient was admitted/placed on observation. Escalation of care including admission/observation considered. I considered the following discharge prescriptions or medication management in the emergency department Medications were administered in the Emergency Department. See MAR. Independent interpretation of the following test(s) in the Emergency Department EKG: See my EKG interpretation above. Test considered but Not performed: MRI: no mri brain. Care significantly affected by the following chronic conditions: Diabetes, Hypertension, Cancer, gerd. 02/21 11:05 Order name: Basic Metabolic Panel; Complete Time: 11:52 nani 02/21 11:05 Order name: CBC with Diff; Complete Time: 11:52 nani 02/21 11:05 Order name: LFT's; Complete Time: 11:52 nani 02/21 11:05 Order name: Magnesium; Complete Time: 11:52 nani 02/21 11:05 Order name: NT PRO-BNP; Complete Time: 11:52 [facility] 02/21 11:05 Order name: PT-INR; Complete Time: 11:52 [facility] 02/21 11:05 Order name: Troponin HS; Complete Time: 11:52 [facility] 02/21 11:05 Order name: SARS RAPID; Complete Time: 11:52 [facility] 02/21 11:05 Order name: Flu; Complete Time: 11:52 [facility] 02/21 11:05 Order name: XRAY Chest (1 view) [facility] 02/21 11:05 Order name: CT Traumagram (Head C Spine CAP wo con); Complete Time: 11:52 [facility] 02/21 11:05 Order name: EKG; Complete Time: 11:05 [facility] 02/21 11:05 Order name: Cardiac monitoring; Complete Time: 11:19 [facility] 02/21 11:05 Order name: EKG - Nurse/Tech; Complete Time: 11:56 [facility] 02/21 11:05 Order name: IV Saline Lock; Complete Time: 11:19 [facility] 02/21 11:05 Order name: Labs collected and sent; Complete Time: 11:19 [facility] 02/21 11:05 Order name: O2 Per Protocol; Complete Time: 11:19 [facility] 02/21 11:05 Order name: O2 Sat Monitoring; Complete Time: 11:19 [facility] EC:29 Rate is 77 beats/min. Rhythm is regular. QRS [place] is Normal. [place] interval is normal. QRS nani interval is normal. QT interval is normal. No Q waves. T waves are Normal. No ST changes noted. Clinical impression: NSR w/ Non-specific ST/T Changes and No evidence of ischemia. Interpreted by me. Reviewed by me. Administered Medications: 11:44 Drug: NS 0.9% IV 500 ml IV at bolus once Route: IV; Rate: bolus; Site: right iw antecubital; 12:45 Follow up: IV Status: Completed infusion iw 11:44 Drug: foLIC Acid IVPB 1 mg IVPB once Route: IVPB; Site: right antecubital; iw 11:50 Follow up: IV Status: Completed infusion iw 12:42 Drug: Potassium PO Effervescent Tablet 25 mEq PO once; dissolve in 4 ounces of water or iw juice Route: PO; 12:50 Follow up: Response: No adverse reaction iw 12:42 Drug: Tobrex Ophthalmic Ointment 0.3 % 1 application Ophthalmic in left eye once Route: iw Ophthalmic; Site: left eye; 12:42 Drug: Trimethoprim-Sulfamethoxazole PO (160 mg-800 mg (DS) 1 tablet PO once Route: PO; iw 12:50 Follow up: Response: No adverse reaction iw 12:42 Drug: Aspirin PO Chewable Tablet 81 mg PO once Route: PO; iw 12:50 Follow up: Response: No adverse reaction iw 12:43 Not Given (Physician Discretion): ns 0.9% 1000 ml IV at 125 ml/hr continuous iw Disposition Summary: 02/21/23 12:23 Discharge Ordered Notes: Location: Home nani Problem: new nani Symptoms: have improved nain Condition: Stable nani Diagnosis - Ocular pain, left eye - lower lid stye nani - Syncope Near nani - Fall on same level, unspecified nani Followup: nani - With: Ajay Veliz DO - When: 2 - 3 days - Reason: Recheck today's complaints, Continuance of care, Re-evaluation by your physician Followup: nani - With: Colby Valera MD - When: 2 - 3 days - Reason: Recheck today's complaints, Re-evaluation by your physician Followup: nani - With: Vaibhav Cuevas MD - When: 2 - 3 days - Reason: Recheck today's complaints, Re-evaluation by your physician Discharge Instructions: - Discharge Summary Sheet nani - Near-Syncope nani - Stye nani - Syncope nani - Near-Syncope, [id number] nani - Syncope, [id number] nani - Weakness, [id number] nani - Aspirin and Your Heart nani Forms: - Medication Reconciliation Form [facility] - Thank You Letter [facility] - Antibiotic Education [facility] - Prescription Opioid Use [facility] - Patient Portal Instructions [facility] - Leadership Thank You Letter [facility] Prescriptions: - Tobrex 0.3 % Ophthalmic ointment - instill 1 application OPHTHALMIC route every 4 hours for 7 days; 3.5 gram; [facility] Refills: 0, Product Selection Permitted - Bactrim DS 800-160 mg Oral Tablet - take 1 tablet ORAL route every 12 hours for 10 days; 20 tablet; Refills: 0, nani Product Selection Permitted NIH Stroke Scale - NIH Stroke Score Date: 02/21/2023 Time: 12:19 Total Score = 0 10. Dysarthria (speech clarity - read or repeat words) - 0(Normal) 11. Extinction and Inattention (visual/tactile/auditory/spatial/personal) - 0(No abnormality) 1a. Level of Consciousness (LOC) - 0(Alert) 1b. Level of Consciousness (LOC) (Month \T\ Age) - 0(Both) 1c. LOC Commands (Open \T\ Closes Eyes/Integration Software Engineer) - 0(Both) 2. Best Gaze (Lateral Gaze Paresis) - 0(Normal) 3. Visual Field Loss - 0(No visual loss) 4. Facial Palsy - 0(Normal) 5a. Left Arm: Motor (10-second hold) - 0(No drift) 5b. Right Arm: Motor (10-second hold) - 0(No drift) 6a. Left Leg: Motor (5-second hold - always test supine) - 0(No drift) 6b. Right Leg: Motor (5-second hold - always test supine) - 0(No drift) 7. Limb Ataxia (finger/nose \T\ heel/pressley - test with eyes open) - 0(Absent) 8. Sensory Loss (pinprick arms/legs/face) - 0(Normal) 9. Best Language: Aphasia (description/naming/reading) - 0(No aphasia) Initials: nani Signatures: Dispatcher [employer] Marcos Resendiz MD MD cha Williams, Irene, RN RN iw Baxter, Heather, RN RN
[2023-02-21] MEDS ORDERED: POTASSIUM 25 MEQ EFFERV TAB ONE (12:31)
[2023-02-21] MEDS ORDERED: SMZ./TMP. 800/160 MG TABLET ONE (12:31)
[2023-02-21] MEDS ORDERED: TOBRAMYCIN SULF 0.3% OPTH OINT ONE (12:31)
--- NOTE | 2023-02-21 12:31 | RAD REPORT ---
EXAM DESCRIPTION: RAD - Chest Single View - 02/21/2023 12:22 pm CLINICAL HISTORY: COUGH Chest pain. COMPARISON: <Comparisons> FINDINGS: Portable technique limits examination quality. The lungs are grossly clear. The heart is normal in size. No displaced fractures. IMPRESSION: No acute intrathoracic process suspected.
[2023-02-21 13:37] VITALS: BP 116/89; TEMP 98.1; O2SAT 100
--- NOTE | 2023-02-24 13:39 | EKG ---
Test Date: 2023-02-21 Test Time: 11:51:37 Imagery Intelligence: PUMA MEASUREMENT RESULTS: Intervals: Rate: 77 ME: 120 QRSD: 74 QT: 400 QTc: 452 Lily: P: 35 ME: 120 QRS: 24 T: 24 INTERPRETIVE STATEMENTS: Normal sinus rhythm with sinus arrhythmia Low voltage QRS Borderline ECG Compared to ECG 02/28/2022 19:23:05 Low QRS voltage now present Electronically Signed On 02-24-23 13:30:24 RADIO REPAIRER by Ramon Peña
== END 2023-02-21 12:54 | disposition home or self-care (01) ==
LOC: ER 10:29
DX: H00.015 Hordeolum externum left lower eyelid (principal); R55 Syncope and collapse; W18.30XA Fall on same level, unspecified, initial encounter; Z11.52 Encounter for screening for COVID-19
CPT/HCPCS: 96361; 93005; 85025; 80048; 36415; 83735; 85610; 80076; 84484; 83880; 87804 ×2; 70450; 71250; 72125; 71045; 96374; 99284; 87811; J7030

== ENCOUNTER 2023-09-22 12:04 | Emergency (ER) | payer OTHER ==
--- OUTSIDE RECORDS SUMMARY | 2023-09-22 12:07 | XMS REPORT | Clinical Summary ---
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 30 tablet 1 Active Linzess 290 mcg cap Take 1 capsule by mouth as needed. 1 Active zolpidem (AMBIEN) 10 mg tablet Take 1 tablet (10 mg) by mouth nightly as needed. 2 Active cholecalciferol, vitamin D3, (Vitamin D3) 5,000 units tab tabletIndications: Infiltrating duct carcinoma, 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; Left> Take 1 tablet (5,000 Units) by mouth daily. OTC 2 Active UNABLE TO FIND Med Name:migraine medication Active letrozole (FEMARA) 2.5 mg tabletIndications: Infiltrating duct carcinoma, 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; Left> TAKE ONE (1) TABLET(S) BY MOUTH DAILY. 90 tablet 3 4 Active gabapentin (NEURONTIN) 400 mg capsule Take 2 capsules (800 mg) by mouth twice daily. Active pregabalin (Lyrica) 150 mg capsuleIndications :Drug-induced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 Take 1 capsule (150 mg) by mouth twice daily. 60 capsule 2 02/06/20 23 Discontinued(No t Applicable) letrozole (FEMARA) 2.5 mg tabletIndications: Infiltrating duct carcinoma, 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; Left> Take 1 tablet (2.5 mg) by mouth daily. 90 tablet 3 3 04/09/19 24 Discontinued ergocalciferol (Vitamin D2) 50,000 units capsuleIndications :Vitamin D deficiency, not otherwise specified Take 1 capsule (50,000 Units) by mouth every 7 days for 8 doses. 1 cap weekly for 8 weeks, then take Vit D3 5000 IU (OTC) once daily 8 capsule 3 09/24/19 23 gabapentin (NEURONTIN) 300 mg capsule Take 1 capsule (300 mg) by mouth. 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 Cancer Staging:Pathologic:Stage IB(pT2, pN0(sn), cM0, G3, ER+, [place]+, HER2-, Oncotype DX score: 43) - Unsigned Encounters Date Type Department Care Team Description 09/07/2023 10:00 AM CDT Follow-Up [facility] - Thoracic Medicine [address] [place] [address] Justin Smith MD Infiltrating duct carcinoma, 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; Left> 09/07/2023 7:45 AM CDT Ancillary Procedure [facility] [address] [facility] [address] [place] [address] Irene Sherman APRN Infiltrating duct carcinoma, 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; Left> 09/07/2023 6:30 AM CDT Ancillary Procedure MD Escobar Denny [address] [place] [address] Irene Sherman APRN Infiltrating duct carcinoma, 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; Left> 09/07/2023 Travel 04/21/2023 Telephone 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 02/05/2023 1:40 PM TECHNOLOGY INFUSION SPECIALIST Follow-Up MD Escobar [facility] - Thoracic Medicine [address] [place] [id number] Justin Smith MD Infiltrating duct carcinoma, 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; Left> 02/05/2023 Travel 09/29/2022 11:00 AM CDT Telemedicine MD [facility] - Genetics [address] [place] [id number] Irene Sherman APRN McKeon, Andrew J, [facility] 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 70's Colon cancer Maternal Grandfather dx. 60' s Lung cancer Maternal Uncle 2 70s+smoker Colon cancer Other 1 dx. 70 Lymphoma Son follicular Relation Name Status Comments Brother 1 Alive Brother 2 (Age 54) Liver cirr hosis Daughter 1 Alive no cancer Daughter 2 Alive no cancer Father Alive Grandchild Alive Maternal Aunt 1 (Age 70s) Covid Maternal Aunt 2 Alive 2 living aun ts, no cancer Maternal Cousin Alive multiple phil toni/nephews no cancer history Maternal Grandfather (Age 90s) Maternal Grandmother (Age 90s) Maternal Uncle 1 (Age 70s) 2 unc lesno cancer Maternal Uncle 2 (Age 70s) Maternal Uncle 3 Alive no cancer Mother Keila Maxi Alive Benign breas t biopsyhysterectomy at 27 Niece/Nephew Alive No nieces/nephe ws with cancer history Other 1 Alive Other 2 Alive Other 3 Alive Paternal Aunt Alive 4 aunts no can cer Paternal Grandfather Paternal Grandmother Paternal Uncle Alive 3 uncles no c ancer Sister Alive Son Alive Social History Tobacco Use Types Packs/Day Years Used Date Smoking Tobacco: Never Smokeless Tobacco: Never Alcohol Use Standard Drinks/Week Comments Never 0 (1 standard drink = 0.6 oz pur e alcohol) Sex and Gender Information Value Date Recorded Sex Assigned at Not on file Gender Identity Not on file Sexual Orientation Not on file Job Start Date Occupation Industry Not on file Not on file Not on file Obstetrics History Last Filed Vital Signs Vital Sign Reading Time Taken Comments Blood Pressure 146/87 09/07/2023 9:14 AM CDT Pulse 68 09/07/2023 9:14 AM CDT Temperature 36.6 C (97.9 F) 09/07/2023 9:14 AM CD T Respiratory Rate 20 09/07/2023 9:14 AM CDT Oxygen Saturation 98% 09/07/2023 9:14 AM CDT Inhaled Oxygen Concentration - - Weight 48.2 kg (106 lb 4.2 oz) 09/07/2023 9:28 A M CDT Height 148.5 cm (4' 10.47") 09/07/2023 9:15 AM C DT Body Mass Index 21.86 09/07/2023 9:15 AM CDT Plan of Treatment Upcoming Encounters Date Type Department Care Team (Late st Contact Info) Description 03/09/2024 9:30 AM TECHNOLOGY INFUSION SPECIALIST Lab MD [facility] [place] [facility] [address] [facility] [address] [place] [address] Ierne Sherman, MARCUS [address] [place], [place] [id number] [email or web address] 03/09/2024 10:20 AM TECHNOLOGY INFUSION SPECIALIST Follow-Up MD [facility] - Thoracic Medicine [address] [place] [address] Justin Smith MD [address] [place] [address] [email or web address] Maintenance Due Date Last Done Comments COVID-19 Vaccine (3 - Pfizer risk series) 12/07/2020 11/09/2020, 10/19/2020 Influenza Vaccine 11/22/2023 Procedures Procedure Name Priority Date/Time Associated Diagnosis Comments US CHEST/INFRACLAV Routine 09/07/2023 8: 40 AM CDT Infiltrating duct carcinoma, 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; Left> US BREAST COMPLETE BILATERAL Routine 09/07/2023 8:40 AM CDT Infiltrating duct carcinoma, 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; Left> MAMMO DIGITAL DIAGNOSTIC BILATERAL W PARTH Routine 09/07/2023 7:50 AM CDT Infiltrating duct carcinoma, 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; Left> FREE THYROXINE Add-On 09/07/2023 6:12 AM CDT Infiltrating duct carcinoma, 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; Left> THYROID STIMULATING HORMONE Add-On 09/07/2023 6:12 AM CDT Infiltrating duct carcinoma, 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; Left> .CBC Routine 09/07/2023 6:12 AM CDT Infiltrating duct carcinoma, 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; Left> VITAMIN D 25 HYDROXY LEVEL Routine 09/07/2023 6:12 AM CDT Infiltrating duct carcinoma, 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; Left> URIC ACID Routine 09/07/2023 6:12 AM CDT Infiltrating duct carcinoma, 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; Left> PHOSPHORUS LEVEL Routine 09/07/2023 6:12 AM CDT Infiltrating duct carcinoma, 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; Left> MAGNESIUM LEVEL Routine 09/07/2023 6:12 AM CDT Infiltrating duct carcinoma, 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; Left> LACTATE DEHYDROGENASE Routine 09/07/2023 6:12 AM CDT Infiltrating duct carcinoma, 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; Left> COMPREHENSIVE METABOLIC PANEL Routine 09/07/2023 6:12 AM CDT Infiltrating duct carcinoma, 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; Left> COMPLETE BLOOD COUNT W/ DIFFERENTIAL Routine 09/07/2023 6:12 AM CDT Infiltrating duct carcinoma, 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; Left> .CBC Routine 02/05/2023 12:55 PM TECHNOLOGY INFUSION SPECIALIST Infiltrating duct carcinoma, 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; Left> VITAMIN D 25 HYDROXY LEVEL Routine 02/05/2023 12:55 PM TECHNOLOGY INFUSION SPECIALIST Infiltrating duct carcinoma, 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; Left> URIC ACID Routine 02/05/2023 12:55 PM TECHNOLOGY INFUSION SPECIALIST Infiltrating duct carcinoma, 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; Left> PHOSPHORUS LEVEL Routine 02/05/2023 12:5 5 PM TECHNOLOGY INFUSION SPECIALIST Infiltrating duct carcinoma, 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; Left> MAGNESIUM LEVEL Routine 02/05/2023 12:55 PM TECHNOLOGY INFUSION SPECIALIST Infiltrating duct carcinoma, 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; Left> LACTATE DEHYDROGENASE Routine 02/05/2023 12:55 PM TECHNOLOGY INFUSION SPECIALIST Infiltrating duct carcinoma, 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; Left> COMPREHENSIVE METABOLIC PANEL Routine 02/05/2023 12:55 PM TECHNOLOGY INFUSION SPECIALIST Infiltrating duct carcinoma, 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; Left> COMPLETE BLOOD COUNT W/ DIFFERENTIAL Routine 02/05/2023 12:55 PM TECHNOLOGY INFUSION SPECIALIST Infiltrating duct carcinoma, 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; Left> after 09/22/2022 Results * US Chest/Infraclav for Breast Ultrasound (Add-on Only) (09/07/2023 8:40 AM CDT) Anatomical Region Laterality Modality Chest Ultrasound 09/07/2023 10:4 2 AM CDT Impressions 09/07/2023 10:42 AM CDT There is no evidence of malignancy. Follow-up mammogram in 1 year is recommended. BI-RADS Category 2: Benign Finding(s) Narrative 09/07/2023 10:42 AM CDT CLINICAL INDICATION: Patient is a 58 year old female and is seen for history of breast cancer FILMS COMPARED The present examination has been compared to prior imaging studies performed at [facility] on 07/05/2021, 07/23/2022 and 09/07/2023. Images were obtained in multiple scanning planes. Real-time sonographic imaging of both breasts (including all 4 quadrants and retroareolar region) was performed. Real time sonographic imaging of bilateral axilla was performed. Real-time sonographic imaging of the left regional enrique basins including ultrasound of the chest/mediastinum to evaluate the axillary (level I,II,III) and internal mammary regions was performed. There are bilateral pre-pectoral silicone gel implants. There has been no significant interval change. There is a post surgical scar in the left breast outer hemisphere at 3 o'clock located 6 centimeters from the nipple. Benign appearing areas of fat necrosis noted. There is no sonographic evidence of tumor recurrence. There is no evidence of any solid mass or other abnormality in the right breast and axilla level I. Left Regional Enrique Basins: No suspicious axillary levels I, II, III (infraclavicular) or internal mammary lymph node is identified. Procedure Note Francine Cox, DO - 09/07/2023 CLINICAL INDICATION: Patient is a 58 year old female and is seen for history of breast cancer FILMS COMPARED The present examination has been compared to [facility], 07/23/2022 and09/07/2023. Images were obtained in multiple scanning planes. Real-time sonographic imaging of both breasts (including all 4 quadrantsand retroareolar region) was performed. Real time sonographic imaging ofbilateral axilla was performed. Real-time sonographic imaging of the left regionalnodal basins including ultrasound of the chest/mediastinum to evaluate theaxillary (level I,II,III) and internal mammary regions was performed. There are bilateral pre-pectoral silicone gel implants. There has been no significant interval change. There is a post surgical scar in the left breast outer hemisphere at 3o'clock located 6 centimeters from the nipple. Benign appearing areas of fatnecrosis noted. There is no sonographic evidence of tumor recurrence. There is no evidence of any solid mass or other abnormality in the rightbreast and axilla level I. Left Regional Enrique Basins: No suspicious axillary levels I, II, III (infraclavicular) or internal mammary lymph node is identified. IMPRESSION: There is no evidence of malignancy. Follow-up mammogram in 1 year is recommended. BI-RADS Category 2: Benign Finding(s) Irene Sherman APRN IMG US ORDERABL ES * US Breast Bilateral incl Enrique Basins (09/07/2023 8:40 AM CDT) Anatomical Region Laterality Modality Breast Bilateral Ultrasound 09/07/2023 10:4 2 AM CDT Impressions 09/07/2023 10:42 AM CDT There is no evidence of malignancy. Follow-up mammogram in 1 year is recommended. BI-RADS Category 2: Benign Finding(s) Narrative 09/07/2023 10:42 AM CDT CLINICAL INDICATION: Patient is a 58 year old female and is seen for history of breast cancer FILMS COMPARED The present examination has been compared to prior imaging studies performed at [facility] on 07/05/2021, 07/23/2022 and 09/07/2023. Images were obtained in multiple scanning planes. Real-time sonographic imaging of both breasts (including all 4 quadrants and retroareolar region) was performed. Real time sonographic imaging of bilateral axilla was performed. Real-time sonographic imaging of the left regional enrique basins including ultrasound of the chest/mediastinum to evaluate the axillary (level I,II,III) and internal mammary regions was performed. There are bilateral pre-pectoral silicone gel implants. There has been no significant interval change. There is a post surgical scar in the left breast outer hemisphere at 3 o'clock located 6 centimeters from the nipple. Benign appearing areas of fat necrosis noted. There is no sonographic evidence of tumor recurrence. There is no evidence of any solid mass or other abnormality in the right breast and axilla level I. Left Regional Enrique Basins: No suspicious axillary levels I, II, III (infraclavicular) or internal mammary lymph node is identified. Procedure Note Francine Cox DO - 09/07/2023 CLINICAL INDICATION: Patient is a 58 year old female and is seen for history of breast cancer FILMS COMPARED The present examination has been compared to prior imaging studiesperformed at [facility] on 07/05/2021, 07/23/2022 and09/07/2023. Images were obtained in multiple scanning planes. Real-time sonographic imaging of both breasts (including all 4 quadrantsand retroareolar region) was performed. Real time sonographic imaging ofbilateral axilla was performed. Real-time sonographic imaging of the left regionalnodal basins including ultrasound of the chest/mediastinum to evaluate theaxillary (level I,II,III) and internal mammary regions was performed. There are bilateral pre-pectoral silicone gel implants. There has been no significant interval change. There is a post surgical scar in the left breast outer hemisphere at 3o'clock located 6 centimeters from the nipple. Benign appearing areas of fatnecrosis noted. There is no sonographic evidence of tumor recurrence. There is no evidence of any solid mass or other abnormality in the rightbreast and axilla level I. Left Regional Enrique Basins: No suspicious axillary levels I, II, III (infraclavicular) or internal mammary lymph node is identified. IMPRESSION: There is no evidence of malignancy. Follow-up mammogram in 1 year is recommended. BI-RADS Category 2: Benign Finding(s) Irene Sherman APRN IMG US ORDERABL ES * Mammography Digital Diagnostic Bilateral with Parth (09/07/2023 7:50 AM CDT) Anatomical Region Laterality Modality Breast Bilateral Mammography 09/07/2023 10:3 4 AM CDT Impressions 09/07/2023 10:34 AM CDT There is no mammographic evidence of malignancy. Follow-up mammogram in 1 year is recommended. BI-RADS Category 2: Benign Finding(s) Narrative 09/07/2023 10:34 AM CDT CLINICAL INDICATION: Patient is a 58 year old female and is seen for history of breast cancer, patient with intentional interval 100lb+ weight loss MAMMO DIGITAL DIAGNOSTIC BILATERAL W PARTH Digital Mammogram evaluated with Computer Aided Detection (CAD). COMPARISON: The present examination has been compared to prior imaging studies performed at an outside location on 07/24/2017, 05/27/2019 and 08/22/2019, and at [facility] on 07/05/2021 and 07/23/2022. FINDINGS: The breasts are heterogeneously dense, which may obscure small masses. There are bilateral pre-pectoral silicone gel implants. 1: There is a post surgical scar with associated surgical clips in the left breast outer hemisphere at 2 to 3 o'clock. 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 There is no mammographic evidence of tumor recurrence. 2: There are benign appearing calcifications with scattered distribution in both breasts. Patient is status bilateral mastopexy. Tomosynthesis performed in CC and MLO projections. Procedure Note Francine Cox DO - 09/07/2023 CLINICAL INDICATION: Patient is a 58 year old female and is seen for history of breastcancer, patient with intentional interval 100lb+ weight loss MAMMO DIGITAL DIAGNOSTIC BILATERAL W PARTH Digital Mammogram evaluated with Computer Aided Detection (CAD). COMPARISON: The present examination has been compared to prior imaging studiesperformed at an outside location on 07/24/2017, 05/27/2019 and 08/22/2019, and at [facility] on 07/05/2021 and 07/23/2022. FINDINGS: The breasts are heterogeneously dense, which may obscure small masses. There are bilateral pre-pectoral silicone gel implants. 1: There is a post surgical scar with associated surgical clips in theleft breast outer hemisphere at 2 to 3 o'clock. Patient is status leftbreast conservation surgery in 2019 for IDC and DCIS. There is no mammographic evidence of tumor recurrence. 2: There are benign appearing calcifications with scattered distributionin both breasts. Patient is status bilateral mastopexy. Tomosynthesis performed in CC and MLO projections. IMPRESSION: There is no mammographic evidence of malignancy. Follow-up mammogram in 1 year is recommended. BI-RADS Category 2: Benign Finding(s) Irene Sherman APRN [facility] ORDERABLES * (ABNORMAL) .CBC (09/07/2023 6:12 AM CDT) Only the most recent of2 resultswithin the time period is included. White Blood Cell 5.7 4.1 - 10.5 K/uL 09/07/2023 6:28 AM [facility] Red Blood Cell 4.70 3.99 - 5.46 M/uL 09/07/2023 6:28 AM [facility] Hemoglobin 15.2 12.2 - 15.3 g/dL 09/07/2023 6:28 AM [facility] Hematocrit 43.7 36.4 - 46.8 % 09/07/2023 6:28 AM [facility] Mean Cell Volume 93 82 - 99 fL 09/07/2023 6:28 AM [facility] Mean Cell Hemoglobin 32.3 26.6 - 33.2 pg 09/07/2023 6:28 AM [facility] Mean Cell Hemoglobin Concentration 34.8 31.1 - 35.2 g/dL 09/07/2023 6:28 AM [facility] RDW-SD 39.4 37.5 - 49.7 fL 09/07/2023 6:28 AM [facility] Red Cell Diameter Width 11.4(L) 11.6 - 15.5 % 09/07/2023 6:28 AM [facility] Platelet 258 160 - 397 K/uL 09/07/2023 6:28 AM [facility] Mean Platelet Volume 9.6 9.1 - 12.6 fL 09/07/2023 6:28 AM [facility] Neutrophil % 77.1(H) 43.2 - 72.7 % 09/07/2023 6:28 AM [facility] Lymphocyte % 12.4(L) 16.8 - 46.2 % 09/07/2023 6:28 AM [facility] Monocyte % 10.1 5.1 - 12.5 % 09/07/2023 6:28 AM [facility] Eosinophil % 0.0(L) 0.4 - 6.3 % 09/07/2023 6:28 AM [facility] Basophil % 0.2 0.2 - 1.4 % 09/07/2023 6:28 AM [facility] IGRE % 0.2 0.1 - 1.5 % 09/07/2023 6:28 AM [facility] Comment:The IGRE% includes M etamyelocytes, Myelocytes and Promyelocytes. Neutrophil Abs 4.41 1.95 - 7.25 K/uL 09/07/2023 6:28 AM [facility] Lymphocyte Abs 0.71(L) 1.01 - 3.24 K/uL 09/07/2023 6:28 AM [facility] Monocyte Abs 0.58 0.24 - 0.85 K/uL 09/07/2023 6:28 AM [facility] Eosinophil Abs 0.00(L) 0.02 - 0.50 K/uL 09/07/2023 6:28 AM [facility] Basophil Abs 0.01(L) 0.02 - 0.09 K/uL 09/07/2023 6:28 AM [facility] IG Abs 0.01 0.01 - 0.12 K/uL 09/07/2023 6:28 AM [facility] Blood Peripheral blood specimen / Unknown Port / Unknown 09/07/2023 6:12 AM CDT 09/07/2023 6:14 AM CDT Irene Opal Sherman HUMAN RESOURCES DESIGNATE LAB BLOOD ORDER [facility] [address] [facility], [facility] [address] [place] [address] * (ABNORMAL) Comprehensive Metabolic Panel (09/07/2023 6:12 AM CDT) Only the most recent of2 resultswithin the time period is included. Bilirubin Total 0.8 0.0 - 1.2 mg/dL 09/07/2023 6:46 AM [facility] Comment:Indocyanine Green (I CG) may cause falsely elevated bilirubin results. Total and direct bilirubin must not be measured from samples containing indocyanine green. False elevation of total bilirubin can be seen in patients with IgG concentrations above 28 g/L. eGFR 103 >=60 mL/min/1. 73 sq. m 09/07/2023 6:46 AM [facility] Comment: The eGFRcr is calculated with the 2020 CKD-EPI creatinine equation using creatinine, patient's age, and sex for adults 18 years of age and older. Other factors, especially muscle mass, may affect accuracy and need to be considered. According to the Kidney Disease: Improving Global Outcomes (KDIGO) CKD Work Group 2012 Clinical Practice Guideline, chronic kidney disease (CKD) is defined as the abnormalities of kidney structure or function, present for more than 3 months, with implications for health. CKD should be classified by cause, GFR category, and albuminuria category. KDIGO guidelines provide the following GFR categories. Stage / Description / GFR mL/min/1.73 m2: G1* / Normal or high / >= 90 G2* / Mildly decreased / 60-89 G3a / Mildly to moderately decreased / 45-59 G3b / Moderately to severely decreased / 30-44 G4 / Severely decreased / 15-29 G5 / Kidney failure / <15 *In the absence of evidence of kidney damage, neither G1 nor G2 fulfill criteria for CKD. Tot Protein 7.5 6.4 - 8.3 gm/dL 09/07/2023 6:46 AM [facility] Calcium Level Total 9.5 8.2 - 10.2 mg/dL 09/07/2023 6:46 AM [facility] Alkaline Phosphatase 90 35 - 104 U/L 09/07/2023 6:46 AM [facility] Albumin Level 4.6 3.5 - 5.2 gm/dL 09/07/2023 6:46 AM [facility] AST 18 <=32 U/L 09/07/2023 6:46 AM [facility] ALT 11 <=33 U/L 09/07/2023 6:46 AM [facility] Sodium Level 139 136 - 145 mmol/L 09/07/2023 6:46 AM [facility] Potassium Level 4.0 3.4 - 4.5 mmol/L 09/07/2023 6:46 AM [facility] Chloride 102 98 - 107 mmol/L 09/07/2023 6:46 AM [facility] CO2 26 22 - 29 mmol/L 09/07/2023 6:46 AM [facility] Anion Gap 11 4 - 14 mmol/L 09/07/2023 6:46 AM [facility] Creatinine 0.65 0.51 - 0.95 mg/dL 09/07/2023 6:46 AM [facility] [facility] 10 6 - 23 mg/dL 09/07/2023 6:46 AM [facility] Glucose Level 110(H) 70 - 99 mg/dL 09/07/2023 6:46 AM [facility] Comment: Effective 10/17/15, the glucose reference intervals have been updated based on [place] Diabetes [employer] guidelines (Standards of Medical Care in Diabetes 2016. Diabetes Care 2016; 39: S13-S22). Fasting blood glucose: Normal: 70-99 mg/dL Impaired fasting glucose (increased risk for diabetes or pre-diabetes): 100-125 mg/dL Diabetes mellitus: >/=126 mg/dL Random blood glucose: Normal: 70-199 mg/dL Note: Random glucose >100 mg/dL is associated with increased risk for diabetes. Blood Peripheral blood specimen / Unknown Port / Unknown 09/07/2023 6:12 AM CDT 09/07/2023 6:14 AM CDT Irene Opal Sherman HUMAN RESOURCES DESIGNATE LAB BLOOD ORDER CATIA Performing Organization Address [facility] Co de Phone Number [address], [address] [address] * Vitamin D 25OH (09/07/2023 6:12 AM CDT) Only the most recent of2 resultswithin the time period is included. Vitamin D 25 OH 44 30 - 100 ng/mL 09/07/2023 7:35 AM CDT [facility] Blood Peripheral blood specimen / Unknown Port / Unknown 09/07/2023 6:12 AM CDT 09/07/2023 6:14 AM CDT [facility] - 09/07/2023 7:35 AM CDT Reference Range: Deficiency: <=20 ng/mL Insufficiency: 21-29 ng/mL Sufficiency: 30-100 ng/mL Potential toxicity: >100 ng/mL Irene Sherman APRN LAB BLOOD ORDER CATIA Performing Organization Address [facility] Co de Phone Number [address] [address] * Uric Acid (09/07/2023 6:12 AM CDT) Only the most recent of2 resultswithin the time period is included. Uric Acid 3.5 2.4 - 5.7 mg/dL 09/07/2023 6:46 AM CDT [facility] Blood Peripheral blood specimen / Unknown Port / Unknown 09/07/2023 6:12 AM CDT 09/07/2023 6:14 AM CDT Irene Sherman HUMAN RESOURCES DESIGNATE LAB BLOOD ORDER CATIA [address], [address] [address] * TSH (09/07/2023 6:12 AM CDT) Thyroid Stimulating Hormone 0.77 0.27 - 4.20 mcunit/mL 09/07/2023 2:24 PM CDT [facility] Blood Peripheral blood specimen / Unknown Port / Unknown 09/07/2023 6:12 AM CDT 09/07/2023 6:14 AM CDT Irene Sherman HUMAN RESOURCES DESIGNATE LAB BLOOD ORDER CATIA [address], [address] [address] * Free T4 (09/07/2023 6:12 AM CDT) T4 (Thyroxine) Free 1.01 0.93 - 1.70 ng/dL 09/07/2023 2:24 PM CDT [facility] Blood Peripheral blood specimen / Unknown Port / Unknown 09/07/2023 6:12 AM CDT 09/07/2023 6:14 AM CDT Irene Sherman HUMAN RESOURCES DESIGNATE LAB BLOOD ORDER CATIA [address], [address] [address] * Phosphorus Level (09/07/2023 6:12 AM CDT) Only the most recent of2 resultswithin the time period is included. Phosphorus Level 4.5 2.5 - 4.5 mg/dL 09/07/2023 6:46 AM CDT [facility] Blood Peripheral blood specimen / Unknown Port / Unknown 09/07/2023 6:12 AM CDT 09/07/2023 6:14 AM CDT Irene Opal Sherman APRN LAB BLOOD ORDER CATIA [address], [facility] [address] [place] [address] * Magnesium Level (09/07/2023 6:12 AM CDT) Only the most recent of2 resultswithin the time period is included. Magnesium Level 2.1 1.6 - 2.6 mg/dL 09/07/2023 6:46 AM CDT [facility] Blood Peripheral blood specimen / Unknown Port / Unknown 09/07/2023 6:12 AM CDT 09/07/2023 6:14 AM CDT Irene Opal Sherman APRN LAB BLOOD ORDER CATIA Performing Organization Address [facility]/ZIP Co de Phone Number [address], [facility] [address] [place] [address] * LDH (09/07/2023 6:12 AM CDT) Only the most recent of2 resultswithin the time period is included. LDH 208 135 - 214 U/L 09/07/2023 6:46 AM CDT [facility] Blood Peripheral blood specimen / Unknown Port / Unknown 09/07/2023 6:12 AM CDT 09/07/2023 6:14 AM CDT Narrative [facility] - 09/07/2023 6:46 AM CDT Results greater than 1651 U/L may not be reliable due to matrix effect with extended dilution as it exceeds the counter help's recommended limit. Caution should be exercised when interpreting such values and done in conjunction with clinical context. Irene Sherman APRN LAB BLOOD ORDER CATIA [address], [facility] [address] [place] [address] after 09/22/2022 Care Teams Balancer Relationship Specialty Start Date End Date Justin Smith MD [address] [place] [phone] [email or web address] PCP - General Medical Oncology 09/27/19 Meghann Daigle MD [address] [place] [phone] PCP - External Referring Surgical Oncology 09/27/19 Calixto Arroyo MD [facility] [place], [place] [id number] [email or web address] PCP - External Follow Up A 05/18/20 Ajay Veliz DO [address] [facility] [address] [place], [place] [id number] [email or web address] PCP - External Primary Care Provider Family Practice 12/25/21 Virginia Dupree MD [address] [place] [phone] [email or web address] Physician Plastic and Reconstructive Surgery 04/20/23 [place] [address] [place] [id number] [email or web address] Consulting Physician Radiation Oncology 10/12/19
--- NOTE | 2023-09-22 13:03 | RAD REPORT ---
EXAM DESCRIPTION: CT - Facial Bones W/ Mpr - 09/22/2023 12:40 pm CLINICAL HISTORY: Facial injury with pain status post fall COMPARISON: None TECHNIQUE: Computed axial tomography of the face was obtained. Coronal and sagittal reconstruction w as performed. All CT scans are performed using dose optimization technique as appropriate and may include automated exposure control or mA/KV adjustment according to patient size. FINDINGS: A fracture is not seen. Edema within the anterior subcutaneous tissues. A TMJ dislocation is not noted. The globes are intact. Fluid within the sinuses is not seen. Mild chronic right maxillary sinusitis IMPRESSION: Negative for a facial fracture.
[2023-09-22] MEDS ORDERED: TDAP (DIPHTH,PERTUSS(ACELL),TET VAC) 0.5 ML VIAL IMVAC ONE (13:16)
--- NOTE | 2023-09-22 13:47 | ER ---
Nurse's Notes [facility] Name: Sonya Duff Age: 58 yrs Sex: Female : 1965 Arrival Date: 09/22/2023 Time: 12:04 Bed 9 Private MD: Diagnosis: Right Jaw Contusion Presentation: 09/21 12:13 Chief complaint: Patient states: she fell yesterday after being pulled by her dog. ap3 patient states she fell onto the road hitting her chin, knees, and her right wrist. Patient complains of pain to her chin, and a headache of which she rates a 8/10 on the pain scale at this time. patient denies LOC or being on any blood thinner. Coronavirus screen: At this time, the client does not indicate any symptoms associated with coronavirus-19. Ebola Screen: No symptoms or risks identified at this time. Initial Sepsis Screen: Does the patient meet any 2 criteria? No. Patient's initial sepsis screen is negative. Does the patient have a suspected source of infection? No. Patient's initial sepsis screen is negative. Risk Assessment: Do you want to hurt yourself or someone else? Patient reports no desire to harm self or others. Onset of symptoms was September 21, 2023. 12:13 Method Of Arrival: Ambulatory ap3 12:13 Acuity: MICHELLE 3 ap3 Triage Assessment: 12:16 General: Appears in no apparent distress. Behavior is calm, cooperative, appropriate ap3 for age. Pain: Complains of pain in chin, right wrist, hands and knees Pain currently is 8 out of 10 on a pain scale. Pain began 1 day ago. Neuro: Level of Consciousness is awake, alert, obeys commands, Oriented to person, place, time, situation, Appropriate for age Gait is steady, Speech is normal. Cardiovascular: Patient's skin is warm and dry. Respiratory: Airway is patent Respiratory effort is even, unlabored, Respiratory pattern is regular, symmetrical. Historical: - Allergies: 12:15 No Known Allergies; ap3 - Home Meds: 14:04 citalopram 10 mg tab 1 tab once daily [Active]; letrozole 2.5 mg oral tablet 1 tab tl4 daily [Active]; zolpidem 10 mg Oral tab 1 tab once daily [Active]; tizanidine oral [Active]; gabapentin 400 mg oral capsule 1 cap 2 times per day [Active]; - PMHx: 12:15 breast cancer; Diabetes - NIDDM; High Cholesterol; Hypertension; Gastric Reflux; ap3 - PSHx: 13:28 breast reduction; with implants; hysterectomy; partial; left knee repair; tl4 - Immunization history:: Client reports receiving the 2nd dose of the Covid vaccine. - Infectious Disease History:: Denies. - Social history:: Smoking status: Patient denies any tobacco usage or history of. Screenin:17 Abuse screen: Denies threats or abuse. Nutritional screening: No deficits noted. ap3 Tuberculosis screening: No symptoms or risk factors identified. 13:27 [facility] ED Fall Risk Assessment (Adult) History of falling in the last 3 months, tl4 including since admission Yes- single mechanical fall (1 pt) Confusion or Disorientation No (0 pts) Intoxicated or Sedated No (0 pts) Impaired Gait No (0 pts) Mobility Assist Device Used No (0 pt) Altered Elimination No (0 pt) Score/Fall Risk Level 0 - 2 = Low Risk Oriented to surroundings, Maintained a safe environment, Educated pt \T\ family on fall prevention, incl call for assistance when getting out of bed, Assessed \T\ reinforced patient's understanding of fall precautions. Assessment: 13:26 General: Appears in no apparent distress. Behavior is calm, cooperative. Pain: tl4 Complains of pain in face. Neuro: Level of Consciousness is awake, alert, obeys commands, Oriented to person, place, time, situation. Cardiovascular: Capillary refill < 3 seconds Patient's skin is warm and dry. Respiratory: Airway is patent Respiratory effort is even, unlabored, Respiratory pattern is regular, symmetrical, Breath sounds are clear bilaterally. GI: No signs and/or symptoms were reported involving the gastrointestinal system. : No signs and/or symptoms were reported regarding the genitourinary system. EENT: No signs and/or symptoms were reported regarding the EENT system. EENT: no loose or damaged teeth noted. Derm: No signs and/or symptoms reported regarding the dermatologic system. Musculoskeletal: No signs and/or symptoms reported regarding the musculoskeletal system. 14:05 Reassessment: Patient and/or family updated on plan of care and expected duration. Pain tl4 level reassessed. Patient is alert, oriented x 3, equal unlabored respirations, skin warm/dry/pink. Vital Signs: 12:13 BP 123 / 78; Pulse 94; Resp 18; Temp 97.8; Pulse Ox 98% ; Weight 45.81 kg; Height 4 ft. ap3 11 in. ; Pain 8/10; 14:05 BP 132 / 83; Pulse 72; Resp 16; Temp 98.2(O); Pulse Ox 99% on R/A; tl4 12:13 Body Mass Index 20.40 (45.81 kg, 149.86 cm) ap3 12:13 Pain Scale: Adult ap3 Jessica Coma Score: 12:17 Eye Response: spontaneous(4). Motor Response: obeys commands(6). Verbal Response: ap3 oriented(5). Total: 15. Trauma Score (Adult): 12:17 Eye Response: spontaneous(1); Verbal Response: oriented(1); Motor Response: obeys ap3 commands(2); Systolic BP: > 89 mm Hg(4); Respiratory Rate: 10 to 29 per min(4); Jessica Score: 15; Trauma Score: 12 ED Course: 12:06 Patient arrived in ED. im 12:06 Mario Garcia MD is Attending Physician. ec2 12:15 Triage completed. ap3 12:17 Arm band placed on right wrist. ap3 12:42 Facial Bones W/O Con CT In Process Unspecified. EDMS 13:14 Magdiel Montana, RN is Primary Nurse. tl4 13:27 No provider procedures requiring assistance completed. Patient did not have IV access tl4 during this emergency room visit. 13:28 Patient has correct armband on for positive identification. Bed in low position. Call tl4 light in reach. Side rails up X 1. Adult w/ patient. Provided Education on: ed process, call whiting. Client placed on continuous cardiac and pulse oximetry monitoring. NIBP monitoring applied. Door closed. Noise minimized. Moved to private room. Warm blanket given. 14:07 Wound care: ice pack applied. tl4 Administered Medications: 13:22 Drug: Boostrix Tdap IM 0.5 ml IM once; as a single dose {Note: [employer] Lot tl4 #[id number] Expiration date 11/06/2025 VIS date 10/26/2020.} Route: IM; Site: right deltoid; 13:48 Follow up: Response: No adverse reaction tl4 Medication: 13:27 Vaccine Information Statement (VIS) provided today. Questions and/or concerns tl4 addressed. VIS edition date: October 26, 2020. Outcome: 13:46 Discharge ordered by . ec2 14:06 Discharged to home ambulatory, with family, tl4 14:06 Condition: stable 14:06 Discharge instructions given to patient, Instructed on discharge instructions, follow up and referral plans. medication usage, wound care, Demonstrated understanding of instructions, follow-up care, medications, wound care, 14:09 Patient left the ED. tl4 Signatures: Dispatcher [employer] Roopa Robison RN RN ap3 Tran Espinoza Edwin, MD MD ec2 Magdiel Montana RN RN tl4 Corrections: (The following items were deleted from the chart) 12:16 12:13 Chief complaint: Patient states: she fell yesterday after being pulled by her ap3 dog. patient states she fell onto the road hitting her chin, knees, and her right wrist. Patient complains of pain to her chin, and a headache of which she rates a 8/10 on the pain scale at this time ap3 13:47 12:15 PMHx: breast cancer; ap3 tl4 13:47 12:15 PMHx: breast cancer; ap3 tl4 13:47 12:15 PMHx: breast cancer; ap3 tl4 13:47 13:28 PSHx: breast reduction; tl4 tl4 13:47 13:28 PSHx: breast reduction; tl4 tl4 13:47 13:28 PSHx: breast reduction; tl4 tl4
--- NOTE | 2023-09-22 13:47 | EDPHYS ---
Physician Documentation [facility] Name: Sonya Duff Age: 58 yrs Sex: Female : 1965 Arrival Date: 09/22/2023 Time: 12:04 Bed 9 Private MD: ED Physician Mario Garcia HPI: 09/21 12:31 This 58 yrs old Female presents to ER via Ambulatory with complaints of Fall ec2 Injury. 12:31 Patient arrives today for evaluation of a fall. States that she had fallen yesterday, ec2 states that she had fallen on her right chin as well as her outstretched hands. No LOC, no blood thinners. Came for evaluation due to the bruising in the right chin.. Historical: - Allergies: 12:15 No Known Allergies; ap3 - Home Meds: 14:04 citalopram 10 mg tab 1 tab once daily [Active]; letrozole 2.5 mg oral tablet 1 tab tl4 daily [Active]; zolpidem 10 mg Oral tab 1 tab once daily [Active]; tizanidine oral [Active]; gabapentin 400 mg oral capsule 1 cap 2 times per day [Active]; - PMHx: 12:15 breast cancer; Diabetes - NIDDM; High Cholesterol; Hypertension; Gastric Reflux; ap3 - PSHx: 13:28 breast reduction; with implants; hysterectomy; partial; left knee repair; tl4 - Immunization history:: Client reports receiving the 2nd dose of the Covid vaccine. - Infectious Disease History:: Denies. - Social history:: Smoking status: Patient denies any tobacco usage or history of. ROS: 12:31 Constitutional: as per hpi ec2 Exam: 12:31 Constitutional: GEN: NAD Head: atraumatic Eyes: EOMI Ears: External ears are ec2 normal. CV: regular rate LUNGS: no respiratory distress ABD: non-distended SKIN: Contusion noted to the right chin, no malocclusion, no dental abnormalities noted. MSK: no evidence of trauma NEURO: moves all extremities equally Vital Signs: 12:13 BP 123 / 78; Pulse 94; Resp 18; Temp 97.8; Pulse Ox 98% ; Weight 45.81 kg; Height 4 ft. ap3 11 in. ; Pain 8/10; 14:05 BP 132 / 83; Pulse 72; Resp 16; Temp 98.2(O); Pulse Ox 99% on R/A; tl4 12:13 Body Mass Index 20.40 (45.81 kg, 149.86 cm) ap3 12:13 Pain Scale: Adult ap3 Sherborn Coma Score: 12:17 Eye Response: spontaneous(4). Motor Response: obeys commands(6). Verbal Response: ap3 oriented(5). Total: 15. Trauma Score (Adult): 12:17 Eye Response: spontaneous(1); Verbal Response: oriented(1); Motor Response: obeys ap3 commands(2); Systolic BP: > 89 mm Hg(4); Respiratory Rate: 10 to 29 per min(4); Jessica Score: 15; Trauma Score: 12 MDM: 12:19 Patient medically screened. ec2 12:31 Data reviewed: vital signs. ED course: Patient arrives today for evaluation of facial ec2 contusion to the right chin. Examination remarkable for skin findings as above. Differential diagnosis includes facial fracture, contusion. Additionally considered other process such as intracranial brain bleed, C-spine fracture.. 13:46 ED course: CT imaging shows no bony fracture. Will discharge home. Return precautions ec2 given.. 0702 12:31 Order name: Facial Bones W/O Con CT; Complete Time: 13:46 ec2 Administered Medications: 13:22 Drug: Boostrix Tdap IM 0.5 ml IM once; as a single dose {Note: [employer] Lot tl4 #[id number] Expiration date 11/06/2025 VIS date 10/26/2020.} Route: IM; Site: right deltoid; 13:48 Follow up: Response: No adverse reaction tl4 Disposition Summary: 09/22/23 13:46 Discharge Ordered Notes: Location: Home ec2 Condition: Stable ec2 Diagnosis - Right Jaw Contusion ec2 Followup: ec2 - With: Private Physician - When: - Reason: Re-evaluation by your physician Discharge Instructions: - Discharge Summary Sheet ec2 - Jaw Contusion, [id number] ec2 Forms: - Medication Reconciliation Form ec2 - Antibiotic Education ec2 - Prescription Opioid Use ec2 - Patient Portal Instructions ec2 - Leadership Thank You Letter ec2 Signatures: Dispatcher [employer] Roopa Robison RN RN ap3 Mario Garcia MD MD ec2 Magdiel Montana RN RN tl4 Corrections: (The following items were deleted from the chart) 13:47 12:15 PMHx: breast cancer; ap3 tl4 13:47 12:15 PMHx: breast cancer; ap3 tl4 13:47 12:15 PMHx: breast cancer; ap3 tl4 :47 13:28 PSHx: breast reduction; tl4 tl4 :47 13:28 PSHx: breast reduction; tl4 tl4 13:47 13:28 PSHx: breast reduction; tl4 tl4
[2023-09-22 14:32] VITALS: BP 132/83; TEMP 98.2; O2SAT 99
== END 2023-09-22 14:09 | disposition home or self-care (01) ==
LOC: ER 12:04
DX: S00.83XA Contusion of other part of head, initial encounter (principal); W18.30XA Fall on same level, unspecified, initial encounter
CPT/HCPCS: 70486; 76377